=== PATIENT | female | born 1930 | race African-American/Black ===

== ENCOUNTER 2016-08-14 12:28 | Inpatient (IN) | payer OTHER ==
[2016-08-14 13:41] LABS: MCH 28.9 pg (25.7-33.7); MCHC 32.2 g/dl (32.0-36.0); MEAN CELL VOLUME 89.7 fl (80-96); MEAN PLT VOLUME 8.6 fl (7.5-11.1); PLATELET COUNT 212 K/MM3 (134-434); RDW 19.3 % (11.6-15.6); WHITE BLOOD COUNT 8.1 K/mm3 (4.0-10.0)
--- NOTE | 2016-08-14 13:45 | PDOC ---
History of Present Illness - General History Source: Patient, Family, Old Records Exam Limitations: No Limitations - History of Present Illness Initial Comments: 08/14/16 14:10 The patient is a 86 year old female presenting with her family, with a significant past medical history of a-fib (on Coumadin), COPD, hypertension, hyperlipidemia, diabetes, CHF, and meningioma, who presents to the emergency department after being sent by Dr. Dallas Avalos for anemia and possible blood transfusion. Dr. Avalos noted that the patient's blood count was lower than her baseline. On presentation the patient notes that she has chronic body pains and shortness of breath. The patient currently has no other complaints at the moment. The patient denies chest pain, headache and dizziness. Denies fever, chills, nausea, vomit, diarrhea and constipation. Denies dysuria, frequency, urgency and hematuria. Allergies: IV and oral contrast, sulfa Past surgical history: None reported Social history: No alcohol, tobacco or drug use reported PMD - Dr. Dallas Avalos <Bucky Soliz - Last Filed: 08/14/16 14:10> - General History Source: Patient, Old Records Exam Limitations: No Limitations <Nicole Laureanoel - Last Filed: 08/14/16 16:20> - General Chief Complaint: Revisit, Lab Variance Stated Complaint: LAB VARIANCE (PCP SENT) Time Seen by Provider: 08/14/16 13:00 Past History <Bucky Soliz - Last Filed: 08/14/16 14:10> - Past Medical History Anemia: No Asthma: No Cancer: Yes (W/U in progress for BRAIN TUMOR) Cardiac Disorders: Yes (afib) CVA: No COPD: Yes CHF: Yes (A-FIB) Dementia: No Diabetes: Yes (NIDDM) GI Disorders: No Disorders: Yes (UTI) HTN: Yes Hypercholesterolemia: Yes Liver Disease: No Seizures: No Thyroid Disease: No - Surgical History Abdominal Surgery: No Appendectomy: No Cardiac Surgery: No Cholecystectomy: No Lung Surgery: No Neurologic Surgery: No Orthopedic Surgery: No - Immunization History Immunization Up to Date: Yes - Psycho/Social/Smoking Cessation Hx Anxiety: No Suicidal Ideation: No Smoking Status: Yes Smoking History: Never smoked Have you smoked in the past 12 months: No Number of Cigarettes Smoked Daily: 0 If you are a former smoker, when did you quit?: 1989 Information on smoking cessation initiated: No Hx Alcohol Use: No Drug/Substance Use Hx: No Substance Use Type: None Hx Substance Use Treatment: No <Gil Laureano - Last Filed: 08/14/16 16:20> - Past Medical History Allergies/Adverse Reactions: Allergies Allergy/AdvReac Type Severity Reaction Status Date / Time Iodinated Contrast Media - Allergy Verified 08/14/16 12:37 Oral and [IV Dye, Iodine Containing Contrast ] Sulfa (Sulfonamide Allergy Verified 08/14/16 12:37 Antibiotics) Home Medications: Ambulatory Orders Bumetanide [Bumex -] 2 mg PO DAILY 08/14/16 Diltiazem [Cardizem -] 60 mg PO BID 08/14/16 Metformin HCl [Metformin HCl ER] 500 mg PO DAILY 08/14/16 Metoprolol Tartrate [Lopressor -] 25 mg PO DAILY 08/14/16 Pregabalin [Lyrica -] 50 mg PO BID 08/14/16 Propylthiouracil 50 mg PO DAILY 08/14/16 Ranitidine [Zantac -] 150 mg PO BID 08/14/16 Review of Systems - Review of Systems Able to Perform ROS?: Yes Comments:: 08/14/16 14:10 GENERAL/CONSTITUTIONAL: No fever or chills. No weakness. HEAD, EYES, EARS, NOSE AND THROAT: No change in vision. No ear pain or discharge. No sore throat. CARDIOVASCULAR: (+) Shortness of breath. No chest pain RESPIRATORY: No cough, wheezing, or hemoptysis. GASTROINTESTINAL: No nausea, vomiting, diarrhea or constipation. GENITOURINARY: No dysuria, frequency, or change in urination. MUSCULOSKELETAL: No joint or muscle swelling or pain. No neck or back pain. SKIN: No rash NEUROLOGIC: No headache, vertigo, loss of consciousness, or change in strength/ sensation. ENDOCRINE: No increased thirst. No abnormal weight change HEMATOLOGIC/LYMPHATIC: No anemia, easy bleeding, or history of blood clots. ALLERGIC/IMMUNOLOGIC: No hives or skin allergy. <Bucky Soliz - Last Filed: 08/14/16 14:10> *Physical Exam - Vital Signs Last Vital Signs Temp Pulse Resp BP Pulse Ox 97.9 F 104 H 18 160/58 97 08/14/16 12:31 08/14/16 12:31 08/14/16 12:31 08/14/16 12:31 08/14/16 13:46 - Physical Exam Comments: 08/14/16 14:10 GENERAL: Awake, alert, and fully oriented, in no acute distress HEAD: No signs of trauma, normocephalic, atraumatic EYES: PERRLA, EOMI, sclera anicteric, conjunctiva clear ENT: Auricles normal inspection, hearing grossly normal, nares patent, oropharynx clear without exudates. Moist mucosa NECK: Normal ROM, supple, no lymphadenopathy, JVD, or masses LUNGS: (+) Diminished right lower breath sounds. HEART: Regular rate and rhythm, normal S1 and S2, no murmurs, rubs or gallops, peripheral pulses normal and equal bilaterally. ABDOMEN: Soft, nontender, normoactive bowel sounds. No guarding, no rebound. No masses EXTREMITIES: Normal inspection, Normal range of motion, no edema. No clubbing or cyanosis. NEUROLOGICAL: Cranial nerves II through XII grossly intact. Normal speech, no focal sensorimotor deficits SKIN: Warm, Dry, normal turgor, no rashes or lesions noted. <Bucky Soliz - Last Filed: 08/14/16 14:10> - Vital Signs Last Vital Signs Temp Pulse Resp BP Pulse Ox 97.9 F 104 H 18 160/58 94 L 08/14/16 12:31 08/14/16 12:31 08/14/16 12:31 08/14/16 12:31 08/14/16 12:31 <Gil Laureano - Last Filed: 08/14/16 16:20> Heart Score/ECG Review #1 ECG reviewed & interpreted by me at: 14:15 08/14/16 14:36 atrial fibrillation 99, no std/dutch, TWI III, normal axis, normal intervals, QTC 426 msec <Gil Laureano - Last Filed: 08/14/16 16:20> ED Treatment Course - LABORATORY CBC & Chemistry Diagram: 08/14/16 13:35 08/14/16 13:35 - ADDITIONAL ORDERS Additional order review: 08/14/16 13:35 RBC 2.84 L D MCV 89.7 MCHC 32.2 RDW 19.3 H D MPV 8.6 Neutrophils % Y Lymphocytes % Y <MickyrosmeryShoBuckyeunice Smithe - Last Filed: 08/14/16 14:10> - LABORATORY CBC & Chemistry Diagram: 08/14/16 13:35 08/14/16 13:35 - RADIOLOGY Radiology Studies Ordered: Category Date Time Status CHEST X-RAY PORTABLE* [RAD] Stat Radiology 08/14/16 13:13 Ordered <Gil Laureano - Last Filed: 08/14/16 16:20> Medical Decision Making - Medical Decision Making 08/14/16 13:44 A portion of this note was documented by scribe services under my direction. I have reviewed the details of the note, within reason, and agree with the documentation with the following case summary and management plan written by me. Patient treated in the ED. Nursing notes are reviewed and incorporated into the medical decision-making. Vital signs reviewed. Peripheral IV access obtained by the nurse, laboratory studies are drawn and sent, reviewed and interpreted by myself. Vital Signs Temp Pulse Resp BP Pulse Ox 97.9 F 104 H 18 160/58 94 L 08/14/16 12:31 08/14/16 12:31 08/14/16 12:31 08/14/16 12:31 08/14/16 12:31 86 year old female with past medical history of hyperlipidemia, GERD, anemia, congestive heart failure, COPD, chronic bony pains, multiple myeloma, atrial fibrillation on Coumadin sent in by primary care physician Dr. Dallas Avalos for anemia. Patient has noted in last several weeks that she's been becoming increasingly short of breath. Denies chest pain or recent illnesses. They do weekly blood draws and noticed that this week that she had a hemoglobin 8 which is typically above 10. The patient was sent in for blood transfusion as well as admission to the hospital for evaluation for potential rule out GI bleed and for we'll double myeloma and anemia. Requests Dr. Baumann and Dr. Smart for evaluation. 08/14/16 16:16 Chest xray reviewed. Cardiomegaly. CBC, BMP 08/14/16 13:35 08/14/16 13:35 CMP Sodium 136 mmol/L (136-145) 08/14/16 13:35 Potassium TNP 08/14/16 13:35 Chloride 101 mmol/L (98-107) 08/14/16 13:35 Carbon Dioxide 26 mmol/L (21-32) 08/14/16 13:35 Anion Gap 9 (8-16) 08/14/16 13:35 BUN 20 mg/dL (7-18) H D 08/14/16 13:35 Creatinine 1.5 mg/dL (0.55-1.02) H D 08/14/16 13:35 Creat Clearance w eGFR 32.77 (>60) 08/14/16 13:35 Random Glucose 87 mg/dL (74-106) 08/14/16 13:35 Calcium 10.3 mg/dL (8.5-10.1) H 08/14/16 13:35 Magnesium TNP 08/14/16 13:35 Total Bilirubin 0.5 mg/dL (0.2-1.0) D 08/14/16 13:35 AST TNP 08/14/16 13:35 ALT TNP 08/14/16 13:35 Alkaline Phosphatase TNP 08/14/16 13:35 Creatine Kinase TNP 08/14/16 13:35 Troponin I < 0.02 ng/ml (0.00-0.05) 08/14/16 13:35 B-Natriuretic Peptide TNP 08/14/16 13:35 Total Protein TNP 08/14/16 13:35 Albumin 2.5 g/dl (3.4-5.0) L D 08/14/16 13:35 Repeat labs ordered. 1u PRBC ordered. Case discussed with Dr. Simpson. He accepts patient to med/surg admission. <Gil Laureano - Last Filed: 08/14/16 16:20> *DC/Admit/Observation/Transfer - Attestations Scribe Attestion: 08/14/16 14:11 Documentation prepared by Bucky Soliz, acting as bilingual medical receptionist for Gil Laureano MD <Bucky Soliz - Last Filed: 08/14/16 14:10> - Discharge Dispostion Admit: Yes <Gil Laureano - Last Filed: 08/14/16 16:20> Diagnosis at time of Disposition: Anemia Qualifiers: Anemia type: unspecified type Qualified Code(s): D64.9 - Anemia, unspecified Multiple myeloma Qualifiers: Multiple myeloma remission status: unspecified Qualified Code(s): C90.00 - Multiple myeloma not having achieved remission - Discharge Dispostion Condition at time of disposition: Stable - Referrals Referrals: Dallas Avalos MD [Primary Care Provider] -
[2016-08-14 14:03] LABS: INR 1.81 (0.82-1.09); PROTHROMBIN TIME (PATIENT) 20.1 SEC (9.98-11.88)
[2016-08-14 14:51] LABS: PLATELET ESTIMATE ADEQUATE (NORMAL)
[2016-08-14 14:52] LABS: URINE APPEARANCE CLEAR; URINE BILIRUBIN NEGATIVE (NEGATIVE); URINE BLOOD NEGATIVE (NEGATIVE); URINE COLOR LTYELLOW; URINE GLUCOSE (UA) NEGATIVE (NEGATIVE); URINE KETONE NEGATIVE (NEGATIVE); URINE NITRITE NEGATIVE (NEGATIVE); URINE PROTEIN NEGATIVE (NEGATIVE); URINE UROBILINOGEN NEGATIVE E.U./dl (0.2-1.0)
[2016-08-14 15:28] LABS: URINE LEUK ESTERASE TRACE (NEGATIVE)
[2016-08-14 15:35] LABS: URINE BACTERIA RARE /hpf (NONE SEEN); URINE HYALINE CAST 13 /lpf; URINE RBC 2 /hpf (0-3); URINE WBC 3 /hpf (3-5)
[2016-08-14 15:40] LABS: ALBUMIN 2.5 g/dl (3.4-5.0); ANION GAP 9 (8-16); BILIRUBIN,TOTAL 0.5 mg/dL (0.2-1.0); CALCIUM 10.3 mg/dL (8.5-10.1); CO2 26 mmol/L (21-32); CREATININE 1.5 mg/dL (0.55-1.02); GLUCOSE,RANDOM 87 mg/dL (74-106)
[2016-08-14 15:51] LABS: TROPONIN I < 0.02 ng/ml (0.00-0.05)
--- NOTE | 2016-08-14 16:01 | EKG ---
Test Reason : Blood Pressure : / mmHG Vent. Rate : 099 BPM Atrial Rate : 340 BPM P-R Int : 000 ms QRS Dur : 082 ms QT Int : 332 ms P-R-T Axes : 000 -16 022 degrees QTc Int : 426 ms ATRIAL FIBRILLATION ABNORMAL ECG WHEN COMPARED WITH ECG OF 20-NOV-2015 16:19, QT HAS SHORTENED Confirmed by EMIGDIO BROWN MD ([id number]) on 08/14/2016 4:01:38 PM Referred By: Confirmed By:EMIGDIO BROWN MD
[2016-08-14 16:02] LABS: STOOL FOR OCCULT BLOOD NEGATIVE (NEGATIVE)
[2016-08-14] MEDS ORDERED: oxyCODONE HCL 5 MG TABLET PO PRN (16:39)
[2016-08-14] MEDS ORDERED: ONDANSETRON 4 MG/2 ML VIAL IVPB PRN (16:39)
--- NOTE | 2016-08-14 16:50 | HP ---
Admitting History and Physical - Primary Care Physician PCP: Dallas Avalos - Admission Chief Complaint: I was sent in for blood History of Present Illness: Ms Sanchez is a very pleasant 86 year old female who was sent in for transfusion secondary to symptomatic anemia. She says that over the past week she was having shortness of breath. She experiences it both on exertion and at rest. She had a cough earlier this week, but that has resolved. She also notes that she had abdominal pain, it is bilateral in the lower quadrant. She notes she has decreased appetite and has lost about 20 lbs in the past 6 months. She denies lightheadedness, passing out, chest pain, or melena. She is not throwing up. She was seen by Dr Avalos and was sent in for evaluation. She is still short of breath now. She denies fevers, chills, diarrhea, difficulty or pain on urination, or edema. She has a history of constipation but it is treated with medications. History Source: Patient, Family Member Limitations to Obtaining History: No Limitations - Past Medical History Cardiovascular: Yes: AFIB, HTN, Hyperlipdemia Pulmonary: Yes: COPD Renal/: Yes: UTI (recent Hx of ESBL UTI) Endocrine: Yes: Diabetes Mellitus - Past Surgical History Past Surgical History: Yes: Joint Replacement - Smoking History Smoking history: Never smoked Have you smoked in the past 12 months: No Aproximately how many cigarettes per day: 0 If you are a former smoker, when did you quit?: 1989 - Alcohol/Substance Use Hx Alcohol Use: No History of Substance Use: reports: None - Social History Usual Living Arrangement: Yes: With Child ADL: Support Services History of Recent Travel: No Home Medications - Allergies Allergies/Adverse Reactions: Allergies Allergy/AdvReac Type Severity Reaction Status Date / Time Iodinated Contrast Media - Allergy Verified 08/14/16 12:37 Oral and [IV Dye, Iodine Containing Contrast ] Sulfa (Sulfonamide Allergy Verified 08/14/16 12:37 Antibiotics) - Home Medications Home Medications: Ambulatory Orders Atorvastatin Ca [Lipitor] 20 mg PO HS 08/14/16 Bumetanide [Bumex -] 2 mg PO DAILY 08/14/16 Diltiazem [Cardizem -] 60 mg PO BID 08/14/16 Ergocalciferol (Vitamin D2) [Vitamin D2] 2,000 unit PO DAILY 08/14/16 Metformin HCl [Metformin HCl ER] 500 mg PO DAILY 08/14/16 Metoprolol Tartrate [Lopressor -] 25 mg PO DAILY 08/14/16 Montelukast Na [Singulair -] 10 mg PO HS 08/14/16 Oxycodone HCl/Acetaminophen [Oxycodone-Acetaminophen 5-325] 1 each PO DAILY PRN 08/14/16 Potassium Chloride [Klor-Con] 20 meq PO DAILY 08/14/16 Pregabalin [Lyrica -] 50 mg PO BID 08/14/16 Propylthiouracil 50 mg PO DAILY 08/14/16 Ranitidine [Zantac -] 150 mg PO BID 08/14/16 Family Disease History - Family Disease History Family Disease History: CA: Father, Mother, Sister Review of Systems Findings/Remarks: Full review of systems obtained, as per HPI and otherwise negative Physical Examination Vital Signs: Vital Signs Temperature 97.9 F 08/14/16 12:31 Pulse Rate 104 H 08/14/16 12:31 Respiratory Rate 18 08/14/16 12:31 Blood Pressure 160/58 08/14/16 12:31 O2 Sat by Pulse Oximetry (%) 97 08/14/16 13:46 Constitutional: Yes: Well Nourished, No Distress, Calm Eyes: Yes: Conjunctiva Clear, EOM Intact, PERRL HENT: Yes: Atraumatic, Normocephalic Cardiovascular: Yes: Pulse Irregular. No: Tachycardia, Gallop, Murmur, Rub Respiratory: Yes: CTA Bilaterally, Tachypnea. No: Rales, Rhonchi, Wheezes Gastrointestinal: Yes: Normal Bowel Sounds, Soft. No: Distention, Tenderness Extremities: Yes: WNL Edema: No Labs: Laboratory Results - last 24 hr 08/14/16 08/14/16 08/14/16 13:13 13:35 13:35 WBC 8.1 RBC 2.84 L D Hgb 8.2 L D Hct 25.4 L D MCV 89.7 MCHC 32.2 RDW 19.3 H D Plt Count 212 MPV 8.6 Neutrophils % 62.0 Lymphocytes % 31.0 Monocytes % 4.0 Eosinophils % 2.0 Basophils % 1.0 Differential Comment Manual diff done Platelet Estimate Adequate INR 1.81 H PTT (Actin FS) 25.0 L D Sodium Potassium Chloride Carbon Dioxide Anion Gap BUN Creatinine Creat Clearance w eGFR Random Glucose Calcium Magnesium Total Bilirubin AST ALT Alkaline Phosphatase Creatine Kinase Troponin I B-Natriuretic Peptide Total Protein Albumin Urine Color Ltyellow Urine Appearance Clear Urine pH 5.0 Ur Specific Pep 1.010 Urine Protein Negative Urine Glucose (UA) Negative Urine Ketones Negative Urine Blood Negative Urine Nitrite Negative Urine Bilirubin Negative Urine Urobilinogen Negative Ur Leukocyte Esterase Trace H Urine RBC 2 Urine WBC 3 Ur Epithelial Cells Rare Urine Bacteria Rare Hyaline Casts 13 Stool Occult Blood Negative Blood Type Antibody Screen Crossmatch 08/14/16 08/14/16 08/14/16 13:35 13:35 15:27 WBC RBC Hgb Hct MCV MCHC RDW Plt Count MPV Neutrophils % Lymphocytes % Monocytes % Eosinophils % Basophils % Differential Comment Platelet Estimate INR PTT (Actin FS) Sodium 136 Cancelled Potassium TNP Cancelled Chloride 101 Cancelled Carbon Dioxide 26 Cancelled Anion Gap 9 Cancelled BUN 20 H D Cancelled Creatinine 1.5 H D Cancelled Creat Clearance w eGFR 32.77 Cancelled Random Glucose 87 Cancelled Calcium 10.3 H Cancelled Magnesium TNP Total Bilirubin 0.5 D Cancelled AST TNP Cancelled ALT TNP Cancelled Alkaline Phosphatase TNP Cancelled Creatine Kinase TNP Cancelled Troponin I < 0.02 Cancelled B-Natriuretic Peptide TNP Cancelled Total Protein TNP Cancelled Albumin 2.5 L D Cancelled Urine Color Urine Appearance Urine pH Ur Specific Pep Urine Protein Urine Glucose (UA) Urine Ketones Urine Blood Urine Nitrite Urine Bilirubin Urine Urobilinogen Ur Leukocyte Esterase Urine RBC Urine WBC Ur Epithelial Cells Urine Bacteria Hyaline Casts Stool Occult Blood Blood Type O POSITIVE Antibody Screen Negative Crossmatch See Detail Imaging - Results Chest X-ray: Report Reviewed, Image Reviewed Problem List - Problems (1) Anemia Assessment/Plan: -suspect secondary to multiple myeloma -transfuse -consult hematology -monitor Code(s): D64.9 - ANEMIA, UNSPECIFIED Qualifiers: Anemia type: unspecified type Qualified Code(s): D64.9 - Anemia, unspecified (2) Multiple myeloma Assessment/Plan: -family says do not want aggressive therapy -hematology consulted for treatment options Code(s): C90.00 - MULTIPLE MYELOMA NOT HAVING ACHIEVED REMISSION Qualifiers: Multiple myeloma remission status: not in remission Qualified Code(s ): C90.00 - Multiple myeloma not having achieved remission (3) Atrial fibrillation Assessment/Plan: -rate controlled -will hold coumadin at the moment since with anemia Code(s): I48.91 - UNSPECIFIED ATRIAL FIBRILLATION Qualifiers: Atrial fibrillation type: chronic Qualified Code(s): I48.2 - Chronic atrial fibrillation (4) COPD (chronic obstructive pulmonary disease) Assessment/Plan: -patient with shortness of breath -transfuse -if still short of breath, will treat for exacerbation Code(s): J44.9 - CHRONIC OBSTRUCTIVE PULMONARY DISEASE, UNSPECIFIED (5) Congestive heart failure Assessment/Plan: -not in exacerbation -hold diuretics since with CHEL Code(s): I50.9 - HEART FAILURE, UNSPECIFIED (6) Diabetes mellitus Assessment/Plan: -continue home regimen -FSBS and SSI Code(s): E11.9 - TYPE 2 DIABETES MELLITUS WITHOUT COMPLICATIONS (7) Hyperlipidemia Assessment/Plan: -continue lipitor Code(s): E78.5 - HYPERLIPIDEMIA, UNSPECIFIED (8) CHEL (acute kidney injury) Assessment/Plan: -secondary to anemia -transfuse Code(s): N17.9 - ACUTE KIDNEY FAILURE, UNSPECIFIED
[2016-08-14] MEDS ORDERED: oxyCODONE HCL 5 MG TABLET PO ONE (17:09)
--- NOTE | 2016-08-14 17:09 | CON.GI ---
Consult Consult Specialty:: GI Referred by:: Dr. Landry Simpson Reason for Consultation:: Anemia - History of Present Illness Chief Complaint: "My doctor told me my blood was low" History of Present Illness: 86F admitted through [facility] ER for evaluation of anemia. She denies nausea, vomiting, dysphagia, odynophagia, overt rectal bleeding, melena. She denies OTC NSAID use. She gives a history of chronic constipation however there has been no acute change in her bowel habits. Her family was bedside aiding with her history. She may have had 2 colonoscopies and possibly an upper endoscopy in her lifetime with Dr. Poe however quite a few years ago. Her mother at age 82 from colon cancer complications while one of her sisters may have had stomach cancer. Ms. Alicea also has a ? history of multiple myeloma. She had a guaiac performed in the ER that was negative. - History Source History Provided By: Patient, Family Member Limitations to Obtaining History: No Limitations - Past Medical History Cardio/Vascular: Yes: AFIB, HTN, Hyperlipdemia Pulmonary: Yes: COPD Renal/: Yes: UTI (recent Hx of ESBL UTI) Endocrine: Yes: Diabetes Mellitus - Past Surgical History Past Surgical History: Yes: Joint Replacement (Right total hip replacement) - Alcohol/Substance Use Hx Alcohol Use: No History of Substance Use: reports: None - Smoking History Smoking history: Never smoked Have you smoked in the past 12 months: No Aproximately how many cigarettes per day: 0 If you are a former smoker, when did you quit?: 1989 - Social History ADL: Support Services Occupation: Retired Place of : [employer] History of Recent Travel: No Home Medications - Allergies Allergies/Adverse Reactions: Allergies Allergy/AdvReac Type Severity Reaction Status Date / Time Iodinated Contrast Media - Allergy Verified 08/14/16 12:37 Oral and [IV Dye, Iodine Containing Contrast ] Sulfa (Sulfonamide Allergy Verified 08/14/16 12:37 Antibiotics) - Home Medications Home Medications: Ambulatory Orders Atorvastatin Ca [Lipitor] 20 mg PO HS 08/14/16 Bumetanide [Bumex -] 2 mg PO DAILY 08/14/16 Diltiazem [Cardizem -] 60 mg PO BID 08/14/16 Ergocalciferol (Vitamin D2) [Vitamin D2] 2,000 unit PO DAILY 08/14/16 Metformin HCl [Metformin HCl ER] 500 mg PO DAILY 08/14/16 Metoprolol Tartrate [Lopressor -] 25 mg PO DAILY 08/14/16 Montelukast Na [Singulair -] 10 mg PO HS 08/14/16 Oxycodone HCl/Acetaminophen [Oxycodone-Acetaminophen 5-325] 1 each PO DAILY PRN 08/14/16 Potassium Chloride [Klor-Con] 20 meq PO DAILY 08/14/16 Pregabalin [Lyrica -] 50 mg PO BID 08/14/16 Propylthiouracil 50 mg PO DAILY 08/14/16 Ranitidine [Zantac -] 150 mg PO BID 08/14/16 Family Disease History - Family Disease History Family Disease History: CA: Father ( 58 Throat cancer), Mother ( 82 colon cancer), Sister (1 , stomach cancer, 1 sarcoidosis), Other: Son ( 2 healthy), Daughter (4 healthy) Review of Systems - Review of Systems Cardiovascular: reports: Shortness of Breath. denies: Chest Pain Gastrointestinal: reports: Abdominal Pain (lower flanks b/l), Constipation. denies: Melena, Rectal Bleeding Physical Exam-GI Vital Signs: Vital Signs Temperature 97.9 F 08/14/16 12:31 Pulse Rate 90 08/14/16 16:41 Respiratory Rate 20 08/14/16 16:41 Blood Pressure 112/60 08/14/16 16:41 O2 Sat by Pulse Oximetry (%) 92 L 08/14/16 16:41 Constitutional: Yes: Calm Eyes: No: Sclera Icterus Cardiovascular: Yes: Pulse Irregular (regular rate) Respiratory: Yes: Diminished (at bases, poor inspiratory effort) Gastrointestinal Inspection: No: Distention ...Auscultate: Yes: Normoactive Bowel Sounds ...Palpate: No: Hepatomegaly, Splenomegaly, Tenderness ...Rectal Exam: Yes: Guaiac Negative (Brown stool, no masses) Edema: No (lipoma on right sumner) Neurological: Yes: Alert Labs: INR, PTT INR 1.81 (0.82-1.09) H 08/14/16 13:35 CBC, BMP 08/14/16 13:35 08/14/16 15:27 Hepatic Panel Total Bilirubin 0.5 mg/dL (0.2-1.0) D 08/14/16 13:35 AST TNP 08/14/16 13:35 ALT TNP 08/14/16 13:35 Alkaline Phosphatase TNP 08/14/16 13:35 Albumin 2.5 g/dl (3.4-5.0) L D 08/14/16 13:35 Problem List - Problems (1) Anemia Assessment/Plan: For heme work-up and blood transfusion. I also discussed a GI work-up with Ms. Alicea and her family who was present bedside, particularly in the setting of a family history of GI malignancies. We discussed EGD/Colonoscopy. We discussed potential risks of the procedures like but not limited to bleeding, perforation requiring surgery to repair, infection and sedation medication effects all of which could be potentially life threatening. Her and her family would like to think about this and have her undergo hematologic evaluation prior to committing her to invasive testing. Heme consult pending Code(s): D64.9 - ANEMIA, UNSPECIFIED Qualifiers: Anemia type: unspecified type Qualified Code(s): D64.9 - Anemia, unspecified
[2016-08-14 17:47] VITALS: BMI 23.3
--- NOTE | 2016-08-14 22:42 | CONSULT ---
Consult - text type - Consultation Consultation Note: The patient is a 86 year old female presenting with her family, with a significant past medical history of a-fib (on Coumadin), COPD, hypertension, hyperlipidemia, diabetes, CHF, and meningioma, who presents to the emergency department after being sent by Dr. Dallas Avalos for anemia and possible blood transfusion. Dr. Avalos noted that the patient's blood count was lower than her baseline. Patient notes that she has chronic body pains and shortness of breath. The patient is mildly confused. Allergies: IV and oral contrast, sulfa Past surgical history: None reported Social history: No alcohol, tobacco or drug use - Past Medical History Cancer: Yes (W/U in progress for BRAIN TUMOR) Cardiac Disorders: Yes (afib) COPD: Yes CHF: Yes (A-FIB) Diabetes: Yes (NIDDM) Disorders: Yes (UTI) HTN: Yes Hypercholesterolemia: Yes ?? mYELOMA - Psycho/Social/Smoking Cessation Hx Smoking Status: Yes Smoking History: Never smoked Allergies/Adverse Reactions: Allergies Allergy/AdvReac Type Severity Reaction Status Date / Time Iodinated Contrast Media - Allergy Verified 08/14/16 12:37 Oral and [IV Dye, Iodine Containing Contrast ] Sulfa (Sulfonamide Allergy Verified 08/14/16 12:37 Antibiotics) Home Medications: Ambulatory Orders Bumetanide [Bumex -] 2 mg PO DAILY 08/14/16 Diltiazem [Cardizem -] 60 mg PO BID 08/14/16 Metformin HCl [Metformin HCl ER] 500 mg PO DAILY 08/14/16 Metoprolol Tartrate [Lopressor -] 25 mg PO DAILY 08/14/16 Pregabalin [Lyrica -] 50 mg PO BID 08/14/16 Propylthiouracil 50 mg PO DAILY 08/14/16 Ranitidine [Zantac -] 150 mg PO BID 08/14/16 - Vital Signs afvss GENERAL: Awake, alert, and fully oriented, in no acute distress HEAD: No signs of trauma, normocephalic, atraumatic NECK: Normal ROM, supple, no lymphadenopathy, JVD, or masses LUNGS: (+) Diminished right lower breath sounds. HEART: Regular rate and rhythm, normal S1 and S2, no murmurs, rubs or gallops, ABDOMEN: Soft, nontender, normoactive bowel sounds. No guarding, no rebound. No masses EXTREMITIES: Normal inspection, Normal range of motion, no edema. No clubbing or cyanosis. NEUROLOGICAL: Cranial nerves II through XII grossly intact. Normal speech, no focal sensorimotor deficits SKIN: Warm, Dry, normal turgor, no rashes or lesions noted. lABS REVIEWED a/p 86 year old female with past medical history of hyperlipidemia, GERD, anemia, congestive heart failure, COPD, chronic bony pains, atrial fibrillation on Coumadin sent in by primary care physician for anemia. Patient WAS ADMITTED FOR EXERTIONAL SHORTNESS OF BREATH. Need to discuss with PMD about h/o myeloma ALbumin/globulin ratio and hypercalcemia, anemia seenm to be s/o myeloma will check SFLCA/SPEP/UPEP/bone survery transfusion support will follow
[2016-08-14] MEDS: PREGABALIN 50 MG CAPSULE PO SCH (23:02)
[2016-08-14] MEDS: RANITIDINE HCL 150 MG TABLET (FP) PO SCH (23:02)
[2016-08-14] MEDS: MONTELUKAST NA 10 MG TABLET PO SCH (23:02)
[2016-08-14] MEDS: DOCUSATE SODIUM 100 MG CAPSULE (FP) PO SCH (23:02)
[2016-08-14] MEDS: ATORVASTATIN CA 10 MG TABLET (FP) PO SCH (23:02)
[2016-08-14] MEDS: dilTIAZem HCL 60 MG TABLET (FP) PO SCH (23:03)
[2016-08-15] MEDS ORDERED: INSULIN (NOVOLOG) ASPART 100 UNITS/ML 10ML VIAL ONE (05:48)
[2016-08-15] MEDS: INSULIN SLIDING SCALE (NOVOLOG) 1 VIAL SQ SCH ×2 (07:23→17:54)
[2016-08-15 07:45] LABS: MCH 29.1 pg (25.7-33.7); MCHC 32.8 g/dl (32.0-36.0); MEAN CELL VOLUME 88.6 fl (80-96); MEAN PLT VOLUME 8.8 fl (7.5-11.1); PLATELET COUNT 212 K/MM3 (134-434); RDW 19.3 % (11.6-15.6); WHITE BLOOD COUNT 6.4 K/mm3 (4.0-10.0)
[2016-08-15] MEDS: METOPROLOL SUCCINATE 25 MG TAB.SR.24H (FP) PO SCH (09:19)
[2016-08-15] MEDS: dilTIAZem HCL 60 MG TABLET (FP) PO SCH ×2 (09:19→22:54)
[2016-08-15] MEDS: CHOLECALCIFEROL (VITAMIN D3) 1,000 UNIT TABLET (FP) PO SCH (09:20)
[2016-08-15] MEDS: RANITIDINE HCL 150 MG TABLET (FP) PO SCH ×2 (09:20→22:53)
[2016-08-15] MEDS: PREGABALIN 50 MG CAPSULE PO SCH ×2 (09:20→22:54)
[2016-08-15] MEDS: POLYETHYLENE GLYCOL 3350 119 GM BTL PO SCH (09:20)
[2016-08-15] MEDS: DOCUSATE SODIUM 100 MG CAPSULE (FP) PO SCH ×2 (09:20→22:54)
[2016-08-15 09:36] LABS: PLATELET ESTIMATE ADEQUATE (NORMAL)
[2016-08-15 10:20] LABS: CALCIUM 9.8 mg/dL (8.5-10.1); COCKROFT - GAULT 32.4785; CREATININE 1.2 mg/dL (0.55-1.02); MAGNESIUM 1.7 mg/dL (1.8-2.4); PHOSPHOROUS 3.5 mg/dL (2.5-4.9)
[2016-08-15 10:28] LABS: THYROID STIMULATING HORMONE 0.57 uIU/ml (0.358-3.74)
[2016-08-15 11:46] LABS: FERRITIN 357.668 ng/ml (6.9-282.5); FREE T4 1.22 ng/dl (0.76-1.46)
--- NOTE | 2016-08-15 12:55 | PN ---
Progress Note, Physician Chief Complaint: Ms Sanchez is without complaint. Is not short of breath currently. No cp or n/ v. - Current Medication List Current Medications: Active Medications Acetaminophen (Tylenol -) 650 mg PO Q4H PRN PRN Reason: FEVER OR PAIN Albuterol Sulfate (Ventolin 0.083% Nebulizer Soln -) 1 amp NEB Q6H PRN PRN Reason: SHORT OF BREATH/WHEEZING Atorvastatin Calcium (Lipitor -) 10 mg PO [facility] Last Admin: 08/14/16 23:02 Dose: 10 mg Cholecalciferol (Vitamin D3 -) 2,000 unit PO DAILY [facility] Last Admin: 08/15/16 09:20 Dose: 2,000 unit Diltiazem HCl (Cardizem -) 60 mg PO BID [facility] Last Admin: 08/15/16 09:19 Dose: 60 mg Docusate Sodium (Colace -) 100 mg PO BID [facility] Last Admin: 08/15/16 09:20 Dose: 100 mg Insulin Aspart (Novolog Vial Sliding Scale -) [facility] PR[facility] Reason: Protocol Last Admin: 08/15/16 07:23 Dose: Not Given Ipratropium [place] (Atrovent 0.02% Nebulizer -) 1 amp NEB Q6H PRN PRN Reason: WHEEZING Metoprolol Succinate (Toprol Xl -) 25 mg PO DAILY [facility] Last Admin: 08/15/16 09:19 Dose: 25 mg Montelukast Sodium (Singulair -) 10 mg PO HS [facility] Last Admin: 08/14/16 23:02 Dose: 10 mg Ondansetron HCl (Zofran Injection) 4 mg IVPB Q6H PRN PRN Reason: NAUSEA Oxycodone HCl (Roxicodone -) 5 mg PO Q4H PRN PRN Reason: PAIN Polyethylene Glycol (Miralax (For Daily Use) -) 17 gm PO DAILY [facility] Last Admin: 08/15/16 09:20 Dose: 17 gm Pregabalin (Lyrica -) 50 mg PO BID [facility] Last Admin: 08/15/16 09:20 Dose: 50 mg Propylthiouracil (Ptu -) 50 mg PO DAILY [facility] Ranitidine HCl (Zantac -) 150 mg PO BID [facility] Last Admin: 08/15/16 09:20 Dose: 150 mg - Objective Vital Signs: Vital Signs Temperature 98.1 F 08/15/16 07:50 Pulse Rate 103 H 08/15/16 07:50 Respiratory Rate 20 08/15/16 07:50 Blood Pressure 115/82 08/15/16 07:50 O2 Sat by Pulse Oximetry (%) 97 08/15/16 09:00 Constitutional: Yes: Well Nourished, No Distress, Calm Cardiovascular: Yes: Regular Rate and Rhythm. No: Gallop, Murmur, Rub Respiratory: Yes: Regular, CTA Bilaterally. No: Rales, Rhonchi, Wheezes Gastrointestinal: Yes: Normal Bowel Sounds, Soft. No: Distention, Tenderness Extremities: Yes: WNL Edema: No Labs: CBC, BMP 08/15/16 06:00 08/15/16 06:00 INR, PTT INR 1.81 (0.82-1.09) H 08/14/16 13:35 Problem List - Problems (1) Anemia Code(s): D64.9 - ANEMIA, UNSPECIFIED Qualifiers: Anemia type: unspecified type Qualified Code(s): D64.9 - Anemia, unspecified (2) Multiple myeloma Code(s): C90.00 - MULTIPLE MYELOMA NOT HAVING ACHIEVED REMISSION Qualifiers: Multiple myeloma remission status: not in remission Qualified Code(s ): C90.00 - Multiple myeloma not having achieved remission (3) Atrial fibrillation Code(s): I48.91 - UNSPECIFIED ATRIAL FIBRILLATION Qualifiers: Atrial fibrillation type: chronic Qualified Code(s): I48.2 - Chronic atrial fibrillation (4) COPD (chronic obstructive pulmonary disease) Code(s): J44.9 - CHRONIC OBSTRUCTIVE PULMONARY DISEASE, UNSPECIFIED (5) Congestive heart failure Code(s): I50.9 - HEART FAILURE, UNSPECIFIED (6) Diabetes mellitus Code(s): E11.9 - TYPE 2 DIABETES MELLITUS WITHOUT COMPLICATIONS (7) Hyperlipidemia Code(s): E78.5 - HYPERLIPIDEMIA, UNSPECIFIED (8) CHEL (acute kidney injury) Code(s): N17.9 - ACUTE KIDNEY FAILURE, UNSPECIFIED Assessment/Plan (1) Anemia Assessment/Plan: -suspect secondary to multiple myeloma -blood transfusion held, will give today Code(s): D64.9 - ANEMIA, UNSPECIFIED Qualifiers: Anemia type: unspecified type Qualified Code(s): D64.9 - Anemia, unspecified (2) Multiple myeloma Assessment/Plan: -family says do not want aggressive therapy -hematology consulted for treatment options Code(s): C90.00 - MULTIPLE MYELOMA NOT HAVING ACHIEVED REMISSION Qualifiers: Multiple myeloma remission status: not in remission Qualified Code(s ): C90.00 - Multiple myeloma not having achieved remission (3) Atrial fibrillation Assessment/Plan: -rate controlled -continue to hold coumadin until clear not blood loss anemia Code(s): I48.91 - UNSPECIFIED ATRIAL FIBRILLATION Qualifiers: Atrial fibrillation type: chronic Qualified Code(s): I48.2 - Chronic atrial fibrillation (4) COPD (chronic obstructive pulmonary disease) Assessment/Plan: -improved today -monitor after transfusion Code(s): J44.9 - CHRONIC OBSTRUCTIVE PULMONARY DISEASE, UNSPECIFIED (5) Congestive heart failure Assessment/Plan: -not in exacerbation -hold diuretics since with CHEL Code(s): I50.9 - HEART FAILURE, UNSPECIFIED (6) Diabetes mellitus Assessment/Plan: -continue home regimen -FSBS and SSI Code(s): E11.9 - TYPE 2 DIABETES MELLITUS WITHOUT COMPLICATIONS (7) Hyperlipidemia Assessment/Plan: -continue lipitor Code(s): E78.5 - HYPERLIPIDEMIA, UNSPECIFIED (8) CHEL (acute kidney injury) Assessment/Plan: -improved but not baseline -transfuse -monitor for improvement Code(s): N17.9 - ACUTE KIDNEY FAILURE, UNSPECIFIED
--- NOTE | 2016-08-15 16:37 | PN ---
GI Progress Note Subjective: GI NOte: NO overt GI bleeding. Has back pain. Discussed case with Dr Figueroa who given the hypercalcemia feels the anemia reflects myeloma - Objective Vital Signs: Vital Signs Temperature 98.7 F 08/15/16 14:34 Pulse Rate 82 08/15/16 14:34 Respiratory Rate 18 08/15/16 14:34 Blood Pressure 114/79 08/15/16 14:34 O2 Sat by Pulse Oximetry (%) 97 08/15/16 09:00 Constitutional: Calm ...Auscultate: Yes: Normoactive Bowel Sounds ...Palpate: Yes: Soft, Other (nontender) Labs: CBC, BMP 08/15/16 06:00 08/15/16 06:00 INR, PTT INR 1.81 (0.82-1.09) H 08/14/16 13:35 Assessment/Plan Anemia appears to be on a hematological basis. Please recall us as necessary. Dr Poe will be covering this 3 day weekend.
[2016-08-15] MEDS: PROPYLTHIOURACIL 50 MG TABLET (UD) PO SCH (17:25)
[2016-08-15] MEDS: MONTELUKAST NA 10 MG TABLET PO SCH (22:54)
[2016-08-15] MEDS: ATORVASTATIN CA 10 MG TABLET (FP) PO SCH (22:54)
[2016-08-16] MEDS ORDERED: INSULIN (NOVOLOG) ASPART 100 UNITS/ML 10ML VIAL ONE (06:02)
[2016-08-16 06:11] LABS: SERUM IRON 67 ug/dL (27-139); TOTAL IRON BINDING CAPACITY 175 ug/dL (250-450); UIBC 108 ug/dL (118-369)
[2016-08-16] MEDS: INSULIN SLIDING SCALE (NOVOLOG) 1 VIAL SQ SCH ×2 (06:17→17:04)
[2016-08-16 07:42] LABS: MCHC 33.2 g/dl (32.0-36.0); MEAN CELL VOLUME 87.4 fl (80-96); MEAN PLT VOLUME 8.9 fl (7.5-11.1); PLATELET COUNT 208 K/MM3 (134-434); RDW 18.3 % (11.6-15.6); WHITE BLOOD COUNT 8.1 K/mm3 (4.0-10.0)
--- NOTE | 2016-08-16 08:03 | HOSP ---
Physical Examination Vital Signs: Vital Signs Temperature 98.9 F 08/16/16 06:17 Pulse Rate 99 H 08/16/16 06:17 Respiratory Rate 20 08/16/16 06:17 Blood Pressure 132/79 08/16/16 06:17 O2 Sat by Pulse Oximetry (%) 97 08/15/16 21:00 Labs: CBC, BMP 08/16/16 06:00 Hospitalist Encounter Assessment: Notified by RN that patient was found on the floor. Patient admitted for symptomatic anemia and all anticoagulation and platelets have been held. When examining the patient , she was confused but baseline. She reports she was talking to her son on the phone and had to get up. When asking if she hit her head she reports "I hit my head on the soft part of the bed." She denies any dizziness, chest pain, shortness of breath, nausea, or vomiting. Vitals: BP- 121/58 HR- 109 TEMP: 98.8 F 02: 96% RA Physical Exam: -GENERAL: Alert Awake and oriented to person -HEAD: No signs of trauma -EYES: PERRL, Sclera anicterus -MOUTH: Moist mucous membranes -LUNGS: CTA bilaterally -CHEST: Tachycardia with regular rhythm, no m/r/g -ABDOMEN: Soft, nontender, nondistended, no ecchymosis -NEURO: Sensory intact. Normal strength bilaterally. PLAN: -Fall protocol ordered -Head CT ordered -Repeat INR ordered -Monitoring Q2H Visit type - Emergency Visit Emergency Visit: No - New Patient This patient is new to me today: Yes Date on this admission: 08/16/16 - Critical Care Critical Care patient: No
[2016-08-16 08:18] LABS: INR 1.74 (0.82-1.09); PROTHROMBIN TIME (PATIENT) 19.4 SEC (9.98-11.88)
[2016-08-16] MEDS: dilTIAZem HCL 60 MG TABLET (FP) PO SCH ×2 (10:23→21:41)
[2016-08-16] MEDS: METOPROLOL SUCCINATE 25 MG TAB.SR.24H (FP) PO SCH (10:23)
[2016-08-16] MEDS: DOCUSATE SODIUM 100 MG CAPSULE (FP) PO SCH ×2 (10:23→21:41)
[2016-08-16] MEDS: RANITIDINE HCL 150 MG TABLET (FP) PO SCH ×2 (10:23→21:41)
[2016-08-16] MEDS: PREGABALIN 50 MG CAPSULE PO SCH ×2 (10:23→21:41)
[2016-08-16] MEDS: CHOLECALCIFEROL (VITAMIN D3) 1,000 UNIT TABLET (FP) PO SCH (10:23)
[2016-08-16 10:24] LABS: ALBUMIN 2.7 g/dl (3.4-5.0); BILIRUBIN,TOTAL 0.9 mg/dL (0.2-1.0); COCKROFT - GAULT 32.4785; CREATININE 1.2 mg/dL (0.55-1.02); MAGNESIUM 1.8 mg/dL (1.8-2.4); PHOSPHOROUS 2.9 mg/dL (2.5-4.9)
[2016-08-16] MEDS: CYANOCOBALAMIN (VITAMIN B-12) 1000 MCG/1 ML VIAL IM SCH (10:24)
[2016-08-16] MEDS: PROPYLTHIOURACIL 50 MG TABLET (UD) PO SCH (10:24)
[2016-08-16] MEDS: POLYETHYLENE GLYCOL 3350 119 GM BTL PO SCH (10:25)
[2016-08-16 10:28] LABS: TOT PROT 11.8 g/dl (6.4-8.2)
[2016-08-16 11:06] LABS: ANISOCYTOSIS 1+; HYPOCHROMIA 1+; PLATELET COMMENT2 NO CLOTTING DETECTED; PLATELET ESTIMATE ADEQUATE (NORMAL); POLYCHROMASIA 2+; SMUDGE CELLS FEW
[2016-08-16] MEDS: ACETAMINOPHEN 325 MG TABLET (FP) PO PRN (11:41)
--- NOTE | 2016-08-16 13:21 | PN ---
Progress Note, Physician Chief Complaint: Patient doesn't recall her fall this AM. No headache. History of Present Illness: Patient admitted for anemia thought to be due to Multiple Myeloma and given a blood transfusion. Hb today 9.2 GM. Slipped to floor in room today; CAT Scan of head: No acute change. Patient is pleasant but continues to be confused even before the fall. Also DM with low normal BGM's; not on routine DM Meds. K 3.2 : to Rx and follow. - Current Medication List Current Medications: Active Medications Acetaminophen (Tylenol -) 650 mg PO Q4H PRN PRN Reason: FEVER OR PAIN Last Admin: 08/16/16 11:41 Dose: 650 mg Albuterol Sulfate (Ventolin 0.083% Nebulizer Soln -) 1 amp NEB Q6H PRN PRN Reason: SHORT OF BREATH/WHEEZING Atorvastatin Calcium (Lipitor -) 10 mg PO HS [facility] Last Admin: 08/15/16 22:54 Dose: 10 mg Cholecalciferol (Vitamin D3 -) 2,000 unit PO DAILY [facility] Last Admin: 08/16/16 10:23 Dose: 2,000 unit Cyanocobalamin (Vitamin B12 Injection -) 1,000 mcg IM DAILY [facility] Stop: 08/20/16 10:01 Last Admin: 08/16/16 10:24 Dose: 1,000 mcg Diltiazem HCl (Cardizem -) 60 mg PO BID [facility] Last Admin: 08/16/16 10:23 Dose: 60 mg Docusate Sodium (Colace -) 100 mg PO BID [facility] Last Admin: 08/16/16 10:23 Dose: 100 mg Insulin Aspart (Novolog Vial Sliding Scale -) 0 vial SQ BIDAC [facility] PRN Reason: Protocol Last Admin: 08/16/16 06:17 Dose: Not Given Ipratropium [place] (Atrovent 0.02% Nebulizer -) 1 amp NEB Q6H PRN PRN Reason: WHEEZING Metoprolol Succinate (Toprol Xl -) 25 mg PO DAILY [facility] Last Admin: 08/16/16 10:23 Dose: 25 mg Montelukast Sodium (Singulair -) 10 mg PO HS [facility] Last Admin: 08/15/16 22:54 Dose: 10 mg Ondansetron HCl (Zofran Injection) 4 mg IVPB Q6H PRN PRN Reason: NAUSEA Oxycodone HCl (Roxicodone -) 5 mg PO Q4H PRN PRN Reason: PAIN Last Admin: 08/16/16 11:45 Dose: 5 mg Polyethylene Glycol (Miralax (For Daily Use) -) 17 gm PO DAILY [facility] Last Admin: 08/16/16 10:25 Dose: 17 gm Pregabalin (Lyrica -) 50 mg PO BID [facility] Last Admin: 08/16/16 10:23 Dose: 50 mg Propylthiouracil (Ptu -) 50 mg PO DAILY [facility] Last Admin: 08/16/16 10:24 Dose: 50 mg Ranitidine HCl (Zantac -) 150 mg PO BID [facility] Last Admin: 08/16/16 10:23 Dose: 150 mg - Objective Vital Signs: Vital Signs Temperature 98.4 F 08/16/16 12:02 Pulse Rate 116 H 08/16/16 12:02 Respiratory Rate 18 08/16/16 12:02 Blood Pressure 137/82 08/16/16 12:02 O2 Sat by Pulse Oximetry (%) 97 08/15/16 21:00 Constitutional: Yes: Calm HENT: No: Atraumatic Neck: Yes: Supple Cardiovascular: Yes: Pulse Irregular Respiratory: Yes: Diminished Gastrointestinal: Yes: Soft. No: Tenderness Genitourinary: No: Sheppard Present Edema: No Wound/Incision: Yes: Other (ecchymosis right dorsum of hand) Neurological: Yes: Alert, Confusion Labs: CBC, BMP 08/16/16 06:00 08/16/16 06:00 INR, PTT INR 1.74 (0.82-1.09) H 08/16/16 06:00 - ....Imaging Cat Scan: Report Reviewed EKG: Report Reviewed Problem List - Problems (1) Fall Assessment/Plan: Unwitnessed fall this AM; CAT of Head: No acute change fall precautions order on EMR. Code(s): W19.XXXA - UNSPECIFIED FALL, INITIAL ENCOUNTER (2) CHLE (acute kidney injury) Assessment/Plan: Stable BUN and Creatinine Code(s): N17.9 - ACUTE KIDNEY FAILURE, UNSPECIFIED (3) Anemia Assessment/Plan: After transusion HB 7.3-9.2GM Code(s): D64.9 - ANEMIA, UNSPECIFIED Qualifiers: Anemia type: unspecified type Qualified Code(s): D64.9 - Anemia, unspecified (4) Multiple myeloma Assessment/Plan: Still not in remission; seen by Hematology MD. Code(s): C90.00 - MULTIPLE MYELOMA NOT HAVING ACHIEVED REMISSION Qualifiers: Multiple myeloma remission status: not in remission Qualified Code(s ): C90.00 - Multiple myeloma not having achieved remission (5) Atrial fibrillation Assessment/Plan: May have to reconsider Coumadin restart due to fall and confusion. Code(s): I48.91 - UNSPECIFIED ATRIAL FIBRILLATION Qualifiers: Atrial fibrillation type: chronic Qualified Code(s): I48.2 - Chronic atrial fibrillation (6) Diabetes mellitus Assessment/Plan: [facility] noted Code(s): E11.9 - TYPE 2 DIABETES MELLITUS WITHOUT COMPLICATIONS (7) Confusion and disorientation Assessment/Plan: Baseline confusion; ?? had a neuro evaluation. Code(s): F99 - MENTAL DISORDER, NOT OTHERWISE SPECIFIED (8) Hypokalemia Assessment/Plan: K 3.2; will Rx and follow. Code(s): E87.6 - HYPOKALEMIA
[2016-08-16] MEDS: POTASSIUM CHLORIDE TABS 10 MEQ TABLET.ER (FP) PO SCH ×2 (14:04→21:41)
[2016-08-16] MEDS: ATORVASTATIN CA 10 MG TABLET (FP) PO SCH (21:41)
[2016-08-16] MEDS: MONTELUKAST NA 10 MG TABLET PO SCH (21:42)
[2016-08-17] MEDS: INSULIN SLIDING SCALE (NOVOLOG) 1 VIAL SQ SCH ×2 (06:00→15:55)
[2016-08-17 07:41] LABS: MCH 28.9 pg (25.7-33.7); MCHC 32.6 g/dl (32.0-36.0); MEAN CELL VOLUME 88.6 fl (80-96); MEAN PLT VOLUME 8.8 fl (7.5-11.1); PLATELET COUNT 186 K/MM3 (134-434); RDW 18.1 % (11.6-15.6); WHITE BLOOD COUNT 6.6 K/mm3 (4.0-10.0)
[2016-08-17 08:07] LABS: HEMATOCRIT 22.8 % (34.0-46.6)
[2016-08-17] MEDS: ACETAMINOPHEN 325 MG TABLET (FP) PO PRN ×3 (08:40→16:56)
[2016-08-17 08:44] LABS: CALCIUM 9.9 mg/dL (8.5-10.1); COCKROFT - GAULT 35.4365; CREATININE 1.1 mg/dL (0.55-1.02)
[2016-08-17 09:19] LABS: METAMYELOCYTE 1 % (0-2); PLATELET ESTIMATE ADEQUATE (NORMAL)
[2016-08-17 09:20] LABS: ANISOCYTOSIS 1+; HYPOCHROMIA 1+; MICROCYTOSIS 1+; POLYCHROMASIA FEW
[2016-08-17] MEDS ORDERED: PT OWN MED DRAWER 7, Y5N ONE (09:31)
[2016-08-17] MEDS: CHOLECALCIFEROL (VITAMIN D3) 1,000 UNIT TABLET (FP) PO SCH (09:32)
[2016-08-17] MEDS: POTASSIUM CHLORIDE TABS 10 MEQ TABLET.ER (FP) PO SCH ×2 (09:32→22:03)
[2016-08-17] MEDS: DOCUSATE SODIUM 100 MG CAPSULE (FP) PO SCH ×2 (09:32→22:03)
[2016-08-17] MEDS: RANITIDINE HCL 150 MG TABLET (FP) PO SCH ×2 (09:32→22:03)
[2016-08-17] MEDS: dilTIAZem HCL 60 MG TABLET (FP) PO SCH ×2 (09:32→22:03)
[2016-08-17] MEDS: PREGABALIN 50 MG CAPSULE PO SCH ×2 (09:33→22:03)
[2016-08-17] MEDS: METOPROLOL SUCCINATE 25 MG TAB.SR.24H (FP) PO SCH (09:33)
[2016-08-17] MEDS: PROPYLTHIOURACIL 50 MG TABLET (UD) PO SCH (09:33)
[2016-08-17] MEDS: POLYETHYLENE GLYCOL 3350 119 GM BTL PO SCH (09:34)
[2016-08-17] MEDS: CYANOCOBALAMIN (VITAMIN B-12) 1000 MCG/1 ML VIAL IM SCH (09:35)
[2016-08-17] MEDS: IPRATROPIUM BR 0.02% 0.5 MG/2.5 ML VIAL.NEB. NEB PRN (11:28)
[2016-08-17] MEDS: ALBUTEROL SO4 0.083% IH SOL 2.5 MG/3 ML VIAL.NEB. NEB PRN (11:29)
[2016-08-17] MEDS ORDERED: BISACODYL 5 MG TABLET.DR (FP) PO ONE (13:00)
--- NOTE | 2016-08-17 13:08 | PN ---
Progress Note, Physician Chief Complaint: Patient more talkative and smiling today. History of Present Illness: Patient admitted with anemia and Multiple Myeloma. Hb now 8.8 GM after blood transfusion. She is in atrial fibrillation and has been on coumadin on past admissions but that Rx was not on her current ambulatory msd list; I will consult Cardiology MD who knew her from previous admission. The patient was confused yesterdy but much more aware today smiling and friendly. - Current Medication List Current Medications: Active Medications Acetaminophen (Tylenol -) 650 mg PO Q4H PRN PRN Reason: FEVER OR PAIN Last Admin: 08/17/16 12:08 Dose: 650 mg Albuterol Sulfate (Ventolin 0.083% Nebulizer Soln -) 1 amp NEB Q6H PRN PRN Reason: SHORT OF BREATH/WHEEZING Last Admin: 08/17/16 11:29 Dose: 1 amp Atorvastatin Calcium (Lipitor -) 10 mg PO HS [facility] Last Admin: 08/16/16 21:41 Dose: 10 mg Bisacodyl (Dulcolax -) 10 mg PO ONCE ONE Stop: 08/17/16 13:01 Cholecalciferol (Vitamin D3 -) 2,000 unit PO DAILY [facility] Last Admin: 08/17/16 09:32 Dose: 2,000 unit Cyanocobalamin (Vitamin B12 Injection -) 1,000 mcg IM DAILY [facility] Stop: 08/20/16 10:01 Last Admin: 08/17/16 09:35 Dose: 1,000 mcg Diltiazem HCl (Cardizem -) 60 mg PO BID [facility] Last Admin: 08/17/16 09:32 Dose: 60 mg Docusate Sodium (Colace -) 100 mg PO BID [facility] Last Admin: 08/17/16 09:32 Dose: 100 mg Insulin Aspart (Novolog Vial Sliding Scale -) 0 vial SQ BIDAC [facility] PRN Reason: Protocol Last Admin: 08/17/16 06:00 Dose: Not Given Ipratropium [place] (Atrovent 0.02% Nebulizer -) 1 amp NEB Q6H PRN PRN Reason: WHEEZING Last Admin: 08/17/16 11:28 Dose: 1 amp Metoprolol Succinate (Toprol Xl -) 25 mg PO DAILY [facility] Last Admin: 08/17/16 09:33 Dose: 25 mg Montelukast Sodium (Singulair -) 10 mg PO HS [facility] Last Admin: 08/16/16 21:42 Dose: 10 mg Ondansetron HCl (Zofran Injection) 4 mg IVPB Q6H PRN PRN Reason: NAUSEA Oxycodone HCl (Roxicodone -) 5 mg PO Q4H PRN PRN Reason: PAIN Last Admin: 08/16/16 11:45 Dose: 5 mg Polyethylene Glycol (Miralax (For Daily Use) -) 17 gm PO DAILY [facility] Last Admin: 08/17/16 09:34 Dose: 17 gm Potassium Chloride (K-Dur -) 10 meq PO BID [facility] Last Admin: 08/17/16 09:32 Dose: 10 meq Pregabalin (Lyrica -) 50 mg PO BID [facility] Last Admin: 08/17/16 09:33 Dose: Not Given Propylthiouracil (Ptu -) 50 mg PO DAILY [facility] Last Admin: 08/17/16 09:33 Dose: 50 mg Ranitidine HCl (Zantac -) 150 mg PO BID [facility] Last Admin: 08/17/16 09:32 Dose: 150 mg - Objective Vital Signs: Vital Signs Temperature 98.2 F 08/17/16 06:02 Pulse Rate 93 H 08/17/16 06:02 Respiratory Rate 20 08/17/16 06:02 Blood Pressure 159/74 08/17/16 06:02 O2 Sat by Pulse Oximetry (%) 95 08/16/16 21:00 Constitutional: Yes: Calm Eyes: Yes: Conjunctiva Clear Cardiovascular: Yes: Pulse Irregular Respiratory: Yes: Diminished, Rhonchi (at bases) Gastrointestinal: Yes: Soft Genitourinary: No: Sheppard Present Edema: No Neurological: Yes: Alert Labs: CBC, BMP 08/17/16 06:00 08/17/16 06:00 INR, PTT INR 1.74 (0.82-1.09) H 08/16/16 06:00 Problem List - Problems (1) Fall Assessment/Plan: No residual effect notd; CAT Scan of head : No acute finding. Code(s): W19.XXXA - UNSPECIFIED FALL, INITIAL ENCOUNTER (2) CHEL (acute kidney injury) Assessment/Plan: BUN 12 Creatinine 1.1 Code(s): N17.9 - ACUTE KIDNEY FAILURE, UNSPECIFIED (3) Anemia Assessment/Plan: Due to MM Hb now 8.8GM Code(s): D64.9 - ANEMIA, UNSPECIFIED Qualifiers: Anemia type: unspecified type Qualified Code(s): D64.9 - Anemia, unspecified (4) Multiple myeloma Assessment/Plan: On Rx as per Hematology MD; Not in remission. Code(s): C90.00 - MULTIPLE MYELOMA NOT HAVING ACHIEVED REMISSION Qualifiers: Multiple myeloma remission status: not in remission Qualified Code(s ): C90.00 - Multiple myeloma not having achieved remission (5) Atrial fibrillation Assessment/Plan: Will have Cardiology input on restarting coumadin Code(s): I48.91 - UNSPECIFIED ATRIAL FIBRILLATION Qualifiers: Atrial fibrillation type: chronic Qualified Code(s): I48.2 - Chronic atrial fibrillation (6) Diabetes mellitus Assessment/Plan: [place] [address] Code(s): E11.9 - TYPE 2 DIABETES MELLITUS WITHOUT COMPLICATIONS (7) Confusion and disorientation Assessment/Plan: Much improved today. Code(s): F99 - MENTAL DISORDER, NOT OTHERWISE SPECIFIED (8) Hypokalemia Assessment/Plan: Lab stable Code(s): E87.6 - HYPOKALEMIA
[2016-08-17] MEDS: guaiFENesin 200 MG/10 ML 10 ML UNIT-DOSE CUPS PO PRN (14:43)
--- NOTE | 2016-08-17 16:19 | CON.CARD ---
Cardiology Consult (text) - Consultation Consultation Note: CC" weight gain, fast heart rate 86 yo with h/o afib, diastolic CHF, htn, hl, h/o rheumatic fever, mild-moderate MR, Dm, meningioma, new diagnosis of multiple myeloma, subclinical hyperthyroidism on PTU who presents with anemia also with worsening sob recently. + weakness + abdominal pain recently, + decreased appetite and has lost about 20 lbs in the past 6 months. She denies orthopnea, pnd, le edema, palps, lightheadedness, bleeding, bood in the stool or transient neurologic symptoms. She denies fevers, chills, sweats, nausea, vomiting, diarrhea, headache, congestion, visual disturbances. + recent cough, now resolved. Per office notes, wt at home typically 161-162. PMhx: per hpi Family hx: sister with PPM Social hx: former smoker , no etoh or illicits ROS: Per HPI. Additionally, no f/c/s, n/v/d, h/a, rashes, cough, congestion, bleeding, CP, transient neurologic symptoms. Ambulatory Orders Atorvastatin Ca [Lipitor] 20 mg PO HS 08/14/16 Bumetanide [Bumex -] 2 mg PO DAILY 08/14/16 Diltiazem [Cardizem -] 60 mg PO BID 08/14/16 Ergocalciferol (Vitamin D2) [Vitamin D2] 2,000 unit PO DAILY 08/14/16 Metformin HCl [Metformin HCl ER] 500 mg PO DAILY 08/14/16 Metoprolol Tartrate [Lopressor -] 25 mg PO DAILY 08/14/16 Montelukast Na [Singulair -] 10 mg PO HS 08/14/16 Oxycodone HCl/Acetaminophen [Oxycodone-Acetaminophen 5-325] 1 each PO DAILY PRN 08/14/16 Potassium Chloride [Klor-Con] 20 meq PO DAILY 08/14/16 Pregabalin [Lyrica -] 50 mg PO BID 08/14/16 Propylthiouracil 50 mg PO DAILY 08/14/16 Ranitidine [Zantac -] 150 mg PO BID 08/14/16 Current Medications Acetaminophen (Tylenol -) 650 mg PO Q4H PRN PRN Reason: FEVER OR PAIN Last Admin: 08/17/16 12:08 Dose: 650 mg Albuterol Sulfate (Ventolin 0.083% Nebulizer Soln -) 1 amp NEB Q6H PRN PRN Reason: SHORT OF BREATH/WHEEZING Last Admin: 08/17/16 11:29 Dose: 1 amp Atorvastatin Calcium (Lipitor -) 10 mg PO [facility] Last Admin: 08/16/16 21:41 Dose: 10 mg Cholecalciferol (Vitamin D3 -) 2,000 unit PO DAILY [facility] Last Admin: 08/17/16 09:32 Dose: 2,000 unit Cyanocobalamin (Vitamin B12 Injection -) 1,000 mcg IM DAILY [facility] Stop: 08/20/16 10:01 Last Admin: 08/17/16 09:35 Dose: 1,000 mcg Diltiazem HCl (Cardizem -) 60 mg PO BID [facility] Last Admin: 08/17/16 09:32 Dose: 60 mg Docusate Sodium (Colace -) 100 mg PO BID [facility] Last Admin: 08/17/16 09:32 Dose: 100 mg Guaifenesin (Robitussin -) 10 ml PO Q6H PRN PRN Reason: COUGH Last Admin: 08/17/16 14:43 Dose: 10 ml Insulin Aspart (Novolog Vial Sliding Scale -) 0 vial SQ BIDAC [facility] PRN Reason: Protocol Last Admin: 08/17/16 15:55 Dose: Not Given Ipratropium [place] (Atrovent 0.02% Nebulizer -) 1 amp NEB Q6H PRN PRN Reason: WHEEZING Last Admin: 08/17/16 11:28 Dose: 1 amp Metoprolol Succinate (Toprol Xl -) 25 mg PO DAILY [facility] Last Admin: 08/17/16 09:33 Dose: 25 mg Montelukast Sodium (Singulair -) 10 mg PO [facility] Last Admin: 08/16/16 21:42 Dose: 10 mg Ondansetron HCl (Zofran Injection) 4 mg IVPB Q6H PRN PRN Reason: NAUSEA Oxycodone HCl (Roxicodone -) 5 mg PO Q4H PRN PRN Reason: PAIN Last Admin: 08/16/16 11:45 Dose: 5 mg Polyethylene Glycol (Miralax (For Daily Use) -) 17 gm PO DAILY [facility] Last Admin: 08/17/16 09:34 Dose: 17 gm Potassium Chloride (K-Dur -) 10 meq PO BID [facility] Last Admin: 08/17/16 09:32 Dose: 10 meq Pregabalin (Lyrica -) 50 mg PO BID [facility] Last Admin: 08/17/16 09:33 Dose: Not Given Propylthiouracil (Ptu -) 50 mg PO DAILY [facility] Last Admin: 08/17/16 09:33 Dose: 50 mg Ranitidine HCl (Zantac -) 150 mg PO BID [facility] Last Admin: 08/17/16 09:32 Dose: 150 mg Vital Signs - 24 hr 08/16/16 08/16/16 08/16/16 18:02 20:02 21:00 Temperature 97.6 F 98.3 F Pulse Rate 97 H 87 Respiratory 18 20 Rate Blood Pressure 105/66 128/85 O2 Sat by Pulse 95 Oximetry (%) 08/16/16 08/17/16 08/17/16 22:00 00:02 01:27 Temperature 98.3 F 98.4 F 97.5 F L Pulse Rate 87 92 H 86 Respiratory 20 20 20 Rate Blood Pressure 128/85 124/62 97/58 O2 Sat by Pulse Oximetry (%) 08/17/16 08/17/16 08/17/16 04:02 06:02 14:00 Temperature 98.2 F 98.2 F 98 F Pulse Rate 82 93 H 112 H Respiratory 20 20 22 Rate Blood Pressure 112/72 159/74 136/78 O2 Sat by Pulse Oximetry (%) Intake & Output 08/15/16 08/16/16 08/17/16 08/18/16 07:59 07:59 07:59 07:59 Intake Total 250 500 830 100 Balance 250 500 830 100 Weight 140 lb NAD, calm JVD flat, neck supple irregularly irregular, nl rate nl s1, s2 2/6 murmur at sternal border and apex bibasilar crackles, nl eff + bs soft nt nd ext without edema no cyanosis or clubbing + dp/pt no jaundice, diaphoresis CBC, BMP 08/17/16 06:00 08/17/16 06:00 Laboratory Tests 08/14/16 08/14/16 08/15/16 13:35 13:35 06:00 INR 1.81 H Creatinine 1.5 H D Magnesium Iron 67 Ferritin Total Bilirubin AST ALT Alkaline Phosphatase Albumin Free T4 08/15/16 08/16/16 08/16/16 06:00 06:00 06:00 INR 1.74 H Creatinine Magnesium 1.8 Iron Ferritin 357.668 H Total Bilirubin 0.9 D AST 23 D ALT 12 D Alkaline Phosphatase 72 Albumin 2.7 L Free T4 1.22 EKG: afib, 113 bpm CXR: diaphragmatic hernia obscuring lung torrez Echo 06/2015: afib, nl LV/RV, mild-mod MR/TR, hi LAP, mild ao root dil MIBI 2012: no ST changes, probable breast artifact vs. AW ischemia. Nl EF PFTs 2013: no obstr, mild restr, mild decr DLCO 86 yo with h/o afib, diastolic CHF, htn, hl, h/o rheumatic fever, mild-moderate MR, Dm, meningioma, new diagnosis of multiple myeloma, subclinical hyperthyroidism on PTU who presents with anemia Afib with RVR - on home diltiazem and metoprolol. Also with h/o bradycardia and hypotension and so prior plan has been to allow for more lenient rate control. Monitor for now. - as outpatient on anticoagulation with coumadin. Here with anemia, but appears secondary to multiple myeloma. Will discuss with hematology regarding the safety of resuming anticoagulation. No prior history of stroke, OK not to bridge for now. dCHF - current sob likely related to anemia and not volume overload. recent poor po intake and weight loss --> defer diuretics for now, but patient with transfusion requirement, will need ongoing reassessment of volume status HTN - well controlled on current regimen, with intermittent low systolic pressures. Con't. HL - on statin, con't mild-Mod MR - echo 06/2015 - bp control - no signs of valvular decompensation anemia/multiple myeloma? - ongoing mgm't per pmd/honc
[2016-08-17] MEDS: ATORVASTATIN CA 10 MG TABLET (FP) PO SCH (22:03)
[2016-08-17] MEDS: MONTELUKAST NA 10 MG TABLET PO SCH (22:03)
[2016-08-18] MEDS: INSULIN SLIDING SCALE (NOVOLOG) 1 VIAL SQ SCH ×2 (06:13→18:48)
[2016-08-18 07:47] LABS: MCH 29.3 pg (25.7-33.7); MCHC 33.1 g/dl (32.0-36.0); MEAN CELL VOLUME 88.4 fl (80-96); MEAN PLT VOLUME 8.9 fl (7.5-11.1); PLATELET COUNT 185 K/MM3 (134-434); RDW 18.1 % (11.6-15.6)
--- NOTE | 2016-08-18 10:20 | EKG ---
Test Reason : Blood Pressure : / mmHG Vent. Rate : 113 BPM Atrial Rate : 113 BPM P-R Int : 000 ms QRS Dur : 082 ms QT Int : 322 ms P-R-T Axes : 000 -19 027 degrees QTc Int : 441 ms ATRIAL FIBRILLATION WITH RAPID VENTRICULAR RESPONSE ABNORMAL ECG WHEN COMPARED WITH ECG OF 14-AUG-2016 14:13, NO SIGNIFICANT CHANGE WAS FOUND Confirmed by MERON ARVIZU MD ([id number]) on 08/18/2016 10:20:13 AM Referred By: Jonathan KELLY Confirmed By:MERON ARVIZU MD
[2016-08-18] MEDS: CHOLECALCIFEROL (VITAMIN D3) 1,000 UNIT TABLET (FP) PO SCH (10:23)
[2016-08-18] MEDS: POLYETHYLENE GLYCOL 3350 119 GM BTL PO SCH (10:24)
[2016-08-18] MEDS: dilTIAZem HCL 60 MG TABLET (FP) PO SCH ×2 (10:24→22:12)
[2016-08-18] MEDS: DOCUSATE SODIUM 100 MG CAPSULE (FP) PO SCH ×2 (10:24→22:11)
[2016-08-18] MEDS: RANITIDINE HCL 150 MG TABLET (FP) PO SCH ×2 (10:24→22:11)
[2016-08-18] MEDS: PREGABALIN 50 MG CAPSULE PO SCH ×2 (10:24→22:12)
[2016-08-18] MEDS: POTASSIUM CHLORIDE TABS 10 MEQ TABLET.ER (FP) PO SCH ×2 (10:24→22:11)
[2016-08-18] MEDS: METOPROLOL SUCCINATE 25 MG TAB.SR.24H (FP) PO SCH (10:24)
[2016-08-18] MEDS: PROPYLTHIOURACIL 50 MG TABLET (UD) PO SCH (10:25)
[2016-08-18] MEDS: CYANOCOBALAMIN (VITAMIN B-12) 1000 MCG/1 ML VIAL IM SCH (10:25)
[2016-08-18] MEDS: ACETAMINOPHEN 325 MG TABLET (FP) PO PRN (10:30)
[2016-08-18 11:58] LABS: ACANTHOCYTES 1+; ANISOCYTOSIS 1+; FRAGMENTED CELL 1+; OVALOCYTES 1+; PLATELET ESTIMATE ADEQUATE (NORMAL); POLYCHROMASIA 1+; TEAR DROP CELLS 1+
--- NOTE | 2016-08-18 13:10 | PN ---
Progress Note, Physician Chief Complaint: Patient more lethargic today; / post pain Rx; will lower dose of percocet to 2.5mg prn. Not eating well and Calcium up to 10.2 with albumin 2.5 so equivalent level is 11. May need to start IV saline and F/U. Oncology deciding on starting Rx for Multiple Myeloma. Hb slightly lower to 8.5GM. History of Present Illness: As noted in the chief complaint patient laying in bed more lethargic today and not eating well. Also problem with Calcium beginning to elevate and Hematology MD deciding on RX. Patient mostly bedbound and has pain when turning. I asked cardiology to give advice regarding restart of anticoagulation because of A. fibrillation. - Current Medication List Current Medications: Active Medications Acetaminophen (Tylenol -) 650 mg PO Q4H PRN PRN Reason: FEVER OR PAIN Last Admin: 08/18/16 10:30 Dose: 650 mg Albuterol Sulfate (Ventolin 0.083% Nebulizer Soln -) 1 amp NEB Q6H PRN PRN Reason: SHORT OF BREATH/WHEEZING Last Admin: 08/17/16 11:29 Dose: 1 amp Atorvastatin Calcium (Lipitor -) 10 mg PO HS [facility] Last Admin: 08/17/16 22:03 Dose: 10 mg Cholecalciferol (Vitamin D3 -) 2,000 unit PO DAILY [facility] Last Admin: 08/18/16 10:23 Dose: 2,000 unit Cyanocobalamin (Vitamin B12 Injection -) 1,000 mcg IM DAILY [facility] Stop: 08/20/16 10:01 Last Admin: 08/18/16 10:25 Dose: 1,000 mcg Diltiazem HCl (Cardizem -) 60 mg PO BID [facility] Last Admin: 08/18/16 10:24 Dose: 60 mg Docusate Sodium (Colace -) 100 mg PO BID [facility] Last Admin: 08/18/16 10:24 Dose: 100 mg Guaifenesin (Robitussin -) 10 ml PO Q6H PRN PRN Reason: COUGH Last Admin: 08/17/16 14:43 Dose: 10 ml Insulin Aspart (Novolog Vial Sliding Scale -) 0 vial SQ BIDAC [facility] PRN Reason: Protocol Last Admin: 08/18/16 06:13 Dose: Not Given Ipratropium [place] (Atrovent 0.02% Nebulizer -) 1 amp NEB Q6H PRN PRN Reason: WHEEZING Last Admin: 08/17/16 11:28 Dose: 1 amp Metoprolol Succinate (Toprol Xl -) 25 mg PO DAILY [facility] Last Admin: 08/18/16 10:24 Dose: 25 mg Montelukast Sodium (Singulair -) 10 mg PO HS [facility] Last Admin: 08/17/16 22:03 Dose: 10 mg Ondansetron HCl (Zofran Injection) 4 mg IVPB Q6H PRN PRN Reason: NAUSEA Oxycodone HCl (Roxicodone -) 2.5 mg PO Q4H PRN PRN Reason: PAIN Polyethylene Glycol (Miralax (For Daily Use) -) 17 gm PO DAILY [facility] Last Admin: 08/18/16 10:24 Dose: 17 gm Potassium Chloride (K-Dur -) 10 meq PO BID [facility] Last Admin: 08/18/16 10:24 Dose: 10 meq Pregabalin (Lyrica -) 50 mg PO BID [facility] Last Admin: 08/18/16 10:24 Dose: 50 mg Propylthiouracil (Ptu -) 50 mg PO DAILY [facility] Last Admin: 08/18/16 10:25 Dose: 50 mg Ranitidine HCl (Zantac -) 150 mg PO BID [facility] Last Admin: 08/18/16 10:24 Dose: 150 mg - Objective Vital Signs: Vital Signs Temperature 98.3 F 08/17/16 22:00 Pulse Rate 98 H 08/17/16 22:00 Respiratory Rate 20 08/17/16 22:00 Blood Pressure 105/61 08/17/16 22:00 O2 Sat by Pulse Oximetry (%) 94 L 08/17/16 21:00 Constitutional: Yes: Calm Cardiovascular: Yes: Pulse Irregular Respiratory: Yes: Diminished Gastrointestinal: Yes: Soft. No: Distention, Tenderness Genitourinary: No: [place] Present Edema: No Neurological: Yes: Lethargy Labs: CBC, BMP 08/18/16 06:00 08/17/16 06:00 INR, PTT INR 1.74 (0.82-1.09) H 08/16/16 06:00 Problem List - Problems (1) Multiple myeloma Assessment/Plan: calcium 10.2 but with Albumin 2.5 equivalent value is 11. Will start IV fluids; Navi RO aware. Code(s): C90.00 - MULTIPLE MYELOMA NOT HAVING ACHIEVED REMISSION Qualifiers: Multiple myeloma remission status: not in remission Qualified Code(s ): C90.00 - Multiple myeloma not having achieved remission (2) CHEL (acute kidney injury) Assessment/Plan: Stable lab; will follow. Code(s): N17.9 - ACUTE KIDNEY FAILURE, UNSPECIFIED (3) Anemia Assessment/Plan: Hb 8.5 GM; will follow Code(s): D64.9 - ANEMIA, UNSPECIFIED Qualifiers: Anemia type: unspecified type Qualified Code(s): D64.9 - Anemia, unspecified (4) Atrial fibrillation Code(s): I48.91 - UNSPECIFIED ATRIAL FIBRILLATION Qualifiers: Atrial fibrillation type: chronic Qualified Code(s): I48.2 - Chronic atrial fibrillation (5) Diabetes mellitus Code(s): E11.9 - TYPE 2 DIABETES MELLITUS WITHOUT COMPLICATIONS (6) Confusion and disorientation Assessment/Plan: Possibly worsened by Pain Rx. Dose lowered to 2.5mg oxycodone prn. Code(s): F99 - MENTAL DISORDER, NOT OTHERWISE SPECIFIED (7) Hypokalemia Code(s): E87.6 - HYPOKALEMIA (8) Fall Assessment/Plan: Brain Ct: no acute change Code(s): W19.XXXA - UNSPECIFIED FALL, INITIAL ENCOUNTER
--- NOTE | 2016-08-18 14:39 | PN ---
Progress Note (short form) - Note Progress Note: Patient seen and examined Lethargic but follows commands appropriately Last Vital Signs Temp Pulse Resp BP Pulse Ox 98.3 F 98 H 20 105/61 94 L 08/17/16 22:00 08/17/16 22:00 08/17/16 22:00 08/17/16 22:00 08/17/16 21:00 Cor: RSR, No murmurs, No gallops Lungs: Clear to P&A Abd: Soft, Normal bowel sounds, No organomegaly Ext:No significant edema Skin: No rashes, Integument intact Abnormal Lab Results 08/14/16 08/18/16 08/18/16 13:35 06:00 06:00 RBC 2.89 L Hgb 8.5 L Hct 25.5 L RDW 18.1 H Nucleated RBCs 1 H Calcium 10.2 H Crossmatch See Detail Active Medications Generic Name Dose Route Start Last Admin Trade Name Freq PRN Reason Stop Dose Admin Acetaminophen 650 mg 08/14/16 16:39 08/18/16 10:30 Tylenol - PO 650 mg Q4H PRN Administration FEVER OR PAIN Albuterol Sulfate 1 amp 08/14/16 16:39 08/17/16 11:29 Ventolin 0.083% Nebulizer Soln - NEB 1 amp Q6H PRN Administration SHORT OF BREATH/WHEEZING Atorvastatin Calcium 10 mg 08/14/16 22:00 08/17/16 22:03 Lipitor - PO 10 mg HS [facility] Administration Cholecalciferol 2,000 unit 08/15/16 10:00 08/18/16 10:23 Vitamin D3 - PO 2,000 unit DAILY [facility] Administration Cyanocobalamin 1,000 mcg 08/16/16 10:00 08/18/16 10:25 Vitamin B12 Injection - IM 08/20/16 10:01 1,000 mcg DAILY [facility] Administration Diltiazem HCl 60 mg 08/14/16 22:00 08/18/16 10:24 Cardizem - PO 60 mg BID [facility] Administration Docusate Sodium 100 mg 08/14/16 22:00 08/18/16 10:24 Colace - PO 100 mg BID [facility] Administration Guaifenesin 10 ml 08/17/16 14:14 08/17/16 14:43 Robitussin - PO 10 ml Q6H PRN Administration COUGH Sodium Chloride 1,000 mls @ 75 mls/hr 08/18/16 13:30 Normal Saline - IV ASDIR [facility] Insulin Aspart 0 vial 08/15/16 07:00 08/18/16 06:13 Novolog Vial Sliding Scale - SQ Not Given BIDAC [facility] Protocol Ipratropium [place] 1 amp 08/14/16 16:39 08/17/16 11:28 Atrovent 0.02% Nebulizer - NEB 1 amp Q6H PRN Administration WHEEZING Metoprolol Succinate 25 mg 08/15/16 10:00 08/18/16 10:24 Toprol Xl - PO 25 mg DAILY [facility] Administration Montelukast Sodium 10 mg 08/14/16 22:00 08/17/16 22:03 Singulair - PO 10 mg HS [facility] Administration Ondansetron HCl 4 mg 08/14/16 16:39 Zofran Injection IVPB Q6H PRN NAUSEA Oxycodone HCl 2.5 mg 08/18/16 12:55 Roxicodone - PO Q4H PRN PAIN Polyethylene Glycol 17 gm 08/15/16 10:00 08/18/16 10:24 Miralax (For Daily Use) - PO 17 gm DAILY [facility] Administration Potassium Chloride 10 meq 08/16/16 13:45 08/18/16 10:24 K-Dur - PO 10 meq BID [facility] Administration Pregabalin 50 mg 08/14/16 22:00 08/18/16 10:24 Lyrica - PO 50 mg BID [facility] Administration Propylthiouracil 50 mg 08/15/16 10:00 08/18/16 10:25 Ptu - PO 50 mg DAILY [facility] Administration Ranitidine HCl 150 mg 08/14/16 22:00 08/18/16 10:24 Zantac - PO 150 mg BID [facility] Administration A/P 86 year old female with past medical history of hyperlipidemia, GERD, anemia, congestive heart failure, COPD, chronic bony pains, atrial fibrillation on Coumadin sent in by primary care physician for anemia. Patient WAS ADMITTED FOR EXERTIONAL SHORTNESS OF BREATH. Need to discuss with PMD about h/o myeloma ALbumin/globulin ratio. SFLCA and hypercalcemia, anemia seem to be s/o myeloma check bone survery Anemia--?? myeloma related Low B12--on vit. B12 Nl TSH/folic acid/iron studies/stool ocuult Hypercalcemia--on iv hydration check bone survey will consider zometa will get palliative care consult/family meeting
[2016-08-18 14:54] LABS: CALCIUM 9.6 mg/dL (8.5-10.1); COCKROFT - GAULT 32.4785; CREATININE 1.2 mg/dL (0.55-1.02)
--- NOTE | 2016-08-18 15:14 | PN ---
Progress Note (short form) - Note Progress Note: CC: weight gain, fast heart rate S: sleepy today, but also recently got oxycodone. being started on IVF today, but they have not started yet. Current Medications Acetaminophen (Tylenol -) 650 mg PO Q4H PRN PRN Reason: FEVER OR PAIN Last Admin: 08/18/16 10:30 Dose: 650 mg Albuterol Sulfate (Ventolin 0.083% Nebulizer Soln -) 1 amp NEB Q6H PRN PRN Reason: SHORT OF BREATH/WHEEZING Last Admin: 08/17/16 11:29 Dose: 1 amp Atorvastatin Calcium (Lipitor -) 10 mg PO HS [facility] Last Admin: 08/17/16 22:03 Dose: 10 mg Cholecalciferol (Vitamin D3 -) 2,000 unit PO DAILY [facility] Last Admin: 08/18/16 10:23 Dose: 2,000 unit Cyanocobalamin (Vitamin B12 Injection -) 1,000 mcg IM DAILY [facility] Stop: 08/20/16 10:01 Last Admin: 08/18/16 10:25 Dose: 1,000 mcg Diltiazem HCl (Cardizem -) 60 mg PO BID [facility] Last Admin: 08/18/16 10:24 Dose: 60 mg Docusate Sodium (Colace -) 100 mg PO BID [facility] Last Admin: 08/18/16 10:24 Dose: 100 mg Guaifenesin (Robitussin -) 10 ml PO Q6H PRN PRN Reason: COUGH Last Admin: 08/17/16 14:43 Dose: 10 ml Sodium Chloride (Normal Saline -) 1,000 mls @ 75 mls/hr IV ASDIR [facility] Insulin Aspart (Novolog Vial Sliding Scale -) 0 vial SQ BIDAC [facility] PRN Reason: Protocol Last Admin: 08/18/16 06:13 Dose: Not Given Ipratropium [place] (Atrovent 0.02% Nebulizer -) 1 amp NEB Q6H PRN PRN Reason: WHEEZING Last Admin: 08/17/16 11:28 Dose: 1 amp Metoprolol Succinate (Toprol Xl -) 25 mg PO DAILY [facility] Last Admin: 08/18/16 10:24 Dose: 25 mg Montelukast Sodium (Singulair -) 10 mg PO HS [facility] Last Admin: 08/17/16 22:03 Dose: 10 mg Ondansetron HCl (Zofran Injection) 4 mg IVPB Q6H PRN PRN Reason: NAUSEA Oxycodone HCl (Roxicodone -) 2.5 mg PO Q4H PRN PRN Reason: PAIN Polyethylene Glycol (Miralax (For Daily Use) -) 17 gm PO DAILY [facility] Last Admin: 08/18/16 10:24 Dose: 17 gm Potassium Chloride (K-Dur -) 10 meq PO BID [facility] Last Admin: 08/18/16 10:24 Dose: 10 meq Pregabalin (Lyrica -) 50 mg PO BID [facility] Last Admin: 08/18/16 10:24 Dose: 50 mg Propylthiouracil (Ptu -) 50 mg PO DAILY [facility] Last Admin: 08/18/16 10:25 Dose: 50 mg Ranitidine HCl (Zantac -) 150 mg PO BID [facility] Last Admin: 08/18/16 10:24 Dose: 150 mg Vital Signs - 24 hr 08/17/16 08/17/16 08/17/16 18:00 21:00 22:00 Temperature 98.8 F 98.3 F Pulse Rate 97 H 98 H Respiratory 20 20 Rate Blood Pressure 125/71 105/61 O2 Sat by Pulse 94 L Oximetry (%) Intake & Output 08/16/16 08/17/16 08/18/16 08/19/16 07:59 07:59 07:59 07:59 Intake Total 500 830 100 337 Balance 500 830 100 337 NAD, calm. sleepy JVD flat, neck supple irregularly irregular, nl rate nl s1, s2 2/6 murmur at sternal border and apex bibasilar crackles, nl eff + bs soft nt nd ext without edema no cyanosis or clubbing + dp/pt no jaundice, diaphoresis CBC, BMP 08/18/16 06:00 08/18/16 13:35 Laboratory Tests 08/18/16 08/18/16 06:00 13:35 Calcium 10.2 H 9.6 EKG: afib, 113 bpm CXR: diaphragmatic hernia obscuring lung torrez Echo 06/2015: afib, nl LV/RV, mild-mod MR/TR, hi LAP, mild ao root dil MIBI 2012: no ST changes, probable breast artifact vs. AW ischemia. Nl EF PFTs 2013: no obstr, mild restr, mild decr DLCO 86 yo with h/o afib, diastolic CHF, htn, hl, h/o rheumatic fever, mild-moderate MR, Dm, meningioma, new diagnosis of multiple myeloma, subclinical hyperthyroidism on PTU who presents with anemia Afib with RVR - on home diltiazem and metoprolol. Also with h/o bradycardia and hypotension and so prior plan has been to allow for more lenient rate control. Monitor for now. - as outpatient on anticoagulation with coumadin. Discussed with hematology, anemia secondary to multiple myeloma no contraindication to resuming AC. No prior history of stroke, ok to resume coumadin without bridge. dCHF - current sob likely related to anemia and not volume overload. recent poor po intake and weight loss --> defer diuretics for now, but patient with transfusion requirement, will need ongoing reassessment of volume status - 08/18 plan to start IVF today for hypercalcemia. CXR difficult to interpret b/ c of diaphragmatic hernia. Patient also with underlying copd. If continues to require hydration or IVF, consider chest CT to assess for pulmonary edema. Discussed with hematology, OK to give diuretics if needed. close monitoring of oxygen saturation tonight if she is to recieve ivf. HTN - well controlled on current regimen, with intermittent low systolic pressures. Con't. HL - on statin, con't mild-Mod MR - echo 06/2015 - bp control - no signs of valvular decompensation anemia/multiple myeloma? - ongoing mgm't per pmd/honc
[2016-08-18] MEDS: SODIUM CHLORIDE 1,000 ML IV SCH (17:39)
[2016-08-18] MEDS: ATORVASTATIN CA 10 MG TABLET (FP) PO SCH (22:11)
[2016-08-18] MEDS: MONTELUKAST NA 10 MG TABLET PO SCH (22:12)
[2016-08-19] MEDS: SODIUM CHLORIDE 1,000 ML IV SCH ×3 (05:30→21:55)
[2016-08-19] MEDS: INSULIN SLIDING SCALE (NOVOLOG) 1 VIAL SQ SCH ×2 (06:24→17:01)
[2016-08-19] MEDS: ACETAMINOPHEN 325 MG TABLET (FP) PO PRN ×2 (06:49→13:12)
[2016-08-19 07:36] LABS: MCHC 32.6 g/dl (32.0-36.0); MEAN CELL VOLUME 88.8 fl (80-96); MEAN PLT VOLUME 8.9 fl (7.5-11.1); PLATELET COUNT 169 K/MM3 (134-434); RDW 18.3 % (11.6-15.6); WHITE BLOOD COUNT 7.4 K/mm3 (4.0-10.0)
[2016-08-19 08:52] LABS: ALBUMIN 2.2 g/dl (3.4-5.0); CREATININE 1.1 mg/dL (0.55-1.02)
[2016-08-19] MEDS ORDERED: PT OWN MED DRAWER 7, Y5N ONE (09:32)
[2016-08-19] MEDS: POTASSIUM CHLORIDE TABS 10 MEQ TABLET.ER (FP) PO SCH ×2 (09:34→21:55)
[2016-08-19] MEDS: RANITIDINE HCL 150 MG TABLET (FP) PO SCH ×2 (09:34→21:55)
[2016-08-19] MEDS: DOCUSATE SODIUM 100 MG CAPSULE (FP) PO SCH ×2 (09:34→21:56)
[2016-08-19] MEDS: dilTIAZem HCL 60 MG TABLET (FP) PO SCH ×2 (09:34→21:55)
[2016-08-19] MEDS: CHOLECALCIFEROL (VITAMIN D3) 1,000 UNIT TABLET (FP) PO SCH (09:34)
[2016-08-19] MEDS: METOPROLOL SUCCINATE 25 MG TAB.SR.24H (FP) PO SCH (09:35)
[2016-08-19] MEDS: PREGABALIN 50 MG CAPSULE PO SCH ×2 (09:35→21:55)
[2016-08-19] MEDS: PROPYLTHIOURACIL 50 MG TABLET (UD) PO SCH (09:35)
[2016-08-19] MEDS: CYANOCOBALAMIN (VITAMIN B-12) 1000 MCG/1 ML VIAL IM SCH (09:35)
[2016-08-19] MEDS: POLYETHYLENE GLYCOL 3350 119 GM BTL PO SCH (09:35)
[2016-08-19] MEDS: guaiFENesin 200 MG/10 ML 10 ML UNIT-DOSE CUPS PO PRN (09:35)
[2016-08-19] MEDS: IPRATROPIUM BR 0.02% 0.5 MG/2.5 ML VIAL.NEB. NEB PRN (10:55)
[2016-08-19] MEDS: ALBUTEROL SO4 0.083% IH SOL 2.5 MG/3 ML VIAL.NEB. NEB PRN (10:55)
[2016-08-19 11:14] LABS: PLATELET ESTIMATE ADEQUATE (NORMAL); POLYCHROMASIA 1+
[2016-08-19 11:15] LABS: ANISOCYTOSIS 1+; FRAGMENTED CELL 1+; OVALOCYTES 1+; TEAR DROP CELLS 1+
--- NOTE | 2016-08-19 14:08 | PN ---
Progress Note, Physician Chief Complaint: Ms Sanchez is without complaint. Denies cp, sob, n/v. - Current Medication List Current Medications: Active Medications Acetaminophen (Tylenol -) 650 mg PO Q4H PRN PRN Reason: FEVER OR PAIN Last Admin: 08/19/16 13:12 Dose: 650 mg Albuterol Sulfate (Ventolin 0.083% Nebulizer Soln -) 1 amp NEB Q6H PRN PRN Reason: SHORT OF BREATH/WHEEZING Last Admin: 08/19/16 10:55 Dose: 1 amp Atorvastatin Calcium (Lipitor -) 10 mg PO HS [facility] Last Admin: 08/18/16 22:11 Dose: 10 mg Cholecalciferol (Vitamin D3 -) 2,000 unit PO DAILY [facility] Last Admin: 08/19/16 09:34 Dose: 2,000 unit Cyanocobalamin (Vitamin B12 Injection -) 1,000 mcg IM DAILY [facility] Stop: 08/20/16 10:01 Last Admin: 08/19/16 09:35 Dose: 1,000 mcg Diltiazem HCl (Cardizem -) 60 mg PO BID [facility] Last Admin: 08/19/16 09:34 Dose: 60 mg Docusate Sodium (Colace -) 100 mg PO BID [facility] Last Admin: 08/19/16 09:34 Dose: 100 mg Guaifenesin (Robitussin -) 10 ml PO Q6H PRN PRN Reason: COUGH Last Admin: 08/19/16 09:35 Dose: 10 ml Sodium Chloride (Normal Saline -) 1,000 mls @ 75 mls/hr IV ASDIR [facility] Last Admin: 08/19/16 05:30 Dose: 75 mls/hr Insulin Aspart (Novolog Vial Sliding Scale -) 0 vial SQ BIDAC [facility] PRN Reason: Protocol Last Admin: 08/19/16 06:24 Dose: Not Given Ipratropium [place] (Atrovent 0.02% Nebulizer -) 1 amp NEB Q6H PRN PRN Reason: WHEEZING Last Admin: 08/19/16 10:55 Dose: 1 amp Metoprolol Succinate (Toprol Xl -) 25 mg PO DAILY [facility] Last Admin: 08/19/16 09:35 Dose: 25 mg Montelukast Sodium (Singulair -) 10 mg PO HS [facility] Last Admin: 08/18/16 22:12 Dose: 10 mg Ondansetron HCl (Zofran Injection) 4 mg IVPB Q6H PRN PRN Reason: NAUSEA Oxycodone HCl (Roxicodone -) 2.5 mg PO Q4H PRN PRN Reason: PAIN Polyethylene Glycol (Miralax (For Daily Use) -) 17 gm PO DAILY [facility] Last Admin: 08/19/16 09:35 Dose: 17 gm Potassium Chloride (K-Dur -) 10 meq PO BID [facility] Last Admin: 08/19/16 09:34 Dose: 10 meq Pregabalin (Lyrica -) 50 mg PO BID [facility] Last Admin: 08/19/16 09:35 Dose: 50 mg Propylthiouracil (Ptu -) 50 mg PO DAILY [facility] Last Admin: 08/19/16 09:35 Dose: 50 mg Ranitidine HCl (Zantac -) 150 mg PO BID [facility] Last Admin: 08/19/16 09:34 Dose: 150 mg - Objective Vital Signs: Vital Signs Temperature 98.5 F 08/19/16 09:25 Pulse Rate 93 H 08/19/16 09:25 Respiratory Rate 20 08/19/16 09:25 Blood Pressure 127/87 08/19/16 09:25 O2 Sat by Pulse Oximetry (%) 97 08/19/16 09:30 Constitutional: Yes: Well Nourished, No Distress, Calm Cardiovascular: Yes: Pulse Irregular. No: Tachycardia, Gallop, Murmur, Rub Respiratory: Yes: Regular, CTA Bilaterally. No: Rales, Rhonchi, Wheezes Gastrointestinal: Yes: Normal Bowel Sounds, Soft. No: Distention, Tenderness Extremities: Yes: WNL Edema: No Labs: CBC, BMP 08/19/16 06:00 08/19/16 06:00 INR, PTT INR 1.74 (0.82-1.09) H 08/16/16 06:00 Problem List - Problems (1) Anemia Code(s): D64.9 - ANEMIA, UNSPECIFIED Qualifiers: Anemia type: unspecified type Qualified Code(s): D64.9 - Anemia, unspecified (2) Multiple myeloma Code(s): C90.00 - MULTIPLE MYELOMA NOT HAVING ACHIEVED REMISSION Qualifiers: Multiple myeloma remission status: not in remission Qualified Code(s ): C90.00 - Multiple myeloma not having achieved remission (3) Atrial fibrillation Code(s): I48.91 - UNSPECIFIED ATRIAL FIBRILLATION Qualifiers: Atrial fibrillation type: chronic Qualified Code(s): I48.2 - Chronic atrial fibrillation (4) COPD (chronic obstructive pulmonary disease) Code(s): J44.9 - CHRONIC OBSTRUCTIVE PULMONARY DISEASE, UNSPECIFIED (5) Congestive heart failure Code(s): I50.9 - HEART FAILURE, UNSPECIFIED (6) Diabetes mellitus Code(s): E11.9 - TYPE 2 DIABETES MELLITUS WITHOUT COMPLICATIONS (7) Hyperlipidemia Code(s): E78.5 - HYPERLIPIDEMIA, UNSPECIFIED (8) CHEL (acute kidney injury) Code(s): N17.9 - ACUTE KIDNEY FAILURE, UNSPECIFIED (9) Hypercalcemia Code(s): E83.52 - HYPERCALCEMIA Assessment/Plan (1) Anemia Assessment/Plan: -suspect secondary to multiple myeloma -s/p transfusion -hematology following, may need another unit Code(s): D64.9 - ANEMIA, UNSPECIFIED Qualifiers: Anemia type: unspecified type Qualified Code(s): D64.9 - Anemia, unspecified (2) Multiple myeloma Assessment/Plan: -family says do not want aggressive therapy -hematology following -palliative care consulted Code(s): C90.00 - MULTIPLE MYELOMA NOT HAVING ACHIEVED REMISSION Qualifiers: Multiple myeloma remission status: not in remission Qualified Code(s ): C90.00 - Multiple myeloma not having achieved remission (3) Atrial fibrillation Assessment/Plan: -rate controlled -holding coumadin currently Code(s): I48.91 - UNSPECIFIED ATRIAL FIBRILLATION Qualifiers: Atrial fibrillation type: chronic Qualified Code(s): I48.2 - Chronic atrial fibrillation (4) COPD (chronic obstructive pulmonary disease) Assessment/Plan: -stable Code(s): J44.9 - CHRONIC OBSTRUCTIVE PULMONARY DISEASE, UNSPECIFIED (5) Congestive heart failure Assessment/Plan: -not in exacerbation -hold diuretics since with CHEL -cardiology following Code(s): I50.9 - HEART FAILURE, UNSPECIFIED (6) Diabetes mellitus Assessment/Plan: -continue home regimen -FSBS and SSI Code(s): E11.9 - TYPE 2 DIABETES MELLITUS WITHOUT COMPLICATIONS (7) Hyperlipidemia Assessment/Plan: -continue lipitor Code(s): E78.5 - HYPERLIPIDEMIA, UNSPECIFIED (8) CHEL (acute kidney injury) Assessment/Plan: -improving Code(s): N17.9 - ACUTE KIDNEY FAILURE, UNSPECIFIED (9) Hypercalcemia -suspect secondary to malignancy -will consult nephrology for possible palliative options
[2016-08-19 14:18] LABS: IGG IMMUNOGLOBULIN 6582 mg/dL (700-1600); IGM IMMUNOGLOBULIN <5 mg/dL (26-217)
--- NOTE | 2016-08-19 15:42 | PN ---
Progress Note, Physician Chief Complaint: sob History of Present Illness: son states she was not sob when stood up and took few steps today. she denies orthopnea no cp, palpitations - Current Medication List Current Medications: Active Medications Acetaminophen (Tylenol -) 650 mg PO Q4H PRN PRN Reason: FEVER OR PAIN Last Admin: 08/19/16 13:12 Dose: 650 mg Albuterol Sulfate (Ventolin 0.083% Nebulizer Soln -) 1 amp NEB Q6H PRN PRN Reason: SHORT OF BREATH/WHEEZING Last Admin: 08/19/16 10:55 Dose: 1 amp Atorvastatin Calcium (Lipitor -) 10 mg PO HS [facility] Last Admin: 08/18/16 22:11 Dose: 10 mg Cholecalciferol (Vitamin D3 -) 2,000 unit PO DAILY [facility] Last Admin: 08/19/16 09:34 Dose: 2,000 unit Cyanocobalamin (Vitamin B12 Injection -) 1,000 mcg IM DAILY [facility] Stop: 08/20/16 10:01 Last Admin: 08/19/16 09:35 Dose: 1,000 mcg Diltiazem HCl (Cardizem -) 60 mg PO BID [facility] Last Admin: 08/19/16 09:34 Dose: 60 mg Docusate Sodium (Colace -) 100 mg PO BID [facility] Last Admin: 08/19/16 09:34 Dose: 100 mg Guaifenesin (Robitussin -) 10 ml PO Q6H PRN PRN Reason: COUGH Last Admin: 08/19/16 09:35 Dose: 10 ml Sodium Chloride (Normal Saline -) 1,000 mls @ 75 mls/hr IV ASDIR [facility] Last Admin: 08/19/16 05:30 Dose: 75 mls/hr Insulin Aspart (Novolog Vial Sliding Scale -) 0 vial SQ BIDAC [facility] PRN Reason: Protocol Last Admin: 08/19/16 06:24 Dose: Not Given Ipratropium [place] (Atrovent 0.02% Nebulizer -) 1 amp NEB Q6H PRN PRN Reason: WHEEZING Last Admin: 08/19/16 10:55 Dose: 1 amp Metoprolol Succinate (Toprol Xl -) 25 mg PO DAILY [facility] Last Admin: 08/19/16 09:35 Dose: 25 mg Montelukast Sodium (Singulair -) 10 mg PO HS [facility] Last Admin: 08/18/16 22:12 Dose: 10 mg Ondansetron HCl (Zofran Injection) 4 mg IVPB Q6H PRN PRN Reason: NAUSEA Oxycodone HCl (Roxicodone -) 2.5 mg PO Q4H PRN PRN Reason: PAIN Polyethylene Glycol (Miralax (For Daily Use) -) 17 gm PO DAILY [facility] Last Admin: 08/19/16 09:35 Dose: 17 gm Potassium Chloride (K-Dur -) 10 meq PO BID [facility] Last Admin: 08/19/16 09:34 Dose: 10 meq Pregabalin (Lyrica -) 50 mg PO BID [facility] Last Admin: 08/19/16 09:35 Dose: 50 mg Propylthiouracil (Ptu -) 50 mg PO DAILY [facility] Last Admin: 08/19/16 09:35 Dose: 50 mg Ranitidine HCl (Zantac -) 150 mg PO BID [facility] Last Admin: 08/19/16 09:34 Dose: 150 mg - Objective Vital Signs: Vital Signs Temperature 98.0 F 08/19/16 14:36 Pulse Rate 98 H 08/19/16 14:36 Respiratory Rate 20 08/19/16 14:36 Blood Pressure 117/68 08/19/16 14:36 O2 Sat by Pulse Oximetry (%) 97 08/19/16 09:30 Constitutional: Yes: Well Nourished, No Distress, Calm Cardiovascular: Yes: Pulse Irregular, S1, S2. No: JVD, Gallop, Murmur Respiratory: Yes: Regular, CTA Bilaterally, Rales (R base (? atx)). No: Accessory Muscle Use, Wheezes Extremities: No: Cold Edema: No Neurological: Yes: Alert. No: Seizure Psychiatric: No: Agitated Labs: CBC, BMP 08/19/16 06:00 08/19/16 06:00 INR, PTT INR 1.74 (0.82-1.09) H 08/16/16 06:00 Assessment/Plan EKG: afib, 113 bpm CXR: diaphragmatic hernia obscuring lung torrez Echo 06/2015: afib, nl LV/RV, mild-mod MR/TR, hi LAP, mild ao root dil MIBI 2012: no ST changes, probable breast artifact vs. AW ischemia. Nl EF PFTs 2013: no obstr, mild restr, mild decr DLCO 86 yo with h/o afib, diastolic CHF, htn, hl, h/o rheumatic fever, mild-moderate MR, Dm, meningioma, new diagnosis of multiple myeloma, subclinical hyperthyroidism on PTU who presents with anemia Afib with RVR - well controlled at "lenient rate control" targest on home regimen: DILTIAZEM (60 AM, 60 LUNCH, 30 PM) AND LOW DOSE TOPROL (25). (has h/o bradycardia and hypotension of ? etiology--stable long time on reduced med regimen) - as outpatient on anticoagulation with coumadin. Discussed with hematology, anemia secondary to multiple myeloma and there's no contraindication to resuming AC, on it here. - will give coumadin 5mg tonight, clarify home regimen with office staff in AM sob, dCHF, copd - multifactorial chronic sob (copd, diast chf, and ? related to very large hiatal hernia) - current sob likely related to anemia and not volume overload. recent poor po intake and weight loss - received PRBCs here and getting IVF today for hypercalcemia. - home regimen = bumetanide 2mg daily - at dry weight on this, previously 155 lbs (06/06), down to 132 on 08/01 - bumetanide on hold here due to above findings - CXR reviewed: large hiatal hernia obscures most of L lung; diffuse prominent interstitital pattern can't exclude edema, ? similar to 11/05 when accounting for differences in technique - f/u BNP - suspect she will need maintenance diuretic--resume home bumex 2mg qd and monitor renal fxn trend mild-mod MR - functional, likely related to volume status - echo 06/2015 stable anemia/multiple myeloma? - hgb was 7.3, up to 9 post-PRBC, trending back down - ongoing mgm't per pmd/onc Emphysema SEEING AGATA; SOB IMPROVED WITH REGULAR MDI USE H/O WHEEZING IN PAST--STABLE OF LATE
--- NOTE | 2016-08-19 16:09 | PATH ---
Surgical Pathology Report Patient Name: ALBAN GOSS [facility]. Rec. #: [id number] /Age/Gender: 1930 (Age: 86) / F Account: [id number] Location: [facility]G Taken: 08/15/2016 Received: 08/15/2016 Reported: 08/19/2016 Physicians: Tommy Thomas M.D. Specimen(s) Received PERIPHERAL BLOOD 4 GREEN TOPS Clinical History r/o MDS Final Diagnosis FLOW CYTOMETRY PERFORMED AND INTERPRETED AT [place], [place] ([id number]) SHOWED THE FOLLOWING: INTERPRETATION: NO DEFINITIVE ATYPICAL FLOW CYTOMETRIC FINDINGS SEEN Phenotype: Lymphocytes include NK cells and immunophenotypically normal CD4+ and CD8+ T-cells in normal proportions. The cells exhibit an excess of surface lambda light chain expression, but cannot clearly monoclonal. Granulocyte and immunophenotypically mature. Cytomorphology: Smears from floor sampled show no increase in myeloblasts no atypical lymphocytes. MDS FISH STUDIES PERFORMED AND INTERPRETED AT [facility] [place], [place], [place] ([id number]) ARE FOLLOWS: INTERPRETATION: No evidence of deletion 5q or monosomy 5 is present. No evidence of deletion 7q or monosomy 7 is present. No evidence of trisomy8(+8) is present. No evidence of deletion 13q14 is present. No evidence of a rearrangement of 11q23. No evidence of a deletion of the p53 (17p13) locus. No evidence of deletion 20q12 is present. Comments: The study is negative for many of the most common recurrent genetic abnormalities in Myelodysplastic Syndrome. Correlation with pending cytogenetics ([id number]) is recommended. Electronically Signed Matt Horta M.D. Addendum Reported: 08/21/2016 Addendum Diagnosis CYTOGENETIC KARYOTYPE ANALYSIS PERFORMED AND INTERPRETED AT [facility], [place] ([id number]) SHOWED THE FOLLOWING: TEST RESULTS: Tissue Culture Failure. DIAGNOSTIC INTERPRETATION: This unstimulated peripheral blood specimen did not produce any analyzable metaphase cells and, therefore, chromosome analysis is not possible. A bone marrow aspirate, when clinically appropriate, is recommended. Matt Horta M.D. Gross Description Received are 4 green top tubes of peripheral blood which are sent to [facility]. DL/08/15/2016 saudi08/15/2016
[2016-08-19] MEDS ORDERED: BUMETANIDE 2 MG TABLET PO SCH (17:30)
[2016-08-19] MEDS ORDERED: WARFARIN NA 5 MG TABLET (UD) PO ONE (18:00)
[2016-08-19] MEDS: BUMETANIDE 1 MG TABLET PO SCH (18:09)
--- NOTE | 2016-08-19 18:16 | CONSULT ---
Consult Consult Specialty:: Nephrology Reason for Consultation:: hypercalcemia - History of Present Illness Chief Complaint: initially sent in for anemia History of Present Illness: Pt is an 86 year old female with pmhx of a-fib on coumadin, COPD, chol, HTN, CHF , DM and a meningioma who was sent in by her primary for anemia and possible blood transfusion. Pt is a poor historian and is confused. Her son is at bedside and he helped with history. I was called to evaluate pt for hypercalcemia. She is being worked up for myeloma. Pts son says that this is a new diagnosis. He also says that they most likely want to take her home on comfort care. She denies shortness of breath. - History Source History Provided By: Family Member, Medical Record - Past Medical History Cardio/Vascular: Yes: AFIB, HTN, Hyperlipdemia Pulmonary: Yes: COPD Renal/: Yes: UTI (recent Hx of ESBL UTI) ...: No Heme/Onc: Yes: Anemia Endocrine: Yes: Diabetes Mellitus - Past Surgical History Past Surgical History: Yes: Joint Replacement - Alcohol/Substance Use Hx Alcohol Use: No History of Substance Use: reports: None - Smoking History Smoking history: Never smoked Have you smoked in the past 12 months: No Aproximately how many cigarettes per day: 0 If you are a former smoker, when did you quit?: 1989 - Social History ADL: Support Services Occupation: Retired History of Recent Travel: No Home Medications - Allergies Allergies/Adverse Reactions: Allergies Allergy/AdvReac Type Severity Reaction Status Date / Time Iodinated Contrast Media - Allergy Verified 08/14/16 12:37 Oral and [IV Dye, Iodine Containing Contrast ] Sulfa (Sulfonamide Allergy Verified 08/14/16 12:37 Antibiotics) - Home Medications Home Medications: Ambulatory Orders Atorvastatin Ca [Lipitor] 20 mg PO HS 08/14/16 Bumetanide [Bumex -] 2 mg PO DAILY 08/14/16 Diltiazem [Cardizem -] 60 mg PO BID 08/14/16 Ergocalciferol (Vitamin D2) [Vitamin D2] 2,000 unit PO DAILY 08/14/16 Metformin HCl [Metformin HCl ER] 500 mg PO DAILY 08/14/16 Metoprolol Tartrate [Lopressor -] 25 mg PO DAILY 08/14/16 Montelukast Na [Singulair -] 10 mg PO HS 08/14/16 Oxycodone HCl/Acetaminophen [Oxycodone-Acetaminophen 5-325] 1 each PO DAILY PRN 08/14/16 Potassium Chloride [Klor-Con] 20 meq PO DAILY 08/14/16 Pregabalin [Lyrica -] 50 mg PO BID 08/14/16 Propylthiouracil 50 mg PO DAILY 08/14/16 Ranitidine [Zantac -] 150 mg PO BID 08/14/16 Family Disease History - Family Disease History Family Disease History: [place]: Father, Mother, Sister, Other: Son (2 healthy), Daughter (4 healthy) Review of Systems - Review of Systems Constitutional: reports: Malaise, Weakness Eyes: reports: No Symptoms HENT: reports: No Symptoms Neck: reports: No Symptoms Cardiovascular: reports: No Symptoms Respiratory: reports: No Symptoms Gastrointestinal: reports: No Symptoms Genitourinary: reports: No Symptoms Musculoskeletal: reports: Back Pain, Joint Pain Neurological: reports: Confusion Endocrine: reports: No Symptoms Hematology/Lymphatic: reports: No Symptoms Physical Exam Vital Signs: Vital Signs Temperature 98.0 F 08/19/16 14:36 Pulse Rate 98 H 08/19/16 14:36 Respiratory Rate 20 08/19/16 14:36 Blood Pressure 117/68 08/19/16 14:36 O2 Sat by Pulse Oximetry (%) 97 08/19/16 09:30 Constitutional: Yes: Calm Eyes: Yes: Conjunctiva Clear HENT: Yes: Atraumatic Cardiovascular: Yes: S1, S2 Respiratory: Yes: On Nasal O2 Gastrointestinal: Yes: Soft Renal/: Yes: WNL Musculoskeletal: Yes: Back Pain, Muscle Weakness Edema: LLE: Trace, RLE: Trace Neurological: Yes: Confusion Labs: CBC, BMP 08/19/16 06:00 08/19/16 06:00 Laboratory Tests 08/14/16 08/15/16 08/16/16 13:35 06:00 06:00 WBC Hgb 7.3 L D 9.2 L D Plt Count INR 1.81 H Sodium Potassium Chloride Carbon Dioxide Anion Gap BUN Creatinine Calcium Albumin 08/16/16 08/16/16 08/17/16 06:00 06:00 06:00 WBC Hgb 8.8 L Plt Count INR 1.74 H Sodium Potassium Chloride Carbon Dioxide Anion Gap BUN Creatinine Calcium 10.0 Albumin 2.7 L 08/18/16 08/18/16 08/18/16 06:00 06:00 13:35 WBC Hgb 8.5 L Plt Count INR Sodium 140 Potassium 4.3 Chloride 107 Carbon Dioxide 27 Anion Gap 6 L BUN 12 Creatinine 1.2 H Calcium 10.2 H 9.6 Albumin 08/19/16 08/19/16 08/19/16 06:00 06:00 06:00 WBC 7.4 Hgb 7.8 L Plt Count 169 INR Sodium Potassium Chloride Carbon Dioxide Anion Gap BUN 12 Creatinine 1.1 H Calcium 10.6 H Albumin 2.2 L Imaging - Results Chest X-ray: Report Reviewed Cat Scan: Report Reviewed Problem List - Problems (1) Anemia Code(s): D64.9 - ANEMIA, UNSPECIFIED Qualifiers: Anemia type: unspecified type Qualified Code(s): D64.9 - Anemia, unspecified (2) Confusion and disorientation Code(s): F99 - MENTAL DISORDER, NOT OTHERWISE SPECIFIED (3) Hypercalcemia Code(s): E83.52 - HYPERCALCEMIA (4) Atrial fibrillation Code(s): I48.91 - UNSPECIFIED ATRIAL FIBRILLATION Qualifiers: Atrial fibrillation type: chronic Qualified Code(s): I48.2 - Chronic atrial fibrillation (5) COPD (chronic obstructive pulmonary disease) Code(s): J44.9 - CHRONIC OBSTRUCTIVE PULMONARY DISEASE, UNSPECIFIED (6) Congestive heart failure Code(s): I50.9 - HEART FAILURE, UNSPECIFIED (7) Diabetes mellitus Code(s): E11.9 - TYPE 2 DIABETES MELLITUS WITHOUT COMPLICATIONS (8) Meningioma Code(s): D32.9 - BENIGN NEOPLASM OF MENINGES, UNSPECIFIED Assessment/Plan Current Medications Generic Name Dose Route Start Last Admin Trade Name Freq PRN Reason Stop Dose Admin Acetaminophen 650 mg 08/14/16 16:39 08/19/16 13:12 Tylenol - PO 650 mg Q4H PRN Administration FEVER OR PAIN Albuterol Sulfate 1 amp 08/14/16 16:39 08/19/16 10:55 Ventolin 0.083% Nebulizer Soln - NEB 1 amp Q6H PRN Administration SHORT OF BREATH/WHEEZING Atorvastatin Calcium 10 mg 08/14/16 22:00 08/18/16 22:11 Lipitor - PO 10 mg HS [facility] Administration Bumetanide 2 mg 08/19/16 17:30 08/19/16 18:09 Bumex - PO 2 mg DAILY [facility] Administration Cholecalciferol 2,000 unit 08/15/16 10:00 08/19/16 09:34 Vitamin D3 - PO 2,000 unit DAILY [facility] Administration Cyanocobalamin 1,000 mcg 08/16/16 10:00 08/19/16 09:35 Vitamin B12 Injection - IM 08/20/16 10:01 1,000 mcg DAILY [facility] Administration Diltiazem HCl 60 mg 08/14/16 22:00 08/19/16 09:34 Cardizem - PO 60 mg BID [facility] Administration Docusate Sodium 100 mg 08/14/16 22:00 08/19/16 09:34 Colace - PO 100 mg BID [facility] Administration Guaifenesin 10 ml 08/17/16 14:14 08/19/16 09:35 Robitussin - PO 10 ml Q6H PRN Administration COUGH Sodium Chloride 1,000 mls @ 75 mls/hr 08/18/16 13:30 08/19/16 17:08 Normal Saline - IV 75 mls/hr ASDIR [facility] Administration Insulin Aspart 0 vial 08/15/16 07:00 08/19/16 17:01 Novolog Vial Sliding Scale - SQ Not Given BIDAC [facility] Protocol Ipratropium [place] 1 amp 08/14/16 16:39 08/19/16 10:55 Atrovent 0.02% Nebulizer - NEB 1 amp Q6H PRN Administration WHEEZING Metoprolol Succinate 25 mg 08/15/16 10:00 08/19/16 09:35 Toprol Xl - PO 25 mg DAILY [facility] Administration Montelukast Sodium 10 mg 08/14/16 22:00 08/18/16 22:12 Singulair - PO 10 mg HS [facility] Administration Ondansetron HCl 4 mg 08/14/16 16:39 Zofran Injection IVPB Q6H PRN NAUSEA Oxycodone HCl 2.5 mg 08/18/16 12:55 Roxicodone - PO Q4H PRN PAIN Polyethylene Glycol 17 gm 08/15/16 10:00 08/19/16 09:35 Miralax (For Daily Use) - PO 17 gm DAILY [facility] Administration Potassium Chloride 10 meq 08/16/16 13:45 08/19/16 09:34 K-Dur - PO 10 meq BID [facility] Administration Pregabalin 50 mg 08/14/16 22:00 08/19/16 09:35 Lyrica - PO 50 mg BID [facility] Administration Propylthiouracil 50 mg 08/15/16 10:00 08/19/16 09:35 Ptu - PO 50 mg DAILY [facility] Administration Ranitidine HCl 150 mg 08/14/16 22:00 08/19/16 09:34 Zantac - PO 150 mg BID [facility] Administration Impression 1. hypercalcemia 2. CHF 3. hx meningioma 4. DM 5. HTN 6. r/o myeloma 7. anemia Plan - corrected calcium is about 12 - increase rate of fluids - cont with diuretics - repeat labs in am - family to decide about GOC - check ua and lytes - check pth level - will follow Dr Rolle
[2016-08-19] MEDS: ATORVASTATIN CA 10 MG TABLET (FP) PO SCH (21:55)
[2016-08-19] MEDS: MONTELUKAST NA 10 MG TABLET PO SCH (21:55)
[2016-08-20 00:07] LABS: A/G RATIO 0.5 (0.7-1.7); ALBUMIN 3.4 g/dL (2.9-4.4); ALPHA-1-GLOBULIN 0.4 g/dL (0.0-0.4); BETA GLOBULIN 0.9 g/dL (0.7-1.3); GLOBULIN, TOTAL 7.4 g/dL (2.2-3.9); M-SPIKE 4.8 g/dL (Not Observed); TOTAL PROTEIN 10.8 g/dL (6.0-8.5)
[2016-08-20] MEDS: INSULIN SLIDING SCALE (NOVOLOG) 1 VIAL SQ SCH ×2 (06:43→18:48)
[2016-08-20 07:47] LABS: MCH 29.4 pg (25.7-33.7); MCHC 32.7 g/dl (32.0-36.0); MEAN CELL VOLUME 89.9 fl (80-96); PLATELET COUNT 184 K/MM3 (134-434); RDW 18.3 % (11.6-15.6); WHITE BLOOD COUNT 7.2 K/mm3 (4.0-10.0)
[2016-08-20 08:12] LABS: INR 1.31 (0.82-1.09); PROTHROMBIN TIME (PATIENT) 14.5 SEC (9.98-11.88)
[2016-08-20 08:48] LABS: ALBUMIN 2.5 g/dl (3.4-5.0); MAGNESIUM 1.9 mg/dL (1.8-2.4)
[2016-08-20 09:07] LABS: METAMYELOCYTE 1 % (0-2)
[2016-08-20 09:08] LABS: PLATELET ESTIMATE ADEQUATE (NORMAL)
[2016-08-20 09:32] LABS: BILIRUBIN,TOTAL 0.6 mg/dL (0.2-1.0); COCKROFT - GAULT 40.681
[2016-08-20 09:34] LABS: TOT PROT 10.9 g/dl (6.4-8.2)
[2016-08-20] MEDS: PROPYLTHIOURACIL 50 MG TABLET (UD) PO SCH (10:00)
[2016-08-20] MEDS: PREGABALIN 50 MG CAPSULE PO SCH ×2 (12:19→22:02)
[2016-08-20] MEDS: METOPROLOL SUCCINATE 25 MG TAB.SR.24H (FP) PO SCH (12:19)
[2016-08-20] MEDS: POTASSIUM CHLORIDE TABS 10 MEQ TABLET.ER (FP) PO SCH ×2 (12:19→22:02)
[2016-08-20] MEDS: CHOLECALCIFEROL (VITAMIN D3) 1,000 UNIT TABLET (FP) PO SCH (12:19)
[2016-08-20] MEDS: RANITIDINE HCL 150 MG TABLET (FP) PO SCH ×2 (12:19→22:02)
[2016-08-20] MEDS: dilTIAZem HCL 60 MG TABLET (FP) PO SCH ×2 (12:19→22:02)
[2016-08-20] MEDS: DOCUSATE SODIUM 100 MG CAPSULE (FP) PO SCH ×2 (12:20→22:02)
[2016-08-20] MEDS: POLYETHYLENE GLYCOL 3350 119 GM BTL PO SCH (12:20)
[2016-08-20] MEDS: CYANOCOBALAMIN (VITAMIN B-12) 1000 MCG/1 ML VIAL IM SCH (12:21)
[2016-08-20] MEDS: BUMETANIDE 1 MG TABLET PO SCH (12:21)
--- NOTE | 2016-08-20 13:08 | PN ---
Progress Note, Physician History of Present Illness: Pt seen and examined at bedside. She is awake and appears comfortable. Family are at bedside. - Current Medication List Current Medications: Active Medications Acetaminophen (Tylenol -) 650 mg PO Q4H PRN PRN Reason: FEVER OR PAIN Last Admin: 08/19/16 13:12 Dose: 650 mg Albuterol Sulfate (Ventolin 0.083% Nebulizer Soln -) 1 amp NEB Q6H PRN PRN Reason: SHORT OF BREATH/WHEEZING Last Admin: 08/19/16 10:55 Dose: 1 amp Atorvastatin Calcium (Lipitor -) 10 mg PO HS [facility] Last Admin: 08/19/16 21:55 Dose: 10 mg Bumetanide (Bumex -) 2 mg PO DAILY [facility] Last Admin: 08/20/16 12:21 Dose: 2 mg Cholecalciferol (Vitamin D3 -) 2,000 unit PO DAILY [facility] Last Admin: 08/20/16 12:19 Dose: 2,000 unit Diltiazem HCl (Cardizem -) 60 mg PO BID [facility] Last Admin: 08/20/16 12:19 Dose: 60 mg Docusate Sodium (Colace -) 100 mg PO BID [facility] Last Admin: 08/20/16 12:20 Dose: 100 mg Guaifenesin (Robitussin -) 10 ml PO Q6H PRN PRN Reason: COUGH Last Admin: 08/19/16 09:35 Dose: 10 ml Sodium Chloride (Normal Saline -) 1,000 mls @ 100 mls/hr IV ASDIR [facility] Last Admin: 08/19/16 21:55 Dose: 100 mls/hr Insulin Aspart (Novolog Vial Sliding Scale -) 0 vial SQ BIDAC [facility] PRN Reason: Protocol Last Admin: 08/20/16 06:43 Dose: Not Given Ipratropium [place] (Atrovent 0.02% Nebulizer -) 1 amp NEB Q6H PRN PRN Reason: WHEEZING Last Admin: 08/19/16 10:55 Dose: 1 amp Metoprolol Succinate (Toprol Xl -) 25 mg PO DAILY [facility] Last Admin: 08/20/16 12:19 Dose: 25 mg Montelukast Sodium (Singulair -) 10 mg PO HS [facility] Last Admin: 08/19/16 21:55 Dose: 10 mg Ondansetron HCl (Zofran Injection) 4 mg IVPB Q6H PRN PRN Reason: NAUSEA Oxycodone HCl (Roxicodone -) 2.5 mg PO Q4H PRN PRN Reason: PAIN Polyethylene Glycol (Miralax (For Daily Use) -) 17 gm PO DAILY [facility] Last Admin: 08/20/16 12:20 Dose: Not Given Potassium Chloride (K-Dur -) 10 meq PO BID [facility] Last Admin: 08/20/16 12:19 Dose: 10 meq Pregabalin (Lyrica -) 50 mg PO BID [facility] Last Admin: 08/20/16 12:19 Dose: 50 mg Propylthiouracil (Ptu -) 50 mg PO DAILY [facility] Last Admin: 08/19/16 09:35 Dose: 50 mg Ranitidine HCl (Zantac -) 150 mg PO BID [facility] Last Admin: 08/20/16 12:19 Dose: 150 mg - Objective Vital Signs: Vital Signs Temperature 97.4 F L 08/20/16 06:00 Pulse Rate 96 H 08/20/16 06:00 Respiratory Rate 18 08/20/16 06:00 Blood Pressure 125/60 08/20/16 06:00 O2 Sat by Pulse Oximetry (%) 95 08/19/16 20:55 Constitutional: Yes: Calm Eyes: Yes: Conjunctiva Clear HENT: Yes: Atraumatic Neck: Yes: Supple Cardiovascular: Yes: S1, S2 Respiratory: Yes: On Nasal O2 Gastrointestinal: Yes: Soft Genitourinary: Yes: Incontinence Musculoskeletal: Yes: Muscle Weakness Edema: No Neurological: Yes: Confusion Labs: CBC, BMP 08/20/16 06:00 08/20/16 06:00 INR, PTT INR 1.31 (0.82-1.09) H 08/20/16 06:00 - ....Imaging Ultrasound: Report Reviewed (bilateral renal cysts and negative hydro) Problem List - Problems (1) Anemia Code(s): D64.9 - ANEMIA, UNSPECIFIED Qualifiers: Anemia type: unspecified type Qualified Code(s): D64.9 - Anemia, unspecified (2) Confusion and disorientation Code(s): F99 - MENTAL DISORDER, NOT OTHERWISE SPECIFIED (3) Hypercalcemia Code(s): E83.52 - HYPERCALCEMIA (4) Atrial fibrillation Code(s): I48.91 - UNSPECIFIED ATRIAL FIBRILLATION Qualifiers: Atrial fibrillation type: chronic Qualified Code(s): I48.2 - Chronic atrial fibrillation (5) COPD (chronic obstructive pulmonary disease) Code(s): J44.9 - CHRONIC OBSTRUCTIVE PULMONARY DISEASE, UNSPECIFIED (6) Congestive heart failure Code(s): I50.9 - HEART FAILURE, UNSPECIFIED (7) Diabetes mellitus Code(s): E11.9 - TYPE 2 DIABETES MELLITUS WITHOUT COMPLICATIONS (8) Meningioma Code(s): D32.9 - BENIGN NEOPLASM OF MENINGES, UNSPECIFIED Assessment/Plan Current Medications Generic Name Dose Route Start Last Admin Trade Name Freq PRN Reason Stop Dose Admin Acetaminophen 650 mg 08/14/16 16:39 08/19/16 13:12 Tylenol - PO 650 mg Q4H PRN Administration FEVER OR PAIN Albuterol Sulfate 1 amp 08/14/16 16:39 08/19/16 10:55 Ventolin 0.083% Nebulizer Soln - NEB 1 amp Q6H PRN Administration SHORT OF BREATH/WHEEZING Atorvastatin Calcium 10 mg 08/14/16 22:00 08/19/16 21:55 Lipitor - PO 10 mg HS [facility] Administration Bumetanide 2 mg 08/19/16 17:30 08/20/16 12:21 Bumex - PO 2 mg DAILY [facility] Administration Cholecalciferol 2,000 unit 08/15/16 10:00 08/20/16 12:19 Vitamin D3 - PO 2,000 unit DAILY [facility] Administration Diltiazem HCl 60 mg 08/14/16 22:00 08/20/16 12:19 Cardizem - PO 60 mg BID [facility] Administration Docusate Sodium 100 mg 08/14/16 22:00 08/20/16 12:20 Colace - PO 100 mg BID [facility] Administration Guaifenesin 10 ml 08/17/16 14:14 08/19/16 09:35 Robitussin - PO 10 ml Q6H PRN Administration COUGH Sodium Chloride 1,000 mls @ 100 mls/hr 08/19/16 18:22 08/19/16 21:55 Normal Saline - IV 100 mls/hr ASDIR [facility] Administration Insulin Aspart 0 vial 08/15/16 07:00 08/20/16 06:43 Novolog Vial Sliding Scale - SQ Not Given BIDAC [facility] Protocol Ipratropium [place] 1 amp 08/14/16 16:39 08/19/16 10:55 Atrovent 0.02% Nebulizer - NEB 1 amp Q6H PRN Administration WHEEZING Metoprolol Succinate 25 mg 08/15/16 10:00 08/20/16 12:19 Toprol Xl - PO 25 mg DAILY [facility] Administration Montelukast Sodium 10 mg 08/14/16 22:00 08/19/16 21:55 Singulair - PO 10 mg HS [facility] Administration Ondansetron HCl 4 mg 08/14/16 16:39 Zofran Injection IVPB Q6H PRN NAUSEA Oxycodone HCl 2.5 mg 08/18/16 12:55 Roxicodone - PO Q4H PRN PAIN Polyethylene Glycol 17 gm 08/15/16 10:00 08/20/16 12:20 Miralax (For Daily Use) - PO Not Given DAILY [facility] Potassium Chloride 10 meq 08/16/16 13:45 08/20/16 12:19 K-Dur - PO 10 meq BID [facility] Administration Pregabalin 50 mg 08/14/16 22:00 08/20/16 12:19 Lyrica - PO 50 mg BID [facility] Administration Propylthiouracil 50 mg 08/15/16 10:00 08/19/16 09:35 Ptu - PO 50 mg DAILY [facility] Administration Ranitidine HCl 150 mg 08/14/16 22:00 08/20/16 12:19 Zantac - PO 150 mg BID [facility] Administration Impression 1. hypercalcemia 2. CHF 3. hx meningioma 4. DM 5. HTN 6. r/o myeloma 7. anemia Plan - calcium is impriving - cont saline and diuretics - repeat labs in am - oncology follow up - family to decide about GOC - discussed plan with patient's son who is at bedside - check pth level - will follow Dr Rolle
[2016-08-20] MEDS: ACETAMINOPHEN 325 MG TABLET (FP) PO PRN (14:16)
[2016-08-20] MEDS ORDERED: ALBUTEROL SO4 2.5/IPRATROPIUM 0.5 INH SOL 3 ML VIAL.NEB. NEB ONE (15:57)
[2016-08-20] MEDS: ALBUTEROL SO4 0.083% IH SOL 2.5 MG/3 ML VIAL.NEB. NEB PRN ×2 (16:06→23:27)
[2016-08-20] MEDS: IPRATROPIUM BR 0.02% 0.5 MG/2.5 ML VIAL.NEB. NEB PRN ×2 (16:06→23:27)
--- NOTE | 2016-08-20 16:07 | PN ---
Progress Note, Physician Chief Complaint: Ms Sanchez says she is having some back pain today. Denies cp, sob, n/v. - Current Medication List Current Medications: Active Medications Acetaminophen (Tylenol -) 650 mg PO Q4H PRN PRN Reason: FEVER OR PAIN Last Admin: 08/20/16 14:16 Dose: 650 mg Albuterol Sulfate (Ventolin 0.083% Nebulizer Soln -) 1 amp NEB Q6H PRN PRN Reason: SHORT OF BREATH/WHEEZING Last Admin: 08/19/16 10:55 Dose: 1 amp Atorvastatin Calcium (Lipitor -) 10 mg PO HS [facility] Last Admin: 08/19/16 21:55 Dose: 10 mg Bumetanide (Bumex -) 2 mg PO DAILY [facility] Last Admin: 08/20/16 12:21 Dose: 2 mg Cholecalciferol (Vitamin D3 -) 2,000 unit PO DAILY [facility] Last Admin: 08/20/16 12:19 Dose: 2,000 unit Diltiazem HCl (Cardizem -) 60 mg PO BID [facility] Last Admin: 08/20/16 12:19 Dose: 60 mg Docusate Sodium (Colace -) 100 mg PO BID [facility] Last Admin: 08/20/16 12:20 Dose: 100 mg Guaifenesin (Robitussin -) 10 ml PO Q6H PRN PRN Reason: COUGH Last Admin: 08/19/16 09:35 Dose: 10 ml Sodium Chloride (Normal Saline -) 1,000 mls @ 100 mls/hr IV ASDIR [facility] Last Admin: 08/19/16 21:55 Dose: 100 mls/hr Insulin Aspart (Novolog Vial Sliding Scale -) 0 vial SQ BIDAC [facility] PRN Reason: Protocol Last Admin: 08/20/16 06:43 Dose: Not Given Ipratropium [place] (Atrovent 0.02% Nebulizer -) 1 amp NEB Q6H PRN PRN Reason: WHEEZING Last Admin: 08/19/16 10:55 Dose: 1 amp Metoprolol Succinate (Toprol Xl -) 25 mg PO DAILY [facility] Last Admin: 08/20/16 12:19 Dose: 25 mg Montelukast Sodium (Singulair -) 10 mg PO HS [facility] Last Admin: 08/19/16 21:55 Dose: 10 mg Ondansetron HCl (Zofran Injection) 4 mg IVPB Q6H PRN PRN Reason: NAUSEA Oxycodone HCl (Roxicodone -) 2.5 mg PO Q4H PRN PRN Reason: PAIN Polyethylene Glycol (Miralax (For Daily Use) -) 17 gm PO DAILY [facility] Last Admin: 08/20/16 12:20 Dose: Not Given Potassium Chloride (K-Dur -) 10 meq PO BID [facility] Last Admin: 08/20/16 12:19 Dose: 10 meq Pregabalin (Lyrica -) 50 mg PO BID [facility] Last Admin: 08/20/16 12:19 Dose: 50 mg Propylthiouracil (Ptu -) 50 mg PO DAILY [facility] Last Admin: 08/19/16 09:35 Dose: 50 mg Ranitidine HCl (Zantac -) 150 mg PO BID [facility] Last Admin: 08/20/16 12:19 Dose: 150 mg Warfarin Sodium (Coumadin -) 5 mg PO DAILY@1800 [facility] - Objective Vital Signs: Vital Signs Temperature 97.4 F L 08/20/16 15:23 Pulse Rate 106 H 08/20/16 15:23 Respiratory Rate 20 08/20/16 15:23 Blood Pressure 105/73 08/20/16 15:23 O2 Sat by Pulse Oximetry (%) 95 08/19/16 20:55 Constitutional: Yes: Well Nourished, No Distress, Calm Cardiovascular: Yes: Regular Rate and Rhythm. No: Gallop, Murmur, Rub Respiratory: Yes: Regular, CTA Bilaterally. No: Rales, Rhonchi, Wheezes Gastrointestinal: Yes: Normal Bowel Sounds, Soft. No: Distention, Tenderness Extremities: Yes: WNL Edema: No Labs: CBC, BMP 08/20/16 06:00 08/20/16 06:00 INR, PTT INR 1.31 (0.82-1.09) H 08/20/16 06:00 Problem List - Problems (1) Anemia Code(s): D64.9 - ANEMIA, UNSPECIFIED Qualifiers: Anemia type: unspecified type Qualified Code(s): D64.9 - Anemia, unspecified (2) Multiple myeloma Code(s): C90.00 - MULTIPLE MYELOMA NOT HAVING ACHIEVED REMISSION Qualifiers: Multiple myeloma remission status: not in remission Qualified Code(s ): C90.00 - Multiple myeloma not having achieved remission (3) Atrial fibrillation Code(s): I48.91 - UNSPECIFIED ATRIAL FIBRILLATION Qualifiers: Atrial fibrillation type: chronic Qualified Code(s): I48.2 - Chronic atrial fibrillation (4) COPD (chronic obstructive pulmonary disease) Code(s): J44.9 - CHRONIC OBSTRUCTIVE PULMONARY DISEASE, UNSPECIFIED (5) Congestive heart failure Code(s): I50.9 - HEART FAILURE, UNSPECIFIED (6) Diabetes mellitus Code(s): E11.9 - TYPE 2 DIABETES MELLITUS WITHOUT COMPLICATIONS (7) Hyperlipidemia Code(s): E78.5 - HYPERLIPIDEMIA, UNSPECIFIED (8) CHEL (acute kidney injury) Code(s): N17.9 - ACUTE KIDNEY FAILURE, UNSPECIFIED (9) Hypercalcemia Code(s): E83.52 - HYPERCALCEMIA Assessment/Plan (1) Anemia Assessment/Plan: -s/p transfusion -monitor, currently not requiring another unit Code(s): D64.9 - ANEMIA, UNSPECIFIED Qualifiers: Anemia type: unspecified type Qualified Code(s): D64.9 - Anemia, unspecified (2) Multiple myeloma Assessment/Plan: -family says do not want aggressive therapy -hematology following -palliative care consulted -reviewed radiology of spine and skull -considering amount of lesions, very poor prognosis -d/w about hospice care Code(s): C90.00 - MULTIPLE MYELOMA NOT HAVING ACHIEVED REMISSION Qualifiers: Multiple myeloma remission status: not in remission Qualified Code(s ): C90.00 - Multiple myeloma not having achieved remission (3) Atrial fibrillation Assessment/Plan: -rate controlled -hematology says safe to restart coumadin -normally at 2.5mg, but will continue 5mg -however considering prognosis it is worth considering stopping anticoagulation Code(s): I48.91 - UNSPECIFIED ATRIAL FIBRILLATION Qualifiers: Atrial fibrillation type: chronic Qualified Code(s): I48.2 - Chronic atrial fibrillation (4) COPD (chronic obstructive pulmonary disease) Assessment/Plan: -stable Code(s): J44.9 - CHRONIC OBSTRUCTIVE PULMONARY DISEASE, UNSPECIFIED (5) Congestive heart failure Assessment/Plan: -not in exacerbation -getting fluids and diuretics for hypercalcemia Code(s): I50.9 - HEART FAILURE, UNSPECIFIED (6) Diabetes mellitus Assessment/Plan: -continue home regimen -FSBS and SSI Code(s): E11.9 - TYPE 2 DIABETES MELLITUS WITHOUT COMPLICATIONS (7) Hyperlipidemia Assessment/Plan: -continue lipitor Code(s): E78.5 - HYPERLIPIDEMIA, UNSPECIFIED (8) CHEL (acute kidney injury) Assessment/Plan: -resolved Code(s): N17.9 - ACUTE KIDNEY FAILURE, UNSPECIFIED (9) Hypercalcemia -secondary to multiple myeloma -continue hydration and diuretics per nephrology -however this will be a chronic problem considering multiple myeloma Dispo -discussed with son about further goals of care -family originally stated desire to take patient home -discussed with son that [facility] might be a better option, particularly considering patient may develop significant pain in the future -he will discuss with family
[2016-08-20] MEDS: SODIUM CHLORIDE 1,000 ML IV SCH ×2 (18:49→22:07)
[2016-08-20] MEDS: WARFARIN NA 5 MG TABLET (UD) PO SCH (18:49)
[2016-08-20] MEDS: ATORVASTATIN CA 10 MG TABLET (FP) PO SCH (22:02)
[2016-08-20] MEDS: MONTELUKAST NA 10 MG TABLET PO SCH (22:02)
[2016-08-21 00:06] LABS: GAMMA GLOBULIN % 31.2 % (.)
[2016-08-21] MEDS: IPRATROPIUM BR 0.02% 0.5 MG/2.5 ML VIAL.NEB. NEB PRN ×2 (05:36→12:10)
[2016-08-21] MEDS: ALBUTEROL SO4 0.083% IH SOL 2.5 MG/3 ML VIAL.NEB. NEB PRN ×2 (05:37→12:10)
[2016-08-21] MEDS: ACETAMINOPHEN 325 MG TABLET (FP) PO PRN ×3 (06:23→21:38)
[2016-08-21] MEDS: INSULIN SLIDING SCALE (NOVOLOG) 1 VIAL SQ SCH ×2 (06:26→16:28)
[2016-08-21 07:31] LABS: MCH 28.9 pg (25.7-33.7); MCHC 32.5 g/dl (32.0-36.0); MEAN CELL VOLUME 89.1 fl (80-96); MEAN PLT VOLUME 8.7 fl (7.5-11.1); RDW 17.9 % (11.6-15.6); WHITE BLOOD COUNT 6.3 K/mm3 (4.0-10.0)
[2016-08-21 07:50] LABS: INR 1.36 (0.82-1.09); PROTHROMBIN TIME (PATIENT) 15.1 SEC (9.98-11.88)
[2016-08-21] MEDS: SODIUM CHLORIDE 1,000 ML IV SCH ×2 (08:28→19:01)
[2016-08-21] MEDS ORDERED: PT OWN MED DRAWER 7, Y5N ONE (09:04)
[2016-08-21 09:18] LABS: CALCIUM 9.3 mg/dL (8.5-10.1); COCKROFT - GAULT 38.454
[2016-08-21] MEDS: DOCUSATE SODIUM 100 MG CAPSULE (FP) PO SCH ×2 (09:23→21:39)
[2016-08-21] MEDS: CHOLECALCIFEROL (VITAMIN D3) 1,000 UNIT TABLET (FP) PO SCH (09:23)
[2016-08-21] MEDS: PROPYLTHIOURACIL 50 MG TABLET (UD) PO SCH (09:23)
[2016-08-21] MEDS: dilTIAZem HCL 60 MG TABLET (FP) PO SCH ×2 (09:23→21:39)
[2016-08-21] MEDS: METOPROLOL SUCCINATE 25 MG TAB.SR.24H (FP) PO SCH (09:23)
[2016-08-21] MEDS: POTASSIUM CHLORIDE TABS 10 MEQ TABLET.ER (FP) PO SCH ×2 (09:23→21:39)
[2016-08-21] MEDS: RANITIDINE HCL 150 MG TABLET (FP) PO SCH ×2 (09:23→21:39)
[2016-08-21] MEDS: PREGABALIN 50 MG CAPSULE PO SCH ×2 (09:23→21:39)
[2016-08-21 11:30] LABS: PLATELET COUNT 165 K/MM3 (134-434); PLATELET ESTIMATE ADEQUATE (NORMAL)
--- NOTE | 2016-08-21 12:59 | PN ---
Progress Note, Physician Chief Complaint: Ms Sanchez says she is without complaint, just received pain medications. No cp , sob, n/v. - Current Medication List Current Medications: Active Medications Acetaminophen (Tylenol -) 650 mg PO Q4H PRN PRN Reason: FEVER OR PAIN Last Admin: 08/21/16 06:23 Dose: 650 mg Albuterol Sulfate (Ventolin 0.083% Nebulizer Soln -) 1 amp NEB Q6H PRN PRN Reason: SHORT OF BREATH/WHEEZING Last Admin: 08/21/16 12:10 Dose: 1 amp Atorvastatin Calcium (Lipitor -) 10 mg PO HS [facility] Last Admin: 08/20/16 22:02 Dose: 10 mg Cholecalciferol (Vitamin D3 -) 2,000 unit PO DAILY [facility] Last Admin: 08/21/16 09:23 Dose: 2,000 unit Diltiazem HCl (Cardizem -) 60 mg PO BID [facility] Last Admin: 08/21/16 09:23 Dose: 60 mg Docusate Sodium (Colace -) 100 mg PO BID [facility] Last Admin: 08/21/16 09:23 Dose: 100 mg Guaifenesin (Robitussin -) 10 ml PO Q6H PRN PRN Reason: COUGH Last Admin: 08/19/16 09:35 Dose: 10 ml Sodium Chloride (Normal Saline -) 1,000 mls @ 100 mls/hr IV ASDIR [facility] Last Admin: 08/21/16 08:28 Dose: 100 mls/hr Insulin Aspart (Novolog Vial Sliding Scale -) 0 vial SQ BIDAC [facility] PRN Reason: Protocol Last Admin: 08/21/16 06:26 Dose: Not Given Ipratropium [place] (Atrovent 0.02% Nebulizer -) 1 amp NEB Q6H PRN PRN Reason: WHEEZING Last Admin: 08/21/16 12:10 Dose: 1 amp Metoprolol Succinate (Toprol Xl -) 25 mg PO DAILY [facility] Last Admin: 08/21/16 09:23 Dose: 25 mg Montelukast Sodium (Singulair -) 10 mg PO HS [facility] Last Admin: 08/20/16 22:02 Dose: 10 mg Ondansetron HCl (Zofran Injection) 4 mg IVPB Q6H PRN PRN Reason: NAUSEA Oxycodone HCl (Roxicodone -) 2.5 mg PO Q4H PRN PRN Reason: PAIN Polyethylene Glycol (Miralax (For Daily Use) -) 17 gm PO DAILY [facility] Last Admin: 08/20/16 12:20 Dose: Not Given Potassium Chloride (K-Dur -) 10 meq PO BID [facility] Last Admin: 08/21/16 09:23 Dose: 10 meq Pregabalin (Lyrica -) 50 mg PO BID [facility] Last Admin: 08/21/16 09:23 Dose: 50 mg Propylthiouracil (Ptu -) 50 mg PO DAILY [facility] Last Admin: 08/21/16 09:23 Dose: 50 mg Ranitidine HCl (Zantac -) 150 mg PO BID [facility] Last Admin: 08/21/16 09:23 Dose: 150 mg Warfarin Sodium (Coumadin -) 5 mg PO DAILY@1800 [facility] Last Admin: 08/20/16 18:49 Dose: 5 mg - Objective Vital Signs: Vital Signs Temperature 98 F 08/21/16 10:00 Pulse Rate 87 08/21/16 11:55 Respiratory Rate 20 08/21/16 10:00 Blood Pressure 116/74 08/21/16 10:00 O2 Sat by Pulse Oximetry (%) 97 08/21/16 11:55 Constitutional: Yes: Well Nourished, No Distress, Calm Cardiovascular: Yes: Pulse Irregular. No: Tachycardia, Gallop, Murmur, Rub Respiratory: Yes: Regular, CTA Bilaterally. No: Rales, Rhonchi, Wheezes Gastrointestinal: Yes: Normal Bowel Sounds, Soft. No: Distention, Tenderness Extremities: Yes: WNL Edema: No Labs: CBC, BMP 08/21/16 06:00 08/21/16 06:00 INR, PTT INR 1.36 (0.82-1.09) H 08/21/16 06:00 Problem List - Problems (1) Anemia Code(s): D64.9 - ANEMIA, UNSPECIFIED Qualifiers: Anemia type: unspecified type Qualified Code(s): D64.9 - Anemia, unspecified (2) Multiple myeloma Code(s): C90.00 - MULTIPLE MYELOMA NOT HAVING ACHIEVED REMISSION Qualifiers: Multiple myeloma remission status: not in remission Qualified Code(s ): C90.00 - Multiple myeloma not having achieved remission (3) Atrial fibrillation Code(s): I48.91 - UNSPECIFIED ATRIAL FIBRILLATION Qualifiers: Atrial fibrillation type: chronic Qualified Code(s): I48.2 - Chronic atrial fibrillation (4) COPD (chronic obstructive pulmonary disease) Code(s): J44.9 - CHRONIC OBSTRUCTIVE PULMONARY DISEASE, UNSPECIFIED (5) Congestive heart failure Code(s): I50.9 - HEART FAILURE, UNSPECIFIED (6) Diabetes mellitus Code(s): E11.9 - TYPE 2 DIABETES MELLITUS WITHOUT COMPLICATIONS (7) Hyperlipidemia Code(s): E78.5 - HYPERLIPIDEMIA, UNSPECIFIED (8) CHEL (acute kidney injury) Code(s): N17.9 - ACUTE KIDNEY FAILURE, UNSPECIFIED (9) Hypercalcemia Code(s): E83.52 - HYPERCALCEMIA Assessment/Plan (1) Anemia Assessment/Plan: -s/p transfusion -monitor, currently not requiring another unit Code(s): D64.9 - ANEMIA, UNSPECIFIED Qualifiers: Anemia type: unspecified type Qualified Code(s): D64.9 - Anemia, unspecified (2) Multiple myeloma Assessment/Plan: -family meeting today -discussed options of care -recommended against home with hospice as patient will require high amount of care -discussed [facility] vs [facility] -family discussing but leaning towards [facility] as can receive zometa Code(s): C90.00 - MULTIPLE MYELOMA NOT HAVING ACHIEVED REMISSION Qualifiers: Multiple myeloma remission status: not in remission Qualified Code(s ): C90.00 - Multiple myeloma not having achieved remission (3) Atrial fibrillation Assessment/Plan: -rate controlled -hematology says safe to restart coumadin -normally at 2.5mg, but will continue 5mg -however considering prognosis it is worth considering stopping anticoagulation Code(s): I48.91 - UNSPECIFIED ATRIAL FIBRILLATION Qualifiers: Atrial fibrillation type: chronic Qualified Code(s): I48.2 - Chronic atrial fibrillation (4) COPD (chronic obstructive pulmonary disease) Assessment/Plan: -stable Code(s): J44.9 - CHRONIC OBSTRUCTIVE PULMONARY DISEASE, UNSPECIFIED (5) Congestive heart failure Assessment/Plan: -not in exacerbation -getting fluids and diuretics for hypercalcemia Code(s): I50.9 - HEART FAILURE, UNSPECIFIED (6) Diabetes mellitus Assessment/Plan: -continue home regimen -FSBS and SSI Code(s): E11.9 - TYPE 2 DIABETES MELLITUS WITHOUT COMPLICATIONS (7) Hyperlipidemia Assessment/Plan: -continue lipitor Code(s): E78.5 - HYPERLIPIDEMIA, UNSPECIFIED (8) CHEL (acute kidney injury) Assessment/Plan: -resolved Code(s): N17.9 - ACUTE KIDNEY FAILURE, UNSPECIFIED (9) Hypercalcemia -case d/w oncology -to receive zometa today Dispo -family discussion as above 32 minutes spent in discussion with family about goals of care and prognosis
--- NOTE | 2016-08-21 14:03 | PN ---
Progress Note (short form) - Note Progress Note: Patient seen and examined Lethargic but follows commands appropriately Last Vital Signs Temp Pulse Resp BP Pulse Ox 98 F 87 20 116/74 97 08/21/16 10:00 08/21/16 11:55 08/21/16 10:00 08/21/16 10:00 08/21/16 11:55 Cor: RSR, No murmurs, No gallops Lungs: Clear to P&A Abd: Soft, Normal bowel sounds, No organomegaly Ext:No significant edema Skin: No rashes, Integument intact Abnormal Lab Results 08/21/16 08/21/16 08/21/16 06:00 06:00 06:00 RBC 2.72 L Hgb 7.9 L Hct 24.3 L RDW 17.9 H Basophils % 3.0 H INR 1.36 H Chloride 108 H Anion Gap 6 L Home Medication List Medication Instructions Recorded Confirmed Type Atorvastatin Ca [Lipitor] 20 mg PO HS 08/14/16 08/14/16 History Bumetanide [Bumex -] 2 mg PO DAILY 08/14/16 08/14/16 History Diltiazem [Cardizem -] 60 mg PO BID 08/14/16 08/14/16 History Ergocalciferol (Vitamin D2) 2,000 unit PO DAILY 08/14/16 08/14/16 History [Vitamin D2] Metformin HCl [Metformin HCl ER] 500 mg PO DAILY 08/14/16 08/14/16 History Metoprolol Tartrate [Lopressor -] 25 mg PO DAILY 08/14/16 08/14/16 History Montelukast Na [Singulair -] 10 mg PO HS 08/14/16 08/14/16 History Oxycodone HCl/Acetaminophen 1 each PO DAILY PRN 08/14/16 08/14/16 History [Oxycodone-Acetaminophen 5-325] Potassium Chloride [Klor-Con] 20 meq PO DAILY 08/14/16 08/14/16 History Pregabalin [Lyrica -] 50 mg PO BID 08/14/16 08/14/16 History Propylthiouracil 50 mg PO DAILY 08/14/16 08/14/16 History Ranitidine [Zantac -] 150 mg PO BID 08/14/16 08/14/16 History Active Medications Generic Name Dose Route Start Last Admin Trade Name Freq PRN Reason Stop Dose Admin Acetaminophen 650 mg 08/14/16 16:39 08/21/16 13:10 Tylenol - PO 650 mg Q4H PRN Administration FEVER OR PAIN Albuterol Sulfate 1 amp 08/14/16 16:39 08/21/16 12:10 Ventolin 0.083% Nebulizer Soln - NEB 1 amp Q6H PRN Administration SHORT OF BREATH/WHEEZING Atorvastatin Calcium 10 mg 08/14/16 22:00 08/20/16 22:02 Lipitor - PO 10 mg HS [facility] Administration Cholecalciferol 2,000 unit 08/15/16 10:00 08/21/16 09:23 Vitamin D3 - PO 2,000 unit DAILY [facility] Administration Diltiazem HCl 60 mg 08/14/16 22:00 08/21/16 09:23 Cardizem - PO 60 mg BID [facility] Administration Docusate Sodium 100 mg 08/14/16 22:00 08/21/16 09:23 Colace - PO 100 mg BID [facility] Administration Guaifenesin 10 ml 08/17/16 14:14 08/19/16 09:35 Robitussin - PO 10 ml Q6H PRN Administration COUGH Sodium Chloride 1,000 mls @ 100 mls/hr 08/19/16 18:22 08/21/16 08:28 Normal Saline - IV 100 mls/hr ASDIR [facility] Administration Insulin Aspart 0 vial 08/15/16 07:00 08/21/16 06:26 Novolog Vial Sliding Scale - SQ Not Given BIDAC [facility] Protocol Ipratropium [place] 1 amp 08/14/16 16:39 08/21/16 12:10 Atrovent 0.02% Nebulizer - NEB 1 amp Q6H PRN Administration WHEEZING Metoprolol Succinate 25 mg 08/15/16 10:00 08/21/16 09:23 Toprol Xl - PO 25 mg DAILY [facility] Administration Montelukast Sodium 10 mg 08/14/16 22:00 08/20/16 22:02 Singulair - PO 10 mg HS [facility] Administration Ondansetron HCl 4 mg 08/14/16 16:39 Zofran Injection IVPB Q6H PRN NAUSEA Oxycodone HCl 2.5 mg 08/18/16 12:55 Roxicodone - PO Q4H PRN PAIN Polyethylene Glycol 17 gm 08/15/16 10:00 08/20/16 12:20 Miralax (For Daily Use) - PO Not Given DAILY [facility] Potassium Chloride 10 meq 08/16/16 13:45 08/21/16 09:23 K-Dur - PO 10 meq BID [facility] Administration Pregabalin 50 mg 08/14/16 22:00 08/21/16 09:23 Lyrica - PO 50 mg BID [facility] Administration Propylthiouracil 50 mg 08/15/16 10:00 08/21/16 09:23 Ptu - PO 50 mg DAILY [facility] Administration Ranitidine HCl 150 mg 08/14/16 22:00 08/21/16 09:23 Zantac - PO 150 mg BID [facility] Administration Warfarin Sodium 5 mg 08/20/16 18:00 08/20/16 18:49 Coumadin - PO 5 mg DAILY@1800 [facility] Administration A/P 86 year old female with past medical history of hyperlipidemia, GERD, anemia, congestive heart failure, COPD, chronic bony pains, atrial fibrillation on Coumadin sent in by primary care physician for anemia. Patient WAS ADMITTED FOR EXERTIONAL SHORTNESS OF BREATH. Need to discuss with PMD about h/o myeloma ALbumin/globulin ratio. SFLCA and hypercalcemia, anemia seem to be s/o myeloma skeletal survey shows extensive lytic lesions Anemia--?? myeloma related Low B12--on vit. B12 Nl TSH/folic acid/iron studies/stool ocuult Hypercalcemia--on iv hydration will consider zometa discussed with sons in great detail, including steroids/ revlimid vs palliative care with zometa/transfusions vs hospice care they are yet to decide
[2016-08-21 14:15] LABS: CALCIUM 9.7 mg/dL (8.7-10.3)
--- NOTE | 2016-08-21 14:38 | PN ---
Progress Note, Physician History of Present Illness: Pt seen and examined at bedside. She is awake but confused. She appears comfortable. - Current Medication List Current Medications: Active Medications Acetaminophen (Tylenol -) 650 mg PO Q4H PRN PRN Reason: FEVER OR PAIN Last Admin: 08/21/16 13:10 Dose: 650 mg Albuterol Sulfate (Ventolin 0.083% Nebulizer Soln -) 1 amp NEB Q6H PRN PRN Reason: SHORT OF BREATH/WHEEZING Last Admin: 08/21/16 12:10 Dose: 1 amp Atorvastatin Calcium (Lipitor -) 10 mg PO HS [facility] Last Admin: 08/20/16 22:02 Dose: 10 mg Cholecalciferol (Vitamin D3 -) 2,000 unit PO DAILY [facility] Last Admin: 08/21/16 09:23 Dose: 2,000 unit Diltiazem HCl (Cardizem -) 60 mg PO BID [facility] Last Admin: 08/21/16 09:23 Dose: 60 mg Docusate Sodium (Colace -) 100 mg PO BID [facility] Last Admin: 08/21/16 09:23 Dose: 100 mg Guaifenesin (Robitussin -) 10 ml PO Q6H PRN PRN Reason: COUGH Last Admin: 08/19/16 09:35 Dose: 10 ml Sodium Chloride (Normal Saline -) 1,000 mls @ 100 mls/hr IV ASDIR [facility] Last Admin: 08/21/16 08:28 Dose: 100 mls/hr Insulin Aspart (Novolog Vial Sliding Scale -) 0 vial SQ BIDAC [facility] PRN Reason: Protocol Last Admin: 08/21/16 06:26 Dose: Not Given Ipratropium [place] (Atrovent 0.02% Nebulizer -) 1 amp NEB Q6H PRN PRN Reason: WHEEZING Last Admin: 08/21/16 12:10 Dose: 1 amp Metoprolol Succinate (Toprol Xl -) 25 mg PO DAILY [facility] Last Admin: 08/21/16 09:23 Dose: 25 mg Montelukast Sodium (Singulair -) 10 mg PO HS [facility] Last Admin: 08/20/16 22:02 Dose: 10 mg Ondansetron HCl (Zofran Injection) 4 mg IVPB Q6H PRN PRN Reason: NAUSEA Oxycodone HCl (Roxicodone -) 2.5 mg PO Q4H PRN PRN Reason: PAIN Polyethylene Glycol (Miralax (For Daily Use) -) 17 gm PO DAILY [facility] Last Admin: 08/20/16 12:20 Dose: Not Given Potassium Chloride (K-Dur -) 10 meq PO BID [facility] Last Admin: 08/21/16 09:23 Dose: 10 meq Pregabalin (Lyrica -) 50 mg PO BID [facility] Last Admin: 08/21/16 09:23 Dose: 50 mg Propylthiouracil (Ptu -) 50 mg PO DAILY [facility] Last Admin: 08/21/16 09:23 Dose: 50 mg Ranitidine HCl (Zantac -) 150 mg PO BID [facility] Last Admin: 08/21/16 09:23 Dose: 150 mg Warfarin Sodium (Coumadin -) 5 mg PO DAILY@1800 [facility] Last Admin: 08/20/16 18:49 Dose: 5 mg - Objective Vital Signs: Vital Signs Temperature 98 F 08/21/16 10:00 Pulse Rate 87 08/21/16 11:55 Respiratory Rate 20 08/21/16 10:00 Blood Pressure 116/74 08/21/16 10:00 O2 Sat by Pulse Oximetry (%) 97 08/21/16 11:55 Constitutional: Yes: Calm Eyes: Yes: Conjunctiva Clear HENT: Yes: Atraumatic Neck: Yes: Supple Cardiovascular: Yes: S1, S2 Respiratory: Yes: On Nasal O2 Gastrointestinal: Yes: Soft Genitourinary: Yes: Incontinence Musculoskeletal: Yes: Muscle Weakness Edema: No Neurological: Yes: Confusion Labs: CBC, BMP 08/21/16 06:00 08/21/16 06:00 INR, PTT INR 1.36 (0.82-1.09) H 08/21/16 06:00 Problem List - Problems (1) Anemia Code(s): D64.9 - ANEMIA, UNSPECIFIED Qualifiers: Anemia type: unspecified type Qualified Code(s): D64.9 - Anemia, unspecified (2) Confusion and disorientation Code(s): F99 - MENTAL DISORDER, NOT OTHERWISE SPECIFIED (3) Hypercalcemia Code(s): E83.52 - HYPERCALCEMIA (4) Atrial fibrillation Code(s): I48.91 - UNSPECIFIED ATRIAL FIBRILLATION Qualifiers: Atrial fibrillation type: chronic Qualified Code(s): I48.2 - Chronic atrial fibrillation (5) COPD (chronic obstructive pulmonary disease) Code(s): J44.9 - CHRONIC OBSTRUCTIVE PULMONARY DISEASE, UNSPECIFIED (6) Congestive heart failure Code(s): I50.9 - HEART FAILURE, UNSPECIFIED (7) Diabetes mellitus Code(s): E11.9 - TYPE 2 DIABETES MELLITUS WITHOUT COMPLICATIONS (8) Meningioma Code(s): D32.9 - BENIGN NEOPLASM OF MENINGES, UNSPECIFIED Assessment/Plan Current Medications Generic Name Dose Route Start Last Admin Trade Name Freq PRN Reason Stop Dose Admin Acetaminophen 650 mg 08/14/16 16:39 08/21/16 13:10 Tylenol - PO 650 mg Q4H PRN Administration FEVER OR PAIN Albuterol Sulfate 1 amp 08/14/16 16:39 08/21/16 12:10 Ventolin 0.083% Nebulizer Soln - NEB 1 amp Q6H PRN Administration SHORT OF BREATH/WHEEZING Atorvastatin Calcium 10 mg 08/14/16 22:00 08/20/16 22:02 Lipitor - PO 10 mg HS [facility] Administration Cholecalciferol 2,000 unit 08/15/16 10:00 08/21/16 09:23 Vitamin D3 - PO 2,000 unit DAILY [facility] Administration Diltiazem HCl 60 mg 08/14/16 22:00 08/21/16 09:23 Cardizem - PO 60 mg BID [facility] Administration Docusate Sodium 100 mg 08/14/16 22:00 08/21/16 09:23 Colace - PO 100 mg BID [facility] Administration Guaifenesin 10 ml 08/17/16 14:14 08/19/16 09:35 Robitussin - PO 10 ml Q6H PRN Administration COUGH Sodium Chloride 1,000 mls @ 100 mls/hr 08/19/16 18:22 08/21/16 08:28 Normal Saline - IV 100 mls/hr ASDIR [facility] Administration Insulin Aspart 0 vial 08/15/16 07:00 08/21/16 06:26 Novolog Vial Sliding Scale - SQ Not Given BIDAC [facility] Protocol Ipratropium [place] 1 amp 08/14/16 16:39 08/21/16 12:10 Atrovent 0.02% Nebulizer - NEB 1 amp Q6H PRN Administration WHEEZING Metoprolol Succinate 25 mg 08/15/16 10:00 08/21/16 09:23 Toprol Xl - PO 25 mg DAILY [facility] Administration Montelukast Sodium 10 mg 08/14/16 22:00 08/20/16 22:02 Singulair - PO 10 mg HS [facility] Administration Ondansetron HCl 4 mg 08/14/16 16:39 Zofran Injection IVPB Q6H PRN NAUSEA Oxycodone HCl 2.5 mg 08/18/16 12:55 Roxicodone - PO Q4H PRN PAIN Polyethylene Glycol 17 gm 08/15/16 10:00 08/20/16 12:20 Miralax (For Daily Use) - PO Not Given DAILY [facility] Potassium Chloride 10 meq 08/16/16 13:45 08/21/16 09:23 K-Dur - PO 10 meq BID [facility] Administration Pregabalin 50 mg 08/14/16 22:00 08/21/16 09:23 Lyrica - PO 50 mg BID [facility] Administration Propylthiouracil 50 mg 08/15/16 10:00 08/21/16 09:23 Ptu - PO 50 mg DAILY [facility] Administration Ranitidine HCl 150 mg 08/14/16 22:00 08/21/16 09:23 Zantac - PO 150 mg BID [facility] Administration Warfarin Sodium 5 mg 08/20/16 18:00 08/20/16 18:49 Coumadin - PO 5 mg DAILY@1800 [facility] Administration Impression 1. hypercalcemia 2. CHF 3. hx meningioma 4. DM 5. HTN 6. r/o myeloma 7. anemia Plan - calcium level continues to improve - cont with fluids and diuretics - family meeting today to discuss GOC - oncology follow up - follow up PTH level - will follow Dr Rolle
[2016-08-21] MEDS: POLYETHYLENE GLYCOL 3350 119 GM BTL PO SCH (16:28)
[2016-08-21] MEDS: WARFARIN NA 5 MG TABLET (UD) PO SCH (17:48)
[2016-08-21] MEDS: BUMETANIDE 1 MG TABLET PO SCH (17:48)
[2016-08-21 21:07] LABS: URINE APPEARANCE SLCLOUDY; URINE BILIRUBIN NEGATIVE (NEGATIVE); URINE COLOR STRAW; URINE GLUCOSE (UA) NEGATIVE (NEGATIVE); URINE KETONE NEGATIVE (NEGATIVE); URINE NITRITE NEGATIVE (NEGATIVE); URINE PROTEIN NEGATIVE (NEGATIVE); URINE UROBILINOGEN NEGATIVE E.U./dl (0.2-1.0)
[2016-08-21 21:18] LABS: URINE BLOOD 1+ (NEGATIVE); URINE LEUK ESTERASE 2+ (NEGATIVE)
[2016-08-21 21:21] LABS: URINE BACTERIA MODERATE /hpf (NONE SEEN); URINE MUCUS RARE; URINE RBC 6 /hpf (0-3); URINE WBC 17 /hpf (3-5); YEAST MODERATE
[2016-08-21] MEDS: MONTELUKAST NA 10 MG TABLET PO SCH (21:39)
[2016-08-21] MEDS: ATORVASTATIN CA 10 MG TABLET (FP) PO SCH (21:39)
[2016-08-21 22:28] LABS: URINE CREATININE < 13.0 mg/dL (20-320)
--- NOTE | 2016-08-21 23:29 | PN ---
Progress Note (short form) - Note Progress Note: Chief Complaint: sob History of Present Illness: sob stable, ambulated today. she denies orthopnea no cp, palpitations, dizziness. Current Medications Acetaminophen (Tylenol -) 650 mg PO Q4H PRN PRN Reason: FEVER OR PAIN Last Admin: 08/21/16 21:38 Dose: 650 mg Albuterol Sulfate (Ventolin 0.083% Nebulizer Soln -) 1 amp NEB Q6H PRN PRN Reason: SHORT OF BREATH/WHEEZING Last Admin: 08/21/16 12:10 Dose: 1 amp Atorvastatin Calcium (Lipitor -) 10 mg PO HS [facility] Last Admin: 08/21/16 21:39 Dose: 10 mg Bumetanide (Bumex -) 2 mg PO DAILY [facility] Last Admin: 08/21/16 17:48 Dose: 2 mg Cholecalciferol (Vitamin D3 -) 2,000 unit PO DAILY [facility] Last Admin: 08/21/16 09:23 Dose: 2,000 unit Diltiazem HCl (Cardizem -) 60 mg PO BID [facility] Last Admin: 08/21/16 21:39 Dose: 60 mg Docusate Sodium (Colace -) 100 mg PO BID [facility] Last Admin: 08/21/16 21:39 Dose: 100 mg Guaifenesin (Robitussin -) 10 ml PO Q6H PRN PRN Reason: COUGH Last Admin: 08/19/16 09:35 Dose: 10 ml Sodium Chloride (Normal Saline -) 1,000 mls @ 100 mls/hr IV ASDIR [facility] Last Admin: 08/21/16 19:01 Dose: 100 mls/hr Insulin Aspart (Novolog Vial Sliding Scale -) 0 vial SQ BIDAC [facility] PRN Reason: Protocol Last Admin: 08/21/16 16:28 Dose: Not Given Ipratropium [place] (Atrovent 0.02% Nebulizer -) 1 amp NEB Q6H PRN PRN Reason: WHEEZING Last Admin: 08/21/16 12:10 Dose: 1 amp Metoprolol Succinate (Toprol Xl -) 25 mg PO DAILY [facility] Last Admin: 08/21/16 09:23 Dose: 25 mg Montelukast Sodium (Singulair -) 10 mg PO HS [facility] Last Admin: 08/21/16 21:39 Dose: 10 mg Ondansetron HCl (Zofran Injection) 4 mg IVPB Q6H PRN PRN Reason: NAUSEA Oxycodone HCl (Roxicodone -) 2.5 mg PO Q4H PRN PRN Reason: PAIN Polyethylene Glycol (Miralax (For Daily Use) -) 17 gm PO DAILY [facility] Last Admin: 08/21/16 16:28 Dose: Not Given Potassium Chloride (K-Dur -) 10 meq PO BID [facility] Last Admin: 08/21/16 21:39 Dose: 10 meq Pregabalin (Lyrica -) 50 mg PO BID [facility] Last Admin: 08/21/16 21:39 Dose: 50 mg Propylthiouracil (Ptu -) 50 mg PO DAILY [facility] Last Admin: 08/21/16 09:23 Dose: 50 mg Ranitidine HCl (Zantac -) 150 mg PO BID [facility] Last Admin: 08/21/16 21:39 Dose: 150 mg Warfarin Sodium (Coumadin -) 5 mg PO DAILY@1800 [facility] Last Admin: 08/21/16 17:48 Dose: 5 mg Vital Signs - 24 hr 08/21/16 08/21/16 08/21/16 02:00 06:00 09:00 Temperature 97.4 F L 97.5 F L Pulse Rate 87 87 Respiratory 20 20 20 Rate Blood Pressure 99/59 123/77 O2 Sat by Pulse Oximetry (%) 08/21/16 08/21/16 08/21/16 10:00 11:55 14:41 Temperature 98 F 98.2 F Pulse Rate 94 H 87 110 H Respiratory 20 20 Rate Blood Pressure 116/74 119/84 O2 Sat by Pulse 97 Oximetry (%) 08/21/16 08/21/16 08/21/16 18:25 21:00 22:00 Temperature 98.3 F 98.2 F Pulse Rate 95 H 101 H Respiratory 20 20 20 Rate Blood Pressure 129/83 118/66 O2 Sat by Pulse 98 Oximetry (%) Intake & Output 08/19/16 08/20/16 08/21/16 08/22/16 07:59 07:59 07:59 07:59 Intake Total 1586 2024 574 2274 Output Total 200 200 Balance 1582024 374 2074 Weight 138 lb 1.6 oz Constitutional: Yes: Well Nourished, No Distress, Calm Cardiovascular: Yes: Pulse Irregular, S1, S2. No: JVD, Gallop, Murmur Respiratory: Yes: Regular, Rales (R base (? atx)). No: Accessory Muscle Use, Wheezes Extremities: No: Cold Edema: No Neurological: Yes: Alert. No: Seizure Psychiatric: No: Agitated Labs: CBC, BMP 08/21/16 06:00 08/21/16 06:00 Laboratory Tests 08/21/16 06:00 INR 1.36 H Assessment/Plan EKG: afib, 113 bpm CXR: diaphragmatic hernia obscuring lung torrez Echo 06/2015: afib, nl LV/RV, mild-mod MR/TR, hi LAP, mild ao root dil MIBI 2012: no ST changes, probable breast artifact vs. AW ischemia. Nl EF PFTs 2013: no obstr, mild restr, mild decr DLCO 86 yo with h/o afib, diastolic CHF, htn, hl, h/o rheumatic fever, mild-moderate MR, Dm, meningioma, new diagnosis of multiple myeloma, subclinical hyperthyroidism on PTU who presents with anemia Afib with RVR - well controlled at "lenient rate control" targest on home regimen: DILTIAZEM (60 AM, 60 LUNCH, 30 PM) AND LOW DOSE TOPROL (25). (has h/o bradycardia and hypotension of ? etiology--stable long time on reduced med regimen) - currently holding toprol, will add back if needed. - as outpatient on anticoagulation with coumadin. Discussed with hematology, anemia secondary to multiple myeloma and there's no contraindication to resuming AC, on it here. - coumadin dosing per INR. (appears to be 2 mg daily based on office chart) sob, dCHF, copd - multifactorial chronic sob (copd, diast chf, and ? related to very large hiatal hernia) - sob likely related to anemia and not volume overload. recent poor po intake and weight loss - received PRBCs here x 1 and getting IVF here for hypercalcemia. - at dry weight on this, previously 155 lbs (06/06), down to 132 on 08/01 - CXR reviewed: large hiatal hernia obscures most of L lung; diffuse prominent interstitital pattern can't exclude edema, ? similar to 11/05 when accounting for differences in technique - home regimen = bumetanide 2mg daily. bumex initially held while receiving transfusion and hypocalcemic. Resumed 08/19 (bnp also up from admit at that time ). bumex ok per renal, (will aid with excretion of calcium) monitor renal fxn and calcium. mild-mod MR - functional, likely related to volume status - echo 06/2015 stable anemia/multiple myeloma? - hgb was 7.3, up to 9 post-PRBC, trending back down - ongoing mgm't per pmd/onc hypercalcemia/multiple myeloma - on ivf and continuing bumex per renal Emphysema SEEING AGATA; SOB IMPROVED WITH REGULAR MDI USE H/O WHEEZING IN PAST--STABLE OF LATE
[2016-08-22] MEDS: SODIUM CHLORIDE 1,000 ML IV SCH ×2 (05:44→16:29)
[2016-08-22] MEDS ORDERED: POTASSIUM CHLORIDE TABS 20 MEQ TABLET.ER (FP) PO ONE (06:00)
[2016-08-22] MEDS: INSULIN SLIDING SCALE (NOVOLOG) 1 VIAL SQ SCH ×2 (07:09→17:33)
[2016-08-22 07:42] LABS: BASOPHIL 0.7 % (0-2.0); EOSINOPHIL 3.2 % (0-4.5); MCH 29.4 pg (25.7-33.7); MCHC 33.1 g/dl (32.0-36.0); MEAN CELL VOLUME 88.8 fl (80-96); MEAN PLT VOLUME 8.7 fl (7.5-11.1); NEUTROPHILS 58.4 % (42.8-82.8); PLATELET COUNT 189 K/MM3 (134-434); RDW 18.4 % (11.6-15.6); WHITE BLOOD COUNT 6.2 K/mm3 (4.0-10.0)
[2016-08-22 08:04] LABS: INR 1.5 (0.82-1.09); PROTHROMBIN TIME (PATIENT) 16.6 SEC (9.98-11.88)
[2016-08-22 08:41] LABS: CALCIUM 9.8 mg/dL (8.5-10.1); COCKROFT - GAULT 34.8755; CREATININE 1.1 mg/dL (0.55-1.02)
[2016-08-22 08:44] LABS: ALBUMIN 2.4 g/dl (3.4-5.0); BILIRUBIN,DIRECT 0.2 mg/dL (0.0-0.2); BILIRUBIN,TOTAL 0.5 mg/dL (0.2-1.0)
[2016-08-22] MEDS: oxyCODONE HCL 5 MG TABLET PO PRN (10:55)
[2016-08-22] MEDS: dilTIAZem HCL 60 MG TABLET (FP) PO SCH ×2 (11:00→23:12)
[2016-08-22] MEDS: CHOLECALCIFEROL (VITAMIN D3) 1,000 UNIT TABLET (FP) PO SCH (11:00)
[2016-08-22] MEDS: METOPROLOL SUCCINATE 25 MG TAB.SR.24H (FP) PO SCH (11:01)
[2016-08-22] MEDS: POTASSIUM CHLORIDE TABS 10 MEQ TABLET.ER (FP) PO SCH ×2 (11:01→23:12)
[2016-08-22] MEDS: PREGABALIN 50 MG CAPSULE PO SCH ×2 (11:01→23:12)
[2016-08-22] MEDS: BUMETANIDE 1 MG TABLET PO SCH (11:01)
[2016-08-22] MEDS: DOCUSATE SODIUM 100 MG CAPSULE (FP) PO SCH ×2 (11:01→23:12)
[2016-08-22] MEDS: RANITIDINE HCL 150 MG TABLET (FP) PO SCH ×2 (11:01→23:12)
[2016-08-22] MEDS: PROPYLTHIOURACIL 50 MG TABLET (UD) PO SCH (11:01)
[2016-08-22] MEDS: POLYETHYLENE GLYCOL 3350 119 GM BTL PO SCH (11:01)
[2016-08-22] MEDS: ALBUTEROL SO4 0.083% IH SOL 2.5 MG/3 ML VIAL.NEB. NEB PRN ×2 (11:14→23:24)
[2016-08-22] MEDS: IPRATROPIUM BR 0.02% 0.5 MG/2.5 ML VIAL.NEB. NEB PRN ×2 (11:14→23:24)
--- NOTE | 2016-08-22 15:56 | PN ---
Progress Note, Physician Chief Complaint: Ms Sanchez says she is feeling better today, was able to walk. No cp, sob, n/v. - Current Medication List Current Medications: Active Medications Acetaminophen (Tylenol -) 650 mg PO Q4H PRN PRN Reason: FEVER OR PAIN Last Admin: 08/21/16 21:38 Dose: 650 mg Albuterol Sulfate (Ventolin 0.083% Nebulizer Soln -) 1 amp NEB Q6H PRN PRN Reason: SHORT OF BREATH/WHEEZING Last Admin: 08/22/16 11:14 Dose: 1 amp Atorvastatin Calcium (Lipitor -) 10 mg PO HS [facility] Last Admin: 08/21/16 21:39 Dose: 10 mg Bumetanide (Bumex -) 2 mg PO DAILY [facility] Last Admin: 08/22/16 11:01 Dose: 2 mg Cholecalciferol (Vitamin D3 -) 2,000 unit PO DAILY [facility] Last Admin: 08/22/16 11:00 Dose: 2,000 unit Diltiazem HCl (Cardizem -) 60 mg PO BID [facility] Last Admin: 08/22/16 11:00 Dose: 60 mg Docusate Sodium (Colace -) 100 mg PO BID [facility] Last Admin: 08/22/16 11:01 Dose: 100 mg Guaifenesin (Robitussin -) 10 ml PO Q6H PRN PRN Reason: COUGH Last Admin: 08/19/16 09:35 Dose: 10 ml Sodium Chloride (Normal Saline -) 1,000 mls @ 100 mls/hr IV ASDIR [facility] Last Admin: 08/22/16 05:44 Dose: 100 mls/hr Insulin Aspart (Novolog Vial Sliding Scale -) 0 vial SQ BIDAC [facility] PRN Reason: Protocol Last Admin: 08/22/16 07:09 Dose: Not Given Ipratropium [place] (Atrovent 0.02% Nebulizer -) 1 amp NEB Q6H PRN PRN Reason: WHEEZING Last Admin: 08/22/16 11:14 Dose: 1 amp Metoprolol Succinate (Toprol Xl -) 25 mg PO DAILY [facility] Last Admin: 08/22/16 11:01 Dose: 25 mg Montelukast Sodium (Singulair -) 10 mg PO HS [facility] Last Admin: 08/21/16 21:39 Dose: 10 mg Ondansetron HCl (Zofran Injection) 4 mg IVPB Q6H PRN PRN Reason: NAUSEA Oxycodone HCl (Roxicodone -) 2.5 mg PO Q4H PRN PRN Reason: PAIN Last Admin: 08/22/16 10:55 Dose: 2.5 mg Polyethylene Glycol (Miralax (For Daily Use) -) 17 gm PO DAILY [facility] Last Admin: 08/22/16 11:01 Dose: 17 gm Potassium Chloride (K-Dur -) 10 meq PO BID [facility] Last Admin: 08/22/16 11:01 Dose: 10 meq Pregabalin (Lyrica -) 50 mg PO BID [facility] Last Admin: 08/22/16 11:01 Dose: 50 mg Propylthiouracil (Ptu -) 50 mg PO DAILY [facility] Last Admin: 08/22/16 11:01 Dose: 50 mg Ranitidine HCl (Zantac -) 150 mg PO BID [facility] Last Admin: 08/22/16 11:01 Dose: 150 mg Warfarin Sodium (Coumadin -) 5 mg PO DAILY@1800 [facility] Last Admin: 08/21/16 17:48 Dose: 5 mg - Objective Vital Signs: Vital Signs Temperature 97.7 F 08/22/16 14:36 Pulse Rate 95 H 08/22/16 14:36 Respiratory Rate 18 08/22/16 14:36 Blood Pressure 120/83 08/22/16 14:36 O2 Sat by Pulse Oximetry (%) 94 L 08/22/16 11:14 Constitutional: Yes: Well Nourished, No Distress, Calm Cardiovascular: Yes: Regular Rate and Rhythm. No: Gallop, Murmur, Rub Respiratory: Yes: Regular, CTA Bilaterally. No: Rales, Rhonchi, Wheezes Gastrointestinal: Yes: Normal Bowel Sounds, Soft. No: Distention, Tenderness Extremities: Yes: WNL Edema: No Labs: CBC, BMP 08/22/16 06:05 08/22/16 06:05 INR, PTT INR 1.50 (0.82-1.09) H 08/22/16 06:05 Problem List - Problems (1) Anemia Code(s): D64.9 - ANEMIA, UNSPECIFIED Qualifiers: Anemia type: unspecified type Qualified Code(s): D64.9 - Anemia, unspecified (2) Multiple myeloma Code(s): C90.00 - MULTIPLE MYELOMA NOT HAVING ACHIEVED REMISSION Qualifiers: Multiple myeloma remission status: not in remission Qualified Code(s ): C90.00 - Multiple myeloma not having achieved remission (3) Atrial fibrillation Code(s): I48.91 - UNSPECIFIED ATRIAL FIBRILLATION Qualifiers: Atrial fibrillation type: chronic Qualified Code(s): I48.2 - Chronic atrial fibrillation (4) COPD (chronic obstructive pulmonary disease) Code(s): J44.9 - CHRONIC OBSTRUCTIVE PULMONARY DISEASE, UNSPECIFIED (5) Congestive heart failure Code(s): I50.9 - HEART FAILURE, UNSPECIFIED (6) Diabetes mellitus Code(s): E11.9 - TYPE 2 DIABETES MELLITUS WITHOUT COMPLICATIONS (7) Hyperlipidemia Code(s): E78.5 - HYPERLIPIDEMIA, UNSPECIFIED (8) CHEL (acute kidney injury) Code(s): N17.9 - ACUTE KIDNEY FAILURE, UNSPECIFIED (9) Hypercalcemia Code(s): E83.52 - HYPERCALCEMIA Assessment/Plan (1) Anemia Assessment/Plan: -s/p transfusion -monitor, currently not requiring another unit Code(s): D64.9 - ANEMIA, UNSPECIFIED Qualifiers: Anemia type: unspecified type Qualified Code(s): D64.9 - Anemia, unspecified (2) Multiple myeloma Assessment/Plan: -discussed with family, decided to take her home -receiving zometa today -possible discharge over the weekend Code(s): C90.00 - MULTIPLE MYELOMA NOT HAVING ACHIEVED REMISSION Qualifiers: Multiple myeloma remission status: not in remission Qualified Code(s ): C90.00 - Multiple myeloma not having achieved remission (3) Atrial fibrillation Assessment/Plan: -rate controlled -continue coumadin 5mg daily -discharge on coumadin 2.5mg which is her home dose Code(s): I48.91 - UNSPECIFIED ATRIAL FIBRILLATION Qualifiers: Atrial fibrillation type: chronic Qualified Code(s): I48.2 - Chronic atrial fibrillation (4) COPD (chronic obstructive pulmonary disease) Assessment/Plan: -stable Code(s): J44.9 - CHRONIC OBSTRUCTIVE PULMONARY DISEASE, UNSPECIFIED (5) Congestive heart failure Assessment/Plan: -not in exacerbation -getting fluids and diuretics for hypercalcemia Code(s): I50.9 - HEART FAILURE, UNSPECIFIED (6) Diabetes mellitus Assessment/Plan: -continue home regimen -FSBS and SSI Code(s): E11.9 - TYPE 2 DIABETES MELLITUS WITHOUT COMPLICATIONS (7) Hyperlipidemia Assessment/Plan: -continue lipitor Code(s): E78.5 - HYPERLIPIDEMIA, UNSPECIFIED (8) CHEL (acute kidney injury) Assessment/Plan: -resolved Code(s): N17.9 - ACUTE KIDNEY FAILURE, UNSPECIFIED (9) Hypercalcemia -case d/w oncology -to receive zometa Dispo -possible discharge this weekend
--- NOTE | 2016-08-22 16:13 | PN ---
Progress Note, Physician History of Present Illness: Pt seen and examined at bedside. She denies shortness or breath. - Current Medication List Current Medications: Active Medications Acetaminophen (Tylenol -) 650 mg PO Q4H PRN PRN Reason: FEVER OR PAIN Last Admin: 08/21/16 21:38 Dose: 650 mg Albuterol Sulfate (Ventolin 0.083% Nebulizer Soln -) 1 amp NEB Q6H PRN PRN Reason: SHORT OF BREATH/WHEEZING Last Admin: 08/22/16 11:14 Dose: 1 amp Atorvastatin Calcium (Lipitor -) 10 mg PO HS COUNTS INCLUDE 234 BEDS AT THE [facility] Last Admin: 08/21/16 21:39 Dose: 10 mg Bumetanide (Bumex -) 2 mg PO DAILY COUNTS INCLUDE 234 BEDS AT THE [facility] Last Admin: 08/22/16 11:01 Dose: 2 mg Cholecalciferol (Vitamin D3 -) 2,000 unit PO DAILY COUNTS INCLUDE 234 BEDS AT THE [facility] Last Admin: 08/22/16 11:00 Dose: 2,000 unit Diltiazem HCl (Cardizem -) 60 mg PO BID COUNTS INCLUDE 234 BEDS AT THE [facility] Last Admin: 08/22/16 11:00 Dose: 60 mg Docusate Sodium (Colace -) 100 mg PO BID COUNTS INCLUDE 234 BEDS AT THE [facility] Last Admin: 08/22/16 11:01 Dose: 100 mg Guaifenesin (Robitussin -) 10 ml PO Q6H PRN PRN Reason: COUGH Last Admin: 08/19/16 09:35 Dose: 10 ml Sodium Chloride (Normal Saline -) 1,000 mls @ 100 mls/hr IV ASDIR COUNTS INCLUDE 234 BEDS AT THE [facility] Last Admin: 08/22/16 05:44 Dose: 100 mls/hr Insulin Aspart (Novolog Vial Sliding Scale -) 0 vial SQ BIDAC COUNTS INCLUDE 234 BEDS AT THE [facility] PRN Reason: Protocol Last Admin: 08/22/16 07:09 Dose: Not Given Ipratropium [place] (Atrovent 0.02% Nebulizer -) 1 amp NEB Q6H PRN PRN Reason: WHEEZING Last Admin: 08/22/16 11:14 Dose: 1 amp Metoprolol Succinate (Toprol Xl -) 25 mg PO DAILY COUNTS INCLUDE 234 BEDS AT THE [facility] Last Admin: 08/22/16 11:01 Dose: 25 mg Montelukast Sodium (Singulair -) 10 mg PO HS COUNTS INCLUDE 234 BEDS AT THE [facility] Last Admin: 08/21/16 21:39 Dose: 10 mg Ondansetron HCl (Zofran Injection) 4 mg IVPB Q6H PRN PRN Reason: NAUSEA Oxycodone HCl (Roxicodone -) 2.5 mg PO Q4H PRN PRN Reason: PAIN Last Admin: 08/22/16 10:55 Dose: 2.5 mg Polyethylene Glycol (Miralax (For Daily Use) -) 17 gm PO DAILY COUNTS INCLUDE 234 BEDS AT THE [facility] Last Admin: 08/22/16 11:01 Dose: 17 gm Potassium Chloride (K-Dur -) 10 meq PO BID COUNTS INCLUDE 234 BEDS AT THE [facility] Last Admin: 08/22/16 11:01 Dose: 10 meq Pregabalin (Lyrica -) 50 mg PO BID COUNTS INCLUDE 234 BEDS AT THE [facility] Last Admin: 08/22/16 11:01 Dose: 50 mg Propylthiouracil (Ptu -) 50 mg PO DAILY COUNTS INCLUDE 234 BEDS AT THE [facility] Last Admin: 08/22/16 11:01 Dose: 50 mg Ranitidine HCl (Zantac -) 150 mg PO BID COUNTS INCLUDE 234 BEDS AT THE [facility] Last Admin: 08/22/16 11:01 Dose: 150 mg Warfarin Sodium (Coumadin -) 5 mg PO DAILY@1800 COUNTS INCLUDE 234 BEDS AT THE [facility] Last Admin: 08/21/16 17:48 Dose: 5 mg - Objective Vital Signs: Vital Signs Temperature 97.7 F 08/22/16 14:36 Pulse Rate 95 H 08/22/16 14:36 Respiratory Rate 18 08/22/16 14:36 Blood Pressure 120/83 08/22/16 14:36 O2 Sat by Pulse Oximetry (%) 94 L 08/22/16 11:14 Constitutional: Yes: Calm Eyes: Yes: Conjunctiva Clear HENT: Yes: Atraumatic Neck: Yes: Supple Cardiovascular: Yes: S1, S2 Respiratory: Yes: CTA Bilaterally, On Nasal O2 Gastrointestinal: Yes: Normal Bowel Sounds, Soft Genitourinary: Yes: WNL Musculoskeletal: Yes: Back Pain Edema: No Neurological: Yes: Confusion Labs: CBC, BMP 08/22/16 06:05 08/22/16 06:05 INR, PTT INR 1.50 (0.82-1.09) H 08/22/16 06:05 Problem List - Problems (1) Anemia Code(s): D64.9 - ANEMIA, UNSPECIFIED Qualifiers: Anemia type: unspecified type Qualified Code(s): D64.9 - Anemia, unspecified (2) Confusion and disorientation Code(s): F99 - MENTAL DISORDER, NOT OTHERWISE SPECIFIED (3) Hypercalcemia Code(s): E83.52 - HYPERCALCEMIA (4) Atrial fibrillation Code(s): I48.91 - UNSPECIFIED ATRIAL FIBRILLATION Qualifiers: Atrial fibrillation type: chronic Qualified Code(s): I48.2 - Chronic atrial fibrillation (5) COPD (chronic obstructive pulmonary disease) Code(s): J44.9 - CHRONIC OBSTRUCTIVE PULMONARY DISEASE, UNSPECIFIED (6) Congestive heart failure Code(s): I50.9 - HEART FAILURE, UNSPECIFIED (7) Diabetes mellitus Code(s): E11.9 - TYPE 2 DIABETES MELLITUS WITHOUT COMPLICATIONS (8) Meningioma Code(s): D32.9 - BENIGN NEOPLASM OF MENINGES, UNSPECIFIED Assessment/Plan Current Medications Generic Name Dose Route Start Last Admin Trade Name Freq PRN Reason Stop Dose Admin Acetaminophen 650 mg 08/14/16 16:39 08/21/16 21:38 Tylenol - PO 650 mg Q4H PRN Administration FEVER OR PAIN Albuterol Sulfate 1 amp 08/14/16 16:39 08/22/16 11:14 Ventolin 0.083% Nebulizer Soln - NEB 1 amp Q6H PRN Administration SHORT OF BREATH/WHEEZING Atorvastatin Calcium 10 mg 08/14/16 22:00 08/21/16 21:39 Lipitor - PO 10 mg HS [facility] Administration Bumetanide 2 mg 08/21/16 17:00 08/22/16 11:01 Bumex - PO 2 mg DAILY [facility] Administration Cholecalciferol 2,000 unit 08/15/16 10:00 08/22/16 11:00 Vitamin D3 - PO 2,000 unit DAILY [facility] Administration Diltiazem HCl 60 mg 08/14/16 22:00 08/22/16 11:00 Cardizem - PO 60 mg BID [facility] Administration Docusate Sodium 100 mg 08/14/16 22:00 08/22/16 11:01 Colace - PO 100 mg BID [facility] Administration Guaifenesin 10 ml 08/17/16 14:14 08/19/16 09:35 Robitussin - PO 10 ml Q6H PRN Administration COUGH Sodium Chloride 1,000 mls @ 100 mls/hr 08/19/16 18:22 08/22/16 05:44 Normal Saline - IV 100 mls/hr ASDIR [facility] Administration Insulin Aspart 0 vial 08/15/16 07:00 08/22/16 07:09 Novolog Vial Sliding Scale - SQ Not Given BIDAC COUNTS INCLUDE 234 BEDS AT THE [facility] Protocol Ipratropium [place] 1 amp 08/14/16 16:39 08/22/16 11:14 Atrovent 0.02% Nebulizer - NEB 1 amp Q6H PRN Administration WHEEZING Metoprolol Succinate 25 mg 08/15/16 10:00 08/22/16 11:01 Toprol Xl - PO 25 mg DAILY [facility] Administration Montelukast Sodium 10 mg 08/14/16 22:00 08/21/16 21:39 Singulair - PO 10 mg HS [facility] Administration Ondansetron HCl 4 mg 08/14/16 16:39 Zofran Injection IVPB Q6H PRN NAUSEA Oxycodone HCl 2.5 mg 08/18/16 12:55 08/22/16 10:55 Roxicodone - PO 2.5 mg Q4H PRN Administration PAIN Polyethylene Glycol 17 gm 08/15/16 10:00 08/22/16 11:01 Miralax (For Daily Use) - PO 17 gm DAILY [facility] Administration Potassium Chloride 10 meq 08/16/16 13:45 08/22/16 11:01 K-Dur - PO 10 meq BID [facility] Administration Pregabalin 50 mg 08/14/16 22:00 08/22/16 11:01 Lyrica - PO 50 mg BID [facility] Administration Propylthiouracil 50 mg 08/15/16 10:00 08/22/16 11:01 Ptu - PO 50 mg DAILY [facility] Administration Ranitidine HCl 150 mg 08/14/16 22:00 08/22/16 11:01 Zantac - PO 150 mg BID [facility] Administration Warfarin Sodium 5 mg 08/20/16 18:00 08/21/16 17:48 Coumadin - PO 5 mg DAILY@1800 [facility] Administration Impression 1. hypercalcemia 2. CHF 3. hx meningioma 4. DM 5. HTN 6. r/o myeloma 7. anemia Plan - family want to take the patient home on comfort care - cont fluids and diuretics for now - oncology will give dose of zoledronic acid - discussed with medical attending - follow up PTH level - will follow Dr Rolle
[2016-08-22] MEDS: WARFARIN NA 5 MG TABLET (UD) PO SCH (17:33)
[2016-08-22] MEDS: MONTELUKAST NA 10 MG TABLET PO SCH (23:12)
[2016-08-22] MEDS: ATORVASTATIN CA 10 MG TABLET (FP) PO SCH (23:12)
--- NOTE | 2016-08-23 00:04 | PN ---
Progress Note (short form) - Note Progress Note: patient seen and examined vitals/labs/meds reviewed discussed with son at bedside again myeloma will add zometa transfuse prior to d/c supportive care family insistent on taking him home
[2016-08-23] MEDS: SODIUM CHLORIDE 1,000 ML IV SCH ×2 (01:00→14:30)
[2016-08-23] MEDS: INSULIN SLIDING SCALE (NOVOLOG) 1 VIAL SQ SCH ×2 (06:06→18:47)
[2016-08-23 08:06] LABS: MCH 29.5 pg (25.7-33.7); MCHC 32.6 g/dl (32.0-36.0); MEAN CELL VOLUME 90.5 fl (80-96); MEAN PLT VOLUME 8.9 fl (7.5-11.1); PLATELET COUNT 183 K/MM3 (134-434); RDW 18.5 % (11.6-15.6); WHITE BLOOD COUNT 5.8 K/mm3 (4.0-10.0)
[2016-08-23 08:19] LABS: INR 1.73 (0.82-1.09); PROTHROMBIN TIME (PATIENT) 19.3 SEC (9.98-11.88)
[2016-08-23 09:20] LABS: COCKROFT - GAULT 38.369
[2016-08-23 10:08] LABS: PLATELET ESTIMATE ADEQUATE (NORMAL); POLYCHROMASIA 1+
[2016-08-23 10:09] LABS: ANISOCYTOSIS 2+; MICROCYTOSIS FEW; OVALOCYTES 2+
[2016-08-23 10:10] LABS: ACANTHOCYTES 2+; FRAGMENTED CELL 1+; TEAR DROP CELLS 2+
[2016-08-23] MEDS: ACETAMINOPHEN 325 MG TABLET (FP) PO PRN (10:11)
[2016-08-23] MEDS: PREGABALIN 50 MG CAPSULE PO SCH ×2 (10:12→21:45)
[2016-08-23] MEDS: RANITIDINE HCL 150 MG TABLET (FP) PO SCH ×2 (10:16→21:45)
[2016-08-23] MEDS: DOCUSATE SODIUM 100 MG CAPSULE (FP) PO SCH ×2 (10:17→21:45)
[2016-08-23] MEDS: CHOLECALCIFEROL (VITAMIN D3) 1,000 UNIT TABLET (FP) PO SCH (10:18)
[2016-08-23] MEDS: PROPYLTHIOURACIL 50 MG TABLET (UD) PO SCH (10:18)
[2016-08-23] MEDS: BUMETANIDE 1 MG TABLET PO SCH (10:18)
[2016-08-23] MEDS: POTASSIUM CHLORIDE TABS 10 MEQ TABLET.ER (FP) PO SCH ×2 (10:19→21:45)
[2016-08-23] MEDS: dilTIAZem HCL 60 MG TABLET (FP) PO SCH ×2 (10:19→21:04)
[2016-08-23] MEDS: POLYETHYLENE GLYCOL 3350 119 GM BTL PO SCH (10:26)
[2016-08-23] MEDS: METOPROLOL SUCCINATE 25 MG TAB.SR.24H (FP) PO SCH (10:27)
--- NOTE | 2016-08-23 11:52 | PN ---
Progress Note, Physician Chief Complaint: Ms Sanchez says she is having back pain but currently controlled by tylenol. No cp, sob, n/v. - Current Medication List Current Medications: Active Medications Acetaminophen (Tylenol -) 650 mg PO Q4H PRN PRN Reason: FEVER OR PAIN Last Admin: 08/23/16 10:11 Dose: 650 mg Albuterol Sulfate (Ventolin 0.083% Nebulizer Soln -) 1 amp NEB Q6H PRN PRN Reason: SHORT OF BREATH/WHEEZING Last Admin: 08/22/16 23:24 Dose: 1 amp Atorvastatin Calcium (Lipitor -) 10 mg PO HS [facility] Last Admin: 08/22/16 23:12 Dose: 10 mg Bumetanide (Bumex -) 2 mg PO DAILY [facility] Last Admin: 08/23/16 10:18 Dose: 2 mg Cholecalciferol (Vitamin D3 -) 2,000 unit PO DAILY [facility] Last Admin: 08/23/16 10:18 Dose: 2,000 unit Diltiazem HCl (Cardizem -) 60 mg PO BID [facility] Last Admin: 08/23/16 10:19 Dose: 60 mg Docusate Sodium (Colace -) 100 mg PO BID [facility] Last Admin: 08/23/16 10:17 Dose: 100 mg Guaifenesin (Robitussin -) 10 ml PO Q6H PRN PRN Reason: COUGH Last Admin: 08/19/16 09:35 Dose: 10 ml Sodium Chloride (Normal Saline -) 1,000 mls @ 100 mls/hr IV ASDIR [facility] Last Admin: 08/23/16 01:00 Dose: 100 mls/hr Insulin Aspart (Novolog Vial Sliding Scale -) 0 vial SQ BIDAC [facility] PRN Reason: Protocol Last Admin: 08/23/16 06:06 Dose: Not Given Ipratropium [place] (Atrovent 0.02% Nebulizer -) 1 amp NEB Q6H PRN PRN Reason: WHEEZING Last Admin: 08/22/16 23:24 Dose: 1 amp Metoprolol Succinate (Toprol Xl -) 25 mg PO DAILY [facility] Last Admin: 08/23/16 10:27 Dose: 25 mg Montelukast Sodium (Singulair -) 10 mg PO HS [facility] Last Admin: 08/22/16 23:12 Dose: 10 mg Ondansetron HCl (Zofran Injection) 4 mg IVPB Q6H PRN PRN Reason: NAUSEA Oxycodone HCl (Roxicodone -) 2.5 mg PO Q4H PRN PRN Reason: PAIN Last Admin: 08/22/16 10:55 Dose: 2.5 mg Polyethylene Glycol (Miralax (For Daily Use) -) 17 gm PO DAILY [facility] Last Admin: 08/23/16 10:26 Dose: 17 gm Potassium Chloride (K-Dur -) 10 meq PO BID [facility] Last Admin: 08/23/16 10:19 Dose: 10 meq Pregabalin (Lyrica -) 50 mg PO BID [facility] Last Admin: 08/23/16 10:12 Dose: 50 mg Propylthiouracil (Ptu -) 50 mg PO DAILY [facility] Last Admin: 08/23/16 10:18 Dose: 50 mg Ranitidine HCl (Zantac -) 150 mg PO BID [facility] Last Admin: 08/23/16 10:16 Dose: 150 mg Warfarin Sodium (Coumadin -) 5 mg PO DAILY@1800 [facility] Last Admin: 08/22/16 17:33 Dose: 5 mg - Objective Vital Signs: Vital Signs Temperature 98.9 F 08/23/16 09:31 Pulse Rate 74 08/23/16 09:31 Respiratory Rate 20 08/23/16 09:31 Blood Pressure 128/52 08/23/16 09:31 O2 Sat by Pulse Oximetry (%) 94 L 08/22/16 20:42 Constitutional: Yes: Well Nourished, No Distress, Calm Cardiovascular: Yes: Pulse Irregular. No: Tachycardia, Gallop, Murmur, Rub Respiratory: Yes: Regular, CTA Bilaterally. No: Rales, Rhonchi, Wheezes Gastrointestinal: Yes: Normal Bowel Sounds, Soft. No: Distention, Tenderness Extremities: Yes: WNL Edema: No Labs: CBC, BMP 08/23/16 06:00 08/23/16 06:00 INR, PTT INR 1.73 (0.82-1.09) H 08/23/16 06:00 Problem List - Problems (1) Anemia Code(s): D64.9 - ANEMIA, UNSPECIFIED Qualifiers: Anemia type: unspecified type Qualified Code(s): D64.9 - Anemia, unspecified (2) Multiple myeloma Code(s): C90.00 - MULTIPLE MYELOMA NOT HAVING ACHIEVED REMISSION Qualifiers: Multiple myeloma remission status: not in remission Qualified Code(s ): C90.00 - Multiple myeloma not having achieved remission (3) Atrial fibrillation Code(s): I48.91 - UNSPECIFIED ATRIAL FIBRILLATION Qualifiers: Atrial fibrillation type: chronic Qualified Code(s): I48.2 - Chronic atrial fibrillation (4) COPD (chronic obstructive pulmonary disease) Code(s): J44.9 - CHRONIC OBSTRUCTIVE PULMONARY DISEASE, UNSPECIFIED (5) Congestive heart failure Code(s): I50.9 - HEART FAILURE, UNSPECIFIED (6) Diabetes mellitus Code(s): E11.9 - TYPE 2 DIABETES MELLITUS WITHOUT COMPLICATIONS (7) Hyperlipidemia Code(s): E78.5 - HYPERLIPIDEMIA, UNSPECIFIED (8) CHEL (acute kidney injury) Code(s): N17.9 - ACUTE KIDNEY FAILURE, UNSPECIFIED (9) Hypercalcemia Code(s): E83.52 - HYPERCALCEMIA Assessment/Plan (1) Anemia Assessment/Plan: -s/p transfusion -further transfusion per hematology Code(s): D64.9 - ANEMIA, UNSPECIFIED Qualifiers: Anemia type: unspecified type Qualified Code(s): D64.9 - Anemia, unspecified (2) Multiple myeloma Assessment/Plan: -discussed with family, decided to take her home -hematology to give zometa Code(s): C90.00 - MULTIPLE MYELOMA NOT HAVING ACHIEVED REMISSION Qualifiers: Multiple myeloma remission status: not in remission Qualified Code(s ): C90.00 - Multiple myeloma not having achieved remission (3) Atrial fibrillation Assessment/Plan: -rate controlled -continue coumadin 5mg daily -discharge on coumadin 2.5mg which is her home dose Code(s): I48.91 - UNSPECIFIED ATRIAL FIBRILLATION Qualifiers: Atrial fibrillation type: chronic Qualified Code(s): I48.2 - Chronic atrial fibrillation (4) COPD (chronic obstructive pulmonary disease) Assessment/Plan: -stable Code(s): J44.9 - CHRONIC OBSTRUCTIVE PULMONARY DISEASE, UNSPECIFIED (5) Congestive heart failure Assessment/Plan: -not in exacerbation -to receive zometa Code(s): I50.9 - HEART FAILURE, UNSPECIFIED (6) Diabetes mellitus Assessment/Plan: -continue home regimen -FSBS and SSI Code(s): E11.9 - TYPE 2 DIABETES MELLITUS WITHOUT COMPLICATIONS (7) Hyperlipidemia Assessment/Plan: -continue lipitor Code(s): E78.5 - HYPERLIPIDEMIA, UNSPECIFIED (8) CHEL (acute kidney injury) Assessment/Plan: -resolved Code(s): N17.9 - ACUTE KIDNEY FAILURE, UNSPECIFIED (9) Hypercalcemia -case d/w oncology -to receive zometa
--- NOTE | 2016-08-23 13:10 | PN ---
Progress Note, Physician History of Present Illness: Pt seen and examined at bedside. She is awake and appears comfortable. - Current Medication List Current Medications: Active Medications Acetaminophen (Tylenol -) 650 mg PO Q4H PRN PRN Reason: FEVER OR PAIN Last Admin: 08/23/16 10:11 Dose: 650 mg Albuterol Sulfate (Ventolin 0.083% Nebulizer Soln -) 1 amp NEB Q6H PRN PRN Reason: SHORT OF BREATH/WHEEZING Last Admin: 08/22/16 23:24 Dose: 1 amp Atorvastatin Calcium (Lipitor -) 10 mg PO HS [facility] Last Admin: 08/22/16 23:12 Dose: 10 mg Bumetanide (Bumex -) 2 mg PO DAILY [facility] Last Admin: 08/23/16 10:18 Dose: 2 mg Cholecalciferol (Vitamin D3 -) 2,000 unit PO DAILY [facility] Last Admin: 08/23/16 10:18 Dose: 2,000 unit Diltiazem HCl (Cardizem -) 60 mg PO BID [facility] Last Admin: 08/23/16 10:19 Dose: 60 mg Docusate Sodium (Colace -) 100 mg PO BID [facility] Last Admin: 08/23/16 10:17 Dose: 100 mg Guaifenesin (Robitussin -) 10 ml PO Q6H PRN PRN Reason: COUGH Last Admin: 08/19/16 09:35 Dose: 10 ml Sodium Chloride (Normal Saline -) 1,000 mls @ 100 mls/hr IV ASDIR [facility] Last Admin: 08/23/16 01:00 Dose: 100 mls/hr Insulin Aspart (Novolog Vial Sliding Scale -) 0 vial SQ BIDAC [facility] PRN Reason: Protocol Last Admin: 08/23/16 06:06 Dose: Not Given Ipratropium [place] (Atrovent 0.02% Nebulizer -) 1 amp NEB Q6H PRN PRN Reason: WHEEZING Last Admin: 08/22/16 23:24 Dose: 1 amp Metoprolol Succinate (Toprol Xl -) 25 mg PO DAILY [facility] Last Admin: 08/23/16 10:27 Dose: 25 mg Montelukast Sodium (Singulair -) 10 mg PO HS [facility] Last Admin: 08/22/16 23:12 Dose: 10 mg Ondansetron HCl (Zofran Injection) 4 mg IVPB Q6H PRN PRN Reason: NAUSEA Oxycodone HCl (Roxicodone -) 2.5 mg PO Q4H PRN PRN Reason: PAIN Last Admin: 08/22/16 10:55 Dose: 2.5 mg Polyethylene Glycol (Miralax (For Daily Use) -) 17 gm PO DAILY [facility] Last Admin: 08/23/16 10:26 Dose: 17 gm Potassium Chloride (K-Dur -) 10 meq PO BID [facility] Last Admin: 08/23/16 10:19 Dose: 10 meq Pregabalin (Lyrica -) 50 mg PO BID [facility] Last Admin: 08/23/16 10:12 Dose: 50 mg Propylthiouracil (Ptu -) 50 mg PO DAILY [facility] Last Admin: 08/23/16 10:18 Dose: 50 mg Ranitidine HCl (Zantac -) 150 mg PO BID [facility] Last Admin: 08/23/16 10:16 Dose: 150 mg Warfarin Sodium (Coumadin -) 5 mg PO DAILY@1800 [facility] Last Admin: 08/22/16 17:33 Dose: 5 mg - Objective Vital Signs: Vital Signs Temperature 98.9 F 08/23/16 09:31 Pulse Rate 74 08/23/16 09:31 Respiratory Rate 20 08/23/16 09:31 Blood Pressure 128/52 08/23/16 09:31 O2 Sat by Pulse Oximetry (%) 94 L 08/22/16 20:42 Constitutional: Yes: Calm Eyes: Yes: Conjunctiva Clear HENT: Yes: Atraumatic Cardiovascular: Yes: S1, S2 Respiratory: Yes: On Nasal O2 Gastrointestinal: Yes: Soft Genitourinary: Yes: WNL Musculoskeletal: Yes: Back Pain Edema: No Neurological: Yes: Oriented Labs: CBC, BMP 08/23/16 06:00 08/23/16 06:00 INR, PTT INR 1.73 (0.82-1.09) H 08/23/16 06:00 Problem List - Problems (1) Anemia Code(s): D64.9 - ANEMIA, UNSPECIFIED Qualifiers: Anemia type: unspecified type Qualified Code(s): D64.9 - Anemia, unspecified (2) Confusion and disorientation Code(s): F99 - MENTAL DISORDER, NOT OTHERWISE SPECIFIED (3) Hypercalcemia Code(s): E83.52 - HYPERCALCEMIA (4) Atrial fibrillation Code(s): I48.91 - UNSPECIFIED ATRIAL FIBRILLATION Qualifiers: Atrial fibrillation type: chronic Qualified Code(s): I48.2 - Chronic atrial fibrillation (5) COPD (chronic obstructive pulmonary disease) Code(s): J44.9 - CHRONIC OBSTRUCTIVE PULMONARY DISEASE, UNSPECIFIED (6) Congestive heart failure Code(s): I50.9 - HEART FAILURE, UNSPECIFIED (7) Diabetes mellitus Code(s): E11.9 - TYPE 2 DIABETES MELLITUS WITHOUT COMPLICATIONS (8) Meningioma Code(s): D32.9 - BENIGN NEOPLASM OF MENINGES, UNSPECIFIED Assessment/Plan Current Medications Generic Name Dose Route Start Last Admin Trade Name Freq PRN Reason Stop Dose Admin Acetaminophen 650 mg 08/14/16 16:39 08/23/16 10:11 Tylenol - PO 650 mg Q4H PRN Administration FEVER OR PAIN Albuterol Sulfate 1 amp 08/14/16 16:39 08/22/16 23:24 Ventolin 0.083% Nebulizer Soln - NEB 1 amp Q6H PRN Administration SHORT OF BREATH/WHEEZING Atorvastatin Calcium 10 mg 08/14/16 22:00 08/22/16 23:12 Lipitor - PO 10 mg HS [facility] Administration Bumetanide 2 mg 08/21/16 17:00 08/23/16 10:18 Bumex - PO 2 mg DAILY [facility] Administration Cholecalciferol 2,000 unit 08/15/16 10:00 08/23/16 10:18 Vitamin D3 - PO 2,000 unit DAILY [facility] Administration Diltiazem HCl 60 mg 08/14/16 22:00 08/23/16 10:19 Cardizem - PO 60 mg BID [facility] Administration Docusate Sodium 100 mg 08/14/16 22:00 08/23/16 10:17 Colace - PO 100 mg BID [facility] Administration Guaifenesin 10 ml 08/17/16 14:14 08/19/16 09:35 Robitussin - PO 10 ml Q6H PRN Administration COUGH Sodium Chloride 1,000 mls @ 100 mls/hr 08/19/16 18:22 08/23/16 01:00 Normal Saline - IV 100 mls/hr ASDIR [facility] Administration Insulin Aspart 0 vial 08/15/16 07:00 08/23/16 06:06 Novolog Vial Sliding Scale - SQ Not Given BIDAC [facility] Protocol Ipratropium [place] 1 amp 08/14/16 16:39 08/22/16 23:24 Atrovent 0.02% Nebulizer - NEB 1 amp Q6H PRN Administration WHEEZING Metoprolol Succinate 25 mg 08/15/16 10:00 08/23/16 10:27 Toprol Xl - PO 25 mg DAILY [facility] Administration Montelukast Sodium 10 mg 08/14/16 22:00 08/22/16 23:12 Singulair - PO 10 mg HS [facility] Administration Ondansetron HCl 4 mg 08/14/16 16:39 Zofran Injection IVPB Q6H PRN NAUSEA Oxycodone HCl 2.5 mg 08/18/16 12:55 08/22/16 10:55 Roxicodone - PO 2.5 mg Q4H PRN Administration PAIN Polyethylene Glycol 17 gm 08/15/16 10:00 08/23/16 10:26 Miralax (For Daily Use) - PO 17 gm DAILY [facility] Administration Potassium Chloride 10 meq 08/16/16 13:45 08/23/16 10:19 K-Dur - PO 10 meq BID [facility] Administration Pregabalin 50 mg 08/14/16 22:00 08/23/16 10:12 Lyrica - PO 50 mg BID [facility] Administration Propylthiouracil 50 mg 08/15/16 10:00 08/23/16 10:18 Ptu - PO 50 mg DAILY [facility] Administration Ranitidine HCl 150 mg 08/14/16 22:00 08/23/16 10:16 Zantac - PO 150 mg BID [facility] Administration Warfarin Sodium 5 mg 08/20/16 18:00 08/22/16 17:33 Coumadin - PO 5 mg DAILY@1800 [facility] Administration Laboratory Tests 08/20/16 06:00 PTH Intact 15 Impression 1. hypercalcemia 2. CHF 3. hx meningioma 4. DM 5. HTN 6. r/o myeloma 7. anemia Plan - cont with fluids, will decrease rate - calcium level is improving - pt is going to go home with comfort care - oncology input appreciated - oncology will give dose of zoledronic acid - PTH level is suppressed, which is expected - will follow Dr Rolle
[2016-08-23] MEDS: oxyCODONE HCL 5 MG TABLET PO PRN (14:39)
[2016-08-23] MEDS: WARFARIN NA 5 MG TABLET (UD) PO SCH (18:48)
[2016-08-23] MEDS ORDERED: ZOLEDRONIC ACID IVPB ONE (21:00)
[2016-08-23] MEDS ORDERED: SODIUM CHLORIDE IVPB ONE (21:00)
[2016-08-23] MEDS: ALBUTEROL SO4 0.083% IH SOL 2.5 MG/3 ML VIAL.NEB. NEB PRN (21:42)
[2016-08-23] MEDS: IPRATROPIUM BR 0.02% 0.5 MG/2.5 ML VIAL.NEB. NEB PRN (21:42)
[2016-08-23] MEDS: MONTELUKAST NA 10 MG TABLET PO SCH (21:45)
[2016-08-23] MEDS: ATORVASTATIN CA 10 MG TABLET (FP) PO SCH (21:45)
[2016-08-24] MEDS: ACETAMINOPHEN 325 MG TABLET (FP) PO PRN ×2 (03:27→09:52)
[2016-08-24] MEDS: INSULIN SLIDING SCALE (NOVOLOG) 1 VIAL SQ SCH ×2 (06:26→17:29)
[2016-08-24] MEDS: SODIUM CHLORIDE 1,000 ML IV SCH ×2 (06:26→14:00)
[2016-08-24] MEDS ORDERED: PT OWN MED DRAWER 7, Y5N ONE ×2 (06:45→09:46)
[2016-08-24] MEDS ORDERED: INSULIN (NOVOLOG) ASPART 100 UNITS/ML 10ML VIAL ONE (06:45)
[2016-08-24 08:18] LABS: MCH 29.2 pg (25.7-33.7); MCHC 32.5 g/dl (32.0-36.0); MEAN CELL VOLUME 89.6 fl (80-96); PLATELET COUNT 173 K/MM3 (134-434); RDW 18.8 % (11.6-15.6); WHITE BLOOD COUNT 6.1 K/mm3 (4.0-10.0)
[2016-08-24 08:20] LABS: INR 2.02 (0.82-1.09); PROTHROMBIN TIME (PATIENT) 22.5 SEC (9.98-11.88)
[2016-08-24] MEDS: PROPYLTHIOURACIL 50 MG TABLET (UD) PO SCH (09:49)
[2016-08-24] MEDS: METOPROLOL SUCCINATE 25 MG TAB.SR.24H (FP) PO SCH (09:51)
[2016-08-24] MEDS: DOCUSATE SODIUM 100 MG CAPSULE (FP) PO SCH ×2 (09:51→21:31)
[2016-08-24] MEDS: PREGABALIN 50 MG CAPSULE PO SCH ×2 (09:51→21:31)
[2016-08-24] MEDS: RANITIDINE HCL 150 MG TABLET (FP) PO SCH ×2 (09:51→21:31)
[2016-08-24] MEDS: BUMETANIDE 1 MG TABLET PO SCH (09:51)
[2016-08-24] MEDS: dilTIAZem HCL 60 MG TABLET (FP) PO SCH ×2 (09:51→21:31)
[2016-08-24] MEDS: CHOLECALCIFEROL (VITAMIN D3) 1,000 UNIT TABLET (FP) PO SCH (09:51)
[2016-08-24] MEDS: POTASSIUM CHLORIDE TABS 10 MEQ TABLET.ER (FP) PO SCH ×2 (09:51→21:31)
[2016-08-24] MEDS: POLYETHYLENE GLYCOL 3350 119 GM BTL PO SCH (09:53)
[2016-08-24 10:39] LABS: METAMYELOCYTE 2 % (0-2); PLATELET ESTIMATE ADEQUATE (NORMAL)
[2016-08-24 10:40] LABS: ALBUMIN 2.4 g/dl (3.4-5.0); BILIRUBIN,TOTAL 0.5 mg/dL (0.2-1.0); CALCIUM 9.2 mg/dL (8.5-10.1); COCKROFT - GAULT 35.87; CREATININE 1.1 mg/dL (0.55-1.02); TOT PROT 10.5 g/dl (6.4-8.2)
[2016-08-24] MEDS: oxyCODONE HCL 5 MG TABLET PO PRN ×2 (11:22→19:57)
--- NOTE | 2016-08-24 11:30 | PN ---
Progress Note, Physician Chief Complaint: Ms Sanchez says the back pain is worse today. No cp, sob, n/v. - Current Medication List Current Medications: Active Medications Acetaminophen (Tylenol -) 650 mg PO Q4H PRN PRN Reason: FEVER OR PAIN Last Admin: 08/24/16 09:52 Dose: 650 mg Albuterol Sulfate (Ventolin 0.083% Nebulizer Soln -) 1 amp NEB Q6H PRN PRN Reason: SHORT OF BREATH/WHEEZING Last Admin: 08/23/16 21:42 Dose: 1 amp Atorvastatin Calcium (Lipitor -) 10 mg PO HS [facility] Last Admin: 08/23/16 21:45 Dose: 10 mg Bumetanide (Bumex -) 2 mg PO DAILY [facility] Last Admin: 08/24/16 09:51 Dose: 2 mg Cholecalciferol (Vitamin D3 -) 2,000 unit PO DAILY [facility] Last Admin: 08/24/16 09:51 Dose: 2,000 unit Diltiazem HCl (Cardizem -) 60 mg PO BID [facility] Last Admin: 08/24/16 09:51 Dose: 60 mg Docusate Sodium (Colace -) 100 mg PO BID [facility] Last Admin: 08/24/16 09:51 Dose: 100 mg Guaifenesin (Robitussin -) 10 ml PO Q6H PRN PRN Reason: COUGH Last Admin: 08/19/16 09:35 Dose: 10 ml Sodium Chloride (Normal Saline -) 1,000 mls @ 75 mls/hr IV ASDIR [facility] Last Admin: 08/24/16 06:26 Dose: 75 mls/hr Insulin Aspart (Novolog Vial Sliding Scale -) 0 vial SQ BIDAC [facility] PRN Reason: Protocol Last Admin: 08/24/16 06:26 Dose: Not Given Ipratropium [place] (Atrovent 0.02% Nebulizer -) 1 amp NEB Q6H PRN PRN Reason: WHEEZING Last Admin: 08/23/16 21:42 Dose: 1 amp Metoprolol Succinate (Toprol Xl -) 25 mg PO DAILY [facility] Last Admin: 08/24/16 09:51 Dose: 25 mg Montelukast Sodium (Singulair -) 10 mg PO HS [facility] Last Admin: 08/23/16 21:45 Dose: 10 mg Ondansetron HCl (Zofran Injection) 4 mg IVPB Q6H PRN PRN Reason: NAUSEA Oxycodone HCl (Roxicodone -) 2.5 mg PO Q4H PRN PRN Reason: PAIN Last Admin: 08/24/16 11:22 Dose: 2.5 mg Polyethylene Glycol (Miralax (For Daily Use) -) 17 gm PO DAILY [facility] Last Admin: 08/24/16 09:53 Dose: 17 gm Potassium Chloride (K-Dur -) 10 meq PO BID [facility] Last Admin: 08/24/16 09:51 Dose: 10 meq Pregabalin (Lyrica -) 50 mg PO BID [facility] Last Admin: 08/24/16 09:51 Dose: 50 mg Propylthiouracil (Ptu -) 50 mg PO DAILY [facility] Last Admin: 08/24/16 09:49 Dose: 50 mg Ranitidine HCl (Zantac -) 150 mg PO BID [facility] Last Admin: 08/24/16 09:51 Dose: 150 mg Warfarin Sodium (Coumadin -) 5 mg PO DAILY@1800 [facility] Last Admin: 08/23/16 18:48 Dose: 5 mg - Objective Vital Signs: Vital Signs Temperature 98.6 F 08/24/16 05:40 Pulse Rate 95 H 08/24/16 05:40 Respiratory Rate 20 08/24/16 05:40 Blood Pressure 129/69 08/24/16 05:40 O2 Sat by Pulse Oximetry (%) 94 L 08/23/16 21:00 Constitutional: Yes: Well Nourished, No Distress, Calm Cardiovascular: Yes: Pulse Irregular. No: Tachycardia, Gallop, Murmur, Rub Respiratory: Yes: Regular, CTA Bilaterally. No: Rales, Rhonchi, Wheezes Gastrointestinal: Yes: Normal Bowel Sounds, Soft. No: Distention, Tenderness Extremities: Yes: WNL Edema: No Labs: CBC, BMP 08/24/16 06:00 08/24/16 09:45 INR, PTT INR 2.02 (0.82-1.09) H 08/24/16 06:00 Problem List - Problems (1) Anemia Code(s): D64.9 - ANEMIA, UNSPECIFIED Qualifiers: Anemia type: unspecified type Qualified Code(s): D64.9 - Anemia, unspecified (2) Multiple myeloma Code(s): C90.00 - MULTIPLE MYELOMA NOT HAVING ACHIEVED REMISSION Qualifiers: Multiple myeloma remission status: not in remission Qualified Code(s ): C90.00 - Multiple myeloma not having achieved remission (3) Atrial fibrillation Code(s): I48.91 - UNSPECIFIED ATRIAL FIBRILLATION Qualifiers: Atrial fibrillation type: chronic Qualified Code(s): I48.2 - Chronic atrial fibrillation (4) COPD (chronic obstructive pulmonary disease) Code(s): J44.9 - CHRONIC OBSTRUCTIVE PULMONARY DISEASE, UNSPECIFIED (5) Congestive heart failure Code(s): I50.9 - HEART FAILURE, UNSPECIFIED (6) Diabetes mellitus Code(s): E11.9 - TYPE 2 DIABETES MELLITUS WITHOUT COMPLICATIONS (7) Hyperlipidemia Code(s): E78.5 - HYPERLIPIDEMIA, UNSPECIFIED (8) CHEL (acute kidney injury) Code(s): N17.9 - ACUTE KIDNEY FAILURE, UNSPECIFIED (9) Hypercalcemia Code(s): E83.52 - HYPERCALCEMIA Assessment/Plan (1) Anemia Assessment/Plan: -s/p transfusion -further transfusion per hematology Code(s): D64.9 - ANEMIA, UNSPECIFIED Qualifiers: Anemia type: unspecified type Qualified Code(s): D64.9 - Anemia, unspecified (2) Multiple myeloma Assessment/Plan: -discussed with family, decided to take her home -s/p zometa, cause of pain exacerbation Code(s): C90.00 - MULTIPLE MYELOMA NOT HAVING ACHIEVED REMISSION Qualifiers: Multiple myeloma remission status: not in remission Qualified Code(s ): C90.00 - Multiple myeloma not having achieved remission (3) Atrial fibrillation Assessment/Plan: -rate controlled -continue coumadin 5mg daily -discharge on coumadin 2.5mg which is her home dose Code(s): I48.91 - UNSPECIFIED ATRIAL FIBRILLATION Qualifiers: Atrial fibrillation type: chronic Qualified Code(s): I48.2 - Chronic atrial fibrillation (4) COPD (chronic obstructive pulmonary disease) Assessment/Plan: -stable Code(s): J44.9 - CHRONIC OBSTRUCTIVE PULMONARY DISEASE, UNSPECIFIED (5) Congestive heart failure Assessment/Plan: -not in exacerbation Code(s): I50.9 - HEART FAILURE, UNSPECIFIED (6) Diabetes mellitus Assessment/Plan: -continue home regimen -FSBS and SSI Code(s): E11.9 - TYPE 2 DIABETES MELLITUS WITHOUT COMPLICATIONS (7) Hyperlipidemia Assessment/Plan: -continue lipitor Code(s): E78.5 - HYPERLIPIDEMIA, UNSPECIFIED (8) CHEL (acute kidney injury) Assessment/Plan: -resolved Code(s): N17.9 - ACUTE KIDNEY FAILURE, UNSPECIFIED (9) Hypercalcemia -s/p zometa Dispo -possible discharge in next 24-48 hours if pain is controlled
--- NOTE | 2016-08-24 12:52 | PN ---
Progress Note, Physician History of Present Illness: Renal F/U C/O back pain Received Zometa for the hypercalcemia yesterday IVF in progress - Current Medication List Current Medications: Active Medications Acetaminophen (Tylenol -) 650 mg PO Q4H PRN PRN Reason: FEVER OR PAIN Last Admin: 08/24/16 09:52 Dose: 650 mg Albuterol Sulfate (Ventolin 0.083% Nebulizer Soln -) 1 amp NEB Q6H PRN PRN Reason: SHORT OF BREATH/WHEEZING Last Admin: 08/23/16 21:42 Dose: 1 amp Atorvastatin Calcium (Lipitor -) 10 mg PO HS [facility] Last Admin: 08/23/16 21:45 Dose: 10 mg Bumetanide (Bumex -) 2 mg PO DAILY [facility] Last Admin: 08/24/16 09:51 Dose: 2 mg Cholecalciferol (Vitamin D3 -) 2,000 unit PO DAILY [facility] Last Admin: 08/24/16 09:51 Dose: 2,000 unit Diltiazem HCl (Cardizem -) 60 mg PO BID [facility] Last Admin: 08/24/16 09:51 Dose: 60 mg Docusate Sodium (Colace -) 100 mg PO BID [facility] Last Admin: 08/24/16 09:51 Dose: 100 mg Guaifenesin (Robitussin -) 10 ml PO Q6H PRN PRN Reason: COUGH Last Admin: 08/19/16 09:35 Dose: 10 ml Sodium Chloride (Normal Saline -) 1,000 mls @ 75 mls/hr IV ASDIR [facility] Last Admin: 08/24/16 06:26 Dose: 75 mls/hr Insulin Aspart (Novolog Vial Sliding Scale -) 0 vial SQ BIDAC [facility] PRN Reason: Protocol Last Admin: 08/24/16 06:26 Dose: Not Given Ipratropium [place] (Atrovent 0.02% Nebulizer -) 1 amp NEB Q6H PRN PRN Reason: WHEEZING Last Admin: 08/23/16 21:42 Dose: 1 amp Metoprolol Succinate (Toprol Xl -) 25 mg PO DAILY [facility] Last Admin: 08/24/16 09:51 Dose: 25 mg Montelukast Sodium (Singulair -) 10 mg PO HS [facility] Last Admin: 08/23/16 21:45 Dose: 10 mg Ondansetron HCl (Zofran Injection) 4 mg IVPB Q6H PRN PRN Reason: NAUSEA Oxycodone HCl (Roxicodone -) 2.5 mg PO Q4H PRN PRN Reason: PAIN Last Admin: 08/24/16 11:22 Dose: 2.5 mg Polyethylene Glycol (Miralax (For Daily Use) -) 17 gm PO DAILY [facility] Last Admin: 08/24/16 09:53 Dose: 17 gm Potassium Chloride (K-Dur -) 10 meq PO BID [facility] Last Admin: 08/24/16 09:51 Dose: 10 meq Pregabalin (Lyrica -) 50 mg PO BID [facility] Last Admin: 08/24/16 09:51 Dose: 50 mg Propylthiouracil (Ptu -) 50 mg PO DAILY [facility] Last Admin: 08/24/16 09:49 Dose: 50 mg Ranitidine HCl (Zantac -) 150 mg PO BID [facility] Last Admin: 08/24/16 09:51 Dose: 150 mg Warfarin Sodium (Coumadin -) 5 mg PO DAILY@1800 [facility] Last Admin: 08/23/16 18:48 Dose: 5 mg - Objective Vital Signs: Vital Signs Temperature 98.6 F 08/24/16 05:40 Pulse Rate 95 H 08/24/16 05:40 Respiratory Rate 20 08/24/16 05:40 Blood Pressure 129/69 08/24/16 05:40 O2 Sat by Pulse Oximetry (%) 94 L 08/23/16 21:00 Constitutional: Yes: No Distress, Calm Cardiovascular: Yes: S1, S2. No: JVD Respiratory: Yes: CTA Bilaterally Gastrointestinal: Yes: Soft. No: Tenderness, Rebound Edema: No Labs: CBC, BMP 08/24/16 06:00 08/24/16 09:45 INR, PTT INR 2.02 (0.82-1.09) H 08/24/16 06:00 Laboratory Tests 08/23/16 08/24/16 06:00 09:45 Calcium 9.0 9.2 Total Bilirubin 0.5 AST 24 ALT 23 Alkaline Phosphatase 71 Total Protein 10.5 H Albumin 2.4 L Assessment/Plan Impression 1. hypercalcemia 2. CHF 3. hx meningioma 4. DM 5. HTN 6. r/o myeloma 7. anemia Plan IVF and Zometa as ordered No changes made Dr Hale
[2016-08-24] MEDS: WARFARIN NA 5 MG TABLET (UD) PO SCH (17:34)
[2016-08-24] MEDS: IPRATROPIUM BR 0.02% 0.5 MG/2.5 ML VIAL.NEB. NEB PRN (19:06)
[2016-08-24] MEDS: ALBUTEROL SO4 0.083% IH SOL 2.5 MG/3 ML VIAL.NEB. NEB PRN (19:07)
[2016-08-24] MEDS: ATORVASTATIN CA 10 MG TABLET (FP) PO SCH (21:31)
[2016-08-24] MEDS: MONTELUKAST NA 10 MG TABLET PO SCH (21:31)
[2016-08-25] MEDS: INSULIN SLIDING SCALE (NOVOLOG) 1 VIAL SQ SCH ×2 (06:22→19:06)
[2016-08-25] MEDS: SODIUM CHLORIDE 1,000 ML IV SCH ×2 (06:22→17:24)
[2016-08-25 07:54] LABS: BASOPHIL 0.3 % (0-2.0); EOSINOPHIL 1.8 % (0-4.5); MCH 29.7 pg (25.7-33.7); MCHC 33.3 g/dl (32.0-36.0); MEAN CELL VOLUME 89.2 fl (80-96); MEAN PLT VOLUME 8.9 fl (7.5-11.1); NEUTROPHILS 72.7 % (42.8-82.8); PLATELET COUNT 158 K/MM3 (134-434); RDW 18.3 % (11.6-15.6); WHITE BLOOD COUNT 4.3 K/mm3 (4.0-10.0)
[2016-08-25 08:38] LABS: INR 2.42 (0.82-1.09); PROTHROMBIN TIME (PATIENT) 27.1 SEC (9.98-11.88)
[2016-08-25 09:46] LABS: CALCIUM 8.2 mg/dL (8.5-10.1); COCKROFT - GAULT 40.1455
--- NOTE | 2016-08-25 10:41 | PN ---
Progress Note, Physician Chief Complaint: afib, chf History of Present Illness: severe pain ongoing (R hip worst) no sob, orthopnea no cp no palpit - Current Medication List Current Medications: Active Medications Acetaminophen (Tylenol -) 650 mg PO Q4H PRN PRN Reason: FEVER OR PAIN Last Admin: 08/24/16 09:52 Dose: 650 mg Albuterol Sulfate (Ventolin 0.083% Nebulizer Soln -) 1 amp NEB Q6H PRN PRN Reason: SHORT OF BREATH/WHEEZING Last Admin: 08/24/16 19:07 Dose: 1 amp Atorvastatin Calcium (Lipitor -) 10 mg PO [facility] Last Admin: 08/24/16 21:31 Dose: 10 mg Bumetanide (Bumex -) 2 mg PO DAILY [facility] Last Admin: 08/24/16 09:51 Dose: 2 mg Cholecalciferol (Vitamin D3 -) 2,000 unit PO DAILY [facility] Last Admin: 08/24/16 09:51 Dose: 2,000 unit Diltiazem HCl (Cardizem -) 60 mg PO BID [facility] Last Admin: 08/24/16 21:31 Dose: 60 mg Docusate Sodium (Colace -) 100 mg PO BID [facility] Last Admin: 08/24/16 21:31 Dose: 100 mg Guaifenesin (Robitussin -) 10 ml PO Q6H PRN PRN Reason: COUGH Last Admin: 08/19/16 09:35 Dose: 10 ml Sodium Chloride (Normal Saline -) 1,000 mls @ 75 mls/hr IV ASDIR [facility] Last Admin: 08/25/16 06:22 Dose: 75 mls/hr Insulin Aspart (Novolog Vial Sliding Scale -) 0 vial SQ BIDAC [facility] PRN Reason: Protocol Last Admin: 08/25/16 06:22 Dose: Not Given Ipratropium [place] (Atrovent 0.02% Nebulizer -) 1 amp NEB Q6H PRN PRN Reason: WHEEZING Last Admin: 08/24/16 19:06 Dose: 1 amp Metoprolol Succinate (Toprol Xl -) 25 mg PO DAILY [facility] Last Admin: 08/24/16 09:51 Dose: 25 mg Montelukast Sodium (Singulair -) 10 mg PO [facility] Last Admin: 08/24/16 21:31 Dose: 10 mg Ondansetron HCl (Zofran Injection) 4 mg IVPB Q6H PRN PRN Reason: NAUSEA Oxycodone HCl (Roxicodone -) 2.5 mg PO Q4H PRN PRN Reason: PAIN Last Admin: 08/24/16 19:57 Dose: 2.5 mg Polyethylene Glycol (Miralax (For Daily Use) -) 17 gm PO DAILY [facility] Last Admin: 08/24/16 09:53 Dose: 17 gm Potassium Chloride (K-Dur -) 10 meq PO BID [facility] Last Admin: 08/24/16 21:31 Dose: 10 meq Pregabalin (Lyrica -) 50 mg PO BID [facility] Last Admin: 08/24/16 21:31 Dose: 50 mg Propylthiouracil (Ptu -) 50 mg PO DAILY [facility] Last Admin: 08/24/16 09:49 Dose: 50 mg Ranitidine HCl (Zantac -) 150 mg PO BID [facility] Last Admin: 08/24/16 21:31 Dose: 150 mg Warfarin Sodium (Coumadin -) 2.5 mg PO DAILY@1800 [facility] - Objective Vital Signs: Vital Signs Temperature 98.2 F 08/25/16 06:00 Pulse Rate 94 H 08/25/16 06:00 Respiratory Rate 20 08/25/16 06:00 Blood Pressure 121/70 08/25/16 06:00 O2 Sat by Pulse Oximetry (%) 94 L 08/24/16 20:54 Constitutional: Yes: Well Nourished, No Distress, Calm Cardiovascular: Yes: Pulse Irregular, S1, S2. No: JVD, Gallop, Murmur Respiratory: Yes: Regular, CTA Bilaterally. No: Accessory Muscle Use, Wheezes Extremities: No: Cold Edema: No Neurological: Yes: Alert, Oriented Psychiatric: No: Agitated Labs: CBC, BMP 08/25/16 06:20 08/25/16 06:20 INR, PTT INR 2.42 (0.82-1.09) H 08/25/16 06:20 Assessment/Plan CXR: diaphragmatic hernia obscuring lung torrez Echo 06/2015: afib, nl LV/RV, mild-mod MR/TR, hi LAP, mild ao root dil MIBI 2012: no ST changes, probable breast artifact vs. AW ischemia. Nl EF PFTs 2013: no obstr, mild restr, mild decr DLCO 86 yo with h/o afib, diastolic CHF, htn, hl, h/o rheumatic fever, mild-moderate MR, Dm, meningioma, new diagnosis of multiple myeloma, subclinical hyperthyroidism on PTU who presents with anemia Afib with RVR - well controlled at "lenient rate control" targest on home regimen: DILTIAZEM (60 AM, 60 LUNCH, 30 PM) AND LOW DOSE TOPROL (25). (has h/o bradycardia and hypotension of ? etiology--stable long time on reduced med regimen) - currently holding toprol, will add back if needed. - cont coumadin (goal INR 2-3), ok with heme sob, dCHF, copd - multifactorial chronic sob (copd, diast chf, and ? related to very large hiatal hernia) - sob likely related to anemia and not volume overload. recent poor po intake and weight loss - received PRBCs here x 1 and getting IVF here for hypercalcemia. - at dry weight on this previously: 155 lbs (06/06), down to 132 on 08/01--likely wt loss due to myeloma - CXR reviewed: large hiatal hernia obscures most of L lung; diffuse prominent interstitital pattern can't exclude edema, ? similar to 11/05 when accounting for differences in technique - home regimen = bumetanide 2mg daily, receiving here--clinically euvolemic-- cont same mild-mod MR - functional, likely related to volume status - echo 06/2015 stable anemia/multiple myeloma? - hgb was 7.3, up to 9 post-PRBC, trending back down - ongoing mgm't per pmd/onc (not felt to be bleeding per prior d/w heme) hypercalcemia/multiple myeloma - on ivf and continuing bumex per renal Emphysema SEEING AGATA; SOB IMPROVED WITH REGULAR MDI USE H/O WHEEZING IN PAST--STABLE OF LATE
--- NOTE | 2016-08-25 11:15 | PN ---
Progress Note, Physician Chief Complaint: Ms Sanchez complains of abdominal pain. It is located in the RUQ and felt with certain movements and relieved by deep breathing. It feels exactly like the back pain she has. Denies cp, sob, n/v. - Current Medication List Current Medications: Active Medications Acetaminophen (Tylenol -) 650 mg PO Q4H PRN PRN Reason: FEVER OR PAIN Last Admin: 08/24/16 09:52 Dose: 650 mg Albuterol Sulfate (Ventolin 0.083% Nebulizer Soln -) 1 amp NEB Q6H PRN PRN Reason: SHORT OF BREATH/WHEEZING Last Admin: 08/24/16 19:07 Dose: 1 amp Atorvastatin Calcium (Lipitor -) 10 mg PO [facility] Last Admin: 08/24/16 21:31 Dose: 10 mg Bumetanide (Bumex -) 2 mg PO DAILY [facility] Last Admin: 08/24/16 09:51 Dose: 2 mg Cholecalciferol (Vitamin D3 -) 2,000 unit PO DAILY [facility] Last Admin: 08/24/16 09:51 Dose: 2,000 unit Diltiazem HCl (Cardizem -) 60 mg PO BID [facility] Last Admin: 08/24/16 21:31 Dose: 60 mg Docusate Sodium (Colace -) 100 mg PO BID [facility] Last Admin: 08/24/16 21:31 Dose: 100 mg Guaifenesin (Robitussin -) 10 ml PO Q6H PRN PRN Reason: COUGH Last Admin: 08/19/16 09:35 Dose: 10 ml Sodium Chloride (Normal Saline -) 1,000 mls @ 75 mls/hr IV ASDIR [facility] Last Admin: 08/25/16 06:22 Dose: 75 mls/hr Insulin Aspart (Novolog Vial Sliding Scale -) 0 vial SQ BIDAC [facility] PRN Reason: Protocol Last Admin: 08/25/16 06:22 Dose: Not Given Ipratropium [place] (Atrovent 0.02% Nebulizer -) 1 amp NEB Q6H PRN PRN Reason: WHEEZING Last Admin: 08/24/16 19:06 Dose: 1 amp Metoprolol Succinate (Toprol Xl -) 25 mg PO DAILY [facility] Last Admin: 08/24/16 09:51 Dose: 25 mg Montelukast Sodium (Singulair -) 10 mg PO [facility] Last Admin: 08/24/16 21:31 Dose: 10 mg Ondansetron HCl (Zofran Injection) 4 mg IVPB Q6H PRN PRN Reason: NAUSEA Oxycodone HCl (Roxicodone -) 2.5 mg PO Q4H PRN PRN Reason: PAIN Last Admin: 08/24/16 19:57 Dose: 2.5 mg Polyethylene Glycol (Miralax (For Daily Use) -) 17 gm PO DAILY [facility] Last Admin: 08/24/16 09:53 Dose: 17 gm Potassium Chloride (K-Dur -) 10 meq PO BID [facility] Last Admin: 08/24/16 21:31 Dose: 10 meq Pregabalin (Lyrica -) 50 mg PO BID [facility] Last Admin: 08/24/16 21:31 Dose: 50 mg Propylthiouracil (Ptu -) 50 mg PO DAILY [facility] Last Admin: 08/24/16 09:49 Dose: 50 mg Ranitidine HCl (Zantac -) 150 mg PO BID [facility] Last Admin: 08/24/16 21:31 Dose: 150 mg Warfarin Sodium (Coumadin -) 2.5 mg PO DAILY@1800 [facility] - Objective Vital Signs: Vital Signs Temperature 98.2 F 08/25/16 06:00 Pulse Rate 94 H 08/25/16 06:00 Respiratory Rate 20 08/25/16 06:00 Blood Pressure 121/70 08/25/16 06:00 O2 Sat by Pulse Oximetry (%) 94 L 08/24/16 20:54 Constitutional: Yes: No Distress, Calm Cardiovascular: Yes: Pulse Irregular. No: Tachycardia, Gallop, Murmur, Rub Respiratory: Yes: Regular, CTA Bilaterally, Other (reproducible rib pain). No: Rales, Rhonchi, Wheezes Gastrointestinal: Yes: Normal Bowel Sounds, Soft. No: Distention, Tenderness Extremities: Yes: WNL Edema: No Labs: CBC, BMP 08/25/16 06:20 08/25/16 06:20 INR, PTT INR 2.42 (0.82-1.09) H 08/25/16 06:20 Problem List - Problems (1) Anemia Code(s): D64.9 - ANEMIA, UNSPECIFIED Qualifiers: Anemia type: unspecified type Qualified Code(s): D64.9 - Anemia, unspecified (2) Multiple myeloma Code(s): C90.00 - MULTIPLE MYELOMA NOT HAVING ACHIEVED REMISSION Qualifiers: Multiple myeloma remission status: not in remission Qualified Code(s ): C90.00 - Multiple myeloma not having achieved remission (3) Atrial fibrillation Code(s): I48.91 - UNSPECIFIED ATRIAL FIBRILLATION Qualifiers: Atrial fibrillation type: chronic Qualified Code(s): I48.2 - Chronic atrial fibrillation (4) COPD (chronic obstructive pulmonary disease) Code(s): J44.9 - CHRONIC OBSTRUCTIVE PULMONARY DISEASE, UNSPECIFIED (5) Congestive heart failure Code(s): I50.9 - HEART FAILURE, UNSPECIFIED (6) Diabetes mellitus Code(s): E11.9 - TYPE 2 DIABETES MELLITUS WITHOUT COMPLICATIONS (7) Hyperlipidemia Code(s): E78.5 - HYPERLIPIDEMIA, UNSPECIFIED (8) CHEL (acute kidney injury) Code(s): N17.9 - ACUTE KIDNEY FAILURE, UNSPECIFIED (9) Hypercalcemia Code(s): E83.52 - HYPERCALCEMIA Assessment/Plan (1) Anemia Assessment/Plan: -s/p transfusion -will transfuse another unit today -secondary to MM Code(s): D64.9 - ANEMIA, UNSPECIFIED Qualifiers: Anemia type: unspecified type Qualified Code(s): D64.9 - Anemia, unspecified (2) Multiple myeloma Assessment/Plan: -discussed with family, decided to take her home -s/p zometa -pain control, now having rib pain as well as back pain Code(s): C90.00 - MULTIPLE MYELOMA NOT HAVING ACHIEVED REMISSION Qualifiers: Multiple myeloma remission status: not in remission Qualified Code(s ): C90.00 - Multiple myeloma not having achieved remission (3) Atrial fibrillation Assessment/Plan: -rate controlled -change to coumadin 2.5mg today Code(s): I48.91 - UNSPECIFIED ATRIAL FIBRILLATION Qualifiers: Atrial fibrillation type: chronic Qualified Code(s): I48.2 - Chronic atrial fibrillation (4) COPD (chronic obstructive pulmonary disease) Assessment/Plan: -stable Code(s): J44.9 - CHRONIC OBSTRUCTIVE PULMONARY DISEASE, UNSPECIFIED (5) Congestive heart failure Assessment/Plan: -not in exacerbation -cardiology following -placed on bumex Code(s): I50.9 - HEART FAILURE, UNSPECIFIED (6) Diabetes mellitus Assessment/Plan: -continue home regimen -FSBS and SSI Code(s): E11.9 - TYPE 2 DIABETES MELLITUS WITHOUT COMPLICATIONS (7) Hyperlipidemia Assessment/Plan: -continue lipitor Code(s): E78.5 - HYPERLIPIDEMIA, UNSPECIFIED (8) CHEL (acute kidney injury) Assessment/Plan: -resolved Code(s): N17.9 - ACUTE KIDNEY FAILURE, UNSPECIFIED (9) Hypercalcemia -s/p zometa Dispo -possible discharge in next 24 hours
[2016-08-25] MEDS: BUMETANIDE 1 MG TABLET PO SCH (11:40)
[2016-08-25] MEDS: DOCUSATE SODIUM 100 MG CAPSULE (FP) PO SCH ×2 (11:40→21:57)
[2016-08-25] MEDS: PREGABALIN 50 MG CAPSULE PO SCH ×2 (11:41→21:57)
[2016-08-25] MEDS: dilTIAZem HCL 60 MG TABLET (FP) PO SCH ×2 (11:41→22:01)
[2016-08-25] MEDS: POTASSIUM CHLORIDE TABS 10 MEQ TABLET.ER (FP) PO SCH ×2 (11:41→21:57)
[2016-08-25] MEDS: oxyCODONE HCL 5 MG TABLET PO PRN ×2 (11:42→17:17)
[2016-08-25] MEDS: CHOLECALCIFEROL (VITAMIN D3) 1,000 UNIT TABLET (FP) PO SCH (11:47)
[2016-08-25] MEDS: METOPROLOL SUCCINATE 25 MG TAB.SR.24H (FP) PO SCH (11:47)
[2016-08-25] MEDS: RANITIDINE HCL 150 MG TABLET (FP) PO SCH ×2 (11:47→21:57)
[2016-08-25] MEDS ORDERED: PT OWN MED DRAWER 7, Y5N ONE (12:28)
[2016-08-25] MEDS ORDERED: SODIUM CHLORIDE 1,000 ML IV SCH (16:05)
--- NOTE | 2016-08-25 16:05 | PN ---
Progress Note, Physician History of Present Illness: Pt seen and examined at bedside. She is awake and appears comfortable. She complains of shortness of breath at night. - Current Medication List Current Medications: Active Medications Acetaminophen (Tylenol -) 650 mg PO Q4H PRN PRN Reason: FEVER OR PAIN Last Admin: 08/24/16 09:52 Dose: 650 mg Albuterol Sulfate (Ventolin 0.083% Nebulizer Soln -) 1 amp NEB Q6H PRN PRN Reason: SHORT OF BREATH/WHEEZING Last Admin: 08/24/16 19:07 Dose: 1 amp Atorvastatin Calcium (Lipitor -) 10 mg PO HS [facility] Last Admin: 08/24/16 21:31 Dose: 10 mg Bumetanide (Bumex -) 2 mg PO DAILY [facility] Last Admin: 08/25/16 11:40 Dose: 2 mg Cholecalciferol (Vitamin D3 -) 2,000 unit PO DAILY [facility] Last Admin: 08/25/16 11:47 Dose: 2,000 unit Diltiazem HCl (Cardizem -) 60 mg PO BID [facility] Last Admin: 08/25/16 11:41 Dose: 60 mg Docusate Sodium (Colace -) 100 mg PO BID [facility] Last Admin: 08/25/16 11:40 Dose: 100 mg Guaifenesin (Robitussin -) 10 ml PO Q6H PRN PRN Reason: COUGH Last Admin: 08/19/16 09:35 Dose: 10 ml Sodium Chloride (Normal Saline -) 1,000 mls @ 75 mls/hr IV ASDIR [facility] Last Admin: 08/25/16 06:22 Dose: 75 mls/hr Insulin Aspart (Novolog Vial Sliding Scale -) 0 vial SQ BIDAC [facility] PRN Reason: Protocol Last Admin: 08/25/16 06:22 Dose: Not Given Ipratropium [place] (Atrovent 0.02% Nebulizer -) 1 amp NEB Q6H PRN PRN Reason: WHEEZING Last Admin: 08/24/16 19:06 Dose: 1 amp Metoprolol Succinate (Toprol Xl -) 25 mg PO DAILY [facility] Last Admin: 08/25/16 11:47 Dose: 25 mg Montelukast Sodium (Singulair -) 10 mg PO HS [facility] Last Admin: 08/24/16 21:31 Dose: 10 mg Ondansetron HCl (Zofran Injection) 4 mg IVPB Q6H PRN PRN Reason: NAUSEA Oxycodone HCl (Roxicodone -) 2.5 mg PO Q4H PRN PRN Reason: PAIN Last Admin: 08/25/16 11:42 Dose: 2.5 mg Polyethylene Glycol (Miralax (For Daily Use) -) 17 gm PO DAILY [facility] Last Admin: 08/24/16 09:53 Dose: 17 gm Potassium Chloride (K-Dur -) 10 meq PO BID [facility] Last Admin: 08/25/16 11:41 Dose: 10 meq Pregabalin (Lyrica -) 50 mg PO BID [facility] Last Admin: 08/25/16 11:41 Dose: 50 mg Propylthiouracil (Ptu -) 50 mg PO DAILY [facility] Last Admin: 08/24/16 09:49 Dose: 50 mg Ranitidine HCl (Zantac -) 150 mg PO BID [facility] Last Admin: 08/25/16 11:47 Dose: 150 mg Warfarin Sodium (Coumadin -) 2.5 mg PO DAILY@1800 [facility] - Objective Vital Signs: Vital Signs Temperature 98.2 F 08/25/16 14:26 Pulse Rate 103 H 08/25/16 14:26 Respiratory Rate 20 08/25/16 14:26 Blood Pressure 140/86 08/25/16 14:26 O2 Sat by Pulse Oximetry (%) 97 08/25/16 09:00 Constitutional: Yes: Calm Eyes: Yes: Conjunctiva Clear HENT: Yes: Atraumatic Cardiovascular: Yes: S1, S2 Respiratory: Yes: On Nasal O2, Wheezes Gastrointestinal: Yes: Soft Genitourinary: Yes: Incontinence Musculoskeletal: Yes: Muscle Weakness Edema: No Neurological: Yes: Oriented Labs: CBC, BMP 08/25/16 06:20 08/25/16 06:20 INR, PTT INR 2.42 (0.82-1.09) H 08/25/16 06:20 Problem List - Problems (1) Anemia Code(s): D64.9 - ANEMIA, UNSPECIFIED Qualifiers: Anemia type: unspecified type Qualified Code(s): D64.9 - Anemia, unspecified (2) Confusion and disorientation Code(s): F99 - MENTAL DISORDER, NOT OTHERWISE SPECIFIED (3) Hypercalcemia Code(s): E83.52 - HYPERCALCEMIA (4) Atrial fibrillation Code(s): I48.91 - UNSPECIFIED ATRIAL FIBRILLATION Qualifiers: Atrial fibrillation type: chronic Qualified Code(s): I48.2 - Chronic atrial fibrillation (5) COPD (chronic obstructive pulmonary disease) Code(s): J44.9 - CHRONIC OBSTRUCTIVE PULMONARY DISEASE, UNSPECIFIED (6) Congestive heart failure Code(s): I50.9 - HEART FAILURE, UNSPECIFIED (7) Diabetes mellitus Code(s): E11.9 - TYPE 2 DIABETES MELLITUS WITHOUT COMPLICATIONS (8) Meningioma Code(s): D32.9 - BENIGN NEOPLASM OF MENINGES, UNSPECIFIED Assessment/Plan Current Medications Generic Name Dose Route Start Last Admin Trade Name Freq PRN Reason Stop Dose Admin Acetaminophen 650 mg 08/14/16 16:39 08/24/16 09:52 Tylenol - PO 650 mg Q4H PRN Administration FEVER OR PAIN Albuterol Sulfate 1 amp 08/14/16 16:39 08/24/16 19:07 Ventolin 0.083% Nebulizer Soln - NEB 1 amp Q6H PRN Administration SHORT OF BREATH/WHEEZING Atorvastatin Calcium 10 mg 08/14/16 22:00 08/24/16 21:31 Lipitor - PO 10 mg HS [facility] Administration Bumetanide 2 mg 08/21/16 17:00 08/25/16 11:40 Bumex - PO 2 mg DAILY [facility] Administration Cholecalciferol 2,000 unit 08/15/16 10:00 08/25/16 11:47 Vitamin D3 - PO 2,000 unit DAILY [facility] Administration Diltiazem HCl 60 mg 08/14/16 22:00 08/25/16 11:41 Cardizem - PO 60 mg BID [facility] Administration Docusate Sodium 100 mg 08/14/16 22:00 08/25/16 11:40 Colace - PO 100 mg BID [facility] Administration Guaifenesin 10 ml 08/17/16 14:14 08/19/16 09:35 Robitussin - PO 10 ml Q6H PRN Administration COUGH Sodium Chloride 1,000 mls @ 75 mls/hr 08/23/16 13:10 08/25/16 06:22 Normal Saline - IV 75 mls/hr ASDIR [facility] Administration Insulin Aspart 0 vial 08/15/16 07:00 08/25/16 06:22 Novolog Vial Sliding Scale - SQ Not Given BIDAC [facility] Protocol Ipratropium [place] 1 amp 08/14/16 16:39 08/24/16 19:06 Atrovent 0.02% Nebulizer - NEB 1 amp Q6H PRN Administration WHEEZING Metoprolol Succinate 25 mg 08/15/16 10:00 08/25/16 11:47 Toprol Xl - PO 25 mg DAILY [facility] Administration Montelukast Sodium 10 mg 08/14/16 22:00 08/24/16 21:31 Singulair - PO 10 mg HS [facility] Administration Ondansetron HCl 4 mg 08/14/16 16:39 Zofran Injection IVPB Q6H PRN NAUSEA Oxycodone HCl 2.5 mg 08/18/16 12:55 08/25/16 11:42 Roxicodone - PO 2.5 mg Q4H PRN Administration PAIN Polyethylene Glycol 17 gm 08/15/16 10:00 08/24/16 09:53 Miralax (For Daily Use) - PO 17 gm DAILY [facility] Administration Potassium Chloride 10 meq 08/16/16 13:45 08/25/16 11:41 K-Dur - PO 10 meq BID [facility] Administration Pregabalin 50 mg 08/14/16 22:00 08/25/16 11:41 Lyrica - PO 50 mg BID [facility] Administration Propylthiouracil 50 mg 08/15/16 10:00 08/24/16 09:49 Ptu - PO 50 mg DAILY [facility] Administration Ranitidine HCl 150 mg 08/14/16 22:00 08/25/16 11:47 Zantac - PO 150 mg BID [facility] Administration Warfarin Sodium 2.5 mg 08/25/16 18:00 Coumadin - PO DAILY@1800 [facility] Impression 1. hypercalcemia 2. CHF 3. hx meningioma 4. DM 5. HTN 6. r/o myeloma 7. anemia Plan - calcium level is improving - decrease rate of fluids further - repeat labs in am - pt received Zoledronic acid on the - will follow Dr Rolle
[2016-08-25] MEDS: WARFARIN NA 2.5 MG TABLET (FP) PO SCH (17:13)
[2016-08-25] MEDS: guaiFENesin 200 MG/10 ML 10 ML UNIT-DOSE CUPS PO PRN (17:13)
[2016-08-25] MEDS: PROPYLTHIOURACIL 50 MG TABLET (UD) PO SCH (17:13)
[2016-08-25] MEDS: POLYETHYLENE GLYCOL 3350 119 GM BTL PO SCH (17:24)
[2016-08-25] MEDS: IPRATROPIUM BR 0.02% 0.5 MG/2.5 ML VIAL.NEB. NEB PRN (19:45)
[2016-08-25] MEDS: ALBUTEROL SO4 0.083% IH SOL 2.5 MG/3 ML VIAL.NEB. NEB PRN (19:46)
[2016-08-25] MEDS ORDERED: FUROSEMIDE 40 MG/4 ML INJECTABLE VIAL IVPUSH ONE (20:30)
[2016-08-25] MEDS: ATORVASTATIN CA 10 MG TABLET (FP) PO SCH (21:57)
[2016-08-25] MEDS: MONTELUKAST NA 10 MG TABLET PO SCH (21:57)
[2016-08-26] MEDS: oxyCODONE HCL 5 MG TABLET PO PRN ×3 (04:15→21:57)
[2016-08-26] MEDS: INSULIN SLIDING SCALE (NOVOLOG) 1 VIAL SQ SCH ×2 (06:03→18:22)
[2016-08-26 07:33] LABS: INR 2.42 (0.82-1.09); PROTHROMBIN TIME (PATIENT) 27.1 SEC (9.98-11.88)
[2016-08-26 09:22] LABS: ALBUMIN 2.4 g/dl (3.4-5.0); BILIRUBIN,TOTAL 0.6 mg/dL (0.2-1.0); CALCIUM 8.3 mg/dL (8.5-10.1); COCKROFT - GAULT 33.6855; CREATININE 1.2 mg/dL (0.55-1.02); TOT PROT 10.9 g/dl (6.4-8.2)
[2016-08-26] MEDS: DOCUSATE SODIUM 100 MG CAPSULE (FP) PO SCH ×2 (09:56→21:58)
[2016-08-26] MEDS: BUMETANIDE 1 MG TABLET PO SCH (09:56)
[2016-08-26] MEDS: dilTIAZem HCL 60 MG TABLET (FP) PO SCH ×2 (09:56→21:58)
[2016-08-26] MEDS: PREGABALIN 50 MG CAPSULE PO SCH ×2 (09:56→21:58)
[2016-08-26] MEDS: PROPYLTHIOURACIL 50 MG TABLET (UD) PO SCH (09:56)
[2016-08-26] MEDS: CHOLECALCIFEROL (VITAMIN D3) 1,000 UNIT TABLET (FP) PO SCH (09:56)
[2016-08-26] MEDS: METOPROLOL SUCCINATE 25 MG TAB.SR.24H (FP) PO SCH (09:56)
[2016-08-26] MEDS: POTASSIUM CHLORIDE TABS 10 MEQ TABLET.ER (FP) PO SCH ×2 (09:56→21:58)
[2016-08-26] MEDS: RANITIDINE HCL 150 MG TABLET (FP) PO SCH ×2 (09:56→21:58)
[2016-08-26] MEDS: POLYETHYLENE GLYCOL 3350 119 GM BTL PO SCH (09:57)
--- NOTE | 2016-08-26 13:14 | DS ---
Physical Examination Vital Signs: Vital Signs Temperature 98 F 08/26/16 05:42 Pulse Rate 87 08/26/16 10:25 Respiratory Rate 20 08/26/16 05:42 Blood Pressure 98/51 08/26/16 05:42 O2 Sat by Pulse Oximetry (%) 96 08/26/16 10:25 Constitutional: Yes: Well Nourished, No Distress, Calm Cardiovascular: Yes: Regular Rate and Rhythm. No: Gallop, Murmur, Rub Respiratory: Yes: Regular, CTA Bilaterally. No: Rales, Rhonchi, Wheezes Gastrointestinal: Yes: Normal Bowel Sounds, Soft. No: Distention, Tenderness Extremities: Yes: WNL Edema: No Labs: CBC, BMP 08/25/16 06:20 08/26/16 06:00 Discharge Summary Reason For Visit: ANEMIA; MULTIPLE MYELOMA Current Active Problems CHEL (acute kidney injury) (Acute) Anemia (Acute) Confusion and disorientation (Acute) Fall (Acute) Hypercalcemia (Acute) Multiple myeloma (Acute) Hospital Course: (1) Anemia Code(s): D64.9 - ANEMIA, UNSPECIFIED Qualifiers: Anemia type: unspecified type Qualified Code(s): D64.9 - Anemia, unspecified (2) Multiple myeloma Code(s): C90.00 - MULTIPLE MYELOMA NOT HAVING ACHIEVED REMISSION Qualifiers: Multiple myeloma remission status: not in remission Qualified Code(s ): C90.00 - Multiple myeloma not having achieved remission (3) Atrial fibrillation Code(s): I48.91 - UNSPECIFIED ATRIAL FIBRILLATION Qualifiers: Atrial fibrillation type: chronic Qualified Code(s): I48.2 - Chronic atrial fibrillation (4) COPD (chronic obstructive pulmonary disease) Code(s): J44.9 - CHRONIC OBSTRUCTIVE PULMONARY DISEASE, UNSPECIFIED (5) Congestive heart failure Code(s): I50.9 - HEART FAILURE, UNSPECIFIED (6) Diabetes mellitus Code(s): E11.9 - TYPE 2 DIABETES MELLITUS WITHOUT COMPLICATIONS (7) Hyperlipidemia Code(s): E78.5 - HYPERLIPIDEMIA, UNSPECIFIED (8) CHEL (acute kidney injury) Code(s): N17.9 - ACUTE KIDNEY FAILURE, UNSPECIFIED (9) Hypercalcemia Code(s): E83.52 - HYPERCALCEMIA Ms Sanchez is a very pleasant 86 year old female who came in with symptomatic anemia secondary to multiple myeloma that was complicated by hypercalcemia. She was admitted to the hospital and transfused. GI and hematology were consulted. Family and patient declined GI evaluation. Hematology continued to follow. She was seen by cardiology for CHF and atrial fibrillation. Her coumadin was held originally secondary to anemia but it was restarted after approval by hematology. She is currently therapeutic. Her bumex was held secondary to CHEL, this resolved with blood and hydration. Her bumex is now restated as well. She was found to have hypercalcemia. She was seen by nephrology and hydrated and diuresed. She was given zometa. Discussion with family about dispo planning occurred. After discussion of the options it was decided that she would be most comfortable at home with VNS. She is currently stable for discharge. 40 minutes spent in preparation of this discharge Condition: Stable - Instructions Diet, Activity, Other Instructions: regular diet. Up with assistance, patient should always walk with assistance Referrals: Carolina Mckinney MD [Staff Physician] - Dallas Avalos MD [Primary Care Provider] - Disposition: VNS/HOME HEALTH CARE - Home Medications Comprehensive Discharge Medication List: Ambulatory Orders Atorvastatin Ca [Lipitor] 20 mg PO HS 08/14/16 Bumetanide [Bumex -] 2 mg PO DAILY 08/14/16 Diltiazem [Cardizem -] 60 mg PO BID 08/14/16 Ergocalciferol (Vitamin D2) [Vitamin D2] 2,000 unit PO DAILY 08/14/16 Metformin HCl [Metformin HCl ER] 500 mg PO DAILY 08/14/16 Metoprolol Tartrate [Lopressor -] 25 mg PO DAILY 08/14/16 Montelukast Na [Singulair -] 10 mg PO HS 08/14/16 Potassium Chloride [Klor-Con] 20 meq PO DAILY 08/14/16 Pregabalin [Lyrica -] 50 mg PO BID 08/14/16 Propylthiouracil 50 mg PO DAILY 08/14/16 Ranitidine [Zantac -] 150 mg PO BID 08/14/16 Albuterol 0.083% Nebulizer [place] [Ventolin 0.083% Nebulizer Soln -] 1 amp NEB Q6H PRN #30 amp 08/26/16 Ipratropium 0.02% Nebulizer [Atrovent 0.02% Nebulizer -] 1 amp NEB Q6H PRN #30 amp 08/26/16 Oxycodone HCl [Roxicodone -] 2.5 mg PO Q4H PRN #60 tablet MDD 30mg 08/26/16 Warfarin Na [Coumadin -] 2.5 mg PO DAILY@1800 tablet 08/26/16
--- NOTE | 2016-08-26 14:18 | PN ---
Progress Note, Physician History of Present Illness: Pt seen and examined at bedside. She appears comfortable. - Current Medication List Current Medications: Active Medications Acetaminophen (Tylenol -) 650 mg PO Q4H PRN PRN Reason: FEVER OR PAIN Last Admin: 08/24/16 09:52 Dose: 650 mg Albuterol Sulfate (Ventolin 0.083% Nebulizer Soln -) 1 amp NEB Q6H PRN PRN Reason: SHORT OF BREATH/WHEEZING Last Admin: 08/25/16 19:46 Dose: 1 amp Atorvastatin Calcium (Lipitor -) 10 mg PO HS [facility] Last Admin: 08/25/16 21:57 Dose: 10 mg Bumetanide (Bumex -) 2 mg PO DAILY [facility] Last Admin: 08/26/16 09:56 Dose: 2 mg Cholecalciferol (Vitamin D3 -) 2,000 unit PO DAILY [facility] Last Admin: 08/26/16 09:56 Dose: 2,000 unit Diltiazem HCl (Cardizem -) 60 mg PO BID [facility] Last Admin: 08/26/16 09:56 Dose: 60 mg Docusate Sodium (Colace -) 100 mg PO BID [facility] Last Admin: 08/26/16 09:56 Dose: 100 mg Guaifenesin (Robitussin -) 10 ml PO Q6H PRN PRN Reason: COUGH Last Admin: 08/25/16 17:13 Dose: 10 ml Insulin Aspart (Novolog Vial Sliding Scale -) 0 vial SQ BIDAC [facility] PRN Reason: Protocol Last Admin: 08/26/16 06:03 Dose: Not Given Ipratropium [place] (Atrovent 0.02% Nebulizer -) 1 amp NEB Q6H PRN PRN Reason: WHEEZING Last Admin: 08/25/16 19:45 Dose: 1 amp Metoprolol Succinate (Toprol Xl -) 25 mg PO DAILY [facility] Last Admin: 08/26/16 09:56 Dose: 25 mg Montelukast Sodium (Singulair -) 10 mg PO HS [facility] Last Admin: 08/25/16 21:57 Dose: 10 mg Ondansetron HCl (Zofran Injection) 4 mg IVPB Q6H PRN PRN Reason: NAUSEA Oxycodone HCl (Roxicodone -) 2.5 mg PO Q4H PRN PRN Reason: PAIN Polyethylene Glycol (Miralax (For Daily Use) -) 17 gm PO DAILY [facility] Last Admin: 08/26/16 09:57 Dose: 17 gm Potassium Chloride (K-Dur -) 10 meq PO BID [facility] Last Admin: 08/26/16 09:56 Dose: 10 meq Pregabalin (Lyrica -) 50 mg PO BID [facility] Last Admin: 08/26/16 09:56 Dose: 50 mg Propylthiouracil (Ptu -) 50 mg PO DAILY [facility] Last Admin: 08/26/16 09:56 Dose: 50 mg Ranitidine HCl (Zantac -) 150 mg PO BID [facility] Last Admin: 08/26/16 09:56 Dose: 150 mg Warfarin Sodium (Coumadin -) 2.5 mg PO DAILY@1800 [facility] Last Admin: 08/25/16 17:13 Dose: 2.5 mg - Objective Vital Signs: Vital Signs Temperature 98 F 08/26/16 05:42 Pulse Rate 102 H 08/26/16 14:03 Respiratory Rate 20 08/26/16 05:42 Blood Pressure 98/51 08/26/16 05:42 O2 Sat by Pulse Oximetry (%) 96 08/26/16 14:03 Constitutional: Yes: Calm Eyes: Yes: Conjunctiva Clear HENT: Yes: Atraumatic Neck: Yes: Supple Cardiovascular: Yes: S1, S2 Respiratory: Yes: Diminished, On Nasal O2 Gastrointestinal: Yes: Soft Genitourinary: Yes: WNL Musculoskeletal: Yes: Muscle Weakness Edema: No Neurological: Yes: Oriented Labs: CBC, BMP 08/25/16 06:20 08/26/16 06:00 INR, PTT INR 2.42 (0.82-1.09) H 08/26/16 06:00 Problem List - Problems (1) Anemia Code(s): D64.9 - ANEMIA, UNSPECIFIED Qualifiers: Anemia type: unspecified type Qualified Code(s): D64.9 - Anemia, unspecified (2) Confusion and disorientation Code(s): F99 - MENTAL DISORDER, NOT OTHERWISE SPECIFIED (3) Hypercalcemia Code(s): E83.52 - HYPERCALCEMIA (4) Atrial fibrillation Code(s): I48.91 - UNSPECIFIED ATRIAL FIBRILLATION Qualifiers: Atrial fibrillation type: chronic Qualified Code(s): I48.2 - Chronic atrial fibrillation (5) COPD (chronic obstructive pulmonary disease) Code(s): J44.9 - CHRONIC OBSTRUCTIVE PULMONARY DISEASE, UNSPECIFIED (6) Congestive heart failure Code(s): I50.9 - HEART FAILURE, UNSPECIFIED (7) Diabetes mellitus Code(s): E11.9 - TYPE 2 DIABETES MELLITUS WITHOUT COMPLICATIONS (8) Meningioma Code(s): D32.9 - BENIGN NEOPLASM OF MENINGES, UNSPECIFIED Assessment/Plan Current Medications Generic Name Dose Route Start Last Admin Trade Name Freq PRN Reason Stop Dose Admin Acetaminophen 650 mg 08/14/16 16:39 08/24/16 09:52 Tylenol - PO 650 mg Q4H PRN Administration FEVER OR PAIN Albuterol Sulfate 1 amp 08/14/16 16:39 08/25/16 19:46 Ventolin 0.083% Nebulizer Soln - NEB 1 amp Q6H PRN Administration SHORT OF BREATH/WHEEZING Atorvastatin Calcium 10 mg 08/14/16 22:00 08/25/16 21:57 Lipitor - PO 10 mg HS [facility] Administration Bumetanide 2 mg 08/21/16 17:00 08/26/16 09:56 Bumex - PO 2 mg DAILY [facility] Administration Cholecalciferol 2,000 unit 08/15/16 10:00 08/26/16 09:56 Vitamin D3 - PO 2,000 unit DAILY [facility] Administration Diltiazem HCl 60 mg 08/14/16 22:00 08/26/16 09:56 Cardizem - PO 60 mg BID [facility] Administration Docusate Sodium 100 mg 08/14/16 22:00 08/26/16 09:56 Colace - PO 100 mg BID [facility] Administration Guaifenesin 10 ml 08/17/16 14:14 08/25/16 17:13 Robitussin - PO 10 ml Q6H PRN Administration COUGH Insulin Aspart 0 vial 08/15/16 07:00 08/26/16 06:03 Novolog Vial Sliding Scale - SQ Not Given BIDAC [facility] Protocol Ipratropium [place] 1 amp 08/14/16 16:39 08/25/16 19:45 Atrovent 0.02% Nebulizer - NEB 1 amp Q6H PRN Administration WHEEZING Metoprolol Succinate 25 mg 08/15/16 10:00 08/26/16 09:56 Toprol Xl - PO 25 mg DAILY [facility] Administration Montelukast Sodium 10 mg 08/14/16 22:00 08/25/16 21:57 Singulair - PO 10 mg HS [facility] Administration Ondansetron HCl 4 mg 08/14/16 16:39 Zofran Injection IVPB Q6H PRN NAUSEA Oxycodone HCl 2.5 mg 08/26/16 13:07 Roxicodone - PO Q4H PRN PAIN Polyethylene Glycol 17 gm 08/15/16 10:00 08/26/16 09:57 Miralax (For Daily Use) - PO 17 gm DAILY [facility] Administration Potassium Chloride 10 meq 08/16/16 13:45 08/26/16 09:56 K-Dur - PO 10 meq BID [facility] Administration Pregabalin 50 mg 08/14/16 22:00 08/26/16 09:56 Lyrica - PO 50 mg BID [facility] Administration Propylthiouracil 50 mg 08/15/16 10:00 08/26/16 09:56 Ptu - PO 50 mg DAILY [facility] Administration Ranitidine HCl 150 mg 08/14/16 22:00 08/26/16 09:56 Zantac - PO 150 mg BID [facility] Administration Warfarin Sodium 2.5 mg 08/25/16 18:00 08/25/16 17:13 Coumadin - PO 2.5 mg DAILY@1800 [facility] Administration Impression 1. hypercalcemia 2. CHF 3. hx meningioma 4. DM 5. HTN 6. r/o myeloma 7. anemia Plan - calcium level is stabilizing - called and discussed with cardio - decrease bumex to 1 mg for now as she is off of fluids - will need to assess as outpt for diuretics depending on her volume status - I also discussed the diuretics with her son who is the primary caregiver - repeat labs in am - pt received Zoledronic acid on the - will follow Dr Rolle
[2016-08-26] MEDS ORDERED: BUMETANIDE 1 MG TABLET PO SCH (14:22)
[2016-08-26] MEDS: IPRATROPIUM BR 0.02% 0.5 MG/2.5 ML VIAL.NEB. NEB PRN ×2 (14:40→22:44)
[2016-08-26] MEDS: ALBUTEROL SO4 0.083% IH SOL 2.5 MG/3 ML VIAL.NEB. NEB PRN ×2 (14:40→22:44)
--- NOTE | 2016-08-26 16:32 | PN ---
Progress Note (short form) - Note Progress Note: Chief Complaint: afib, chf History of Present Illness: no sob, orthopnea no cp no palpit. intermittently confused. poor po intake. Current Medications Acetaminophen (Tylenol -) 650 mg PO Q4H PRN PRN Reason: FEVER OR PAIN Last Admin: 08/24/16 09:52 Dose: 650 mg Albuterol Sulfate (Ventolin 0.083% Nebulizer Soln -) 1 amp NEB Q6H PRN PRN Reason: SHORT OF BREATH/WHEEZING Last Admin: 08/25/16 19:46 Dose: 1 amp Atorvastatin Calcium (Lipitor -) 10 mg PO HS [facility] Last Admin: 08/25/16 21:57 Dose: 10 mg Bumetanide (Bumex -) 1 mg PO DAILY [facility] Cholecalciferol (Vitamin D3 -) 2,000 unit PO DAILY [facility] Last Admin: 08/26/16 09:56 Dose: 2,000 unit Diltiazem HCl (Cardizem -) 60 mg PO BID [facility] Last Admin: 08/26/16 09:56 Dose: 60 mg Docusate Sodium (Colace -) 100 mg PO BID [facility] Last Admin: 08/26/16 09:56 Dose: 100 mg Guaifenesin (Robitussin -) 10 ml PO Q6H PRN PRN Reason: COUGH Last Admin: 08/25/16 17:13 Dose: 10 ml Insulin Aspart (Novolog Vial Sliding Scale -) 0 vial SQ BIDAC [facility] PRN Reason: Protocol Last Admin: 08/26/16 06:03 Dose: Not Given Ipratropium [place] (Atrovent 0.02% Nebulizer -) 1 amp NEB Q6H PRN PRN Reason: WHEEZING Last Admin: 08/25/16 19:45 Dose: 1 amp Metoprolol Succinate (Toprol Xl -) 25 mg PO DAILY [facility] Last Admin: 08/26/16 09:56 Dose: 25 mg Montelukast Sodium (Singulair -) 10 mg PO HS [facility] Last Admin: 08/25/16 21:57 Dose: 10 mg Ondansetron HCl (Zofran Injection) 4 mg IVPB Q6H PRN PRN Reason: NAUSEA Oxycodone HCl (Roxicodone -) 2.5 mg PO Q4H PRN PRN Reason: PAIN Last Admin: 08/26/16 14:20 Dose: 2.5 mg Polyethylene Glycol (Miralax (For Daily Use) -) 17 gm PO DAILY [facility] Last Admin: 08/26/16 09:57 Dose: 17 gm Potassium Chloride (K-Dur -) 10 meq PO BID [facility] Last Admin: 08/26/16 09:56 Dose: 10 meq Pregabalin (Lyrica -) 50 mg PO BID [facility] Last Admin: 08/26/16 09:56 Dose: 50 mg Propylthiouracil (Ptu -) 50 mg PO DAILY [facility] Last Admin: 08/26/16 09:56 Dose: 50 mg Ranitidine HCl (Zantac -) 150 mg PO BID [facility] Last Admin: 08/26/16 09:56 Dose: 150 mg Warfarin Sodium (Coumadin -) 2.5 mg PO DAILY@1800 [facility] Last Admin: 08/25/16 17:13 Dose: 2.5 mg Vital Signs - 24 hr 08/25/16 08/25/16 08/25/16 18:00 20:43 20:44 Temperature 99.4 F 98.8 F Pulse Rate 55 L 104 H Respiratory 20 20 20 Rate Blood Pressure 117/75 121/69 O2 Sat by Pulse 97 Oximetry (%) 08/26/16 08/26/16 08/26/16 01:53 05:42 09:00 Temperature 98.5 F 98 F Pulse Rate 92 H 86 Respiratory 20 20 Rate Blood Pressure 106/82 98/51 O2 Sat by Pulse 94 L Oximetry (%) 08/26/16 08/26/16 08/26/16 10:25 14:03 15:07 Temperature 98.3 F Pulse Rate 87 102 H 100 H Respiratory 20 Rate Blood Pressure 98/41 O2 Sat by Pulse 96 96 Oximetry (%) Intake & Output 08/24/16 08/25/16 08/26/16 08/27/16 07:59 07:59 07:59 07:59 Intake Total 3162 2544 1200 350 Balance 3162 2544 1200 350 Weight 142 lb 144 lb 3.2 oz 145 lb 3.2 oz Constitutional: Yes: Well Nourished, No Distress, Calm Cardiovascular: Yes: Pulse Irregular, S1, S2. No: JVD, Gallop, Murmur Respiratory: Yes: Regular, CTA Bilaterally. No: Accessory Muscle Use, Wheezes Extremities: No: Cold Edema: No Neurological: Yes: Alert, Oriented Psychiatric: No: Agitated Labs: CBC, BMP 08/25/16 06:20 08/26/16 06:00 Laboratory Tests 08/25/16 08/26/16 08/26/16 06:20 06:00 06:00 INR 2.42 H Creatinine 1.0 Albumin 2.4 L Assessment/Plan CXR: diaphragmatic hernia obscuring lung torrez Echo 06/2015: afib, nl LV/RV, mild-mod MR/TR, hi LAP, mild ao root dil MIBI 2012: no ST changes, probable breast artifact vs. AW ischemia. Nl EF PFTs 2013: no obstr, mild restr, mild decr DLCO 86 yo with h/o afib, diastolic CHF, htn, hl, h/o rheumatic fever, mild-moderate MR, Dm, meningioma, new diagnosis of multiple myeloma, subclinical hyperthyroidism on PTU who presents with anemia Afib with RVR - well controlled at "lenient rate control" targest on home regimen: DILTIAZEM (60 AM, 60 LUNCH, 30 PM) AND LOW DOSE TOPROL (25). (has h/o bradycardia and hypotension of ? etiology--stable long time on reduced med regimen) - currently holding toprol, will add back if needed. - cont coumadin (goal INR 2-3), ok with heme sob, dCHF, copd - multifactorial chronic sob (copd, diast chf, and ? related to very large hiatal hernia) - sob likely related to anemia and not volume overload. recent poor po intake and weight loss - received PRBCs here x 1 and getting IVF here for hypercalcemia. - at dry weight on this previously: 155 lbs (06/06), down to 132 on 08/01--likely wt loss due to myeloma - CXR reviewed: large hiatal hernia obscures most of L lung; diffuse prominent interstitital pattern can't exclude edema, ? similar to 11/05 when accounting for differences in technique - home regimen = bumetanide 2mg daily, receiving here--clinically euvolemic-- cont same - 08/26: s/p IV lasix yesterday after PRBC's. Slight cr bump today. Fluids now being stopped and plan is for d/c. Discussed with renal and concern for volume depletion on bumex alone without IVF. Poor po intake and intermittently altered. Will plan on d/c off bumex with regular weight monitoring. Close follow up with Dr. Simmons. mild-mod MR - functional, likely related to volume status - echo 06/2015 stable anemia/multiple myeloma? - hgb was 7.3, up to 9 post-PRBC, trending back down - ongoing mgm't per pmd/onc (not felt to be bleeding per prior d/w heme). coumadin resumed. hypercalcemia/multiple myeloma - s/p ivf and continuing bumex per renal. Emphysema SEEING AGATA; SOB IMPROVED WITH REGULAR MDI USE H/O WHEEZING IN PAST--STABLE OF LATE
[2016-08-26] MEDS: ACETAMINOPHEN 325 MG TABLET (FP) PO PRN (16:39)
[2016-08-26] MEDS: WARFARIN NA 2.5 MG TABLET (FP) PO SCH (18:23)
[2016-08-26] MEDS: MONTELUKAST NA 10 MG TABLET PO SCH (21:58)
[2016-08-26] MEDS: ATORVASTATIN CA 10 MG TABLET (FP) PO SCH (21:58)
[2016-08-27] MEDS: INSULIN SLIDING SCALE (NOVOLOG) 1 VIAL SQ SCH (06:09)
[2016-08-27 06:45] VITALS: TEMP 97.9
[2016-08-27] MEDS ORDERED: INSULIN (NOVOLOG) ASPART 100 UNITS/ML 10ML VIAL ONE (07:06)
[2016-08-27] MEDS ORDERED: PT OWN MED DRAWER 7, Y5N ONE (09:26)
[2016-08-27] MEDS: PREGABALIN 50 MG CAPSULE PO SCH (09:36)
[2016-08-27] MEDS: POTASSIUM CHLORIDE TABS 10 MEQ TABLET.ER (FP) PO SCH (09:36)
[2016-08-27] MEDS: METOPROLOL SUCCINATE 25 MG TAB.SR.24H (FP) PO SCH (09:36)
[2016-08-27] MEDS: RANITIDINE HCL 150 MG TABLET (FP) PO SCH (09:36)
[2016-08-27] MEDS: dilTIAZem HCL 60 MG TABLET (FP) PO SCH (09:36)
[2016-08-27] MEDS: CHOLECALCIFEROL (VITAMIN D3) 1,000 UNIT TABLET (FP) PO SCH (09:36)
[2016-08-27] MEDS: DOCUSATE SODIUM 100 MG CAPSULE (FP) PO SCH (09:36)
[2016-08-27] MEDS: PROPYLTHIOURACIL 50 MG TABLET (UD) PO SCH (09:37)
[2016-08-27] MEDS: POLYETHYLENE GLYCOL 3350 119 GM BTL PO SCH (09:37)
[2016-08-27] MEDS: oxyCODONE HCL 5 MG TABLET PO PRN (09:40)
--- NOTE | 2016-08-27 11:17 | PN ---
Progress Note, Physician History of Present Illness: Pt seen and examined at bedside. She is awake and appears comfortable. She denies shortness of breath. - Current Medication List Current Medications: Active Medications Acetaminophen (Tylenol -) 650 mg PO Q4H PRN PRN Reason: FEVER OR PAIN Last Admin: 08/26/16 16:39 Dose: 650 mg Albuterol Sulfate (Ventolin 0.083% Nebulizer Soln -) 1 amp NEB Q6H PRN PRN Reason: SHORT OF BREATH/WHEEZING Last Admin: 08/26/16 22:44 Dose: 1 amp Atorvastatin Calcium (Lipitor -) 10 mg PO HS [facility] Last Admin: 08/26/16 21:58 Dose: 10 mg Bumetanide (Bumex -) 1 mg PO Q2D@1000 BURKE Cholecalciferol (Vitamin D3 -) 2,000 unit PO DAILY [facility] Last Admin: 08/27/16 09:36 Dose: 2,000 unit Diltiazem HCl (Cardizem -) 60 mg PO BID [facility] Last Admin: 08/27/16 09:36 Dose: 60 mg Docusate Sodium (Colace -) 100 mg PO BID [facility] Last Admin: 08/27/16 09:36 Dose: 100 mg Guaifenesin (Robitussin -) 10 ml PO Q6H PRN PRN Reason: COUGH Last Admin: 08/25/16 17:13 Dose: 10 ml Insulin Aspart (Novolog Vial Sliding Scale -) 0 vial SQ BIDAC BURKE PRN Reason: Protocol Last Admin: 08/27/16 06:09 Dose: Not Given Ipratropium [place] (Atrovent 0.02% Nebulizer -) 1 amp NEB Q6H PRN PRN Reason: WHEEZING Last Admin: 08/26/16 22:44 Dose: 1 amp Metoprolol Succinate (Toprol Xl -) 25 mg PO DAILY [facility] Last Admin: 08/27/16 09:36 Dose: 25 mg Montelukast Sodium (Singulair -) 10 mg PO HS [facility] Last Admin: 08/26/16 21:58 Dose: 10 mg Ondansetron HCl (Zofran Injection) 4 mg IVPB Q6H PRN PRN Reason: NAUSEA Oxycodone HCl (Roxicodone -) 2.5 mg PO Q4H PRN PRN Reason: PAIN Last Admin: 08/27/16 09:40 Dose: 2.5 mg Polyethylene Glycol (Miralax (For Daily Use) -) 17 gm PO DAILY [facility] Last Admin: 08/27/16 09:37 Dose: 17 gm Potassium Chloride (K-Dur -) 10 meq PO BID [facility] Last Admin: 08/27/16 09:36 Dose: 10 meq Pregabalin (Lyrica -) 50 mg PO BID [facility] Last Admin: 08/27/16 09:36 Dose: 50 mg Propylthiouracil (Ptu -) 50 mg PO DAILY [facility] Last Admin: 08/27/16 09:37 Dose: 50 mg Ranitidine HCl (Zantac -) 150 mg PO BID [facility] Last Admin: 08/27/16 09:36 Dose: 150 mg Warfarin Sodium (Coumadin -) 2.5 mg PO DAILY@1800 [facility] Last Admin: 08/26/16 18:23 Dose: 2.5 mg - Objective Vital Signs: Vital Signs Temperature 97.9 F 08/27/16 06:44 Pulse Rate 96 H 08/27/16 06:44 Respiratory Rate 19 08/27/16 06:44 Blood Pressure 137/83 08/27/16 06:44 O2 Sat by Pulse Oximetry (%) 96 08/27/16 09:00 Constitutional: Yes: Calm Eyes: Yes: Conjunctiva Clear HENT: Yes: Atraumatic Neck: Yes: Supple Cardiovascular: Yes: S1, S2 Respiratory: Yes: On Nasal O2 Gastrointestinal: Yes: Soft Genitourinary: Yes: WNL Musculoskeletal: Yes: WNL Edema: No Neurological: Yes: Oriented Psychiatric: Yes: Oriented Labs: CBC, BMP 08/25/16 06:20 08/26/16 06:00 INR, PTT INR 2.42 (0.82-1.09) H 08/26/16 06:00 Problem List - Problems (1) Anemia Code(s): D64.9 - ANEMIA, UNSPECIFIED Qualifiers: Anemia type: unspecified type Qualified Code(s): D64.9 - Anemia, unspecified (2) Confusion and disorientation Code(s): F99 - MENTAL DISORDER, NOT OTHERWISE SPECIFIED (3) Hypercalcemia Code(s): E83.52 - HYPERCALCEMIA (4) Atrial fibrillation Code(s): I48.91 - UNSPECIFIED ATRIAL FIBRILLATION Qualifiers: Atrial fibrillation type: chronic Qualified Code(s): I48.2 - Chronic atrial fibrillation (5) COPD (chronic obstructive pulmonary disease) Code(s): J44.9 - CHRONIC OBSTRUCTIVE PULMONARY DISEASE, UNSPECIFIED (6) Congestive heart failure Code(s): I50.9 - HEART FAILURE, UNSPECIFIED (7) Diabetes mellitus Code(s): E11.9 - TYPE 2 DIABETES MELLITUS WITHOUT COMPLICATIONS (8) Meningioma Code(s): D32.9 - BENIGN NEOPLASM OF MENINGES, UNSPECIFIED Assessment/Plan Current Medications Generic Name Dose Route Start Last Admin Trade Name Freq PRN Reason Stop Dose Admin Acetaminophen 650 mg 08/14/16 16:39 08/26/16 16:39 Tylenol - PO 650 mg Q4H PRN Administration FEVER OR PAIN Albuterol Sulfate 1 amp 08/14/16 16:39 08/26/16 22:44 Ventolin 0.083% Nebulizer Soln - NEB 1 amp Q6H PRN Administration SHORT OF BREATH/WHEEZING Atorvastatin Calcium 10 mg 08/14/16 22:00 08/26/16 21:58 Lipitor - PO 10 mg HS BURKE Administration Bumetanide 1 mg 08/28/16 10:00 Bumex - PO Q2D@1000 BURKE Cholecalciferol 2,000 unit 08/15/16 10:00 08/27/16 09:36 Vitamin D3 - PO 2,000 unit DAILY BURKE Administration Diltiazem HCl 60 mg 08/14/16 22:00 08/27/16 09:36 Cardizem - PO 60 mg BID BURKE Administration Docusate Sodium 100 mg 08/14/16 22:00 08/27/16 09:36 Colace - PO 100 mg BID BURKE Administration Guaifenesin 10 ml 08/17/16 14:14 08/25/16 17:13 Robitussin - PO 10 ml Q6H PRN Administration COUGH Insulin Aspart 0 vial 08/15/16 07:00 08/27/16 06:09 Novolog Vial Sliding Scale - SQ Not Given BIDAC [facility] Protocol Ipratropium [place] 1 amp 08/14/16 16:39 08/26/16 22:44 Atrovent 0.02% Nebulizer - NEB 1 amp Q6H PRN Administration WHEEZING Metoprolol Succinate 25 mg 08/15/16 10:00 08/27/16 09:36 Toprol Xl - PO 25 mg DAILY BURKE Administration Montelukast Sodium 10 mg 05/25/17 22:00 08/26/16 21:58 Singulair - PO 10 mg HS BURKE Administration Ondansetron HCl 4 mg 08/14/16 16:39 Zofran Injection IVPB Q6H PRN NAUSEA Oxycodone HCl 2.5 mg 08/26/16 13:07 08/27/16 09:40 Roxicodone - PO 2.5 mg Q4H PRN Administration PAIN Polyethylene Glycol 17 gm 08/15/16 10:00 08/27/16 09:37 Miralax (For Daily Use) - PO 17 gm DAILY BURKE Administration Potassium Chloride 10 meq 08/16/16 13:45 08/27/16 09:36 K-Dur - PO 10 meq BID BURKE Administration Pregabalin 50 mg 08/14/16 22:00 08/27/16 09:36 Lyrica - PO 50 mg BID [facility]KE Administration Propylthiouracil 50 mg 08/15/16 10:00 08/27/16 09:37 Ptu - PO 50 mg DAILY [facility] Administration Ranitidine HCl 150 mg 08/14/16 22:00 08/27/16 09:36 Zantac - PO 150 mg BID [facility]KE Administration Warfarin Sodium 2.5 mg 08/25/16 18:00 08/26/16 18:23 Coumadin - PO 2.5 mg DAILY@1800 BURKE Administration Impression 1. hypercalcemia 2. CHF 3. hx meningioma 4. DM 5. HTN 6. r/o myeloma 7. anemia Plan - no new labs - pt being discharged - discussed with cardio, bumex 1 mg every other day and pt will have bloodwork checked at home - discussed plan with patient's family - will need to assess as outpt for diuretics depending on her volume status - pt received Zoledronic acid on the 3rd, calcium has stabilized for now - will follow Dr Rolle
[2016-08-27 12:59] VITALS: BP 119/89; PULSE 95
[2016-08-28] MEDS ORDERED: BUMETANIDE 1 MG TABLET PO SCH (10:00)
== END 2016-08-27 11:48 | disposition home health service (06) | DRG 841 ==
LOC: JER 12:28 → JERBED 16:20 → J7W 18:25
PROVIDERS: ADMIT Internal Medicine; ATTEND Internal Medicine
PROC: 30233N1 Transfusion of Nonautologous Red Blood Cells into Peripheral Vein, Percutaneous Approach (ICD-10-PCS; principal; 2016-08-14)
DX: C90.00 Multiple myeloma not having achieved remission (principal); N17.9 Acute kidney failure, unspecified; I50.30 Unspecified diastolic (congestive) heart failure; D63.0 Anemia in neoplastic disease; I48.2 Chronic atrial fibrillation; Z79.01 Long term (current) use of anticoagulants; J44.9 Chronic obstructive pulmonary disease, unspecified; E11.9 Type 2 diabetes mellitus without complications; E78.5 Hyperlipidemia, unspecified; E83.52 Hypercalcemia; I11.0 Hypertensive heart disease with heart failure; Z96.641 Presence of right artificial hip joint; G89.3 Neoplasm related pain (acute) (chronic); E87.6 Hypokalemia; R41.0 Disorientation, unspecified; S60.221A Contusion of right hand, initial encounter; W01.0XXA Fall on same level from slipping, tripping and stumbling without subsequent striking against object, initial encounter; Y92.230 Patient room in hospital as the place of occurrence of the external cause; K44.9 Diaphragmatic hernia without obstruction or gangrene; I05.1 Rheumatic mitral insufficiency; Z99.81 Dependence on supplemental oxygen
CPT/HCPCS: 36415; 36430; 70450-TC; 71010-TC; 76775-TC; 77074-TC; 80048; 80053; 80076; 81003; 81015; 82040; 82272; 82310; 82436; 82565; 82570; 82607; 82728; 82747; 82784; 83540; 83550; 83735; 83880; 83883; 83970; 84100; 84133; 84155; 84156; 84157; 84165; 84300; 84439; 84443; 84484; 84520; 85014; 85025; 85610; 85730; 86334; 86850; 86900; 86901; 86922; 87040; 87086; 88300-TC; 93005; 93010; 94640; 94761; 97116-GP; 97162; 99283-25; J3489; P9038; P9058

== ENCOUNTER 2016-10-24 12:49 | Inpatient (IN) | payer OTHER ==
--- NOTE | 2016-10-24 14:05 | PDOC ---
History of Present Illness - General History Source: Patient Exam Limitations: No Limitations - History of Present Illness Initial Comments: CHIEF COMPLAINT: 86 y/o afebrile female with PMH HTN, HLD, NIDDM, a-fib (on Coumadin), GERD, multiple myeloma, anemia with previous blood transfusions sent in by PCP for low H&H. HISTORY OF PRESENT ILLNESS: The patient states about 10 days ago she started feeling weak. Her son noticed last thursday that she didn't look right so he called Dr. Fong, who had her blood drawn. Dr. Fong called today and informed her son that she needed to come to the ER to be admitted because her hemoglobin was 7.7. The patient denies all other symptoms including fever, MICHAELS, n/v/d, cough, hemoptysis, hematemesis, CP, SOB, palpitations, abd pain, melena, hematochezia. The patient is on home O2 and normally drops down to 89% or so on RA when she does not have her oxygen. Vital signs on arrival are notable for O2 sat of 87% on RA. REVIEW OF SYSTEMS: GENERAL/CONSTITUTIONAL: No fever/chills. + weakness. No weight change. HEAD, EYES, EARS, NOSE AND THROAT: No change in vision. No ear pain or discharge. No sore throat. CARDIOVASCULAR: No chest pain or shortness of breath. RESPIRATORY: No cough, wheezing, or hemoptysis. GASTROINTESTINAL: No abd pain, nausea, vomiting, diarrhea, constipation, bloody stools. GENITOURINARY: No dysuria, frequency, or change in urination. MUSCULOSKELETAL: No joint or muscle swelling or pain. No neck or back pain. SKIN: No rash or easy bruising. NEUROLOGIC: No headache, vertigo, loss of consciousness, or loss of sensation. PHYSICAL EXAM: GENERAL: The patient is awake, alert, and fully oriented, in no acute distress. She appears weak and pale. HEAD: Normal with no signs of trauma. ENT: +pale conjunctiva. Pupils equal, round and reactive to light, extraocular movements intact, sclera anicteric. LUNGS: Clear to auscultation bilaterally. Normal excursion. No respiratory distress or use of accessory muscles. CV: Regularly irregular rhythm, S1/S2, no MRG. Cap refill < 2 sec. ABDOMEN: Soft, non-distended, non-tender even to deep palpation, no hepatomegaly or splenomegaly, no masses. RECTAL: No gross blood on rectal exam. Internal hemorrhoids appreciated. EXTREMITIES: Normal range of motion, no edema. NEUROLOGICAL: Normal speech, normal gait. CN II-XII grossly intact. PSYCH: Normal mood, normal affect. SKIN: Warm, dry, normal turgor, no rashes or lesions noted. <Nhung Sykes - Last Filed: 10/24/16 18:10> <Chloe Lim - Last Filed: 10/27/16 12:45> - General Chief Complaint: Weakness Stated Complaint: WEAKNESS Time Seen by Provider: 10/24/16 13:32 Past History - Past Medical History Anemia: No Asthma: No Cancer: Yes (W/U in progress for BRAIN TUMOR) Cardiac Disorders: Yes (afib) CVA: No COPD: Yes CHF: Yes (A-FIB) Dementia: No Diabetes: Yes (NIDDM) GI Disorders: No Disorders: Yes (UTI) HTN: Yes Hypercholesterolemia: Yes Liver Disease: No Seizures: No Thyroid Disease: No - Surgical History Abdominal Surgery: No Appendectomy: No Cardiac Surgery: No Cholecystectomy: No Lung Surgery: No Neurologic Surgery: No Orthopedic Surgery: No - Immunization History Immunization Up to Date: Yes - Psycho/Social/Smoking Cessation Hx Anxiety: No Suicidal Ideation: No Smoking Status: Yes Smoking History: Former smoker Have you smoked in the past 12 months: No Number of Cigarettes Smoked Daily: 0 If you are a former smoker, when did you quit?: 1989 Information on smoking cessation initiated: No Hx Alcohol Use: No Drug/Substance Use Hx: No Substance Use Type: None Hx Substance Use Treatment: No <Nhung Sykes - Last Filed: 10/24/16 18:10> <Chloe Lim - Last Filed: 10/27/16 12:45> - Past Medical History Allergies/Adverse Reactions: Allergies Allergy/AdvReac Type Severity Reaction Status Date / Time Iodinated Contrast- Oral and Allergy Verified 10/24/16 13:15 IV Dye [IV Dye, Iodine Containing Contrast ] Sulfa (Sulfonamide Allergy Verified 10/24/16 13:15 Antibiotics) Home Medications: Ambulatory Orders Atorvastatin Ca [Lipitor] 20 mg PO HS 08/14/16 Diltiazem [Cardizem -] 60 mg PO BID 08/14/16 Ergocalciferol (Vitamin D2) [Vitamin D2] 2,000 unit PO DAILY 08/14/16 Metformin HCl [Metformin HCl ER] 500 mg PO DAILY 08/14/16 Metoprolol Tartrate [Lopressor -] 25 mg PO DAILY 08/14/16 Montelukast Na [Singulair -] 10 mg PO HS 08/14/16 Potassium Chloride [Klor-Con] 20 meq PO DAILY 08/14/16 Pregabalin [Lyrica -] 50 mg PO BID 08/14/16 Propylthiouracil 50 mg PO DAILY 08/14/16 Ranitidine [Zantac -] 150 mg PO BID 08/14/16 Albuterol 0.083% Nebulizer [place] [Ventolin 0.083% Nebulizer Soln -] 1 amp NEB Q6H PRN #30 amp 08/26/16 Ipratropium 0.02% Nebulizer [Atrovent 0.02% Nebulizer -] 1 amp NEB Q6H PRN #30 amp 08/26/16 Oxycodone HCl [Roxicodone -] 2.5 mg PO Q4H PRN #60 tablet MDD 30mg 08/26/16 Warfarin Na [Coumadin -] 2.5 mg PO DAILY@1800 tablet 08/26/16 Bumetanide [Bumex -] 1 mg PO Q2D@1000 #30 tablet 08/27/16 *Physical Exam - Vital Signs Last Vital Signs Temp Pulse Resp BP Pulse Ox 98.3 F 85 22 124/79 97 10/24/16 13:10 10/24/16 13:10 10/24/16 13:10 10/24/16 13:10 10/24/16 13:16 <Nhung Sykes - Last Filed: 10/24/16 18:10> - Vital Signs Last Vital Signs Temp Pulse Resp BP Pulse Ox 98.5 F 109 H 18 124/75 97 10/27/16 10:00 10/27/16 10:35 10/27/16 10:00 10/27/16 10:00 10/27/16 10:35 <Chloe Lim - Last Filed: 10/27/16 12:45> Heart Score/ECG Review - ECG Intrepretation Comment:: Twelve-lead EKG was performed and reviewed by Dr. Lim. There is a fib with a normal rate. The axis is normal. The intervals are normal. There are no ST or T wave abnormalities. Impression: Abnormal twelve-lead EKG <Nhung Sykes - Last Filed: 10/24/16 18:10> ED Treatment Course - LABORATORY CBC & Chemistry Diagram: 10/24/16 14:22 10/24/16 14:22 <Nhung Sykes - Last Filed: 10/24/16 18:10> - LABORATORY CBC & Chemistry Diagram: 10/27/16 06:50 10/27/16 06:50 - ADDITIONAL ORDERS Additional order review: 10/24/16 14:22 RBC 2.80 L MCV 92.8 MCHC 31.0 L RDW 17.4 H MPV 8.8 Neutrophils % 60.0 Lymphocytes % 30.0 D Monocytes % 7.0 Eosinophils % 3.0 - Medications Given in the ED: ED Medications Discontinued Medications Generic Name Dose Route Start Last Admin Trade Name Freq PRN Reason Stop Dose Admin Albuterol Sulfate 1 amp 10/24/16 19:30 10/24/16 19:49 Ventolin 0.083% Nebulizer Soln - NEB 1 amp QIDR [facility]URKE Administration Ipratropium [place] 1 amp 10/24/16 19:30 10/24/16 19:49 Atrovent 0.02% Nebulizer - NEB 1 amp Q6H BURKE Administration Warfarin Sodium 4 mg 10/24/16 19:28 10/24/16 19:49 Coumadin - PO 10/24/16 19:29 4 mg NOW ONE Administration Warfarin Sodium 5 mg 10/26/16 18:00 10/26/16 18:17 Coumadin - PO 10/26/16 18:01 5 mg ONCE@1800 ONE Administration <Chloe Lim - Last Filed: 10/27/16 12:45> Medical Decision Making - Medical Decision Making A/P: 86 y/o afebrile female here for admission and blood transfusion. Plan is as follows: 1. Labs 2. EKG H&H: 8.04/17 EKG shows afib Guiac negative Spoke with Dr. fong who would like her to be transfused 1 unit of PRBCs and admitted to Dr. Simpson. Microblogged Dr. Simpson CXR IMPRESSION: Unchanged from prior of 08/14/16 CMP not resulted yet. Dr. Simpson wants all results back before admission. Labs resulted at 6pm. Called Dr. Fong's answering service and he is cold roll packer sheet iron. He wants patient admitted to him. <Nhung Sykes - Last Filed: 10/24/16 18:10> *DC/Admit/Observation/Transfer - Discharge Dispostion Admit: Yes <Nhung Sykes - Last Filed: 10/24/16 18:10> - Attestations Physician Attestion: I reviewed the case with the mid-level practitioner and agree with the mid- level practitioner's assessment, diagnosis and disposition. <Chloe Lim - Last Filed: 10/27/16 12:45> Diagnosis at time of Disposition: Weakness Anemia Qualifiers: Anemia type: unspecified type Qualified Code(s): D64.9 - Anemia, unspecified Multiple myeloma Qualifiers: Multiple myeloma remission status: not in remission Qualified Code(s): C90.00 - Multiple myeloma not having achieved remission - Discharge Dispostion Condition at time of disposition: Fair - Referrals
[2016-10-24 15:04] LABS: MCH 28.8 pg (25.7-33.7); MEAN CELL VOLUME 92.8 fl (80-96); MEAN PLT VOLUME 8.8 fl (7.5-11.1); PLATELET COUNT 194 K/MM3 (134-434); RDW 17.4 % (11.6-15.6); WHITE BLOOD COUNT 7.7 K/mm3 (4.0-10.0)
[2016-10-24 15:26] LABS: INR 1.51 (0.82-1.09); PROTHROMBIN TIME (PATIENT) 16.8 SEC (9.98-11.88)
[2016-10-24 15:56] LABS: PLATELET ESTIMATE ADEQUATE (NORMAL)
[2016-10-24 17:33] LABS: ALBUMIN 2.7 g/dl (3.4-5.0); ANION GAP 1 (8-16); BILIRUBIN,TOTAL 0.6 mg/dL (0.2-1.0); CALCIUM 8.4 mg/dL (8.5-10.1); CO2 32 mmol/L (21-32); CREATININE 1.2 mg/dL (0.55-1.02); GLUCOSE,RANDOM 61 mg/dL (74-106); LDH 367 U/L (84-246); SGOT/AST 24 U/L (15-37); SGPT/ALT 15 U/L (12-78)
[2016-10-24 17:36] LABS: ALK PHOS 65 U/L (45-117); CPK 41 IU/L (26-192); TOT PROT 11.8 g/dl (6.4-8.2); TROPONIN I < 0.02 ng/ml (0.00-0.05)
[2016-10-24] MEDS ORDERED: WARFARIN NA 2 MG TABLET (UD) PO ONE (19:28)
[2016-10-24] MEDS ORDERED: ALBUTEROL SO4 0.083% IH SOL 2.5 MG/3 ML VIAL.NEB. NEB SCH (19:30)
[2016-10-24] MEDS ORDERED: IPRATROPIUM BR 0.02% 0.5 MG/2.5 ML VIAL.NEB. NEB SCH (19:30)
--- NOTE | 2016-10-24 19:33 | HP ---
Admitting History and Physical - Admission Chief Complaint: anemia, weakness History of Present Illness: 86 yo h/o multiple myeloma, CAD, afib, COPD, back pain, presents to hospital with increasing weakness at home. When last hospitalized about 6-8 weeks ago, found to have multiple myeloma with hypercalcemia. She responded to IV bisphosphonte and has been home after treatment with calcium levels normalizing. Since then has good and bad days with chronic back pain, but now son notes patient has been more lethargic, period sof confusion. Blood work repeated at home noted for hgb 7.7, so instructed to come to hospital for further treatment. Denies any blood per stool, takes coumadin for afib (INR fluctuating lately). Has chronic back pain, but son notes prior to the current weakness had been a little better controlled lately at home. History Source: Family Member, Medical Record - Past Medical History Cardiovascular: Yes: AFIB, HTN, Hyperlipdemia Pulmonary: Yes: COPD Renal/: Yes: UTI (recent Hx of ESBL UTI) Heme/Onc: Yes: Anemia, Other (multiple myeloma) Endocrine: Yes: Diabetes Mellitus - Past Surgical History Past Surgical History: Yes: Joint Replacement - Smoking History Smoking history: Former smoker Have you smoked in the past 12 months: No Aproximately how many cigarettes per day: 0 If you are a former smoker, when did you quit?: 1989 - Alcohol/Substance Use Hx Alcohol Use: No History of Substance Use: reports: None - Social History ADL: Support Services Occupation: Retired History of Recent Travel: No Home Medications - Allergies Allergies/Adverse Reactions: Allergies Allergy/AdvReac Type Severity Reaction Status Date / Time Iodinated Contrast- Oral and Allergy Verified 10/24/16 13:15 IV Dye [IV Dye, Iodine Containing Contrast ] Sulfa (Sulfonamide Allergy Verified 10/24/16 13:15 Antibiotics) - Home Medications Home Medications: Ambulatory Orders Atorvastatin Ca [Lipitor] 20 mg PO HS 08/14/16 Diltiazem [Cardizem -] 60 mg PO BID 08/14/16 Ergocalciferol (Vitamin D2) [Vitamin D2] 2,000 unit PO DAILY 08/14/16 Metformin HCl [Metformin HCl ER] 500 mg PO DAILY 08/14/16 Metoprolol Tartrate [Lopressor -] 25 mg PO DAILY 08/14/16 Montelukast Na [Singulair -] 10 mg PO HS 08/14/16 Potassium Chloride [Klor-Con] 20 meq PO DAILY 08/14/16 Pregabalin [Lyrica -] 50 mg PO BID 08/14/16 Propylthiouracil 50 mg PO DAILY 08/14/16 Ranitidine [Zantac -] 150 mg PO BID 08/14/16 Albuterol 0.083% Nebulizer [place] [Ventolin 0.083% Nebulizer Soln -] 1 amp NEB Q6H PRN #30 amp 08/26/16 Ipratropium 0.02% Nebulizer [Atrovent 0.02% Nebulizer -] 1 amp NEB Q6H PRN #30 amp 08/26/16 Oxycodone HCl [Roxicodone -] 2.5 mg PO Q4H PRN #60 tablet MDD 30mg 08/26/16 Warfarin Na [Coumadin -] 2.5 mg PO DAILY@1800 tablet 08/26/16 Bumetanide [Bumex -] 1 mg PO Q2D@1000 #30 tablet 08/27/16 Family Disease History - Family Disease History Family Disease History: [place]: Father, Mother, Sister, Other: Son (2 healthy), Daughter (4 healthy) Review of Systems - Review of Systems Constitutional: denies: Chills, Fever Eyes: reports: No Symptoms HENT: denies: Difficult Swallowing, Epistaxis Neck: denies: Decreased ROM, Tenderness Cardiovascular: denies: Chest Pain, Palpitations Respiratory: reports: SOB on Exertion. denies: Cough Gastrointestinal: denies: Abdominal Pain, Constipation, Diarrhea, Melena, Nausea , Vomiting Genitourinary: denies: Burning, Discharge, Dysuria Musculoskeletal: reports: Back Pain Integumentary: reports: Wound (sacrum) Neurological: reports: Confusion (occasionally) Physical Examination Vital Signs: Vital Signs Temperature 98.4 F 10/24/16 17:46 Pulse Rate 96 H 10/24/16 17:46 Respiratory Rate 18 10/24/16 17:46 Blood Pressure 138/82 10/24/16 17:46 O2 Sat by Pulse Oximetry (%) 98 10/24/16 17:46 Constitutional: Yes: Mild Distress (due to pain at sacral ulcer, back) Eyes: Yes: Conjunctiva Clear, EOM Intact HENT: Yes: Atraumatic, Normocephalic Neck: Yes: Supple, Trachea Midline Cardiovascular: Yes: Pulse Irregular, S1, S2. No: Murmur Respiratory: Yes: Regular, CTA Bilaterally Gastrointestinal: Yes: Normal Bowel Sounds, Soft. No: Distention, Tenderness Musculoskeletal: Yes: Back Pain Edema: No Neurological: Yes: Alert Labs: Laboratory Tests 10/24/16 10/24/16 10/24/16 14:18 14:22 14:22 WBC 7.7 D RBC 2.80 L Hgb 8.1 L D Hct 26.0 L D MCV 92.8 MCH 28.8 MCHC 31.0 L RDW 17.4 H Plt Count 194 D MPV 8.8 Neutrophils % 60.0 Lymphocytes % 30.0 D Monocytes % 7.0 Eosinophils % 3.0 Differential Comment Manual diff done Platelet Estimate Adequate Retic Count 1.95 H INR 1.51 H D Sodium Potassium Chloride Carbon Dioxide Anion Gap BUN Creatinine Creat Clearance w eGFR POC Glucometer Random Glucose Calcium Total Bilirubin AST ALT Alkaline Phosphatase LD Total Creatine Kinase Troponin I Total Protein Albumin Stool Occult Blood Negative Blood Type Antibody Screen Crossmatch 10/24/16 10/24/16 10/24/16 14:22 14:22 19:49 WBC RBC Hgb Hct MCV MCH MCHC RDW Plt Count MPV Neutrophils % Lymphocytes % Monocytes % Eosinophils % Differential Comment Platelet Estimate Retic Count INR Sodium 137 Potassium 4.1 Chloride 104 Carbon Dioxide 32 D Anion Gap 1 L BUN 11 D Creatinine 1.2 H Creat Clearance w eGFR 42.40 POC Glucometer [phone] Random Glucose 61 L Calcium 8.4 L Total Bilirubin 0.6 AST 24 ALT 15 D Alkaline Phosphatase 65 LD Total 367 H Creatine Kinase 41 Troponin I < 0.02 Total Protein 11.8 H Albumin 2.7 L Stool Occult Blood Blood Type O POSITIVE Antibody Screen Negative Crossmatch See Detail Imaging - Results Chest X-ray: Report Reviewed (-interstitial airspace changes) Problem List - Problems (1) Anemia Assessment/Plan: -appears symtomatic -will give blood transfusion -guaiac neg i [place], so will continue coumadin --heme eval -anemia may be from multiple myeloma, and if not actively otherwise needing (or candidate) for further MM treatment, may need continue supportive care for anemia (i.e. transfusions) Code(s): D64.9 - ANEMIA, UNSPECIFIED (2) Atrial fibrillation Assessment/Plan: -currently heart rate controlled -will continue coumadin, as no signs of bleeding Code(s): I48.91 - UNSPECIFIED ATRIAL FIBRILLATION Qualifiers: Atrial fibrillation type: chronic Qualified Code(s): I48.2 - Chronic atrial fibrillation (3) COPD (chronic obstructive pulmonary disease) Assessment/Plan: -does not appear to be actively in exacerbation Code(s): J44.9 - CHRONIC OBSTRUCTIVE PULMONARY DISEASE, UNSPECIFIED (4) Congestive heart failure Assessment/Plan: -will give IV lasix while in hospital, as possible component CHF contributing to weakness Code(s): I50.9 - HEART FAILURE, UNSPECIFIED (5) Diabetes mellitus Assessment/Plan: -follow with fingersticks Code(s): E11.9 - TYPE 2 DIABETES MELLITUS WITHOUT COMPLICATIONS (6) Multiple myeloma Assessment/Plan: -heme eval Code(s): C90.00 - MULTIPLE MYELOMA NOT HAVING ACHIEVED REMISSION Qualifiers: Multiple myeloma remission status: not in remission Qualified Code(s ): C90.00 - Multiple myeloma not having achieved remission
[2016-10-24] MEDS ORDERED: WARFARIN NA 1 MG TABLET (FP) ONE (19:37)
[2016-10-24] MEDS ORDERED: ALBUTEROL SO4 2.5/IPRATROPIUM 0.5 INH SOL 3 ML VIAL.NEB. NEB ONE (19:38)
[2016-10-24] MEDS: IPRATROPIUM BR 0.02% 0.5 MG/2.5 ML VIAL.NEB. NEB SCH (23:25)
[2016-10-24] MEDS: ALBUTEROL SO4 0.083% IH SOL 2.5 MG/3 ML VIAL.NEB. NEB SCH (23:26)
[2016-10-24] MEDS: dilTIAZem HCL 30 MG TABLET (FP) PO SCH (23:28)
[2016-10-24] MEDS: ATORVASTATIN CA 20 MG TABLET (FP) PO SCH (23:28)
[2016-10-24] MEDS: MONTELUKAST NA 10 MG TABLET PO SCH (23:29)
[2016-10-24] MEDS: RANITIDINE HCL 150 MG TABLET (FP) PO SCH (23:29)
[2016-10-24] MEDS: PREGABALIN 50 MG CAPSULE PO SCH (23:29)
[2016-10-25 01:29] VITALS: BMI 26.8
[2016-10-25] MEDS: IPRATROPIUM BR 0.02% 0.5 MG/2.5 ML VIAL.NEB. NEB SCH ×3 (06:57→17:40)
[2016-10-25] MEDS: ALBUTEROL SO4 0.083% IH SOL 2.5 MG/3 ML VIAL.NEB. NEB SCH ×3 (06:57→17:40)
--- NOTE | 2016-10-25 08:18 | EKG ---
Test Reason : Blood Pressure : / mmHG Vent. Rate : 093 BPM Atrial Rate : 092 BPM P-R Int : 000 ms QRS Dur : 078 ms QT Int : 374 ms P-R-T Axes : 000 -18 019 degrees QTc Int : 465 ms ATRIAL FIBRILLATION SEPTAL INFARCT , AGE UNDETERMINED ABNORMAL ECG WHEN COMPARED WITH ECG OF 16-AUG-2016 08:38, SEPTAL INFARCT IS NOW PRESENT Confirmed by IMANI RO, ROSARIO ([id number]) on 10/25/2016 8:18:03 AM Referred By: Confirmed By:ROSARIO DIALLO MD
[2016-10-25 08:31] LABS: BASOPHIL 0.3 % (0-2.0); EOSINOPHIL 1.4 % (0-4.5); MCH 29.1 pg (25.7-33.7); MCHC 31.9 g/dl (32.0-36.0); MEAN CELL VOLUME 91.3 fl (80-96); NEUTROPHILS 62.4 % (42.8-82.8); PLATELET COUNT 182 K/MM3 (134-434); RDW 17.4 % (11.6-15.6); WHITE BLOOD COUNT 7.2 K/mm3 (4.0-10.0)
[2016-10-25 08:57] LABS: INR 1.42 (0.82-1.09); PROTHROMBIN TIME (PATIENT) 15.7 SEC (9.98-11.88)
[2016-10-25] MEDS ORDERED: PT OWN MED DRAWER 7, Y5N ONE (09:35)
[2016-10-25] MEDS: CHOLECALCIFEROL (VITAMIN D3) 1,000 UNIT TABLET (FP) PO SCH (09:37)
[2016-10-25] MEDS: RANITIDINE HCL 150 MG TABLET (FP) PO SCH ×2 (09:37→23:28)
[2016-10-25] MEDS: PREGABALIN 50 MG CAPSULE PO SCH ×2 (09:37→23:28)
[2016-10-25] MEDS: POTASSIUM CHLORIDE TABS 20 MEQ TABLET.ER (FP) PO SCH (09:37)
[2016-10-25] MEDS: METOPROLOL TARTRATE 25 MG TABLET (FP) PO SCH (09:37)
[2016-10-25] MEDS: dilTIAZem HCL 30 MG TABLET (FP) PO SCH ×2 (09:37→23:28)
[2016-10-25 09:44] LABS: ALBUMIN 2.6 g/dl (3.4-5.0); ANION GAP 5 (8-16); BILIRUBIN,TOTAL 1.1 mg/dL (0.2-1.0); CALCIUM 8.5 mg/dL (8.5-10.1); CO2 26 mmol/L (21-32); GLUCOSE,RANDOM 79 mg/dL (74-106); SGOT/AST 16 U/L (15-37); SGPT/ALT 12 U/L (12-78)
[2016-10-25 09:51] LABS: ALK PHOS 63 U/L (45-117); THYROID STIMULATING HORMONE 0.56 uIU/ml (0.358-3.74)
[2016-10-25] MEDS: FUROSEMIDE 40 MG/4 ML INJECTABLE VIAL IVPUSH SCH (09:57)
[2016-10-25 10:06] LABS: TOT PROT 11.4 g/dl (6.4-8.2)
--- NOTE | 2016-10-25 11:48 | PN ---
Progress Note, Physician History of Present Illness: Feeling the same. Received blood transfusion, but not feeling much better. No increased shortness of breath, still has a lot of pain in back and at sacrum. Upset that she cannot find her upper teeth - Current Medication List Current Medications: Active Medications Albuterol Sulfate (Ventolin 0.083% Nebulizer Soln -) 1 amp NEB QIDR [facility] Last Admin: 10/25/16 06:57 Dose: 1 amp Atorvastatin Calcium (Lipitor -) 20 mg PO [facility] Last Admin: 10/24/16 23:28 Dose: 20 mg Cholecalciferol (Vitamin D3 -) 2,000 unit PO DAILY [facility] Last Admin: 10/25/16 09:37 Dose: 2,000 unit Diltiazem HCl (Cardizem -) 60 mg PO BID [facility] Last Admin: 10/25/16 09:37 Dose: 60 mg Furosemide (Lasix Injection -) 40 mg IVPUSH DAILY [facility] Last Admin: 10/25/16 09:57 Dose: 40 mg Ipratropium [place] (Atrovent 0.02% Nebulizer -) 1 amp NEB QIDR [facility] Last Admin: 10/25/16 06:57 Dose: 1 amp Metformin HCl (Glucophage Xr -) 500 mg PO DAILY@0700 [facility] Last Admin: 10/25/16 06:41 Dose: 500 mg Metoprolol Tartrate (Lopressor -) 25 mg PO DAILY [facility] Last Admin: 10/25/16 09:37 Dose: 25 mg Montelukast Sodium (Singulair -) 10 mg PO [facility] Last Admin: 10/24/16 23:29 Dose: 10 mg Oxycodone HCl (Roxicodone -) 2.5 mg PO Q4H PRN PRN Reason: PAIN Potassium Chloride (K-Dur -) 20 meq PO DAILY [facility] Last Admin: 10/25/16 09:37 Dose: 20 meq Pregabalin (Lyrica -) 50 mg PO BID [facility] Last Admin: 10/25/16 09:37 Dose: 50 mg Propylthiouracil (Ptu -) 50 mg PO DAILY [facility] Ranitidine HCl (Zantac -) 150 mg PO BID [facility] Last Admin: 10/25/16 09:37 Dose: 150 mg Warfarin Sodium (Coumadin -) 2.5 mg PO DAILY@1800 [facility] - Objective Vital Signs: Vital Signs Temperature 97.6 F 10/25/16 06:00 Pulse Rate 87 10/25/16 06:00 Respiratory Rate 18 10/25/16 06:00 Blood Pressure 137/79 10/25/16 06:00 O2 Sat by Pulse Oximetry (%) 99 10/24/16 22:00 Constitutional: Yes: No Distress, Calm Eyes: Yes: Conjunctiva Clear, EOM Intact HENT: Yes: Atraumatic, Normocephalic Neck: Yes: Supple, Trachea Midline Cardiovascular: Yes: Regular Rate and Rhythm, S1, S2. No: Murmur Respiratory: Yes: Regular, Diminished (mildly bilaterally). No: Rales, Rhonchi , Wheezes Gastrointestinal: Yes: Normal Bowel Sounds, Soft. No: Distention, Tenderness Extremities: Yes: Other (sacral stage II decub ulcer) Edema: No Neurological: Yes: Alert, Oriented Labs: CBC, BMP 10/25/16 07:35 10/25/16 07:35 INR, PTT INR 1.42 (0.82-1.09) H 10/25/16 07:35 Problem List - Problems (1) Anemia Code(s): D64.9 - ANEMIA, UNSPECIFIED (2) Atrial fibrillation Code(s): I48.91 - UNSPECIFIED ATRIAL FIBRILLATION Qualifiers: Atrial fibrillation type: chronic Qualified Code(s): I48.2 - Chronic atrial fibrillation (3) COPD (chronic obstructive pulmonary disease) Code(s): J44.9 - CHRONIC OBSTRUCTIVE PULMONARY DISEASE, UNSPECIFIED (4) Congestive heart failure Code(s): I50.9 - HEART FAILURE, UNSPECIFIED (5) Diabetes mellitus Code(s): E11.9 - TYPE 2 DIABETES MELLITUS WITHOUT COMPLICATIONS (6) Multiple myeloma Code(s): C90.00 - MULTIPLE MYELOMA NOT HAVING ACHIEVED REMISSION Qualifiers: Multiple myeloma remission status: not in remission Qualified Code(s ): C90.00 - Multiple myeloma not having achieved remission Assessment/Plan Current Active Problems Anemia (Acute) Weakness (Acute) Mult Myeloma Afib COPD spinal compression fractures sacral ulcer -heme to consult, follow blood counts -discussed with sonOswald, that if blood counts stable and no other active treatment advised by evita, may have to just treat anemia expectantly (ie, with transfusions as needed)
--- NOTE | 2016-10-25 12:16 | CONSULT ---
Consult - text type - Consultation Consultation Note: ONCOLOGY CONSULT NOTE : - Admission Chief Complaint: anemia, weakness History of Present Illness: 86 yr old with a new diagnosis of myeloma during the past admission is here with weakness at home. I dont have the old records but form the previous h/o she was treated with bisphosphanates. SHe has no constipation currently. She is ok even though she has weakness and reports her back pain is controlled. Comorbidities :CAD, afib, COPD, coumadin for afib History Source: Patient, Medical Record - Past Medical History Cardiovascular: Yes: AFIB, HTN, Hyperlipdemia Pulmonary: Yes: COPD Renal/: Yes: UTI (recent Hx of ESBL UTI) Heme/Onc: Yes: Anemia, Other (multiple myeloma) Endocrine: Yes: Diabetes Mellitus - Past Surgical History Past Surgical History: Yes: Joint Replacement - Smoking History Smoking history: Former smoker Have you smoked in the past 12 months: No Aproximately how many cigarettes per day: 0 If you are a former smoker, when did you quit?: 1989 - Alcohol/Substance Use Hx Alcohol Use: No History of Substance Use: reports: None - Social History ADL: Support Services Occupation: Retired History of Recent Travel: No Home Medications - Allergies Allergies/Adverse Reactions: Allergies Allergy/AdvReac Type Severity Reaction Status Date / Time Iodinated Contrast- Oral and Allergy Verified 10/24/16 13:15 IV Dye [IV Dye, Iodine Containing Contrast ] Sulfa (Sulfonamide Allergy Verified 10/24/16 13:15 Antibiotics) - Home Medications Home Medications: Ambulatory Orders Atorvastatin Ca [Lipitor] 20 mg PO HS 08/14/16 Diltiazem [Cardizem -] 60 mg PO BID 08/14/16 Ergocalciferol (Vitamin D2) [Vitamin D2] 2,000 unit PO DAILY 08/14/16 Metformin HCl [Metformin HCl ER] 500 mg PO DAILY 08/14/16 Metoprolol Tartrate [Lopressor -] 25 mg PO DAILY 08/14/16 Montelukast Na [Singulair -] 10 mg PO HS 08/14/16 Potassium Chloride [Klor-Con] 20 meq PO DAILY 08/14/16 Pregabalin [Lyrica -] 50 mg PO BID 08/14/16 Propylthiouracil 50 mg PO DAILY 08/14/16 Ranitidine [Zantac -] 150 mg PO BID 08/14/16 Albuterol 0.083% Nebulizer [place] [Ventolin 0.083% Nebulizer Soln -] 1 amp NEB Q6H PRN #30 amp 08/26/16 Ipratropium 0.02% Nebulizer [Atrovent 0.02% Nebulizer -] 1 amp NEB Q6H PRN #30 amp 08/26/16 Oxycodone HCl [Roxicodone -] 2.5 mg PO Q4H PRN #60 tablet MDD 30mg 08/26/16 Warfarin Na [Coumadin -] 2.5 mg PO DAILY@1800 tablet 08/26/16 Bumetanide [Bumex -] 1 mg PO Q2D@1000 #30 tablet 08/27/16 Family Disease History - Family Disease History Family Disease History: [place]: Father, Mother, Sister, Other: Son (2 healthy), Daughter (4 healthy) Review of Systems - Review of Systems Constitutional: denies: Chills, Fever Eyes: reports: No Symptoms HENT: denies: Difficult Swallowing, Epistaxis Neck: denies: Decreased ROM, Tenderness Cardiovascular: denies: Chest Pain, Palpitations Respiratory: reports: SOB on Exertion. denies: Cough Gastrointestinal: denies: Abdominal Pain, Constipation, Diarrhea, Melena, Nausea , Vomiting Genitourinary: denies: Burning, Discharge, Dysuria Musculoskeletal: reports: Back Pain Neurological: reports: Confusion Physical Examination Vital Signs: Vital Signs Period Temp Pulse Resp BP Sys/Nieto Pulse Ox Last 24 Hr 97.6 F-98.7 F 84-96 16-22 124-147/70-86 87-100 Constitutional: Yes: weak, lies in bed. needs assistance to drink water due to fraility Eyes: Yes: Conjunctiva Clear, EOM Intact HENT: Yes: Atraumatic, Normocephalic Neck: Yes: Supple, Trachea Midline Cardiovascular: Yes: Pulse Irregular, S1, S2. No: Murmur Respiratory: Yes: Regular, CTA Bilaterally Gastrointestinal: Yes: Normal Bowel Sounds, Soft. No: Distention, Tenderness Musculoskeletal: Yes: Back Pain Edema: No Neurological: Yes: Alert but seems not to be completely coherent with answers Labs: CBC, BMP 10/25/16 07:35 10/25/16 07:35 INR, PTT INR 1.42 (0.82-1.09) H 10/25/16 07:35 Imaging - Results Chest X-ray: Report Reviewed (-interstitial airspace changes) Problem List - Problems (1) Anemia Assessment/Plan: Ddx- MM, other causes -symptomatic treatment only -BM not indicated and wouldnt change the maangement plan Code(s): D64.9 - ANEMIA, UNSPECIFIED (2) Atrial fibrillation Code(s): I48.91 - UNSPECIFIED ATRIAL FIBRILLATION Qualifiers: Atrial fibrillation type: chronic Qualified Code(s): I48.2 - Chronic atrial fibrillation (3) COPD (chronic obstructive pulmonary disease) Code(s): J44.9 - CHRONIC OBSTRUCTIVE PULMONARY DISEASE, UNSPECIFIED (4) Congestive heart failure Code(s): I50.9 - HEART FAILURE, UNSPECIFIED (5) Diabetes mellitus Code(s): E11.9 - TYPE 2 DIABETES MELLITUS WITHOUT COMPLICATIONS (6) Multiple myeloma Assessment/Plan: -no hypercalcemia -back pain is present but not too much -her total proteins is 11.4 which signifies that there is clinically significant myeloma -will check total immunoglobulins and serum viscosity -consideration in her would be symptomatic management of myeloma rather that for deifnitive treatment -this can be done with a combination of steroids +/- ixazomib (better choice) / lenalidomide/ melphalan -will continue to f/v -no indications currently for emergent treatment [no hypercalcemia or renal failure] Code(s): C90.00 - MULTIPLE MYELOMA NOT HAVING ACHIEVED REMISSION Qualifiers: Multiple myeloma remission status: not in remission Qualified Code(s ): C90.00 - Multiple myeloma not having achieved remission
[2016-10-25] MEDS: PROPYLTHIOURACIL 50 MG TABLET (UD) PO SCH (12:33)
[2016-10-25] MEDS ORDERED: WARFARIN NA 2.5 MG TABLET (FP) PO SCH (18:00)
[2016-10-25] MEDS: MONTELUKAST NA 10 MG TABLET PO SCH (23:28)
[2016-10-25] MEDS: ATORVASTATIN CA 20 MG TABLET (FP) PO SCH (23:28)
[2016-10-26] MEDS: ALBUTEROL SO4 0.083% IH SOL 2.5 MG/3 ML VIAL.NEB. NEB SCH ×5 (00:30→23:04)
[2016-10-26] MEDS: IPRATROPIUM BR 0.02% 0.5 MG/2.5 ML VIAL.NEB. NEB SCH ×5 (00:30→23:04)
[2016-10-26 06:41] LABS: SERUM IRON 54 ug/dL (27-139); TOTAL IRON BINDING CAPACITY 244 ug/dL (250-450); UIBC 190 ug/dL (118-369)
[2016-10-26 07:12] LABS: MCH 28.9 pg (25.7-33.7); MCHC 31.8 g/dl (32.0-36.0); MEAN CELL VOLUME 91.1 fl (80-96); MEAN PLT VOLUME 8.1 fl (7.5-11.1); PLATELET COUNT 194 K/MM3 (134-434); RDW 17.2 % (11.6-15.6); WHITE BLOOD COUNT 7.3 K/mm3 (4.0-10.0)
[2016-10-26 07:23] LABS: INR 1.38 (0.82-1.09); PROTHROMBIN TIME (PATIENT) 15.3 SEC (9.98-11.88)
[2016-10-26 08:36] LABS: ALBUMIN 2.6 g/dl (3.4-5.0); ANION GAP 6 (8-16); BILIRUBIN,TOTAL 0.7 mg/dL (0.2-1.0); CALCIUM 8.8 mg/dL (8.5-10.1); CO2 27 mmol/L (21-32); CREATININE 1.1 mg/dL (0.55-1.02); GLUCOSE,RANDOM 94 mg/dL (74-106); SGOT/AST 17 U/L (15-37); SGPT/ALT 12 U/L (12-78)
[2016-10-26 08:37] LABS: ALK PHOS 64 U/L (45-117); TOT PROT 11.5 g/dl (6.4-8.2)
[2016-10-26 08:38] LABS: ANISOCYTOSIS 1+; HYPOCHROMIA 1+; MICROCYTOSIS 1+; OVALOCYTES 1+; PLATELET ESTIMATE ADEQUATE (NORMAL); POLYCHROMASIA 1+; TEAR DROP CELLS FEW
[2016-10-26] MEDS ORDERED: PT OWN MED DRAWER 7, Y5N ONE (09:46)
[2016-10-26] MEDS: dilTIAZem HCL 30 MG TABLET (FP) PO SCH ×2 (09:47→22:09)
[2016-10-26] MEDS: FUROSEMIDE 40 MG/4 ML INJECTABLE VIAL IVPUSH SCH (09:48)
[2016-10-26] MEDS: POTASSIUM CHLORIDE TABS 20 MEQ TABLET.ER (FP) PO SCH (09:48)
[2016-10-26] MEDS: METOPROLOL TARTRATE 25 MG TABLET (FP) PO SCH (09:49)
[2016-10-26] MEDS: PROPYLTHIOURACIL 50 MG TABLET (UD) PO SCH (09:49)
[2016-10-26] MEDS: PREGABALIN 50 MG CAPSULE PO SCH ×2 (09:49→22:08)
[2016-10-26] MEDS: CHOLECALCIFEROL (VITAMIN D3) 1,000 UNIT TABLET (FP) PO SCH (09:50)
[2016-10-26] MEDS: RANITIDINE HCL 150 MG TABLET (FP) PO SCH ×2 (09:50→22:09)
--- NOTE | 2016-10-26 10:40 | PN ---
Progress Note, Physician History of Present Illness: Patient feeling a little better today, less pain, a little less weakness. - Current Medication List Current Medications: Active Medications Albuterol Sulfate (Ventolin 0.083% Nebulizer Soln -) 1 amp NEB QIDR [facility] Last Admin: 10/26/16 06:28 Dose: 1 amp Atorvastatin Calcium (Lipitor -) 20 mg PO HS [facility] Last Admin: 10/25/16 23:28 Dose: 20 mg Cholecalciferol (Vitamin D3 -) 2,000 unit PO DAILY [facility] Last Admin: 10/26/16 09:50 Dose: 2,000 unit Diltiazem HCl (Cardizem -) 60 mg PO BID [facility] Last Admin: 10/26/16 09:47 Dose: 60 mg Furosemide (Lasix Injection -) 40 mg IVPUSH DAILY [facility] Last Admin: 10/26/16 09:48 Dose: 40 mg Ipratropium [place] (Atrovent 0.02% Nebulizer -) 1 amp [facility] QIDR [facility] Last Admin: 10/26/16 06:28 Dose: 1 amp Metformin HCl (Glucophage Xr -) 500 mg PO DAILY@0700 [facility] Last Admin: 10/26/16 06:34 Dose: 500 mg Metoprolol Tartrate (Lopressor -) 25 mg PO DAILY [facility] Last Admin: 10/26/16 09:49 Dose: 25 mg Montelukast Sodium (Singulair -) 10 mg PO [facility] Last Admin: 10/25/16 23:28 Dose: 10 mg Oxycodone HCl (Roxicodone -) 2.5 mg PO Q4H PRN PRN Reason: PAIN Potassium Chloride (K-Dur -) 20 meq PO DAILY [facility] Last Admin: 10/26/16 09:48 Dose: 20 meq Pregabalin (Lyrica -) 50 mg PO BID [facility] Last Admin: 10/26/16 09:49 Dose: 50 mg Propylthiouracil (Ptu -) 50 mg PO DAILY [facility] Last Admin: 10/26/16 09:49 Dose: 50 mg Ranitidine HCl (Zantac -) 150 mg PO BID [facility] Last Admin: 10/26/16 09:50 Dose: 150 mg Warfarin Sodium (Coumadin -) 2.5 mg PO DAILY@1800 [facility] Last Admin: 10/25/16 18:02 Dose: 2.5 mg - Objective Vital Signs: Vital Signs Temperature 97.7 F 08/06/17 06:00 Pulse Rate 93 H 10/26/16 06:00 Respiratory Rate 18 10/26/16 06:00 Blood Pressure 126/77 10/26/16 06:00 O2 Sat by Pulse Oximetry (%) 97 10/25/16 22:00 Constitutional: Yes: No Distress, Calm Neck: Yes: Supple, Trachea Midline Cardiovascular: Yes: Regular Rate and Rhythm, S1, S2. No: Murmur Respiratory: Yes: Regular, Diminished (mildy bilaterally) Gastrointestinal: Yes: Normal Bowel Sounds, Soft. No: Distention, Tenderness Edema: LLE: Trace, RLE: Trace Neurological: Yes: Alert, Oriented Labs: CBC, BMP 10/26/16 06:00 10/26/16 06:00 INR, PTT INR 1.38 (0.82-1.09) H 10/26/16 06:00 Problem List - Problems (1) Anemia Code(s): D64.9 - ANEMIA, UNSPECIFIED (2) Atrial fibrillation Code(s): I48.91 - UNSPECIFIED ATRIAL FIBRILLATION Qualifiers: Atrial fibrillation type: chronic Qualified Code(s): I48.2 - Chronic atrial fibrillation (3) COPD (chronic obstructive pulmonary disease) Code(s): J44.9 - CHRONIC OBSTRUCTIVE PULMONARY DISEASE, UNSPECIFIED (4) Congestive heart failure Code(s): I50.9 - HEART FAILURE, UNSPECIFIED (5) Diabetes mellitus Code(s): E11.9 - TYPE 2 DIABETES MELLITUS WITHOUT COMPLICATIONS (6) Multiple myeloma Code(s): C90.00 - MULTIPLE MYELOMA NOT HAVING ACHIEVED REMISSION Qualifiers: Multiple myeloma remission status: not in remission Qualified Code(s ): C90.00 - Multiple myeloma not having achieved remission Assessment/Plan Current Active Problems Anemia (Acute) Weakness (Acute) Mult Myeloma Afib COPD spinal compression fractures sacral ulcer -apprec heme consult -to consider myeloma treatment -will increase coumadin dose today for low INR -follow H/H
--- NOTE | 2016-10-26 11:41 | PN ---
Progress Note (short form) - Note Progress Note: HEMATOLOGY CONSULT NOTE Progress Note: Patient seen and examined No complaints Vital Signs Period Temp Pulse Resp BP Sys/Nieto Pulse Ox Last 24 Hr 97.7 F-98.4 F 79-97 16-18 98-128/66-89 97 Constitutional: denies: Chills, Fever Eyes: reports: No Symptoms HENT: denies: Difficult Swallowing, Epistaxis Neck: denies: Decreased ROM, Tenderness Cardiovascular: denies: Chest Pain, Palpitations Respiratory: reports: SOB on Exertion. denies: Cough Gastrointestinal: denies: Abdominal Pain, Constipation, Diarrhea, Melena, Nausea , Vomiting Genitourinary: denies: Burning, Discharge, Dysuria Musculoskeletal: reports: Back Pain Neurological: reports: Confusion CBC, BMP 10/26/16 06:00 10/26/16 06:00 Labs: reviewed A/P - Problems (1) Anemia Assessment/Plan: Ddx- MM, other causes -symptomatic treatment only -BM not indicated and wouldnt change the maangement plan Code(s): D64.9 - ANEMIA, UNSPECIFIED (2) Atrial fibrillation Code(s): I48.91 - UNSPECIFIED ATRIAL FIBRILLATION Qualifiers: Atrial fibrillation type: chronic Qualified Code(s): I48.2 - Chronic atrial fibrillation (3) COPD (chronic obstructive pulmonary disease) Code(s): J44.9 - CHRONIC OBSTRUCTIVE PULMONARY DISEASE, UNSPECIFIED (4) Congestive heart failure Code(s): I50.9 - HEART FAILURE, UNSPECIFIED (5) Diabetes mellitus Code(s): E11.9 - TYPE 2 DIABETES MELLITUS WITHOUT COMPLICATIONS (6) Multiple myeloma Assessment/Plan: -no hypercalcemia -back pain is present but not too much -her total proteins is 11.4 which signifies that there is clinically significant myeloma -will check total immunoglobulins and serum viscosity -consideration in her would be symptomatic management of myeloma rather that for deifnitive treatment -this can be done with a combination of steroids +/- ixazomib (better choice) / lenalidomide/ melphalan -will continue to f/v -no indications currently for emergent treatment [no hypercalcemia or renal failure] -She wants us to talk with her son regarding any treatment for myeloma. I would suggest that the weekday Onc team to discuss so that they can make a plan and continue with the same one Code(s): C90.00 - MULTIPLE MYELOMA NOT HAVING ACHIEVED REMISSION Qualifiers: Multiple myeloma remission status: not in remission Qualified Code(s ): C90.00 - Multiple myeloma not having achieved remission
[2016-10-26] MEDS ORDERED: WARFARIN NA 5 MG TABLET (UD) PO ONE (18:00)
[2016-10-26] MEDS: ATORVASTATIN CA 20 MG TABLET (FP) PO SCH (22:08)
[2016-10-26] MEDS: MONTELUKAST NA 10 MG TABLET PO SCH (22:08)
[2016-10-27] MEDS: ALBUTEROL SO4 0.083% IH SOL 2.5 MG/3 ML VIAL.NEB. NEB SCH ×4 (06:43→23:02)
[2016-10-27] MEDS: IPRATROPIUM BR 0.02% 0.5 MG/2.5 ML VIAL.NEB. NEB SCH ×4 (06:43→23:02)
[2016-10-27 07:52] LABS: MCH 29.6 pg (25.7-33.7); MCHC 32.5 g/dl (32.0-36.0); MEAN CELL VOLUME 90.9 fl (80-96); MEAN PLT VOLUME 8.2 fl (7.5-11.1); PLATELET COUNT 193 K/MM3 (134-434); RDW 16.7 % (11.6-15.6); WHITE BLOOD COUNT 7.9 K/mm3 (4.0-10.0)
[2016-10-27 08:01] LABS: INR 1.49 (0.82-1.09); PROTHROMBIN TIME (PATIENT) 16.5 SEC (9.98-11.88)
[2016-10-27 08:52] LABS: PLATELET ESTIMATE ADEQUATE (NORMAL)
[2016-10-27 09:37] LABS: ANION GAP 7 (8-16); CALCIUM 9.2 mg/dL (8.5-10.1); CO2 26 mmol/L (21-32); CREATININE 1.2 mg/dL (0.55-1.02); GLUCOSE,RANDOM 86 mg/dL (74-106)
[2016-10-27] MEDS: dilTIAZem HCL 30 MG TABLET (FP) PO SCH ×2 (10:06→22:12)
[2016-10-27] MEDS: POTASSIUM CHLORIDE TABS 20 MEQ TABLET.ER (FP) PO SCH (10:06)
[2016-10-27] MEDS: FUROSEMIDE 40 MG/4 ML INJECTABLE VIAL IVPUSH SCH (10:06)
[2016-10-27] MEDS: RANITIDINE HCL 150 MG TABLET (FP) PO SCH ×2 (10:06→22:13)
[2016-10-27] MEDS: CHOLECALCIFEROL (VITAMIN D3) 1,000 UNIT TABLET (FP) PO SCH (10:07)
[2016-10-27] MEDS: PREGABALIN 50 MG CAPSULE PO SCH ×2 (10:07→22:12)
[2016-10-27] MEDS: PROPYLTHIOURACIL 50 MG TABLET (UD) PO SCH (10:07)
[2016-10-27] MEDS: METOPROLOL TARTRATE 25 MG TABLET (FP) PO SCH (10:07)
--- NOTE | 2016-10-27 12:10 | PN ---
Progress Note, Physician Chief Complaint: Ms Sanchez complains of leg pain, says chronic but worse since coming into the hospital. No cp, sob, n/v. - Current Medication List Current Medications: Active Medications Albuterol Sulfate (Ventolin 0.083% Nebulizer Soln -) 1 amp NEB QIDR [facility] Last Admin: 10/27/16 06:43 Dose: 1 amp Atorvastatin Calcium (Lipitor -) 20 mg PO HS [facility] Last Admin: 10/26/16 22:08 Dose: 20 mg Cholecalciferol (Vitamin D3 -) 2,000 unit PO DAILY [facility] Last Admin: 10/27/16 10:07 Dose: 2,000 unit Diltiazem HCl (Cardizem -) 60 mg PO BID [facility] Last Admin: 10/27/16 10:06 Dose: 60 mg Furosemide (Lasix Injection -) 40 mg IVPUSH DAILY [facility] Last Admin: 10/27/16 10:06 Dose: 40 mg Ipratropium [place] (Atrovent 0.02% Nebulizer -) 1 amp [facility] QIDR [facility] Last Admin: 10/27/16 06:43 Dose: 1 amp Metformin HCl (Glucophage Xr -) 500 mg PO DAILY@0700 [facility] Last Admin: 10/27/16 06:26 Dose: 500 mg Metoprolol Tartrate (Lopressor -) 25 mg PO DAILY [facility] Last Admin: 10/27/16 10:07 Dose: 25 mg Montelukast Sodium (Singulair -) 10 mg PO [facility] Last Admin: 10/26/16 22:08 Dose: 10 mg Oxycodone HCl (Roxicodone -) 2.5 mg PO Q4H PRN PRN Reason: PAIN Potassium Chloride (K-Dur -) 20 meq PO DAILY [facility] Last Admin: 10/27/16 10:06 Dose: 20 meq Pregabalin (Lyrica -) 50 mg PO BID [facility] Last Admin: 10/27/16 10:07 Dose: 50 mg Propylthiouracil (Ptu -) 50 mg PO DAILY [facility] Last Admin: 10/27/16 10:07 Dose: 50 mg Ranitidine HCl (Zantac -) 150 mg PO BID [facility] Last Admin: 10/27/16 10:06 Dose: 150 mg Warfarin Sodium (Coumadin -) 2.5 mg PO DAILY@1800 [facility] Last Admin: 10/25/16 18:02 Dose: 2.5 mg - Objective Vital Signs: Vital Signs Temperature 98.5 F 10/27/16 10:00 Pulse Rate 109 H 10/27/16 10:35 Respiratory Rate 18 10/27/16 10:00 Blood Pressure 124/75 10/27/16 10:00 O2 Sat by Pulse Oximetry (%) 97 10/27/16 10:35 Constitutional: Yes: Well Nourished, No Distress, Calm Cardiovascular: Yes: Pulse Irregular. No: Tachycardia, Gallop, Murmur, Rub Respiratory: Yes: Regular, CTA Bilaterally. No: Rales, Rhonchi, Wheezes Gastrointestinal: Yes: Normal Bowel Sounds, Soft. No: Distention, Tenderness Extremities: Yes: WNL Edema: No Labs: CBC, BMP 10/27/16 06:50 10/27/16 06:50 INR, PTT INR 1.49 (0.82-1.09) H 10/27/16 06:50 Problem List - Problems (1) Anemia Assessment/Plan: -secondary to multiple myeloma -s/p transfusion -stable -hematology following Code(s): D64.9 - ANEMIA, UNSPECIFIED (2) Weakness Assessment/Plan: -PT consulted Code(s): R53.1 - WEAKNESS (3) Atrial fibrillation Assessment/Plan: -rate controlled -continue metoprolol and diltiazem -increase dose of coumadin today, INR subtherapeutic Code(s): I48.91 - UNSPECIFIED ATRIAL FIBRILLATION Qualifiers: Atrial fibrillation type: chronic Qualified Code(s): I48.2 - Chronic atrial fibrillation (4) Congestive heart failure Assessment/Plan: -controlled -continue IV lasix today -possible change to oral tomorrow Code(s): I50.9 - HEART FAILURE, UNSPECIFIED Qualifiers: Congestive heart failure type: diastolic Congestive heart failure chronicity: chronic Qualified Code(s): I50.32 - Chronic diastolic ( congestive) heart failure (5) Diabetes mellitus Assessment/Plan: -continue metformin Code(s): E11.9 - TYPE 2 DIABETES MELLITUS WITHOUT COMPLICATIONS (6) Multiple myeloma Assessment/Plan: -hematology following -weekend notes reviewed -defer treatment to hematology Code(s): C90.00 - MULTIPLE MYELOMA NOT HAVING ACHIEVED REMISSION Qualifiers: Multiple myeloma remission status: not in remission Qualified Code(s ): C90.00 - Multiple myeloma not having achieved remission
[2016-10-27] MEDS ORDERED: WARFARIN NA 5 MG TABLET (UD) PO ONE (18:00)
[2016-10-27] MEDS: ATORVASTATIN CA 20 MG TABLET (FP) PO SCH (22:12)
[2016-10-27] MEDS: MONTELUKAST NA 10 MG TABLET PO SCH (22:13)
[2016-10-28] MEDS: ALBUTEROL SO4 0.083% IH SOL 2.5 MG/3 ML VIAL.NEB. NEB SCH ×4 (06:11→23:06)
[2016-10-28] MEDS: IPRATROPIUM BR 0.02% 0.5 MG/2.5 ML VIAL.NEB. NEB SCH ×4 (06:11→23:06)
[2016-10-28 08:43] LABS: MCH 29.3 pg (25.7-33.7); MCHC 32.5 g/dl (32.0-36.0); MEAN CELL VOLUME 90.4 fl (80-96); MEAN PLT VOLUME 8.7 fl (7.5-11.1); PLATELET COUNT 200 K/MM3 (134-434); RDW 16.5 % (11.6-15.6); WHITE BLOOD COUNT 7.9 K/mm3 (4.0-10.0)
[2016-10-28 08:44] LABS: INR 1.62 (0.82-1.09)
[2016-10-28 09:48] LABS: ANION GAP 5 (8-16); CALCIUM 9.2 mg/dL (8.5-10.1); CO2 27 mmol/L (21-32); CREATININE 1.1 mg/dL (0.55-1.02); GLUCOSE,RANDOM 78 mg/dL (74-106); MAGNESIUM 1.9 mg/dL (1.8-2.4); PHOSPHOROUS 3.8 mg/dL (2.5-4.9)
[2016-10-28] MEDS ORDERED: PT OWN MED DRAWER 7, Y5N ONE (10:44)
[2016-10-28] MEDS: FUROSEMIDE 40 MG/4 ML INJECTABLE VIAL IVPUSH SCH (10:46)
[2016-10-28] MEDS: dilTIAZem HCL 30 MG TABLET (FP) PO SCH ×2 (10:46→23:04)
[2016-10-28] MEDS: POTASSIUM CHLORIDE TABS 20 MEQ TABLET.ER (FP) PO SCH (10:47)
[2016-10-28] MEDS: METOPROLOL TARTRATE 25 MG TABLET (FP) PO SCH (10:47)
[2016-10-28] MEDS: CHOLECALCIFEROL (VITAMIN D3) 1,000 UNIT TABLET (FP) PO SCH (10:48)
[2016-10-28] MEDS: PREGABALIN 50 MG CAPSULE PO SCH ×2 (10:48→23:03)
[2016-10-28] MEDS: PROPYLTHIOURACIL 50 MG TABLET (UD) PO SCH (10:48)
[2016-10-28] MEDS: RANITIDINE HCL 150 MG TABLET (FP) PO SCH ×2 (10:49→23:04)
[2016-10-28 11:04] LABS: METAMYELOCYTE 1 % (0-2); PLATELET ESTIMATE ADEQUATE (NORMAL)
[2016-10-28 11:05] LABS: ANISOCYTOSIS 1+
--- NOTE | 2016-10-28 12:03 | PN ---
Progress Note, Physician Chief Complaint: Ms Sanchez complains of leg pain, but not worse than yesterday. No cp, sob, n/ v. - Current Medication List Current Medications: Active Medications Albuterol Sulfate (Ventolin 0.083% Nebulizer Soln -) 1 amp NEB QIDR [facility] Last Admin: 10/28/16 11:10 Dose: 1 amp Atorvastatin Calcium (Lipitor -) 20 mg PO [facility] Last Admin: 10/27/16 22:12 Dose: 20 mg Cholecalciferol (Vitamin D3 -) 2,000 unit PO DAILY [facility] Last Admin: 10/28/16 10:48 Dose: 2,000 unit Diltiazem HCl (Cardizem -) 60 mg PO BID [facility] Last Admin: 10/28/16 10:46 Dose: 60 mg Furosemide (Lasix Injection -) 40 mg IVPUSH DAILY [facility] Last Admin: 10/28/16 10:46 Dose: 40 mg Ipratropium [place] (Atrovent 0.02% [facility]ulizer -) [facility] Last Admin: 10/28/16 11:10 Dose: 1 amp Metformin HCl (Glucophage Xr -) 500 mg PO DAILY@0700 [facility] Last Admin: 10/28/16 07:26 Dose: 500 mg Metoprolol Tartrate (Lopressor -) 25 mg PO DAILY [facility] Last Admin: 10/28/16 10:47 Dose: 25 mg Montelukast Sodium (Singulair -) 10 mg PO [facility] Last Admin: 10/27/16 22:13 Dose: 10 mg Oxycodone HCl (Roxicodone -) 2.5 mg PO Q4H PRN PRN Reason: PAIN Potassium Chloride (K-Dur -) 20 meq PO DAILY [facility] Last Admin: 10/28/16 10:47 Dose: 20 meq Pregabalin (Lyrica -) 50 mg PO BID [facility] Last Admin: 10/28/16 10:48 Dose: 50 mg Propylthiouracil (Ptu -) 50 mg PO DAILY [facility] Last Admin: 10/28/16 10:48 Dose: 50 mg Ranitidine HCl (Zantac -) 150 mg PO BID [facility] Last Admin: 10/28/16 10:49 Dose: 150 mg Warfarin Sodium (Coumadin -) 5 mg PO DAILY@1800 [facility] - Objective Vital Signs: Vital Signs Temperature 97.8 F 10/28/16 10:00 Pulse Rate 89 10/28/16 11:20 Respiratory Rate 18 10/28/16 10:00 Blood Pressure 114/71 10/28/16 10:00 O2 Sat by Pulse Oximetry (%) 97 10/28/16 11:20 Constitutional: Yes: Well Nourished, No Distress, Calm Cardiovascular: Yes: Regular Rate and Rhythm. No: Gallop, Murmur, Rub Respiratory: Yes: Regular, CTA Bilaterally. No: Rales, Rhonchi, Wheezes Gastrointestinal: Yes: Normal Bowel Sounds, Soft. No: Distention, Tenderness Extremities: Yes: WNL Edema: No Labs: CBC, BMP 10/28/16 07:15 10/28/16 07:15 INR, PTT INR 1.62 (0.82-1.09) H 10/28/16 07:15 Problem List - Problems (1) Anemia Code(s): D64.9 - ANEMIA, UNSPECIFIED Qualifiers: Anemia type: unspecified type Qualified Code(s): D64.9 - Anemia, unspecified (2) Weakness Code(s): R53.1 - WEAKNESS (3) Atrial fibrillation Code(s): I48.91 - UNSPECIFIED ATRIAL FIBRILLATION Qualifiers: Atrial fibrillation type: chronic Qualified Code(s): I48.2 - Chronic atrial fibrillation (4) Congestive heart failure Code(s): I50.9 - HEART FAILURE, UNSPECIFIED Qualifiers: Congestive heart failure type: diastolic Congestive heart failure chronicity: chronic Qualified Code(s): I50.32 - Chronic diastolic ( congestive) heart failure (5) Diabetes mellitus Code(s): E11.9 - TYPE 2 DIABETES MELLITUS WITHOUT COMPLICATIONS (6) Multiple myeloma Code(s): C90.00 - MULTIPLE MYELOMA NOT HAVING ACHIEVED REMISSION Qualifiers: Multiple myeloma remission status: not in remission Qualified Code(s ): C90.00 - Multiple myeloma not having achieved remission Assessment/Plan (1) Anemia Assessment/Plan: -secondary to multiple myeloma -s/p transfusion -stable -hematology following Code(s): D64.9 - ANEMIA, UNSPECIFIED (2) Weakness Assessment/Plan: -PT consulted and following Code(s): R53.1 - WEAKNESS (3) Atrial fibrillation Assessment/Plan: -rate controlled -continue metoprolol and diltiazem -continue coumadin 5mg daily, recheck INR tomorrow Code(s): I48.91 - UNSPECIFIED ATRIAL FIBRILLATION Qualifiers: Atrial fibrillation type: chronic Qualified Code(s): I48.2 - Chronic atrial fibrillation (4) Congestive heart failure Assessment/Plan: -controlled -change to bumex Code(s): I50.9 - HEART FAILURE, UNSPECIFIED Qualifiers: Congestive heart failure type: diastolic Congestive heart failure chronicity: chronic Qualified Code(s): I50.32 - Chronic diastolic ( congestive) heart failure (5) Diabetes mellitus Assessment/Plan: -continue metformin Code(s): E11.9 - TYPE 2 DIABETES MELLITUS WITHOUT COMPLICATIONS (6) Multiple myeloma Assessment/Plan: -case d/w hematology -further treatment as an outpatient Code(s): C90.00 - MULTIPLE MYELOMA NOT HAVING ACHIEVED REMISSION Qualifiers: Multiple myeloma remission status: not in remission Qualified Code(s ): C90.00 - Multiple myeloma not having achieved remission Dispo -d/c planning -family seems reluctant to take patient back home -broached topic of STR -gave 24 hour notice for possible discharge to patient and family today
--- NOTE | 2016-10-28 14:53 | PN ---
Progress Note (short form) - Note Progress Note: Patient seen and examined. Patient has pain in her legs which she says was post surgery few years ago after her hip surgery Last Vital Signs Temp Pulse Resp BP Pulse Ox 97.8 F 89 18 114/71 97 10/28/16 10:00 10/28/16 11:20 10/28/16 10:00 10/28/16 10:00 10/28/16 11:20 Current Medications Generic Name Dose Route Start Last Admin Trade Name Freq PRN Reason Stop Dose Admin Albuterol Sulfate 1 amp 10/25/16 00:00 10/28/16 11:10 Ventolin 0.083% Nebulizer Soln - NEB 1 amp QIDR BURKE Administration Atorvastatin Calcium 20 mg 10/24/16 22:00 10/27/16 22:12 Lipitor - PO 20 mg HS BURKE Administration Cholecalciferol 2,000 unit 10/25/16 10:00 10/28/16 10:48 Vitamin D3 - PO 2,000 unit DAILY BURKE Administration Diltiazem HCl 60 mg 10/24/16 22:00 10/28/16 10:46 Cardizem - PO 60 mg BID BURKE Administration Furosemide 40 mg 10/25/16 10:00 10/28/16 10:46 Lasix Injection - IVPUSH 40 mg DAILY BURKE Administration Ipratropium [place] 1 amp 10/25/16 00:00 10/28/16 11:10 Atrovent 0.02% Nebulizer - NEB 1 amp QIDR BURKE Administration Metformin HCl 500 mg 10/25/16 07:00 10/28/16 07:26 Glucophage Xr - PO 500 mg DAILY@0700 BURKE Administration Metoprolol Tartrate 25 mg 10/25/16 10:00 10/28/16 10:47 Lopressor - PO 25 mg DAILY BURKE Administration Montelukast Sodium 10 mg 10/24/16 22:00 10/27/16 22:13 Singulair - PO 10 mg HS BURKE Administration Oxycodone HCl 2.5 mg 10/24/16 19:25 Roxicodone - PO Q4H PRN PAIN Potassium Chloride 20 meq 10/25/16 10:00 10/28/16 10:47 K-Dur - PO 20 meq DAILY BURKE Administration Pregabalin 50 mg 10/24/16 22:00 10/28/16 10:48 Lyrica - PO 50 mg BID BURKE Administration Propylthiouracil 50 mg 10/25/16 10:00 10/28/16 10:48 Ptu - PO 50 mg DAILY BURKE Administration Ranitidine HCl 150 mg 10/24/16 22:00 10/28/16 10:49 Zantac - PO 150 mg BID BURKE Administration Warfarin Sodium 5 mg 10/28/16 18:00 Coumadin - PO DAILY@1800 BURKE CBC, BMP 10/28/16 07:15 10/28/16 07:15 Assessment/Plan: IgG [place] Multiple Myeloma Anemia Afib on coumadin Extensive bony disease Plan: -recommend symptomatic management -discussed with son ( ) about the potential treatment options. He is interested in considering steroids and is OK to be started . Discussed about the oral immunomodulatory and proteosome inhibitors ( Revlimid/ Ixazomib ). He would need to discuss about that with his brother. I've also given our office information to him to see us in office if a decision is made in regards to the oral therapy. -no indications currently for emergent treatment [no hypercalcemia or renal failure] -will start dex 40mg PO for four days with PPI ppx. -Bisphosphonates once dental clearance. -INR monitoring for afib Discussed with Problem List - Problems (1) Anemia Code(s): D64.9 - ANEMIA, UNSPECIFIED Qualifiers: Anemia type: unspecified type Qualified Code(s): D64.9 - Anemia, unspecified (2) Multiple myeloma Code(s): C90.00 - MULTIPLE MYELOMA NOT HAVING ACHIEVED REMISSION Qualifiers: Multiple myeloma remission status: not in remission Qualified Code(s ): C90.00 - Multiple myeloma not having achieved remission (3) Atrial fibrillation Code(s): I48.91 - UNSPECIFIED ATRIAL FIBRILLATION Qualifiers: Atrial fibrillation type: chronic Qualified Code(s): I48.2 - Chronic atrial fibrillation
[2016-10-28] MEDS ORDERED: DEXAMETHASONE 0.5 MG TABLET PO SCH (15:15)
[2016-10-28] MEDS ORDERED: DEXAMETHASONE 4 MG TABLET (FP) PO SCH (17:29)
[2016-10-28] MEDS: WARFARIN NA 5 MG TABLET (UD) PO SCH (18:29)
[2016-10-28] MEDS: DEXAMETHASONE 4 MG TABLET (FP) PO SCH (18:30)
[2016-10-28] MEDS: MONTELUKAST NA 10 MG TABLET PO SCH (23:03)
[2016-10-28] MEDS: ATORVASTATIN CA 20 MG TABLET (FP) PO SCH (23:04)
[2016-10-29 00:07] LABS: A/G RATIO 0.5 (0.7-1.7); ALBUMIN 3.8 g/dL (2.9-4.4); GLOBULIN, TOTAL 7.7 g/dL (2.2-3.9); M-SPIKE 5.5 g/dL (Not Observed); TOTAL PROTEIN 11.5 g/dL (6.0-8.5)
[2016-10-29] MEDS: IPRATROPIUM BR 0.02% 0.5 MG/2.5 ML VIAL.NEB. NEB SCH ×3 (06:30→16:25)
[2016-10-29] MEDS: ALBUTEROL SO4 0.083% IH SOL 2.5 MG/3 ML VIAL.NEB. NEB SCH ×3 (06:30→18:25)
[2016-10-29 07:49] LABS: MCHC 32.2 g/dl (32.0-36.0); MEAN PLT VOLUME 8.6 fl (7.5-11.1); PLATELET COUNT 209 K/MM3 (134-434); RDW 16.3 % (11.6-15.6); WHITE BLOOD COUNT 11.5 K/mm3 (4.0-10.0)
[2016-10-29 07:54] LABS: INR 1.82 (0.82-1.09); PROTHROMBIN TIME (PATIENT) 20.3 SEC (9.98-11.88)
[2016-10-29 08:46] LABS: ANION GAP 8 (8-16); CALCIUM 9.4 mg/dL (8.5-10.1); CO2 24 mmol/L (21-32); CREATININE 1.2 mg/dL (0.55-1.02); GLUCOSE,RANDOM 149 mg/dL (74-106); MAGNESIUM 1.9 mg/dL (1.8-2.4); PHOSPHOROUS 4.1 mg/dL (2.5-4.9)
[2016-10-29] MEDS: dilTIAZem HCL 30 MG TABLET (FP) PO SCH ×2 (09:16→21:42)
[2016-10-29] MEDS: CHOLECALCIFEROL (VITAMIN D3) 1,000 UNIT TABLET (FP) PO SCH (09:16)
[2016-10-29] MEDS: RANITIDINE HCL 150 MG TABLET (FP) PO SCH ×2 (09:16→21:44)
[2016-10-29] MEDS: PREGABALIN 50 MG CAPSULE PO SCH ×2 (09:17→21:43)
[2016-10-29] MEDS: METOPROLOL TARTRATE 25 MG TABLET (FP) PO SCH (09:17)
[2016-10-29] MEDS: FUROSEMIDE 40 MG/4 ML INJECTABLE VIAL IVPUSH SCH (09:18)
[2016-10-29] MEDS: PROPYLTHIOURACIL 50 MG TABLET (UD) PO SCH (09:18)
[2016-10-29] MEDS: POTASSIUM CHLORIDE TABS 20 MEQ TABLET.ER (FP) PO SCH (09:18)
[2016-10-29] MEDS: DEXAMETHASONE 4 MG TABLET (FP) PO SCH (09:25)
[2016-10-29] MEDS: oxyCODONE HCL 5 MG TABLET PO PRN (09:25)
--- NOTE | 2016-10-29 11:51 | CONSULT ---
Admitting History and Physical - Primary Care Physician PCP: Landry Simpson - Admission History of Present Illness: Per RD: Diet: Diabetic diet with Glucerna Shake TID; states appetite is fair Diet hx: takes Glucerna Shake at home- 0 to TID daily; Some chewing difficulty r/t upper dentures; own bottom teeth; dentures don' t fit well; generally tolerates soft foods Selected Entries 10/27/16 10/27/16 10/28/16 10:55 14:59 02:02 Breakfast 50% Lunch 75% Temperature 98.2 F 10/28/16 10/28/16 10/28/16 06:00 10:00 14:50 Breakfast 25% Lunch 50% Temperature 97.9 F 97.8 F 98.0 F 10/28/16 10/28/16 10/29/16 19:15 21:34 06:00 Breakfast 25% Lunch 50% Temperature 97.9 F 97.7 F 10/29/16 10:00 Breakfast Lunch Temperature 97.0 F L Laboratory Tests 10/28/16 10/29/16 07:15 06:20 WBC 7.9 11.5 H D Started on Steroids. 10/24 CXR noted. Repeat CXR ordered. Coughing noted by staff. This is my first consult with this pt. History Source: Patient, Family Member, Medical Record Limitations to Obtaining History: No Limitations - Past Medical History Cardiovascular: Yes: AFIB, HTN, Hyperlipdemia Pulmonary: Yes: COPD Renal/: Yes: UTI (recent Hx of ESBL UTI) Heme/Onc: Yes: Anemia, Other (multiple myeloma) Endocrine: Yes: Diabetes Mellitus - Past Surgical History Past Surgical History: Yes: Joint Replacement - Smoking History Smoking history: Former smoker Have you smoked in the past 12 months: No Aproximately how many cigarettes per day: 0 If you are a former smoker, when did you quit?: 1989 - Alcohol/Substance Use Hx Alcohol Use: No History of Substance Use: reports: None - Social History ADL: Support Services Occupation: Retired History of Recent Travel: No History - Admission Reason For Visit: ANEMIA; WEAKNESS - Diagnostics X-ray: Report Reviewed - General Mental Status: Alert and Oriented, Awake and Alert, Able to Follow Commands Attention: Intact Ability to Follow Directions: Good Head/Neck Control: Needs Assist - Hearing Hearing: Normal, Both Speech Evaluation - Communication Primary Language: TELUGU Communication: Yes: Within Normal Limits - Speech Production Able to Make Needs Known: Yes: WNL - Speech Characteristics Voice Loudness: Mildly Soft/Quiet Voice Pitch: Yes: Mildly High Voice Phonatory-based Quality: Yes: Weak Speech Pattern: Normal Nasal Resonance: Normal Articulation: Yes: Precise Rate of Speech: Intact - Language/Auditory Comprehension Follows: Yes: 2 Stage Simple Commands - Language/Verbal Expression Able to Respond to Simple Queries: Yes: WNL Able to Communicate Wants and Needs: Yes: WNL Functional Communication Status: Yes: WNL - Swallow Evaluation/Bedside Assessment Current Nutritional Intake: Soft, Thin Liquids Oral Secretions: Yes: WFL Dentition: Yes: Missing Teeth (no lower lateral teeth, used for mastication.), Dental Appliance Upper (fit seems ok) Facial Symmetry at Rest: Symmetrical Facial Symmetry on Retraction: Symmetrical Facial Movement: Controlled Sensation: Normal Against Resistance Opening: Weak Against Resistance Closing: Weak Pucker Lips: Normal Smile: Normal Lingual Movement: Normal, Symmetric Lingual Speed of Movement: Normal Lingual Movement Strgth Against Opposition: Normal Lingual Movement Characteristics: Normal Laryngeal Movement: Able to Palpate, Labored,delay initiation Rate of Intake: WFL Bolus Size: Small Labial Seal: WFL Chewing: Impaired (limited, sec missing dentition) Oral Prep Time: WFL A-P Transit: WFL Pocketing: None Timing of Swallow: Delayed Coughing/Throat Clear: No Change in Voice: No Recommendations - Speech Evaluation, Impression/Plan Impression: Weak voice. Missing lower,lateral teeth adversely affecting mastication. Son present to cut up food for each meal. Swallow delayed but fairly strong. One instance of brief throat clear with water. Mostly tolerating overtly. - Dysphagia Impressions/Plan Dysphagia Impressions: Mild Impairment, Ongoing Evaluation *Silent aspiration: cannot be R/O at bedside Dysphagia Treatment Plan: Chin Tuck/Down, Safe Rate, 1/2 tsp. at a time, Elevate HOB during feed Recommendations: Modified Barium Swallow (if cough persists, or infiltrates c/w aspiration demonstrated on pending cxr) - Recommendations Diet Consistency: Other (Very soft easy to chew foods. Pt requesting [place] a couple of times daily.) Liquids: Thin Liquids Supplement: Glucerna
--- NOTE | 2016-10-29 12:07 | PN ---
Progress Note, Physician Chief Complaint: Ms Sanchez says her leg pain is worse today. Also says she has a painful cough that is not productive. Complains that sometimes she has a hard time swallowing. Not short of breath. No chest pain or nausea/vomiting. - Current Medication List Current Medications: Active Medications Albuterol Sulfate (Ventolin 0.083% Nebulizer Soln -) 1 amp NEB QIDR [facility] Last Admin: 10/29/16 06:30 Dose: 1 amp Atorvastatin Calcium (Lipitor -) 20 mg PO [facility] Last Admin: 10/28/16 23:04 Dose: 20 mg Cholecalciferol (Vitamin D3 -) 2,000 unit PO DAILY [facility] Last Admin: 10/29/16 09:16 Dose: 2,000 unit Dexamethasone (Decadron -) 40 mg PO DAILY [facility] Last Admin: 10/29/16 09:25 Dose: 40 mg Diltiazem HCl (Cardizem -) 60 mg PO BID [facility] Last Admin: 10/29/16 09:16 Dose: 60 mg Furosemide (Lasix Injection -) 40 mg IVPUSH DAILY [facility] Last Admin: 10/29/16 09:18 Dose: 40 mg Guaifenesin/Codeine Phosphate (Robitussin Ac -) 5 ml PO TID PRN PRN Reason: COUGH Ipratropium [place] (Atrovent 0.02% Nebulizer -) 1 amp NEB QIDR [facility] Last Admin: 10/29/16 06:30 Dose: 1 amp Metformin HCl (Glucophage Xr -) 500 mg PO DAILY@0700 [facility] Last Admin: 10/29/16 06:16 Dose: 500 mg Metoprolol Tartrate (Lopressor -) 25 mg PO DAILY [facility] Last Admin: 10/29/16 09:17 Dose: 25 mg Montelukast Sodium (Singulair -) 10 mg PO [facility] Last Admin: 10/28/16 23:03 Dose: 10 mg Oxycodone HCl (Roxicodone -) 2.5 mg PO Q4H PRN PRN Reason: PAIN Last Admin: 10/29/16 09:25 Dose: 2.5 mg Potassium Chloride (K-Dur -) 20 meq PO DAILY [facility] Last Admin: 10/29/16 09:18 Dose: 20 meq Pregabalin (Lyrica -) 50 mg PO BID [facility] Last Admin: 10/29/16 09:17 Dose: 50 mg Propylthiouracil (Ptu -) 50 mg PO DAILY [facility] Last Admin: 10/29/16 09:18 Dose: 50 mg Ranitidine HCl (Zantac -) 150 mg PO BID [facility] Last Admin: 10/29/16 09:16 Dose: 150 mg Warfarin Sodium (Coumadin -) 5 mg PO DAILY@1800 [facility] Last Admin: 10/28/16 18:29 Dose: 5 mg - Objective Vital Signs: Vital Signs Temperature 36.1 C L 10/29/16 10:00 Pulse Rate 108 H 10/29/16 10:00 Respiratory Rate 22 10/29/16 10:00 Blood Pressure 122/74 10/29/16 10:00 O2 Sat by Pulse Oximetry (%) 97 10/28/16 21:34 Constitutional: Yes: Well Nourished, No Distress, Calm, Diaphoresis Cardiovascular: Yes: Tachycardia, Pulse Irregular. No: Gallop, Murmur, Rub Respiratory: Yes: Regular, CTA Bilaterally. No: On Nasal O2, Rales, Rhonchi, Wheezes Gastrointestinal: Yes: Normal Bowel Sounds, Soft. No: Distention, Tenderness Extremities: Yes: WNL Edema: No Labs: CBC, BMP 10/29/16 06:20 10/29/16 06:20 INR, PTT INR 1.82 (0.82-1.09) H 10/29/16 06:20 Problem List - Problems (1) Anemia Code(s): D64.9 - ANEMIA, UNSPECIFIED Qualifiers: Anemia type: unspecified type Qualified Code(s): D64.9 - Anemia, unspecified (2) Weakness Code(s): R53.1 - WEAKNESS (3) Atrial fibrillation Code(s): I48.91 - UNSPECIFIED ATRIAL FIBRILLATION Qualifiers: Atrial fibrillation type: chronic Qualified Code(s): I48.2 - Chronic atrial fibrillation (4) Congestive heart failure Code(s): I50.9 - HEART FAILURE, UNSPECIFIED Qualifiers: Congestive heart failure type: diastolic Congestive heart failure chronicity: chronic Qualified Code(s): I50.32 - Chronic diastolic ( congestive) heart failure (5) Diabetes mellitus Code(s): E11.9 - TYPE 2 DIABETES MELLITUS WITHOUT COMPLICATIONS (6) Multiple myeloma Code(s): C90.00 - MULTIPLE MYELOMA NOT HAVING ACHIEVED REMISSION Qualifiers: Multiple myeloma remission status: not in remission Qualified Code(s ): C90.00 - Multiple myeloma not having achieved remission Assessment/Plan (1) Anemia Assessment/Plan: -secondary to multiple myeloma -s/p transfusion -stable -hematology following Code(s): D64.9 - ANEMIA, UNSPECIFIED (2) Weakness Assessment/Plan: -PT consulted and following Code(s): R53.1 - WEAKNESS (3) Atrial fibrillation Assessment/Plan: -elevated, suspect secondary to pain -consult cardiology -continue current regimen -continue coumadin 5mg daily Code(s): I48.91 - UNSPECIFIED ATRIAL FIBRILLATION Qualifiers: Atrial fibrillation type: chronic Qualified Code(s): I48.2 - Chronic atrial fibrillation (4) Congestive heart failure Assessment/Plan: -controlled -change to bumex today Code(s): I50.9 - HEART FAILURE, UNSPECIFIED Qualifiers: Congestive heart failure type: diastolic Congestive heart failure chronicity: chronic Qualified Code(s): I50.32 - Chronic diastolic ( congestive) heart failure (5) Diabetes mellitus Assessment/Plan: -continue metformin Code(s): E11.9 - TYPE 2 DIABETES MELLITUS WITHOUT COMPLICATIONS (6) Multiple myeloma Assessment/Plan: -started on decadron Code(s): C90.00 - MULTIPLE MYELOMA NOT HAVING ACHIEVED REMISSION Qualifiers: Multiple myeloma remission status: not in remission Qualified Code(s ): C90.00 - Multiple myeloma not having achieved remission (7) Cough -will repeat chest x-ray -prn robitussin (8) Dysphagia -speech therapy consult
[2016-10-29 12:35] LABS: METAMYELOCYTE 1 % (0-2)
[2016-10-29 12:36] LABS: PLATELET ESTIMATE ADEQUATE (NORMAL)
--- NOTE | 2016-10-29 15:55 | PN ---
Progress Note (short form) - Note Progress Note: Patient seen and examined. son at bedside Last Vital Signs Temp Pulse Resp BP Pulse Ox 97.0 F L 99 H 22 122/74 98 10/29/16 10:00 10/29/16 12:05 10/29/16 10:00 10/29/16 10:00 10/29/16 12:05 CBC, BMP 10/29/16 06:20 10/29/16 06:20 Current Medications Generic Name Dose Route Start Last Admin Trade Name Freq PRN Reason Stop Dose Admin Albuterol Sulfate 1 amp 10/25/16 00:00 10/29/16 12:20 Ventolin 0.083% Nebulizer Soln - NEB 1 amp QIDR [facility]URKE Administration Atorvastatin Calcium 20 mg 10/24/16 22:00 10/28/16 23:04 Lipitor - PO 20 mg HS BURKE Administration Bumetanide 1 mg 10/31/16 10:00 Bumex - PO Q2D@1000 BURKE Cholecalciferol 2,000 unit 10/25/16 10:00 10/29/16 09:16 Vitamin D3 - PO 2,000 unit DAILY BURKE Administration Dexamethasone 40 mg 10/28/16 18:15 10/29/16 09:25 Decadron - PO 40 mg DAILY BURKE Administration Diltiazem HCl 60 mg 10/24/16 22:00 10/29/16 09:16 Cardizem - PO 60 mg BID BURKE Administration Guaifenesin/Codeine Phosphate 5 ml 10/29/16 11:38 Robitussin Ac - PO TID PRN COUGH Ipratropium [place] 1 amp 10/25/16 00:00 10/29/16 12:50 Atrovent 0.02% Nebulizer - NEB 1 amp QIDR BURKE Administration Metformin HCl 500 mg 10/25/16 07:00 10/29/16 06:16 Glucophage Xr - PO 500 mg DAILY@0700 BURKE Administration Metoprolol Tartrate 25 mg 10/25/16 10:00 10/29/16 09:17 Lopressor - PO 25 mg DAILY BURKE Administration Montelukast Sodium 10 mg 10/24/16 22:00 10/28/16 23:03 Singulair - PO 10 mg HS BURKE Administration Oxycodone HCl 2.5 mg 10/24/16 19:25 10/29/16 09:25 Roxicodone - PO 2.5 mg Q4H PRN Administration PAIN Potassium Chloride 20 meq 10/25/16 10:00 10/29/16 09:18 K-Dur - PO 20 meq DAILY B[facility]KE Administration Pregabalin 50 mg 10/24/16 22:00 10/29/16 09:17 Lyrica - PO 50 mg BID BURKE Administration Propylthiouracil 50 mg 10/25/16 10:00 10/29/16 09:18 Ptu - PO 50 mg DAILY BURKE Administration Ranitidine HCl 150 mg 10/24/16 22:00 10/29/16 09:16 Zantac - PO 150 mg BID BURKE Administration Warfarin Sodium 5 mg 10/28/16 18:00 10/28/16 18:29 Coumadin - PO 5 mg DAILY@1800 BURKE Administration Assessment/Plan: IgG [place] Multiple Myeloma Anemia Afib on coumadin Extensive bony disease from Myeloma Plan: -recommend symptomatic management -started on Dex 40mg (D2 today). -Discussed with son at bedside again today, he informed that his mom did not wanted any chemo to be given for her, so he did not want to get any chemotherapy , but on the same note he did again tell that he needed to discuss with his siblings -discussed about hospice, he said , they aren't ready for it yet as they interested in receiving blood transfusions upon need, which the hospice would be an exclusion ( they had enquired about this last admission) -supportive care. -INR monitoring for afib Problem List - Problems (1) Anemia Code(s): D64.9 - ANEMIA, UNSPECIFIED Qualifiers: Anemia type: unspecified type Qualified Code(s): D64.9 - Anemia, unspecified (2) Multiple myeloma Code(s): C90.00 - MULTIPLE MYELOMA NOT HAVING ACHIEVED REMISSION Qualifiers: Multiple myeloma remission status: not in remission Qualified Code(s ): C90.00 - Multiple myeloma not having achieved remission (3) Atrial fibrillation Code(s): I48.91 - UNSPECIFIED ATRIAL FIBRILLATION Qualifiers: Atrial fibrillation type: chronic Qualified Code(s): I48.2 - Chronic atrial fibrillation
--- NOTE | 2016-10-29 17:20 | CON.CARD ---
Cardiology Consult (text) - Consultation Consultation Note: CC: afib 86 yo with h/o afib, diastolic CHF, htn, hl, h/o rheumatic fever, mild-moderate MR, Dm, meningioma, multiple myeloma, subclinical hyperthyroidism on PTU who presents with recurrent anemia 2/2 multiple myeloma. On last discharge received IVF for hypercalcemia and was discharged on bumex 1 mg QOD. After discharge was uptitrated back to prior dose of 2 mg daily due to worsening LE edema. Recently LE stable. chronic dyspnea stable. She denies orthopnea, pnd, le edema, palps, lightheadedness, bleeding, or transient neurologic symptoms. + fatigue She denies fevers, chills, sweats, nausea, vomiting, diarrhea, headache, congestion, visual disturbances. PO intake stable. Has been receiving lasix 40 mg IV daily here. Planning on transitioning to outpatient bumex. PMhx: per hpi Family hx: sister with PPM Social hx: former smoker , no etoh or illicits ROS: Per HPI. Ambulatory Orders Atorvastatin Ca [Lipitor] 20 mg PO HS 08/14/16 Diltiazem [Cardizem -] 60 mg PO BID 08/14/16 Ergocalciferol (Vitamin D2) [Vitamin D2] 2,000 unit PO DAILY 08/14/16 Metformin HCl [Metformin HCl ER] 500 mg PO DAILY 08/14/16 Metoprolol Tartrate [Lopressor -] 25 mg PO DAILY 08/14/16 Montelukast Na [Singulair -] 10 mg PO HS 08/14/16 Potassium Chloride [Klor-Con] 20 meq PO DAILY 08/14/16 Pregabalin [Lyrica -] 50 mg PO BID 08/14/16 Propylthiouracil 50 mg PO DAILY 08/14/16 Ranitidine [Zantac -] 150 mg PO BID 08/14/16 Albuterol 0.083% Nebulizer [place] [Ventolin 0.083% Nebulizer Soln -] 1 amp NEB Q6H PRN #30 amp 08/26/16 Ipratropium 0.02% Nebulizer [Atrovent 0.02% Nebulizer -] 1 amp NEB Q6H PRN #30 amp 08/26/16 Oxycodone HCl [Roxicodone -] 2.5 mg PO Q4H PRN #60 tablet MDD 30mg 08/26/16 Warfarin Na [Coumadin -] 2.5 mg PO DAILY@1800 tablet 08/26/16 Bumetanide [Bumex -] 1 mg PO Q2D@1000 #30 tablet 08/27/16 Current Medications Albuterol Sulfate (Ventolin 0.083% Nebulizer Soln -) 1 amp NEB QIDR [facility] Last Admin: 10/29/16 12:20 Dose: 1 amp Atorvastatin Calcium (Lipitor -) 20 mg PO HS [facility] Last Admin: 10/28/16 23:04 Dose: 20 mg Bumetanide (Bumex -) 1 mg PO Q2D@1000 [facility] Cholecalciferol (Vitamin D3 -) 2,000 unit PO DAILY [facility] Last Admin: 10/29/16 09:16 Dose: 2,000 unit Dexamethasone (Decadron -) 40 mg PO DAILY [facility] Last Admin: 10/29/16 09:25 Dose: 40 mg Diltiazem HCl (Cardizem -) 60 mg PO BID [facility] Last Admin: 10/29/16 09:16 Dose: 60 mg Guaifenesin/Codeine Phosphate (Robitussin Ac -) 5 ml PO TID PRN PRN Reason: COUGH Ipratropium [place] (Atrovent 0.02% Nebulizer -) 1 amp NEB QIDR [facility] Last Admin: 10/29/16 12:50 Dose: 1 amp Metformin HCl (Glucophage Xr -) 500 mg PO DAILY@0700 [facility] Last Admin: 10/29/16 06:16 Dose: 500 mg Metoprolol Tartrate (Lopressor -) 25 mg PO DAILY [facility] Last Admin: 10/29/16 09:17 Dose: 25 mg Montelukast Sodium (Singulair -) 10 mg PO HS [facility] Last Admin: 10/28/16 23:03 Dose: 10 mg Oxycodone HCl (Roxicodone -) 2.5 mg PO Q4H PRN PRN Reason: PAIN Last Admin: 10/29/16 09:25 Dose: 2.5 mg Potassium Chloride (K-Dur -) 20 meq PO DAILY [facility] Last Admin: 10/29/16 09:18 Dose: 20 meq Pregabalin (Lyrica -) 50 mg PO BID [facility] Last Admin: 10/29/16 09:17 Dose: 50 mg Propylthiouracil (Ptu -) 50 mg PO DAILY [facility] Last Admin: 10/29/16 09:18 Dose: 50 mg Ranitidine HCl (Zantac -) 150 mg PO BID [facility] Last Admin: 10/29/16 09:16 Dose: 150 mg Warfarin Sodium (Coumadin -) 5 mg PO DAILY@1800 [facility] Last Admin: 10/28/16 18:29 Dose: 5 mg Vital Signs - 24 hr 10/28/16 10/28/16 10/28/16 19:15 21:34 22:58 Temperature 97.9 F Pulse Rate 89 104 H Respiratory 20 20 18 Rate Blood Pressure 118/53 113/62 O2 Sat by Pulse 97 Oximetry (%) 10/29/16 10/29/16 10/29/16 06:00 10:00 12:05 Temperature 97.7 F 97.0 F L Pulse Rate 90 108 H 99 H Respiratory 18 22 Rate Blood Pressure 99/55 122/74 O2 Sat by Pulse 98 98 Oximetry (%) 10/29/16 16:00 Temperature 98.1 F Pulse Rate 91 H Respiratory 20 Rate Blood Pressure 118/61 O2 Sat by Pulse Oximetry (%) Intake & Output 10/27/16 10/28/16 10/29/16 10/30/16 07:59 07:59 07:59 07:59 Intake Total 2335 1680 550 250 Balance 2335 1680 550 250 Weight 137 lb 12.8 oz 137 lb 2 oz NAD, calm JVD flat, neck supple irregularly irregular, nl rate nl s1, s2 2/6 murmur at sternal border and apex dullness at left base, nl eff + bs soft nt nd ext without edema no cyanosis or clubbing + dp/pt no jaundice, diaphoresis CBC, BMP 10/29/16 06:20 10/29/16 06:20 Laboratory Tests 10/24/16 10/25/16 10/29/16 14:22 07:35 06:20 INR 1.82 H Magnesium Creatine Kinase 41 Troponin I < 0.02 TSH 0.56 D 10/29/16 06:20 INR Magnesium 1.9 Creatine Kinase Troponin I TSH EKG: afib, vr 93 bpm. anterior q waves. no ischemic changes. CXR: diaphragmatic hernia obscuring lung torrez Echo 06/2015: afib, nl LV/RV, mild-mod MR/TR, hi LAP, mild ao root dil MIBI 2013: no ST changes, probable breast artifact vs. AW ischemia. Nl EF PFTs 2013: no obstr, mild restr, mild decr DLCO 86 yo with h/o afib, diastolic CHF, htn, hl, h/o rheumatic fever, mild-moderate MR, Dm, meningioma, new diagnosis of multiple myeloma, subclinical hyperthyroidism on PTU who presents with anemia Afib - well controlled at "lenient rate control" targest on home regimen: DILTIAZEM (60 AM, 60 LUNCH, 30 PM) AND LOW DOSE TOPROL (25). (has h/o bradycardia and hypotension of ? etiology--stable long time on reduced med regimen). currently on diltiazem bid, will resume outpatient diltiazem tid dosing. . - cont coumadin (goal INR 2-3), hematology following. sob, diastolic CHF, copd - multifactorial chronic sob (copd, diast chf, and ? related to very large hiatal hernia). Likely exacerbated here by anemia. - large hiatal hernia obscures most of L lung on cxr. - s/p diuresis with lasix 40 mg iv daily. appears euvolemic on exam. agree with transitioning to home regimen. per patient's son, most recently has been on bumex 2 mg daily mild-mod MR - functional, likely related to volume status - echo 06/2015 stable anemia/multiple myeloma - 2/2 multiple myeloma. s/p transfusion, heme following - monitor on coumadin Emphysema H/O WHEEZING IN PAST--STABLE OF LATE
[2016-10-29] MEDS: WARFARIN NA 5 MG TABLET (UD) PO SCH (17:43)
[2016-10-29] MEDS: MONTELUKAST NA 10 MG TABLET PO SCH (21:43)
[2016-10-29] MEDS: ATORVASTATIN CA 20 MG TABLET (FP) PO SCH (21:43)
[2016-10-30] MEDS: ALBUTEROL SO4 0.083% IH SOL 2.5 MG/3 ML VIAL.NEB. NEB SCH ×5 (00:07→23:29)
[2016-10-30] MEDS: IPRATROPIUM BR 0.02% 0.5 MG/2.5 ML VIAL.NEB. NEB SCH ×5 (00:07→23:29)
[2016-10-30] MEDS ORDERED: PT OWN MED DRAWER 7, Y5N ONE ×2 (05:43→09:03)
[2016-10-30 08:29] LABS: BASOPHIL 0.1 % (0-2.0); MCHC 32.2 g/dl (32.0-36.0); MEAN CELL VOLUME 89.9 fl (80-96); MEAN PLT VOLUME 8.6 fl (7.5-11.1); NEUTROPHILS 90.9 % (42.8-82.8); PLATELET COUNT 211 K/MM3 (134-434); RDW 16.3 % (11.6-15.6); WHITE BLOOD COUNT 10.9 K/mm3 (4.0-10.0)
[2016-10-30 08:41] LABS: INR 2.82 (0.82-1.09); PROTHROMBIN TIME (PATIENT) 31.7 SEC (9.98-11.88)
[2016-10-30 09:05] LABS: ANION GAP 10 (8-16); CALCIUM 8.9 mg/dL (8.5-10.1); CO2 25 mmol/L (21-32); CREATININE 1.1 mg/dL (0.55-1.02); GLUCOSE,RANDOM 150 mg/dL (74-106); MAGNESIUM 2.2 mg/dL (1.8-2.4); PHOSPHOROUS 2.8 mg/dL (2.5-4.9)
[2016-10-30] MEDS: oxyCODONE HCL 5 MG TABLET PO PRN ×2 (09:06→22:59)
[2016-10-30] MEDS: RANITIDINE HCL 150 MG TABLET (FP) PO SCH ×2 (09:07→22:59)
[2016-10-30] MEDS: dilTIAZem HCL 30 MG TABLET (FP) PO SCH ×5 (09:07→22:59)
[2016-10-30] MEDS: POTASSIUM CHLORIDE TABS 20 MEQ TABLET.ER (FP) PO SCH (09:07)
[2016-10-30] MEDS: PREGABALIN 50 MG CAPSULE PO SCH ×2 (09:08→22:59)
[2016-10-30] MEDS: CHOLECALCIFEROL (VITAMIN D3) 1,000 UNIT TABLET (FP) PO SCH (09:08)
[2016-10-30] MEDS: METOPROLOL TARTRATE 25 MG TABLET (FP) PO SCH (09:08)
[2016-10-30] MEDS: PROPYLTHIOURACIL 50 MG TABLET (UD) PO SCH (09:09)
[2016-10-30] MEDS: DEXAMETHASONE 4 MG TABLET (FP) PO SCH (09:09)
[2016-10-30] MEDS: guaiFENesin/CODEINE 5 ML UNIT-DOSE CUPS PO PRN (11:39)
--- NOTE | 2016-10-30 11:47 | PN ---
Progress Note, [employer] ASSISTANT - Note Progress Note: Selected Entries 10/29/16 10/29/16 10/29/16 06:00 10:00 16:00 Supper Temperature 97.7 F 97.0 F L 98.1 F 10/29/16 10/29/16 10/30/16 19:00 22:00 06:00 Supper 50% Temperature 98.0 F 96.1 F L 98.0 F Laboratory Tests 10/29/16 10/30/16 06:20 07:35 WBC 11.5 H D 10.9 H Very soft, easy to chew foods. Provide [place] 2 times daily.RD follow up appreciated. Reported to be tolerating diet so far.
[2016-10-30] MEDS: BUMETANIDE 1 MG TABLET PO SCH (11:56)
--- NOTE | 2016-10-30 16:07 | PN ---
Progress Note, Physician Chief Complaint: Ms Sanchez complains of leg pain and coughing. No cp, sob, n/v. - Current Medication List Current Medications: Active Medications Albuterol Sulfate (Ventolin 0.083% Nebulizer Soln -) 1 amp NEB QIDR [facility] Last Admin: 10/30/16 12:06 Dose: 1 amp Atorvastatin Calcium (Lipitor -) 20 mg PO [facility] Last Admin: 10/29/16 21:43 Dose: 20 mg Bumetanide (Bumex -) 2 mg PO DAILY [facility] Last Admin: 10/30/16 11:56 Dose: 2 mg Cholecalciferol (Vitamin D3 -) 2,000 unit PO DAILY [facility] Last Admin: 10/30/16 09:08 Dose: 2,000 unit Dexamethasone (Decadron -) 40 mg PO DAILY [facility] Last Admin: 10/30/16 09:09 Dose: 40 mg Diltiazem HCl (Cardizem -) 30 mg PO [facility] Diltiazem HCl (Cardizem -) 60 mg PO BID@0600,1400 [facility] Last Admin: 10/30/16 15:44 Dose: 60 mg Guaifenesin/Codeine Phosphate (Robitussin Ac -) 5 ml PO TID PRN PRN Reason: COUGH Last Admin: 10/30/16 11:39 Dose: 5 ml Ipratropium [place] (Atrovent 0.02% Nebulizer -) 1 amp NEB QIDR [facility] Last Admin: 10/30/16 12:06 Dose: 1 amp Metformin HCl (Glucophage Xr -) 500 mg PO DAILY@0700 [facility] Last Admin: 10/30/16 06:08 Dose: 500 mg Metoprolol Tartrate (Lopressor -) 25 mg PO DAILY [facility] Last Admin: 10/30/16 09:08 Dose: 25 mg Montelukast Sodium (Singulair -) 10 mg PO [facility] Last Admin: 10/29/16 21:43 Dose: 10 mg Oxycodone HCl (Roxicodone -) 2.5 mg PO Q4H PRN PRN Reason: PAIN Last Admin: 10/30/16 09:06 Dose: 2.5 mg Potassium Chloride (K-Dur -) 20 meq PO DAILY [facility] Last Admin: 10/30/16 09:07 Dose: 20 meq Pregabalin (Lyrica -) 50 mg PO BID [facility] Last Admin: 10/30/16 09:08 Dose: 50 mg Propylthiouracil (Ptu -) 50 mg PO DAILY [facility] Last Admin: 10/30/16 09:09 Dose: 50 mg Ranitidine HCl (Zantac -) 150 mg PO BID [facility] Last Admin: 10/30/16 09:07 Dose: 150 mg Warfarin Sodium (Coumadin -) 2.5 mg PO DAILY@1800 [facility] - Objective Vital Signs: Vital Signs Temperature 35.9 C L 10/30/16 16:02 Pulse Rate 73 10/30/16 16:02 Respiratory Rate 20 10/30/16 16:02 Blood Pressure 113/73 10/30/16 16:02 O2 Sat by Pulse Oximetry (%) 99 10/29/16 22:00 Constitutional: Yes: Well Nourished, No Distress, Calm Cardiovascular: Yes: Regular Rate and Rhythm. No: Gallop, Murmur, Rub Respiratory: Yes: Regular, CTA Bilaterally, Cough. No: Rales, Rhonchi, Wheezes Gastrointestinal: Yes: Normal Bowel Sounds, Soft. No: Distention, Tenderness Extremities: Yes: WNL Edema: No Labs: CBC, BMP 10/30/16 07:35 10/30/16 07:35 INR, PTT INR 2.82 (0.82-1.09) H D 10/30/16 07:35 Problem List - Problems (1) Anemia Code(s): D64.9 - ANEMIA, UNSPECIFIED Qualifiers: Anemia type: unspecified type Qualified Code(s): D64.9 - Anemia, unspecified (2) Weakness Code(s): R53.1 - WEAKNESS (3) Atrial fibrillation Code(s): I48.91 - UNSPECIFIED ATRIAL FIBRILLATION Qualifiers: Atrial fibrillation type: chronic Qualified Code(s): I48.2 - Chronic atrial fibrillation (4) Congestive heart failure Code(s): I50.9 - HEART FAILURE, UNSPECIFIED Qualifiers: Congestive heart failure type: diastolic Congestive heart failure chronicity: chronic Qualified Code(s): I50.32 - Chronic diastolic ( congestive) heart failure (5) Diabetes mellitus Code(s): E11.9 - TYPE 2 DIABETES MELLITUS WITHOUT COMPLICATIONS (6) Multiple myeloma Code(s): C90.00 - MULTIPLE MYELOMA NOT HAVING ACHIEVED REMISSION Qualifiers: Multiple myeloma remission status: not in remission Qualified Code(s ): C90.00 - Multiple myeloma not having achieved remission Assessment/Plan (1) Anemia Assessment/Plan: -secondary to multiple myeloma -s/p transfusion -stable -hematology following Code(s): D64.9 - ANEMIA, UNSPECIFIED (2) Weakness Assessment/Plan: -PT consulted and following Code(s): R53.1 - WEAKNESS (3) Atrial fibrillation Assessment/Plan: -elevated, suspect secondary to pain -consult cardiology -continue current regimen -decrease coumadin since now therapeutic Code(s): I48.91 - UNSPECIFIED ATRIAL FIBRILLATION Qualifiers: Atrial fibrillation type: chronic Qualified Code(s): I48.2 - Chronic atrial fibrillation (4) Congestive heart failure Assessment/Plan: -controlled -continue bumex Code(s): I50.9 - HEART FAILURE, UNSPECIFIED Qualifiers: Congestive heart failure type: diastolic Congestive heart failure chronicity: chronic Qualified Code(s): I50.32 - Chronic diastolic ( congestive) heart failure (5) Diabetes mellitus Assessment/Plan: -continue metformin Code(s): E11.9 - TYPE 2 DIABETES MELLITUS WITHOUT COMPLICATIONS (6) Multiple myeloma Assessment/Plan: -started on decadron Code(s): C90.00 - MULTIPLE MYELOMA NOT HAVING ACHIEVED REMISSION Qualifiers: Multiple myeloma remission status: not in remission Qualified Code(s ): C90.00 - Multiple myeloma not having achieved remission (7) Cough -continue robitussin AC prn (8) Dysphagia -speech therapy consulted and case discussed -does not appear to be aspirating at this time
[2016-10-30] MEDS: WARFARIN NA 2.5 MG TABLET (FP) PO SCH (17:21)
--- NOTE | 2016-10-30 19:35 | PN ---
Progress Note (short form) - Note Progress Note: Patient seen and examined. In nad CTA b/l Cor: RRR Abdomen: soft LE: no edema CBC, BMP 10/30/16 07:35 10/30/16 07:35 Current Medications Generic Name Dose Route Start Last Admin Trade Name Freq PRN Reason Stop Dose Admin Albuterol Sulfate 1 amp 10/25/16 00:00 10/30/16 19:09 Ventolin 0.083% Nebulizer Soln - NEB 1 amp QIDR [facility] Administration Atorvastatin Calcium 20 mg 10/24/16 22:00 10/29/16 21:43 Lipitor - PO 20 mg HS [facility] Administration Bumetanide 2 mg 10/30/16 10:00 10/30/16 11:56 Bumex - PO 2 mg DAILY [facility] Administration Cholecalciferol 2,000 unit 10/25/16 10:00 10/30/16 09:08 Vitamin D3 - PO 2,000 unit DAILY [facility] Administration Dexamethasone 40 mg 10/28/16 18:15 10/30/16 09:09 Decadron - PO 40 mg DAILY [facility] Administration Diltiazem HCl 30 mg 10/30/16 22:00 Cardizem - PO HS [facility] Diltiazem HCl 60 mg 10/30/16 14:25 10/30/16 15:44 Cardizem - PO 60 mg BID@0600,1400 [facility] Administration Guaifenesin/Codeine Phosphate 5 ml 10/29/16 11:38 10/30/16 11:39 Robitussin Ac - PO 5 ml TID PRN Administration COUGH Ipratropium [place] 1 amp 10/25/16 00:00 10/30/16 19:09 Atrovent 0.02% Nebulizer - NEB 1 amp QIDR [facility] Administration Metformin HCl 500 mg 10/25/16 07:00 10/30/16 06:08 Glucophage Xr - PO 500 mg DAILY@0700 [facility] Administration Metoprolol Tartrate 25 mg 10/25/16 10:00 10/30/16 09:08 Lopressor - PO 25 mg DAILY [facility] Administration Montelukast Sodium 10 mg 10/24/16 22:00 10/29/16 21:43 Singulair - PO 10 mg HS [facility] Administration Oxycodone HCl 2.5 mg 10/24/16 19:25 10/30/16 09:06 Roxicodone - PO 2.5 mg Q4H PRN Administration PAIN Potassium Chloride 20 meq 10/25/16 10:00 10/30/16 09:07 K-Dur - PO 20 meq DAILY [facility] Administration Pregabalin 50 mg 10/24/16 22:00 10/30/16 09:08 Lyrica - PO 50 mg BID [facility] Administration Propylthiouracil 50 mg 10/25/16 10:00 10/30/16 09:09 Ptu - PO 50 mg DAILY [facility] Administration Ranitidine HCl 150 mg 10/24/16 22:00 10/30/16 09:07 Zantac - PO 150 mg BID [facility] Administration Warfarin Sodium 2.5 mg 10/30/16 18:00 10/30/16 17:21 Coumadin - PO 2.5 mg DAILY@1800 [facility] Administration INR, PTT INR 2.82 (0.82-1.09) H D 10/30/16 07:35 Assessment/Plan: IgG [place] Multiple Myeloma Anemia Afib on coumadin 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 -started on Dex 40mg (D3 today). -supportive care. -INR monitoring for afib -PT eval Problem List - Problems (1) Anemia Code(s): D64.9 - ANEMIA, UNSPECIFIED Qualifiers: Anemia type: unspecified type Qualified Code(s): D64.9 - Anemia, unspecified (2) Multiple myeloma Code(s): C90.00 - MULTIPLE MYELOMA NOT HAVING ACHIEVED REMISSION Qualifiers: Multiple myeloma remission status: not in remission Qualified Code(s ): C90.00 - Multiple myeloma not having achieved remission (3) Atrial fibrillation Code(s): I48.91 - UNSPECIFIED ATRIAL FIBRILLATION Qualifiers: Atrial fibrillation type: chronic Qualified Code(s): I48.2 - Chronic atrial fibrillation
[2016-10-30] MEDS: MONTELUKAST NA 10 MG TABLET PO SCH (22:59)
[2016-10-30] MEDS: ATORVASTATIN CA 20 MG TABLET (FP) PO SCH (22:59)
[2016-10-31] MEDS ORDERED: PT OWN MED DRAWER 7, Y5N ONE ×3 (05:26→10:17)
[2016-10-31] MEDS: dilTIAZem HCL 30 MG TABLET (FP) PO SCH ×3 (06:01→22:58)
[2016-10-31] MEDS: IPRATROPIUM BR 0.02% 0.5 MG/2.5 ML VIAL.NEB. NEB SCH ×4 (06:46→23:46)
[2016-10-31] MEDS: ALBUTEROL SO4 0.083% IH SOL 2.5 MG/3 ML VIAL.NEB. NEB SCH ×4 (06:49→23:46)
[2016-10-31 07:37] LABS: BASOPHIL 0.1 % (0-2.0); MCH 28.8 pg (25.7-33.7); MEAN CELL VOLUME 90.1 fl (80-96); MEAN PLT VOLUME 8.9 fl (7.5-11.1); NEUTROPHILS 91.5 % (42.8-82.8); PLATELET COUNT 208 K/MM3 (134-434); RDW 16.3 % (11.6-15.6); WHITE BLOOD COUNT 9.4 K/mm3 (4.0-10.0)
[2016-10-31 07:45] LABS: INR 3.8 (0.82-1.09); PROTHROMBIN TIME (PATIENT) 42.9 SEC (9.98-11.88)
[2016-10-31 08:27] LABS: ANION GAP 8 (8-16); CO2 26 mmol/L (21-32); CREATININE 1.3 mg/dL (0.55-1.02); GLUCOSE,RANDOM 134 mg/dL (74-106); MAGNESIUM 2.1 mg/dL (1.8-2.4); PHOSPHOROUS 2.4 mg/dL (2.5-4.9)
[2016-10-31] MEDS ORDERED: BUMETANIDE 1 MG TABLET PO SCH (10:00)
[2016-10-31] MEDS: oxyCODONE HCL 5 MG TABLET PO PRN ×2 (10:22→22:58)
[2016-10-31] MEDS: RANITIDINE HCL 150 MG TABLET (FP) PO SCH ×2 (10:24→22:58)
[2016-10-31] MEDS: METOPROLOL TARTRATE 25 MG TABLET (FP) PO SCH (10:25)
[2016-10-31] MEDS: POTASSIUM CHLORIDE TABS 20 MEQ TABLET.ER (FP) PO SCH (10:25)
[2016-10-31] MEDS: PREGABALIN 50 MG CAPSULE PO SCH ×2 (10:25→22:58)
[2016-10-31] MEDS: CHOLECALCIFEROL (VITAMIN D3) 1,000 UNIT TABLET (FP) PO SCH (10:25)
[2016-10-31] MEDS: BUMETANIDE 1 MG TABLET PO SCH (10:27)
[2016-10-31] MEDS: PROPYLTHIOURACIL 50 MG TABLET (UD) PO SCH (10:27)
--- NOTE | 2016-10-31 13:14 | PN ---
Progress Note, Physician Chief Complaint: Ms Sanchez says her leg pain is controlled and her cough is better. Is up eating without difficulty. No cp, sob, n/v. - Current Medication List Current Medications: Active Medications Albuterol Sulfate (Ventolin 0.083% Nebulizer Soln -) 1 amp NEB QIDR [facility] Last Admin: 10/31/16 11:10 Dose: 1 amp Atorvastatin Calcium (Lipitor -) 20 mg PO HS [facility] Last Admin: 10/30/16 22:59 Dose: 20 mg Bumetanide (Bumex -) 2 mg PO DAILY [facility] Last Admin: 10/31/16 10:27 Dose: 2 mg Cholecalciferol (Vitamin D3 -) 2,000 unit PO DAILY [facility] Last Admin: 10/31/16 10:25 Dose: 2,000 unit Dexamethasone (Decadron -) 40 mg PO DAILY [facility] Last Admin: 10/30/16 09:09 Dose: 40 mg Diltiazem HCl (Cardizem -) 30 mg PO HS [facility] Last Admin: 10/30/16 22:59 Dose: 30 mg Diltiazem HCl (Cardizem -) 60 mg PO BID@0600,1400 [facility] Last Admin: 10/31/16 06:01 Dose: 60 mg Guaifenesin/Codeine Phosphate (Robitussin Ac -) 5 ml PO TID PRN PRN Reason: COUGH Last Admin: 10/30/16 11:39 Dose: 5 ml Ipratropium [place] (Atrovent 0.02% Nebulizer -) 1 amp NEB QIDR [facility] Last Admin: 10/31/16 11:08 Dose: 1 amp Metformin HCl (Glucophage Xr -) 500 mg PO DAILY@0700 [facility] Last Admin: 10/31/16 06:01 Dose: 500 mg Metoprolol Tartrate (Lopressor -) 25 mg PO DAILY [facility] Last Admin: 10/31/16 10:25 Dose: 25 mg Montelukast Sodium (Singulair -) 10 mg PO [facility] Last Admin: 10/30/16 22:59 Dose: 10 mg Oxycodone HCl (Roxicodone -) 2.5 mg PO Q4H PRN PRN Reason: PAIN Last Admin: 10/31/16 10:22 Dose: 2.5 mg Potassium Chloride (K-Dur -) 20 meq PO DAILY [facility] Last Admin: 10/31/16 10:25 Dose: 20 meq Pregabalin (Lyrica -) 50 mg PO BID [facility] Last Admin: 10/31/16 10:25 Dose: 50 mg Propylthiouracil (Ptu -) 50 mg PO DAILY [facility] Last Admin: 10/31/16 10:27 Dose: 50 mg Ranitidine HCl (Zantac -) 150 mg PO BID [facility] Last Admin: 10/31/16 10:24 Dose: 150 mg Warfarin Sodium (Coumadin -) 2.5 mg PO DAILY@1800 [facility] Last Admin: 10/30/16 17:21 Dose: 2.5 mg - Objective Vital Signs: Vital Signs Temperature 36.8 C 10/30/16 19:00 Pulse Rate 94 H 10/31/16 11:08 Respiratory Rate 24 10/31/16 10:12 Blood Pressure 117/64 10/31/16 10:12 O2 Sat by Pulse Oximetry (%) 96 10/31/16 11:08 Constitutional: Yes: Well Nourished, No Distress, Calm Cardiovascular: Yes: Pulse Irregular. No: Tachycardia, Gallop, Murmur, Rub Respiratory: Yes: Regular, CTA Bilaterally. No: Rales, Rhonchi, Wheezes Gastrointestinal: Yes: Normal Bowel Sounds, Soft. No: Distention, Tenderness Extremities: Yes: WNL Edema: No Labs: CBC, BMP 10/31/16 06:10 10/31/16 06:10 INR, PTT INR 3.80 (0.82-1.09) H D 10/31/16 06:10 Problem List - Problems (1) Anemia Code(s): D64.9 - ANEMIA, UNSPECIFIED Qualifiers: Anemia type: unspecified type Qualified Code(s): D64.9 - Anemia, unspecified (2) Weakness Code(s): R53.1 - WEAKNESS (3) Atrial fibrillation Code(s): I48.91 - UNSPECIFIED ATRIAL FIBRILLATION Qualifiers: Atrial fibrillation type: chronic Qualified Code(s): I48.2 - Chronic atrial fibrillation (4) Congestive heart failure Code(s): I50.9 - HEART FAILURE, UNSPECIFIED Qualifiers: Congestive heart failure type: diastolic Congestive heart failure chronicity: chronic Qualified Code(s): I50.32 - Chronic diastolic ( congestive) heart failure (5) Diabetes mellitus Code(s): E11.9 - TYPE 2 DIABETES MELLITUS WITHOUT COMPLICATIONS (6) Multiple myeloma Code(s): C90.00 - MULTIPLE MYELOMA NOT HAVING ACHIEVED REMISSION Qualifiers: Multiple myeloma remission status: not in remission Qualified Code(s ): C90.00 - Multiple myeloma not having achieved remission Assessment/Plan (1) Anemia Assessment/Plan: -secondary to multiple myeloma -s/p transfusion -stable -hematology following Code(s): D64.9 - ANEMIA, UNSPECIFIED (2) Weakness Assessment/Plan: -PT consulted and following Code(s): R53.1 - WEAKNESS (3) Atrial fibrillation Assessment/Plan: -cardiology following -rate controlled -hold coumadin secondary to supratherapeutic INR Code(s): I48.91 - UNSPECIFIED ATRIAL FIBRILLATION Qualifiers: Atrial fibrillation type: chronic Qualified Code(s): I48.2 - Chronic atrial fibrillation (4) Congestive heart failure Assessment/Plan: -controlled -continue bumex Code(s): I50.9 - HEART FAILURE, UNSPECIFIED Qualifiers: Congestive heart failure type: diastolic Congestive heart failure chronicity: chronic Qualified Code(s): I50.32 - Chronic diastolic ( congestive) heart failure (5) Diabetes mellitus Assessment/Plan: -continue metformin Code(s): E11.9 - TYPE 2 DIABETES MELLITUS WITHOUT COMPLICATIONS (6) Multiple myeloma Assessment/Plan: -decadron per hematology Code(s): C90.00 - MULTIPLE MYELOMA NOT HAVING ACHIEVED REMISSION Qualifiers: Multiple myeloma remission status: not in remission Qualified Code(s ): C90.00 - Multiple myeloma not having achieved remission (7) Cough -continue robitussin AC prn (8) Dysphagia -speech therapy consulted and case discussed -does not appear to be aspirating at this time Dispo -plan for discharge on Thursday -plan d/w son and patient
[2016-10-31] MEDS: DEXAMETHASONE 4 MG TABLET (FP) PO SCH ×2 (14:30→14:45)
--- NOTE | 2016-10-31 15:04 | PN ---
Progress Note (short form) - Note Progress Note: Patient seen and examined. Feeling better.son at bedside. In nad CTA b/l Cor: RRR Abdomen: soft LE: no edema Last Vital Signs Temp Pulse Resp BP Pulse Ox 98.2 F 94 H 24 117/64 96 10/30/16 19:00 10/31/16 11:08 10/31/16 10:12 10/31/16 10:12 10/31/16 11:08 CBC, BMP 10/31/16 06:10 10/31/16 06:10 Current Medications Generic Name Dose Route Start Last Admin Trade Name Freq PRN Reason Stop Dose Admin Albuterol Sulfate 1 amp 10/25/16 00:00 10/31/16 11:10 Ventolin 0.083% Nebulizer Soln - NEB 1 amp QIDR [facility] Administration Atorvastatin Calcium 20 mg 10/24/16 22:00 10/30/16 22:59 Lipitor - PO 20 mg HS [facility] Administration Bumetanide 2 mg 10/30/16 10:00 10/31/16 10:27 Bumex - PO 2 mg DAILY [facility] Administration Cholecalciferol 2,000 unit 10/25/16 10:00 10/31/16 10:25 Vitamin D3 - PO 2,000 unit DAILY [facility] Administration Diltiazem HCl 30 mg 10/30/16 22:00 10/30/16 22:59 Cardizem - PO 30 mg HS [facility] Administration Diltiazem HCl 60 mg 10/30/16 14:25 10/31/16 06:01 Cardizem - PO 60 mg BID@0600,1400 [facility] Administration Guaifenesin/Codeine Phosphate 5 ml 10/29/16 11:38 10/30/16 11:39 Robitussin Ac - PO 5 ml TID PRN Administration COUGH Ipratropium [place] 1 amp 10/25/16 00:00 10/31/16 11:08 Atrovent 0.02% Nebulizer - NEB 1 amp QIDR [facility] Administration Metformin HCl 500 mg 10/25/16 07:00 10/31/16 06:01 Glucophage Xr - PO 500 mg DAILY@0700 [facility] Administration Metoprolol Tartrate 25 mg 10/25/16 10:00 10/31/16 10:25 Lopressor - PO 25 mg DAILY [facility] Administration Montelukast Sodium 10 mg 10/24/16 22:00 10/30/16 22:59 Singulair - PO 10 mg HS [facility] Administration Oxycodone HCl 2.5 mg 10/24/16 19:25 10/31/16 10:22 Roxicodone - PO 2.5 mg Q4H PRN Administration PAIN Potassium Chloride 20 meq 10/25/16 10:00 10/31/16 10:25 K-Dur - PO 20 meq DAILY [facility] Administration Pregabalin 50 mg 10/24/16 22:00 10/31/16 10:25 Lyrica - PO 50 mg BID [facility] Administration Propylthiouracil 50 mg 10/25/16 10:00 10/31/16 10:27 Ptu - PO 50 mg DAILY [facility] Administration Ranitidine HCl 150 mg 10/24/16 22:00 10/31/16 10:24 Zantac - PO 150 mg BID [facility] Administration Warfarin Sodium 2.5 mg 10/30/16 18:00 10/30/16 17:21 Coumadin - PO 2.5 mg DAILY@1800 [facility] Administration Assessment/Plan: IgG [place] Multiple Myeloma Anemia Afib on coumadin 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 -viscosity re-sent. -started on Dex 40mg (D4 today). stopped -supportive care. -BUN/Cr may decrease once steroids stopped. Will give IVF one litre. -INR monitoring for afib -PT eval possible dc Again, office info given to the son , he mentioned he would give us a call with any change of plans or decision on chemotherapy. Problem List - Problems (1) Anemia Code(s): D64.9 - ANEMIA, UNSPECIFIED Qualifiers: Anemia type: unspecified type Qualified Code(s): D64.9 - Anemia, unspecified (2) Multiple myeloma Code(s): C90.00 - MULTIPLE MYELOMA NOT HAVING ACHIEVED REMISSION Qualifiers: Multiple myeloma remission status: not in remission Qualified Code(s ): C90.00 - Multiple myeloma not having achieved remission (3) Atrial fibrillation Code(s): I48.91 - UNSPECIFIED ATRIAL FIBRILLATION Qualifiers: Atrial fibrillation type: chronic Qualified Code(s): I48.2 - Chronic atrial fibrillation
--- NOTE | 2016-10-31 17:05 | PN ---
Progress Note (short form) - Note Progress Note: CC: afib Current Medications Albuterol Sulfate (Ventolin 0.083% Nebulizer Soln -) 1 amp NEB QIDR [facility] Last Admin: 10/31/16 11:10 Dose: 1 amp Atorvastatin Calcium (Lipitor -) 20 mg PO HS [facility] Last Admin: 10/30/16 22:59 Dose: 20 mg Bumetanide (Bumex -) 2 mg PO DAILY [facility] Last Admin: 10/31/16 10:27 Dose: 2 mg Cholecalciferol (Vitamin D3 -) 2,000 unit PO DAILY [facility] Last Admin: 10/31/16 10:25 Dose: 2,000 unit Diltiazem HCl (Cardizem -) 30 mg PO HS [facility] Last Admin: 10/30/16 22:59 Dose: 30 mg Diltiazem HCl (Cardizem -) 60 mg PO BID@0600,1400 [facility] Last Admin: 10/31/16 14:56 Dose: 60 mg Guaifenesin/Codeine Phosphate (Robitussin Ac -) 5 ml PO TID PRN PRN Reason: COUGH Last Admin: 10/30/16 11:39 Dose: 5 ml Sodium Chloride (Normal Saline -) 1,000 mls @ 83 mls/hr IV ASDIR [facility] Ipratropium [place] (Atrovent 0.02% Nebulizer -) 1 amp NEB QIDR [facility] Last Admin: 10/31/16 11:08 Dose: 1 amp Metformin HCl (Glucophage Xr -) 500 mg PO DAILY@0700 [facility] Last Admin: 10/31/16 06:01 Dose: 500 mg Metoprolol Tartrate (Lopressor -) 25 mg PO DAILY [facility] Last Admin: 10/31/16 10:25 Dose: 25 mg Montelukast Sodium (Singulair -) 10 mg PO HS [facility] Last Admin: 10/30/16 22:59 Dose: 10 mg Oxycodone HCl (Roxicodone -) 2.5 mg PO Q4H PRN PRN Reason: PAIN Last Admin: 10/31/16 10:22 Dose: 2.5 mg Potassium Chloride (K-Dur -) 20 meq PO DAILY [facility] Last Admin: 10/31/16 10:25 Dose: 20 meq Pregabalin (Lyrica -) 50 mg PO BID [facility] Last Admin: 10/31/16 10:25 Dose: 50 mg Propylthiouracil (Ptu -) 50 mg PO DAILY [facility] Last Admin: 10/31/16 10:27 Dose: 50 mg Ranitidine HCl (Zantac -) 150 mg PO BID [facility] Last Admin: 10/31/16 10:24 Dose: 150 mg Warfarin Sodium (Coumadin -) 2.5 mg PO DAILY@1800 [facility] Last Admin: 10/30/16 17:21 Dose: 2.5 mg Vital Signs - 24 hr 10/30/16 10/30/16 10/30/16 19:00 21:00 23:02 Temperature 98.2 F Pulse Rate 107 H 111 H Respiratory 18 20 Rate Blood Pressure 137/69 120/85 O2 Sat by Pulse 95 Oximetry (%) 10/31/16 10/31/16 10/31/16 06:06 10:12 11:08 Temperature Pulse Rate 98 H 102 H 94 H Respiratory 18 24 Rate Blood Pressure 133/84 117/64 O2 Sat by Pulse 96 Oximetry (%) 10/31/16 10/31/16 14:53 15:38 Temperature 97.3 F L Pulse Rate 105 H 110 H Respiratory 28 H 22 Rate Blood Pressure 131/86 124/87 O2 Sat by Pulse Oximetry (%) Intake & Output 10/29/16 10/30/16 10/31/16 11/01/16 07:59 07:59 07:59 07:59 Intake Total [phone] Balance 550 284 365 3872 Weight 127 lb 14.4 oz 132 lb NAD, calm JVD flat, neck supple irregularly irregular, nl rate nl s1, s2 2/6 murmur at sternal border and apex dullness at left base, nl eff + bs soft nt nd ext without edema no cyanosis or clubbing + dp/pt no jaundice, diaphoresis CBC, BMP 10/31/16 06:10 10/31/16 06:10 EKG: afib, vr 93 bpm. anterior q waves. no ischemic changes. CXR: diaphragmatic hernia obscuring lung torrez Echo 06/2015: afib, nl LV/RV, mild-mod MR/TR, hi LAP, mild ao root dil MIBI 2012: no ST changes, probable breast artifact vs. AW ischemia. Nl EF PFTs 2013: no obstr, mild restr, mild decr DLCO 86 yo with h/o afib, diastolic CHF, htn, hl, h/o rheumatic fever, mild-moderate MR, Dm, meningioma, new diagnosis of multiple myeloma, subclinical hyperthyroidism on PTU who presents with anemia Afib - well controlled at "lenient rate control" targest on home regimen: DILTIAZEM (60 AM, 60 LUNCH, 30 PM) AND LOW DOSE TOPROL (25). (has h/o bradycardia and hypotension of ? etiology--stable long time on reduced med regimen). currently on diltiazem bid, will resume outpatient diltiazem tid dosing. . - cont coumadin (goal INR 2-3), hematology following. sob, diastolic CHF, copd - multifactorial chronic sob (copd, diast chf, and ? related to very large hiatal hernia). Likely exacerbated here by anemia. - large hiatal hernia obscures most of L lung on cxr. - s/p diuresis with lasix 40 mg iv daily. appears euvolemic on exam. agree with transitioning to home regimen. per patient's son, most recently has been on bumex 2 mg daily mild-mod MR - functional, likely related to volume status - echo 06/2015 stable anemia/multiple myeloma - 2/2 multiple myeloma. s/p transfusion, heme following - monitor on coumadin Emphysema H/O WHEEZING IN PAST--STABLE OF LATE
[2016-10-31] MEDS: SODIUM CHLORIDE 1,000 ML IV SCH (19:01)
[2016-10-31] MEDS: MONTELUKAST NA 10 MG TABLET PO SCH (22:58)
[2016-10-31] MEDS: guaiFENesin/CODEINE 5 ML UNIT-DOSE CUPS PO PRN (22:58)
[2016-10-31] MEDS: ATORVASTATIN CA 20 MG TABLET (FP) PO SCH (22:58)
[2016-11-01] MEDS ORDERED: PT OWN MED DRAWER 7, Y5N ONE ×2 (06:19→10:18)
[2016-11-01] MEDS: dilTIAZem HCL 30 MG TABLET (FP) PO SCH ×3 (06:26→21:24)
[2016-11-01] MEDS: SODIUM CHLORIDE 1,000 ML IV SCH (06:26)
[2016-11-01] MEDS: IPRATROPIUM BR 0.02% 0.5 MG/2.5 ML VIAL.NEB. NEB SCH ×3 (06:35→18:18)
[2016-11-01] MEDS: ALBUTEROL SO4 0.083% IH SOL 2.5 MG/3 ML VIAL.NEB. NEB SCH ×3 (06:35→18:19)
[2016-11-01 08:26] LABS: MCH 29.3 pg (25.7-33.7); MCHC 32.5 g/dl (32.0-36.0); MEAN CELL VOLUME 90.3 fl (80-96); MEAN PLT VOLUME 8.7 fl (7.5-11.1); NEUTROPHILS 89.5 % (42.8-82.8); PLATELET COUNT 192 K/MM3 (134-434); RDW 16.3 % (11.6-15.6)
[2016-11-01 08:51] LABS: INR 3.54 (0.82-1.09)
[2016-11-01 08:57] LABS: ANION GAP 6 (8-16); CALCIUM 8.3 mg/dL (8.5-10.1); CO2 29 mmol/L (21-32); CREATININE 1.1 mg/dL (0.55-1.02); GLUCOSE,RANDOM 146 mg/dL (74-106); MAGNESIUM 1.9 mg/dL (1.8-2.4); PHOSPHOROUS 1.5 mg/dL (2.5-4.9)
--- NOTE | 2016-11-01 09:59 | PN ---
Progress Note (short form) - Note Progress Note: Patient seen and examined. Chart reviewed. Currently sitting up in bed alert and appropriate with chronic non-productive cough. Back discomfort noted. Medications, lab studies and progress notes reviewed. Selected Entries 11/01/16 11/01/16 06:00 09:39 Temperature 97.1 F L Pulse Rate 109 H Respiratory 20 Rate Blood Pressure 131/82 Weight 130 lb 9 oz Laboratory Tests 11/01/16 11/01/16 11/01/16 07:30 07:30 07:30 WBC 5.0 D Hgb 9.4 L Hct 28.8 L Plt Count 192 INR 3.54 H Sodium 138 Potassium 3.7 Chloride 103 Carbon Dioxide 29 BUN 41 H D Creatinine 1.1 H Random Glucose 146 H Calcium 8.3 L Phosphorus 1.5 L D Magnesium 1.9 Chest Decreased breath sounds at the bases. No wheezing No rhonchi Cor Irregular 2/6 sys murmur LSB Abd Soft No mass or tenderness Ext No edema No phlebitis Neuro New new focal deficit Assessment and Plan Anemia 9.4/28.8 Multifactorial including MM Multiple Myeloma As per hematology team AFib As per cardioogy On warfarin Diastolic CHF Stable on Rx CRI BUN/Cr 53/1.3>>41/1.1 HTN STable HPL Stable DM Stable Hyperthyroidism On PTU H/O Rheumatic Fever Meningioma Quiescent COPD On O2 Chronic cough Dysphagia Meagan Rae note reviewed Hypophosphatemia Monitor Continue current Rx Possible discharge in 48 hours MR Mild to moderate
[2016-11-01] MEDS: PROPYLTHIOURACIL 50 MG TABLET (UD) PO SCH (10:25)
[2016-11-01] MEDS: POTASSIUM CHLORIDE TABS 20 MEQ TABLET.ER (FP) PO SCH (10:25)
[2016-11-01] MEDS: CHOLECALCIFEROL (VITAMIN D3) 1,000 UNIT TABLET (FP) PO SCH (10:25)
[2016-11-01] MEDS: PREGABALIN 50 MG CAPSULE PO SCH ×2 (10:25→21:24)
[2016-11-01] MEDS: BUMETANIDE 1 MG TABLET PO SCH (10:25)
[2016-11-01] MEDS: METOPROLOL TARTRATE 25 MG TABLET (FP) PO SCH (10:25)
[2016-11-01] MEDS: RANITIDINE HCL 150 MG TABLET (FP) PO SCH ×2 (10:25→21:24)
[2016-11-01] MEDS: oxyCODONE HCL 5 MG TABLET PO PRN (11:26)
[2016-11-01] MEDS: LORazepam 0.5 MG TABLET PO SCH ×2 (13:43→21:25)
[2016-11-01] MEDS: ACETAMINOPHEN 325 MG TABLET (FP) PO SCH ×2 (13:45→22:30)
[2016-11-01] MEDS: WARFARIN NA 2.5 MG TABLET (FP) PO SCH (17:41)
[2016-11-01] MEDS: ATORVASTATIN CA 20 MG TABLET (FP) PO SCH (21:24)
[2016-11-01] MEDS: MONTELUKAST NA 10 MG TABLET PO SCH (21:24)
--- NOTE | 2016-11-01 22:05 | PN ---
Progress Note (short form) - Note Progress Note: CC: afib S: no sob, palps, dizziness, cp. + low back pain. IVF started yesterday. brief low saturation today 92%, but may have been agitated at the time. repeat at bedside now 98%. Current Medications Acetaminophen (Tylenol -) 650 mg PO BID [facility] Last Admin: 11/01/16 13:45 Dose: 650 mg Albuterol Sulfate (Ventolin 0.083% Nebulizer Soln -) 1 amp NEB QIDR [facility] Last Admin: 11/01/16 18:19 Dose: 1 amp Atorvastatin Calcium (Lipitor -) [address] [facility] Last Admin: 11/01/16 21:24 Dose: 20 mg Cholecalciferol (Vitamin D3 -) 2,000 unit PO DAILY [facility] Last Admin: 11/01/16 10:25 Dose: 2,000 unit Diltiazem HCl (Cardizem -) [address] [facility] Last Admin: 11/01/16 21:24 Dose: 30 mg Diltiazem HCl (Cardizem -) 60 mg PO BID@0600,1400 [facility] Last Admin: 11/01/16 14:54 Dose: 60 mg Guaifenesin/Codeine Phosphate (Robitussin Ac -) 5 ml PO TID PRN PRN Reason: COUGH Last Admin: 10/31/16 22:58 Dose: 5 ml Ipratropium [place] (Atrovent 0.02% Nebulizer -) 1 amp NEB QIDR [facility] Last Admin: 11/01/16 18:18 Dose: 1 amp Lorazepam (Ativan -) 0.25 mg PO BID [facility] Last Admin: 11/01/16 21:25 Dose: 0.25 mg Metformin HCl (Glucophage Xr -) 500 mg PO DAILY@0700 [facility] Last Admin: 11/01/16 06:26 Dose: 500 mg Metoprolol Tartrate (Lopressor -) 25 mg PO DAILY [facility] Last Admin: 11/01/16 10:25 Dose: 25 mg Montelukast Sodium (Singulair -) 10 mg PO HS [facility] Last Admin: 11/01/16 21:24 Dose: 10 mg Oxycodone HCl (Roxicodone -) 2.5 mg PO Q4H PRN PRN Reason: PAIN Last Admin: 11/01/16 11:26 Dose: 2.5 mg Potassium Chloride (K-Dur -) 20 meq PO DAILY [facility] Last Admin: 11/01/16 10:25 Dose: 20 meq Pregabalin (Lyrica -) 50 mg PO BID [facility] Last Admin: 11/01/16 21:24 Dose: 50 mg Propylthiouracil (Ptu -) 50 mg PO DAILY [facility] Last Admin: 11/01/16 10:25 Dose: 50 mg Ranitidine HCl (Zantac -) 150 mg PO BID [facility] Last Admin: 11/01/16 21:24 Dose: 150 mg Warfarin Sodium (Coumadin -) 2.5 mg PO DAILY@1800 [facility] Last Admin: 11/01/16 17:41 Dose: Not Given Vital Signs - 24 hr 10/31/16 11/01/16 11/01/16 23:05 06:00 09:00 Temperature 97.5 F L 97.1 F L Pulse Rate 101 H 106 H Respiratory 20 20 0 L Rate Blood Pressure 125/59 137/93 O2 Sat by Pulse 98 Oximetry (%) 11/01/16 11/01/16 11/01/16 09:39 11:22 14:50 Temperature 98.2 F Pulse Rate 109 H 104 H 113 H Respiratory 20 21 Rate Blood Pressure 131/82 126/66 O2 Sat by Pulse 92 L Oximetry (%) 11/01/16 11/01/16 19:08 20:00 Temperature 98.2 F 97.5 F L Pulse Rate 89 106 H Respiratory 18 20 Rate Blood Pressure 124/80 118/78 O2 Sat by Pulse Oximetry (%) Intake & Output 10/30/16 10/31/16 11/01/16 11/02/16 07:59 07:59 07:59 07:59 Intake Total 027 269 9453 1446 Balance 296 872 4117 1446 Weight 127 lb 14.4 oz 130 lb 9 oz NAD, calm JVD flat, neck supple irregularly irregular, nl rate nl s1, s2 2/6 murmur at sternal border and apex dullness at left base, nl eff + bs soft nt nd ext without edema no cyanosis or clubbing + dp/pt no jaundice, diaphoresis CBC, BMP 11/01/16 07:30 11/01/16 07:30 EKG: afib, vr 93 bpm. anterior q waves. no ischemic changes. CXR: diaphragmatic hernia obscuring lung torrez Echo 06/2015: afib, nl LV/RV, mild-mod MR/TR, hi LAP, mild ao root dil MIBI 2012: no ST changes, probable breast artifact vs. AW ischemia. Nl EF PFTs 2013: no obstr, mild restr, mild decr DLCO 86 yo with h/o afib, diastolic CHF, htn, hl, h/o rheumatic fever, mild-moderate MR, Dm, meningioma, new diagnosis of multiple myeloma, subclinical hyperthyroidism on PTU who presents with anemia Afib - well controlled at "lenient rate control" targest on home regimen: DILTIAZEM (60 AM, 60 LUNCH, 30 PM) AND LOW DOSE TOPROL (25). (has h/o bradycardia and hypotension of ? etiology--stable long time on reduced med regimen). currently on diltiazem bid, will resume outpatient diltiazem tid dosing. . - cont coumadin (goal INR 2-3), hematology following. sob, diastolic CHF, copd - multifactorial chronic sob (copd, diast chf, and ? related to very large hiatal hernia). Likely exacerbated here by anemia. - large hiatal hernia obscures most of L lung on cxr. - s/p diuresis with lasix 40 mg iv daily. Transitioned to outpatient bumex. Per patient's son, most recently has been on bumex 2 mg daily, however, office records show dose was 0.5 mg M,W,F. --> Cr bumped to 1.3. improved s/p IVF yesterday. Will stop IVF now that Cr has improved. Hold bumex. Daily weights. mild-mod MR - functional, likely related to volume status - echo 06/2015 stable anemia/multiple myeloma - 2/2 multiple myeloma. s/p transfusion, heme following - monitor on coumadin Emphysema H/O WHEEZING IN PAST--STABLE OF LATE
[2016-11-02] MEDS: IPRATROPIUM BR 0.02% 0.5 MG/2.5 ML VIAL.NEB. NEB SCH ×5 (00:28→23:10)
[2016-11-02] MEDS: ALBUTEROL SO4 0.083% IH SOL 2.5 MG/3 ML VIAL.NEB. NEB SCH ×5 (00:28→23:10)
[2016-11-02] MEDS: dilTIAZem HCL 30 MG TABLET (FP) PO SCH ×3 (06:00→22:34)
[2016-11-02 07:46] LABS: BASOPHIL 0.1 % (0-2.0); MCH 29.1 pg (25.7-33.7); MCHC 32.6 g/dl (32.0-36.0); MEAN CELL VOLUME 89.4 fl (80-96); MEAN PLT VOLUME 8.3 fl (7.5-11.1); NEUTROPHILS 80.7 % (42.8-82.8); PLATELET COUNT 205 K/MM3 (134-434); RDW 16.2 % (11.6-15.6); WHITE BLOOD COUNT 4.7 K/mm3 (4.0-10.0)
[2016-11-02 08:05] LABS: INR 2.71 (0.82-1.09); PROTHROMBIN TIME (PATIENT) 30.4 SEC (9.98-11.88)
[2016-11-02 08:22] LABS: ALBUMIN 2.6 g/dl (3.4-5.0); ALK PHOS 55 U/L (45-117); ANION GAP 5 (8-16); BILIRUBIN,TOTAL 0.6 mg/dL (0.2-1.0); CALCIUM 8.1 mg/dL (8.5-10.1); CO2 29 mmol/L (21-32); CREATININE 0.9 mg/dL (0.55-1.02); GLUCOSE,RANDOM 126 mg/dL (74-106); MAGNESIUM 1.9 mg/dL (1.8-2.4); PHOSPHOROUS 1.3 mg/dL (2.5-4.9); SGOT/AST 19 U/L (15-37); SGPT/ALT 26 U/L (12-78); TOT PROT 9.8 g/dl (6.4-8.2)
--- NOTE | 2016-11-02 09:26 | PN ---
Progress Note (short form) - Note Progress Note: Patient seen and examined. Chart reviewed. Currently sitting up in bed, alert and appropriate with chronic non-productive cough. Right lower back area discomfort noted again. Medications, lab studies and progress notes reviewed. Selected Entries 11/02/16 11/02/16 11/02/16 06:00 07:30 08:40 Temperature 97.7 F Pulse Rate 100 H Respiratory 20 Rate Blood Pressure 119/74 Weight 131 lb 1.6 oz Laboratory Tests 11/02/16 11/02/16 11/02/16 06:00 06:00 06:00 WBC 4.7 Hgb 9.3 L Hct 28.4 L Plt Count 205 INR 2.71 H Sodium 139 Potassium 3.4 L BUN 30 H D Creatinine 0.9 Random Glucose 126 H Calcium 8.1 L Phosphorus 1.3 L Magnesium 1.9 Total Bilirubin 0.6 AST 19 ALT 26 D Alkaline Phosphatase 55 Total Protein 9.8 H Albumin 2.6 L Chest Decreased breath sounds at the bases. No wheezing No rhonchi Cor Irregular 2/6 sys murmur LSB Abd Soft No mass or tenderness Ext No edema No phlebitis Neuro New new focal deficit Assessment and Plan Anemia 9.4/28.8>>9.3/28.4 Multifactorial including MM Multiple Myeloma As per hematology team Calculated globulins 7.2 AFib As per cardioogy On warfarin Diastolic CHF Stable on Rx CRI BUN/Cr 53/1.3>>41/1.1 HTN STable HPL Stable DM Stable Hyperthyroidism On PTU H/O Rheumatic Fever Meningioma Quiescent COPD On O2 Chronic cough Dysphagia Meagan Kyra note reviewed Hypophosphatemia Monitor On Warfarin Follow INR MR Mild to moderate Continue current Rx Possible discharge in AM
[2016-11-02] MEDS ORDERED: LORazepam 0.5 MG TABLET PO PRN (09:38)
[2016-11-02] MEDS: PREGABALIN 50 MG CAPSULE PO SCH ×2 (10:06→22:33)
[2016-11-02] MEDS: CHOLECALCIFEROL (VITAMIN D3) 1,000 UNIT TABLET (FP) PO SCH (10:06)
[2016-11-02] MEDS: ACETAMINOPHEN 325 MG TABLET (FP) PO SCH ×2 (10:06→23:17)
[2016-11-02] MEDS: RANITIDINE HCL 150 MG TABLET (FP) PO SCH ×2 (10:06→22:34)
[2016-11-02] MEDS: METOPROLOL TARTRATE 25 MG TABLET (FP) PO SCH (10:06)
[2016-11-02] MEDS: PROPYLTHIOURACIL 50 MG TABLET (UD) PO SCH (10:06)
[2016-11-02] MEDS: POTASSIUM CHLORIDE TABS 20 MEQ TABLET.ER (FP) PO SCH ×2 (10:06→22:33)
--- NOTE | 2016-11-02 15:01 | PN ---
Progress Note (short form) - Note Progress Note: Patient seen and examined. Hematology Progress Note: Feeling "pretty good" she says. Lying flat in the bed, does have pain in the back when asked. In nad CTA b/l Cor: RRR Abdomen: soft LE: no edema Last Vital Signs Temp Pulse Resp BP Pulse Ox 97.7 F 98 H 20 119/83 97 11/02/16 06:00 11/02/16 13:23 11/02/16 13:23 11/02/16 13:23 11/02/16 11:23 Current Medications Generic Name Dose Route Start Last Admin Trade Name Freq PRN Reason Stop Dose Admin Acetaminophen 650 mg 11/01/16 22:00 11/02/16 10:06 Tylenol - PO Not Given BID [facility] Albuterol Sulfate 1 amp 10/25/16 00:00 11/02/16 11:23 Ventolin 0.083% Nebulizer Soln - NEB 1 amp QIDR [facility] Administration Atorvastatin Calcium 20 mg 10/24/16 22:00 11/01/16 21:24 Lipitor - PO 20 mg HS [facility] Administration Cholecalciferol 2,000 unit 10/25/16 10:00 11/02/16 10:06 Vitamin D3 - PO 2,000 unit DAILY [facility] Administration Diltiazem HCl 30 mg 10/30/16 22:00 11/01/16 21:24 Cardizem - PO 30 mg HS [facility] Administration Diltiazem HCl 60 mg 10/30/16 14:25 11/02/16 13:26 Cardizem - PO 60 mg BID@0600,1400 [facility] Administration Guaifenesin/Codeine Phosphate 5 ml 10/29/16 11:38 10/31/16 22:58 Robitussin Ac - PO 5 ml TID PRN Administration COUGH Ipratropium [place] 1 amp 10/25/16 00:00 11/02/16 11:23 Atrovent 0.02% Nebulizer - NEB 1 amp QIDR [facility] Administration Lorazepam 0.25 mg 11/02/16 09:38 Ativan - PO Q6H PRN ANXIETY Metformin HCl 500 mg 10/25/16 07:00 11/02/16 06:34 Glucophage Xr - PO 500 mg DAILY@0700 [facility] Administration Metoprolol Tartrate 25 mg 10/25/16 10:00 11/02/16 10:06 Lopressor - PO 25 mg DAILY [facility] Administration Montelukast Sodium 10 mg 10/24/16 22:00 11/01/16 21:24 Singulair - PO 10 mg HS [facility] Administration Oxycodone HCl 2.5 mg 10/24/16 19:25 11/01/16 11:26 Roxicodone - PO 2.5 mg Q4H PRN Administration PAIN Potassium Chloride 20 meq 11/02/16 10:00 11/02/16 10:06 K-Dur - PO 20 meq BID [facility] Administration Pregabalin 50 mg 10/24/16 22:00 11/02/16 10:06 Lyrica - PO 50 mg BID [facility] Administration Propylthiouracil 50 mg 10/25/16 10:00 11/02/16 10:06 Ptu - PO 50 mg DAILY [facility] Administration Ranitidine HCl 150 mg 10/24/16 22:00 11/02/16 10:06 Zantac - PO 150 mg BID [facility] Administration Warfarin Sodium 2.5 mg 10/30/16 18:00 11/01/16 17:41 Coumadin - PO Not Given DAILY@1800 [facility] INR, PTT INR 2.71 (0.82-1.09) H 11/02/16 06:00 CBC, BMP 11/02/16 06:00 11/02/16 06:00 Assessment/Plan: IgG Lillian Multiple Myeloma Anemia Afib on coumadin 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 -s/p 4 doses high dose dex -improved BUN/Cr. -supportive care. -previously discussed with family about treatment -INR monitoring for afib, presently therapeutic. -PT eval being done. possible d/c pending. Problem List - Problems (1) Anemia Code(s): D64.9 - ANEMIA, UNSPECIFIED Qualifiers: Anemia type: unspecified type Qualified Code(s): D64.9 - Anemia, unspecified (2) Multiple myeloma Code(s): C90.00 - MULTIPLE MYELOMA NOT HAVING ACHIEVED REMISSION Qualifiers: Multiple myeloma remission status: not in remission Qualified Code(s ): C90.00 - Multiple myeloma not having achieved remission (3) Atrial fibrillation Code(s): I48.91 - UNSPECIFIED ATRIAL FIBRILLATION Qualifiers: Atrial fibrillation type: chronic Qualified Code(s): I48.2 - Chronic atrial fibrillation
[2016-11-02] MEDS: WARFARIN NA 2.5 MG TABLET (FP) PO SCH (17:17)
[2016-11-02] MEDS: ATORVASTATIN CA 20 MG TABLET (FP) PO SCH (22:33)
[2016-11-02] MEDS: oxyCODONE HCL 5 MG TABLET PO PRN (22:34)
[2016-11-02] MEDS: MONTELUKAST NA 10 MG TABLET PO SCH (23:18)
[2016-11-03] MEDS: dilTIAZem HCL 30 MG TABLET (FP) PO SCH ×2 (05:57→14:48)
[2016-11-03] MEDS: IPRATROPIUM BR 0.02% 0.5 MG/2.5 ML VIAL.NEB. NEB SCH ×2 (06:40→12:31)
[2016-11-03] MEDS: ALBUTEROL SO4 0.083% IH SOL 2.5 MG/3 ML VIAL.NEB. NEB SCH ×2 (06:40→12:31)
[2016-11-03 08:48] LABS: INR 2.09 (0.82-1.09); PROTHROMBIN TIME (PATIENT) 23.3 SEC (9.98-11.88)
[2016-11-03 09:11] LABS: ANION GAP 8 (8-16); CALCIUM 8.3 mg/dL (8.5-10.1); CO2 27 mmol/L (21-32)
[2016-11-03 09:14] LABS: CREATININE 0.8 mg/dL (0.55-1.02); GLUCOSE,RANDOM 76 mg/dL (74-106)
[2016-11-03] MEDS ORDERED: PT OWN MED DRAWER 7, Y5N ONE ×2 (09:26→14:33)
[2016-11-03] MEDS: POTASSIUM CHLORIDE TABS 20 MEQ TABLET.ER (FP) PO SCH (09:57)
[2016-11-03] MEDS: METOPROLOL TARTRATE 25 MG TABLET (FP) PO SCH (09:57)
[2016-11-03] MEDS: PROPYLTHIOURACIL 50 MG TABLET (UD) PO SCH (09:58)
[2016-11-03] MEDS: PREGABALIN 50 MG CAPSULE PO SCH (09:58)
[2016-11-03] MEDS: ACETAMINOPHEN 325 MG TABLET (FP) PO SCH (09:59)
[2016-11-03] MEDS: CHOLECALCIFEROL (VITAMIN D3) 1,000 UNIT TABLET (FP) PO SCH (10:00)
[2016-11-03] MEDS: RANITIDINE HCL 150 MG TABLET (FP) PO SCH (10:01)
[2016-11-03] MEDS: oxyCODONE HCL 5 MG TABLET PO PRN (10:08)
[2016-11-03 10:17] VITALS: TEMP 97
--- NOTE | 2016-11-03 12:10 | DS ---
Physical Examination Vital Signs: Vital Signs Temperature 36.1 C L 11/03/16 10:00 Pulse Rate 103 H 11/03/16 10:00 Respiratory Rate 20 11/03/16 10:00 Blood Pressure 132/76 11/03/16 10:00 O2 Sat by Pulse Oximetry (%) 98 11/02/16 21:00 Constitutional: Yes: Well Nourished, No Distress, Calm Cardiovascular: Yes: Pulse Irregular. No: Tachycardia, Gallop, Murmur, Rub Respiratory: Yes: Regular, CTA Bilaterally. No: Rales, Rhonchi, Wheezes Gastrointestinal: Yes: Normal Bowel Sounds, Soft. No: Distention, Tenderness Extremities: Yes: WNL Edema: No Labs: CBC, BMP 11/02/16 06:00 11/03/16 07:45 Discharge Summary Reason For Visit: ANEMIA; WEAKNESS Current Active Problems Anemia (Acute) Multiple myeloma (Acute) Weakness (Acute) Hospital Course: (1) Anemia Code(s): D64.9 - ANEMIA, UNSPECIFIED Qualifiers: Anemia type: unspecified type Qualified Code(s): D64.9 - Anemia, unspecified (2) Weakness Code(s): R53.1 - WEAKNESS (3) Atrial fibrillation Code(s): I48.91 - UNSPECIFIED ATRIAL FIBRILLATION Qualifiers: Atrial fibrillation type: chronic Qualified Code(s): I48.2 - Chronic atrial fibrillation (4) Congestive heart failure Code(s): I50.9 - HEART FAILURE, UNSPECIFIED Qualifiers: Congestive heart failure type: diastolic Congestive heart failure chronicity: chronic Qualified Code(s): I50.32 - Chronic diastolic ( congestive) heart failure (5) Diabetes mellitus Code(s): E11.9 - TYPE 2 DIABETES MELLITUS WITHOUT COMPLICATIONS (6) Multiple myeloma Code(s): C90.00 - MULTIPLE MYELOMA NOT HAVING ACHIEVED REMISSION Qualifiers: Multiple myeloma remission status: not in remission Qualified Code(s ): C90.00 - Multiple myeloma not having achieved remission Ms Sanchez is a pleasant 86 year old female with multiple myeloma who comes in with weakness secondary to anemia. She was admitted into the hospital and transfused. She was also found to be slightly fluid overloaded and diuresed. She was seen by both cardiology and hematology. Hematology discussed options with patient and family about treatment of multiple myeloma, currently they prefer conservative management. She received 4 days of high dose steroids and was observed. Currently she is stable for discharge home with home VNS. 32 minutes spent in preparation of this discharge Condition: Fair - Instructions Diet, Activity, Other Instructions: resume previous diet and activity Referrals: Dallas Avalos MD [Primary Care Provider] - Aurn Smart MD [Staff Physician] - Crow Simmons MD [Staff Physician] - Disposition: VNS/HOME HEALTH CARE - Home Medications Comprehensive Discharge Medication List: Ambulatory Orders Atorvastatin Ca [Lipitor] 20 mg PO HS 08/14/16 Diltiazem [Cardizem -] 60 mg PO BID 08/14/16 Ergocalciferol (Vitamin D2) [Vitamin D2] 2,000 unit PO DAILY 08/14/16 Metformin HCl [Metformin HCl ER] 500 mg PO DAILY 08/14/16 Metoprolol Tartrate [Lopressor -] 25 mg PO DAILY 08/14/16 Montelukast Na [Singulair -] 10 mg PO HS 08/14/16 Pregabalin [Lyrica -] 50 mg PO BID 08/14/16 Propylthiouracil 50 mg PO DAILY 08/14/16 Ranitidine [Zantac -] 150 mg PO BID 08/14/16 Albuterol 0.083% Nebulizer [place] [Ventolin 0.083% Nebulizer Soln -] 1 amp NEB Q6H PRN #30 amp 08/26/16 Ipratropium 0.02% Nebulizer [Atrovent 0.02% Nebulizer -] 1 amp NEB Q6H PRN #30 amp 08/26/16 Oxycodone HCl [Roxicodone -] 2.5 mg PO Q4H PRN #60 tablet MDD 30mg 08/26/16 Warfarin Na [Coumadin -] 2.5 mg PO DAILY@1800 tablet 08/26/16 Acetaminophen [Tylenol] 650 mg PO BID 11/01/16 Lorazepam 0.25 mg PO BID 11/01/16 Bumetanide [Bumex -] 0.5 mg PO MOWEFR #30 tablet 11/03/16 Diltiazem [Cardizem -] 30 mg PO HS #30 tablet 11/03/16 Guaifenesin AC [Robitussin AC -] 5 ml PO TID PRN #1 bot MDD 20mg 11/03/16 Lorazepam [Ativan] 0.25 mg PO Q6H PRN #30 tablet MDD 3mg 11/03/16 Potassium Chloride [K-Dur -] 20 meq PO BID #60 tab.ec 11/03/16
[2016-11-03 15:51] VITALS: BP 130/85; PULSE 102
[2016-11-03] MEDS: WARFARIN NA 2.5 MG TABLET (FP) PO SCH (17:05)
== END 2016-11-03 17:18 | disposition home health service (06) | DRG 840 ==
LOC: JER 12:49 → JERBED 18:05 → J5S 21:15
PROVIDERS: ADMIT Specialist; ATTEND Specialist
PROC: 30233N1 Transfusion of Nonautologous Red Blood Cells into Peripheral Vein, Percutaneous Approach (ICD-10-PCS; principal; 2016-11-03)
DX: C90.00 Multiple myeloma not having achieved remission (principal); I50.33 Acute on chronic diastolic (congestive) heart failure; D64.9 Anemia, unspecified; I48.2 Chronic atrial fibrillation; J44.9 Chronic obstructive pulmonary disease, unspecified; E11.9 Type 2 diabetes mellitus without complications; R53.1 Weakness; E87.70 Fluid overload, unspecified; N28.9 Disorder of kidney and ureter, unspecified; E78.5 Hyperlipidemia, unspecified; E05.90 Thyrotoxicosis, unspecified without thyrotoxic crisis or storm; R13.10 Dysphagia, unspecified; E83.39 Other disorders of phosphorus metabolism; I34.0 Nonrheumatic mitral (valve) insufficiency; Z87.891 Personal history of nicotine dependence
CPT/HCPCS: 36415; 36430; 71010-TC; 80048; 80053; 82272; 82728; 83540; 83550; 83615; 83735; 83883; 84100; 84155; 84165; 84443; 84466; 84484; 85025; 85044; 85610; 85810; 86850; 86900; 86901; 86922; 93005; 93010; 94640; 97116-GP; 97161-GP; 99285-25; P9038; P9058

== ENCOUNTER 2016-11-10 15:20 | Inpatient (IN) | payer OTHER ==
[2016-11-10 15:47] VITALS: BMI 23.8
--- NOTE | 2016-11-10 16:18 | PDOC ---
History of Present Illness - History of Present Illness Initial Comments: 11/10/16 17:08 The patient is a 86 year old female, with a significant past medical history of multiple myeloma, anemia, afib, CHF, and DM , who presents to the emergency department sent by PCP with shortness of breath. As per the aide, patient has associated symptoms of bilateral ankle edema. Patient states that her SOB is exacerbated when supine. She also reports decreased urinary output. Patient presented to the ER yesterday for diffuse pain and SOB. Patients aide also reports that she has a previous skin tear that is currently being cleaned and dressed by her visiting nurse. She denies recent chest pain. She denies coughing. She denies recent fevers, chills, headache or dizziness. She denies recent nausea, vomit, diarrhea or constipation. She denies recent dysuria, urgency or hematuria. Social history: Nonsmoker. Denies EtOH use and recreational drug use. Primary Care Physician: Dr. Dallas Avalos <Erlinda Desir - Last Filed: 11/10/16 23:25> <Chloe Lim - Last Filed: 11/11/16 00:46> - General Chief Complaint: Shortness of Breath Stated Complaint: short of breath Time Seen by Provider: 11/10/16 16:15 Past History <Erlinda Desir - Last Filed: 11/10/16 23:25> - Past Medical History Anemia: No Asthma: No Cancer: Yes (W/U in progress for BRAIN TUMOR) Cardiac Disorders: Yes (afib) CVA: No COPD: Yes CHF: Yes (A-FIB) Dementia: No Diabetes: Yes (NIDDM) GI Disorders: No Disorders: Yes (UTI) HTN: Yes Hypercholesterolemia: Yes Liver Disease: No Seizures: No Thyroid Disease: No - Surgical History Abdominal Surgery: No Appendectomy: No Cardiac Surgery: No Cholecystectomy: No Lung Surgery: No Neurologic Surgery: No Orthopedic Surgery: No - Immunization History Immunization Up to Date: Yes - Psycho/Social/Smoking Cessation Hx Anxiety: No Suicidal Ideation: No Smoking Status: Yes Smoking History: Never smoked Have you smoked in the past 12 months: No Number of Cigarettes Smoked Daily: 0 If you are a former smoker, when did you quit?: 1989 Information on smoking cessation initiated: No Hx Alcohol Use: No Drug/Substance Use Hx: No Substance Use Type: None Hx Substance Use Treatment: No <Chloe Lim - Last Filed: 11/11/16 00:46> - Past Medical History Allergies/Adverse Reactions: Allergies Allergy/AdvReac Type Severity Reaction Status Date / Time Iodinated Contrast- Oral and Allergy Verified 11/10/16 15:40 IV Dye [IV Dye, Iodine Containing Contrast ] Sulfa (Sulfonamide Allergy Verified 11/10/16 15:40 Antibiotics) Home Medications: Ambulatory Orders Atorvastatin Ca [Lipitor] 20 mg PO HS 08/14/16 Diltiazem [Cardizem -] 60 mg PO BID 08/14/16 Ergocalciferol (Vitamin D2) [Vitamin D2] 2,000 unit PO DAILY 08/14/16 Metformin HCl [Metformin HCl ER] 500 mg PO DAILY 08/14/16 Metoprolol Tartrate [Lopressor -] 25 mg PO DAILY 08/14/16 Montelukast Na [Singulair -] 10 mg PO HS 08/14/16 Pregabalin [Lyrica -] 50 mg PO BID 08/14/16 Propylthiouracil 50 mg PO DAILY 08/14/16 Ranitidine [Zantac -] 150 mg PO BID 08/14/16 Albuterol 0.083% Nebulizer [place] [Ventolin 0.083% Nebulizer Soln -] 1 amp NEB Q6H PRN #30 amp 08/26/16 Ipratropium 0.02% Nebulizer [Atrovent 0.02% Nebulizer -] 1 amp NEB Q6H PRN #30 amp 08/26/16 Oxycodone HCl [Roxicodone -] 2.5 mg PO Q4H PRN #60 tablet MDD 30mg 08/26/16 Acetaminophen [Tylenol] 650 mg PO BID 11/01/16 Lorazepam 0.25 mg PO BID 11/01/16 Bumetanide [Bumex -] 0.5 mg PO MOWEFR #30 tablet 11/03/16 Guaifenesin AC [Robitussin AC -] 5 ml PO TID PRN #1 bot MDD 20mg 11/03/16 Lorazepam [Ativan] 0.25 mg PO Q6H PRN #30 tablet MDD 3mg 11/03/16 Potassium Chloride [K-Dur -] 20 meq PO BID #60 tab.ec 11/03/16 Nitrofurantoin Monohyd/M-Cryst [Macrobid -] 100 mg PO BID #14 capsule 11/09/16 Warfarin Na [Coumadin -] 4 mg PO DAILY@1800 11/10/16 Review of Systems - Review of Systems Comments:: 11/10/16 17:08 GENERAL/CONSTITUTIONAL: No fever or chills. No weakness. HEAD, EYES, EARS, NOSE AND THROAT: No change in vision. No ear pain or discharge. No sore throat. GASTROINTESTINAL: No nausea, vomiting, diarrhea or constipation. GENITOURINARY: + decreased urinary output. No dysuria. CARDIOVASCULAR: +shortness of breath. + bilateral ankle edema. No chest pain. RESPIRATORY: No cough, wheezing, or hemoptysis. MUSCULOSKELETAL: No joint or muscle swelling or pain. No neck or back pain. SKIN: +skin tear on back NEUROLOGIC: No headache, vertigo, loss of consciousness, or change in strength/ sensation. ENDOCRINE: No increased thirst. No abnormal weight change. HEMATOLOGIC/LYMPHATIC: No easy bleeding, or history of blood clots. ALLERGIC/IMMUNOLOGIC: No hives or skin allergy <Erlinda Desir - Last Filed: 11/10/16 23:25> *Physical Exam - Vital Signs Last Vital Signs Temp Pulse Resp BP Pulse Ox 98.2 F 74 20 113/78 98 11/10/16 15:40 11/10/16 15:40 11/10/16 15:40 11/10/16 15:40 11/10/16 15:40 <Erlinda Desir - Last Filed: 11/10/16 23:25> - Vital Signs Last Vital Signs Temp Pulse Resp BP Pulse Ox 98.2 F 74 20 113/78 98 11/10/16 15:40 11/10/16 15:40 11/10/16 15:40 11/10/16 15:40 11/10/16 15:40 - Physical Exam Comments: GENERAL: Awake, alert, and fully oriented, in no acute distress HEAD: No signs of trauma EYES: PERRLA, EOMI, sclera anicteric, conjunctiva clear ENT: Auricles normal inspection, hearing grossly normal, nares patent, oropharynx clear without exudates. Moist mucosa NECK: Normal ROM, supple, no lymphadenopathy, JVD, or masses LUNGS: Mild tachypnea. +Crackles [address] B/L. Good air entry B/L. No wheezes. HEART: Regular rate and rhythm, normal S1 and S2, no murmurs, rubs or gallops ABDOMEN: Soft, nontender, normoactive bowel sounds. No guarding, no rebound. No masses EXTREMITIES: Normal range of motion, 2+ pitting edema to the ankles B/L. No clubbing or cyanosis. No cords, erythema, or tenderness NEUROLOGICAL: Cranial nerves II through XII grossly intact. Normal speech. Motor and sensation grossly intact. SKIN: Warm, Dry, normal turgor, no rashes or lesions noted. <Chloe Lim - Last Filed: 11/11/16 00:46> ED Treatment Course - LABORATORY CBC & Chemistry Diagram: 11/10/16 16:35 11/10/16 16:35 - RADIOLOGY Radiograph Interpretation: 11/10/16 17:15 Chest X-Ray Reported by: Dr. Socrates Charles Impression: Since 11/09/16, elevated left hemidiaphragm with bibasal atelectasis and consolidation on the left as well as likely left pleural effusion are again seen. There remains moderate to marked cardiomegaly. Bilateral increased interstitial markings suggestive upper mild venous congestion versus infiltrates 11/10/16 23:[address] Reported by: Dr. Socrates Charles Impression: Significant eventration of the left hemidiaphragm as well as a large hiatus hernia again seen. Interval compressive atelectatic changes in the left lung as well as dependent portion of the right lower lobe with likely superimposed infiltrates. Minimal right pleural effusion. <Erlinda Desir - Last Filed: 11/10/16 23:25> - LABORATORY CBC & Chemistry Diagram: 11/10/16 16:35 11/10/16 16:35 <Chloe Lim - Last Filed: 11/11/16 00:46> Medical Decision Making - Medical Decision Making Patient is afebrile, has history of large hiatal hernia, partially compressing the lung. Will not treat with abx, as the clinical history is more consistent with CHF. Patient given lasix. D/w Dr. Simpson, will admit to med/surg. <Chloe Lim - Last Filed: 11/11/16 00:46> *DC/Admit/Observation/Transfer - Attestations Scribe Attestion: 11/10/16 17:09 Documentation prepared by Erlinda Desir, acting as resident medical officer for Chloe Lim MD. <Erlinda Desir - Last Filed: 11/10/16 23:25> - Discharge Dispostion Admit: Yes <Chloe Lim - Last Filed: 11/11/16 00:46> Diagnosis at time of Disposition: CHF exacerbation Qualifiers: Congestive heart failure type: unspecified congestive heart failure type Qualified Code(s): I50.9 - Heart failure, unspecified - Discharge Dispostion Condition at time of disposition: Stable - Referrals
[2016-11-10 17:09] LABS: BASOPHIL 0.6 % (0-2.0); MCH 29.8 pg (25.7-33.7); MCHC 32.5 g/dl (32.0-36.0); MEAN CELL VOLUME 91.9 fl (80-96); MEAN PLT VOLUME 8.9 fl (7.5-11.1); NEUTROPHILS 74.3 % (42.8-82.8); PLATELET COUNT 240 K/MM3 (134-434); RDW 17.8 % (11.6-15.6); WHITE BLOOD COUNT 8.6 K/mm3 (4.0-10.0)
[2016-11-10 17:23] LABS: INR 1.39 (0.82-1.09); PROTHROMBIN TIME (PATIENT) 15.4 SEC (9.98-11.88)
[2016-11-10 17:53] LABS: ALBUMIN 2.6 g/dl (3.4-5.0); ANION GAP 6 (8-16); BILIRUBIN,TOTAL 0.6 mg/dL (0.2-1.0); CALCIUM 8.8 mg/dL (8.5-10.1); CO2 32 mmol/L (21-32); CREATININE 0.8 mg/dL (0.55-1.02); GLUCOSE,RANDOM 83 mg/dL (74-106); SGPT/ALT 25 U/L (12-78)
[2016-11-10 17:57] LABS: ALK PHOS 114 U/L (45-117); CPK 39 IU/L (26-192); TOT PROT 8.2 g/dl (6.4-8.2); TROPONIN I < 0.02 ng/ml (0.00-0.05)
[2016-11-10 17:58] LABS: SGOT/AST 31 U/L (15-37)
[2016-11-10] MEDS ORDERED: FUROSEMIDE 40 MG/4 ML INJECTABLE VIAL IVPUSH ONE (18:22)
[2016-11-10] MEDS ORDERED: FUROSEMIDE 40 MG/4 ML INJECTABLE VIAL ONE (18:31)
[2016-11-10] MEDS ORDERED: LORazepam 0.5 MG TABLET PO PRN (23:24)
[2016-11-10] MEDS ORDERED: oxyCODONE HCL 5 MG TABLET PO PRN (23:24)
[2016-11-10] MEDS ORDERED: guaiFENesin/CODEINE 5 ML UNIT-DOSE CUPS PO PRN (23:24)
[2016-11-10] MEDS ORDERED: ONDANSETRON 4 MG/2 ML VIAL IVPB PRN (23:25)
[2016-11-11] MEDS ORDERED: CEFTRIAXONE 50 ML ONE (00:21)
[2016-11-11] MEDS: CEFTRIAXONE 50 ML IVPB SCH ×2 (00:25→12:00)
[2016-11-11] MEDS ORDERED: FUROSEMIDE 40 MG/4 ML INJECTABLE VIAL IVPB SCH (06:00)
[2016-11-11] MEDS: IPRATROPIUM BR 0.02% 0.5 MG/2.5 ML VIAL.NEB. NEB PRN (06:45)
[2016-11-11] MEDS: ALBUTEROL SO4 0.083% IH SOL 2.5 MG/3 ML VIAL.NEB. NEB PRN (06:45)
[2016-11-11 07:33] LABS: BASOPHIL 0.7 % (0-2.0); EOSINOPHIL 1.7 % (0-4.5); MCH 29.3 pg (25.7-33.7); MCHC 31.8 g/dl (32.0-36.0); MEAN CELL VOLUME 92.1 fl (80-96); MEAN PLT VOLUME 8.4 fl (7.5-11.1); NEUTROPHILS 76.7 % (42.8-82.8); PLATELET COUNT 215 K/MM3 (134-434); RDW 17.3 % (11.6-15.6); WHITE BLOOD COUNT 7.3 K/mm3 (4.0-10.0)
[2016-11-11 07:56] LABS: INR 1.28 (0.82-1.09); PROTHROMBIN TIME (PATIENT) 14.1 SEC (9.98-11.88)
[2016-11-11 08:41] LABS: ANION GAP 9 (8-16); CALCIUM 8.8 mg/dL (8.5-10.1); CO2 32 mmol/L (21-32); CREATININE 0.8 mg/dL (0.55-1.02); GLUCOSE,RANDOM 81 mg/dL (74-106); PHOSPHOROUS 3.1 mg/dL (2.5-4.9)
[2016-11-11] MEDS ORDERED: PATIENT'S OWN MEDICATION (NON-FORMULARY) (Ergocalciferol (Vitamin D2) [Vitamin D2] 2,000 U PO SCH (10:00)
[2016-11-11] MEDS ORDERED: PATIENT'S OWN MEDICATION (NON-FORMULARY) (Metformin Hcl [Metformin Hcl Er] 500 MG) PO SCH (10:00)
--- NOTE | 2016-11-11 11:10 | HP ---
Admitting History and Physical - Primary Care Physician PCP: Dallas Avalso - Admission Chief Complaint: I was short of breath History of Present Illness: Ms Sanchez is a pleasant 86 year old female who was brought in by her family for shortness of breath and leg swelling. Most of the history comes from the son who is at the bedside as patient is becoming a more unreliable historian. Per the son patient has been stable since last discharge. However on Thursday, while he was not there, she was brought in for concern of leg swelling. however in the ER they said she was short of breath. She was worked up and found have a UTI and was treated. She was feeling better and was discharged home. However at home she once again had leg swelling. She was seen by her visiting nurse and sent in. Per patient she has been doing well. She says she has pain when she moves but otherwise is fine. She denies fevers, chills, lightheadedness, passing out, shortness of breath, chest pain, nausea, vomiting, abdominal pain, diarrhea, constipation, or difficulty urinating. She says she is tired of coming back to the hospital and asks to stay for a while. History Source: Patient, Family Member Limitations to Obtaining History: Poor Historian - Past Medical History Cardiovascular: Yes: AFIB, HTN, Hyperlipdemia Pulmonary: Yes: COPD Renal/: Yes: UTI (recent Hx of ESBL UTI) ...: No Heme/Onc: Yes: Anemia, Other (multiple myeloma) Endocrine: Yes: Diabetes Mellitus - Past Surgical History Past Surgical History: Yes: Joint Replacement - Smoking History Smoking history: Never smoked Have you smoked in the past 12 months: No Aproximately how many cigarettes per day: 0 If you are a former smoker, when did you quit?: 1989 - Alcohol/Substance Use Hx Alcohol Use: No History of Substance Use: reports: None - Social History Usual Living Arrangement: Yes: With Child ADL: Family Assistance Occupation: Retired History of Recent Travel: No Home Medications - Allergies Allergies/Adverse Reactions: Allergies Allergy/AdvReac Type Severity Reaction Status Date / Time Iodinated Contrast- Oral and Allergy Verified 11/10/16 15:40 IV Dye [IV Dye, Iodine Containing Contrast ] Sulfa (Sulfonamide Allergy Verified 11/10/16 15:40 Antibiotics) - Home Medications Home Medications: Ambulatory Orders Atorvastatin Ca [Lipitor] 20 mg PO HS 08/14/16 Diltiazem [Cardizem -] 60 mg PO BID 08/14/16 Ergocalciferol (Vitamin D2) [Vitamin D2] 2,000 unit PO DAILY 08/14/16 Metformin HCl [Metformin HCl ER] 500 mg PO DAILY 08/14/16 Metoprolol Tartrate [Lopressor -] 25 mg PO DAILY 08/14/16 Montelukast Na [Singulair -] 10 mg PO HS 08/14/16 Pregabalin [Lyrica -] 50 mg PO BID 08/14/16 Propylthiouracil 50 mg PO DAILY 08/14/16 Ranitidine [Zantac -] 150 mg PO BID 08/14/16 Albuterol 0.083% Nebulizer Juani [Ventolin 0.083% Nebulizer Soln -] 1 amp NEB Q6H PRN #30 amp 08/26/16 Ipratropium 0.02% Nebulizer [Atrovent 0.02% Nebulizer -] 1 amp NEB Q6H PRN #30 amp 08/26/16 Oxycodone HCl [Roxicodone -] 2.5 mg PO Q4H PRN #60 tablet MDD 30mg 08/26/16 Acetaminophen [Tylenol] 650 mg PO BID 11/01/16 Lorazepam 0.25 mg PO BID 11/01/16 Bumetanide [Bumex -] 0.5 mg PO MOWEFR #30 tablet 11/03/16 Guaifenesin AC [Robitussin AC -] 5 ml PO TID PRN #1 bot MDD 20mg 11/03/16 Lorazepam [Ativan] 0.25 mg PO Q6H PRN #30 tablet MDD 3mg 11/03/16 Potassium Chloride [K-Dur -] 20 meq PO BID #60 tab.ec 11/03/16 Nitrofurantoin Monohyd/M-Cryst [Macrobid -] 100 mg PO BID #14 capsule 11/09/16 Warfarin Na [Coumadin -] 4 mg PO DAILY@1800 11/10/16 Family Disease History - Family Disease History Family Disease History: [place]: Father, Mother, Sister, Other: Son (2 healthy), Daughter (4 healthy) Review of Systems Findings/Remarks: Full review of systems obtained, as per HPI and otherwise negative Physical Examination Vital Signs: Vital Signs Temperature 36.9 C 11/11/16 09:46 Pulse Rate 114 H 11/11/16 09:46 Respiratory Rate 20 11/11/16 09:46 Blood Pressure 134/76 11/11/16 09:46 O2 Sat by Pulse Oximetry (%) 97 11/11/16 01:00 Constitutional: Yes: No Distress, Calm Eyes: Yes: Conjunctiva Clear, EOM Intact, PERRL HENT: Yes: Atraumatic, Normocephalic Cardiovascular: Yes: Pulse Irregular. No: Tachycardia, Gallop, Murmur, Rub Respiratory: Yes: Regular, CTA Bilaterally, On Nasal O2. No: Rales, Rhonchi, Wheezes Gastrointestinal: Yes: Normal Bowel Sounds, Soft. No: Distention, Tenderness Extremities: Yes: WNL Edema: Yes Edema: LLE: 1+, RLE: Trace Labs: CBC, BMP 11/11/16 06:00 11/11/16 06:00 Imaging - Results Chest X-ray: Report Reviewed, Image Reviewed Cat Scan: Report Reviewed Problem List - Problems (1) Congestive heart failure Assessment/Plan: -seen patient today, does not appear fluid overloaded -cardiology seeing patient, also feels not fluid overloaded -received IV lasix, will stop -restart bumex -monitor Code(s): I50.9 - HEART FAILURE, UNSPECIFIED Qualifiers: Congestive heart failure type: diastolic Congestive heart failure chronicity: chronic Qualified Code(s): I50.32 - Chronic diastolic ( congestive) heart failure (2) COPD (chronic obstructive pulmonary disease) Assessment/Plan: -patient subjectively short of breath -continue oxygen -continue singulair and duonebs Code(s): J44.9 - CHRONIC OBSTRUCTIVE PULMONARY DISEASE, UNSPECIFIED (3) UTI (urinary tract infection) Assessment/Plan: -possible UTI found on Thursday -placed on rocephin -continue currently Code(s): N39.0 - URINARY TRACT INFECTION, SITE NOT SPECIFIED Qualifiers: Urinary tract infection type: acute cystitis Hematuria presence: without hematuria Qualified Code(s): N30.00 - Acute cystitis without hematuria (4) Atrial fibrillation Assessment/Plan: -controlled -INR subtherapeutic -continue coumadin, increase as necessary Code(s): I48.91 - UNSPECIFIED ATRIAL FIBRILLATION Qualifiers: Atrial fibrillation type: chronic Qualified Code(s): I48.2 - Chronic atrial fibrillation (5) Diabetes mellitus Assessment/Plan: -well controlled -continue metformin Code(s): E11.9 - TYPE 2 DIABETES MELLITUS WITHOUT COMPLICATIONS (6) Hyperlipidemia Assessment/Plan: -continue lipitor Code(s): E78.5 - HYPERLIPIDEMIA, UNSPECIFIED (7) Intractable back pain Assessment/Plan: -increase oxycodone Code(s): M54.9 - DORSALGIA, UNSPECIFIED (8) Multiple myeloma Assessment/Plan: -patient refuses treatment Code(s): C90.00 - MULTIPLE MYELOMA NOT HAVING ACHIEVED REMISSION Qualifiers: Multiple myeloma remission status: not in remission Qualified Code(s ): C90.00 - Multiple myeloma not having achieved remission Assessment/Plan -patient would ultimately benefit from hospice -family still processing prognosis
--- NOTE | 2016-11-11 11:17 | CON.CARD ---
Cardiology Consult (text) - Consultation Consultation Note: CC: afib 86 yo with h/o UTI diagnosed 2 days ago at separate ER visit, afib, diastolic CHF, htn, hl, h/o rheumatic fever, mild-moderate MR, Dm, meningioma, multiple myeloma (recent admit this month for recurrent anemia, subclinical hyperthyroidism on PTU who presents with worsened LE edema. Brought to ER 11/09 by family b/c of concern for dyspnea. at that time patient was noted to have UTI (family already was aware, had been about to receive abx) . Patient d/c home, but returned the following day b/c of concern that her LE edema was worse. over the course of the week since last discharge had uptitrated bumex 0.5 mg MWF to daily b/c of LE edema. States she is not sob but gets sob when she is in pain. S/p IV lasix 40 mg last night and this morning. She denies orthopnea, pnd, palps, lightheadedness, bleeding, or transient neurologic symptoms. + fatigue + pain from decub She denies fevers, chills, sweats, nausea, vomiting, diarrhea, headache, congestion, visual disturbances. PO intake stable. PMhx/pshx: per hpi Family hx: sister with PPM Social hx: former smoker , no etoh or illicits ROS: Per HPI. Ambulatory Orders Atorvastatin Ca [Lipitor] 20 mg PO HS 08/14/16 Diltiazem [Cardizem -] 60 mg PO BID 08/14/16 Ergocalciferol (Vitamin D2) [Vitamin D2] 2,000 unit PO DAILY 08/14/16 Metformin HCl [Metformin HCl ER] 500 mg PO DAILY 08/14/16 Metoprolol Tartrate [Lopressor -] 25 mg PO DAILY 08/14/16 Montelukast Na [Singulair -] 10 mg PO HS 08/14/16 Pregabalin [Lyrica -] 50 mg PO BID 08/14/16 Propylthiouracil 50 mg PO DAILY 08/14/16 Ranitidine [Zantac -] 150 mg PO BID 08/14/16 Albuterol 0.083% Nebulizer Juani [Ventolin 0.083% Nebulizer Soln -] 1 amp NEB Q6H PRN #30 amp 08/26/16 Ipratropium 0.02% Nebulizer [Atrovent 0.02% Nebulizer -] 1 amp NEB Q6H PRN #30 amp 08/26/16 Oxycodone HCl [Roxicodone -] 2.5 mg PO Q4H PRN #60 tablet MDD 30mg 08/26/16 Acetaminophen [Tylenol] 650 mg PO BID 11/01/16 Lorazepam 0.25 mg PO BID 11/01/16 Bumetanide [Bumex -] 0.5 mg PO MOWEFR #30 tablet 11/03/16 Guaifenesin AC [Robitussin AC -] 5 ml PO TID PRN #1 bot MDD 20mg 11/03/16 Lorazepam [Ativan] 0.25 mg PO Q6H PRN #30 tablet MDD 3mg 11/03/16 Potassium Chloride [K-Dur -] 20 meq PO BID #60 tab.ec 11/03/16 Nitrofurantoin Monohyd/M-Cryst [Macrobid -] 100 mg PO BID #14 capsule 11/09/16 Warfarin Na [Coumadin -] 4 mg PO DAILY@1800 11/10/16 Current Medications Acetaminophen (Tylenol -) 650 mg PO Q4H PRN PRN Reason: FEVER OR PAIN Albuterol Sulfate (Ventolin 0.083% Nebulizer Soln -) 1 amp NEB Q6H PRN PRN Reason: SHORT OF BREATH/WHEEZING Last Admin: 11/11/16 06:45 Dose: 1 amp Atorvastatin Calcium (Lipitor -) 20 mg PO HS [facility] Cholecalciferol (Vitamin D3 -) 2,000 unit PO DAILY [facility] Diltiazem HCl (Cardizem -) 60 mg PO BID [facility] Furosemide (Lasix Injection -) 40 mg IVPB BID@0600,1400 [facility] Last Admin: 11/11/16 06:46 Dose: 40 mg Guaifenesin/Codeine Phosphate (Robitussin Ac -) 5 ml PO Q8H PRN PRN Reason: COUGH Ceftriaxone Sodium (Rocephin 1gm Ivpb (Pre-Docked)) 50 mls @ 100 mls/hr IVPB DAILY [facility] Last Admin: 11/11/16 00:25 Dose: 100 mls/hr Ipratropium [place] (Atrovent 0.02% Nebulizer -) 1 amp NEB Q6H PRN PRN Reason: WHEEZING Last Admin: 11/11/16 06:45 Dose: 1 amp Lactobacillus Acidophilus (Bacid -) 1 tab PO DAILY [facility] Lorazepam (Ativan -) 0.25 mg PO Q6H PRN PRN Reason: ANXIETY Lorazepam (Ativan -) 0.25 mg PO BID [facility] Metformin HCl (Glucophage Xr -) 500 mg PO ACBK [facility] Last Admin: 11/11/16 06:46 Dose: 500 mg Metoprolol Tartrate (Lopressor -) 25 mg PO DAILY [facility] Montelukast Sodium (Singulair -) 10 mg PO HS [facility] Ondansetron HCl (Zofran Injection) 4 mg IVPB Q6H PRN PRN Reason: NAUSEA Oxycodone HCl (Roxicodone -) 2.5 mg PO Q4H PRN PRN Reason: PAIN Potassium Chloride (K-Dur -) 20 meq PO BID [facility] Pregabalin (Lyrica -) 50 mg PO BID [facility] Propylthiouracil (Ptu -) 50 mg PO DAILY [facility] Ranitidine HCl (Zantac -) 150 mg PO BID [facility] Warfarin Sodium (Coumadin -) 4 mg PO DAILY@1800 [facility] Vital Signs - 24 hr 11/10/16 11/10/16 11/10/16 15:40 23:41 23:42 Temperature 98.2 F Pulse Rate 74 Pulse Rate [ 98 H Left Brachial] Respiratory 20 16 Rate Blood Pressure 113/78 Blood Pressure 127/75 [Left Arm] O2 Sat by Pulse 98 96 96 Oximetry (%) 11/11/16 11/11/16 11/11/16 01:00 05:57 09:46 Temperature 98.2 F 98.5 F 98.4 F Pulse Rate 99 H 112 H 114 H Pulse Rate [ Left Brachial] Respiratory 18 20 20 Rate Blood Pressure 126/75 135/90 134/76 Blood Pressure [Left Arm] O2 Sat by Pulse 97 Oximetry (%) Intake & Output 11/09/16 11/10/16 11/11/16 11/12/16 07:59 07:59 07:59 07:59 Weight 138 lb 6 oz NAD, calm JVD flat, neck supple irregularly irregular, nl rate nl s1, s2 2/6 murmur at sternal border and apex dullness at left base, nl eff + bs soft nt nd ext without edema no cyanosis or clubbing + dp/pt no jaundice, diaphoresis CBC, BMP 11/11/16 06:00 11/11/16 06:00 Laboratory Tests 11/10/16 16:35 INR Magnesium Troponin I < 0.02 B-Natriuretic Peptide 940.35 H Albumin 2.6 L 11/11/16 11/11/16 06:00 06:00 INR 1.28 H Magnesium 2.0 Troponin I B-Natriuretic Peptide Albumin Laboratory Tests 08/19/16 16:39 Troponin I B-Natriuretic Peptide 878.48 H EKG: afib, no ischemic changes. Echo 06/2015: afib, nl LV/RV, mild-mod MR/TR, hi LAP, mild ao root dil MIBI 2012: no ST changes, probable breast artifact vs. AW ischemia. Nl EF PFTs 2013: no obstr, mild restr, mild decr DLCO reviewed ct scan. possible right basilar atelectasis vs. infitrate. minimal effusion. no pulmonary edema 86 yo with h/o UTI diagnosed 2 days ago at separate ER visit, afib, diastolic CHF, htn, hl, h/o rheumatic fever, mild-moderate MR, Dm, meningioma, multiple myeloma (recent admit this month for recurrent anemia, subclinical hyperthyroidism on PTU who presents with worsened LE edema. Afib - well controlled at "lenient rate control" targest on home regimen: DILTIAZEM (60 AM, 60 LUNCH, 30 PM) AND LOW DOSE TOPROL (25). (has h/o bradycardia and hypotension of ? etiology--stable long time on reduced med regimen). currently on diltiazem bid, will resume outpatient diltiazem tid dosing. . - cont coumadin (goal INR 2-3), - pain control per pmd. sob, diastolic CHF, copd - multifactorial chronic sob (copd, diast chf, and ? related to very large hiatal hernia). Likely exacerbated here by pain --> pain control per pmd. - large hiatal hernia obscures most of L lung on cxr. - s/p diuresis with lasix 40 mg iv x 2. CT scan does not show pulmonary edema. Appears euvolemic, will transition to outpatient bumex 0.5 mg daily. mild-mod MR - functional, likely related to volume status - echo 06/2015 stable anemia/multiple myeloma - 2/2 multiple myeloma. s/p transfusion, heme following - monitor on coumadin Emphysema H/O WHEEZING IN PAST--STABLE OF LATE stable from CV perspective.
[2016-11-11] MEDS ORDERED: DEXTROSE 5%-WATER - 50 ML IVPB ONE (11:31)
[2016-11-11] MEDS ORDERED: cefTRIAXone SODIUM 1 GM VIAL ONE (11:31)
[2016-11-11] MEDS: dilTIAZem HCL 60 MG TABLET (FP) PO SCH ×2 (11:38→21:54)
[2016-11-11] MEDS: CEFTRIAXONE 1 GM in DEXTROSE 5%-WATER - 50 ML IVPB SCH (11:38)
[2016-11-11] MEDS: LACTOBACILLUS ACIDOPHILUS 1 EACH TAB (FP) PO SCH (11:38)
[2016-11-11] MEDS: POTASSIUM CHLORIDE TABS 20 MEQ TABLET.ER (FP) PO SCH ×2 (11:38→21:56)
[2016-11-11] MEDS: RANITIDINE HCL 150 MG TABLET (FP) PO SCH ×2 (11:39→21:55)
[2016-11-11] MEDS: METOPROLOL TARTRATE 25 MG TABLET (FP) PO SCH (11:39)
[2016-11-11] MEDS: LORazepam 0.5 MG TABLET PO SCH ×2 (11:39→21:55)
[2016-11-11] MEDS: CHOLECALCIFEROL (VITAMIN D3) 1,000 UNIT TABLET (FP) PO SCH (11:39)
[2016-11-11] MEDS: PREGABALIN 50 MG CAPSULE PO SCH ×2 (11:39→21:55)
--- NOTE | 2016-11-11 13:08 | EKG ---
Test Reason : Blood Pressure : / mmHG Vent. Rate : 083 BPM Atrial Rate : 105 BPM P-R Int : 000 ms QRS Dur : 074 ms QT Int : 358 ms P-R-T Axes : 000 -21 028 degrees QTc Int : 420 ms ATRIAL FIBRILLATION WITH CONTROLLED VENTRICULAR RESPONSE. ABNORMAL ECG WHEN COMPARED WITH ECG OF 09-NOV-2016 01:58, PREVIOUS ECG HAS UNDETERMINED RHYTHM, NEEDS REVIEW REPEAT EKG IF CLINICALLY INDICATED Confirmed by CORTEZ HERRING MD ([id number]) on 11/11/2016 1:08:01 PM Referred By: Confirmed By:CORTEZ HERRING MD
[2016-11-11] MEDS: PROPYLTHIOURACIL 50 MG TABLET (UD) PO SCH (13:44)
[2016-11-11] MEDS: ACETAMINOPHEN 325 MG TABLET (FP) PO PRN (15:06)
[2016-11-11] MEDS: oxyCODONE HCL 5 MG TABLET PO PRN (15:07)
[2016-11-11] MEDS: WARFARIN NA 2 MG TABLET (UD) PO SCH (18:33)
[2016-11-11] MEDS: ATORVASTATIN CA 20 MG TABLET (FP) PO SCH (21:54)
[2016-11-11] MEDS: MONTELUKAST NA 10 MG TABLET PO SCH (21:55)
[2016-11-12 07:28] LABS: BASOPHIL 0.7 % (0-2.0); EOSINOPHIL 2.3 % (0-4.5); MCH 29.1 pg (25.7-33.7); MCHC 31.6 g/dl (32.0-36.0); MEAN CELL VOLUME 92.1 fl (80-96); MEAN PLT VOLUME 8.3 fl (7.5-11.1); NEUTROPHILS 69.8 % (42.8-82.8); PLATELET COUNT 199 K/MM3 (134-434); RDW 17.3 % (11.6-15.6); WHITE BLOOD COUNT 6.8 K/mm3 (4.0-10.0)
[2016-11-12 07:51] LABS: ANION GAP 10 (8-16); CALCIUM 8.6 mg/dL (8.5-10.1); CO2 29 mmol/L (21-32); CREATININE 0.8 mg/dL (0.55-1.02); GLUCOSE,RANDOM 91 mg/dL (74-106); MAGNESIUM 1.8 mg/dL (1.8-2.4); PHOSPHOROUS 2.8 mg/dL (2.5-4.9)
[2016-11-12] MEDS ORDERED: cefTRIAXone SODIUM 1 GM VIAL ONE (09:21)
[2016-11-12] MEDS ORDERED: PT OWN MED DRAWER 7, Y5N ONE ×2 (09:21→21:04)
[2016-11-12] MEDS ORDERED: DEXTROSE 5%-WATER - 50 ML IVPB ONE (09:22)
[2016-11-12] MEDS: CEFTRIAXONE 1 GM in DEXTROSE 5%-WATER - 50 ML IVPB SCH (09:27)
[2016-11-12] MEDS: LACTOBACILLUS ACIDOPHILUS 1 EACH TAB (FP) PO SCH (09:28)
[2016-11-12] MEDS: POTASSIUM CHLORIDE TABS 20 MEQ TABLET.ER (FP) PO SCH ×2 (09:28→22:37)
[2016-11-12] MEDS: PREGABALIN 50 MG CAPSULE PO SCH ×2 (09:28→22:37)
[2016-11-12] MEDS: RANITIDINE HCL 150 MG TABLET (FP) PO SCH ×2 (09:28→22:37)
[2016-11-12] MEDS: METOPROLOL TARTRATE 25 MG TABLET (FP) PO SCH (09:28)
[2016-11-12] MEDS: PROPYLTHIOURACIL 50 MG TABLET (UD) PO SCH (09:28)
[2016-11-12] MEDS: dilTIAZem HCL 60 MG TABLET (FP) PO SCH ×2 (09:28→16:10)
[2016-11-12] MEDS: CHOLECALCIFEROL (VITAMIN D3) 1,000 UNIT TABLET (FP) PO SCH (09:28)
[2016-11-12] MEDS: LORazepam 0.5 MG TABLET PO SCH ×2 (09:29→22:37)
[2016-11-12] MEDS: BUMETANIDE 0.5 MG TABLET PO SCH (09:31)
[2016-11-12] MEDS: DOCUSATE SODIUM 100 MG CAPSULE (FP) PO SCH ×2 (11:54→22:37)
[2016-11-12] MEDS: POLYETHYLENE GLYCOL 3350 119 GM BTL PO SCH ×2 (11:54→22:38)
[2016-11-12] MEDS: oxyCODONE HCL 5 MG TABLET PO PRN (13:55)
[2016-11-12] MEDS: ALBUTEROL SO4 0.083% IH SOL 2.5 MG/3 ML VIAL.NEB. NEB PRN ×2 (14:44→21:59)
--- NOTE | 2016-11-12 14:51 | PN ---
Progress Note, Physician Chief Complaint: Ms Sanchez says she is feeling better, but has pain in her back which is chronic. No cp, sob, n/v. - Current Medication List Current Medications: Active Medications Acetaminophen (Tylenol -) 650 mg PO Q4H PRN PRN Reason: FEVER OR PAIN Last Admin: 11/11/16 15:06 Dose: 650 mg Albuterol Sulfate (Ventolin 0.083% Nebulizer Soln -) 1 amp NEB Q6H PRN PRN Reason: SHORT OF BREATH/WHEEZING Last Admin: 11/12/16 14:44 Dose: 1 amp Atorvastatin Calcium (Lipitor -) 20 mg PO HS [facility] Last Admin: 11/11/16 21:54 Dose: 20 mg Bumetanide (Bumex -) 0.5 mg PO DAILY [facility] Last Admin: 11/12/16 09:31 Dose: 0.5 mg Cholecalciferol (Vitamin D3 -) 2,000 unit PO DAILY [facility] Last Admin: 11/12/16 09:28 Dose: 2,000 unit Diltiazem HCl (Cardizem -) 60 mg PO BID [facility] Last Admin: 11/12/16 09:28 Dose: 60 mg Docusate Sodium (Colace -) 100 mg PO BID [facility] Last Admin: 11/12/16 11:54 Dose: 100 mg Guaifenesin/Codeine Phosphate (Robitussin Ac -) 5 ml PO Q8H PRN PRN Reason: COUGH Ceftriaxone Sodium 1 gm/ (Dextrose) 50 mls @ 100 mls/hr IVPB DAILY [facility] Last Admin: 11/12/16 09:27 Dose: 100 mls/hr Ipratropium [place] (Atrovent 0.02% Nebulizer -) 1 amp NEB Q6H PRN PRN Reason: WHEEZING Last Admin: 11/11/16 06:45 Dose: 1 amp Lactobacillus Acidophilus (Bacid -) 1 tab PO DAILY [facility] Last Admin: 11/12/16 09:28 Dose: 1 tab Lorazepam (Ativan -) 0.25 mg PO Q6H PRN PRN Reason: ANXIETY Lorazepam (Ativan -) 0.25 mg PO BID [facility] Last Admin: 11/12/16 09:29 Dose: 0.25 mg Metformin HCl (Glucophage Xr -) 500 mg PO ACBK [facility] Last Admin: 11/11/16 06:46 Dose: 500 mg Metoprolol Tartrate (Lopressor -) 25 mg PO DAILY [facility] Last Admin: 11/12/16 09:28 Dose: 25 mg Montelukast Sodium (Singulair -) 10 mg PO HS [facility] Last Admin: 11/11/16 21:55 Dose: 10 mg Ondansetron HCl (Zofran Injection) 4 mg IVPB Q6H PRN PRN Reason: NAUSEA Oxycodone HCl (Roxicodone -) 5 mg PO Q4H PRN PRN Reason: PAIN Last Admin: 11/12/16 13:55 Dose: 5 mg Polyethylene Glycol (Miralax (For Daily Use) -) 17 gm PO BID [facility] Last Admin: 11/12/16 11:54 Dose: 17 gm Potassium Chloride (K-Dur -) 20 meq PO BID [facility] Last Admin: 11/12/16 09:28 Dose: 20 meq Pregabalin (Lyrica -) 50 mg PO BID [facility] Last Admin: 11/12/16 09:28 Dose: 50 mg Propylthiouracil (Ptu -) 50 mg PO DAILY [facility] Last Admin: 11/12/16 09:28 Dose: 50 mg Ranitidine HCl (Zantac -) 150 mg PO BID [facility] Last Admin: 11/12/16 09:28 Dose: 150 mg Warfarin Sodium (Coumadin -) 4 mg PO DAILY@1800 [facility] Last Admin: 11/11/16 18:33 Dose: 4 mg - Objective Vital Signs: Vital Signs Temperature 36.5 C 11/12/16 13:59 Pulse Rate 104 H 11/12/16 13:59 Respiratory Rate 20 11/12/16 13:59 Blood Pressure 100/64 11/12/16 13:59 O2 Sat by Pulse Oximetry (%) 97 11/11/16 19:55 Constitutional: Yes: Well Nourished, No Distress, Calm Cardiovascular: Yes: Regular Rate and Rhythm. No: Gallop, Murmur, Rub Respiratory: Yes: Regular, On Nasal O2, Rhonchi. No: Rales, Wheezes Gastrointestinal: Yes: Normal Bowel Sounds, Soft. No: Distention, Tenderness Extremities: Yes: WNL Edema: No Labs: CBC, BMP 11/12/16 06:00 11/12/16 06:00 INR, PTT INR 1.28 (0.82-1.09) H 11/11/16 06:00 Problem List - Problems (1) Congestive heart failure Code(s): I50.9 - HEART FAILURE, UNSPECIFIED Qualifiers: Congestive heart failure type: diastolic Congestive heart failure chronicity: chronic Qualified Code(s): I50.32 - Chronic diastolic ( congestive) heart failure (2) COPD (chronic obstructive pulmonary disease) Code(s): J44.9 - CHRONIC OBSTRUCTIVE PULMONARY DISEASE, UNSPECIFIED (3) UTI (urinary tract infection) Code(s): N39.0 - URINARY TRACT INFECTION, SITE NOT SPECIFIED Qualifiers: Urinary tract infection type: acute cystitis Hematuria presence: without hematuria Qualified Code(s): N30.00 - Acute cystitis without hematuria (4) Atrial fibrillation Code(s): I48.91 - UNSPECIFIED ATRIAL FIBRILLATION Qualifiers: Atrial fibrillation type: chronic Qualified Code(s): I48.2 - Chronic atrial fibrillation (5) Diabetes mellitus Code(s): E11.9 - TYPE 2 DIABETES MELLITUS WITHOUT COMPLICATIONS (6) Hyperlipidemia Code(s): E78.5 - HYPERLIPIDEMIA, UNSPECIFIED (7) Intractable back pain Code(s): M54.9 - DORSALGIA, UNSPECIFIED (8) Multiple myeloma Code(s): C90.00 - MULTIPLE MYELOMA NOT HAVING ACHIEVED REMISSION Qualifiers: Multiple myeloma remission status: not in remission Qualified Code(s ): C90.00 - Multiple myeloma not having achieved remission Assessment/Plan (1) Congestive heart failure Assessment/Plan: -stable -continue bumex Code(s): I50.9 - HEART FAILURE, UNSPECIFIED Qualifiers: Congestive heart failure type: diastolic Congestive heart failure chronicity: chronic Qualified Code(s): I50.32 - Chronic diastolic ( congestive) heart failure (2) COPD (chronic obstructive pulmonary disease) Assessment/Plan: -patient subjectively short of breath -continue oxygen -continue singulair and duonebs Code(s): J44.9 - CHRONIC OBSTRUCTIVE PULMONARY DISEASE, UNSPECIFIED (3) UTI (urinary tract infection) Assessment/Plan: -can stop rocephin today, s/p 3 doses Code(s): N39.0 - URINARY TRACT INFECTION, SITE NOT SPECIFIED Qualifiers: Urinary tract infection type: acute cystitis Hematuria presence: without hematuria Qualified Code(s): N30.00 - Acute cystitis without hematuria (4) Atrial fibrillation Assessment/Plan: -controlled -recheck INR -may need to increase dose today Code(s): I48.91 - UNSPECIFIED ATRIAL FIBRILLATION Qualifiers: Atrial fibrillation type: chronic Qualified Code(s): I48.2 - Chronic atrial fibrillation (5) Diabetes mellitus Assessment/Plan: -well controlled -continue metformin Code(s): E11.9 - TYPE 2 DIABETES MELLITUS WITHOUT COMPLICATIONS (6) Hyperlipidemia Assessment/Plan: -continue lipitor Code(s): E78.5 - HYPERLIPIDEMIA, UNSPECIFIED (7) Intractable back pain Assessment/Plan: -continue oxycodone Code(s): M54.9 - DORSALGIA, UNSPECIFIED (8) Multiple myeloma Assessment/Plan: -patient refuses treatment Code(s): C90.00 - MULTIPLE MYELOMA NOT HAVING ACHIEVED REMISSION Qualifiers: Multiple myeloma remission status: not in remission Qualified Code(s ): C90.00 - Multiple myeloma not having achieved remission Dispo -plan for discharge tomorrow
[2016-11-12 18:58] LABS: INR 1.22 (0.82-1.09); PROTHROMBIN TIME (PATIENT) 13.5 SEC (9.98-11.88)
[2016-11-12] MEDS: WARFARIN NA 2 MG TABLET (UD) PO SCH (19:08)
[2016-11-12] MEDS: IPRATROPIUM BR 0.02% 0.5 MG/2.5 ML VIAL.NEB. NEB PRN (21:59)
[2016-11-12] MEDS: MONTELUKAST NA 10 MG TABLET PO SCH (22:37)
[2016-11-12] MEDS: ATORVASTATIN CA 20 MG TABLET (FP) PO SCH (22:37)
[2016-11-12] MEDS: dilTIAZem HCL 30 MG TABLET (FP) PO SCH (22:44)
[2016-11-13] MEDS: dilTIAZem HCL 60 MG TABLET (FP) PO SCH ×2 (06:24→14:00)
[2016-11-13] MEDS: ALBUTEROL SO4 0.083% IH SOL 2.5 MG/3 ML VIAL.NEB. NEB PRN (06:51)
[2016-11-13] MEDS: IPRATROPIUM BR 0.02% 0.5 MG/2.5 ML VIAL.NEB. NEB PRN (06:51)
[2016-11-13 08:09] LABS: INR 1.36 (0.82-1.09); PROTHROMBIN TIME (PATIENT) 15.1 SEC (9.98-11.88)
[2016-11-13] MEDS: METOPROLOL TARTRATE 25 MG TABLET (FP) PO SCH (10:40)
[2016-11-13] MEDS: RANITIDINE HCL 150 MG TABLET (FP) PO SCH ×2 (10:40→21:07)
[2016-11-13] MEDS: LORazepam 0.5 MG TABLET PO SCH ×2 (10:40→21:07)
[2016-11-13] MEDS: DOCUSATE SODIUM 100 MG CAPSULE (FP) PO SCH ×2 (10:40→21:07)
[2016-11-13] MEDS: LACTOBACILLUS ACIDOPHILUS 1 EACH TAB (FP) PO SCH (10:40)
[2016-11-13] MEDS: CHOLECALCIFEROL (VITAMIN D3) 1,000 UNIT TABLET (FP) PO SCH (10:41)
[2016-11-13] MEDS: POTASSIUM CHLORIDE TABS 20 MEQ TABLET.ER (FP) PO SCH ×2 (10:41→21:06)
[2016-11-13] MEDS: PREGABALIN 50 MG CAPSULE PO SCH ×2 (10:41→21:07)
[2016-11-13] MEDS: POLYETHYLENE GLYCOL 3350 119 GM BTL PO SCH ×2 (10:41→21:08)
[2016-11-13] MEDS: BUMETANIDE 0.5 MG TABLET PO SCH (10:42)
[2016-11-13] MEDS: PROPYLTHIOURACIL 50 MG TABLET (UD) PO SCH (10:43)
--- NOTE | 2016-11-13 14:42 | PN ---
Progress Note, Physician - Current Medication List Current Medications: Active Medications Acetaminophen (Tylenol -) 650 mg PO Q4H PRN PRN Reason: FEVER OR PAIN Last Admin: 11/11/16 15:06 Dose: 650 mg Albuterol Sulfate (Ventolin 0.083% Nebulizer Soln -) 1 amp NEB Q6H PRN PRN Reason: SHORT OF BREATH/WHEEZING Last Admin: 11/13/16 06:51 Dose: 1 amp Atorvastatin Calcium (Lipitor -) 20 mg PO HS [facility] Last Admin: 11/12/16 22:37 Dose: 20 mg Bumetanide (Bumex -) 0.5 mg PO DAILY [facility] Last Admin: 11/13/16 10:42 Dose: 0.5 mg Cholecalciferol (Vitamin D3 -) 2,000 unit PO DAILY [facility] Last Admin: 11/13/16 10:41 Dose: 2,000 unit Diltiazem HCl (Cardizem -) 30 mg PO [facility] Last Admin: 11/12/16 22:44 Dose: 30 mg Diltiazem HCl (Cardizem -) 60 mg PO BID@0600,1400 [facility] Last Admin: 11/13/16 06:24 Dose: 60 mg Docusate Sodium (Colace -) 100 mg PO BID [facility] Last Admin: 11/13/16 10:40 Dose: 100 mg Guaifenesin/Codeine Phosphate (Robitussin Ac -) 5 ml PO Q8H PRN PRN Reason: COUGH Ipratropium [place] (Atrovent 0.02% Nebulizer -) 1 amp NEB Q6H PRN PRN Reason: WHEEZING Last Admin: 11/13/16 06:51 Dose: 1 amp Lactobacillus Acidophilus (Bacid -) 1 tab PO DAILY [facility] Last Admin: 11/13/16 10:40 Dose: 1 tab Lorazepam (Ativan -) 0.25 mg PO Q6H PRN PRN Reason: ANXIETY Lorazepam (Ativan -) 0.25 mg PO BID [facility] Last Admin: 11/13/16 10:40 Dose: 0.25 mg Metformin HCl (Glucophage Xr -) 500 mg PO ACBK [facility] Last Admin: 11/13/16 07:54 Dose: Not Given Metoprolol Tartrate (Lopressor -) 25 mg PO DAILY [facility] Last Admin: 11/13/16 10:40 Dose: 25 mg Montelukast Sodium (Singulair -) 10 mg PO HS [facility] Last Admin: 11/12/16 22:37 Dose: 10 mg Ondansetron HCl (Zofran Injection) 4 mg IVPB Q6H PRN PRN Reason: NAUSEA Oxycodone HCl (Roxicodone -) 5 mg PO Q4H PRN PRN Reason: PAIN Last Admin: 11/12/16 13:55 Dose: 5 mg Polyethylene Glycol (Miralax (For Daily Use) -) 17 gm PO BID [facility] Last Admin: 11/13/16 10:41 Dose: 17 gm Potassium Chloride (K-Dur -) 20 meq PO BID [facility] Last Admin: 11/13/16 10:41 Dose: 20 meq Pregabalin (Lyrica -) 50 mg PO BID [facility] Last Admin: 11/13/16 10:41 Dose: 50 mg Propylthiouracil (Ptu -) 50 mg PO DAILY [facility] Last Admin: 11/13/16 10:43 Dose: 50 mg Ranitidine HCl (Zantac -) 150 mg PO BID [facility] Last Admin: 11/13/16 10:40 Dose: 150 mg Warfarin Sodium (Coumadin -) 7.5 mg PO 1800 ONE Stop: 11/13/16 18:01 - Objective Vital Signs: Vital Signs Temperature 36.7 C 11/13/16 14:36 Pulse Rate 107 H 11/13/16 14:36 Respiratory Rate 20 11/13/16 14:36 Blood Pressure 125/76 11/13/16 14:36 O2 Sat by Pulse Oximetry (%) 97 11/12/16 21:00 Labs: CBC, BMP 11/12/16 06:00 11/12/16 06:00 INR, PTT INR 1.36 (0.82-1.09) H 11/13/16 06:50 Problem List - Problems (1) Congestive heart failure Code(s): I50.9 - HEART FAILURE, UNSPECIFIED Qualifiers: Congestive heart failure type: diastolic Congestive heart failure chronicity: chronic Qualified Code(s): I50.32 - Chronic diastolic ( congestive) heart failure (2) COPD (chronic obstructive pulmonary disease) Code(s): J44.9 - CHRONIC OBSTRUCTIVE PULMONARY DISEASE, UNSPECIFIED (3) UTI (urinary tract infection) Code(s): N39.0 - URINARY TRACT INFECTION, SITE NOT SPECIFIED Qualifiers: Urinary tract infection type: acute cystitis Hematuria presence: without hematuria Qualified Code(s): N30.00 - Acute cystitis without hematuria (4) Atrial fibrillation Code(s): I48.91 - UNSPECIFIED ATRIAL FIBRILLATION Qualifiers: Atrial fibrillation type: chronic Qualified Code(s): I48.2 - Chronic atrial fibrillation (5) Diabetes mellitus Code(s): E11.9 - TYPE 2 DIABETES MELLITUS WITHOUT COMPLICATIONS (6) Hyperlipidemia Code(s): E78.5 - HYPERLIPIDEMIA, UNSPECIFIED (7) Intractable back pain Code(s): M54.9 - DORSALGIA, UNSPECIFIED (8) Multiple myeloma Code(s): C90.00 - MULTIPLE MYELOMA NOT HAVING ACHIEVED REMISSION Qualifiers: Multiple myeloma remission status: not in remission Qualified Code(s ): C90.00 - Multiple myeloma not having achieved remission
[2016-11-13] MEDS: oxyCODONE HCL 5 MG TABLET PO PRN (15:21)
[2016-11-13] MEDS: ACETAMINOPHEN 325 MG TABLET (FP) PO PRN (15:22)
--- NOTE | 2016-11-13 16:25 | PN ---
Progress Note, Physician Chief Complaint: Ms Sanchez says she feels fine. Her pain is controlled. No cp, sob, n/v. - Current Medication List Current Medications: Active Medications Acetaminophen (Tylenol -) 650 mg PO Q4H PRN PRN Reason: FEVER OR PAIN Last Admin: 11/13/16 15:22 Dose: 650 mg Albuterol Sulfate (Ventolin 0.083% Nebulizer Soln -) 1 amp NEB Q6H PRN PRN Reason: SHORT OF BREATH/WHEEZING Last Admin: 11/13/16 06:51 Dose: 1 amp Atorvastatin Calcium (Lipitor -) 20 mg PO HS [facility] Last Admin: 11/12/16 22:37 Dose: 20 mg Bumetanide (Bumex -) 0.5 mg PO DAILY [facility] Last Admin: 11/13/16 10:42 Dose: 0.5 mg Cholecalciferol (Vitamin D3 -) 2,000 unit PO DAILY [facility] Last Admin: 11/13/16 10:41 Dose: 2,000 unit Diltiazem HCl (Cardizem -) 30 mg PO HS [facility] Last Admin: 11/12/16 22:44 Dose: 30 mg Diltiazem HCl (Cardizem -) 60 mg PO BID@0600,1400 [facility] Last Admin: 11/13/16 14:00 Dose: 60 mg Docusate Sodium (Colace -) 100 mg PO BID [facility] Last Admin: 11/13/16 10:40 Dose: 100 mg Guaifenesin/Codeine Phosphate (Robitussin Ac -) 5 ml PO Q8H PRN PRN Reason: COUGH Ipratropium [place] (Atrovent 0.02% Nebulizer -) 1 amp NEB Q6H PRN PRN Reason: WHEEZING Last Admin: 11/13/16 06:51 Dose: 1 amp Lactobacillus Acidophilus (Bacid -) 1 tab PO DAILY [facility] Last Admin: 11/13/16 10:40 Dose: 1 tab Lorazepam (Ativan -) 0.25 mg PO Q6H PRN PRN Reason: ANXIETY Lorazepam (Ativan -) 0.25 mg PO BID [facility] Last Admin: 11/13/16 10:40 Dose: 0.25 mg Metformin HCl (Glucophage Xr -) 500 mg PO ACBK [facility] Last Admin: 11/13/16 07:54 Dose: Not Given Metoprolol Tartrate (Lopressor -) 25 mg PO DAILY [facility] Last Admin: 11/13/16 10:40 Dose: 25 mg Montelukast Sodium (Singulair -) 10 mg PO HS [facility] Last Admin: 11/12/16 22:37 Dose: 10 mg Ondansetron HCl (Zofran Injection) 4 mg IVPB Q6H PRN PRN Reason: NAUSEA Oxycodone HCl (Roxicodone -) 5 mg PO Q4H PRN PRN Reason: PAIN Last Admin: 11/13/16 15:21 Dose: 5 mg Polyethylene Glycol (Miralax (For Daily Use) -) 17 gm PO BID [facility] Last Admin: 11/13/16 10:41 Dose: 17 gm Potassium Chloride (K-Dur -) 20 meq PO BID [facility] Last Admin: 11/13/16 10:41 Dose: 20 meq Pregabalin (Lyrica -) 50 mg PO BID [facility] Last Admin: 11/13/16 10:41 Dose: 50 mg Propylthiouracil (Ptu -) 50 mg PO DAILY [facility] Last Admin: 11/13/16 10:43 Dose: 50 mg Ranitidine HCl (Zantac -) 150 mg PO BID [facility] Last Admin: 11/13/16 10:40 Dose: 150 mg Warfarin Sodium (Coumadin -) 7.5 mg PO 1800 ONE Stop: 11/13/16 18:01 - Objective Vital Signs: Vital Signs Temperature 36.7 C 11/13/16 14:36 Pulse Rate 107 H 11/13/16 14:36 Respiratory Rate 20 11/13/16 14:36 Blood Pressure 125/76 11/13/16 14:36 O2 Sat by Pulse Oximetry (%) 98 11/13/16 09:00 Constitutional: Yes: Well Nourished, No Distress, Calm Cardiovascular: Yes: Regular Rate and Rhythm. No: Gallop, Murmur, Rub Respiratory: Yes: Regular, Diminished. No: Rales, Rhonchi, Wheezes Gastrointestinal: Yes: Normal Bowel Sounds, Soft. No: Distention, Tenderness Extremities: Yes: WNL Edema: No Labs: CBC, BMP 11/12/16 06:00 11/12/16 06:00 INR, PTT INR 1.36 (0.82-1.09) H 11/13/16 06:50 Problem List - Problems (1) Congestive heart failure Code(s): I50.9 - HEART FAILURE, UNSPECIFIED Qualifiers: Congestive heart failure type: diastolic Congestive heart failure chronicity: chronic Qualified Code(s): I50.32 - Chronic diastolic ( congestive) heart failure (2) COPD (chronic obstructive pulmonary disease) Code(s): J44.9 - CHRONIC OBSTRUCTIVE PULMONARY DISEASE, UNSPECIFIED (3) UTI (urinary tract infection) Code(s): N39.0 - URINARY TRACT INFECTION, SITE NOT SPECIFIED Qualifiers: Urinary tract infection type: acute cystitis Hematuria presence: without hematuria Qualified Code(s): N30.00 - Acute cystitis without hematuria (4) Atrial fibrillation Code(s): I48.91 - UNSPECIFIED ATRIAL FIBRILLATION Qualifiers: Atrial fibrillation type: chronic Qualified Code(s): I48.2 - Chronic atrial fibrillation (5) Diabetes mellitus Code(s): E11.9 - TYPE 2 DIABETES MELLITUS WITHOUT COMPLICATIONS (6) Hyperlipidemia Code(s): E78.5 - HYPERLIPIDEMIA, UNSPECIFIED (7) Intractable back pain Code(s): M54.9 - DORSALGIA, UNSPECIFIED (8) Multiple myeloma Code(s): C90.00 - MULTIPLE MYELOMA NOT HAVING ACHIEVED REMISSION Qualifiers: Multiple myeloma remission status: not in remission Qualified Code(s ): C90.00 - Multiple myeloma not having achieved remission Assessment/Plan (1) Congestive heart failure Assessment/Plan: -stable -continue bumex Code(s): I50.9 - HEART FAILURE, UNSPECIFIED Qualifiers: Congestive heart failure type: diastolic Congestive heart failure chronicity: chronic Qualified Code(s): I50.32 - Chronic diastolic ( congestive) heart failure (2) COPD (chronic obstructive pulmonary disease) Assessment/Plan: -no longer short of breath -continue oxygen -continue singulair and duonebs Code(s): J44.9 - CHRONIC OBSTRUCTIVE PULMONARY DISEASE, UNSPECIFIED (3) UTI (urinary tract infection) Assessment/Plan: -can stop rocephin today, s/p 3 doses Code(s): N39.0 - URINARY TRACT INFECTION, SITE NOT SPECIFIED Qualifiers: Urinary tract infection type: acute cystitis Hematuria presence: without hematuria Qualified Code(s): N30.00 - Acute cystitis without hematuria (4) Atrial fibrillation Assessment/Plan: -controlled -INR still subtherapeutic -increase coumadin and recheck in am Code(s): I48.91 - UNSPECIFIED ATRIAL FIBRILLATION Qualifiers: Atrial fibrillation type: chronic Qualified Code(s): I48.2 - Chronic atrial fibrillation (5) Diabetes mellitus Assessment/Plan: -well controlled -continue metformin Code(s): E11.9 - TYPE 2 DIABETES MELLITUS WITHOUT COMPLICATIONS (6) Hyperlipidemia Assessment/Plan: -continue lipitor Code(s): E78.5 - HYPERLIPIDEMIA, UNSPECIFIED (7) Intractable back pain Assessment/Plan: -continue oxycodone Code(s): M54.9 - DORSALGIA, UNSPECIFIED (8) Multiple myeloma Assessment/Plan: -patient refuses treatment Code(s): C90.00 - MULTIPLE MYELOMA NOT HAVING ACHIEVED REMISSION Qualifiers: Multiple myeloma remission status: not in remission Qualified Code(s ): C90.00 - Multiple myeloma not having achieved remission (9) Decubitus ulcers -family concerned about decubitus ulcers -present on admission -consult wound care
[2016-11-13] MEDS ORDERED: WARFARIN NA 7.5 MG TABLET (FP) PO ONE (18:00)
[2016-11-13] MEDS: MONTELUKAST NA 10 MG TABLET PO SCH (21:07)
[2016-11-13] MEDS: ATORVASTATIN CA 20 MG TABLET (FP) PO SCH (21:07)
[2016-11-13] MEDS: dilTIAZem HCL 30 MG TABLET (FP) PO SCH (21:08)
[2016-11-14] MEDS: dilTIAZem HCL 60 MG TABLET (FP) PO SCH ×2 (06:00→14:00)
[2016-11-14 07:26] LABS: BASOPHIL 0.7 % (0-2.0); EOSINOPHIL 2.4 % (0-4.5); MCH 29.3 pg (25.7-33.7); MCHC 32.1 g/dl (32.0-36.0); MEAN CELL VOLUME 91.4 fl (80-96); MEAN PLT VOLUME 8.3 fl (7.5-11.1); NEUTROPHILS 76.4 % (42.8-82.8); PLATELET COUNT 165 K/MM3 (134-434); RDW 17.4 % (11.6-15.6); WHITE BLOOD COUNT 7.5 K/mm3 (4.0-10.0)
[2016-11-14 07:36] LABS: INR 1.66 (0.82-1.09); PROTHROMBIN TIME (PATIENT) 18.4 SEC (9.98-11.88)
[2016-11-14 08:08] LABS: ANION GAP 8 (8-16); CALCIUM 8.5 mg/dL (8.5-10.1); CO2 29 mmol/L (21-32); GLUCOSE,RANDOM 88 mg/dL (74-106)
[2016-11-14 08:09] LABS: CREATININE 0.7 mg/dL (0.55-1.02); PHOSPHOROUS 3.4 mg/dL (2.5-4.9)
[2016-11-14 08:11] LABS: MAGNESIUM 1.9 mg/dL (1.8-2.4)
[2016-11-14 09:08] VITALS: TEMP 98
--- NOTE | 2016-11-14 10:08 | CONSULT ---
Consult - Past Medical History Cardio/Vascular: Yes: AFIB, HTN, Hyperlipdemia Pulmonary: Yes: COPD Renal/: Yes: UTI (recent Hx of ESBL UTI) ...: No Endocrine: Yes: Diabetes Mellitus - Past Surgical History Past Surgical History: Yes: Joint Replacement - Alcohol/Substance Use Hx Alcohol Use: No History of Substance Use: reports: None - Smoking History Smoking history: Never smoked Have you smoked in the past 12 months: No Aproximately how many cigarettes per day: 0 If you are a former smoker, when did you quit?: 1989 - Social History ADL: Family Assistance Occupation: Retired History of Recent Travel: No Home Medications - Allergies Allergies/Adverse Reactions: Allergies Allergy/AdvReac Type Severity Reaction Status Date / Time Iodinated Contrast- Oral and Allergy Verified 11/10/16 15:40 IV Dye [IV Dye, Iodine Containing Contrast ] Sulfa (Sulfonamide Allergy Verified 11/10/16 15:40 Antibiotics) - Home Medications Home Medications: Ambulatory Orders Atorvastatin Ca [Lipitor] 20 mg PO HS 08/14/16 Diltiazem [Cardizem -] 60 mg PO BID 08/14/16 Ergocalciferol (Vitamin D2) [Vitamin D2] 2,000 unit PO DAILY 08/14/16 Metformin HCl [Metformin HCl ER] 500 mg PO DAILY 08/14/16 Metoprolol Tartrate [Lopressor -] 25 mg PO DAILY 08/14/16 Montelukast Na [Singulair -] 10 mg PO HS 08/14/16 Pregabalin [Lyrica -] 50 mg PO BID 08/14/16 Propylthiouracil 50 mg PO DAILY 08/14/16 Ranitidine [Zantac -] 150 mg PO BID 08/14/16 Albuterol 0.083% Nebulizer [place] [Ventolin 0.083% Nebulizer Soln -] 1 amp NEB Q6H PRN #30 amp 08/26/16 Ipratropium 0.02% Nebulizer [Atrovent 0.02% Nebulizer -] 1 amp NEB Q6H PRN #30 amp 08/26/16 Oxycodone HCl [Roxicodone -] 2.5 mg PO Q4H PRN #60 tablet MDD 30mg 08/26/16 Acetaminophen [Tylenol] 650 mg PO BID 11/01/16 Lorazepam 0.25 mg PO BID 11/01/16 Bumetanide [Bumex -] 0.5 mg PO MOWEFR #30 tablet 11/03/16 Guaifenesin AC [Robitussin AC -] 5 ml PO TID PRN #1 bot MDD 20mg 11/03/16 Lorazepam [Ativan] 0.25 mg PO Q6H PRN #30 tablet MDD 3mg 11/03/16 Potassium Chloride [K-Dur -] 20 meq PO BID #60 tab.ec 11/03/16 Nitrofurantoin Monohyd/M-Cryst [Macrobid -] 100 mg PO BID #14 capsule 11/09/16 Warfarin Na [Coumadin -] 4 mg PO DAILY@1800 11/10/16 Family Disease History - Family Disease History Family Disease History: CA: Father, Mother, Sister, Other: Son (2 healthy), Daughter (4 healthy) Physical Exam Vital Signs: Vital Signs Temperature 98.0 F 11/14/16 09:07 Pulse Rate 102 H 11/14/16 09:07 Respiratory Rate 20 11/14/16 09:07 Blood Pressure 123/70 11/14/16 09:07 O2 Sat by Pulse Oximetry (%) 98 11/13/16 20:01 Labs: CBC, BMP 11/14/16 06:00 11/14/16 06:00 Assessment/Plan Vascular Surgery The patient is a 86 year old female, with a significant past medical history of multiple myeloma, anemia, afib, CHF, and DM , who presents to the emergency department sent by PCP with shortness of breath. As per the aide, patient has associated symptoms of bilateral ankle edema. Patient states that her SOB is exacerbated when supine. She also reports decreased urinary output. Patient presented to the ER yesterday for diffuse pain and SOB. Patients aide also reports that she has a previous skin tear that is currently being cleaned and dressed by her visiting nurse. She denies recent chest pain. She denies coughing. She denies recent fevers, chills, headache or dizziness. She denies recent nausea, vomit, diarrhea or constipation. She denies recent dysuria, urgency or hematuria. Social history: Nonsmoker. Denies EtOH use and recreational drug use. Primary Care Physician: Dr. Dallas Avalos PE Head - NC/AT Lungs - CTA Heart - RRR abd - soft,nt,nd Ext - warm, pink Sacrum -- Stage 2 Clean, pink. Some slough in center A/P Stage 2 sacral ulcer 1. santyl daily with cindy 2. offload Cedrick Cr DO
[2016-11-14] MEDS ORDERED: COLLAGENASE CLOSTRIDIUM HIST. 30 GRAMS TUBE TP SCH (10:15)
[2016-11-14] MEDS: CHOLECALCIFEROL (VITAMIN D3) 1,000 UNIT TABLET (FP) PO SCH (11:21)
[2016-11-14] MEDS: LACTOBACILLUS ACIDOPHILUS 1 EACH TAB (FP) PO SCH (11:21)
[2016-11-14] MEDS: RANITIDINE HCL 150 MG TABLET (FP) PO SCH (11:21)
[2016-11-14] MEDS: LORazepam 0.5 MG TABLET PO SCH (11:21)
[2016-11-14] MEDS: PREGABALIN 50 MG CAPSULE PO SCH (11:21)
[2016-11-14] MEDS: METOPROLOL TARTRATE 25 MG TABLET (FP) PO SCH (11:21)
[2016-11-14] MEDS: POTASSIUM CHLORIDE TABS 20 MEQ TABLET.ER (FP) PO SCH (11:21)
[2016-11-14] MEDS: DOCUSATE SODIUM 100 MG CAPSULE (FP) PO SCH (11:21)
[2016-11-14] MEDS: POLYETHYLENE GLYCOL 3350 119 GM BTL PO SCH (11:23)
[2016-11-14] MEDS: BUMETANIDE 0.5 MG TABLET PO SCH (11:23)
[2016-11-14] MEDS: PROPYLTHIOURACIL 50 MG TABLET (UD) PO SCH (11:24)
--- NOTE | 2016-11-14 11:44 | DS ---
Physical Examination Vital Signs: Vital Signs Temperature 36.7 C 11/14/16 09:07 Pulse Rate 102 H 11/14/16 09:07 Respiratory Rate 20 11/14/16 09:07 Blood Pressure 123/70 11/14/16 09:07 O2 Sat by Pulse Oximetry (%) 98 11/13/16 20:01 Constitutional: Yes: Well Nourished, No Distress, Calm Cardiovascular: Yes: Regular Rate and Rhythm. No: Gallop, Murmur, Rub Respiratory: Yes: Regular, CTA Bilaterally. No: Rales, Rhonchi, Wheezes Gastrointestinal: Yes: Normal Bowel Sounds, Soft. No: Distention, Tenderness Extremities: Yes: WNL Edema: No Labs: CBC, BMP 11/14/16 06:00 11/14/16 06:00 Discharge Summary Reason For Visit: ACUTE ON CHRONIC CHF Current Active Problems CHF exacerbation (Acute) Hospital Course: (1) Congestive heart failure Code(s): I50.9 - HEART FAILURE, UNSPECIFIED Qualifiers: Congestive heart failure type: diastolic Congestive heart failure chronicity: chronic Qualified Code(s): I50.32 - Chronic diastolic ( congestive) heart failure (2) COPD (chronic obstructive pulmonary disease) Code(s): J44.9 - CHRONIC OBSTRUCTIVE PULMONARY DISEASE, UNSPECIFIED (3) UTI (urinary tract infection) Code(s): N39.0 - URINARY TRACT INFECTION, SITE NOT SPECIFIED Qualifiers: Urinary tract infection type: acute cystitis Hematuria presence: without hematuria Qualified Code(s): N30.00 - Acute cystitis without hematuria (4) Atrial fibrillation Code(s): I48.91 - UNSPECIFIED ATRIAL FIBRILLATION Qualifiers: Atrial fibrillation type: chronic Qualified Code(s): I48.2 - Chronic atrial fibrillation (5) Diabetes mellitus Code(s): E11.9 - TYPE 2 DIABETES MELLITUS WITHOUT COMPLICATIONS (6) Hyperlipidemia Code(s): E78.5 - HYPERLIPIDEMIA, UNSPECIFIED (7) Intractable back pain Code(s): M54.9 - DORSALGIA, UNSPECIFIED (8) Multiple myeloma Code(s): C90.00 - MULTIPLE MYELOMA NOT HAVING ACHIEVED REMISSION Qualifiers: Multiple myeloma remission status: not in remission Qualified Code(s ): C90.00 - Multiple myeloma not having achieved remission (9) Decubitus ulcers Ms Sanchez is a pleasant 86 year old female who came in with concern for CHF exacerbation. She was admitted to the hospital and seen by cardiology. After evaluation she was not fluid overloaded and her shortness of breath was in response to pain. Her oxycodone was increased and this helped. She also was found to have a UTI and was treated with rocephin. Family commented that patient has decubitus ulcers that developed while home, wound care consulted and recommended santyl. She is currently stable for discharge 32 minutes spent in preparation of this discharge Condition: Stable - Instructions Diet, Activity, Other Instructions: resume previous diet and activity Referrals: Dallas Avalos MD [Primary Care Provider] - Disposition: VNS/HOME HEALTH CARE - Home Medications Comprehensive Discharge Medication List: Ambulatory Orders Atorvastatin Ca [Lipitor] 20 mg PO HS 08/14/16 Diltiazem [Cardizem -] 60 mg PO BID 08/14/16 Ergocalciferol (Vitamin D2) [Vitamin D2] 2,000 unit PO DAILY 08/14/16 Metformin HCl [Metformin HCl ER] 500 mg PO DAILY 08/14/16 Metoprolol Tartrate [Lopressor -] 25 mg PO DAILY 08/14/16 Montelukast Na [Singulair -] 10 mg PO HS 08/14/16 Pregabalin [Lyrica -] 50 mg PO BID 08/14/16 Propylthiouracil 50 mg PO DAILY 08/14/16 Ranitidine [Zantac -] 150 mg PO BID 08/14/16 Albuterol 0.083% Nebulizer [place] [Ventolin 0.083% Nebulizer Soln -] 1 amp NEB Q6H PRN #30 amp 08/26/16 Ipratropium 0.02% Nebulizer [Atrovent 0.02% Nebulizer -] 1 amp NEB Q6H PRN #30 amp 08/26/16 Oxycodone HCl [Roxicodone -] 2.5 mg PO Q4H PRN #60 tablet MDD 30mg 08/26/16 Acetaminophen [Tylenol] 650 mg PO BID 11/01/16 Lorazepam 0.25 mg PO BID 11/01/16 Guaifenesin AC [Robitussin AC -] 5 ml PO TID PRN #1 bot MDD 20mg 11/03/16 Lorazepam [Ativan] 0.25 mg PO Q6H PRN #30 tablet MDD 3mg 11/03/16 Potassium Chloride [K-Dur -] 20 meq PO BID #60 tab.ec 11/03/16 Warfarin Na [Coumadin -] 4 mg PO DAILY@1800 11/10/16 Bumetanide [Bumex -] 0.5 mg PO DAILY tablet 11/14/16 Collagenase Clostridium Hist. [Santyl -] 1 applic TP DAILY #1 tube 11/14/16 Diltiazem [Cardizem -] 30 mg PO HS #30 tab 11/14/16 Docusate Sodium [Colace -] 100 mg PO BID #60 cap 11/14/16 Polyethylene Glycol 3350 [Miralax 119 gm Btl -] 17 gm PO BID #1 bottle 11/14/16
[2016-11-14 13:28] VITALS: BP 148/72; PULSE 113
== END 2016-11-14 17:39 | DRG 292 ==
LOC: JER 15:20 → JERBED 23:18 → UNDOADMIN 23:46 → J7W 11-11 01:02
PROVIDERS: ADMIT Internal Medicine; ATTEND Internal Medicine
DX: I11.0 Hypertensive heart disease with heart failure (principal); C90.00 Multiple myeloma not having achieved remission; N39.0 Urinary tract infection, site not specified; J98.11 Atelectasis; I50.33 Acute on chronic diastolic (congestive) heart failure; D64.9 Anemia, unspecified; J44.9 Chronic obstructive pulmonary disease, unspecified; I48.2 Chronic atrial fibrillation; I34.0 Nonrheumatic mitral (valve) insufficiency; E78.5 Hyperlipidemia, unspecified; M54.9 Dorsalgia, unspecified; L89.152 Pressure ulcer of sacral region, stage 2; Z87.891 Personal history of nicotine dependence; K44.9 Diaphragmatic hernia without obstruction or gangrene; E05.80 Other thyrotoxicosis without thyrotoxic crisis or storm
CPT/HCPCS: 36415; 71010-TC; 71250-TC; 80048; 80053; 81003; 81015; 83605; 83735; 83880; 84100; 84484; 85025; 85027; 85610; 93005; 93010; 94640; 96365; 96375; 97116-GP; 97162-GP; 99282-25; 99284-25

== ENCOUNTER 2017-03-29 14:14 | Inpatient (IN) | payer OTHER ==
--- NOTE | 2017-03-29 14:45 | PDOC ---
History of Present Illness - General Chief Complaint: Cold Symptoms Stated Complaint: COUGH/SOB/BACK PAIN Time Seen by Provider: 03/29/17 14:44 - History of Present Illness Initial Comments: 03/29/17 14:48 Ms. Sanchez is an 86 yo female w/ pmh of multiple myeloma, anemia requiring transfusion, afib, CHF, and DM who presents complaining of a 1 week history of cough with midline abdominal pain. She reports that the pain comes and goes and that she sometimes has left and right sided lower back pain as well. The patient denies chest pain, shortness of breath, headache and dizziness. Denies fever, chills, nausea, vomit, diarrhea and constipation. Denies dysuria, frequency, urgency and hematuria. Allergies: Iodine contrast, sulfa drugs Past History - Past Medical History Allergies/Adverse Reactions: Allergies Allergy/AdvReac Type Severity Reaction Status Date / Time Iodinated Contrast- Oral and Allergy Verified 03/29/17 14:36 IV Dye [IV Dye, Iodine Containing Contrast ] Sulfa (Sulfonamide Allergy Verified 03/29/17 14:36 Antibiotics) Home Medications: Ambulatory Orders Atorvastatin Ca [Lipitor] 20 mg PO HS 08/14/16 Diltiazem [Cardizem -] 60 mg PO BID 08/14/16 Ergocalciferol (Vitamin D2) [Vitamin D2] 2,000 unit PO DAILY 08/14/16 Metformin HCl [Metformin HCl ER] 500 mg PO BID 08/14/16 Metoprolol Tartrate [Lopressor -] 25 mg PO DAILY 08/14/16 Montelukast Na [Singulair -] 10 mg PO HS 08/14/16 Pregabalin [Lyrica -] 50 mg PO BID 08/14/16 Propylthiouracil 50 mg PO DAILY 08/14/16 Albuterol 0.083% Nebulizer Juani [Ventolin 0.083% Nebulizer Soln -] 1 amp NEB Q6H PRN #30 amp 08/26/16 Ipratropium 0.02% Nebulizer [Atrovent 0.02% Nebulizer -] 1 amp NEB Q6H PRN #30 amp 08/26/16 Acetaminophen [Tylenol] 650 mg PO BID PRN 11/01/16 Lorazepam 0.25 mg PO BID 11/01/16 Potassium Chloride [K-Dur -] 20 meq PO BID #60 tab.ec 08/14/17 Warfarin Na [Coumadin -] 3 mg PO DAILY@1800 11/10/16 Docusate Sodium [Colace -] 100 mg PO BID #60 cap 11/14/16 Polyethylene Glycol 3350 [Miralax 119 gm Btl -] 17 gm PO BID #1 bottle 11/14/16 Oxycodone HCl 5 mg PO PRN 03/31/17 Anemia: Yes Asthma: No Cancer: Yes (W/U in progress for BRAIN TUMOR) Cardiac Disorders: Yes (afib) CVA: No COPD: Yes CHF: Yes (A-FIB) Dementia: No Diabetes: Yes (NIDDM) GI Disorders: No Disorders: Yes (UTI) HTN: Yes Hypercholesterolemia: Yes Liver Disease: No Seizures: No Thyroid Disease: No - Surgical History Abdominal Surgery: No Appendectomy: No Cardiac Surgery: No Cholecystectomy: No Lung Surgery: No Neurologic Surgery: No Orthopedic Surgery: No - Immunization History Immunization Up to Date: Yes - Suicide/Smoking/Psychosocial Hx Smoking Status: Yes Smoking History: Never smoked Have you smoked in the past 12 months: No Number of Cigarettes Smoked Daily: 0 If you are a former smoker, when did you quit?: 1989 Hx Alcohol Use: No Drug/Substance Use Hx: No Substance Use Type: None Hx Substance Use Treatment: No Review of Systems - Review of Systems Comments:: 03/31/17 17:26 As above. *Physical Exam - Vital Signs Last Vital Signs Temp Pulse Resp BP Pulse Ox 97.9 F 102 H 22 124/89 100 03/29/17 14:36 03/29/17 14:36 03/29/17 14:36 03/29/17 14:36 03/29/17 14:36 - Physical Exam Comments: 03/31/17 17:26 GENERAL: Awake, alert, and fully oriented, in no acute distress HEAD: No signs of trauma, normocephalic, atraumatic EYES: PERRLA, EOMI, sclera anicteric, conjunctiva clear ENT: Auricles normal inspection, hearing grossly normal, nares patent, oropharynx clear without exudates. Moist mucosa NECK: Normal ROM, supple, no lymphadenopathy, JVD, or masses LUNGS: No distress, speaks full sentences, clear to auscultation bilaterally HEART: Regular rate and rhythm, normal S1 and S2, no murmurs, rubs or gallops, peripheral pulses normal and equal bilaterally. ABDOMEN: +Significant midline tenderness to palpation. Soft, normoactive bowel sounds. No guarding, no rebound. No masses EXTREMITIES: Normal inspection, Normal range of motion, no edema. No clubbing or cyanosis. NEUROLOGICAL: Cranial nerves II through XII grossly intact. Normal speech, no focal sensorimotor deficits SKIN: Warm, Dry, normal turgor, no rashes or lesions noted. ED Treatment Course - LABORATORY CBC & Chemistry Diagram: 03/31/17 06:00 03/31/17 06:00 Medical Decision Making - Medical Decision Making 03/29/17 18:10 Ms. Sanchez is an 86 yo female w/ pmh of multiple myeloma, anemia requiring transfusion, afib, CHF, and DM presenting with upper abdominal / lower chest pain as described. Chest/Abdominal/Pelvis CT ordered with contrast but IV contrast unavailable throughout hospital. Dry chest/abdominal/pelvis ordered in lieu of this. 03/29/17 18:58 Patient signed out to Dr. Salcido for further care. *DC/Admit/Observation/Transfer Diagnosis at time of Disposition: Vertebral fracture Qualifiers: Encounter type: initial encounter Fracture of vertebra location: lumbar Lumbar vertebra fracture level: unspecified lumbar vertebra Fracture type: closed Fracture morphology: other fracture Qualified Code(s): S32.008A - Other fracture of unspecified lumbar vertebra, initial encounter for closed fracture - Discharge Dispostion Condition at time of disposition: Stable - Referrals - Patient Instructions - Post Discharge Activity
[2017-03-29 14:52] VITALS: BMI 23.8
[2017-03-29 15:46] LABS: BASO % 0.8 % (0-2.0); EOS % 1.4 % (0-4.5); HEMATOCRIT 29.7 % (32.4-45.2); HEMOGLOBIN 9.5 GM/dL (10.7-15.3); LYMPH % 24.3 % (8-40); MCH 28.2 pg (25.7-33.7); MEAN CELL VOLUME 88.2 fl (80-96); MEAN PLT VOLUME 8.5 fl (7.5-11.1); MONO % 9.9 % (3.8-10.2); NEUT % 63.6 % (42.8-82.8); PLATELET COUNT 264 K/MM3 (134-434); RBC 3.37 M/mm3 (3.60-5.2); RDW 19.9 % (11.6-15.6); WHITE BLOOD COUNT 7.5 K/mm3 (4.0-10.0)
[2017-03-29 16:24] LABS: INR 1.97 (0.82-1.09); PROTHROMBIN TIME (PATIENT) 22.3 SEC (9.98-11.88)
[2017-03-29 16:27] LABS: ACTIVATED PTT 34.4 SECONDS (26.9-34.4)
[2017-03-29 17:24] LABS: ALBUMIN 2.8 g/dl (3.4-5.0); ANION GAP 8 (8-16); BLOOD UREA NITROGEN 9 mg/dL (7-18); CHLORIDE 104 mmol/L (98-107); CO2 26 mmol/L (21-32); GLUCOSE,RANDOM 78 mg/dL (74-106); SODIUM 138 mmol/L (136-145)
[2017-03-29 17:25] LABS: POTASSIUM 5.3 mmol/L (3.5-5.1)
[2017-03-29 17:28] LABS: BILIRUBIN,TOTAL 0.5 mg/dL (0.2-1.0); CREATININE 0.9 mg/dL (0.55-1.02); SGOT/AST 40 U/L (15-37); SGPT/ALT 17 U/L (12-78)
[2017-03-29 17:29] LABS: ALK PHOS 65 U/L (45-117)
--- NOTE | 2017-03-29 17:31 | PDOC ---
Attending Attestation - Resident Resident Name: Richard De La O - ED Attending Attestation I have performed the following: I have examined & evaluated the patient, The case was reviewed & discussed with the resident, I agree w/resident's findings & plan, Exceptions are as noted - HPI HPI: 03/29/17 17:26 "The patient is an 86 year old female with past medical history of multiple myeloma, Afib, CHF, and diabetes who presents to the ED with complaints of cough , SOB, chest pain, and abdominal pain. Pt states that her symptoms have progressively worsened over the past week. She states the pain is intermittent and radiates from her chest down to her epigastric area. She endorses nausea without vomiting. Denies diarrhea/constipation. Pt also endorses SOB that is worse with any sort of exertion. Additionally, she complains of lower back pain. She denies any recent illness or fevers. " - Physicial Exam PE: 03/29/17 17:35 "GENERAL: Awake, alert, and fully oriented, in mild respiratory distress HEAD: No signs of trauma EYES: PERRLA, EOMI, sclera anicteric, conjunctiva clear ENT: Auricles normal inspection, hearing grossly normal, nares patent, oropharynx clear without exudates. Moist mucosa NECK: Nontender, no stepoffs, Normal ROM, supple, no lymphadenopathy, JVD, or masses LUNGS: Breath sounds equal, clear to auscultation bilaterally. No wheezes, and no crackles HEART: Regular rate and rhythm, normal S1 and S2, no murmurs, rubs or gallops ABDOMEN: +epigastric TTP, normoactive bowel sounds. No guarding, no rebound. No masses EXTREMITIES: Normal range of motion, no edema. No clubbing or cyanosis. No cords, erythema, or tenderness NEUROLOGICAL: Cranial nerves II through XII intact. 5/5 strength and sensation in all extremities, Normal speech, normal gait SKIN: Warm, Dry, normal turgor, no rashes or lesions noted. " - Medical Decision Making 03/29/17 17:37 86 F with SOB, chest pain, abdominal pain. Concerning for PE as pt is tachycardic and tachypneic. Also consider intraabdominal process, as pt has epigastric tenderness. - Labs, trop - CTA chest, CT abd/pelvis 03/29/17 18:10 Pt initially ordered for CTA of chest and CTAP with IV contrast. However, radiology dept is out of IV contrast syringes and pt is unable to receive IV contrast at this time. Will change CT chest and CTAP to non-contrast. D-dimer sent. If positive, will need V/Q scan. 03/29/17 19:05 Pt signed out to oncoming attending at 7pm, pending CTs and admission to hospital for SOB. Case discussed in detail with oncoming Emergency Physician including history, physical exam and ancillary studies. Oncoming Emergency Physician has assumed care for the patient and will complete the evaluation and treatment. Patient is aware of the plan.
[2017-03-29 17:36] LABS: TOT PROT 11.1 g/dl (6.4-8.2)
[2017-03-29] MEDS ORDERED: ACETAMINOPHEN 1000 MG/100 ML VIAL (NON FORMULARY) IVPB ONE (17:39)
[2017-03-29] MEDS ORDERED: FAMOTIDINE IV 20 MG/12 ML VIAL IVPUSH ONE (17:45)
[2017-03-29] MEDS ORDERED: SODIUM CHLORIDE 500 ML IV STA (17:51)
[2017-03-29] MEDS ORDERED: ACETAMINOPHEN INJECTION 100 ML IVPB ONE (18:22)
[2017-03-29] MEDS ORDERED: FAMOTIDINE 20 MG/50 ML IVPB 20 MG/50 ML MG IVPB ONE (18:22)
--- NOTE | 2017-03-29 19:15 | PDOC ---
*Physical Exam - Vital Signs Last Vital Signs Temp Pulse Resp BP Pulse Ox 97.9 F 102 H 18 126/76 100 03/29/17 14:36 03/29/17 18:39 03/29/17 18:39 03/29/17 18:39 03/29/17 18:39 ED Treatment Course - LABORATORY CBC & Chemistry Diagram: 03/29/17 15:14 03/29/17 15:14 - ADDITIONAL ORDERS Additional order review: Laboratory Results 03/29/17 03/29/17 03/29/17 15:14 15:14 15:14 PT with INR 22.30 H INR 1.97 H PTT (Actin FS) 34.4 D Sodium Potassium Chloride Carbon Dioxide Anion Gap BUN Creatinine Creat Clearance w eGFR Random Glucose Lactic Acid Calcium Total Bilirubin AST ALT Alkaline Phosphatase Creatine Kinase Troponin I Total Protein Albumin Lipase 244 Blood Type Cancelled Antibody Screen Cancelled 03/29/17 03/29/17 15:14 15:14 PT with INR INR PTT (Actin FS) Sodium 138 Potassium 5.3 H Chloride 104 Carbon Dioxide 26 Anion Gap 8 BUN 9 Creatinine 0.9 D Creat Clearance w eGFR 59.09 Random Glucose 78 Lactic Acid 3.0 H* Calcium 9.0 Total Bilirubin 0.5 AST 40 H D ALT 17 D Alkaline Phosphatase 65 D Creatine Kinase 86 Troponin I < 0.02 Total Protein 11.1 H D Albumin 2.8 L Lipase Blood Type Antibody Screen 03/29/17 15:14 RBC 3.37 L MCV 88.2 MCHC 32.0 RDW 19.9 H D MPV 8.5 Neutrophils % 63.6 Lymphocytes % 24.3 D Monocytes % 9.9 Eosinophils % 1.4 Basophils % 0.8 - Medications Given in the ED: ED Medications Discontinued Medications Generic Name Dose Route Start Last Admin Trade Name Freq PRN Reason Stop Dose Admin Acetaminophen 1,000 mg 03/29/17 17:39 03/29/17 18:30 Ofirmev Injection - IVPB 03/29/17 17:40 1,000 mg ONCE ONE Administration Famotidine 20 mg in 12 mls @ 144 mls/hr 03/29/17 17:45 03/29/17 18:30 Pepcid 20 Mg/12 Ml Push IVPUSH 03/29/17 17:49 144 mls/hr ONCE ONE Administration Sodium Chloride 500 mls @ 1,000 mls/hr 03/29/17 17:51 03/29/17 18:20 Normal Saline - IV 03/29/17 18:20 1,000 mls/hr ASDIR STA Administration Medical Decision Making - Medical Decision Making 03/29/17 19:14 The patient is an 86F with a PMH of multiple myeloma, anemia requiring transfusion, afib (on coumadin), CHF, and DM who presnts to the ED with cough, SOB, and abdominal pain. Pending imaging (CTAP, chest CT). Will evaluate. Dispo: admission. 03/29/17 23:32 Will admit pt to med-surg bed under Dr. Dillard. CT read as multiple vertebral fractures of unknown age, possible appendicitis. Will cover with Zosyn. *DC/Admit/Observation/Transfer Diagnosis at time of Disposition: Vertebral fracture Qualifiers: Encounter type: initial encounter Fracture of vertebra location: lumbar Lumbar vertebra fracture level: unspecified lumbar vertebra Fracture type: closed Fracture morphology: other fracture Qualified Code(s): S32.008A - Other fracture of unspecified lumbar vertebra, initial encounter for closed fracture - Discharge Dispostion Condition at time of disposition: Stable Admit: Yes - Referrals Referrals: Dallas Avalos MD [Primary Care Provider] - - Patient Instructions - Post Discharge Activity
[2017-03-29] MEDS ORDERED: PREGABALIN 50 MG CAPSULE ONE (21:28)
[2017-03-29] MEDS ORDERED: WARFARIN NA 1 MG TABLET (FP) ONE (21:29)
[2017-03-29] MEDS ORDERED: MONTELUKAST NA 10 MG TABLET ONE (21:29)
[2017-03-29] MEDS ORDERED: ATORVASTATIN CA 40 MG TABLET (FP) ONE (21:29)
[2017-03-29] MEDS ORDERED: dilTIAZem HCL 60 MG TABLET (FP) ONE (21:29)
[2017-03-29] MEDS ORDERED: dilTIAZem HCL 60 MG TABLET (FP) PO ONE (21:49)
[2017-03-29] MEDS ORDERED: MONTELUKAST NA 10 MG TABLET PO ONE (21:49)
[2017-03-29] MEDS ORDERED: ATORVASTATIN CA 20 MG TABLET (FP) PO ONE (21:50)
[2017-03-29] MEDS ORDERED: WARFARIN NA 3 MG TABLET PO ONE (21:50)
[2017-03-29] MEDS ORDERED: PREGABALIN 50 MG CAPSULE PO ONE (21:51)
[2017-03-29] MEDS ORDERED: FAMOTIDINE IV 20 MG/12 ML VIAL IVPUSH SCH (22:00)
[2017-03-29] MEDS ORDERED: PIPERACILLIN/TAZOB 3.375 GM/50 ML PRE-DOCKED IV ONE (23:31)
--- NOTE | 2017-03-29 23:45 | HP ---
CHIEF COMPLAINT: Abdominal pain , cough, sob PCP:Dr Avalos HISTORY OF PRESENT ILLNESS: The patient is an 86 year old female with past medical history of multiple myeloma, Afib, CHF, and diabetes who presents to the ED with complaints of cough , SOB, chest pain, and abdominal pain. Pt states that her symptoms have progressively worsened over the past week. She states the pain is intermittent and radiates from her chest down to her epigastric area. She endorses nausea without vomiting. Denies diarrhea/constipation. Pt also endorses SOB that is worse with any sort of exertion. Additionally, she complains of lower back pain. She denies any recent illness or fevers. ER course was notable for: (1)EKG Atrial fibrilation , QT 296 (2)CBC, CMP (3)CT Abdomen Recent Travel:denies PAST MEDICAL HISTORY: CHF, MM, Afib, HTN, HLD, COPD, back pain, DM, Brain tumor PAST SURGICAL HISTORY: cataract, Social History: Smokinppd for 55 years Alcohol:denies Drugs: denies Family History: Allergies Iodinated Contrast- Oral and IV Dye [IV Dye, Iodine Containing Contrast ] Allergy (Verified 03/29/17 14:36) Sulfa (Sulfonamide Antibiotics) Allergy (Verified 03/29/17 14:36) HOME MEDICATIONS: Home Medications Medication Instructions Recorded Atorvastatin Ca [Lipitor] 20 mg PO HS 08/14/16 Diltiazem [Cardizem -] 60 mg PO BID 08/14/16 Ergocalciferol (Vitamin D2) 2,000 unit PO DAILY 08/14/16 [Vitamin D2] Metformin HCl [Metformin HCl ER] 500 mg PO DAILY 08/14/16 Metoprolol Tartrate [Lopressor -] 25 mg PO DAILY 08/14/16 Montelukast Na [Singulair -] 10 mg PO HS 08/14/16 Pregabalin [Lyrica -] 50 mg PO BID 08/14/16 Propylthiouracil 50 mg PO DAILY 08/14/16 Albuterol 0.083% Nebulizer Juani 1 amp NEB Q6H PRN #30 amp 08/26/16 [Ventolin 0.083% Nebulizer Soln -] Ipratropium 0.02% Nebulizer 1 amp NEB Q6H PRN #30 amp 08/26/16 [Atrovent 0.02% Nebulizer -] Acetaminophen [Tylenol] 650 mg PO BID PRN 11/01/16 Lorazepam 0.25 mg PO BID 11/01/16 Potassium Chloride [K-Dur -] 20 meq PO BID #60 tab.ec 11/03/16 Warfarin Na [Coumadin -] 3 mg PO DAILY@1800 11/10/16 Collagenase Clostridium Hist. 1 applic TP DAILY #1 tube 11/14/16 [Santyl -] Docusate Sodium [Colace -] 100 mg PO BID #60 cap 11/14/16 Polyethylene Glycol 3350 [Miralax 17 gm PO BID #1 bottle 11/14/16 119 gm Btl -] REVIEW OF SYSTEMS CONSTITUTIONAL: Absent: fever, chills, diaphoresis, generalized weakness, malaise, loss of appetite, weight change HEENT: Absent: rhinorrhea, nasal congestion, throat pain, throat swelling, difficulty swallowing, mouth swelling, ear pain, eye pain, visual changes CARDIOVASCULAR: Absent: chest pain, syncope, palpitations, irregular heart rate, lightheadedness , peripheral edema RESPIRATORY: Absent: shortness of breath, cough, dyspnea with exertion, orthopnea, wheezing, stridor, hemoptysis GASTROINTESTINAL: Absent: abdominal pain, abdominal distension, nausea, vomiting, diarrhea, constipation, melena, hematochezia GENITOURINARY: Absent: dysuria, frequency, urgency, hesitancy, hematuria, flank pain, genital pain MUSCULOSKELETAL: Absent: myalgia, arthralgia, joint swelling, back pain, neck pain SKIN: Absent: rash, itching, pallor HEMATOLOGIC/IMMUNOLOGIC: Absent: easy bleeding, easy bruising, lymphadenopathy, frequent infections ENDOCRINE: Absent: unexplained weight gain, unexplained weight loss, heat intolerance, cold intolerance NEUROLOGIC: Absent: headache, focal weakness or paresthesias, dizziness, unsteady gait, seizure, mental status changes, bladder or bowel incontinence PSYCHIATRIC: Absent: anxiety, depression, suicidal or homicidal ideation, hallucinations. PHYSICAL EXAMINATION Vital Signs - 24 hr 03/29/17 03/29/17 03/29/17 14:36 14:58 18:39 Temperature 97.9 F Pulse Rate 102 H Pulse Rate [ 102 H Right Radial] Respiratory 22 18 Rate Blood Pressure 124/89 Blood Pressure 126/76 [Left Arm] O2 Sat by Pulse 100 100 100 Oximetry (%) 03/29/17 21:15 Temperature Pulse Rate Pulse Rate [ 99 H Right Radial] Respiratory 18 Rate Blood Pressure Blood Pressure 104/60 [Left Arm] O2 Sat by Pulse 100 Oximetry (%) GENERAL: Awake, alert, and fully oriented, in no acute distress.resting on her right side HEAD: Normal with no signs of trauma. EYES: Pupils equal, round and reactive to light, sclera anicteric, conjunctiva pallor EARS, NOSE, THROAT:dry mucous membranes. NECK: Normal range of motion, supple LUNGS: Breath sounds equal, clear to auscultation bilaterally. No wheezes, and no crackles. No accessory muscle use. HEART: IRRegular rate and rhythm, normal S1 and S2 with 2/6 systolic murmur, No rub or gallop. ABDOMEN: Soft, nontender, not distended, normoactive bowel sounds, no guarding, no rebound, MUSCULOSKELETAL: Normal range of motion at all joints. No bony deformities or tenderness. No CVA tenderness. UPPER EXTREMITIES: 2+ pulses, warm, well-perfused. No cyanosis. No clubbing. No peripheral edema. LOWER EXTREMITIES: 2+ pulses, warm, well-perfused. No calf tenderness. No peripheral edema. NEUROLOGICAL: No focal deficit , Normal speech. . SKIN: Warm, dry, no rashes or lesions noted, Laboratory Results - last 24 hr 03/29/17 03/29/17 03/29/17 15:14 15:14 15:14 WBC 7.5 RBC 3.37 L Hgb 9.5 L Hct 29.7 L MCV 88.2 MCH 28.2 MCHC 32.0 RDW 19.9 H D Plt Count 264 D MPV 8.5 Neutrophils % 63.6 Lymphocytes % 24.3 D Monocytes % 9.9 Eosinophils % 1.4 Basophils % 0.8 PT with INR INR PTT (Actin FS) D-Dimer Sodium 138 Potassium 5.3 H Chloride 104 Carbon Dioxide 26 Anion Gap 8 BUN 9 Creatinine 0.9 D Creat Clearance w eGFR 59.09 Random Glucose 78 Lactic Acid 3.0 H* Calcium 9.0 Total Bilirubin 0.5 AST 40 H D ALT 17 D Alkaline Phosphatase 65 D Creatine Kinase 86 Troponin I < 0.02 Total Protein 11.1 H D Albumin 2.8 L Lipase Blood Type Antibody Screen 03/29/17 03/29/17 03/29/17 15:14 15:14 15:14 WBC RBC Hgb Hct MCV MCH MCHC RDW Plt Count MPV Neutrophils % Lymphocytes % Monocytes % Eosinophils % Basophils % PT with INR 22.30 H INR 1.97 H PTT (Actin FS) 34.4 D D-Dimer Sodium Potassium Chloride Carbon Dioxide Anion Gap BUN Creatinine Creat Clearance w eGFR Random Glucose Lactic Acid Calcium Total Bilirubin AST ALT Alkaline Phosphatase Creatine Kinase Troponin I Total Protein Albumin Lipase 244 Blood Type Cancelled Antibody Screen Cancelled 03/29/17 03/29/17 19:36 19:36 WBC RBC Hgb Hct MCV MCH MCHC RDW Plt Count MPV Neutrophils % Lymphocytes % Monocytes % Eosinophils % Basophils % PT with INR INR PTT (Actin FS) D-Dimer 353 H Sodium Potassium Chloride Carbon Dioxide Anion Gap BUN Creatinine Creat Clearance w eGFR Random Glucose Lactic Acid 1.5 Calcium Total Bilirubin AST ALT Alkaline Phosphatase Creatine Kinase Troponin I Total Protein Albumin Lipase Blood Type Antibody Screen CBC, BMP 03/29/17 15:14 03/29/17 15:14 Current Medications Generic Name Dose Route Start Last Admin Trade Name Freq PRN Reason Stop Dose Admin Acetaminophen 650 mg 03/30/17 01:16 Tylenol - PO Q12H PRN PAIN Albuterol Sulfate 1 amp 03/30/17 01:16 Ventolin 0.083% Nebulizer Soln - NEB Q6H PRN SHORT OF BREATH/WHEEZING Atorvastatin Calcium 20 mg 03/30/17 22:00 Lipitor - PO HS BURKE Diltiazem HCl 60 mg 03/30/17 10:00 Cardizem - PO BID [facility] Docusate Sodium 100 mg 03/30/17 10:00 Colace - PO BID [facility] Insulin Aspart 1 vial 03/30/17 07:00 Novolog Vial Sliding Scale - SQ ACHS [facility] Protocol Ipratropium [place] 1 amp 03/30/17 01:16 Atrovent 0.02% Nebulizer - NEB Q6H PRN WHEEZING Lorazepam 0.25 mg 03/30/17 10:00 Ativan - PO BID [facility] Metoprolol Tartrate 25 mg 03/30/17 10:00 Lopressor - PO DAILY [facility] Montelukast Sodium 10 mg 03/30/17 22:00 Singulair - PO HS [facility] Non-Formulary Medication 2,000 unit 03/30/17 10:00 Ergocalciferol (Vitamin D2) [Vitamin D2] PO DAILY [facility] Piperacillin/Tazobactam/Dextrose 3.375 gm 03/30/17 08:00 Zosyn 3.375gm Ivpb (Premix) IVPB 03/30/17 08:01 ONCE ONE Polyethylene Glycol 17 gm 03/30/17 10:00 Miralax (For Daily Use) - PO BID [facility] Pregabalin 50 mg 03/30/17 10:00 Lyrica - PO BID [facility] Propylthiouracil 50 mg 03/30/17 10:00 Ptu - PO DAILY [facility] Warfarin Sodium 3 mg 03/30/17 18:00 Coumadin - PO DAILY@1800 [facility] 03/29/[address] chest CT CAP: Left upper and LL and RLL reticulonodular infilterates most likely due to chronic atypical pna/lung scarringm Appendix, not ID's ? Mild acute appendicitis, acute diverticulitis of descending and sigmoid colon with mild beatriz-colonic edema from infection. Multiple age-indeterminate compression fx throughout thoracic and lumbar spine. 8.1cm R Kidney cyst, cholithiasis with moderate gallbladder dist. ass w. dysmotility. Large hernia of stomach, transverse colon, pancreatic tail and prox. jejunum into L. posterior chest. ASSESSMENT/PLAN: The patient is an 86 year old female with past medical history of multiple myeloma, Afib, CHF, and diabetes who presents to the ED with complaints of cough , SOB, chest pain, and abdominal pain. was found to have acute diverticulitis and was admitted to med surg for further evaluation and treatment. # Abdominal Pain * Likely 2/2 acute diverticulitis * Maza cx blood, urine, sputum * ID consult DR doe * Surgery consult (patient is refusing due to her age ) * CBC, CMP in AM * repeat LA * IV abx Zosyn 3.325 once , continue with ID recommendations * NPO # Anemia likely 2/2 MM * H/H 9.5/29.7 * trend H/H # CHF * In no exacerbation * continue home meds # AFIB * rate controlled * Continue Lopressor 25 mg Po daily , Diltiazim 60 PO BID * INR therapeutic # HTN * contrlled * continue home meds #HLD * continue home meds Lipitor 20 po SH #COPD * In no exacerbation * Continue home meds #DM * Hold Home meds * BGM * ISS # Hyperthyroidism * continue home meds PTU 50 mg po daily * # Constipation * continue Miralax, colace # Chromic back pain , * continue Lyrica and tylenol 650 Po as needed # FEN * F: on No fluids * E Hyper kalemia , monitor * N : NPO for now except meds # Proph * DVT SCDs both legs , on Coumadin 3 mg Po daily * # Dispo * Admit to med surg Visit type - Emergency Visit Emergency Visit: Yes ED Registration Date: 03/29/17 Care time: The patient presented to the Emergency Department on the above date and was hospitalized for further evaluation of their emergent condition. - New Patient This patient is new to me today: No - Critical Care Critical Care patient: No
--- NOTE | 2017-03-29 23:47 | PN ---
Teaching Attending Note Name of Resident: Marko Rolle ATTENDING PHYSICIAN STATEMENT I saw and evaluated the patient. I reviewed the resident's note and discussed the case with the resident. I agree with the resident's findings and plan as documented. SUBJECTIVE: 86 F with hx. of Multiple Myeloma, afib, htn, hld, copd, ESBL UT, DM, anemia requiring transfusion, afib, chf, and DM who presents with abdominal pain and cough. States pain is intermittent in nature and also has back pain. No Fevers or chills, chest pain or pressure or shortness of breath. OBJECTIVE: Physical: VS: Vital Signs Period Temp Pulse Resp BP Sys/Nieto Pulse Ox Last 24 Hr 97.9 F 99-102 18-22 104-126/60-89 100-100 GEN: Elderly female, resting in bed in NAD HEENT: NCAT, PERRL, throat without erythema or exudates CARD: RRR S1, S2 RESP: Decreased breath sounds at bases ABD: BSx4, NTD to palpation EXT: - C/C/E CBCD WBC 7.5 K/mm3 (4.0-10.0) 03/29/17 15:14 RBC 3.37 M/mm3 (3.60-5.2) L 03/29/17 15:14 Hgb 9.5 GM/dL (10.7-15.3) L 03/29/17 15:14 Hct 29.7 % (32.4-45.2) L 03/29/17 15:14 MCV 88.2 fl (80-96) 03/29/17 15:14 MCHC 32.0 g/dl (32.0-36.0) 03/29/17 15:14 RDW 19.9 % (11.6-15.6) H D 03/29/17 15:14 Plt Count 264 K/MM3 (134-434) D 03/29/17 15:14 MPV 8.5 fl (7.5-11.1) 03/29/17 15:14 CMP Sodium 138 mmol/L (136-145) 03/29/17 15:14 Potassium 5.3 mmol/L (3.5-5.1) H 03/29/17 15:14 Chloride 104 mmol/L (98-107) 03/29/17 15:14 Carbon Dioxide 26 mmol/L (21-32) 03/29/17 15:14 Anion Gap 8 (8-16) 03/29/17 15:14 BUN 9 mg/dL (7-18) 03/29/17 15:14 Creatinine 0.9 mg/dL (0.55-1.02) D 03/29/17 15:14 Creat Clearance w eGFR 59.09 (>60) 03/29/17 15:14 Random Glucose 78 mg/dL (74-106) 03/29/17 15:14 Calcium 9.0 mg/dL (8.5-10.1) 03/29/17 15:14 Total Bilirubin 0.5 mg/dL (0.2-1.0) 03/29/17 15:14 AST 40 U/L (15-37) H D 03/29/17 15:14 ALT 17 U/L (12-78) D 03/29/17 15:14 Alkaline Phosphatase 65 U/L (45-117) D 03/29/17 15:14 Total Protein 11.1 g/dl (6.4-8.2) H D 03/29/17 15:14 Albumin 2.8 g/dl (3.4-5.0) L 03/29/17 15:14 CARDIAC ENZYMES Creatine Kinase 86 IU/L (26-192) 03/29/17 15:14 Troponin I < 0.02 ng/ml (0.00-0.05) 03/29/17 15:14 CT CAP: Left upper and LL and RLL reticulonodular infilterates most likely due to chronic atypical pna/lung scarringm Appendix, not ID's ? Mild acute appendicitis, acute diverticulitis of descending and sigmoid colon with mild beatriz-colonic edema from infection. Multiple age-indeterminate compression fx throughout thoracic and lumbar spine. 8.1cm R Kidney cyst, cholithiasis with moderate gallbladder dist. ass w. dysmotility. Large hernia of stomach, transverse colon, pancreatic tail and prox. jejunum into L. posterior chest. INR, PTT INR 1.97 (0.82-1.09) H 03/29/17 15:14 Ambulatory Orders Atorvastatin Ca [Lipitor] 20 mg PO HS 08/14/16 Diltiazem [Cardizem -] 60 mg PO BID 08/14/16 Ergocalciferol (Vitamin D2) [Vitamin D2] 2,000 unit PO DAILY 08/14/16 Metformin HCl [Metformin HCl ER] 500 mg PO DAILY 08/14/16 Metoprolol Tartrate [Lopressor -] 25 mg PO DAILY 08/14/16 Montelukast Na [Singulair -] 10 mg PO HS 08/14/16 Pregabalin [Lyrica -] 50 mg PO BID 08/14/16 Propylthiouracil 50 mg PO DAILY 08/14/16 Albuterol 0.083% Nebulizer [place] [Ventolin 0.083% Nebulizer Soln -] 1 amp NEB Q6H PRN #30 amp 08/26/16 Ipratropium 0.02% Nebulizer [Atrovent 0.02% Nebulizer -] 1 amp NEB Q6H PRN #30 amp 08/26/16 Acetaminophen [Tylenol] 650 mg PO BID PRN 11/01/16 Lorazepam 0.25 mg PO BID 11/01/16 Potassium Chloride [K-Dur -] 20 meq PO BID #60 tab.ec 11/03/16 Warfarin Na [Coumadin -] 3 mg PO DAILY@1800 11/10/16 Collagenase Clostridium Hist. [Santyl -] 1 applic TP DAILY #1 tube 11/14/16 Docusate Sodium [Colace -] 100 mg PO BID #60 cap 11/14/16 Polyethylene Glycol 3350 [Miralax 119 gm Btl -] 17 gm PO BID #1 bottle 11/14/16 ASSESSMENT AND PLAN: 86 F with hx. of CHF, COPD, Anemia, MM, afib, UTI, back pain, HLD who presens with abdominal pain found to have acute diverticulities, appendicitis and largia hiatal hernia. 1.) Abdominal Pain - Most likely due to acute diverticulitis - Appendix could not be visualized on CT- Await final read?acute appendicitis - Zosyn - ID consult - PT. and Family states she will never want surgery- will hold off sx. consult - Maza Cx, CHECK UA, UCx - Repeat LA 2.) Afib - Recieved Coumadin in ED - Coags, Type and Screen - INR 2-3 - IF no Sx, then c/w coumadin, of sx needed, then hep. gtt - C/W BB 3.) Anemia/MM - Trend H&H 4.) CHF - Not in Exacerbation - C/W Home meds 5.) DM - FS - RAISS - Hold Metformin 6.) COPD - C/W Home meds 7.) Dvt Ppx - Inr Theraputic Place in Med-Sx
[2017-03-29] MEDS ORDERED: PIPERACILLIN/TAZOB 3.375 GM 3.375 GM/50 ML BAG IVPB ONE (23:59)
[2017-03-30] MEDS ORDERED: ACETAMINOPHEN 325 MG TABLET (FP) PO ONE (01:11)
[2017-03-30] MEDS ORDERED: ACETAMINOPHEN 325 MG TABLET (FP) PO PRN (01:16)
[2017-03-30 01:22] LABS: URINE APPEARANCE CLEAR; URINE BILIRUBIN NEGATIVE (NEGATIVE); URINE BLOOD NEGATIVE (NEGATIVE); URINE COLOR YELLOW; URINE GLUCOSE (UA) NEGATIVE (NEGATIVE); URINE KETONE NEGATIVE (NEGATIVE); URINE LEUK ESTERASE NEGATIVE (NEGATIVE); URINE NITRITE NEGATIVE (NEGATIVE)
[2017-03-30 01:23] LABS: URINE PROTEIN 1+ (NEGATIVE)
[2017-03-30 01:25] LABS: URINE BACTERIA RARE /hpf (NONE SEEN); URINE HYALINE CAST 1 /lpf; URINE MUCUS RARE
[2017-03-30] MEDS ORDERED: ACETAMINOPHEN 325 MG TABLET (FP) ONE (01:25)
[2017-03-30] MEDS: INSULIN SLIDING SCALE (NOVOLOG) 1 VIAL SQ SCH ×4 (06:18→21:28)
[2017-03-30] MEDS ORDERED: PIPERACILLIN/TAZOB 3.375 GM 3.375 GM in DEXTROSE 5%-WATER - 100 ML IVPB ONE (08:00)
[2017-03-30] MEDS ORDERED: PIPERACIL/TAZOB 3.375 GM 3.375 GM/50 ML PREMIX IVPB ONE (08:00)
[2017-03-30 08:37] LABS: BASO % 0.2 % (0-2.0); EOS % 1.2 % (0-4.5); HEMATOCRIT 27.3 % (32.4-45.2); HEMOGLOBIN 8.6 GM/dL (10.7-15.3); LYMPH % 20.9 % (8-40); MCH 27.9 pg (25.7-33.7); MCHC 31.4 g/dl (32.0-36.0); MEAN CELL VOLUME 88.9 fl (80-96); MEAN PLT VOLUME 8.1 fl (7.5-11.1); MONO % 9.5 % (3.8-10.2); NEUT % 68.2 % (42.8-82.8); PLATELET COUNT 232 K/MM3 (134-434); RBC 3.07 M/mm3 (3.60-5.2); RDW 20.4 % (11.6-15.6); WHITE BLOOD COUNT 7.3 K/mm3 (4.0-10.0)
[2017-03-30 08:42] LABS: INR 2.19 (0.82-1.09); PROTHROMBIN TIME (PATIENT) 24.7 SEC (9.98-11.88)
[2017-03-30 08:45] LABS: ACTIVATED PTT 33.1 SECONDS (26.9-34.4)
--- NOTE | 2017-03-30 09:24 | PN ---
Progress Note, Physician Chief Complaint: ID Full note dictated Alert NAD LLQ pain - Current Medication List Current Medications: Active Medications Acetaminophen (Tylenol -) 650 mg PO Q12H PRN PRN Reason: PAIN Albuterol Sulfate (Ventolin 0.083% Nebulizer Soln -) 1 amp NEB Q6H PRN PRN Reason: SHORT OF BREATH/WHEEZING Atorvastatin Calcium (Lipitor -) 20 mg PO HS [facility] Cholecalciferol (Vitamin D3 -) 2,000 unit PO DAILY [facility] Diltiazem HCl (Cardizem -) 60 mg PO BID [facility] Docusate Sodium (Colace -) 100 mg PO BID [facility] Insulin Aspart (Novolog Vial Sliding Scale -) 1 vial SQ ACHS [facility] PRN Reason: Protocol Last Admin: 03/30/17 06:18 Dose: Not Given Ipratropium [place] (Atrovent 0.02% Nebulizer -) 1 amp NEB Q6H PRN PRN Reason: WHEEZING Lorazepam (Ativan -) 0.25 mg PO BID [facility] Metoprolol Tartrate (Lopressor -) 25 mg PO DAILY [facility] Montelukast Sodium (Singulair -) 10 mg PO HS [facility] Polyethylene Glycol (Miralax (For Daily Use) -) 17 gm PO BID [facility] Pregabalin (Lyrica -) 50 mg PO BID [facility] Propylthiouracil (Ptu -) 50 mg PO DAILY [facility] Warfarin Sodium (Coumadin -) 3 mg PO DAILY@1800 [facility] - Objective Vital Signs: Vital Signs Temperature 97.8 F 03/30/17 06:00 Pulse Rate 86 03/30/17 06:00 Respiratory Rate 20 03/30/17 06:00 Blood Pressure 110/58 03/30/17 06:00 O2 Sat by Pulse Oximetry (%) 94 L 03/30/17 02:25 Constitutional: Yes: No Distress Neck: Yes: WNL, Supple Cardiovascular: Yes: Regular Rate and Rhythm, Murmur, S1, S2 Respiratory: Yes: WNL, Regular, CTA Bilaterally, Other (rales) Gastrointestinal: Yes: WNL, Normal Bowel Sounds, Soft, Tenderness, Other (LLQ) Edema: No Labs: CBC, BMP 03/30/17 07:00 INR, PTT INR 2.19 (0.82-1.09) H 03/30/17 07:00 Problem List - Problems (1) Pneumonia Code(s): J18.9 - PNEUMONIA, UNSPECIFIED ORGANISM (2) Atrial fibrillation Code(s): I48.91 - UNSPECIFIED ATRIAL FIBRILLATION Qualifiers: Atrial fibrillation type: chronic Qualified Code(s): I48.2 - Chronic atrial fibrillation (3) Diverticulitis Code(s): K57.92 - DVTRCLI OF INTEST, PART UNSP, W/O PERF OR ABSCESS W/O BLEED Assessment/Plan Microbiology Laboratory Tests 03/29/17 03/29/17 03/29/17 15:14 15:14 15:14 WBC 7.5 Hgb 9.5 L Plt Count 264 D Lactic Acid 3.0 H* AST 40 H D Urine WBC (Auto) Urine RBC (Auto) 03/30/17 01:15 WBC Hgb Plt Count Lactic Acid AST Urine WBC (Auto) 3 Urine RBC (Auto) 3 Assessment Full note dictated Plan Zosyn 3.375grs q 8 H CRP Surgical evaluation Oscar RO
[2017-03-30 09:37] LABS: ALBUMIN 2.4 g/dl (3.4-5.0); AMYLASE 62 U/L (25-115); ANION GAP 9 (8-16); BILIRUBIN,TOTAL 0.5 mg/dL (0.2-1.0); BLOOD UREA NITROGEN 7 mg/dL (7-18); CALCIUM 8.3 mg/dL (8.5-10.1); CHLORIDE 109 mmol/L (98-107); CO2 23 mmol/L (21-32); CREATININE 0.8 mg/dL (0.55-1.02); GLUCOSE,RANDOM 76 mg/dL (74-106); LIPASE 193 U/L (73-393); MAGNESIUM 1.3 mg/dL (1.8-2.4); PHOSPHOROUS 3.4 mg/dL (2.5-4.9); POTASSIUM 3.9 mmol/L (3.5-5.1); SGOT/AST 17 U/L (15-37); SGPT/ALT 12 U/L (12-78); SODIUM 141 mmol/L (136-145); TOT PROT 9.5 g/dl (6.4-8.2)
[2017-03-30 09:38] LABS: ALK PHOS 57 U/L (45-117)
[2017-03-30] MEDS: PIPERACILLIN/TAZOB 3.375 GM 3.375 GM in DEXTROSE 5%-WATER - 100 ML IVPB SCH ×2 (09:48→17:09)
[2017-03-30] MEDS ORDERED: dilTIAZem HCL 60 MG TABLET (FP) PO SCH (10:00)
[2017-03-30] MEDS: LORazepam 0.5 MG TABLET PO SCH ×2 (11:42→22:31)
--- NOTE | 2017-03-30 11:42 | CONS ---
DATE OF CONSULTATION: HISTORY: This is an 86-year-old female with a history of multiple myeloma, atrial fibrillation, congestive heart failure, and diabetes brought to the emergency room as per the admitting notes with shortness of breath, cough, and abdominal pain where she points mostly to her left lower quadrant going on for the last week. Her pain was described as radiating across her chest and into the epigastric area with nausea but no vomiting, diarrhea, or constipation. Here, her imaging study was read as a preliminary read with diverticulitis. She has no fever or chills, and I am asked to see her for further evaluation. PAST MEDICAL HISTORY: As noted above. Additional history includes COPD and a history of a brain tumor. SOCIAL HISTORY: Iiq-hfgg-bpm-day smoker for 55 years. Denies alcohol use. ALLERGIES: IODINATED CONTRAST and SULFA. REVIEW OF SYSTEMS: Respiratory: Shortness of breath, cough with exertion. Cardiac: Chest pain. History of atrial fibrillation. Gastrointestinal: Left lower quadrant pain with nausea. No vomiting, diarrhea, constipation, blood per rectum. Genitourinary: No dysuria, hematuria, urinary frequency. PHYSICAL EXAMINATION: General: She is a frail-appearing woman in no acute distress. Vital Signs: The temperature is 97.8, pulse 86, blood pressure 110/58, respirations 20. Neck: Supple. Lungs: Clear to percussion with rales noted in the lower lobes. Heart: S1, S2. Irregularly irregular with a 2/6 systolic murmur heard at the lower sternal border. Abdomen: Positive bowel sounds. Soft. Mild tenderness on direct palpation left lower quadrant. No guarding or rebound. Extremities: No clubbing, cyanosis, or edema. LABORATORY DATA: The white count is 7.5 with a hemoglobin 9.5 and platelets 264. BUN 9, creatinine 0.9. Liver enzymes within normal limits. Lactic acid 3 and repeat 1.5. Urinalysis with 3 white cells and 3 red cells. A urine culture was sent and is currently pending. ASSESSMENT: An elderly female who presents with cough and chest pain as well as left lower quadrant pain. CAT scan of the chest was reviewed and shows what appears to be an infiltrate in the left lower lobe with air bronchogram seen. Mention is made of diverticulitis, but the official reading is not currently available. For now, I will empirically treat her with piperacillin and tazobactam, obtain a CRP level, and review both the CAT scan of the chest and abdomen in radiology with Dr. Cuevas to obtain an official reading. AMBROCIO DE LOS SANTOS M.D. [id number]
[2017-03-30] MEDS: POLYETHYLENE GLYCOL 3350 119 GM BTL PO SCH ×2 (11:43→21:25)
[2017-03-30] MEDS: DOCUSATE SODIUM 100 MG CAPSULE (FP) PO SCH ×2 (11:43→21:25)
[2017-03-30] MEDS: METOPROLOL TARTRATE 25 MG TABLET (FP) PO SCH (11:43)
[2017-03-30] MEDS: PROPYLTHIOURACIL 50 MG TABLET (UD) PO SCH (11:43)
[2017-03-30] MEDS: CHOLECALCIFEROL (VITAMIN D3) 1,000 UNIT TABLET (FP) PO SCH (11:43)
[2017-03-30] MEDS: PREGABALIN 50 MG CAPSULE PO SCH ×2 (11:43→21:25)
[2017-03-30] MEDS: dilTIAZem HCL 60 MG TABLET (FP) PO SCH ×2 (11:43→21:25)
[2017-03-30] MEDS ORDERED: MAGNESIUM SULF 50% (8.12 MEQ/2 ML-1 GM VIAL) IVPB ONE (12:25)
--- NOTE | 2017-03-30 12:44 | EKG ---
Test Reason : Blood Pressure : / mmHG Vent. Rate : 104 BPM Atrial Rate : 110 BPM P-R Int : 000 ms QRS Dur : 074 ms QT Int : 296 ms P-R-T Axes : 000 -31 053 degrees QTc Int : 389 ms ATRIAL FIBRILLATION WITH RAPID VENTRICULAR RESPONSE LEFT AXIS DEVIATION ABNORMAL ECG WHEN COMPARED WITH ECG OF 10-NOV-2016 16:13, NO SIGNIFICANT CHANGE WAS FOUND Confirmed by JESSICA MCNULTY MD ([id number]) on 03/30/2017 12:44:22 PM Referred By: Confirmed By:JESSICA MCNULTY MD
--- NOTE | 2017-03-30 12:59 | PN ---
Progress Note, Physician Chief Complaint: Ms Sanchez says she feels terrible. Says she still has abdominal pain and cough. No cp or sob. - Current Medication List Current Medications: Active Medications Acetaminophen (Tylenol -) 650 mg PO Q12H PRN PRN Reason: PAIN Albuterol Sulfate (Ventolin 0.083% Nebulizer Soln -) 1 amp NEB Q6H PRN PRN Reason: SHORT OF BREATH/WHEEZING Atorvastatin Calcium (Lipitor -) 20 mg PO [facility] Cholecalciferol (Vitamin D3 -) 2,000 unit PO DAILY [facility] Last Admin: 03/30/17 11:43 Dose: Not Given Diltiazem HCl (Cardizem -) 60 mg PO BID [facility] Last Admin: 03/30/17 11:43 Dose: Not Given Docusate Sodium (Colace -) 100 mg PO BID [facility] Last Admin: 03/30/17 11:43 Dose: Not Given Piperacillin Sod/Tazobactam (Sod 3.375 gm/ Dextrose) 100 mls @ 100 mls/hr IVPB Q8H-IV [facility] PRN Reason: Protocol Last Admin: 03/30/17 09:48 Dose: Not Given Magnesium Sulfate/Dextrose (Magnesium 1gm/D5w -) 1 gm in 100 mls @ 100 mls/hr IVPB Q1H [facility] Stop: 03/30/17 14:29 Insulin Aspart (Novolog Vial Sliding Scale -) 1 vial SQ ACHS [facility] PRN Reason: Protocol Last Admin: 03/30/17 11:17 Dose: Not Given Ipratropium [place] (Atrovent 0.02% Nebulizer -) 1 amp NEB Q6H PRN PRN Reason: WHEEZING Lorazepam (Ativan -) 0.25 mg PO BID [facility] Last Admin: 03/30/17 11:42 Dose: Not Given Metoprolol Tartrate (Lopressor -) 25 mg PO DAILY [facility] Last Admin: 03/30/17 11:43 Dose: Not Given Montelukast Sodium (Singulair -) 10 mg PO [facility] Polyethylene Glycol (Miralax (For Daily Use) -) 17 gm PO BID [facility] Last Admin: 03/30/17 11:43 Dose: Not Given Pregabalin (Lyrica -) 50 mg PO BID [facility] Last Admin: 03/30/17 11:43 Dose: Not Given Propylthiouracil (Ptu -) 50 mg PO DAILY [facility] Last Admin: 03/30/17 11:43 Dose: Not Given Warfarin Sodium (Coumadin -) 3 mg PO DAILY@1800 [facility] - Objective Vital Signs: Vital Signs Temperature 36.4 C L 03/30/17 09:00 Pulse Rate 92 H 03/30/17 09:00 Respiratory Rate 20 03/30/17 09:00 Blood Pressure 124/74 03/30/17 09:00 O2 Sat by Pulse Oximetry (%) 95 03/30/17 09:00 Constitutional: Yes: Well Nourished, No Distress, Calm Cardiovascular: Yes: Pulse Irregular. No: Tachycardia, Gallop, Murmur, Rub Respiratory: Yes: Regular, CTA Bilaterally. No: Rales, Rhonchi, Wheezes Gastrointestinal: Yes: Soft, Hypoactive Bowel Sounds, Tenderness. No: Normal Bowel Sounds, Distention Extremities: Yes: WNL Edema: No Labs: CBC, BMP 03/30/17 07:00 03/30/17 07:00 INR, PTT INR 2.19 (0.82-1.09) H 03/30/17 07:00 Problem List - Problems (1) Diverticulitis Assessment/Plan: -patient with abdominal pain and found to have diverticulitis -appreciate ID assistance -continue npo currently since still with significant pain -hydration with IVF -monitor for improvement Code(s): K57.92 - DVTRCLI OF INTEST, PART UNSP, W/O PERF OR ABSCESS W/O BLEED (2) Pneumonia Assessment/Plan: -with cough and seen on CT scan -continue zosyn currently -ID following and managing antibiotics -immunocompromised Code(s): J18.9 - PNEUMONIA, UNSPECIFIED ORGANISM (3) Vertebral fracture Assessment/Plan: -chronic -monitor Code(s): [id number] - Qualifiers: Encounter type: initial encounter Fracture of vertebra location: lumbar Lumbar vertebra fracture level: unspecified lumbar vertebra Fracture type: closed Fracture morphology: other fracture Qualified Code(s): S32.008A - Other fracture of unspecified lumbar vertebra, initial encounter for closed fracture (4) Atrial fibrillation Assessment/Plan: -rate controlled -therapeutic INR -may need to use lovenox since holding medications -if improved, can restart oral medications tomorrow Code(s): I48.91 - UNSPECIFIED ATRIAL FIBRILLATION Qualifiers: Atrial fibrillation type: chronic Qualified Code(s): I48.2 - Chronic atrial fibrillation (5) Atypical chest pain Assessment/Plan: -secondary to pneumonia and coughing Code(s): R07.89 - OTHER CHEST PAIN (6) COPD (chronic obstructive pulmonary disease) Assessment/Plan: -controlled -continue current management Code(s): J44.9 - CHRONIC OBSTRUCTIVE PULMONARY DISEASE, UNSPECIFIED (7) Congestive heart failure Assessment/Plan: -not in exacerbation -gentle hydration with close follow up Code(s): I50.9 - HEART FAILURE, UNSPECIFIED Qualifiers: Congestive heart failure type: diastolic Congestive heart failure chronicity: chronic Qualified Code(s): I50.32 - Chronic diastolic (congestive ) heart failure (8) Diabetes mellitus Assessment/Plan: -glucose low -will place on D5 1/2 NS currently -can change to NS if hyperglycemic Code(s): E11.9 - TYPE 2 DIABETES MELLITUS WITHOUT COMPLICATIONS (9) Hyperlipidemia Assessment/Plan: -hold lipitor currently Code(s): E78.5 - HYPERLIPIDEMIA, UNSPECIFIED (10) Multiple myeloma Assessment/Plan: -being followed by oncology as an outpatient Code(s): C90.00 - MULTIPLE MYELOMA NOT HAVING ACHIEVED REMISSION Qualifiers: Multiple myeloma remission status: not in remission Qualified Code(s): C90.00 - Multiple myeloma not having achieved remission
[2017-03-30] MEDS: DEXTROSE 5%-0.45% SALINE 1,000 ML IV SCH (13:14)
[2017-03-30] MEDS: MAGNESIUM 1GM/D5W - 1 GM/100 ML IVPB IVPB SCH ×2 (13:33→14:37)
[2017-03-30] MEDS ORDERED: PT OWN MED DRAWER 7, Y5N ONE (17:06)
[2017-03-30] MEDS: WARFARIN NA 3 MG TABLET PO SCH (17:13)
[2017-03-30] MEDS ORDERED: morphine CARPU-JECT 10 MG/1 ML DISP.SYRIN IVPUSH PRN (17:24)
[2017-03-30] MEDS: morphine CARPU-JECT 8 MG/1 ML DISP.SYRIN IVPUSH PRN (17:34)
[2017-03-30] MEDS: ATORVASTATIN CA 20 MG TABLET (FP) PO SCH (21:25)
[2017-03-30] MEDS: MONTELUKAST NA 10 MG TABLET PO SCH (21:26)
[2017-03-30] MEDS: ALBUTEROL SO4 0.083% IH SOL 2.5 MG/3 ML VIAL.NEB. NEB PRN (23:00)
[2017-03-31] MEDS: PIPERACILLIN/TAZOB 3.375 GM 3.375 GM in DEXTROSE 5%-WATER - 100 ML IVPB SCH ×3 (01:09→17:10)
[2017-03-31] MEDS: IPRATROPIUM BR 0.02% 0.5 MG/2.5 ML VIAL.NEB. NEB PRN (03:10)
[2017-03-31] MEDS: INSULIN SLIDING SCALE (NOVOLOG) 1 VIAL SQ SCH ×4 (06:12→21:16)
[2017-03-31] MEDS: ALBUTEROL SO4 0.083% IH SOL 2.5 MG/3 ML VIAL.NEB. NEB PRN ×2 (06:15→20:20)
[2017-03-31 07:53] LABS: ARTERIAL BLD GAS O2 SATURATION 97.7 % (90-98.9); ARTERIAL BLOOD GAS BASE EXCESS 1.4 meq/l (-2-2); ARTERIAL BLOOD GAS PCO2 39.4 mmHg (35-45); ARTERIAL BLOOD GAS PO2 95.2 mmHg (68-100); ARTERIAL BLOOD GAS pH 7.42 (7.35-7.45)
[2017-03-31 08:02] LABS: BASO % 0.3 % (0-2.0); EOS % 0.7 % (0-4.5); HEMATOCRIT 27.3 % (32.4-45.2); HEMOGLOBIN 8.7 GM/dL (10.7-15.3); MCH 28.1 pg (25.7-33.7); MCHC 31.9 g/dl (32.0-36.0); MEAN CELL VOLUME 88.1 fl (80-96); MEAN PLT VOLUME 8.2 fl (7.5-11.1); MONO % 9.2 % (3.8-10.2); NEUT % 66.8 % (42.8-82.8); PLATELET COUNT 215 K/MM3 (134-434); RDW 20.4 % (11.6-15.6); WHITE BLOOD COUNT 9.2 K/mm3 (4.0-10.0)
[2017-03-31 08:15] LABS: ALLENS TEST POSITIVE
[2017-03-31 08:20] LABS: INR 2.4 (0.82-1.09); PROTHROMBIN TIME (PATIENT) 27.1 SEC (9.98-11.88)
[2017-03-31 08:35] LABS: ANION GAP 8 (8-16); BLOOD UREA NITROGEN 4 mg/dL (7-18); CALCIUM 7.8 mg/dL (8.5-10.1); CHLORIDE 108 mmol/L (98-107); CO2 25 mmol/L (21-32); CREATININE 0.9 mg/dL (0.55-1.02); GLUCOSE,RANDOM 114 mg/dL (74-106); MAGNESIUM 1.7 mg/dL (1.8-2.4); PHOSPHOROUS 2.9 mg/dL (2.5-4.9); POTASSIUM 3.4 mmol/L (3.5-5.1); SODIUM 141 mmol/L (136-145)
[2017-03-31] MEDS ORDERED: PT OWN MED DRAWER 7, Y5N ONE (08:59)
[2017-03-31] MEDS: DEXTROSE 5%-0.45% SALINE 1,000 ML IV SCH ×2 (09:03→13:29)
[2017-03-31] MEDS: dilTIAZem HCL 60 MG TABLET (FP) PO SCH ×2 (09:04→21:21)
[2017-03-31] MEDS: LORazepam 0.5 MG TABLET PO SCH ×2 (09:04→21:18)
[2017-03-31] MEDS: DOCUSATE SODIUM 100 MG CAPSULE (FP) PO SCH ×2 (09:04→21:21)
[2017-03-31] MEDS: METOPROLOL TARTRATE 25 MG TABLET (FP) PO SCH (09:04)
[2017-03-31] MEDS: CHOLECALCIFEROL (VITAMIN D3) 1,000 UNIT TABLET (FP) PO SCH (09:05)
[2017-03-31] MEDS: POLYETHYLENE GLYCOL 3350 119 GM BTL PO SCH ×2 (09:05→21:22)
[2017-03-31] MEDS: PREGABALIN 50 MG CAPSULE PO SCH ×2 (09:05→21:22)
[2017-03-31] MEDS: PROPYLTHIOURACIL 50 MG TABLET (UD) PO SCH (09:05)
--- NOTE | 2017-03-31 11:23 | PN ---
Progress Note, Physician Chief Complaint: Ms Sanchez says she is feeling much better. No longer having abdominal pain. No cp or sob. Still with decreased appetite but this is chronic and unchanged. - Current Medication List Current Medications: Active Medications Acetaminophen (Tylenol -) 650 mg PO Q12H PRN PRN Reason: PAIN Albuterol Sulfate (Ventolin 0.083% Nebulizer Soln -) 1 amp NEB Q6H PRN PRN Reason: SHORT OF BREATH/WHEEZING Last Admin: 03/31/17 06:15 Dose: 1 amp Atorvastatin Calcium (Lipitor -) 20 mg PO [facility] Last Admin: 03/30/17 21:25 Dose: Not Given Cholecalciferol (Vitamin D3 -) 2,000 unit PO DAILY [facility] Last Admin: 03/31/17 09:05 Dose: Not Given Diltiazem HCl (Cardizem -) 60 mg PO BID [facility] Last Admin: 03/31/17 09:04 Dose: Not Given Docusate Sodium (Colace -) 100 mg PO BID [facility] Last Admin: 03/31/17 09:04 Dose: Not Given Piperacillin Sod/Tazobactam (Sod 3.375 gm/ Dextrose) 100 mls @ 100 mls/hr IVPB Q8H-IV [facility] PRN Reason: Protocol Last Admin: 03/31/17 09:03 Dose: 100 mls/hr Dextrose/Sodium Chloride (D5-1/2ns -) 1,000 mls @ 50 mls/hr IV [facility] Last Admin: 03/31/17 09:03 Dose: 50 mls/hr Insulin Aspart (Novolog Vial Sliding Scale -) 1 vial SQ ACHS [facility] PRN Reason: Protocol Last Admin: 03/31/17 11:12 Dose: Not Given Ipratropium [place] (Atrovent 0.02% Nebulizer -) 1 amp NEB Q6H PRN PRN Reason: WHEEZING Last Admin: 03/31/17 03:10 Dose: 1 amp Lorazepam (Ativan -) 0.25 mg PO BID [facility] Last Admin: 03/31/17 09:04 Dose: Not Given Metoprolol Tartrate (Lopressor -) 25 mg PO DAILY [facility] Last Admin: 03/31/17 09:04 Dose: Not Given Montelukast Sodium (Singulair -) 10 mg PO [facility] Last Admin: 03/30/17 21:26 Dose: Not Given Morphine Sulfate (Morphine Sulfate) 0.5 mg IVPUSH Q6H PRN PRN Reason: PAIN Last Admin: 03/30/17 17:34 Dose: 0.5 mg Polyethylene Glycol (Miralax (For Daily Use) -) 17 gm PO BID [facility] Last Admin: 03/31/17 09:05 Dose: Not Given Pregabalin (Lyrica -) 50 mg PO BID [facility] Last Admin: 03/31/17 09:05 Dose: Not Given Propylthiouracil (Ptu -) 50 mg PO DAILY [facility] Last Admin: 03/31/17 09:05 Dose: Not Given Warfarin Sodium (Coumadin -) 3 mg PO DAILY@1800 [facility] Last Admin: 03/30/17 17:13 Dose: Not Given - Objective Vital Signs: Vital Signs Temperature 36.3 C L 03/31/17 09:00 Pulse Rate 102 H 03/31/17 10:17 Respiratory Rate 20 03/31/17 09:00 Blood Pressure 140/96 03/31/17 09:00 O2 Sat by Pulse Oximetry (%) 97 03/31/17 10:17 Constitutional: Yes: Well Nourished, No Distress, Calm Cardiovascular: Yes: Regular Rate and Rhythm. No: Gallop, Murmur, Rub Respiratory: Yes: Regular, CTA Bilaterally. No: Rales, Rhonchi, Wheezes Gastrointestinal: Yes: Normal Bowel Sounds, Soft. No: Distention, Tenderness Extremities: Yes: WNL Edema: No Labs: CBC, BMP 03/31/17 06:00 03/31/17 06:00 INR, PTT INR 2.40 (0.82-1.09) H 03/31/17 06:00 Problem List - Problems (1) Diverticulitis Code(s): K57.92 - DVTRCLI OF INTEST, PART UNSP, W/O PERF OR ABSCESS W/O BLEED (2) Pneumonia Code(s): J18.9 - PNEUMONIA, UNSPECIFIED ORGANISM (3) Vertebral fracture Code(s): [id number] - Qualifiers: Encounter type: initial encounter Fracture of vertebra location: lumbar Lumbar vertebra fracture level: unspecified lumbar vertebra Fracture type: closed Fracture morphology: other fracture Qualified Code(s): S32.008A - Other fracture of unspecified lumbar vertebra, initial encounter for closed fracture (4) Atrial fibrillation Code(s): I48.91 - UNSPECIFIED ATRIAL FIBRILLATION Qualifiers: Atrial fibrillation type: chronic Qualified Code(s): I48.2 - Chronic atrial fibrillation (5) Atypical chest pain Code(s): R07.89 - OTHER CHEST PAIN (6) COPD (chronic obstructive pulmonary disease) Code(s): J44.9 - CHRONIC OBSTRUCTIVE PULMONARY DISEASE, UNSPECIFIED (7) Congestive heart failure Code(s): I50.9 - HEART FAILURE, UNSPECIFIED Qualifiers: Congestive heart failure type: diastolic Congestive heart failure chronicity: chronic Qualified Code(s): I50.32 - Chronic diastolic (congestive ) heart failure (8) Diabetes mellitus Code(s): E11.9 - TYPE 2 DIABETES MELLITUS WITHOUT COMPLICATIONS (9) Hyperlipidemia Code(s): E78.5 - HYPERLIPIDEMIA, UNSPECIFIED (10) Multiple myeloma Code(s): C90.00 - MULTIPLE MYELOMA NOT HAVING ACHIEVED REMISSION Qualifiers: Multiple myeloma remission status: not in remission Qualified Code(s): C90.00 - Multiple myeloma not having achieved remission Assessment/Plan (1) Diverticulitis Assessment/Plan: -much improved -continue antibiotics per ID -continue IV hydration -advance to clear liquid diet today and monitor -suspect can advance to more solid diet in am Code(s): K57.92 - DVTRCLI OF INTEST, PART UNSP, W/O PERF OR ABSCESS W/O BLEED (2) Pneumonia Assessment/Plan: -with cough and seen on CT scan -continue zosyn currently -ID following and managing antibiotics -immunocompromised Code(s): J18.9 - PNEUMONIA, UNSPECIFIED ORGANISM (3) Vertebral fracture Assessment/Plan: -chronic -monitor Code(s): [id number] - Qualifiers: Encounter type: initial encounter Fracture of vertebra location: lumbar Lumbar vertebra fracture level: unspecified lumbar vertebra Fracture type: closed Fracture morphology: other fracture Qualified Code(s): S32.008A - Other fracture of unspecified lumbar vertebra, initial encounter for closed fracture (4) Atrial fibrillation Assessment/Plan: -rate controlled -therapeutic INR, continue to hold coumadin secondary to interaction with antibiotics -if INR drops can restart coumadin tomorrow Code(s): I48.91 - UNSPECIFIED ATRIAL FIBRILLATION Qualifiers: Atrial fibrillation type: chronic Qualified Code(s): I48.2 - Chronic atrial fibrillation (5) Atypical chest pain Assessment/Plan: -secondary to pneumonia and coughing Code(s): R07.89 - OTHER CHEST PAIN (6) COPD (chronic obstructive pulmonary disease) Assessment/Plan: -controlled -continue current management Code(s): J44.9 - CHRONIC OBSTRUCTIVE PULMONARY DISEASE, UNSPECIFIED (7) Congestive heart failure Assessment/Plan: -not in exacerbation -gentle hydration with close follow up Code(s): I50.9 - HEART FAILURE, UNSPECIFIED Qualifiers: Congestive heart failure type: diastolic Congestive heart failure chronicity: chronic Qualified Code(s): I50.32 - Chronic diastolic (congestive ) heart failure (8) Diabetes mellitus Assessment/Plan: -glucose low -will place on D5 1/2 NS currently -can change to NS if hyperglycemic Code(s): E11.9 - TYPE 2 DIABETES MELLITUS WITHOUT COMPLICATIONS (9) Hyperlipidemia Assessment/Plan: -hold lipitor currently Code(s): E78.5 - HYPERLIPIDEMIA, UNSPECIFIED (10) Multiple myeloma Assessment/Plan: -being followed by oncology as an outpatient Code(s): C90.00 - MULTIPLE MYELOMA NOT HAVING ACHIEVED REMISSION Qualifiers: Multiple myeloma remission status: not in remission Qualified Code(s): C90.00 - Multiple myeloma not having achieved remission
[2017-03-31] MEDS: morphine CARPU-JECT 8 MG/1 ML DISP.SYRIN IVPUSH PRN (13:30)
--- NOTE | 2017-03-31 14:54 | PN ---
Progress Note (short form) - Note Progress Note: continues to have flank/back pain Vital Signs Period Temp Pulse Resp BP Sys/Nieto Pulse Ox Last 24 Hr 97.3 F-98 F 85-113 20-20 130-140/74-96 95-100 cor-rrr llungs decreased bs at bases abd soft,nt ext no edema discomfort right flank radiating to back CBC, BMP 03/31/17 06:00 03/31/17 06:00 Microbiology 03/30/17 13:50 Blood - Peripheral Venous Blood Culture - Preliminary NO GROWTH OBTAINED AFTER 24 HOURS, INCUBATION TO CONTINUE FOR 4 DAYS. 03/30/17 13:45 Blood - Peripheral Venous Blood Culture - Preliminary NO GROWTH OBTAINED AFTER 24 HOURS, INCUBATION TO CONTINUE FOR 4 DAYS. 03/30/17 01:10 Urine - Urine Clean Catch Urine Culture - Final NO GROWTH OBTAINED a/p pneumonia diverticulitis compression fractures (lumbar and thoracic) multiple myeloma continue zosyn needs better control of back pain (fractures)
[2017-03-31] MEDS ORDERED: MAGNESIUM SULF 50% (8.12 MEQ/2 ML-1 GM VIAL) IVPB ONE (15:21)
[2017-03-31] MEDS ORDERED: INSULIN (NOVOLOG) ASPART 100 UNITS/ML 10ML VIAL ONE (17:02)
[2017-03-31] MEDS: WARFARIN NA 3 MG TABLET PO SCH (17:10)
[2017-03-31] MEDS: ATORVASTATIN CA 20 MG TABLET (FP) PO SCH (21:22)
[2017-03-31] MEDS: MONTELUKAST NA 10 MG TABLET PO SCH (21:22)
[2017-04-01] MEDS: PIPERACILLIN/TAZOB 3.375 GM 3.375 GM in DEXTROSE 5%-WATER - 100 ML IVPB SCH ×3 (02:22→18:03)
[2017-04-01] MEDS: morphine CARPU-JECT 8 MG/1 ML DISP.SYRIN IVPUSH PRN ×2 (02:26→10:48)
[2017-04-01] MEDS: INSULIN SLIDING SCALE (NOVOLOG) 1 VIAL SQ SCH ×4 (06:06→22:03)
[2017-04-01 08:06] LABS: BASO % 0.4 % (0-2.0); EOS % 1.5 % (0-4.5); HEMOGLOBIN 8.4 GM/dL (10.7-15.3); LYMPH % 19.9 % (8-40); MCH 27.5 pg (25.7-33.7); MCHC 30.9 g/dl (32.0-36.0); MEAN PLT VOLUME 8.3 fl (7.5-11.1); MONO % 10.4 % (3.8-10.2); NEUT % 67.8 % (42.8-82.8); PLATELET COUNT 196 K/MM3 (134-434); RBC 3.04 M/mm3 (3.60-5.2); RDW 20.5 % (11.6-15.6); WHITE BLOOD COUNT 6.5 K/mm3 (4.0-10.0)
[2017-04-01 08:26] LABS: INR 2.74 (0.82-1.09)
[2017-04-01 08:48] LABS: ANION GAP 7 (8-16); BLOOD UREA NITROGEN 4 mg/dL (7-18); CALCIUM 7.8 mg/dL (8.5-10.1); CHLORIDE 109 mmol/L (98-107); CO2 25 mmol/L (21-32); CREATININE 0.8 mg/dL (0.55-1.02); GLUCOSE,RANDOM 96 mg/dL (74-106); MAGNESIUM 1.7 mg/dL (1.8-2.4); PHOSPHOROUS 2.9 mg/dL (2.5-4.9); POTASSIUM 3.4 mmol/L (3.5-5.1); SODIUM 141 mmol/L (136-145)
[2017-04-01] MEDS: ALBUTEROL SO4 0.083% IH SOL 2.5 MG/3 ML VIAL.NEB. NEB PRN (08:53)
[2017-04-01] MEDS: IPRATROPIUM BR 0.02% 0.5 MG/2.5 ML VIAL.NEB. NEB PRN (08:53)
[2017-04-01] MEDS ORDERED: PT OWN MED DRAWER 7, Y5N ONE ×2 (09:21→17:15)
[2017-04-01] MEDS: DOCUSATE SODIUM 100 MG CAPSULE (FP) PO SCH ×2 (09:24→22:01)
[2017-04-01] MEDS: LORazepam 0.5 MG TABLET PO SCH ×2 (09:25→22:01)
[2017-04-01] MEDS: CHOLECALCIFEROL (VITAMIN D3) 1,000 UNIT TABLET (FP) PO SCH (09:25)
[2017-04-01] MEDS: PREGABALIN 50 MG CAPSULE PO SCH ×2 (09:25→22:02)
[2017-04-01] MEDS: METOPROLOL TARTRATE 25 MG TABLET (FP) PO SCH (09:25)
[2017-04-01] MEDS: dilTIAZem HCL 60 MG TABLET (FP) PO SCH ×2 (09:25→22:01)
[2017-04-01] MEDS: PROPYLTHIOURACIL 50 MG TABLET (UD) PO SCH (09:27)
[2017-04-01] MEDS: POLYETHYLENE GLYCOL 3350 119 GM BTL PO SCH ×2 (09:27→22:02)
[2017-04-01] MEDS ORDERED: MAGNESIUM SULF 50% (8.12 MEQ/2 ML-1 GM VIAL) IVPB ONE ×2 (12:15→17:45)
[2017-04-01] MEDS ORDERED: KCL 10 MEQ IVPB 10 MEQ/100 ML INFUS.BAG IVPB SCH (12:15)
--- NOTE | 2017-04-01 12:17 | PN ---
Progress Note, Physician Chief Complaint: Ms Sanchez says she is not feeling well today. She has chronic pain and difficult to ascertain if her pain is only chronic or abdominal pain. Denies cp and sob. - Current Medication List Current Medications: Active Medications Acetaminophen (Tylenol -) 650 mg PO Q12H PRN PRN Reason: PAIN Last Admin: 03/31/17 14:38 Dose: 650 mg Albuterol Sulfate (Ventolin 0.083% Nebulizer Soln -) 1 amp NEB Q6H PRN PRN Reason: SHORT OF BREATH/WHEEZING Last Admin: 04/01/17 08:53 Dose: 1 amp Atorvastatin Calcium (Lipitor -) 20 mg PO HS [facility] Last Admin: 03/31/17 21:22 Dose: 20 mg Cholecalciferol (Vitamin D3 -) 2,000 unit PO DAILY [facility] Last Admin: 04/01/17 09:25 Dose: 2,000 unit Diltiazem HCl (Cardizem -) 60 mg PO BID [facility] Last Admin: 04/01/17 09:25 Dose: 60 mg Docusate Sodium (Colace -) 100 mg PO BID [facility] Last Admin: 04/01/17 09:24 Dose: 100 mg Piperacillin Sod/Tazobactam (Sod 3.375 gm/ Dextrose) 100 mls @ 100 mls/hr IVPB Q8H-IV [facility] PRN Reason: Protocol Last Admin: 04/01/17 09:25 Dose: 100 mls/hr Dextrose/Sodium Chloride (D5-1/2ns -) 1,000 mls @ 50 mls/hr IV ASDIR [facility] Last Admin: 03/31/17 13:29 Dose: 50 mls/hr Potassium Chloride (Potassium Chloride 10 Meq Premix Ivpb -) 10 meq in 100 mls @ 100 mls/hr IVPB Q60M [facility] Stop: 04/01/17 14:14 Insulin Aspart (Novolog Vial Sliding Scale -) 1 vial SQ ACHS [facility] PRN Reason: Protocol Last Admin: 04/01/17 11:16 Dose: Not Given Ipratropium [place] (Atrovent 0.02% Nebulizer -) 1 amp NEB Q6H PRN PRN Reason: WHEEZING Last Admin: 04/01/17 08:53 Dose: 1 amp Lorazepam (Ativan -) 0.25 mg PO BID [facility] Last Admin: 04/01/17 09:25 Dose: 0.25 mg Magnesium Sulfate (Magnesium Sulfate) 2 gm IVPB ONCE ONE Stop: 04/01/17 12:16 Metoprolol Tartrate (Lopressor -) 25 mg PO DAILY [facility] Last Admin: 04/01/17 09:25 Dose: 25 mg Montelukast Sodium (Singulair -) 10 mg PO HS [facility] Last Admin: 03/31/17 21:22 Dose: 10 mg Oxycodone HCl (Roxicodone -) 5 mg PO Q4H PRN PRN Reason: PAIN Polyethylene Glycol (Miralax (For Daily Use) -) 17 gm PO BID [facility] Last Admin: 04/01/17 09:27 Dose: 17 gm Pregabalin (Lyrica -) 50 mg PO BID [facility] Last Admin: 04/01/17 09:25 Dose: 50 mg Propylthiouracil (Ptu -) 50 mg PO DAILY [facility] Last Admin: 04/01/17 09:27 Dose: 50 mg Warfarin Sodium (Coumadin -) 3 mg PO DAILY@1800 [facility] Last Admin: 03/31/17 17:10 Dose: 3 mg - Objective Vital Signs: Vital Signs Temperature 36.6 C 04/01/17 09:23 Pulse Rate 103 H 04/01/17 09:23 Respiratory Rate 20 04/01/17 09:23 Blood Pressure 129/70 04/01/17 09:23 O2 Sat by Pulse Oximetry (%) 100 04/01/17 09:00 Constitutional: Yes: Well Nourished, No Distress, Calm Cardiovascular: Yes: Regular Rate and Rhythm. No: Gallop, Murmur, Rub Respiratory: Yes: Regular, CTA Bilaterally. No: Rales, Rhonchi, Wheezes Gastrointestinal: Yes: Normal Bowel Sounds, Soft. No: Distention, Tenderness Extremities: Yes: WNL Edema: No Labs: CBC, BMP 04/01/17 06:00 04/01/17 06:00 INR, PTT INR 2.74 (0.82-1.09) H 04/01/17 06:00 Problem List - Problems (1) Diverticulitis Code(s): K57.92 - DVTRCLI OF INTEST, PART UNSP, W/O PERF OR ABSCESS W/O BLEED (2) Pneumonia Code(s): J18.9 - PNEUMONIA, UNSPECIFIED ORGANISM (3) Vertebral fracture Code(s): [id number] - Qualifiers: Encounter type: initial encounter Fracture of vertebra location: lumbar Lumbar vertebra fracture level: unspecified lumbar vertebra Fracture type: closed Fracture morphology: other fracture Qualified Code(s): S32.008A - Other fracture of unspecified lumbar vertebra, initial encounter for closed fracture (4) Atrial fibrillation Code(s): I48.91 - UNSPECIFIED ATRIAL FIBRILLATION Qualifiers: Atrial fibrillation type: chronic Qualified Code(s): I48.2 - Chronic atrial fibrillation (5) Atypical chest pain Code(s): R07.89 - OTHER CHEST PAIN (6) COPD (chronic obstructive pulmonary disease) Code(s): J44.9 - CHRONIC OBSTRUCTIVE PULMONARY DISEASE, UNSPECIFIED (7) Congestive heart failure Code(s): I50.9 - HEART FAILURE, UNSPECIFIED Qualifiers: Congestive heart failure type: diastolic Congestive heart failure chronicity: chronic Qualified Code(s): I50.32 - Chronic diastolic (congestive ) heart failure (8) Diabetes mellitus Code(s): E11.9 - TYPE 2 DIABETES MELLITUS WITHOUT COMPLICATIONS (9) Hyperlipidemia Code(s): E78.5 - HYPERLIPIDEMIA, UNSPECIFIED (10) Multiple myeloma Code(s): C90.00 - MULTIPLE MYELOMA NOT HAVING ACHIEVED REMISSION Qualifiers: Multiple myeloma remission status: not in remission Qualified Code(s): C90.00 - Multiple myeloma not having achieved remission Assessment/Plan (1) Diverticulitis Assessment/Plan: -suspect patient is improving, but difficult to ascertain if still having abdominal pain -will continue clear liquid diet today -trial of more solid diet tomorrow -continue zosyn per ID Code(s): K57.92 - DVTRCLI OF INTEST, PART UNSP, W/O PERF OR ABSCESS W/O BLEED (2) Pneumonia Assessment/Plan: -with cough and seen on CT scan -continue zosyn currently -ID following and managing antibiotics -immunocompromised Code(s): J18.9 - PNEUMONIA, UNSPECIFIED ORGANISM (3) Vertebral fracture Assessment/Plan: -chronic -monitor Code(s): [id number] - Qualifiers: Encounter type: initial encounter Fracture of vertebra location: lumbar Lumbar vertebra fracture level: unspecified lumbar vertebra Fracture type: closed Fracture morphology: other fracture Qualified Code(s): S32.008A - Other fracture of unspecified lumbar vertebra, initial encounter for closed fracture (4) Atrial fibrillation Assessment/Plan: -rate controlled -therapeutic INR -coumadin restarted Code(s): I48.91 - UNSPECIFIED ATRIAL FIBRILLATION Qualifiers: Atrial fibrillation type: chronic Qualified Code(s): I48.2 - Chronic atrial fibrillation (5) Atypical chest pain Assessment/Plan: -secondary to pneumonia and coughing Code(s): R07.89 - OTHER CHEST PAIN (6) COPD (chronic obstructive pulmonary disease) Assessment/Plan: -controlled -continue current management Code(s): J44.9 - CHRONIC OBSTRUCTIVE PULMONARY DISEASE, UNSPECIFIED (7) Congestive heart failure Assessment/Plan: -not in exacerbation -gentle hydration with close follow up Code(s): I50.9 - HEART FAILURE, UNSPECIFIED Qualifiers: Congestive heart failure type: diastolic Congestive heart failure chronicity: chronic Qualified Code(s): I50.32 - Chronic diastolic (congestive ) heart failure (8) Diabetes mellitus Assessment/Plan: -glucose low -will place on D5 1/2 NS currently -can change to NS if hyperglycemic Code(s): E11.9 - TYPE 2 DIABETES MELLITUS WITHOUT COMPLICATIONS (9) Hyperlipidemia Assessment/Plan: -hold lipitor currently Code(s): E78.5 - HYPERLIPIDEMIA, UNSPECIFIED (10) Multiple myeloma Assessment/Plan: -being followed by oncology as an outpatient Code(s): C90.00 - MULTIPLE MYELOMA NOT HAVING ACHIEVED REMISSION Qualifiers: Multiple myeloma remission status: not in remission Qualified Code(s): C90.00 - Multiple myeloma not having achieved remission
--- NOTE | 2017-04-01 12:51 | PN ---
Progress Note (short form) - Note Progress Note: resting comfortably, no complaints Vital Signs Period Temp Pulse Resp BP Sys/Nieto Pulse Ox Last 24 Hr 97.5 F-98 F 102-108 20-20 114-139/68-89 94-100 cor-rrr lungs decreased bs at bases abd soft,nt ext no edema CBC, BMP 04/01/17 06:00 04/01/17 06:00 Microbiology 03/30/17 13:50 Blood - Peripheral Venous Blood Culture - Preliminary NO GROWTH OBTAINED AFTER 24 HOURS, INCUBATION TO CONTINUE FOR 4 DAYS. 03/30/17 13:45 Blood - Peripheral Venous Blood Culture - Preliminary NO GROWTH OBTAINED AFTER 24 HOURS, INCUBATION TO CONTINUE FOR 4 DAYS. 03/30/17 01:10 Urine - Urine Clean Catch Urine Culture - Final NO GROWTH OBTAINED a/p pneumonia diverticulitis compression fractures (lumbar and thoracic) multiple myeloma continue zosyn day #3 appears more comfortable today
[2017-04-01] MEDS ORDERED: SODIUM PHOSPHATE/NA BIPHOS 133 ML ENEMA PR ONE (14:02)
[2017-04-01] MEDS: POTASSIUM CHLORIDE 10 MEQ in SODIUM CHLORIDE 100 ML IVPB SCH ×2 (15:14→16:45)
[2017-04-01] MEDS: DEXTROSE 5%-0.45% SALINE 1,000 ML IV SCH (15:16)
[2017-04-01] MEDS: oxyCODONE HCL 5 MG TABLET PO PRN (16:52)
[2017-04-01] MEDS: WARFARIN NA 3 MG TABLET PO SCH (18:03)
[2017-04-01] MEDS: MONTELUKAST NA 10 MG TABLET PO SCH (22:00)
[2017-04-01] MEDS: ATORVASTATIN CA 20 MG TABLET (FP) PO SCH (22:01)
[2017-04-02] MEDS: PIPERACILLIN/TAZOB 3.375 GM 3.375 GM in DEXTROSE 5%-WATER - 100 ML IVPB SCH ×3 (01:09→17:34)
[2017-04-02] MEDS: IPRATROPIUM BR 0.02% 0.5 MG/2.5 ML VIAL.NEB. NEB PRN (02:00)
[2017-04-02] MEDS: INSULIN SLIDING SCALE (NOVOLOG) 1 VIAL SQ SCH ×4 (06:17→21:13)
[2017-04-02] MEDS: ALBUTEROL SO4 0.083% IH SOL 2.5 MG/3 ML VIAL.NEB. NEB PRN (07:14)
[2017-04-02 07:45] LABS: BASO % 0.2 % (0-2.0); EOS % 1.4 % (0-4.5); HEMATOCRIT 25.4 % (32.4-45.2); HEMOGLOBIN 7.8 GM/dL (10.7-15.3); LYMPH % 20.7 % (8-40); MCH 27.5 pg (25.7-33.7); MCHC 30.7 g/dl (32.0-36.0); MEAN CELL VOLUME 89.5 fl (80-96); MEAN PLT VOLUME 8.5 fl (7.5-11.1); MONO % 11.4 % (3.8-10.2); NEUT % 66.3 % (42.8-82.8); PLATELET COUNT 184 K/MM3 (134-434); RBC 2.84 M/mm3 (3.60-5.2); RDW 20.8 % (11.6-15.6); WHITE BLOOD COUNT 6.4 K/mm3 (4.0-10.0)
[2017-04-02 08:04] LABS: INR 3.58 (0.82-1.09); PROTHROMBIN TIME (PATIENT) 40.4 SEC (9.98-11.88)
[2017-04-02 08:14] LABS: ADD RBC MORPHOLOGY YES
[2017-04-02 08:41] LABS: ANION GAP 7 (8-16); BLOOD UREA NITROGEN 4 mg/dL (7-18); CALCIUM 7.7 mg/dL (8.5-10.1); CHLORIDE 111 mmol/L (98-107); CO2 24 mmol/L (21-32); CREATININE 0.8 mg/dL (0.55-1.02); GLUCOSE,RANDOM 99 mg/dL (74-106); PHOSPHOROUS 2.9 mg/dL (2.5-4.9); SODIUM 142 mmol/L (136-145)
[2017-04-02] MEDS: LORazepam 0.5 MG TABLET PO SCH ×2 (09:59→21:13)
[2017-04-02] MEDS: PREGABALIN 50 MG CAPSULE PO SCH ×3 (10:00→21:52)
[2017-04-02] MEDS: dilTIAZem HCL 60 MG TABLET (FP) PO SCH ×2 (10:00→16:39)
[2017-04-02] MEDS: POLYETHYLENE GLYCOL 3350 119 GM BTL PO SCH ×2 (10:00→21:14)
[2017-04-02] MEDS: CHOLECALCIFEROL (VITAMIN D3) 1,000 UNIT TABLET (FP) PO SCH (10:00)
[2017-04-02] MEDS: DOCUSATE SODIUM 100 MG CAPSULE (FP) PO SCH ×2 (10:00→21:13)
[2017-04-02] MEDS: METOPROLOL TARTRATE 25 MG TABLET (FP) PO SCH (10:00)
[2017-04-02] MEDS: PROPYLTHIOURACIL 50 MG TABLET (UD) PO SCH (10:08)
--- NOTE | 2017-04-02 10:49 | PN ---
Progress Note, Physician Chief Complaint: Ms Sanchez says she is the same today. Says she is not feeling well but not clear. Complains of pain but cannot say exactly where it is or if it is better or worse. Does not complain of shortness of breath at first, but when told she looks short of breath she says she is. Denies n/v, still with decreased appetite but this is chronic. - Current Medication List Current Medications: Active Medications Acetaminophen (Tylenol -) 650 mg PO Q12H PRN PRN Reason: PAIN Last Admin: 03/31/17 14:38 Dose: 650 mg Albuterol Sulfate (Ventolin 0.083% Nebulizer Soln -) 1 amp NEB Q6H PRN PRN Reason: SHORT OF BREATH/WHEEZING Last Admin: 04/02/17 07:14 Dose: 1 amp Atorvastatin Calcium (Lipitor -) 20 mg PO HS [facility] Last Admin: 04/01/17 22:01 Dose: 20 mg Cholecalciferol (Vitamin D3 -) 2,000 unit PO DAILY [facility] Last Admin: 04/02/17 10:00 Dose: 2,000 unit Diltiazem HCl (Cardizem -) 60 mg PO BID [facility] Last Admin: 04/02/17 10:00 Dose: 60 mg Docusate Sodium (Colace -) 100 mg PO BID [facility] Last Admin: 04/02/17 10:00 Dose: 100 mg Piperacillin Sod/Tazobactam (Sod 3.375 gm/ Dextrose) 100 mls @ 100 mls/hr IVPB Q8H-IV [facility] PRN Reason: Protocol Last Admin: 04/02/17 10:00 Dose: 100 mls/hr Insulin Aspart (Novolog Vial Sliding Scale -) 1 vial SQ ACHS [facility] PRN Reason: Protocol Last Admin: 04/02/17 06:17 Dose: Not Given Ipratropium [place] (Atrovent 0.02% Nebulizer -) 1 amp NEB Q6H PRN PRN Reason: WHEEZING Last Admin: 04/02/17 02:00 Dose: 1 amp Lorazepam (Ativan -) 0.25 mg PO BID [facility] Last Admin: 04/02/17 09:59 Dose: Not Given Metoprolol Tartrate (Lopressor -) 25 mg PO DAILY [facility] Last Admin: 04/02/17 10:00 Dose: 25 mg Montelukast Sodium (Singulair -) 10 mg PO HS [facility] Last Admin: 04/01/17 22:00 Dose: 10 mg Oxycodone HCl (Roxicodone -) 5 mg PO Q4H PRN PRN Reason: PAIN Last Admin: 04/01/17 16:52 Dose: 5 mg Polyethylene Glycol (Miralax (For Daily Use) -) 17 gm PO BID [facility] Last Admin: 04/02/17 10:00 Dose: 17 gm Pregabalin (Lyrica -) 50 mg PO BID [facility] Last Admin: 04/02/17 10:00 Dose: 50 mg Propylthiouracil (Ptu -) 50 mg PO DAILY [facility] Last Admin: 04/02/17 10:08 Dose: 50 mg Warfarin Sodium (Coumadin -) 3 mg PO DAILY@1800 [facility] Last Admin: 04/01/17 18:03 Dose: 3 mg - Objective Vital Signs: Vital Signs Temperature 36.8 C 04/02/17 05:40 Pulse Rate 84 04/02/17 09:08 Respiratory Rate 22 04/02/17 05:40 Blood Pressure 126/77 04/02/17 05:40 O2 Sat by Pulse Oximetry (%) 95 04/02/17 09:08 Constitutional: Yes: Calm, Mild Distress Cardiovascular: Yes: Tachycardia, Pulse Irregular. No: Gallop, Murmur, Rub Respiratory: Yes: Rhonchi (slight, bibasilar), Tachypnea. No: Regular, CTA Bilaterally, Rales, Wheezes Gastrointestinal: Yes: Normal Bowel Sounds, Soft. No: Distention, Tenderness Extremities: Yes: WNL Edema: No Labs: CBC, BMP 04/02/17 06:00 04/02/17 06:00 INR, PTT INR 3.58 (0.82-1.09) H D 04/02/17 06:00 Problem List - Problems (1) Diverticulitis Code(s): K57.92 - DVTRCLI OF INTEST, PART UNSP, W/O PERF OR ABSCESS W/O BLEED (2) Pneumonia Code(s): J18.9 - PNEUMONIA, UNSPECIFIED ORGANISM (3) Vertebral fracture Code(s): [id number] - Qualifiers: Encounter type: initial encounter Fracture of vertebra location: lumbar Lumbar vertebra fracture level: unspecified lumbar vertebra Fracture type: closed Fracture morphology: other fracture Qualified Code(s): S32.008A - Other fracture of unspecified lumbar vertebra, initial encounter for closed fracture (4) Atrial fibrillation Code(s): I48.91 - UNSPECIFIED ATRIAL FIBRILLATION Qualifiers: Atrial fibrillation type: chronic Qualified Code(s): I48.2 - Chronic atrial fibrillation (5) Atypical chest pain Code(s): R07.89 - OTHER CHEST PAIN (6) COPD (chronic obstructive pulmonary disease) Code(s): J44.9 - CHRONIC OBSTRUCTIVE PULMONARY DISEASE, UNSPECIFIED (7) Congestive heart failure Code(s): I50.9 - HEART FAILURE, UNSPECIFIED Qualifiers: Congestive heart failure type: diastolic Congestive heart failure chronicity: chronic Qualified Code(s): I50.32 - Chronic diastolic (congestive ) heart failure (8) Diabetes mellitus Code(s): E11.9 - TYPE 2 DIABETES MELLITUS WITHOUT COMPLICATIONS (9) Hyperlipidemia Code(s): E78.5 - HYPERLIPIDEMIA, UNSPECIFIED (10) Multiple myeloma Code(s): C90.00 - MULTIPLE MYELOMA NOT HAVING ACHIEVED REMISSION Qualifiers: Multiple myeloma remission status: not in remission Qualified Code(s): C90.00 - Multiple myeloma not having achieved remission Assessment/Plan (1) Diverticulitis Assessment/Plan: -case d/w Dr Allen -will continue zosyn today, re-evaluate tomorrow -upon my seeing her patient was in distress but this resolved when ID saw her -will advance diet today and see if tolerates Code(s): K57.92 - DVTRCLI OF INTEST, PART UNSP, W/O PERF OR ABSCESS W/O BLEED (2) Pneumonia Assessment/Plan: -patient tachypneic this am but ABG showing no hypoxemia -chest x-ray reviewed, significant hiatal hernia -continue zosyn -stop IVFF Code(s): J18.9 - PNEUMONIA, UNSPECIFIED ORGANISM (3) Vertebral fracture Assessment/Plan: -chronic -monitor Code(s): [id number] - Qualifiers: Encounter type: initial encounter Fracture of vertebra location: lumbar Lumbar vertebra fracture level: unspecified lumbar vertebra Fracture type: closed Fracture morphology: other fracture Qualified Code(s): S32.008A - Other fracture of unspecified lumbar vertebra, initial encounter for closed fracture (4) Atrial fibrillation Assessment/Plan: -EKG and cardiac enzymes reviewed -tachycardic in the 100s -hold coumadin, INR supratherapeutic -consult cardiology, ? if tachypnea cardiac related Code(s): I48.91 - UNSPECIFIED ATRIAL FIBRILLATION Qualifiers: Atrial fibrillation type: chronic Qualified Code(s): I48.2 - Chronic atrial fibrillation (5) Atypical chest pain Assessment/Plan: -resolved Code(s): R07.89 - OTHER CHEST PAIN (6) COPD (chronic obstructive pulmonary disease) Assessment/Plan: -patient tachypneic as above but does not appear in exacerbation -continue current management -possible tachypnea secondary to pain Code(s): J44.9 - CHRONIC OBSTRUCTIVE PULMONARY DISEASE, UNSPECIFIED (7) Congestive heart failure Assessment/Plan: -d/c IVF this am Code(s): I50.9 - HEART FAILURE, UNSPECIFIED Qualifiers: Congestive heart failure type: diastolic Congestive heart failure chronicity: chronic Qualified Code(s): I50.32 - Chronic diastolic (congestive ) heart failure (8) Diabetes mellitus Assessment/Plan: -monitor now on diet -diabetic diet Code(s): E11.9 - TYPE 2 DIABETES MELLITUS WITHOUT COMPLICATIONS (9) Hyperlipidemia Assessment/Plan: -hold lipitor currently Code(s): E78.5 - HYPERLIPIDEMIA, UNSPECIFIED (10) Multiple myeloma Assessment/Plan: -being followed by oncology as an outpatient Code(s): C90.00 - MULTIPLE MYELOMA NOT HAVING ACHIEVED REMISSION Qualifiers: Multiple myeloma remission status: not in remission Qualified Code(s): C90.00 - Multiple myeloma not having achieved remission
[2017-04-02 11:22] LABS: ARTERIAL BLOOD GAS BASE EXCESS 2.2 meq/l (-2-2); ARTERIAL BLOOD GAS PCO2 41.6 mmHg (35-45); ARTERIAL BLOOD GAS pH 7.42 (7.35-7.45)
[2017-04-02 11:24] LABS: ALLENS TEST POSITIVE
[2017-04-02] MEDS ORDERED: INSULIN (NOVOLOG) ASPART 100 UNITS/ML 10ML VIAL ONE (11:57)
--- NOTE | 2017-04-02 12:42 | EKG ---
Test Reason : Blood Pressure : / mmHG Vent. Rate : 104 BPM Atrial Rate : 108 BPM P-R Int : 000 ms QRS Dur : 076 ms QT Int : 284 ms P-R-T Axes : 000 -16 027 degrees QTc Int : 373 ms ATRIAL FIBRILLATION WITH RAPID VENTRICULAR RESPONSE ABNORMAL ECG WHEN COMPARED WITH ECG OF 29-MAR-2017 17:48, NO SIGNIFICANT CHANGE WAS FOUND Confirmed by EMIGDIO BROWN MD ([id number]) on 04/02/2017 12:41:43 PM Referred By: Confirmed By:EMIGDIO BROWN MD
[2017-04-02 13:26] LABS: ACANTHOCYTES 2+; ANISOCYTOSIS 2+; MACROCYTOSIS 1+; OVALOCYTE 3+; PLATELET ESTIMATE NORMAL; TEAR DROP CELLS 1+
--- NOTE | 2017-04-02 14:38 | CON.CARD ---
Cardiology Consult (text) - Consultation Consultation Note: CC: afib 86 yo with h/o UTI diagnosed 2 days ago at separate ER visit, afib, diastolic CHF, htn, hl, h/o rheumatic fever, mild-moderate MR, Dm, meningioma, multiple myeloma, subclinical hyperthyroidism on PTU who p/w pna, diverticulitis - hospital course complicated by sob, afib with rvr. episode of sob this am. has been experiencing this sx intermittently. may be related to pain from abdomen which is intermittently severe. no le edema. no orthopnea. She denies pnd, palps, lightheadedness, bleeding, or transient neurologic symptoms. + fatigue She denies fevers, chills, sweats, nausea, vomiting, diarrhea, headache, congestion, visual disturbances. PO intake stable. PMhx/pshx: per hpi Family hx: sister with PPM Social hx: former smoker , no etoh or illicits ROS: Per HPI. Ambulatory Orders Atorvastatin Ca [Lipitor] 20 mg PO HS 08/14/16 Diltiazem [Cardizem -] 60 mg PO BID 08/14/16 Ergocalciferol (Vitamin D2) [Vitamin D2] 2,000 unit PO DAILY 08/14/16 Metformin HCl [Metformin HCl ER] 500 mg PO BID 08/14/16 Metoprolol Tartrate [Lopressor -] 25 mg PO DAILY 08/14/16 Montelukast Na [Singulair -] 10 mg PO HS 08/14/16 Pregabalin [Lyrica -] 50 mg PO BID 08/14/16 Propylthiouracil 50 mg PO DAILY 08/14/16 Albuterol 0.083% Nebulizer [place] [Ventolin 0.083% Nebulizer Soln -] 1 amp NEB Q6H PRN #30 amp 08/26/16 Ipratropium 0.02% Nebulizer [Atrovent 0.02% Nebulizer -] 1 amp NEB Q6H PRN #30 amp 08/26/16 Acetaminophen [Tylenol] 650 mg PO BID PRN 11/01/16 Lorazepam 0.25 mg PO BID 11/01/16 Potassium Chloride [K-Dur -] 20 meq PO BID #60 tab.ec 11/03/16 Warfarin Na [Coumadin -] 3 mg PO DAILY@1800 11/10/16 Docusate Sodium [Colace -] 100 mg PO BID #60 cap 11/14/16 Polyethylene Glycol 3350 [Miralax 119 gm Btl -] 17 gm PO BID #1 bottle 11/14/16 Oxycodone HCl 5 mg PO PRN 03/31/17 Current Medications Acetaminophen (Tylenol -) 650 mg PO Q12H PRN PRN Reason: PAIN Last Admin: 03/31/17 14:38 Dose: 650 mg Albuterol Sulfate (Ventolin 0.083% Nebulizer Soln -) 1 amp NEB Q6H PRN PRN Reason: SHORT OF BREATH/WHEEZING Last Admin: 04/02/17 07:14 Dose: 1 amp Atorvastatin Calcium (Lipitor -) 20 mg PO [facility] Last Admin: 04/01/17 22:01 Dose: 20 mg Cholecalciferol (Vitamin D3 -) 2,000 unit PO DAILY [facility] Last Admin: 04/02/17 10:00 Dose: 2,000 unit Diltiazem HCl (Cardizem -) 60 mg PO BID [facility] Last Admin: 04/02/17 10:00 Dose: 60 mg Docusate Sodium (Colace -) 100 mg PO BID [facility] Last Admin: 04/02/17 10:00 Dose: 100 mg Piperacillin Sod/Tazobactam (Sod 3.375 gm/ Dextrose) 100 mls @ 100 mls/hr IVPB Q8H-IV [facility] PRN Reason: Protocol Last Admin: 04/02/17 10:00 Dose: 100 mls/hr Insulin Aspart (Novolog Vial Sliding Scale -) 1 vial SQ ACHS [facility] PRN Reason: Protocol Last Admin: 04/02/17 12:09 Dose: Not Given Ipratropium [place] (Atrovent 0.02% Nebulizer -) 1 amp NEB Q6H PRN PRN Reason: WHEEZING Last Admin: 04/02/17 02:00 Dose: 1 amp Lorazepam (Ativan -) 0.25 mg PO BID [facility] Last Admin: 04/02/17 09:59 Dose: Not Given Metoprolol Tartrate (Lopressor -) 25 mg PO DAILY [facility] Last Admin: 04/02/17 10:00 Dose: 25 mg Montelukast Sodium (Singulair -) 10 mg PO [facility] Last Admin: 04/01/17 22:00 Dose: 10 mg Oxycodone HCl (Roxicodone -) 5 mg PO Q4H PRN PRN Reason: PAIN Last Admin: 04/01/17 16:52 Dose: 5 mg Polyethylene Glycol (Miralax (For Daily Use) -) 17 gm PO BID [facility] Last Admin: 04/02/17 10:00 Dose: 17 gm Pregabalin (Lyrica -) 50 mg PO BID [facility] Last Admin: 04/02/17 10:00 Dose: 50 mg Propylthiouracil (Ptu -) 50 mg PO DAILY [facility] Last Admin: 04/02/17 10:08 Dose: 50 mg Warfarin Sodium (Coumadin -) 3 mg PO DAILY@1800 [facility] Last Admin: 04/01/17 18:03 Dose: 3 mg Vital Signs - 24 hr 04/01/17 04/01/17 04/01/17 20:03 21:09 23:00 Temperature 98.6 F 98 F Pulse Rate 89 98 H Respiratory 20 20 20 Rate Blood Pressure 118/63 122/79 O2 Sat by Pulse 96 Oximetry (%) 04/02/17 04/02/17 04/02/17 05:40 09:00 09:08 Temperature 98.3 F Pulse Rate 101 H 84 Respiratory 22 Rate Blood Pressure 126/77 O2 Sat by Pulse 96 95 Oximetry (%) 04/02/17 10:00 Temperature 97.6 F Pulse Rate 113 H Respiratory 22 Rate Blood Pressure 123/64 O2 Sat by Pulse Oximetry (%) Intake & Output 03/31/17 04/01/17 04/02/17 04/03/17 07:59 07:59 07:59 07:59 Intake Total 1100 1300 1550 200 Balance 1100 1300 1550 200 Weight 128 lb 3.2 oz NAD, calm JVD flat, neck supple irregularly irregular, nl rate nl s1, s2 2/6 murmur at sternal border and apex dullness at left base, nl eff + bs soft nt nd ext without edema no cyanosis or clubbing + dp/pt no jaundice, diaphoresis CBC, BMP 04/02/17 06:00 04/02/17 06:00 Laboratory Tests 03/30/17 04/02/17 04/02/17 07:00 06:00 06:00 INR 3.58 H D ABG pH ABG pCO2 at Pt Temp ABG pO2 at Pt Temp Magnesium 2.0 Troponin I Total Protein 9.5 H Albumin 2.4 L 04/02/17 04/02/17 10:33 10:58 INR ABG pH 7.42 ABG pCO2 at Pt Temp 41.6 ABG pO2 at Pt Temp 122.0 H D Magnesium Troponin I < 0.02 Total Protein Albumin EKG: afib, 104 bpm no ischemic changes. Echo 06/2015: afib, nl LV/RV, mild-mod MR/TR, hi LAP, mild ao root dil MIBI 2012: no ST changes, probable breast artifact vs. AW ischemia. Nl EF PFTs 2013: no obstr, mild restr, mild decr DLCO reviewed ct scan. no signs of chf reviewed cxr from today. airspace opacities in nola and right lung. Afib - well controlled at "lenient rate control" targest on home regimen: DILTIAZEM (60 AM, 60 LUNCH, 30 PM) AND LOW DOSE TOPROL (25). (has h/o bradycardia and hypotension of ? etiology--stable long time on reduced med regimen). currently on diltiazem bid, will resume prior diltiazem tid dosing. . - cont coumadin (goal INR 2-3), - pain control per pmd. sob, diastolic CHF, copd - recently euvolemic off of bumex as outpatient. - multifactorial chronic sob (copd, diast chf, and ? related to very large hiatal hernia). now with worsened episode of sob. does not appear to be volume overloaded will hold off on resuming bumex at this time. - rate control as above - may be related to pain from diverticulitis, pain control per pmd. - pna per pmd, id mild-mod MR - functional, likely related to volume status - echo 06/2015 stable anemia/multiple myeloma - 2/2 multiple myeloma. heme following - complicated by vertebral fractures. currently on home hospice per cards office notes. - monitor on coumadin Emphysema H/O WHEEZING IN PAST--STABLE OF LATE
[2017-04-02] MEDS ORDERED: PT OWN MED DRAWER 7, Y5N ONE ×2 (17:15→20:28)
[2017-04-02] MEDS: oxyCODONE HCL 5 MG TABLET PO PRN (17:42)
--- NOTE | 2017-04-02 18:50 | PN ---
Progress Note (short form) - Note Progress Note: resting comfortably, less back pain less sob then this am she reports Vital Signs Period Temp Pulse Resp BP Sys/Nieto Pulse Ox Last 24 Hr 97.6 F-98.7 F 84-113 20-22 118-144/63-82 95-96 cor-rrr lungs decreased bs at bases abd soft,nt ext no edema CBC, BMP 04/02/17 06:00 04/02/17 06:00 Microbiology 03/30/17 13:50 Blood - Peripheral Venous Blood Culture - Preliminary NO GROWTH OBTAINED AFTER 72 HOURS, INCUBATION TO CONTINUE FOR 2 DAYS. 03/30/17 13:45 Blood - Peripheral Venous Blood Culture - Preliminary NO GROWTH OBTAINED AFTER 72 HOURS, INCUBATION TO CONTINUE FOR 2 DAYS. 03/30/17 01:10 Urine - Urine Clean Catch Urine Culture - Final NO GROWTH OBTAINED a/p pneumonia diverticulitis compression fractures (lumbar and thoracic) multiple myeloma continue zosyn day #4 consider advance diet hopefully switch to po antibiotics in am cxray difficult to read due to hernia and body habitus d/w dr tineo afib- per cardiology
[2017-04-02] MEDS: ATORVASTATIN CA 20 MG TABLET (FP) PO SCH (21:13)
[2017-04-02] MEDS: MONTELUKAST NA 10 MG TABLET PO SCH (21:13)
[2017-04-02] MEDS: dilTIAZem HCL 30 MG TABLET (FP) PO SCH (21:14)
[2017-04-02] MEDS ORDERED: oxyCODONE HCL 5 MG TABLET PO PRN (23:43)
[2017-04-03] MEDS: PIPERACILLIN/TAZOB 3.375 GM 3.375 GM in DEXTROSE 5%-WATER - 100 ML IVPB SCH ×3 (02:21→18:05)
[2017-04-03] MEDS: dilTIAZem HCL 60 MG TABLET (FP) PO SCH ×2 (05:30→13:34)
[2017-04-03] MEDS: INSULIN SLIDING SCALE (NOVOLOG) 1 VIAL SQ SCH ×4 (06:09→21:39)
[2017-04-03 06:45] LABS: BASO % 0.3 % (0-2.0); EOS % 2.1 % (0-4.5); HEMATOCRIT 25.6 % (32.4-45.2); HEMOGLOBIN 8.1 GM/dL (10.7-15.3); LYMPH % 21.4 % (8-40); MCH 27.9 pg (25.7-33.7); MCHC 31.6 g/dl (32.0-36.0); MEAN CELL VOLUME 88.2 fl (80-96); MEAN PLT VOLUME 8.6 fl (7.5-11.1); NEUT % 65.2 % (42.8-82.8); PLATELET COUNT 185 K/MM3 (134-434); RDW 20.2 % (11.6-15.6); WHITE BLOOD COUNT 5.3 K/mm3 (4.0-10.0)
[2017-04-03 06:58] LABS: PROTHROMBIN TIME (PATIENT) 47.4 SEC (9.98-11.88)
[2017-04-03 07:10] LABS: INR 4.19 (0.82-1.09)
[2017-04-03 09:15] LABS: ANION GAP 7 (8-16); BLOOD UREA NITROGEN 6 mg/dL (7-18); CALCIUM 8.3 mg/dL (8.5-10.1); CHLORIDE 111 mmol/L (98-107); CO2 25 mmol/L (21-32); CREATININE 0.8 mg/dL (0.55-1.02); GLUCOSE,RANDOM 74 mg/dL (74-106); MAGNESIUM 1.8 mg/dL (1.8-2.4); PHOSPHOROUS 3.3 mg/dL (2.5-4.9); POTASSIUM 3.9 mmol/L (3.5-5.1); SODIUM 143 mmol/L (136-145)
[2017-04-03] MEDS ORDERED: PANTOPRAZOLE 40 MG TABLET (FP) ONE (09:55)
[2017-04-03] MEDS ORDERED: HEPARIN NA (PORCINE) 5,000 UNITS/ML 1ML VIAL ONE (09:55)
[2017-04-03] MEDS ORDERED: METOPROLOL TARTRATE 50 MG TABLET (FP) ONE (09:55)
[2017-04-03] MEDS ORDERED: LOSARTAN POTASSIUM 50 MG TABLET (FP) ONE (09:56)
[2017-04-03] MEDS ORDERED: amLODIPine BESYLATE 10 MG TABLET (FP) ONE (09:56)
[2017-04-03] MEDS ORDERED: METRONIDAZOLE 500 MG PREMIXED 500 MG/100 ML MG IVPB ONE (09:57)
[2017-04-03] MEDS ORDERED: CEFTRIAXONE 1 G/50 ML PREMIX 50 ML IVPB ONE (09:57)
[2017-04-03] MEDS: PROPYLTHIOURACIL 50 MG TABLET (UD) PO SCH (10:52)
[2017-04-03] MEDS: POLYETHYLENE GLYCOL 3350 119 GM BTL PO SCH ×2 (10:55→21:34)
--- NOTE | 2017-04-03 10:58 | PN ---
Progress Note, Physician Chief Complaint: Ms Sanchez says she is having a better day today. Says she is tolerating her diet without problems. No sob or n/v. States she has diffuse pain that is unchanged. - Current Medication List Current Medications: Active Medications Acetaminophen (Tylenol -) 650 mg PO Q12H PRN PRN Reason: PAIN Albuterol Sulfate (Ventolin 0.083% Nebulizer Soln -) 1 amp NEB Q6H PRN PRN Reason: SHORT OF BREATH/WHEEZING Atorvastatin Calcium (Lipitor -) 20 mg PO HS [facility] Cholecalciferol (Vitamin D3 -) 2,000 unit PO DAILY [facility] Diltiazem HCl (Cardizem -) 30 mg PO HS [facility] Last Admin: 04/02/17 21:14 Dose: 30 mg Diltiazem HCl (Cardizem -) 60 mg PO 0600,1400 [facility] Last Admin: 04/03/17 05:30 Dose: 60 mg Docusate Sodium (Colace -) 100 mg PO BID [facility] Piperacillin Sod/Tazobactam (Sod 3.375 gm/ Dextrose) 100 mls @ 200 mls/hr IVPB Q8H-IV [facility] PRN Reason: Protocol Last Admin: 04/03/17 02:21 Dose: 200 mls/hr Insulin Aspart (Novolog Vial Sliding Scale -) 1 vial SQ ACHS [facility] PRN Reason: Protocol Last Admin: 04/03/17 06:09 Dose: Not Given Ipratropium [place] (Atrovent 0.02% Nebulizer -) 1 amp NEB Q6H PRN PRN Reason: WHEEZING Lorazepam (Ativan -) 0.25 mg PO BID [facility] Metoprolol Tartrate (Lopressor -) 25 mg PO DAILY [facility] Montelukast Sodium (Singulair -) 10 mg PO HS [facility] Oxycodone HCl (Roxicodone -) 10 mg PO Q4H PRN PRN Reason: PAIN Polyethylene Glycol (Miralax (For Daily Use) -) 17 gm PO BID [facility] Pregabalin (Lyrica -) 50 mg PO BID [facility] Propylthiouracil (Ptu -) 50 mg PO DAILY [facility] - Objective Vital Signs: Vital Signs Temperature 36.6 C 04/03/17 05:27 Pulse Rate 108 H 04/03/17 05:27 Respiratory Rate 20 04/03/17 05:27 Blood Pressure 124/83 04/03/17 05:27 O2 Sat by Pulse Oximetry (%) 97 04/02/17 21:00 Constitutional: Yes: Well Nourished, No Distress, Calm Cardiovascular: Yes: Tachycardia, Pulse Irregular. No: Gallop, Murmur, Rub Respiratory: Yes: Regular, CTA Bilaterally. No: Rales, Rhonchi, Wheezes Gastrointestinal: Yes: Normal Bowel Sounds, Soft. No: Distention, Tenderness Extremities: Yes: WNL Edema: No Labs: CBC, BMP 04/03/17 06:15 04/03/17 06:15 INR, PTT INR 4.19 (0.82-1.09) H* 04/03/17 06:15 Problem List - Problems (1) Diverticulitis Code(s): K57.92 - DVTRCLI OF INTEST, PART UNSP, W/O PERF OR ABSCESS W/O BLEED (2) Pneumonia Code(s): J18.9 - PNEUMONIA, UNSPECIFIED ORGANISM (3) Vertebral fracture Code(s): [id number] - Qualifiers: Encounter type: initial encounter Fracture of vertebra location: lumbar Lumbar vertebra fracture level: unspecified lumbar vertebra Fracture type: closed Fracture morphology: other fracture Qualified Code(s): S32.008A - Other fracture of unspecified lumbar vertebra, initial encounter for closed fracture (4) Atrial fibrillation Code(s): I48.91 - UNSPECIFIED ATRIAL FIBRILLATION Qualifiers: Atrial fibrillation type: chronic Qualified Code(s): I48.2 - Chronic atrial fibrillation (5) Atypical chest pain Code(s): R07.89 - OTHER CHEST PAIN (6) COPD (chronic obstructive pulmonary disease) Code(s): J44.9 - CHRONIC OBSTRUCTIVE PULMONARY DISEASE, UNSPECIFIED (7) Congestive heart failure Code(s): I50.9 - HEART FAILURE, UNSPECIFIED Qualifiers: Congestive heart failure type: diastolic Congestive heart failure chronicity: chronic Qualified Code(s): I50.32 - Chronic diastolic (congestive ) heart failure (8) Diabetes mellitus Code(s): E11.9 - TYPE 2 DIABETES MELLITUS WITHOUT COMPLICATIONS (9) Hyperlipidemia Code(s): E78.5 - HYPERLIPIDEMIA, UNSPECIFIED (10) Multiple myeloma Code(s): C90.00 - MULTIPLE MYELOMA NOT HAVING ACHIEVED REMISSION Qualifiers: Multiple myeloma remission status: not in remission Qualified Code(s): C90.00 - Multiple myeloma not having achieved remission Assessment/Plan (1) Diverticulitis Assessment/Plan: -resolving -tolerating regular diet Code(s): K57.92 - DVTRCLI OF INTEST, PART UNSP, W/O PERF OR ABSCESS W/O BLEED (2) Pneumonia Assessment/Plan: -case d/w Dr Allen -continue zosyn day 08/27 -improved Code(s): J18.9 - PNEUMONIA, UNSPECIFIED ORGANISM (3) Vertebral fracture Assessment/Plan: -chronic -monitor -however with uncontrolled pain -will consult oncology for guidance on pain control in MM Code(s): [id number] - Qualifiers: Encounter type: initial encounter Fracture of vertebra location: lumbar Lumbar vertebra fracture level: unspecified lumbar vertebra Fracture type: closed Fracture morphology: other fracture Qualified Code(s): S32.008A - Other fracture of unspecified lumbar vertebra, initial encounter for closed fracture (4) Atrial fibrillation Assessment/Plan: -EKG and cardiac enzymes reviewed -tachycardic in the 100s -hold coumadin, INR supratherapeutic -appreciate cardiology assistance and note reviewed Code(s): I48.91 - UNSPECIFIED ATRIAL FIBRILLATION Qualifiers: Atrial fibrillation type: chronic Qualified Code(s): I48.2 - Chronic atrial fibrillation (5) Atypical chest pain Assessment/Plan: -now right sided -rib pain secondary to multiple myeloma Code(s): R07.89 - OTHER CHEST PAIN (6) COPD (chronic obstructive pulmonary disease) Assessment/Plan: -patient tachypneic as above but does not appear in exacerbation -continue current management -possible tachypnea secondary to pain Code(s): J44.9 - CHRONIC OBSTRUCTIVE PULMONARY DISEASE, UNSPECIFIED (7) Congestive heart failure Assessment/Plan: -cardiology following and appreciate assistance Code(s): I50.9 - HEART FAILURE, UNSPECIFIED Qualifiers: Congestive heart failure type: diastolic Congestive heart failure chronicity: chronic Qualified Code(s): I50.32 - Chronic diastolic (congestive ) heart failure (8) Diabetes mellitus Assessment/Plan: -monitor now on diet -diabetic diet Code(s): E11.9 - TYPE 2 DIABETES MELLITUS WITHOUT COMPLICATIONS (9) Hyperlipidemia Assessment/Plan: -hold lipitor currently Code(s): E78.5 - HYPERLIPIDEMIA, UNSPECIFIED (10) Multiple myeloma Assessment/Plan: -oncology consult Code(s): C90.00 - MULTIPLE MYELOMA NOT HAVING ACHIEVED REMISSION Qualifiers: Multiple myeloma remission status: not in remission Qualified Code(s): C90.00 - Multiple myeloma not having achieved remission
[2017-04-03] MEDS: PREGABALIN 50 MG CAPSULE PO SCH ×2 (11:08→21:34)
[2017-04-03] MEDS: LORazepam 0.5 MG TABLET PO SCH ×2 (11:08→21:33)
[2017-04-03] MEDS: CHOLECALCIFEROL (VITAMIN D3) 1,000 UNIT TABLET (FP) PO SCH (11:11)
[2017-04-03] MEDS: DOCUSATE SODIUM 100 MG CAPSULE (FP) PO SCH ×2 (11:11→21:34)
[2017-04-03] MEDS: METOPROLOL TARTRATE 25 MG TABLET (FP) PO SCH (11:11)
[2017-04-03] MEDS: ALBUTEROL SO4 0.083% IH SOL 2.5 MG/3 ML VIAL.NEB. NEB PRN ×2 (12:10→21:40)
[2017-04-03] MEDS: IPRATROPIUM BR 0.02% 0.5 MG/2.5 ML VIAL.NEB. NEB PRN ×2 (12:10→21:40)
--- NOTE | 2017-04-03 12:15 | PN ---
Progress Note (short form) - Note Progress Note: s: no cp sob palps dizzy o: Vital Signs Period Temp Pulse Resp BP Sys/Nieto Pulse Ox Last 24 Hr 97.9 F-99.1 F 101-108 20-20 117-145/73-85 97 NAD, calm JVD flat, neck supple irregularly irregular, nl rate nl s1, s2 2/6 murmur at sternal border and apex dullness at left base, nl eff + bs soft nt nd ext without edema no cyanosis or clubbing no jaundice, diaphoresis Current Medications Generic Name Dose Route Start Last Admin Trade Name Freq PRN Reason Stop Dose Admin Acetaminophen 650 mg 04/02/17 23:43 Tylenol - PO Q12H PRN PAIN Albuterol Sulfate 1 amp 04/02/17 23:43 04/03/17 12:10 Ventolin 0.083% Nebulizer Soln - NEB 1 amp Q6H PRN Administration SHORT OF BREATH/WHEEZING Atorvastatin Calcium 20 mg 04/03/17 22:00 Lipitor - PO HS [facility] Cholecalciferol 2,000 unit 04/03/17 10:00 04/03/17 11:11 Vitamin D3 - PO 2,000 unit DAILY [facility] Administration Diltiazem HCl 30 mg 04/02/17 22:00 04/02/17 21:14 Cardizem - PO 30 mg HS [facility] Administration Diltiazem HCl 60 mg 04/02/17 14:39 04/03/17 05:30 Cardizem - PO 60 mg 0600,1400 [facility] Administration Docusate Sodium 100 mg 04/03/17 10:00 04/03/17 11:11 Colace - PO 100 mg BID [facility] Administration Piperacillin Sod/Tazobactam 100 mls @ 200 mls/hr 04/03/17 02:00 04/03/17 10: 52 Sod 3.375 gm/ Dextrose IVPB 200 mls/hr Q8H-IV [facility] Administration Protocol Insulin Aspart 1 vial 04/03/17 07:00 04/03/17 06:09 Novolog Vial Sliding Scale - SQ Not Given ACHS [facility] Protocol Ipratropium [place] 1 amp 04/02/17 23:43 04/03/17 12:10 Atrovent 0.02% Nebulizer - NEB 1 amp Q6H PRN Administration WHEEZING Lorazepam 0.25 mg 04/03/17 10:00 04/03/17 11:08 Ativan - PO 0.25 mg BID [facility] Administration Metoprolol Tartrate 25 mg 04/03/17 10:00 04/03/17 11:11 Lopressor - PO 25 mg DAILY [facility] Administration Montelukast Sodium 10 mg 04/03/17 22:00 Singulair - PO HS [facility] Oxycodone HCl 10 mg 04/03/17 10:57 Roxicodone - PO Q4H PRN PAIN Polyethylene Glycol 17 gm 04/03/17 10:00 04/03/17 10:55 Miralax (For Daily Use) - PO 17 grams BID [facility] Administration Pregabalin 50 mg 04/03/17 10:00 04/03/17 11:08 Lyrica - PO 50 mg BID [facility] Administration Propylthiouracil 50 mg 04/03/17 10:00 04/03/17 10:52 Ptu - PO 50 mg DAILY [facility] Administration CBC, BMP 04/03/17 06:15 04/03/17 06:15 EKG: afib, 104 bpm no ischemic changes. Echo 06/2015: afib, nl LV/RV, mild-mod MR/TR, hi LAP, mild ao root dil MIBI 2012: no ST changes, probable breast artifact vs. AW ischemia. Nl EF PFTs 2013: no obstr, mild restr, mild decr DLCO tele: afib, rate controlled a/p: Afib - controlled at "lenient rate control" targest on home regimen: DILTIAZEM (60 AM , 60 LUNCH, 30 PM) AND LOW DOSE TOPROL (25). (has h/o bradycardia and hypotension of ? etiology--stable long time on reduced med regimen). - cont coumadin (goal INR 2-3), - pain control per pmd. sob, diastolic CHF, copd - recently euvolemic off of bumex as outpatient. - multifactorial chronic sob (copd, diast chf, and ? related to very large hiatal hernia). now with worsened episode of sob. does not appear to be volume overloaded will hold off on resuming bumex at this time. - rate control as above - may be related to pain from diverticulitis, pain control per pmd. - pna per pmd, id mild-mod MR - functional, likely related to volume status - echo 06/2015 stable anemia/multiple myeloma - 2/2 multiple myeloma. heme following - complicated by vertebral fractures. currently on home hospice per cards office notes. - monitor on coumadin Emphysema H/O WHEEZING IN PAST--STABLE OF LATE
--- NOTE | 2017-04-03 12:44 | CONSULT ---
Consult Consult Specialty:: Oncology Reason for Consultation:: Multiple Myeloma. pain - History Source History Provided By: Family Member, Medical Record - Past Medical History Cardio/Vascular: Yes: AFIB, HTN, Hyperlipdemia Pulmonary: Yes: COPD Renal/: Yes: UTI (recent Hx of ESBL UTI) ...: No Endocrine: Yes: Diabetes Mellitus - Past Surgical History Past Surgical History: Yes: Joint Replacement - Alcohol/Substance Use Hx Alcohol Use: No History of Substance Use: reports: None - Smoking History Smoking history: Never smoked Have you smoked in the past 12 months: No Aproximately how many cigarettes per day: 0 If you are a former smoker, when did you quit?: 1989 - Social History ADL: Family Assistance Occupation: Retired History of Recent Travel: No Home Medications - Allergies Allergies/Adverse Reactions: Allergies Allergy/AdvReac Type Severity Reaction Status Date / Time Iodinated Contrast- Oral and Allergy Verified 03/29/17 14:36 IV Dye [IV Dye, Iodine Containing Contrast ] Sulfa (Sulfonamide Allergy Verified 03/29/17 14:36 Antibiotics) - Home Medications Home Medications: Ambulatory Orders Atorvastatin Ca [Lipitor] 20 mg PO HS 08/14/16 Diltiazem [Cardizem -] 60 mg PO BID 08/14/16 Ergocalciferol (Vitamin D2) [Vitamin D2] 2,000 unit PO DAILY 08/14/16 Metformin HCl [Metformin HCl ER] 500 mg PO BID 08/14/16 Metoprolol Tartrate [Lopressor -] 25 mg PO DAILY 08/14/16 Montelukast Na [Singulair -] 10 mg PO HS 08/14/16 Pregabalin [Lyrica -] 50 mg PO BID 08/14/16 Propylthiouracil 50 mg PO DAILY 08/14/16 Albuterol 0.083% Nebulizer [place] [Ventolin 0.083% Nebulizer Soln -] 1 amp NEB Q6H PRN #30 amp 08/26/16 Ipratropium 0.02% Nebulizer [Atrovent 0.02% Nebulizer -] 1 amp NEB Q6H PRN #30 amp 08/26/16 Acetaminophen [Tylenol] 650 mg PO BID PRN 11/01/16 Lorazepam 0.25 mg PO BID 11/01/16 Potassium Chloride [K-Dur -] 20 meq PO BID #60 tab.ec 11/03/16 Warfarin Na [Coumadin -] 3 mg PO DAILY@1800 11/10/16 Docusate Sodium [Colace -] 100 mg PO BID #60 cap 11/14/16 Polyethylene Glycol 3350 [Miralax 119 gm Btl -] 17 gm PO BID #1 bottle 11/14/16 Oxycodone HCl 5 mg PO PRN 03/31/17 Family Disease History - Family Disease History Family Disease History: [place]: Father, Mother, Sister, Other: Son (2 healthy), Daughter (4 healthy) Physical Exam Vital Signs: Vital Signs Temperature 97.9 F 04/03/17 05:27 Pulse Rate 108 H 04/03/17 05:27 Respiratory Rate 20 04/03/17 05:27 Blood Pressure 124/83 04/03/17 05:27 O2 Sat by Pulse Oximetry (%) 97 04/02/17 21:00 Labs: CBC, BMP 04/03/17 06:15 04/03/17 06:15 Assessment/Plan Multiple Myeloma , not in remission age indermintate compression fracture ( Thoracic new from 10/2016) pneumonia diverticulitis A fib -family did not want aggressive treatment, refused chemo in the past and now. -CBC acceptable , will transfuse for <8 -as per request, will order Myeloma labs and bone scan -compression fractures ( etiology: multifactorial) if pain is significant, with conservative measure, pain mgmt, will need to consider NSG, however, family wanted to be conservative with her treatments -rest per Primary -reportedly on home hospice -will follow
--- NOTE | 2017-04-03 13:21 | PN ---
Progress Note (short form) - Note Progress Note: improved oob in chair ate some oatmeal Vital Signs Period Temp Pulse Resp BP Sys/Nieto Pulse Ox Last 24 Hr 97.9 F-99.1 F 101-108 20-20 117-145/73-85 97 cor-rrr lungs decreased bs at base abd soft,nt ext no edema CBC, BMP 04/03/17 06:15 04/03/17 06:15 Microbiology 03/30/17 13:50 Blood - Peripheral Venous Blood Culture - Preliminary NO GROWTH OBTAINED AFTER 72 HOURS, INCUBATION TO CONTINUE FOR 2 DAYS. 03/30/17 13:45 Blood - Peripheral Venous Blood Culture - Preliminary NO GROWTH OBTAINED AFTER 72 HOURS, INCUBATION TO CONTINUE FOR 2 DAYS. 03/30/17 01:10 Urine - Urine Clean Catch Urine Culture - Final NO GROWTH OBTAINED a/p pneumonia diverticulitis compression fractures (lumbar and thoracic) multiple myeloma continue zosyn day #6 of 7 consider advance diet cxray difficult to read due to hernia and body habitus d/w dr tineo afib- per cardiology
[2017-04-03] MEDS: oxyCODONE HCL 5 MG TABLET PO PRN ×2 (14:57→21:56)
[2017-04-03] MEDS ORDERED: PT OWN MED DRAWER 7, Y5N ONE (17:59)
[2017-04-03] MEDS ORDERED: WARFARIN NA 3 MG TABLET PO SCH (18:00)
[2017-04-03] MEDS: MONTELUKAST NA 10 MG TABLET PO SCH (21:34)
[2017-04-03] MEDS: ATORVASTATIN CA 20 MG TABLET (FP) PO SCH (21:34)
[2017-04-03] MEDS: dilTIAZem HCL 30 MG TABLET (FP) PO SCH (21:34)
[2017-04-04] MEDS ORDERED: PT OWN MED DRAWER 7, Y5N ONE ×2 (00:57→09:26)
[2017-04-04] MEDS: PIPERACILLIN/TAZOB 3.375 GM 3.375 GM in DEXTROSE 5%-WATER - 100 ML IVPB SCH ×2 (01:12→09:58)
[2017-04-04] MEDS: dilTIAZem HCL 60 MG TABLET (FP) PO SCH ×3 (06:11→22:07)
[2017-04-04] MEDS: INSULIN SLIDING SCALE (NOVOLOG) 1 VIAL SQ SCH ×4 (06:53→22:06)
[2017-04-04 08:37] LABS: INR 3.31 (0.82-1.09); PROTHROMBIN TIME (PATIENT) 37.4 SEC (9.98-11.88)
[2017-04-04 08:48] LABS: ANION GAP 4 (8-16); BASO % 0.3 % (0-2.0); BLOOD UREA NITROGEN 6 mg/dL (7-18); CALCIUM 8.5 mg/dL (8.5-10.1); CHLORIDE 106 mmol/L (98-107); CO2 28 mmol/L (21-32); CREATININE 0.9 mg/dL (0.55-1.02); EOS % 1.4 % (0-4.5); GLUCOSE,RANDOM 83 mg/dL (74-106); HEMATOCRIT 26.8 % (32.4-45.2); HEMOGLOBIN 8.3 GM/dL (10.7-15.3); LYMPH % 21.7 % (8-40); MAGNESIUM 1.4 mg/dL (1.8-2.4); MCH 27.8 pg (25.7-33.7); MCHC 30.9 g/dl (32.0-36.0); MEAN CELL VOLUME 90.2 fl (80-96); MONO % 9.3 % (3.8-10.2); NEUT % 67.3 % (42.8-82.8); PHOSPHOROUS 4.1 mg/dL (2.5-4.9); PLATELET COUNT 202 K/MM3 (134-434); RBC 2.97 M/mm3 (3.60-5.2); RDW 19.7 % (11.6-15.6); SODIUM 138 mmol/L (136-145); WHITE BLOOD COUNT 9.3 K/mm3 (4.0-10.0)
--- NOTE | 2017-04-04 09:30 | PN ---
Progress Note, Physician Chief Complaint: sob History of Present Illness: still slightly sob diaphoretic. tired/weak no cp, palpitations. abd pain improved/resolved. - Current Medication List Current Medications: Active Medications Acetaminophen (Tylenol -) 650 mg PO Q12H PRN PRN Reason: PAIN Albuterol Sulfate (Ventolin 0.083% Nebulizer Soln -) 1 amp NEB Q6H PRN PRN Reason: SHORT OF BREATH/WHEEZING Last Admin: 04/03/17 21:40 Dose: 1 amp Atorvastatin Calcium (Lipitor -) 20 mg PO HS [facility] Last Admin: 04/03/17 21:34 Dose: 20 mg Cholecalciferol (Vitamin D3 -) 2,000 unit PO DAILY [facility] Last Admin: 04/03/17 11:11 Dose: 2,000 unit Diltiazem HCl (Cardizem -) 30 mg PO HS [facility] Last Admin: 04/03/17 21:34 Dose: 30 mg Diltiazem HCl (Cardizem -) 60 mg PO 0600,1400 [facility] Last Admin: 04/04/17 06:11 Dose: 60 mg Docusate Sodium (Colace -) 100 mg PO BID [facility] Last Admin: 04/03/17 21:34 Dose: 100 mg Piperacillin Sod/Tazobactam (Sod 3.375 gm/ Dextrose) 100 mls @ 200 mls/hr IVPB Q8H-IV [facility] PRN Reason: Protocol Last Admin: 04/04/17 01:12 Dose: 200 mls/hr Insulin Aspart (Novolog Vial Sliding Scale -) 1 vial SQ ACHS [facility] PRN Reason: Protocol Last Admin: 04/04/17 06:53 Dose: Not Given Ipratropium [place] (Atrovent 0.02% Nebulizer -) 1 amp NEB Q6H PRN PRN Reason: WHEEZING Last Admin: 04/03/17 21:40 Dose: 1 amp Lorazepam (Ativan -) 0.25 mg PO BID [facility] Last Admin: 04/03/17 21:33 Dose: Not Given Metoprolol Tartrate (Lopressor -) 25 mg PO DAILY [facility] Last Admin: 04/03/17 11:11 Dose: 25 mg Montelukast Sodium (Singulair -) 10 mg PO HS [facility] Last Admin: 04/03/17 21:34 Dose: 10 mg Oxycodone HCl (Roxicodone -) 10 mg PO Q4H PRN PRN Reason: PAIN Last Admin: 04/03/17 21:56 Dose: 10 mg Polyethylene Glycol (Miralax (For Daily Use) -) 17 gm PO BID [facility] Last Admin: 04/03/17 21:34 Dose: Not Given Pregabalin (Lyrica -) 50 mg PO BID [facility] Last Admin: 04/03/17 21:34 Dose: 50 mg Propylthiouracil (Ptu -) 50 mg PO DAILY [facility] Last Admin: 04/03/17 10:52 Dose: 50 mg - Objective Vital Signs: Vital Signs Temperature 98.8 F 04/04/17 02:00 Pulse Rate 103 H 04/04/17 02:00 Respiratory Rate 20 04/04/17 02:00 Blood Pressure 147/61 04/04/17 02:00 O2 Sat by Pulse Oximetry (%) 100 04/03/17 21:00 Constitutional: Yes: Well Nourished, No Distress, Calm Cardiovascular: Yes: Pulse Irregular, S1, S2. No: JVD, Gallop, Murmur Respiratory: Yes: Regular (not deep breaths), Diminished (diffusely), Rales ( scatttered). No: Wheezes Extremities: No: Cold Edema: No Neurological: Yes: Alert, Oriented. No: Seizure Psychiatric: No: Agitated Labs: CBC, BMP 04/04/17 05:48 04/04/17 05:48 INR, PTT INR 3.31 (0.82-1.09) H 04/04/17 05:48 - ....Imaging EKG: Other (tele: Afib, often to 120-140 bpm) Assessment/Plan EKG: afib, 104 bpm no ischemic changes. Echo 06/2015: afib, nl LV/RV, mild-mod MR/TR, hi LAP, mild ao root dil MIBI 2012: no ST changes, probable breast artifact vs. AW ischemia. Nl EF PFTs 2013: no obstr, mild restr, mild decr DLCO CT chest: severe coronary calcifications. consolidation LEANDRO/LLL. opacities RUL/ RLL ? atx vs scar. no effusions. upper lobe interolbular septal thickening = ? interstitial edema. dilated main PA c/w pulm HTN. a/p: sob, PNA: - recently euvolemic off of bumex as outpatient (bumex held when here 2017 with progressive myeloma bony pain and poor po, with dehydration and hypercalcemia) - multifactorial chronic sob (copd, diast chf, and ? related to very large hiatal hernia). - here with worsened sob than baseline, CT chest with findings of PNA - nonspecific findings of possible interstitial edema on CT (vs chronic interstitial changes--comparison to prior CT not described on report). in absence of pleural effusions or signs of volume on exam, will not agggressively diurese (hold diuretics) -PNA per pmd +/- ID - AF rate control as doing Afib - controlled at "lenient rate control" targest on home regimen: DILTIAZEM (60 AM , 60 LUNCH, 30 PM) AND LOW DOSE TOPROL (25). (has h/o bradycardia and hypotension of ? etiology--stable long time on reduced med regimen). - 04/04: currently HRs running 120-140 often, in setting of acute PNA this is likely physiologic. - has had no hypotensive episodes here. will incr diltiazem to 60 TID. - also note she is receiving lopressor 25 qd not toprol--hence early AM tachy is related to clearance of short-acting drug formulation. change back to toprol 25 qd - cont coumadin (goal INR 2-3), dose prn daily levels - pain control per pmd. mild-mod MR - functional, likely related to volume status - echo 06/2015 stable anemia/multiple myeloma - 2/2 multiple myeloma. heme following. - complicated by vertebral fractures. currently on home hospice per cards office notes. - counts stable vs baseline, monitor on coumadin Emphysema - per pmd +/- pulm
[2017-04-04] MEDS: METOPROLOL TARTRATE 25 MG TABLET (FP) PO SCH (09:59)
[2017-04-04] MEDS: DOCUSATE SODIUM 100 MG CAPSULE (FP) PO SCH ×2 (09:59→22:07)
[2017-04-04] MEDS: POLYETHYLENE GLYCOL 3350 119 GM BTL PO SCH ×2 (10:00→22:19)
[2017-04-04] MEDS: PREGABALIN 50 MG CAPSULE PO SCH ×2 (10:00→22:08)
[2017-04-04] MEDS: PROPYLTHIOURACIL 50 MG TABLET (UD) PO SCH (10:01)
[2017-04-04] MEDS: CHOLECALCIFEROL (VITAMIN D3) 1,000 UNIT TABLET (FP) PO SCH (10:02)
[2017-04-04] MEDS ORDERED: PIPERACILLIN/TAZOB 3.375 GM 3.375 GM in DEXTROSE 5%-WATER - 50 ML IVPB SCH (10:02)
--- NOTE | 2017-04-04 13:10 | PN ---
Progress Note, Physician Chief Complaint: No new complaints tolerating PO History of Present Illness: 86 year old female with past medical history of multiple myeloma, Afib, CHF, and diabetes who presents to the ED with complaints of cough, SOB, chest pain, and abdominal pain, W/U Shows acute Diverticulitis and Pneumonia, tolerating PO on IV Zosyn. - Current Medication List Current Medications: Active Medications Acetaminophen (Tylenol -) 650 mg PO Q12H PRN PRN Reason: PAIN Albuterol Sulfate (Ventolin 0.083% Nebulizer Soln -) 1 amp NEB Q6H PRN PRN Reason: SHORT OF BREATH/WHEEZING Last Admin: 04/03/17 21:40 Dose: 1 amp Atorvastatin Calcium (Lipitor -) 20 mg PO HS [facility] Last Admin: 04/03/17 21:34 Dose: 20 mg Cholecalciferol (Vitamin D3 -) 2,000 unit PO DAILY [facility] Last Admin: 04/04/17 10:02 Dose: 2,000 unit Diltiazem HCl (Cardizem -) 30 mg PO HS [facility] Last Admin: 04/03/17 21:34 Dose: 30 mg Diltiazem HCl (Cardizem -) 60 mg PO 0600,1400 [facility] Last Admin: 04/04/17 06:11 Dose: 60 mg Docusate Sodium (Colace -) 100 mg PO BID [facility] Last Admin: 04/04/17 09:59 Dose: 100 mg Piperacillin Sod/Tazobactam (Sod 3.375 gm/ Dextrose) 50 mls @ 100 mls/hr IVPB Q8H-IV [facility] PRN Reason: Protocol Insulin Aspart (Novolog Vial Sliding Scale -) 1 vial SQ ACHS [facility] PRN Reason: Protocol Last Admin: 04/04/17 11:27 Dose: Not Given Ipratropium [place] (Atrovent 0.02% Nebulizer -) 1 amp NEB Q6H PRN PRN Reason: WHEEZING Last Admin: 04/03/17 21:40 Dose: 1 amp Lorazepam (Ativan -) 0.25 mg PO BID [facility] Last Admin: 04/03/17 21:33 Dose: Not Given Metoprolol Tartrate (Lopressor -) 25 mg PO DAILY [facility] Last Admin: 04/04/17 09:59 Dose: 25 mg Montelukast Sodium (Singulair -) 10 mg PO HS [facility] Last Admin: 04/03/17 21:34 Dose: 10 mg Oxycodone HCl (Roxicodone -) 10 mg PO Q4H PRN PRN Reason: PAIN Last Admin: 04/03/17 21:56 Dose: 10 mg Polyethylene Glycol (Miralax (For Daily Use) -) 17 gm PO BID [facility] Last Admin: 04/04/17 10:00 Dose: 17 grams Pregabalin (Lyrica -) 50 mg PO BID [facility] Last Admin: 04/04/17 10:00 Dose: 50 mg Propylthiouracil (Ptu -) 50 mg PO DAILY [facility] Last Admin: 04/04/17 10:01 Dose: 50 mg - Objective Vital Signs: Vital Signs Temperature 98.8 F 04/04/17 10:00 Pulse Rate 110 H 04/04/17 10:00 Respiratory Rate 20 04/04/17 10:00 Blood Pressure 133/90 04/04/17 10:00 O2 Sat by Pulse Oximetry (%) 100 04/03/17 21:00 Elderly F sick looking , not in distress HEENT: Mm moist, pale, anemia +, no thrush NECK: No NVD No Bruit CHEST: Minimal basal Crepts CVS: S1S2 IR tachycardia ABD: Obese, Mild tender, Bs + EXT: Edema +, no calf tenderness [employer]: Non focal. Labs: CBC, BMP 04/04/17 05:48 04/04/17 05:48 INR, PTT INR 3.31 (0.82-1.09) H 04/04/17 05:48 Problem List - Problems (1) Acute diverticulitis Assessment/Plan: On IV abx no perforation, improving, minimal tenderness. Code(s): K57.92 - DVTRCLI OF INTEST, PART UNSP, W/O PERF OR ABSCESS W/O BLEED (2) Pneumonia Assessment/Plan: Chest X ray is suggestive of infiltrates, on IV abx, ID consult is on the case. Code(s): J18.9 - PNEUMONIA, UNSPECIFIED ORGANISM (3) Anemia Assessment/Plan: Chronic H/H is stable Code(s): D64.9 - ANEMIA, UNSPECIFIED Qualifiers: Anemia type: unspecified type Qualified Code(s): D64.9 - Anemia, unspecified (4) Chronic a-fib Assessment/Plan: On Diltiazem for rate control not on AC , Cardiology input appreciated.Intermittent episodes of RVR. Code(s): I48.2 - CHRONIC ATRIAL FIBRILLATION (5) T2DM (type 2 diabetes mellitus) Assessment/Plan: Optimize Glycemic control. Code(s): E11.9 - TYPE 2 DIABETES MELLITUS WITHOUT COMPLICATIONS Qualifiers: Diabetes mellitus complication status: with neurologic complications (6) Vertebral fracture Assessment/Plan: Lumbar vertebral compression fracture of undermined age , no compressive signs. Code(s): [id number] - Qualifiers: Encounter type: initial encounter Fracture of vertebra location: lumbar Lumbar vertebra fracture level: unspecified lumbar vertebra Fracture type: closed Fracture morphology: other fracture Qualified Code(s): S32.008A - Other fracture of unspecified lumbar vertebra, initial encounter for closed fracture (7) COPD (chronic obstructive pulmonary disease) Assessment/Plan: Cont Nebs treatment Code(s): J44.9 - CHRONIC OBSTRUCTIVE PULMONARY DISEASE, UNSPECIFIED
[2017-04-04] MEDS ORDERED: MAGNESIUM SULF 50% (8.12 MEQ/2 ML-1 GM VIAL) IVPB ONE ×2 (13:25→15:45)
[2017-04-04] MEDS: LORazepam 0.5 MG TABLET PO SCH (13:30)
[2017-04-04] MEDS ORDERED: dilTIAZem HCL 60 MG TABLET (FP) PO SCH (14:00)
[2017-04-04] MEDS: PIPERACILLIN/TAZOB 3.375 GM 3.375 GM in DEXTROSE 5%-WATER - 50 ML IVPB SCH (17:59)
[2017-04-04] MEDS: oxyCODONE HCL 5 MG TABLET PO PRN (20:19)
[2017-04-04] MEDS: IPRATROPIUM BR 0.02% 0.5 MG/2.5 ML VIAL.NEB. NEB PRN (20:40)
[2017-04-04] MEDS: ALBUTEROL SO4 0.083% IH SOL 2.5 MG/3 ML VIAL.NEB. NEB PRN (20:40)
[2017-04-04] MEDS: ATORVASTATIN CA 20 MG TABLET (FP) PO SCH (22:08)
[2017-04-04] MEDS: MONTELUKAST NA 10 MG TABLET PO SCH (22:08)
[2017-04-05] MEDS: PIPERACILLIN/TAZOB 3.375 GM 3.375 GM in DEXTROSE 5%-WATER - 50 ML IVPB SCH ×3 (01:30→17:04)
[2017-04-05] MEDS: LORazepam 0.5 MG TABLET PO SCH ×4 (01:31→21:30)
[2017-04-05] MEDS: ALBUTEROL SO4 0.083% IH SOL 2.5 MG/3 ML VIAL.NEB. NEB PRN ×3 (02:00→20:45)
[2017-04-05] MEDS: IPRATROPIUM BR 0.02% 0.5 MG/2.5 ML VIAL.NEB. NEB PRN ×2 (02:00→20:45)
[2017-04-05] MEDS ORDERED: FUROSEMIDE 40 MG/4 ML INJECTABLE VIAL IVPUSH ONE (02:26)
[2017-04-05] MEDS ORDERED: dilTIAZem HCL 50 MG/10 ML - 10 ML VIAL IVPUSH ONE (02:40)
--- NOTE | 2017-04-05 02:51 | HOSP ---
Subjective - Review of Symptoms Subjective: Rapid response called Pt had sob and tachycardia. Per RN pt appeared restless and uncomfortable. RN gave a neb treatment x 1 with little improvement Seen by attending and Lasix 40mg, labs and CXR ordered Pex General- alert non-toxic Hent- at/nc, nicholas Resp- mild increased wob, no cough, no cyanosis, diminished air entry, fine crackles at bases Cards- s1s2 heard, no JVD, no leg edema Neuro- alert, confused Assessment/Plan: She has diminished breath sounds diffusely, mild increased WOB Her EKG showed Afib w RVR HR 131 She is on Zosyn for PNA Labs pending CXR pending IV Lasix 40mg IV cardizem 10mg [place] placement Supplemental O2 Consider resuming Lasix 04/05/17 202AM After receiving IV lasix patient appeared more comfortable with improvement in wob Physical Examination Vital Signs: Vital Signs Temperature 98.7 F 04/05/17 02:00 Pulse Rate 91 H 04/05/17 02:00 Respiratory Rate 20 04/05/17 02:00 Blood Pressure 143/81 04/05/17 02:00 O2 Sat by Pulse Oximetry (%) 99 04/04/17 09:00 Labs: CBC, BMP 04/04/17 05:48 04/04/17 05:48
[2017-04-05 04:18] LABS: ANION GAP 8 (8-16); BLOOD UREA NITROGEN 7 mg/dL (7-18); CALCIUM 9.2 mg/dL (8.5-10.1); CHLORIDE 105 mmol/L (98-107); CO2 29 mmol/L (21-32); CREATININE 0.9 mg/dL (0.55-1.02); GLUCOSE,RANDOM 119 mg/dL (74-106); PHOSPHOROUS 3.6 mg/dL (2.5-4.9); POTASSIUM 3.8 mmol/L (3.5-5.1); SODIUM 142 mmol/L (136-145)
[2017-04-05 05:04] LABS: MAGNESIUM 1.3 mg/dL (1.8-2.4)
[2017-04-05] MEDS ORDERED: MAGNESIUM SULFATE IN WATER 2 GM/50 ML IVPB IVPB ONE (05:30)
[2017-04-05] MEDS: INSULIN SLIDING SCALE (NOVOLOG) 1 VIAL SQ SCH ×4 (06:37→22:31)
[2017-04-05] MEDS: dilTIAZem HCL 60 MG TABLET (FP) PO SCH ×3 (06:39→21:37)
[2017-04-05 07:24] LABS: BASO % 0.3 % (0-2.0); EOS % 1.2 % (0-4.5); HEMATOCRIT 23.5 % (32.4-45.2); HEMOGLOBIN 7.6 GM/dL (10.7-15.3); LYMPH % 8.6 % (8-40); MCH 28.6 pg (25.7-33.7); MCHC 32.5 g/dl (32.0-36.0); MEAN PLT VOLUME 8.6 fl (7.5-11.1); MONO % 8.4 % (3.8-10.2); NEUT % 81.5 % (42.8-82.8); PLATELET COUNT 164 K/MM3 (134-434); RBC 2.67 M/mm3 (3.60-5.2); RDW 19.6 % (11.6-15.6); WHITE BLOOD COUNT 5.6 K/mm3 (4.0-10.0)
[2017-04-05 07:31] LABS: INR 2.86 (0.82-1.09); PROTHROMBIN TIME (PATIENT) 32.3 SEC (9.98-11.88)
[2017-04-05 08:15] LABS: ANION GAP 5 (8-16); BLOOD UREA NITROGEN 7 mg/dL (7-18); CALCIUM 8.4 mg/dL (8.5-10.1); CHLORIDE 107 mmol/L (98-107); CO2 30 mmol/L (21-32); CREATININE 0.8 mg/dL (0.55-1.02); GLUCOSE,RANDOM 115 mg/dL (74-106); POTASSIUM 3.3 mmol/L (3.5-5.1); SODIUM 142 mmol/L (136-145)
--- NOTE | 2017-04-05 09:17 | PN ---
Progress Note, Physician Chief Complaint: sob History of Present Illness: acute resp distress/tachycardia overnight 1-2am. per RN she responded nicely to lasix 40 iv qd. cxr repeated--see assessment section. currently feels tired, denies ongoing sob at present. no cp, palpit, leg swelling ex cigs - Current Medication List Current Medications: Active Medications Acetaminophen (Tylenol -) 650 mg PO Q12H PRN PRN Reason: PAIN Albuterol Sulfate (Ventolin 0.083% Nebulizer Soln -) 1 amp NEB Q6H PRN PRN Reason: SHORT OF BREATH/WHEEZING Last Admin: 04/05/17 02:00 Dose: 1 amp Atorvastatin Calcium (Lipitor -) 20 mg PO HS [facility] Last Admin: 04/04/17 22:08 Dose: 20 mg Cholecalciferol (Vitamin D3 -) 2,000 unit PO DAILY [facility] Last Admin: 04/04/17 10:02 Dose: 2,000 unit Diltiazem HCl (Cardizem -) 60 mg PO TID [facility] Last Admin: 04/05/17 06:39 Dose: 60 mg Docusate Sodium (Colace -) 100 mg PO BID [facility] Last Admin: 04/04/17 22:07 Dose: 100 mg Piperacillin Sod/Tazobactam (Sod 3.375 gm/ Dextrose) 50 mls @ 100 mls/hr IVPB Q8H-IV [facility] PRN Reason: Protocol Last Admin: 04/05/17 01:30 Dose: 100 mls/hr Magnesium Sulfate/Dextrose (Magnesium 1gm/D5w -) 1 gm in 100 mls @ 100 mls/hr IVPB Q1H [facility] Stop: 04/05/17 10:29 Insulin Aspart (Novolog Vial Sliding Scale -) 1 vial SQ ACHS [facility] PRN Reason: Protocol Last Admin: 04/05/17 06:37 Dose: Not Given Ipratropium [place] (Atrovent 0.02% Nebulizer -) 1 amp NEB Q6H PRN PRN Reason: WHEEZING Last Admin: 04/05/17 02:00 Dose: 1 amp Lorazepam (Ativan -) 0.25 mg PO BID [facility] Last Admin: 04/05/17 03:03 Dose: Not Given Metoprolol Succinate (Toprol Xl -) 25 mg PO DAILY [facility] Montelukast Sodium (Singulair -) 10 mg PO [facility] Last Admin: 04/04/17 22:08 Dose: 10 mg Oxycodone HCl (Roxicodone -) 10 mg PO Q4H PRN PRN Reason: PAIN Last Admin: 04/04/17 20:19 Dose: 10 mg Polyethylene Glycol (Miralax (For Daily Use) -) 17 gm PO BID [facility] Last Admin: 04/04/17 22:19 Dose: 17 grams Pregabalin (Lyrica -) 50 mg PO BID [facility] Last Admin: 04/04/17 22:08 Dose: 50 mg Propylthiouracil (Ptu -) 50 mg PO DAILY [facility] Last Admin: 04/04/17 10:01 Dose: 50 mg - Objective Vital Signs: Vital Signs Temperature 98.7 F 04/05/17 05:56 Pulse Rate 95 H 04/05/17 06:45 Respiratory Rate 20 04/05/17 06:45 Blood Pressure 110/58 04/05/17 06:45 O2 Sat by Pulse Oximetry (%) 90 L 04/05/17 01:45 Constitutional: Yes: No Distress, Calm Eyes: No: Sclera Icterus HENT: No: Nasal Congestion Cardiovascular: Yes: Pulse Irregular, S1, S2, Other (PMI non diplaced). No: JVD , Gallop, Murmur Respiratory: Yes: Regular, Diminished (R base). No: Accessory Muscle Use, Rales , Wheezes Gastrointestinal: Yes: Normal Bowel Sounds, Soft. No: Tenderness Musculoskeletal: Yes: Other (No kyphosis) Extremities: No: Cold Edema: No Integumentary: No: Jaundice Neurological: Yes: Alert, Oriented (x3) Psychiatric: No: Agitated Labs: CBC, BMP 04/05/17 05:05 04/05/17 05:05 INR, PTT INR 2.86 (0.82-1.09) H 04/05/17 05:05 - ....Imaging EKG: Other (tele: afib good HRs (80s-100s), tachy briefly overnight during resp episode) Assessment/Plan EKG: afib, 104 bpm no ischemic changes. Echo 06/2015: afib, nl LV/RV, mild-mod MR/TR, hi LAP, mild ao root dil MIBI 2012: no ST changes, probable breast artifact vs. AW ischemia. Nl EF PFTs 2013: no obstr, mild restr, mild decr DLCO CT chest: severe coronary calcifications. consolidation LEANDRO/LLL. opacities RUL/ RLL ? atx vs scar. no effusions. upper lobe interolbular septal thickening = ? interstitial edema. dilated main PA c/w pulm HTN. a/p: acute hypoxic resp failure, PNA: - recently euvolemic off of bumex as outpatient (bumex held when here 2017 with progressive myeloma bony pain and poor po, with dehydration and hypercalcemia) - multifactorial chronic sob (copd, diast chf, and ? related to very large hiatal hernia). - here with worsened sob than baseline, CT chest with findings of PNA - nonspecific findings of possible interstitial edema on CT (vs chronic interstitial changes--comparison to prior CT not described on report). in absence of pleural effusions or signs of volume on exam, will not agggressively diurese (hold diuretics) - on abx for PNA - 04/05: overnight signif incr resp distress with very diminished breath sounds. rpt CXR remains prohibitively TDS sec to pt position/rotated, diffuse changes bilat not obviously different vs prior 04/02 (images reviewed). - given lasix 40 ivp, bun/creat ok, BP downtrended but remains >100 syst. - cont lasix today, change to PO (40 daily), monitor labs trend and watch for low BP - suppl O2, supportive care, abx per hospitalist - AF rate control as doing Afib - controlled at "lenient rate control" targest on home regimen: DILTIAZEM (60 AM , 60 LUNCH, 30 PM) AND LOW DOSE TOPROL (25). (has h/o bradycardia and hypotension of ? etiology--stable long time on reduced med regimen). - 04/04: currently HRs running 120-140 often, in setting of acute PNA this is likely physiologic. - has had no hypotensive episodes here. will incr diltiazem to 60 TID. - also note she is receiving lopressor 25 qd not toprol--hence early AM tachy is related to clearance of short-acting drug formulation. change back to toprol 25 qd - 04/05: HR now well controlled with above adjustments, cont same meds. - cont coumadin (goal INR 2-3), dose prn daily levels - pain control per pmd. mild-mod MR - functional, likely related to volume status - echo 06/2015 stable anemia/multiple myeloma - 2/2 multiple myeloma. heme following. - complicated by vertebral fractures. currently on home hospice per cards office notes. - counts stable vs baseline, monitor on coumadin Emphysema - per pmd +/- pulm
[2017-04-05] MEDS: MAGNESIUM 1GM/D5W - 1 GM/100 ML IVPB IVPB SCH ×2 (09:28→10:30)
[2017-04-05] MEDS ORDERED: POTASSIUM CHLORIDE TABS 20 MEQ TABLET.ER (FP) PO ONE (09:30)
[2017-04-05] MEDS ORDERED: PT OWN MED DRAWER 7, Y5N ONE (09:38)
[2017-04-05] MEDS: DOCUSATE SODIUM 100 MG CAPSULE (FP) PO SCH ×2 (09:40→21:31)
[2017-04-05] MEDS: PREGABALIN 50 MG CAPSULE PO SCH ×2 (09:40→21:38)
[2017-04-05] MEDS: PROPYLTHIOURACIL 50 MG TABLET (UD) PO SCH (09:40)
[2017-04-05] MEDS: CHOLECALCIFEROL (VITAMIN D3) 1,000 UNIT TABLET (FP) PO SCH (09:40)
[2017-04-05] MEDS: POLYETHYLENE GLYCOL 3350 119 GM BTL PO SCH ×2 (09:41→21:38)
[2017-04-05] MEDS ORDERED: METOPROLOL SUCCINATE 25 MG TAB.SR.24H (FP) PO SCH (10:00)
[2017-04-05] MEDS ORDERED: POTASSIUM CHLORIDE TABS 20 MEQ TABLET.ER (FP) PO SCH (10:00)
[2017-04-05] MEDS: oxyCODONE HCL 5 MG TABLET PO PRN (10:26)
[2017-04-05] MEDS: FUROSEMIDE 40 MG TABLET (FP) PO SCH (11:08)
--- NOTE | 2017-04-05 13:56 | PN ---
Progress Note, Physician Chief Complaint: Patient had an episode of SOB overnight, CXR Pulmonary congestion, Afib with RVR received IV lasix and Diltizem 10 mg , At present c/o back pain and SOB saturationg 96% on Venti mask, History of Present Illness: 86 year old female with past medical history of multiple myeloma, Afib, CHF, and diabetes who presents to the ED with complaints of cough, SOB, chest pain, and abdominal pain, W/U Shows acute Diverticulitis and Pneumonia, tolerating PO on IV Zosyn. - Current Medication List Current Medications: Active Medications Acetaminophen (Tylenol -) 650 mg PO Q12H PRN PRN Reason: PAIN Albuterol Sulfate (Ventolin 0.083% Nebulizer Soln -) 1 amp NEB Q6H PRN PRN Reason: SHORT OF BREATH/WHEEZING Last Admin: 04/05/17 02:00 Dose: 1 amp Atorvastatin Calcium (Lipitor -) 20 mg PO HS [facility] Last Admin: 04/04/17 22:08 Dose: 20 mg Cholecalciferol (Vitamin D3 -) 2,000 unit PO DAILY [facility] Last Admin: 04/05/17 09:40 Dose: 2,000 unit Diltiazem HCl (Cardizem -) 60 mg PO TID [facility] Last Admin: 04/05/17 13:03 Dose: 60 mg Docusate Sodium (Colace -) 100 mg PO BID [facility] Last Admin: 04/05/17 09:40 Dose: 100 mg Furosemide (Lasix -) 40 mg PO DAILY [facility] Last Admin: 04/05/17 11:08 Dose: 40 mg Piperacillin Sod/Tazobactam (Sod 3.375 gm/ Dextrose) 50 mls @ 100 mls/hr IVPB Q8H-IV [facility] PRN Reason: Protocol Last Admin: 04/05/17 09:32 Dose: 100 mls/hr Insulin Aspart (Novolog Vial Sliding Scale -) 1 vial SQ ACHS [facility] PRN Reason: Protocol Last Admin: 04/05/17 11:05 Dose: Not Given Ipratropium [place] (Atrovent 0.02% Nebulizer -) 1 amp NEB Q6H PRN PRN Reason: WHEEZING Last Admin: 04/05/17 02:00 Dose: 1 amp Lorazepam (Ativan -) 0.25 mg PO BID [facility] Last Admin: 04/05/17 09:39 Dose: 0.25 mg Metoprolol Succinate (Toprol Xl -) 25 mg PO DAILY [facility] Last Admin: 04/05/17 09:40 Dose: 25 mg Montelukast Sodium (Singulair -) 10 mg PO HS [facility] Last Admin: 04/04/17 22:08 Dose: 10 mg Oxycodone HCl (Roxicodone -) 10 mg PO Q4H PRN PRN Reason: PAIN Last Admin: 04/05/17 10:26 Dose: 10 mg Polyethylene Glycol (Miralax (For Daily Use) -) 17 gm PO BID [facility] Last Admin: 04/05/17 09:41 Dose: 17 grams Pregabalin (Lyrica -) 50 mg PO BID [facility] Last Admin: 04/05/17 09:40 Dose: 50 mg Propylthiouracil (Ptu -) 50 mg PO DAILY [facility] Last Admin: 04/05/17 09:40 Dose: 50 mg - Objective Vital Signs: Vital Signs Temperature 98.8 F 04/05/17 10:00 Pulse Rate 100 H 04/05/17 10:00 Respiratory Rate 22 04/05/17 10:00 Blood Pressure 100/60 04/05/17 10:00 O2 Sat by Pulse Oximetry (%) 90 L 04/05/17 01:45 Elderly F sick looking , in respiratory distressdistress HEENT: Mm moist, pale, anemia +, no thrush NECK: No NVD No Bruit CHEST: b/l diffuse basal Crepts CVS: S1S2 IR tachycardia ABD: Obese, Mild tender, Bs + EXT: Trace Edema , no calf tenderness, pulses + [employer]: Non focal. Labs: CBC, BMP 04/05/17 05:05 04/05/17 05:05 INR, PTT INR 2.86 (0.82-1.09) H 04/05/17 05:05 Problem List - Problems (1) Acute diverticulitis Assessment/Plan: On IV abx no perforation,pain abd improving, minimal tenderness. Code(s): K57.92 - DVTRCLI OF INTEST, PART UNSP, W/O PERF OR ABSCESS W/O BLEED (2) Pneumonia Assessment/Plan: Chest X ray is suggestive of infiltrates, on IV Zozyn, TWBC trended normal, but patient is febrile discussed with ID consult recommenced current abx F/U U and blood culture. Code(s): J18.9 - PNEUMONIA, UNSPECIFIED ORGANISM (3) Anemia Assessment/Plan: Chronic H/H 7.8 almost at base line Code(s): D64.9 - ANEMIA, UNSPECIFIED Qualifiers: Anemia type: unspecified type Qualified Code(s): D64.9 - Anemia, unspecified (4) Chronic a-fib Assessment/Plan: On Diltiazem for rate control not on AC , Cardiology input appreciated.Intermittent episodes of RVR.last night developed RVR 130s still tachycardiac will call cardiology to re valuate. Partly can be due to fever will cont Tylenol for pain and fever. Code(s): I48.2 - CHRONIC ATRIAL FIBRILLATION (5) T2DM (type 2 diabetes mellitus) Assessment/Plan: Optimize Glycemic control. Code(s): E11.9 - TYPE 2 DIABETES MELLITUS WITHOUT COMPLICATIONS Qualifiers: Diabetes mellitus complication status: with neurologic complications (6) Vertebral fracture Assessment/Plan: Lumbar vertebral compression fracture of undermined age , no compressive signs. Code(s): IJQ5699 - Qualifiers: Encounter type: initial encounter Fracture of vertebra location: lumbar Lumbar vertebra fracture level: unspecified lumbar vertebra Fracture type: closed Fracture morphology: other fracture Qualified Code(s): S32.008A - Other fracture of unspecified lumbar vertebra, initial encounter for closed fracture (7) COPD (chronic obstructive pulmonary disease) Assessment/Plan: Cont Nebs treatment Code(s): J44.9 - CHRONIC OBSTRUCTIVE PULMONARY DISEASE, UNSPECIFIED (8) SOB (shortness of breath) Assessment/Plan: Due to Pulmonary congestion responded to IV lasix F/U BMP and clinical course Rpt abg and Pulmonary consult. Code(s): R06.02 - SHORTNESS OF BREATH (9) Hypokalemia Assessment/Plan: Repleted Code(s): E87.6 - HYPOKALEMIA (10) Hypomagnesemia Assessment/Plan: Recived Mag So4 F/U Sr magnesium. Code(s): E83.42 - HYPOMAGNESEMIA
[2017-04-05] MEDS: ACETAMINOPHEN 325 MG TABLET (FP) PO PRN (14:00)
[2017-04-05] MEDS ORDERED: POTASSIUM CHLORIDE ORAL LIQUID 20 MEQ/15 ML PO ONE (15:30)
[2017-04-05] MEDS ORDERED: METOPROLOL SUCCINATE 25 MG TAB.SR.24H (FP) PO ONE (17:00)
[2017-04-05 18:00] LABS: URINE APPEARANCE CLOUDY; URINE BILIRUBIN NEGATIVE (NEGATIVE); URINE BLOOD 2+ (NEGATIVE); URINE COLOR AMBER; URINE GLUCOSE (UA) 1+ (NEGATIVE); URINE KETONE NEGATIVE (NEGATIVE); URINE LEUK ESTERASE NEGATIVE (NEGATIVE); URINE NITRITE NEGATIVE (NEGATIVE); URINE PROTEIN 1+ (NEGATIVE); URINE UROBILINOGEN NEGATIVE mg/dL (0.2-1.0)
[2017-04-05 18:02] LABS: EPI CELLS RARE /HPF (FEW); URINE BACTERIA RARE /hpf (NONE SEEN); URINE MUCUS RARE
[2017-04-05 18:16] LABS: MAGNESIUM 1.3 mg/dL (1.8-2.4)
--- NOTE | 2017-04-05 21:12 | PN ---
Progress Note, Physician History of Present Illness: C/O back pain Temp elevation noted tachypneic on mask - Current Medication List Current Medications: Active Medications Acetaminophen (Tylenol -) 650 mg PO Q12H PRN PRN Reason: PAIN Last Admin: 04/05/17 14:00 Dose: 650 mg Albuterol Sulfate (Ventolin 0.083% Nebulizer Soln -) 1 amp NEB Q6H PRN PRN Reason: SHORT OF BREATH/WHEEZING Last Admin: 04/05/17 14:28 Dose: 1 amp Atorvastatin Calcium (Lipitor -) 20 mg PO HS [facility] Last Admin: 04/04/17 22:08 Dose: 20 mg Cholecalciferol (Vitamin D3 -) 2,000 unit PO DAILY [facility] Last Admin: 04/05/17 09:40 Dose: 2,000 unit Diltiazem HCl (Cardizem -) 60 mg PO TID [facility] Last Admin: 04/05/17 13:03 Dose: 60 mg Docusate Sodium (Colace -) 100 mg PO BID [facility] Last Admin: 04/05/17 09:40 Dose: 100 mg Furosemide (Lasix -) 40 mg PO DAILY [facility] Last Admin: 04/05/17 11:08 Dose: 40 mg Piperacillin Sod/Tazobactam (Sod 3.375 gm/ Dextrose) 50 mls @ 100 mls/hr IVPB Q8H-IV [facility] PRN Reason: Protocol Last Admin: 04/05/17 17:04 Dose: 100 mls/hr Insulin Aspart (Novolog Vial Sliding Scale -) 1 vial SQ ACHS [facility] PRN Reason: Protocol Last Admin: 04/05/17 17:14 Dose: Not Given Ipratropium [place] (Atrovent 0.02% Nebulizer -) 1 amp NEB Q6H PRN PRN Reason: WHEEZING Last Admin: 04/05/17 02:00 Dose: 1 amp Lorazepam (Ativan -) 0.25 mg PO BID [facility] Last Admin: 04/05/17 09:39 Dose: 0.25 mg Metoprolol Succinate (Toprol Xl -) 50 mg PO DAILY [facility] Montelukast Sodium (Singulair -) 10 mg PO HS [facility] Last Admin: 04/04/17 22:08 Dose: 10 mg Oxycodone HCl (Roxicodone -) 10 mg PO Q4H PRN PRN Reason: PAIN Last Admin: 04/05/17 10:26 Dose: 10 mg Polyethylene Glycol (Miralax (For Daily Use) -) 17 gm PO BID [facility] Last Admin: 04/05/17 09:41 Dose: 17 grams Pregabalin (Lyrica -) 50 mg PO BID [facility] Last Admin: 04/05/17 09:40 Dose: 50 mg Propylthiouracil (Ptu -) 50 mg PO DAILY [facility] Last Admin: 04/05/17 09:40 Dose: 50 mg - Objective Vital Signs: Vital Signs Temperature 97.4 F L 04/05/17 20:51 Pulse Rate 118 H 04/05/17 20:51 Respiratory Rate 22 04/05/17 20:52 Blood Pressure 90/43 04/05/17 20:51 O2 Sat by Pulse Oximetry (%) 100 04/05/17 20:52 Cardiovascular: Yes: Regular Rate and Rhythm, S1 Respiratory: Yes: Rhonchi Gastrointestinal: Yes: Normal Bowel Sounds, Soft Edema: No Edema: RUE: Trace Labs: CBC, BMP 04/05/17 05:05 04/05/17 05:05 INR, PTT INR 2.86 (0.82-1.09) H 04/05/17 05:05 Assessment/Plan Pneumonia Recurrent fever Myeloma Compression fracture Reculture Continue zosyn
[2017-04-05] MEDS: ATORVASTATIN CA 20 MG TABLET (FP) PO SCH (21:31)
[2017-04-05] MEDS: MONTELUKAST NA 10 MG TABLET PO SCH (21:31)
[2017-04-05] MEDS ORDERED: FUROSEMIDE 40 MG/4 ML INJECTABLE VIAL ONE (23:03)
--- NOTE | 2017-04-05 23:08 | HOSP ---
Physical Examination Vital Signs: Vital Signs Temperature 97.4 F L 04/05/17 20:51 Pulse Rate 118 H 04/05/17 20:51 Respiratory Rate 22 04/05/17 20:52 Blood Pressure 128/83 04/05/17 20:51 O2 Sat by Pulse Oximetry (%) 100 04/05/17 20:52 Labs: CBC, BMP 04/05/17 05:05 04/05/17 05:05 Hospitalist Encounter Assessment: I was paged by the nurse to evaluate this patient Patient was tachypneic and AFIB @ rate of [address] Edouard was contacted an recommend 60 mg po diltiazem Patient seems congested to me whith crackles on phusical exam and IV 20 Lasix was ordered . ABG was ordered. Well revaluate the patient through out the night . Vitals : Temp 101, BP 145/68 , P 140 , o2 sat 99% PE: Head NC/AT Lung B/L base crackles Heart : AFIB @ 140 Abdomen: Soft non distended, non tender, +BS Legs : +2 pulse, no edema . Visit type - Emergency Visit Emergency Visit: Yes ED Registration Date: 03/29/17 Care time: The patient presented to the Emergency Department on the above date and was hospitalized for further evaluation of their emergent condition. - New Patient This patient is new to me today: Yes Date on this admission: 04/05/17 - Critical Care Critical Care patient: No
[2017-04-05] MEDS ORDERED: dilTIAZem HCL 60 MG TABLET (FP) PO ONE (23:15)
[2017-04-05] MEDS ORDERED: FUROSEMIDE 100 MG/10 ML INJECTABLE VIAL IVPB ONE (23:15)
[2017-04-05 23:22] LABS: ARTERIAL BLD GAS O2 SATURATION 97.2 % (90-98.9); ARTERIAL BLOOD GAS BASE EXCESS 11.2 meq/l (-2-2); ARTERIAL BLOOD GAS PO2 97.5 mmHg (68-100); ARTERIAL BLOOD GAS pH 7.37 (7.35-7.45)
[2017-04-05 23:25] LABS: ALLENS TEST POSITIVE
[2017-04-05 23:27] LABS: ARTERIAL BLOOD GAS PCO2 67.6 mmHg (35-45)
[2017-04-05] MEDS: ACETAMINOPHEN 1000 MG/100 ML VIAL (NON FORMULARY) IVPB PRN (23:56)
[2017-04-06] MEDS: ACETYLCYSTEINE 20% 200MG/ML 30 ML VIAL *FOR ORAL / INH USE ONLY NEB SCH ×5 (01:53→20:45)
[2017-04-06] MEDS: ALBUTEROL SO4 0.083% IH SOL 2.5 MG/3 ML VIAL.NEB. NEB PRN ×5 (01:53→20:45)
[2017-04-06] MEDS: guaiFENesin 600 MG TABLET.ER (FP) PO SCH ×3 (02:36→22:23)
[2017-04-06] MEDS: PIPERACILLIN/TAZOB 3.375 GM 3.375 GM in DEXTROSE 5%-WATER - 50 ML IVPB SCH ×3 (02:36→17:16)
[2017-04-06 04:11] LABS: ANION GAP 3 (8-16); BLOOD UREA NITROGEN 7 mg/dL (7-18); CALCIUM 8.3 mg/dL (8.5-10.1); CHLORIDE 104 mmol/L (98-107); CO2 35 mmol/L (21-32); CREATININE 1.1 mg/dL (0.55-1.02); GLUCOSE,RANDOM 125 mg/dL (74-106); POTASSIUM 3.8 mmol/L (3.5-5.1); SODIUM 142 mmol/L (136-145)
[2017-04-06] MEDS: INSULIN SLIDING SCALE (NOVOLOG) 1 VIAL SQ SCH ×4 (07:00→22:27)
[2017-04-06] MEDS: dilTIAZem HCL 60 MG TABLET (FP) PO SCH ×3 (07:26→22:23)
[2017-04-06 08:29] LABS: BASO % 0.1 % (0-2.0); EOS % 1.6 % (0-4.5); HEMATOCRIT 24.9 % (32.4-45.2); HEMOGLOBIN 7.7 GM/dL (10.7-15.3); LYMPH % 12.5 % (8-40); MCH 27.7 pg (25.7-33.7); MCHC 31.1 g/dl (32.0-36.0); MEAN CELL VOLUME 89.3 fl (80-96); MONO % 12.8 % (3.8-10.2); PLATELET COUNT 158 K/MM3 (134-434); RBC 2.79 M/mm3 (3.60-5.2); WHITE BLOOD COUNT 5.5 K/mm3 (4.0-10.0)
[2017-04-06] MEDS ORDERED: PT OWN MED DRAWER 7, Y5N ONE (09:30)
[2017-04-06] MEDS: METOPROLOL SUCCINATE 50 MG TAB.SR.24H (FP) PO SCH (09:58)
[2017-04-06] MEDS: DOCUSATE SODIUM 100 MG CAPSULE (FP) PO SCH ×2 (09:58→22:38)
[2017-04-06] MEDS: CHOLECALCIFEROL (VITAMIN D3) 1,000 UNIT TABLET (FP) PO SCH (09:58)
[2017-04-06] MEDS: FUROSEMIDE 40 MG TABLET (FP) PO SCH (09:59)
[2017-04-06] MEDS: PREGABALIN 50 MG CAPSULE PO SCH ×2 (09:59→22:27)
[2017-04-06] MEDS: POLYETHYLENE GLYCOL 3350 119 GM BTL PO SCH ×2 (09:59→22:27)
[2017-04-06] MEDS: PROPYLTHIOURACIL 50 MG TABLET (UD) PO SCH (09:59)
[2017-04-06 10:00] LABS: ALBUMIN 2.2 g/dl (3.4-5.0); ANION GAP 3 (8-16); BILIRUBIN,TOTAL 0.8 mg/dL (0.2-1.0); BLOOD UREA NITROGEN 9 mg/dL (7-18); CALCIUM 8.7 mg/dL (8.5-10.1); CHLORIDE 104 mmol/L (98-107); CO2 34 mmol/L (21-32); GLUCOSE,RANDOM 103 mg/dL (74-106); POTASSIUM 3.9 mmol/L (3.5-5.1); SGOT/AST 24 U/L (15-37); SGPT/ALT 13 U/L (12-78); SODIUM 141 mmol/L (136-145); TOT PROT 9.8 g/dl (6.4-8.2)
[2017-04-06 10:01] LABS: ALK PHOS 70 U/L (45-117)
--- NOTE | 2017-04-06 11:05 | PN ---
Progress Note, Physician Chief Complaint: yesterday spiked fever remained tachycardiac and in respiratory distress and evaluated by cardiology, Pulmonary and ID consult, ABG shows High , on BIPAP, TWBC trended normal H/H stable , still drowsy rate controlled, hemodynamically stable. History of Present Illness: 86 year old female with past medical history of multiple myeloma, Afib, CHF, and diabetes who presents to the ED with complaints of cough, SOB, chest pain, and abdominal pain, W/U Shows acute Diverticulitis and Pneumonia, tolerating PO on IV Zosyn. - Current Medication List Current Medications: Active Medications Acetaminophen (Tylenol -) 650 mg PO Q12H PRN PRN Reason: PAIN Last Admin: 04/05/17 14:00 Dose: 650 mg Acetaminophen (Ofirmev Injection -) 850 mg IVPB Q8H PRN Last Admin: 04/05/17 23:56 Dose: 850 mg Acetylcysteine (Mucomyst 20 Oral / Inh Use Only*) 600 mg NEB RQID [facility] Last Admin: 04/06/17 07:50 Dose: 600 mg Albuterol Sulfate (Ventolin 0.083% Nebulizer Soln -) 1 amp NEB Q6H PRN PRN Reason: SHORT OF BREATH/WHEEZING Last Admin: 04/06/17 07:50 Dose: 1 amp Atorvastatin Calcium (Lipitor -) 20 mg PO HS [facility] Last Admin: 04/05/17 21:31 Dose: 20 mg Cholecalciferol (Vitamin D3 -) 2,000 unit PO DAILY [facility] Last Admin: 04/06/17 09:58 Dose: 2,000 unit Diltiazem HCl (Cardizem -) 60 mg PO TID [facility] Last Admin: 04/06/17 07:26 Dose: 60 mg Docusate Sodium (Colace -) 100 mg PO BID [facility] Last Admin: 04/06/17 09:58 Dose: 100 mg Furosemide (Lasix -) 40 mg PO DAILY [facility] Last Admin: 04/06/17 09:59 Dose: 40 mg Guaifenesin (Mucinex -) 600 mg PO BID [facility] Last Admin: 04/06/17 09:59 Dose: 600 mg Piperacillin Sod/Tazobactam (Sod 3.375 gm/ Dextrose) 50 mls @ 100 mls/hr IVPB Q8H-IV [facility] PRN Reason: Protocol Last Admin: 04/06/17 09:04 Dose: 100 mls/hr Insulin Aspart (Novolog Vial Sliding Scale -) 1 vial SQ ACHS [facility] PRN Reason: Protocol Last Admin: 04/06/17 07:00 Dose: Not Given Lorazepam (Ativan -) 0.25 mg PO BID [facility] Last Admin: 04/05/17 21:30 Dose: Not Given Metoprolol Succinate (Toprol Xl -) 50 mg PO DAILY [facility] Last Admin: 04/06/17 09:58 Dose: 50 mg Montelukast Sodium (Singulair -) 10 mg PO HS [facility] Last Admin: 04/05/17 21:31 Dose: 10 mg Polyethylene Glycol (Miralax (For Daily Use) -) 17 gm PO BID [facility] Last Admin: 04/06/17 09:59 Dose: 17 grams Pregabalin (Lyrica -) 50 mg PO BID [facility] Last Admin: 04/06/17 09:59 Dose: 50 mg Propylthiouracil (Ptu -) 50 mg PO DAILY [facility] Last Admin: 04/06/17 09:59 Dose: 50 mg - Objective Vital Signs: Vital Signs Temperature 99.6 F 04/06/17 10:00 Pulse Rate 78 04/06/17 10:00 Respiratory Rate 24 04/06/17 10:00 Blood Pressure 110/60 04/06/17 10:00 O2 Sat by Pulse Oximetry (%) 98 04/06/17 09:00 Elderly F sick looking , drwosy bur responding to command mild respiratory distress. HEENT: Mm moist, pale, anemia +, no thrush NECK: No NVD No Bruit CHEST: b/l diffuse basal Crepts CVS: S1S2 IR tachycardia ABD: No distention Mild tender, Bs + EXT: Trace Edema , no calf tenderness, pulses + [employer]: lethargic, res[ponding to verbal command. moving all extermities.. Labs: CBC, BMP 04/06/17 07:15 04/06/17 07:15 INR, PTT INR 2.86 (0.82-1.09) H 04/05/17 05:05 Problem List - Problems (1) Acute diverticulitis Assessment/Plan: On IV abx no perforation,pain abd improving, minimal tenderness. Code(s): K57.92 - DVTRCLI OF INTEST, PART UNSP, W/O PERF OR ABSCESS W/O BLEED (2) Pneumonia Assessment/Plan: Chest X ray is suggestive of infiltrates, on IV Zozyn, TWBC trended normal, but patient is febrile discussed with ID consult recommenced current abx F/U U and blood culture. Code(s): J18.9 - PNEUMONIA, UNSPECIFIED ORGANISM (3) Anemia Assessment/Plan: Chronic H/H 7.8 almost at base line Code(s): D64.9 - ANEMIA, UNSPECIFIED Qualifiers: Anemia type: unspecified type Qualified Code(s): D64.9 - Anemia, unspecified (4) Chronic a-fib Assessment/Plan: On Diltiazem for rate controled now OFf Ac f/u inr, YESTERDAY HAD rvr TILL 140S NOW RATE CONTROLLED, B BlOCKERS INCREASED RECEIVED EXTRA DOSE OF DILTIZEM WILL f/u CARDIOLOGY RECOMMENDATION. r. Code(s): I48.2 - CHRONIC ATRIAL FIBRILLATION (5) T2DM (type 2 diabetes mellitus) Assessment/Plan: Optimize Glycemic control. Code(s): E11.9 - TYPE 2 DIABETES MELLITUS WITHOUT COMPLICATIONS Qualifiers: Diabetes mellitus complication status: with neurologic complications (6) Vertebral fracture Assessment/Plan: Lumbar vertebral compression fracture of undermined age , no compressive signs. hold Narcotic cont IV tylenol Code(s): [id number] - Qualifiers: Encounter type: initial encounter Fracture of vertebra location: lumbar Lumbar vertebra fracture level: unspecified lumbar vertebra Fracture type: closed Fracture morphology: other fracture Qualified Code(s): S32.008A - Other fracture of unspecified lumbar vertebra, initial encounter for closed fracture (7) COPD (chronic obstructive pulmonary disease) Assessment/Plan: Yesterday developed Hypercarbia and AMS responded to BIPAP will F/U ABG and Pulmonary consult Code(s): J44.9 - CHRONIC OBSTRUCTIVE PULMONARY DISEASE, UNSPECIFIED (8) SOB (shortness of breath) Assessment/Plan: Due to Pulmonary congestion responded to IV lasix F/U BMP and clinical course Rpt abg and Pulmonary consult. Code(s): R06.02 - SHORTNESS OF BREATH (9) Hypokalemia Assessment/Plan: Repleted Code(s): E87.6 - HYPOKALEMIA (10) Hypomagnesemia Assessment/Plan: Recived Mag So4 F/U Sr magnesium. Code(s): E83.42 - HYPOMAGNESEMIA
[2017-04-06] MEDS: LORazepam 0.5 MG TABLET PO SCH ×2 (11:27→22:24)
--- NOTE | 2017-04-06 11:35 | EKG ---
Test Reason : Blood Pressure : / mmHG Vent. Rate : 131 BPM Atrial Rate : 144 BPM P-R Int : 000 ms QRS Dur : 082 ms QT Int : 288 ms P-R-T Axes : 000 -19 -30 degrees QTc Int : 425 ms POOR DATA QUALITY, INTERPRETATION MAY BE ADVERSELY AFFECTED ATRIAL FIBRILLATION WITH RAPID VENTRICULAR RESPONSE WITH PREMATURE VENTRICULAR OR ABERRANTLY CONDUCTED COMPLEXES ABNORMAL ECG WHEN COMPARED WITH ECG OF 02-APR-2017 10:57, NO SIGNIFICANT CHANGE WAS FOUND Confirmed by RONAL DOLL MD ([id number]) on 04/06/2017 11:35:25 AM Referred By: Confirmed By:RONAL DOLL MD
--- NOTE | 2017-04-06 12:09 | PN ---
Progress Note (short form) - Note Progress Note: PULMONARY CONSULTATION DICTATED 04/06/17 IMP ACUTE HYPOXEMIC/HYPERCAPNEIC RESPIRATORY FAILURE PNEUMONIA CHF AFIB COPD DM MM ANEMIA PLAN IV ANTIBIOTICS O2 NIPPV NEEDED INHALED BRONCHODILATORS STEROIDS X 24HR RATE CONTROL PER CARDIOLOGY F/U CHEST X-RAYS F/U ABGS MONITOR H+H DR THOMPSON Problem List - Problems (1) COPD (chronic obstructive pulmonary disease) Code(s): J44.9 - CHRONIC OBSTRUCTIVE PULMONARY DISEASE, UNSPECIFIED (2) Chronic a-fib Code(s): I48.2 - CHRONIC ATRIAL FIBRILLATION (3) Pneumonia Code(s): J18.9 - PNEUMONIA, UNSPECIFIED ORGANISM (4) SOB (shortness of breath) Code(s): R06.02 - SHORTNESS OF BREATH (5) Meningioma Code(s): D32.9 - BENIGN NEOPLASM OF MENINGES, UNSPECIFIED (6) Multiple myeloma Code(s): C90.00 - MULTIPLE MYELOMA NOT HAVING ACHIEVED REMISSION Qualifiers: Multiple myeloma remission status: not in remission Qualified Code(s): C90.00 - Multiple myeloma not having achieved remission (7) Acute respiratory failure with hypoxia and hypercapnia Code(s): J96.01 - ACUTE RESPIRATORY FAILURE WITH HYPOXIA; J96.02 - ACUTE RESPIRATORY FAILURE WITH HYPERCAPNIA (8) Congestive heart failure Code(s): I50.9 - HEART FAILURE, UNSPECIFIED Qualifiers: Congestive heart failure type: diastolic Congestive heart failure chronicity: chronic Qualified Code(s): I50.32 - Chronic diastolic (congestive ) heart failure (9) Diabetes mellitus Code(s): E11.9 - TYPE 2 DIABETES MELLITUS WITHOUT COMPLICATIONS
[2017-04-06 12:16] LABS: MAGNESIUM 1.4 mg/dL (1.8-2.4)
[2017-04-06 12:17] LABS: MAGNESIUM 1.5 mg/dL (1.8-2.4)
--- NOTE | 2017-04-06 12:17 | PN ---
Progress Note, Physician Chief Complaint: resp failure, afib History of Present Illness: per dtr, pt more lethargic and less oriented today. pt currently not communicative--opens eyes and tracks face. appears comfortable, no breathlessness apparent - Current Medication List Current Medications: Active Medications Acetaminophen (Tylenol -) 650 mg PO Q12H PRN PRN Reason: PAIN Last Admin: 04/05/17 14:00 Dose: 650 mg Acetaminophen (Ofirmev Injection -) 850 mg IVPB Q8H PRN Last Admin: 04/05/17 23:56 Dose: 850 mg Acetylcysteine (Mucomyst 20 Oral / Inh Use Only*) 600 mg NEB RQID [facility] Last Admin: 04/06/17 11:38 Dose: 600 mg Albuterol Sulfate (Ventolin 0.083% Nebulizer Soln -) 1 amp NEB Q6H PRN PRN Reason: SHORT OF BREATH/WHEEZING Last Admin: 04/06/17 11:38 Dose: 1 amp Atorvastatin Calcium (Lipitor -) 20 mg PO HS [facility] Last Admin: 04/05/17 21:31 Dose: 20 mg Cholecalciferol (Vitamin D3 -) 2,000 unit PO DAILY [facility] Last Admin: 04/06/17 09:58 Dose: 2,000 unit Diltiazem HCl (Cardizem -) 60 mg PO TID [facility] Last Admin: 04/06/17 07:26 Dose: 60 mg Docusate Sodium (Colace -) 100 mg PO BID [facility] Last Admin: 04/06/17 09:58 Dose: 100 mg Furosemide (Lasix -) 40 mg PO DAILY [facility] Last Admin: 04/06/17 09:59 Dose: 40 mg Guaifenesin (Mucinex -) 600 mg PO BID [facility] Last Admin: 04/06/17 09:59 Dose: 600 mg Piperacillin Sod/Tazobactam (Sod 3.375 gm/ Dextrose) 50 mls @ 100 mls/hr IVPB Q8H-IV [facility] PRN Reason: Protocol Last Admin: 04/06/17 09:04 Dose: 100 mls/hr Insulin Aspart (Novolog Vial Sliding Scale -) 1 vial SQ ACHS [facility] PRN Reason: Protocol Last Admin: 04/06/17 07:00 Dose: Not Given Lorazepam (Ativan -) 0.25 mg PO BID [facility] Last Admin: 04/06/17 11:27 Dose: Not Given Methylprednisolone Sodium Succinate (Solu-Medrol -) 40 mg IVPUSH Q6H-IV [facility] Stop: 04/07/17 09:01 Metoprolol Succinate (Toprol Xl -) 50 mg PO DAILY [facility] Last Admin: 04/06/17 09:58 Dose: 50 mg Montelukast Sodium (Singulair -) 10 mg PO HS [facility] Last Admin: 04/05/17 21:31 Dose: 10 mg Polyethylene Glycol (Miralax (For Daily Use) -) 17 gm PO BID [facility] Last Admin: 04/06/17 09:59 Dose: 17 grams Pregabalin (Lyrica -) 50 mg PO BID [facility] Last Admin: 04/06/17 09:59 Dose: 50 mg Propylthiouracil (Ptu -) 50 mg PO DAILY [facility] Last Admin: 04/06/17 09:59 Dose: 50 mg - Objective Vital Signs: Vital Signs Temperature 99.6 F 04/06/17 10:00 Pulse Rate 78 04/06/17 10:00 Respiratory Rate 24 04/06/17 10:00 Blood Pressure 110/60 04/06/17 10:00 O2 Sat by Pulse Oximetry (%) 98 04/06/17 09:00 Constitutional: Yes: No Distress, Calm Eyes: No: Sclera Icterus HENT: No: Nasal Congestion Cardiovascular: Yes: Pulse Irregular, S1, S2, Other (PMI non diplaced). No: JVD , Gallop, Murmur Respiratory: Yes: Diminished (bases). No: Accessory Muscle Use, Rales, Wheezes Gastrointestinal: Yes: Normal Bowel Sounds, Soft. No: Tenderness Musculoskeletal: Yes: Other (No kyphosis) Extremities: No: Cold Edema: No Integumentary: No: Jaundice Neurological: Yes: Lethargy. No: Seizure Psychiatric: No: Agitated Labs: CBC, BMP 04/06/17 07:15 04/06/17 07:15 INR, PTT INR 2.86 (0.82-1.09) H 04/05/17 05:05 - ....Imaging EKG: Other (tele: afib to 130s yest PM, today HR good) Assessment/Plan EKG: afib, 104 bpm no ischemic changes. Echo 06/2015: afib, nl LV/RV, mild-mod MR/TR, hi LAP, mild ao root dil MIBI 2013: no ST changes, probable breast artifact vs. AW ischemia. Nl EF PFTs 2014: no obstr, mild restr, mild decr DLCO CT chest: severe coronary calcifications. consolidation LEANDRO/LLL. opacities RUL/ RLL ? atx vs scar. no effusions. upper lobe interolbular septal thickening = ? interstitial edema. dilated main PA c/w pulm HTN. a/p: acute hypoxic resp failure, PNA, sepsis: - lactate elevated initially, with PNA. - spiked to 101.7 on 04/05. - recently euvolemic off of bumex as outpatient (bumex held when here 2017 with progressive myeloma bony pain and poor po, with dehydration and hypercalcemia) - multifactorial chronic sob (copd, diast chf, and ? related to very large hiatal hernia). - here with worsened sob than baseline, CT chest with findings of PNA - nonspecific findings of possible interstitial edema on CT (vs chronic interstitial changes--comparison to prior CT not described on report). in absence of pleural effusions or signs of volume on exam, will not agggressively diurese (hold diuretics) - on abx for PNA - 04/05: overnight signif incr resp distress with very diminished breath sounds. rpt CXR remains prohibitively TDS sec to pt position/rotated, diffuse changes bilat not obviously different vs prior 04/02 (images reviewed). - given lasix 40 ivp, bun/creat ok, BP downtrended but remains >100 syst. standing lasix 40 qd ordered - 04/06: resp status stable. no JVD appreciated. labs stable. continue lasix 40 po daily. - suppl O2, supportive care, abx per hospitalist - AF rate control as doing Afib - controlled at "lenient rate control" targest on home regimen: DILTIAZEM (60 AM , 60 LUNCH, 30 PM) AND LOW DOSE TOPROL (25). (has h/o bradycardia and hypotension of ? etiology--stable long time on reduced med regimen). - 04/04: currently HRs running 120-140 often, in setting of acute PNA this is likely physiologic. - has had no hypotensive episodes here. will incr diltiazem to 60 TID. - also note she is receiving lopressor 25 qd not toprol--hence early AM tachy is related to clearance of short-acting drug formulation. change back to toprol 25 qd - 04/05: HR now well controlled with above adjustments, cont same meds. - 04/06: HR tachy again overnight in setting of fever (prn dose of extra toprol given, and incr'd daily dose to 50 qd). HR well controlled since. - same meds (toprol 50 qd, dilt 60 tid). suspect will be able to go back down to prior home dose once PNA resolves. - cont coumadin (goal INR 2-3), dose prn daily levels - pain control per pmd. mild-mod MR - functional, likely related to volume status - echo 06/2015 stable anemia/multiple myeloma - 2/2 multiple myeloma. heme following. - complicated by vertebral fractures. currently on home hospice per cards office notes. - counts stable vs baseline, monitor on coumadin Emphysema - per pmd +/- pulm
[2017-04-06] MEDS ORDERED: methylPREDNISolone NA SUCC 40 MG/1 ML VIAL IVPUSH SCH (12:30)
[2017-04-06 12:41] LABS: ARTERIAL BLD GAS O2 SATURATION 94.3 % (90-98.9); ARTERIAL BLOOD GAS BASE EXCESS 9.4 meq/l (-2-2); ARTERIAL BLOOD GAS PO2 69.6 mmHg (68-100); ARTERIAL BLOOD GAS pH 7.45 (7.35-7.45)
[2017-04-06 12:42] LABS: ALLENS TEST POSITIVE
--- NOTE | 2017-04-06 15:23 | PN ---
Progress Note (short form) - Note Progress Note: Patient seen and examined Poorly responsive Last Vital Signs Temp Pulse Resp BP Pulse Ox 99.6 F 78 24 110/60 98 04/06/17 10:00 04/06/17 10:00 04/06/17 10:00 04/06/17 10:00 04/06/17 09:00 Poor inspiratory effort RSR Soft abd Ext-no significant edema Chest X-ray and CT reviewed - extensive infiltration LLL> right lung with probable congestive changes , fluid , and interstitial disease CBC, BMP 04/06/17 07:15 04/06/17 07:15 Current Medications Generic Name Dose Route Start Last Admin Trade Name Freq PRN Reason Stop Dose Admin Acetaminophen 650 mg 04/02/17 23:43 04/05/17 14:00 Tylenol - PO 650 mg Q12H PRN Administration PAIN Acetaminophen 850 mg 04/05/17 22:41 04/05/17 23:56 Ofirmev Injection - IVPB 850 mg Q8H PRN Administration Acetylcysteine 600 mg 04/06/17 02:00 04/06/17 11:38 Mucomyst 20 Oral / Inh Use Only* NEB 600 mg RQID [facility] Administration Albuterol Sulfate 1 amp 04/02/17 23:43 04/06/17 11:38 Ventolin 0.083% Nebulizer Soln - NEB 1 amp Q6H PRN Administration SHORT OF BREATH/WHEEZING Atorvastatin Calcium 20 mg 04/03/17 22:00 04/05/17 21:31 Lipitor - PO 20 mg HS [facility] Administration Cholecalciferol 2,000 unit 04/03/17 10:00 04/06/17 09:58 Vitamin D3 - PO 2,000 unit DAILY [facility] Administration Diltiazem HCl 60 mg 04/04/17 15:45 04/06/17 14:35 Cardizem - PO 60 mg TID [facility] Administration Docusate Sodium 100 mg 04/03/17 10:00 04/06/17 09:58 Colace - PO 100 mg BID [facility] Administration Furosemide 40 mg 04/05/17 11:15 04/06/17 09:59 Lasix - PO 40 mg DAILY [facility] Administration Guaifenesin 600 mg 04/06/17 01:30 04/06/17 09:59 Mucinex - PO 600 mg BID [facility] Administration Piperacillin Sod/Tazobactam 50 mls @ 100 mls/hr 04/04/17 18:00 04/06/17 09:04 Sod 3.375 gm/ Dextrose IVPB 100 mls/hr Q8H-IV [facility] Administration Protocol Insulin Aspart 1 vial 04/03/17 07:00 04/06/17 12:23 Novolog Vial Sliding Scale - SQ 2 units ACHS [facility] Administration Protocol Lorazepam 0.25 mg 04/03/17 10:00 04/06/17 11:27 Ativan - PO Not Given BID [facility] Methylprednisolone Sodium Succinate 40 mg 04/06/17 14:47 Solu-Medrol - IVPUSH 04/07/17 06:31 Q6H [facility] Metoprolol Succinate 50 mg 04/06/17 10:00 04/06/17 09:58 Toprol Xl - PO 50 mg DAILY [facility] Administration Montelukast Sodium 10 mg 04/03/17 22:00 04/05/17 21:31 Singulair - PO 10 mg HS [facility] Administration Polyethylene Glycol 17 gm 04/03/17 10:00 04/06/17 09:59 Miralax (For Daily Use) - PO 17 grams BID [facility] Administration Pregabalin 50 mg 04/03/17 10:00 04/06/17 09:59 Lyrica - PO 50 mg BID [facility] Administration Propylthiouracil 50 mg 04/03/17 10:00 04/06/17 09:59 Ptu - PO 50 mg DAILY [facility] Administration Myeloma - not in remission Bone Mets Conservative management Pain control Lethargy Anemia Plan: Pain management Antibiotics /pneumonia Monitor Ca++/ cbc
--- NOTE | 2017-04-06 15:38 | PN ---
Progress Note (short form) - Note Progress Note: itransient fever to 101 yesterday cultures sent not tachycardic today remains weak no BM per nurse eating poorly Vital Signs Period Temp Pulse Resp BP Sys/Nieto Pulse Ox Last 24 Hr 97.4 F-100 F 78-130 20-26 107-145/60-90 97-100 cor-rrr lungs decreased bs at bases abd soft,nt ext no edema CBC, BMP 04/06/17 07:15 04/06/17 07:15 Microbiology 04/05/17 14:30 Blood - Peripheral Venous Blood Culture - Preliminary NO GROWTH OBTAINED AFTER 24 HOURS, INCUBATION TO CONTINUE FOR 4 DAYS. 04/05/17 14:25 Blood - Peripheral Venous Blood Culture - Preliminary NO GROWTH OBTAINED AFTER 24 HOURS, INCUBATION TO CONTINUE FOR 4 DAYS. a/p pneumonia-could she have aspirated?, fevers are down today and cultures are pending diverticulitis compression fractures (lumbar and thoracic) multiple myeloma continue zosyn day #9 cxray difficult to read due to hernia and body habitus but unchanged afib- management per cardiology per cardiology
[2017-04-06] MEDS: methylPREDNISolone NA SUCC 40 MG/1 ML VIAL IVPUSH SCH ×2 (15:59→22:24)
--- NOTE | 2017-04-06 16:31 | CONS ---
DATE OF CONSULTATION: 04/06/2017 REFERRING PHYSICIAN: Landry Simpson MD HISTORY: The patient is an 86-year-old black female with extensive past medical history, which includes atrial fibrillation, congestive heart failure, multiple myeloma, diabetes, history of COPD, longstanding history of tobacco use 1 pack per day greater than 55 years quit years ago admitted to [facility] on March 29 with the complaint of shortness of breath, cough, and abdominal pain. The patient was admitted with the above. On admission, she was felt to have a possible pneumonia. She underwent a CT scan of the chest on admission, which revealed likely pneumonia, consolidated opacities on the left upper lobe. She was also noted to have some increased pulmonary vascular congestion. On admission, she was evaluated by Dr. Moore for Infectious Disease and placed on empiric antibiotic therapy. She was also evaluated by Cardiology. Yesterday the patient started developing increasing respiratory distress at which time she was placed on BiPAP. She was also administered Lasix and diltiazem for rapid atrial fibrillation. The patient is currently on nasal cannula. Mildly dyspneic but in no acute respiratory distress. PAST MEDICAL HISTORY: Again includes multiple myeloma, COPD, congestive heart failure, atrial fibrillation, and diabetes. REVIEW OF SYSTEMS: Unable to obtain. SOCIAL HISTORY: History of tobacco use 1 pack per day greater than 55 years, quit years ago. No occupational exposures. CURRENT MEDICATIONS: Include Tylenol, acetaminophen, Zosyn, Lyrica, PTU, Ativan, Ventolin, metoprolol, Cardizem, Zoloft, MiraLAX, Lipitor, NovoLog, Singulair, Lasix, Mucomyst, and vitamin D3. PHYSICAL EXAMINATION: General: The patient is an elderly female thin, well-developed, lethargic on nasal cannula. Vital Signs: Blood pressure is currently 110/60, respiratory rate is 24, temperature is 99.6, O2 saturation is 92% on 2 L. HEENT: Normocephalic and atraumatic. Neck: Supple. Heart: Irregularly irregular. Normal S1, S2. Chest: A few scattered rhonchi and crackles bilaterally. Abdomen: Soft. Bowel sounds positive. Extremities: No cyanosis or edema. LABORATORIES: WBC 5.5, hemoglobin 7.7, hematocrit 24.9, INR 2.83. Blood gas: PH 7.37, PCO2 of 67, bicarbonate of 97, saturation of 97.2 on 50% venturi mask. Chest x-ray reveals pulmonary vascular congestion with likely infiltrate in the left lung field as well as right lower lobe, right mid lung field. IMPRESSION: 1. Acute hypercapnic, hypoxemic respiratory failure secondary to multiple factors likely positive pneumonia. 2. Congestive heart failure. 3. Atrial fibrillation. 4. Advanced chronic obstructive pulmonary disease. 5. Diabetes. PLAN: Inhaled bronchodilators. Supplemental O2. Check arterial blood gas. BiPAP as needed. Rate control as per Cardiology. Diuretics. Try to avoid sedation, which has been worse with hypercapnia. Obtain follow up chest x-ray as well as cultures. AMARI THOMPSON M.D. [id number]
[2017-04-06] MEDS ORDERED: MAGNESIUM SULF 50% (8.12 MEQ/2 ML-1 GM VIAL) IVPB ONE (17:00)
[2017-04-06] MEDS: ACETAMINOPHEN 1000 MG/100 ML VIAL (NON FORMULARY) IVPB PRN (17:15)
[2017-04-06] MEDS: ATORVASTATIN CA 20 MG TABLET (FP) PO SCH (22:21)
[2017-04-06] MEDS: MONTELUKAST NA 10 MG TABLET PO SCH (22:24)
[2017-04-07] MEDS ORDERED: PT OWN MED DRAWER 7, Y5N ONE (03:43)
[2017-04-07] MEDS: methylPREDNISolone NA SUCC 40 MG/1 ML VIAL IVPUSH SCH (03:45)
[2017-04-07] MEDS: PIPERACILLIN/TAZOB 3.375 GM 3.375 GM in DEXTROSE 5%-WATER - 50 ML IVPB SCH ×2 (03:45→10:19)
[2017-04-07] MEDS: INSULIN SLIDING SCALE (NOVOLOG) 1 VIAL SQ SCH ×4 (06:50→22:17)
[2017-04-07] MEDS: dilTIAZem HCL 60 MG TABLET (FP) PO SCH ×3 (06:51→22:08)
[2017-04-07 07:16] LABS: HEMATOCRIT 24.5 % (32.4-45.2); HEMOGLOBIN 7.7 GM/dL (10.7-15.3); MCH 27.7 pg (25.7-33.7); MCHC 31.4 g/dl (32.0-36.0); MEAN CELL VOLUME 88.2 fl (80-96); PLATELET COUNT 158 K/MM3 (134-434); RBC 2.78 M/mm3 (3.60-5.2); RDW 20.1 % (11.6-15.6); WHITE BLOOD COUNT 6.3 K/mm3 (4.0-10.0)
[2017-04-07 07:21] LABS: INR 1.63 (0.82-1.09); PROTHROMBIN TIME (PATIENT) 18.4 SEC (9.98-11.88)
[2017-04-07 07:46] LABS: ANION GAP 8 (8-16); BLOOD UREA NITROGEN 16 mg/dL (7-18); CALCIUM 7.7 mg/dL (8.5-10.1); CHLORIDE 103 mmol/L (98-107); CO2 32 mmol/L (21-32); CREATININE 0.9 mg/dL (0.55-1.02); GLUCOSE,RANDOM 136 mg/dL (74-106); SODIUM 143 mmol/L (136-145)
[2017-04-07 07:50] LABS: POTASSIUM 2.9 mmol/L (3.5-5.1)
[2017-04-07] MEDS: ACETYLCYSTEINE 20% 200MG/ML 30 ML VIAL *FOR ORAL / INH USE ONLY NEB SCH ×4 (08:23→21:30)
[2017-04-07] MEDS: ALBUTEROL SO4 0.083% IH SOL 2.5 MG/3 ML VIAL.NEB. NEB PRN ×4 (08:23→21:30)
--- NOTE | 2017-04-07 08:46 | HOSP ---
Physical Examination Vital Signs: Vital Signs Temperature 98.1 F 04/07/17 05:51 Pulse Rate 74 04/07/17 08:22 Respiratory Rate 20 04/07/17 05:51 Blood Pressure 115/50 04/07/17 05:51 O2 Sat by Pulse Oximetry (%) 98 04/07/17 08:22 Labs: CBC, BMP 04/07/17 05:20 04/07/17 05:20 Hospitalist Encounter Assessment: Called for critical value k 2.9 Pt nad, eating breakfast, telemetry a fib, rate controlled Will replete potassium 40meq x1 now, repeat dose in 4 hrs recheck bmp this afternoon
[2017-04-07] MEDS ORDERED: POTASSIUM CHLORIDE ORAL LIQUID 20 MEQ/15 ML PO ONE ×2 (09:00→13:00)
[2017-04-07 10:18] LABS: PLATELET ESTIMATE DECREASED; TARGET CELLS 1+
[2017-04-07] MEDS: LORazepam 0.5 MG TABLET PO SCH ×2 (10:18→22:11)
[2017-04-07] MEDS: DOCUSATE SODIUM 100 MG CAPSULE (FP) PO SCH ×2 (10:18→22:10)
[2017-04-07] MEDS: guaiFENesin 600 MG TABLET.ER (FP) PO SCH ×2 (10:18→22:10)
[2017-04-07] MEDS: PREGABALIN 50 MG CAPSULE PO SCH ×2 (10:18→22:09)
[2017-04-07] MEDS: CHOLECALCIFEROL (VITAMIN D3) 1,000 UNIT TABLET (FP) PO SCH (10:18)
[2017-04-07] MEDS: FUROSEMIDE 40 MG TABLET (FP) PO SCH (10:18)
[2017-04-07] MEDS: POLYETHYLENE GLYCOL 3350 119 GM BTL PO SCH ×2 (10:19→22:10)
[2017-04-07] MEDS: PROPYLTHIOURACIL 50 MG TABLET (UD) PO SCH (10:19)
[2017-04-07] MEDS: METOPROLOL SUCCINATE 50 MG TAB.SR.24H (FP) PO SCH (10:19)
--- NOTE | 2017-04-07 10:42 | PN ---
Progress Note (short form) - Note Progress Note: ID Previous fever noted Has been on [facility] long course Microbiology 03/30/17 13:50 Blood - Peripheral Venous Blood Culture - Final NO GROWTH AFTER 5 DAYS INCUBATION 03/30/17 13:45 Blood - Peripheral Venous Blood Culture - Final NO GROWTH AFTER 5 DAYS INCUBATION 04/05/17 14:30 Blood - Peripheral Venous Blood Culture - Preliminary NO GROWTH OBTAINED AFTER 24 HOURS, INCUBATION TO CONTINUE FOR 4 DAYS. 04/05/17 14:25 Blood - Peripheral Venous Blood Culture - Preliminary NO GROWTH OBTAINED AFTER 24 HOURS, INCUBATION TO CONTINUE FOR 4 DAYS. Selected Entries 04/06/17 04/07/17 18:48 05:51 Temperature 99.2 F 98.1 F Pulse Rate 89 Respiratory 20 Rate Blood Pressure 115/50 Laboratory Tests 04/07/17 04/07/17 05:20 05:20 WBC 6.3 Hgb 7.7 L Plt Count 158 Sodium 143 Potassium 2.9 L* Advise stop current antibiotic and observe Hypokalemia likely from Juan Moore MD Problem List - Problems (1) Pneumonia Code(s): J18.9 - PNEUMONIA, UNSPECIFIED ORGANISM (2) Atrial fibrillation Code(s): I48.91 - UNSPECIFIED ATRIAL FIBRILLATION Qualifiers: Atrial fibrillation type: chronic Qualified Code(s): I48.2 - Chronic atrial fibrillation (3) Diverticulitis Code(s): K57.92 - DVTRCLI OF INTEST, PART UNSP, W/O PERF OR ABSCESS W/O BLEED
--- NOTE | 2017-04-07 10:58 | PN ---
Progress Note (short form) - Note Progress Note: pt seen and examined. events noted. Last week was much more awake and alert than today. ROS not obtainable CXR/CT chest reviewed O/E: Last Vital Signs Temp Pulse Resp BP Pulse Ox 98.1 F 74 20 115/50 98 04/07/17 05:51 04/07/17 08:22 04/07/17 05:51 04/07/17 05:51 04/07/17 08:22 CBC, BMP 04/07/17 05:20 04/07/17 05:20 Current Medications Generic Name Dose Route Start Last Admin Trade Name Freq PRN Reason Stop Dose Admin Acetaminophen 650 mg 04/02/17 23:43 04/05/17 14:00 Tylenol - PO 650 mg Q12H PRN Administration PAIN Acetaminophen 850 mg 04/05/17 22:41 04/06/17 17:15 Ofirmev Injection - IVPB 850 mg Q8H PRN Administration Acetylcysteine 600 mg 04/06/17 02:00 04/07/17 08:23 Mucomyst 20 Oral / Inh Use Only* NEB 600 mg RQID [facility] Administration Albuterol Sulfate 1 amp 04/02/17 23:43 04/07/17 08:23 Ventolin 0.083% Nebulizer Soln - NEB 1 amp Q6H PRN Administration SHORT OF BREATH/WHEEZING Atorvastatin Calcium 20 mg 04/03/17 22:00 04/06/17 22:21 Lipitor - PO 20 mg HS [facility] Administration Cholecalciferol 2,000 unit 04/03/17 10:00 04/07/17 10:18 Vitamin D3 - PO 2,000 unit DAILY [facility] Administration Diltiazem HCl 60 mg 04/04/17 15:45 04/07/17 06:51 Cardizem - PO 60 mg TID [facility] Administration Docusate Sodium 100 mg 04/03/17 10:00 04/07/17 10:18 Colace - PO 100 mg BID [facility] Administration Furosemide 40 mg 04/05/17 11:15 04/07/17 10:18 Lasix - PO 40 mg DAILY [facility] Administration Guaifenesin 600 mg 04/06/17 01:30 04/07/17 10:18 Mucinex - PO 600 mg BID [facility] Administration Insulin Aspart 1 vial 04/03/17 07:00 04/07/17 06:50 Novolog Vial Sliding Scale - SQ Not Given ACHS [facility] Protocol Lorazepam 0.25 mg 04/03/17 10:00 04/07/17 10:18 Ativan - PO 0.25 mg BID [facility] Administration Metoprolol Succinate 50 mg 04/06/17 10:00 04/07/17 10:19 Toprol Xl - PO 50 mg DAILY [facility] Administration Montelukast Sodium 10 mg 04/03/17 22:00 04/06/17 22:24 Singulair - PO 10 mg HS [facility] Administration Polyethylene Glycol 17 gm 04/03/17 10:00 04/07/17 10:19 Miralax (For Daily Use) - PO 17 grams BID [facility] Administration Potassium Chloride 40 meq 04/07/17 13:00 Potassium Chloride Oral Liquid PO 04/07/17 13:01 ONCE ONE Pregabalin 50 mg 04/03/17 10:00 04/07/17 10:18 Lyrica - PO 50 mg BID [facility] Administration Propylthiouracil 50 mg 04/03/17 10:00 04/07/17 10:19 Ptu - PO 50 mg DAILY [facility] Administration Myeloma - not in remission Bone Mets Conservative management Pain control Anemia ?PNA Plan: Pain management Antibiotics /pneumonia , Tx per ID Monitor Ca++/ cbc consider Speech/swallow PRBC as needed conservative per family once medically stable, appropriate dispo plan to be made in conjunction with family. isabel/[place]
--- NOTE | 2017-04-07 11:01 | PN ---
Progress Note, Physician History of Present Illness: PULMONARY AWAKE,CONFUSED,-RESP DISTRESS - Current Medication List Current Medications: Active Medications Acetaminophen (Tylenol -) 650 mg PO Q12H PRN PRN Reason: PAIN Last Admin: 04/05/17 14:00 Dose: 650 mg Acetaminophen (Ofirmev Injection -) 850 mg IVPB Q8H PRN Last Admin: 04/06/17 17:15 Dose: 850 mg Acetylcysteine (Mucomyst 20 Oral / Inh Use Only*) 600 mg NEB RQID [facility] Last Admin: 04/07/17 08:23 Dose: 600 mg Albuterol Sulfate (Ventolin 0.083% Nebulizer Soln -) 1 amp NEB Q6H PRN PRN Reason: SHORT OF BREATH/WHEEZING Last Admin: 04/07/17 08:23 Dose: 1 amp Atorvastatin Calcium (Lipitor -) 20 mg PO HS [facility] Last Admin: 04/06/17 22:21 Dose: 20 mg Cholecalciferol (Vitamin D3 -) 2,000 unit PO DAILY [facility] Last Admin: 04/07/17 10:18 Dose: 2,000 unit Diltiazem HCl (Cardizem -) 60 mg PO TID [facility] Last Admin: 04/07/17 06:51 Dose: 60 mg Docusate Sodium (Colace -) 100 mg PO BID [facility] Last Admin: 04/07/17 10:18 Dose: 100 mg Furosemide (Lasix -) 40 mg PO DAILY [facility] Last Admin: 04/07/17 10:18 Dose: 40 mg Guaifenesin (Mucinex -) 600 mg PO BID [facility] Last Admin: 04/07/17 10:18 Dose: 600 mg Insulin Aspart (Novolog Vial Sliding Scale -) 1 vial SQ ACHS [facility] PRN Reason: Protocol Last Admin: 04/07/17 06:50 Dose: Not Given Lorazepam (Ativan -) 0.25 mg PO BID [facility] Last Admin: 04/07/17 10:18 Dose: 0.25 mg Metoprolol Succinate (Toprol Xl -) 50 mg PO DAILY [facility] Last Admin: 04/07/17 10:19 Dose: 50 mg Montelukast Sodium (Singulair -) 10 mg PO HS [facility] Last Admin: 04/06/17 22:24 Dose: 10 mg Polyethylene Glycol (Miralax (For Daily Use) -) 17 gm PO BID [facility] Last Admin: 04/07/17 10:19 Dose: 17 grams Potassium Chloride (Potassium Chloride Oral Liquid) 40 meq PO ONCE ONE Stop: 04/07/17 13:01 Pregabalin (Lyrica -) 50 mg PO BID [facility] Last Admin: 04/07/17 10:18 Dose: 50 mg Propylthiouracil (Ptu -) 50 mg PO DAILY [facility] Last Admin: 04/07/17 10:19 Dose: 50 mg - Objective Vital Signs: Vital Signs Temperature 98.1 F 04/07/17 05:51 Pulse Rate 74 04/07/17 08:22 Respiratory Rate 20 04/07/17 05:51 Blood Pressure 115/50 04/07/17 05:51 O2 Sat by Pulse Oximetry (%) 98 04/07/17 08:22 Constitutional: Yes: Calm, Thin Eyes: Yes: WNL HENT: Yes: WNL Neck: Yes: WNL Cardiovascular: Yes: Pulse Irregular, S1, S2 Respiratory: Yes: Rhonchi (BILATERAL COARSE BS,SCATTERED RHONCHI) Gastrointestinal: Yes: Normal Bowel Sounds, Soft Extremities: Yes: WNL Edema: No Labs: CBC, BMP 04/07/17 05:20 04/07/17 05:20 INR, PTT INR 1.63 (0.82-1.09) H D 04/07/17 05:20 Problem List - Problems (1) COPD (chronic obstructive pulmonary disease) Code(s): J44.9 - CHRONIC OBSTRUCTIVE PULMONARY DISEASE, UNSPECIFIED (2) Chronic a-fib Code(s): I48.2 - CHRONIC ATRIAL FIBRILLATION (3) Pneumonia Code(s): J18.9 - PNEUMONIA, UNSPECIFIED ORGANISM (4) SOB (shortness of breath) Code(s): R06.02 - SHORTNESS OF BREATH (5) Meningioma Code(s): D32.9 - BENIGN NEOPLASM OF MENINGES, UNSPECIFIED (6) Multiple myeloma Code(s): C90.00 - MULTIPLE MYELOMA NOT HAVING ACHIEVED REMISSION Qualifiers: Multiple myeloma remission status: not in remission Qualified Code(s): C90.00 - Multiple myeloma not having achieved remission (7) Acute respiratory failure with hypoxia and hypercapnia Code(s): J96.01 - ACUTE RESPIRATORY FAILURE WITH HYPOXIA; J96.02 - ACUTE RESPIRATORY FAILURE WITH HYPERCAPNIA (8) Congestive heart failure Code(s): I50.9 - HEART FAILURE, UNSPECIFIED Qualifiers: Congestive heart failure type: diastolic Congestive heart failure chronicity: chronic Qualified Code(s): I50.32 - Chronic diastolic (congestive ) heart failure (9) Diabetes mellitus Code(s): E11.9 - TYPE 2 DIABETES MELLITUS WITHOUT COMPLICATIONS Assessment/Plan IMP ACUTE HYPOXEMIC/HYPERCAPNEIC RESPIRATORY FAILURE IMPROVING PNEUMONIA CHF AFIB COPD DM MM ANEMIA PLAN O2 NIPPV NEEDED INHALED BRONCHODILATORS RATE CONTROL PER CARDIOLOGY F/U CHEST X-RAYS F/U ABGS MONITOR H+H REPLETE K DR THOMPSON Problem List - Problems (1) COPD (chronic obstructive pulmonary disease) Code(s): J44.9 - CHRONIC OBSTRUCTIVE PULMONARY DISEASE, UNSPECIFIED (2) Chronic a-fib Code(s): I48.2 - CHRONIC ATRIAL FIBRILLATION (3) Pneumonia Code(s): J18.9 - PNEUMONIA, UNSPECIFIED ORGANISM (4) SOB (shortness of breath) Code(s): R06.02 - SHORTNESS OF BREATH (5) Meningioma Code(s): D32.9 - BENIGN NEOPLASM OF MENINGES, UNSPECIFIED (6) Multiple myeloma Code(s): C90.00 - MULTIPLE MYELOMA NOT HAVING ACHIEVED REMISSION Qualifiers: Multiple myeloma remission status: not in remission Qualified Code(s): C90.00 - Multiple myeloma not having achieved remission (7) Acute respiratory failure with hypoxia and hypercapnia Code(s): J96.01 - ACUTE RESPIRATORY FAILURE WITH HYPOXIA; J96.02 - ACUTE RESPIRATORY FAILURE WITH HYPERCAPNIA (8) Congestive heart failure Code(s): I50.9 - HEART FAILURE, UNSPECIFIED Qualifiers: Congestive heart failure type: diastolic Congestive heart failure chronicity: chronic Qualified Code(s): I50.32 - Chronic diastolic (congestive ) heart failure (9) Diabetes mellitus Code(s): E11.9 - TYPE 2 DIABETES MELLITUS WITHOUT COMPLICATIONS
--- NOTE | 2017-04-07 11:24 | PN ---
Progress Note, Physician Chief Complaint: Ms Sanchez says she is not doing well. She appears confused today and unable to obtain subjective. - Current Medication List Current Medications: Active Medications Acetaminophen (Tylenol -) 650 mg PO Q12H PRN PRN Reason: PAIN Last Admin: 04/05/17 14:00 Dose: 650 mg Acetaminophen (Ofirmev Injection -) 850 mg IVPB Q8H PRN Last Admin: 04/06/17 17:15 Dose: 850 mg Acetylcysteine (Mucomyst 20 Oral / Inh Use Only*) 600 mg NEB RQID [facility] [place] Last Admin: 04/07/17 08:23 Dose: 600 mg Albuterol Sulfate (Ventolin 0.083% Nebulizer Soln -) 1 amp NEB Q6H PRN PRN Reason: SHORT OF BREATH/WHEEZING Last Admin: 04/07/17 08:23 Dose: 1 amp Atorvastatin Calcium (Lipitor -) 20 mg PO HS [facility] [place] Last Admin: 04/06/17 22:21 Dose: 20 mg Cholecalciferol (Vitamin D3 -) 2,000 unit PO DAILY [facility] [place] Last Admin: 04/07/17 10:18 Dose: 2,000 unit Diltiazem HCl (Cardizem -) 60 mg PO TID [facility] [place] Last Admin: 04/07/17 06:51 Dose: 60 mg Docusate Sodium (Colace -) 100 mg PO BID [facility] [place] Last Admin: 04/07/17 10:18 Dose: 100 mg Furosemide (Lasix -) 40 mg PO DAILY [facility] [place] Last Admin: 04/07/17 10:18 Dose: 40 mg Guaifenesin (Mucinex -) 600 mg PO BID [facility] [place] Last Admin: 04/07/17 10:18 Dose: 600 mg Insulin Aspart (Novolog Vial Sliding Scale -) 1 vial SQ ACHS [facility] [place] PRN Reason: Protocol Last Admin: 04/07/17 06:50 Dose: Not Given Lorazepam (Ativan -) 0.25 mg PO BID [facility] [place] Last Admin: 04/07/17 10:18 Dose: 0.25 mg Metoprolol Succinate (Toprol Xl -) 50 mg PO DAILY [facility] [place] Last Admin: 04/07/17 10:19 Dose: 50 mg Montelukast Sodium (Singulair -) 10 mg PO HS [facility] [place] Last Admin: 04/06/17 22:24 Dose: 10 mg Polyethylene Glycol (Miralax (For Daily Use) -) 17 gm PO BID [facility] [place] Last Admin: 04/07/17 10:19 Dose: 17 grams Potassium Chloride (Potassium Chloride Oral Liquid) 40 meq PO ONCE ONE Stop: 04/07/17 13:01 Pregabalin (Lyrica -) 50 mg PO BID [facility] [place] Last Admin: 04/07/17 10:18 Dose: 50 mg Propylthiouracil (Ptu -) 50 mg PO DAILY [facility] [place] Last Admin: 04/07/17 10:19 Dose: 50 mg - Objective Vital Signs: Vital Signs Temperature 36.7 C 04/07/17 05:51 Pulse Rate 74 04/07/17 08:22 Respiratory Rate 20 04/07/17 05:51 Blood Pressure 115/50 04/07/17 05:51 O2 Sat by Pulse Oximetry (%) 98 04/07/17 08:22 Constitutional: Yes: Well Nourished, No Distress, Calm, Other (confused) Cardiovascular: Yes: Tachycardia, Pulse Irregular. No: Gallop, Murmur, Rub Respiratory: Yes: Regular, Cough, On Nasal O2, Rhonchi. No: CTA Bilaterally, Rales, Wheezes Gastrointestinal: Yes: Normal Bowel Sounds, Soft. No: Distention, Tenderness Extremities: Yes: WNL Edema: No Labs: CBC, BMP 04/07/17 05:20 04/07/17 05:20 INR, PTT INR 1.63 (0.82-1.09) H D 04/07/17 05:20 Problem List - Problems (1) Diverticulitis Code(s): K57.92 - DVTRCLI OF INTEST, PART UNSP, W/O PERF OR ABSCESS W/O BLEED (2) Pneumonia Code(s): J18.9 - PNEUMONIA, UNSPECIFIED ORGANISM (3) Vertebral fracture Code(s): JNS1591 - Qualifiers: Encounter type: initial encounter Fracture of vertebra location: lumbar Lumbar vertebra fracture level: unspecified lumbar vertebra Fracture type: closed Fracture morphology: other fracture Qualified Code(s): S32.008A - Other fracture of unspecified lumbar vertebra, initial encounter for closed fracture (4) Atrial fibrillation Code(s): I48.91 - UNSPECIFIED ATRIAL FIBRILLATION Qualifiers: Atrial fibrillation type: chronic Qualified Code(s): I48.2 - Chronic atrial fibrillation (5) Atypical chest pain Code(s): R07.89 - OTHER CHEST PAIN (6) COPD (chronic obstructive pulmonary disease) Code(s): J44.9 - CHRONIC OBSTRUCTIVE PULMONARY DISEASE, UNSPECIFIED (7) Congestive heart failure Code(s): I50.9 - HEART FAILURE, UNSPECIFIED Qualifiers: Congestive heart failure type: diastolic Congestive heart failure chronicity: chronic Qualified Code(s): I50.32 - Chronic diastolic (congestive ) heart failure (8) Diabetes mellitus Code(s): E11.9 - TYPE 2 DIABETES MELLITUS WITHOUT COMPLICATIONS (9) Hyperlipidemia Code(s): E78.5 - HYPERLIPIDEMIA, UNSPECIFIED (10) Multiple myeloma Code(s): C90.00 - MULTIPLE MYELOMA NOT HAVING ACHIEVED REMISSION Qualifiers: Multiple myeloma remission status: not in remission Qualified Code(s): C90.00 - Multiple myeloma not having achieved remission (11) Metabolic encephalopathy Code(s): G93.41 - METABOLIC ENCEPHALOPATHY Assessment/Plan (1) Diverticulitis Assessment/Plan: -resolving -tolerating regular diet Code(s): K57.92 - DVTRCLI OF INTEST, PART UNSP, W/O PERF OR ABSCESS W/O BLEED (2) Pneumonia Assessment/Plan: -concern for possible aspiration -consult speech therapy -ID following, stopped zosyn -follow up chest x-ray Code(s): J18.9 - PNEUMONIA, UNSPECIFIED ORGANISM (3) Vertebral fracture Assessment/Plan: -pain better controlled today Code(s): [id number] - Qualifiers: Encounter type: initial encounter Fracture of vertebra location: lumbar Lumbar vertebra fracture level: unspecified lumbar vertebra Fracture type: closed Fracture morphology: other fracture Qualified Code(s): S32.008A - Other fracture of unspecified lumbar vertebra, initial encounter for closed fracture (4) Atrial fibrillation Assessment/Plan: -cardiology following -continue metoprolol and diltiazem -restart coumadin, now subtherapeutic -daily INR checks Code(s): I48.91 - UNSPECIFIED ATRIAL FIBRILLATION Qualifiers: Atrial fibrillation type: chronic Qualified Code(s): I48.2 - Chronic atrial fibrillation (5) Atypical chest pain Assessment/Plan: -contrlled Code(s): R07.89 - OTHER CHEST PAIN (6) COPD (chronic obstructive pulmonary disease) Assessment/Plan: -case d/w pulmonary -repeat chest x-ray -CPAP as needed Code(s): J44.9 - CHRONIC OBSTRUCTIVE PULMONARY DISEASE, UNSPECIFIED (7) Congestive heart failure Assessment/Plan: -cardiology following and appreciate assistance Code(s): I50.9 - HEART FAILURE, UNSPECIFIED Qualifiers: Congestive heart failure type: diastolic Congestive heart failure chronicity: chronic Qualified Code(s): I50.32 - Chronic diastolic (congestive ) heart failure (8) Diabetes mellitus Assessment/Plan: -monitor now on diet -diabetic diet Code(s): E11.9 - TYPE 2 DIABETES MELLITUS WITHOUT COMPLICATIONS (9) Hyperlipidemia Assessment/Plan: -hold lipitor currently Code(s): E78.5 - HYPERLIPIDEMIA, UNSPECIFIED (10) Multiple myeloma Assessment/Plan: -oncology consult Code(s): C90.00 - MULTIPLE MYELOMA NOT HAVING ACHIEVED REMISSION Qualifiers: Multiple myeloma remission status: not in remission Qualified Code(s): C90.00 - Multiple myeloma not having achieved remission (11) Metabolic encephalopathy -patient with confusion today -unclear source -finished course of zosyn -? aspiration -monitor
--- NOTE | 2017-04-07 12:24 | CONSULT ---
Admitting History and Physical - Primary Care Physician PCP: Landry Simpson - Admission Chief Complaint: r/o aspiration History of Present Illness: The patient is an 86 year old female with past medical history of multiple myeloma, Afib, CHF, and diabetes who presents to the ED with complaints of cough , SOB, chest pain, and abdominal pain. was found to have acute diverticulitis ACUTE HYPOXEMIC/HYPERCAPNEIC RESPIRATORY FAILURE IMPROVING PNEUMONIA CHF AFIB COPD DM MM ANEMIA Selected Entries 04/03/17 04/03/17 04/03/17 02:00 05:27 07:00 Breakfast Lunch Supper Temperature 99.1 F 97.9 F 97.9 F 04/03/17 04/03/17 04/04/17 18:00 22:00 02:00 Breakfast Lunch Supper Temperature 98.5 F 98 F 98.8 F 04/04/17 04/04/17 04/04/17 10:00 14:00 18:00 Breakfast Lunch Supper Temperature 98.8 F 99 F 98.2 F 04/05/17 04/05/17 04/05/17 02:00 05:56 10:00 Breakfast Lunch Supper Temperature 98.7 F 98.7 F 98.8 F 04/05/17 04/05/17 04/05/17 14:00 18:00 20:51 Breakfast Lunch Supper Temperature 101.7 F H 98.9 F 97.4 F L 04/05/17 04/06/17 04/06/17 23:30 02:15 06:00 Breakfast Lunch Supper Temperature 100 F H 99.7 F H 99.4 F 04/06/17 04/06/17 04/06/17 10:00 12:07 14:15 Breakfast 50% Lunch Supper Temperature 99.6 F 99.8 F H 04/06/17 04/06/17 04/06/17 15:26 17:00 18:48 Breakfast Lunch 50% Supper Temperature 102.2 F H 99.2 F 04/06/17 04/06/17 04/07/17 18:59 22:00 02:00 Breakfast Lunch Supper 0 Temperature 98.8 F 98.1 F 04/07/17 04/07/17 05:51 10:43 Breakfast 75% Lunch Supper Temperature 98.1 F Laboratory Tests 04/07/17 05:20 WBC 6.3 Seen by me 10/2016. Tolerated soft food/thin liquid. Rec: mbs if aspiration suspected History Source: Patient, Family Member, Medical Record Limitations to Obtaining History: Clinical Condition - Past Medical History Cardiovascular: Yes: AFIB, HTN, Hyperlipdemia Pulmonary: Yes: COPD Renal/: Yes: UTI (recent Hx of ESBL UTI) ...: No Heme/Onc: Yes: Anemia, Other (multiple myeloma) Endocrine: Yes: Diabetes Mellitus - Past Surgical History Past Surgical History: Yes: Joint Replacement - Smoking History Smoking history: Never smoked Have you smoked in the past 12 months: No Aproximately how many cigarettes per day: 0 If you are a former smoker, when did you quit?: 1989 - Alcohol/Substance Use Hx Alcohol Use: No History of Substance Use: reports: None - Social History ADL: Family Assistance Occupation: Retired History of Recent Travel: No History - Admission Reason For Visit: FRACTURE OF VERTEBRA - Diagnostics CT Scan: Report Reviewed ( CT chest: severe coronary calcifications. consolidation LEANDRO/LLL. opacities RUL/RLL ? atx vs scar. no effusions. upper lobe interolbular septal thickening = ? interstitial edema. dilated main PA c/w pulm HTN.) - General Mental Status: Awake and Alert, Able to Follow Commands, Forgetful, Vague, Intermittently Confused Attention: Distractible Ability to Follow Directions: Fair Head/Neck Control: Fair - Hearing Hearing Aide: No With Patient: No Speech Evaluation - Communication Primary Language: KOREAN Communication: Yes: Simple Responses - Speech Production Able to Make Needs Known: Yes: WNL Intelligibility: Yes: WNL - Speech Characteristics Voice Loudness: Normal Voice Pitch: Yes: Normal Voice Phonatory-based Quality: Yes: Normal Speech Pattern: Normal Speech Clarity: < 100% Nasal Resonance: Normal Articulation: Yes: Precise - Language/Auditory Comprehension Follows: Yes: 1 Stage Simple Commands - Language/Verbal Expression Able to Communicate Wants and Needs: Yes: WNL - Swallow Evaluation/Bedside Assessment Current Nutritional Intake: Regular, Thin Liquids Dentition: Yes: Edentulous (upper), Missing Teeth (lower) Facial Symmetry at Rest: Symmetrical Facial Symmetry on Retraction: Symmetrical Against Resistance Opening: Normal Against Resistance Closing: Normal Pucker Lips: Normal Smile: Normal Lingual Movement: Normal, Symmetric Lingual Speed of Movement: Normal Lingual Movement Strgth Against Opposition: Normal Lingual Movement Characteristics: Normal Velopharyngeal Movement: Normal Laryngeal Movement: Labored,delay initiation Bolus Size: Small Labial Seal: WFL Chewing: Impaired Oral Prep Time: Increased A-P Transit: Impaired Timing of Swallow: Delayed Coughing/Throat Clear: Yes (brief repeated cough with liquids reported ) Recommendations - Speech Evaluation, Impression/Plan Impression: Verbal. Confused.Brief, repeated cough with liquids reported. Pt stated "I need to be careful or I choke." - Dysphagia Impressions/Plan Dysphagia Impressions: Risk of Aspiration, Ongoing Evaluation *Silent aspiration: cannot be R/O at bedside Recommendations: Modified Barium Swallow (if aspiration is suspected, and downgrade to nectar thick liquid.) - Recommendations Diet Consistency: Dysphagia Minced Medication Administration: Crushed with applesauce Liquids: Victor Thick Supplement: Other (ensure compact)
--- NOTE | 2017-04-07 12:56 | PN ---
Progress Note (short form) - Note Progress Note: Chief Complaint: resp failure, afib History of Present Illness: remains confused. + back pain and abdominal pain. per family breathing more comfortably. denies dizziness, cp, palps. toprol dose increased to 50 mg daily yesterday. Current Medications Acetaminophen (Tylenol -) 650 mg PO Q12H PRN PRN Reason: PAIN Last Admin: 04/05/17 14:00 Dose: 650 mg Acetaminophen (Ofirmev Injection -) 850 mg IVPB Q8H PRN Last Admin: 04/06/17 17:15 Dose: 850 mg Acetylcysteine (Mucomyst 20 Oral / Inh Use Only*) 600 mg NEB RQID [facility] Last Admin: 04/07/17 11:37 Dose: 600 mg Albuterol Sulfate (Ventolin 0.083% Nebulizer Soln -) 1 amp NEB Q6H PRN PRN Reason: SHORT OF BREATH/WHEEZING Last Admin: 04/07/17 11:38 Dose: 1 amp Atorvastatin Calcium (Lipitor -) 20 mg PO [facility] Last Admin: 04/06/17 22:21 Dose: 20 mg Cholecalciferol (Vitamin D3 -) 2,000 unit PO DAILY [facility] Last Admin: 04/07/17 10:18 Dose: 2,000 unit Diltiazem HCl (Cardizem -) 60 mg PO TID [facility] Last Admin: 04/07/17 06:51 Dose: 60 mg Docusate Sodium (Colace -) 100 mg PO BID [facility] Last Admin: 04/07/17 10:18 Dose: 100 mg Furosemide (Lasix -) 40 mg PO DAILY [facility] Last Admin: 04/07/17 10:18 Dose: 40 mg Guaifenesin (Mucinex -) 600 mg PO BID [facility] Last Admin: 04/07/17 10:18 Dose: 600 mg Insulin Aspart (Novolog Vial Sliding Scale -) 1 vial SQ ACHS [facility] PRN Reason: Protocol Last Admin: 04/07/17 12:08 Dose: 8 units Lorazepam (Ativan -) 0.25 mg PO BID [facility] Last Admin: 04/07/17 10:18 Dose: 0.25 mg Metoprolol Succinate (Toprol Xl -) 50 mg PO DAILY [facility] Last Admin: 04/07/17 10:19 Dose: 50 mg Montelukast Sodium (Singulair -) 10 mg PO HS [facility] Last Admin: 04/06/17 22:24 Dose: 10 mg Polyethylene Glycol (Miralax (For Daily Use) -) 17 gm PO BID [facility] Last Admin: 04/07/17 10:19 Dose: 17 grams Potassium Chloride (Potassium Chloride Oral Liquid) 40 meq PO ONCE ONE Stop: 04/07/17 13:01 Last Admin: 04/07/17 12:09 Dose: 40 meq Pregabalin (Lyrica -) 50 mg PO BID [facility] Last Admin: 04/07/17 10:18 Dose: 50 mg Propylthiouracil (Ptu -) 50 mg PO DAILY [facility] Last Admin: 04/07/17 10:19 Dose: 50 mg - Objective Vital Signs: Vital Signs - 24 hr 04/06/17 04/06/17 04/06/17 14:15 17:00 18:48 Temperature 99.8 F H 102.2 F H 99.2 F Pulse Rate 85 116 H Respiratory 22 18 Rate Blood Pressure 112/75 122/76 O2 Sat by Pulse Oximetry (%) 04/06/17 04/06/17 04/06/17 21:00 21:18 22:00 Temperature 98.8 F Pulse Rate 102 H Respiratory 20 Rate Blood Pressure 134/73 O2 Sat by Pulse 99 98 98 Oximetry (%) 04/07/17 04/07/17 04/07/17 02:00 02:26 05:51 Temperature 98.1 F 98.1 F Pulse Rate 90 89 Respiratory 20 20 Rate Blood Pressure 125/71 115/50 O2 Sat by Pulse 98 Oximetry (%) 04/07/17 04/07/17 06:28 08:22 Temperature Pulse Rate 74 Respiratory Rate Blood Pressure O2 Sat by Pulse 98 98 Oximetry (%) Intake & Output 04/05/17 04/06/17 04/07/17 04/08/17 07:59 07:59 07:59 07:59 Intake Total 300 50 200 Output Total 1000 1200 1350 Balance -700 -1150 -1150 Constitutional: Yes: No Distress, Calm Eyes: No: Sclera Icterus HENT: No: Nasal Congestion Cardiovascular: Yes: Pulse Irregular, S1, S2, Other (PMI non diplaced). No: JVD , Gallop, Murmur Respiratory: Yes: Diminished (bases). No: Accessory Muscle Use, Rales, Wheezes Gastrointestinal: Yes: Normal Bowel Sounds, Soft. No: Tenderness Musculoskeletal: Yes: Other (No kyphosis) Extremities: No: Cold Edema: No Integumentary: No: Jaundice Neurological: Yes: Lethargy. No: Seizure Psychiatric: No: Agitated Labs: CBC, BMP 04/07/17 05:20 04/07/17 05:20 Laboratory Tests 04/07/17 05:20 INR 1.63 H D - ....Imaging EKG: Other (tele: overall rate controlled afib, 100's. occ pvc's) Assessment/Plan EKG: afib, 104 bpm no ischemic changes. Echo 06/2015: afib, nl LV/RV, mild-mod MR/TR, hi LAP, mild ao root dil MIBI 2012: no ST changes, probable breast artifact vs. AW ischemia. Nl EF PFTs 2013: no obstr, mild restr, mild decr DLCO CT chest: severe coronary calcifications. consolidation LEANDRO/LLL. opacities RUL/ RLL ? atx vs scar. no effusions. upper lobe interolbular septal thickening = ? interstitial edema. dilated main PA c/w pulm HTN. repeat cxr 04/07, unchanged. a/p: acute hypoxic resp failure, PNA, sepsis: - lactate elevated initially, with PNA. - spiked to 101.7 on 04/05. - recently euvolemic off of bumex as outpatient (bumex held when here 2017 with progressive myeloma bony pain and poor po, with dehydration and hypercalcemia) - multifactorial chronic sob (copd, diast chf, and ? related to very large hiatal hernia). - here with worsened sob than baseline, CT chest with findings of PNA - nonspecific findings of possible interstitial edema on CT (vs chronic interstitial changes--comparison to prior CT not described on report). in absence of pleural effusions or signs of volume on exam, will not agggressively diurese (hold diuretics) - on abx for PNA - 04/05: overnight signif incr resp distress with very diminished breath sounds. rpt CXR remains prohibitively TDS sec to pt position/rotated, diffuse changes bilat not obviously different vs prior 04/02 (images reviewed). - given lasix 40 ivp, bun/creat ok, BP downtrended but remains >100 syst. standing lasix 40 qd ordered - 04/06-04/07: resp status stable. no JVD appreciated. labs stable. continue lasix 40 po daily. monitor for need to decrease dose (recenly off diuretics as outpatient) - suppl O2, supportive care, abx per hospitalist - AF rate control as doing Afib - controlled at "lenient rate control" targest on home regimen: DILTIAZEM (60 AM , 60 LUNCH, 30 PM) AND LOW DOSE TOPROL (25). (has h/o bradycardia and hypotension of ? etiology--stable long time on reduced med regimen). - 04/04: currently HRs running 120-140 often, in setting of acute PNA this is likely physiologic. - has had no hypotensive episodes here. will incr diltiazem to 60 TID. - also note she is receiving lopressor 25 qd not toprol--hence early AM tachy is related to clearance of short-acting drug formulation. change back to toprol 25 qd - 04/05: HR now well controlled with above adjustments, cont same meds. - 04/06: HR tachy again overnight in setting of fever (prn dose of extra toprol given, and incr'd daily dose to 50 qd). HR well controlled since. - same meds (toprol 50 qd, dilt 60 tid). suspect will be able to go back down to prior home dose once PNA resolves. - 04/07: HR improving on higher toprol dose. con't same meds. aggressive lyte repletion. - cont coumadin (goal INR 2-3), dose prn daily levels - pain control per pmd. mild-mod MR - functional, likely related to volume status - echo 06/2015 stable anemia/multiple myeloma - 2/2 multiple myeloma. heme following. - complicated by vertebral fractures. currently on home hospice per cards office notes. - counts stable around 7-8, monitor on coumadin Emphysema - per pmd +/- pulm
[2017-04-07] MEDS: ACETAMINOPHEN 325 MG TABLET (FP) PO PRN (14:28)
[2017-04-07 16:00] LABS: ANION GAP 2 (8-16); BLOOD UREA NITROGEN 18 mg/dL (7-18); CALCIUM 8.7 mg/dL (8.5-10.1); CHLORIDE 104 mmol/L (98-107); CO2 39 mmol/L (21-32); CREATININE 1.2 mg/dL (0.55-1.02); GLUCOSE,RANDOM 163 mg/dL (74-106); POTASSIUM 3.6 mmol/L (3.5-5.1); SODIUM 145 mmol/L (136-145)
[2017-04-07] MEDS ORDERED: ACETYLCYSTEINE 20% 200MG/ML 4 ML VIAL *FOR ORAL / INH USE ONLY ONE ×2 (16:33→21:36)
[2017-04-07] MEDS ORDERED: WARFARIN NA 3 MG TABLET PO SCH (18:00)
[2017-04-07] MEDS: ATORVASTATIN CA 20 MG TABLET (FP) PO SCH (22:10)
[2017-04-07] MEDS: MONTELUKAST NA 10 MG TABLET PO SCH (22:10)
[2017-04-08 00:07] LABS: FREE KAPPA,SERUM 61.2 mg/L (3.3-19.4)
[2017-04-08] MEDS: INSULIN SLIDING SCALE (NOVOLOG) 1 VIAL SQ SCH ×4 (06:36→21:21)
[2017-04-08] MEDS: dilTIAZem HCL 60 MG TABLET (FP) PO SCH ×3 (06:37→21:03)
[2017-04-08 07:25] LABS: BASO % 0.1 % (0-2.0); HEMOGLOBIN 7.8 GM/dL (10.7-15.3); LYMPH % 3.5 % (8-40); MCH 27.8 pg (25.7-33.7); MCHC 31.2 g/dl (32.0-36.0); MEAN CELL VOLUME 89.1 fl (80-96); MEAN PLT VOLUME 9.3 fl (7.5-11.1); MONO % 6.9 % (3.8-10.2); NEUT % 89.5 % (42.8-82.8); PLATELET COUNT 172 K/MM3 (134-434); RBC 2.81 M/mm3 (3.60-5.2); RDW 20.2 % (11.6-15.6); WHITE BLOOD COUNT 8.2 K/mm3 (4.0-10.0)
[2017-04-08 08:37] LABS: ANION GAP 1 (8-16); BLOOD UREA NITROGEN 22 mg/dL (7-18); CALCIUM 8.1 mg/dL (8.5-10.1); CHLORIDE 106 mmol/L (98-107); CO2 37 mmol/L (21-32); CREATININE 0.9 mg/dL (0.55-1.02); GLUCOSE,RANDOM 112 mg/dL (74-106); MAGNESIUM 1.7 mg/dL (1.8-2.4); PHOSPHOROUS 1.4 mg/dL (2.5-4.9); POTASSIUM 3.8 mmol/L (3.5-5.1); SODIUM 144 mmol/L (136-145)
[2017-04-08] MEDS: ACETYLCYSTEINE 20% 200MG/ML 30 ML VIAL *FOR ORAL / INH USE ONLY NEB SCH ×4 (08:37→20:55)
[2017-04-08] MEDS: ALBUTEROL SO4 0.083% IH SOL 2.5 MG/3 ML VIAL.NEB. NEB PRN ×4 (08:38→20:55)
[2017-04-08 08:50] LABS: INR 1.48 (0.82-1.09); PROTHROMBIN TIME (PATIENT) 16.7 SEC (9.98-11.88)
[2017-04-08] MEDS: METOPROLOL SUCCINATE 50 MG TAB.SR.24H (FP) PO SCH (09:40)
[2017-04-08] MEDS: LORazepam 0.5 MG TABLET PO SCH ×2 (09:40→21:03)
[2017-04-08] MEDS: PREGABALIN 50 MG CAPSULE PO SCH ×2 (09:40→21:03)
[2017-04-08] MEDS: FUROSEMIDE 40 MG TABLET (FP) PO SCH (09:40)
[2017-04-08] MEDS: guaiFENesin 600 MG TABLET.ER (FP) PO SCH ×2 (09:40→21:04)
[2017-04-08] MEDS: DOCUSATE SODIUM 100 MG CAPSULE (FP) PO SCH ×2 (09:42→21:04)
[2017-04-08] MEDS: CHOLECALCIFEROL (VITAMIN D3) 1,000 UNIT TABLET (FP) PO SCH (09:42)
[2017-04-08] MEDS: POLYETHYLENE GLYCOL 3350 119 GM BTL PO SCH ×2 (10:31→21:04)
--- NOTE | 2017-04-08 11:29 | PN ---
Progress Note, Physician History of Present Illness: pulmonary awake,comfortable,-resp distress,less congestion - Current Medication List Current Medications: Active Medications Acetaminophen (Tylenol -) 650 mg PO Q12H PRN PRN Reason: PAIN Last Admin: 04/07/17 14:28 Dose: 650 mg Acetaminophen (Ofirmev Injection -) 850 mg IVPB Q8H PRN Last Admin: 04/08/17 00:00 Dose: 850 mg Acetylcysteine (Mucomyst 20 Oral / Inh Use Only*) 600 mg NEB RQID [facility] Last Admin: 04/08/17 11:19 Dose: 600 mg Albuterol Sulfate (Ventolin 0.083% Nebulizer Soln -) 1 amp NEB Q6H PRN PRN Reason: SHORT OF BREATH/WHEEZING Last Admin: 04/08/17 11:19 Dose: 1 amp Atorvastatin Calcium (Lipitor -) 20 mg PO HS [facility] Last Admin: 04/07/17 22:10 Dose: 20 mg Cholecalciferol (Vitamin D3 -) 2,000 unit PO DAILY [facility] Last Admin: 04/08/17 09:42 Dose: 2,000 unit Diltiazem HCl (Cardizem -) 60 mg PO TID [facility] Last Admin: 04/08/17 06:37 Dose: 60 mg Docusate Sodium (Colace -) 100 mg PO BID [facility] Last Admin: 04/08/17 09:42 Dose: 100 mg Furosemide (Lasix -) 40 mg PO DAILY [facility] Last Admin: 04/08/17 09:40 Dose: 40 mg Guaifenesin (Mucinex -) 600 mg PO BID [facility] Last Admin: 04/08/17 09:40 Dose: 600 mg Insulin Aspart (Novolog Vial Sliding Scale -) 1 vial SQ ACHS [facility] PRN Reason: Protocol Last Admin: 04/08/17 06:36 Dose: Not Given Lorazepam (Ativan -) 0.25 mg PO BID [facility] Last Admin: 04/08/17 09:40 Dose: 0.25 mg Metoprolol Succinate (Toprol Xl -) 50 mg PO DAILY [facility] Last Admin: 04/08/17 09:40 Dose: 50 mg Montelukast Sodium (Singulair -) 10 mg PO HS [facility] Last Admin: 04/07/17 22:10 Dose: 10 mg Polyethylene Glycol (Miralax (For Daily Use) -) 17 gm PO BID [facility] Last Admin: 04/07/17 22:10 Dose: 17 grams Pregabalin (Lyrica -) 50 mg PO BID [facility] Last Admin: 04/08/17 09:40 Dose: 50 mg Propylthiouracil (Ptu -) 50 mg PO DAILY [facility] Last Admin: 04/07/17 10:19 Dose: 50 mg Warfarin Sodium (Coumadin -) 3 mg PO DAILY@1800 [facility] Last Admin: 04/07/17 17:17 Dose: 3 mg - Objective Vital Signs: Vital Signs Temperature 98.3 F 04/08/17 09:00 Pulse Rate 107 H 04/08/17 09:00 Respiratory Rate 20 04/08/17 09:00 Blood Pressure 123/72 04/08/17 09:00 O2 Sat by Pulse Oximetry (%) 97 04/08/17 09:00 Constitutional: Yes: Well Nourished, Calm Eyes: Yes: WNL HENT: Yes: WNL Neck: Yes: WNL Cardiovascular: Yes: Pulse Irregular, S1, S2 Respiratory: Yes: Rales (DEEPALI CRACKLES) Gastrointestinal: Yes: Normal Bowel Sounds, Soft Extremities: Yes: WNL Edema: No Labs: CBC, BMP 04/08/17 06:25 04/08/17 06:25 INR, PTT INR 1.48 (0.82-1.09) H 04/08/17 06:25 Problem List - Problems (1) COPD (chronic obstructive pulmonary disease) Code(s): J44.9 - CHRONIC OBSTRUCTIVE PULMONARY DISEASE, UNSPECIFIED (2) Chronic a-fib Code(s): I48.2 - CHRONIC ATRIAL FIBRILLATION (3) Pneumonia Code(s): J18.9 - PNEUMONIA, UNSPECIFIED ORGANISM (4) SOB (shortness of breath) Code(s): R06.02 - SHORTNESS OF BREATH (5) Meningioma Code(s): D32.9 - BENIGN NEOPLASM OF MENINGES, UNSPECIFIED (6) Multiple myeloma Code(s): C90.00 - MULTIPLE MYELOMA NOT HAVING ACHIEVED REMISSION Qualifiers: Multiple myeloma remission status: not in remission Qualified Code(s): C90.00 - Multiple myeloma not having achieved remission (7) Acute respiratory failure with hypoxia and hypercapnia Code(s): J96.01 - ACUTE RESPIRATORY FAILURE WITH HYPOXIA; J96.02 - ACUTE RESPIRATORY FAILURE WITH HYPERCAPNIA (8) Congestive heart failure Code(s): I50.9 - HEART FAILURE, UNSPECIFIED Qualifiers: Congestive heart failure type: diastolic Congestive heart failure chronicity: chronic Qualified Code(s): I50.32 - Chronic diastolic (congestive ) heart failure (9) Diabetes mellitus Code(s): E11.9 - TYPE 2 DIABETES MELLITUS WITHOUT COMPLICATIONS Assessment/Plan IMP ACUTE HYPOXEMIC/HYPERCAPNEIC RESPIRATORY FAILURE IMPROVING PNEUMONIA CHF AFIB COPD DM MM ANEMIA PLAN O2 NIPPV NEEDED INHALED BRONCHODILATORS RATE CONTROL PER CARDIOLOGY F/U CHEST X-RAYS F/U ABGS MONITOR H+H REPLETE LYTES DR THOMPSON Problem List - Problems (1) COPD (chronic obstructive pulmonary disease) Code(s): J44.9 - CHRONIC OBSTRUCTIVE PULMONARY DISEASE, UNSPECIFIED (2) Chronic a-fib Code(s): I48.2 - CHRONIC ATRIAL FIBRILLATION (3) Pneumonia Code(s): J18.9 - PNEUMONIA, UNSPECIFIED ORGANISM (4) SOB (shortness of breath) Code(s): R06.02 - SHORTNESS OF BREATH (5) Meningioma Code(s): D32.9 - BENIGN NEOPLASM OF MENINGES, UNSPECIFIED (6) Multiple myeloma Code(s): C90.00 - MULTIPLE MYELOMA NOT HAVING ACHIEVED REMISSION Qualifiers: Multiple myeloma remission status: not in remission Qualified Code(s): C90.00 - Multiple myeloma not having achieved remission (7) Acute respiratory failure with hypoxia and hypercapnia Code(s): J96.01 - ACUTE RESPIRATORY FAILURE WITH HYPOXIA; J96.02 - ACUTE RESPIRATORY FAILURE WITH HYPERCAPNIA (8) Congestive heart failure Code(s): I50.9 - HEART FAILURE, UNSPECIFIED Qualifiers: Congestive heart failure type: diastolic Congestive heart failure chronicity: chronic Qualified Code(s): I50.32 - Chronic diastolic (congestive ) heart failure (9) Diabetes mellitus Code(s): E11.9 - TYPE 2 DIABETES MELLITUS WITHOUT COMPLICATIONS
[2017-04-08] MEDS ORDERED: INSULIN (NOVOLOG) ASPART 100 UNITS/ML 10ML VIAL ONE (11:47)
--- NOTE | 2017-04-08 11:47 | PN ---
Progress Note (short form) - Note Progress Note: s: no cp sob palps dizzy o: Vital Signs Period Temp Pulse Resp BP Sys/Nieto Pulse Ox Last 24 Hr 97.7 F-98.6 F 96-116 20-20 122-148/61-84 97-98 NAD, calm JVD flat, neck supple irregularly irregular, nl rate nl s1, s2 2/6 murmur at sternal border and apex dullness at left base, nl eff + bs soft nt nd ext without edema no cyanosis or clubbing no jaundice, diaphoresis Current Medications Generic Name Dose Route Start Last Admin Trade Name Freq PRN Reason Stop Dose Admin Acetaminophen 650 mg 04/02/17 23:43 04/07/17 14:28 Tylenol - PO 650 mg Q12H PRN Administration PAIN Acetaminophen 850 mg 04/05/17 22:41 04/08/17 00:00 Ofirmev Injection - IVPB 850 mg Q8H PRN Administration Acetylcysteine 600 mg 04/06/17 02:00 04/08/17 11:19 Mucomyst 20 Oral / Inh Use Only* NEB 600 mg RQID [facility] Administration Albuterol Sulfate 1 amp 04/02/17 23:43 04/08/17 11:19 Ventolin 0.083% Nebulizer Soln - NEB 1 amp Q6H PRN Administration SHORT OF BREATH/WHEEZING Atorvastatin Calcium 20 mg 04/03/17 22:00 04/07/17 22:10 Lipitor - PO 20 mg HS [facility] Administration Cholecalciferol 2,000 unit 04/03/17 10:00 04/08/17 09:42 Vitamin D3 - PO 2,000 unit DAILY [facility] Administration Diltiazem HCl 60 mg 04/04/17 15:45 04/08/17 06:37 Cardizem - PO 60 mg TID [facility] Administration Docusate Sodium 100 mg 04/03/17 10:00 04/08/17 09:42 Colace - PO 100 mg BID [facility] Administration Furosemide 40 mg 04/05/17 11:15 04/08/17 09:40 Lasix - PO 40 mg DAILY [facility] Administration Guaifenesin 600 mg 04/06/17 01:30 04/08/17 09:40 Mucinex - PO 600 mg BID [facility] Administration Insulin Aspart 1 vial 04/03/17 07:00 04/08/17 06:36 Novolog Vial Sliding Scale - SQ Not Given ACHS [facility] Protocol Lorazepam 0.25 mg 04/03/17 10:00 04/08/17 09:40 Ativan - PO 0.25 mg BID [facility] Administration Metoprolol Succinate 50 mg 04/06/17 10:00 04/08/17 09:40 Toprol Xl - PO 50 mg DAILY [facility] Administration Montelukast Sodium 10 mg 04/03/17 22:00 04/07/17 22:10 Singulair - PO 10 mg HS [facility] Administration Polyethylene Glycol 17 gm 04/03/17 10:00 04/07/17 22:10 Miralax (For Daily Use) - PO 17 grams BID [facility] Administration Pregabalin 50 mg 04/03/17 10:00 04/08/17 09:40 Lyrica - PO 50 mg BID [facility] Administration Propylthiouracil 50 mg 04/03/17 10:00 04/07/17 10:19 Ptu - PO 50 mg DAILY [facility] Administration Warfarin Sodium 3 mg 04/07/17 18:00 04/07/17 17:17 Coumadin - PO 3 mg DAILY@1800 [facility] Administration CBC, BMP 04/08/17 06:25 04/08/17 06:25 - ....Imaging EKG: Other (tele: overall rate controlled afib) EKG: afib, 104 bpm no ischemic changes. Echo 06/2015: afib, nl LV/RV, mild-mod MR/TR, hi LAP, mild ao root dil MIBI 2012: no ST changes, probable breast artifact vs. AW ischemia. Nl EF PFTs 2013: no obstr, mild restr, mild decr DLCO CT chest: severe coronary calcifications. consolidation LEANDRO/LLL. opacities RUL/ RLL ? atx vs scar. no effusions. upper lobe interolbular septal thickening = ? interstitial edema. dilated main PA c/w pulm HTN. repeat cxr 04/07, unchanged. a/p: acute hypoxic resp failure, PNA, sepsis: - lactate elevated initially, with PNA. - spiked to 101.7 on 04/05. - recently euvolemic off of bumex as outpatient (bumex held when here 2017 with progressive myeloma bony pain and poor po, with dehydration and hypercalcemia) - multifactorial chronic sob (copd, diast chf, and ? related to very large hiatal hernia). - here with worsened sob than baseline, CT chest with findings of PNA - nonspecific findings of possible interstitial edema on CT (vs chronic interstitial changes--comparison to prior CT not described on report). in absence of pleural effusions or signs of volume on exam, will not agggressively diurese (hold diuretics) - on abx for PNA - 04/05: overnight signif incr resp distress with very diminished breath sounds. rpt CXR remains prohibitively TDS sec to pt position/rotated, diffuse changes bilat not obviously different vs prior 04/02 (images reviewed). - given lasix 40 ivp, bun/creat ok, BP downtrended but remains >100 syst. standing lasix 40 qd ordered - 04/06-04/08: resp status stable. no JVD appreciated. labs stable. continue lasix 40 po daily. monitor for need to decrease dose (recenly off diuretics as outpatient) - suppl O2, supportive care, abx per hospitalist - AF rate control as doing Afib - controlled at "lenient rate control" targest on home regimen: DILTIAZEM (60 AM , 60 LUNCH, 30 PM) AND LOW DOSE TOPROL (25). (has h/o bradycardia and hypotension of ? etiology--stable long time on reduced med regimen). - 04/04: currently HRs running 120-140 often, in setting of acute PNA this is likely physiologic. - has had no hypotensive episodes here. will incr diltiazem to 60 TID. - also note she is receiving lopressor 25 qd not toprol--hence early AM tachy is related to clearance of short-acting drug formulation. change back to toprol 25 qd - 04/05: HR now well controlled with above adjustments, cont same meds. - 04/06: HR tachy again overnight in setting of fever (prn dose of extra toprol given, and incr'd daily dose to 50 qd). HR well controlled since. - same meds (toprol 50 qd, dilt 60 tid). suspect will be able to go back down to prior home dose once PNA resolves. - 04/07-: HR improving on higher toprol dose. con't same meds. aggressive lyte repletion. - cont coumadin (goal INR 2-3), dose prn daily levels - pain control per pmd. mild-mod MR - functional, likely related to volume status - echo 06/2015 stable anemia/multiple myeloma - 2/2 multiple myeloma. heme following. - complicated by vertebral fractures. currently on home hospice per cards office notes. - counts stable around 7-8, monitor on coumadin Emphysema - per pmd +/- pulm
[2017-04-08] MEDS ORDERED: POTASSIUM PHOSPHATE 16 MM in SODIUM CHLORIDE 250 ML IVPB ONE (11:50)
[2017-04-08] MEDS ORDERED: MAGNESIUM SULF 50% (8.12 MEQ/2 ML-1 GM VIAL) IVPB ONE (11:50)
[2017-04-08] MEDS ORDERED: WARFARIN NA 5 MG TABLET (UD) PO SCH (11:51)
--- NOTE | 2017-04-08 11:52 | PN ---
Progress Note, Physician Chief Complaint: Unable to obtain, patient remains confused today - Current Medication List Current Medications: Active Medications Acetaminophen (Tylenol -) 650 mg PO Q12H PRN PRN Reason: PAIN Last Admin: 04/07/17 14:28 Dose: 650 mg Acetaminophen (Ofirmev Injection -) 850 mg IVPB Q8H PRN Last Admin: 04/08/17 00:00 Dose: 850 mg Acetylcysteine (Mucomyst 20 Oral / Inh Use Only*) 600 mg NEB RQID [facility] Last Admin: 04/08/17 11:19 Dose: 600 mg Albuterol Sulfate (Ventolin 0.083% Nebulizer Soln -) 1 amp NEB Q6H PRN PRN Reason: SHORT OF BREATH/WHEEZING Last Admin: 04/08/17 11:19 Dose: 1 amp Atorvastatin Calcium (Lipitor -) 20 mg PO HS [facility] Last Admin: 04/07/17 22:10 Dose: 20 mg Cholecalciferol (Vitamin D3 -) 2,000 unit PO DAILY [facility] Last Admin: 04/08/17 09:42 Dose: 2,000 unit Diltiazem HCl (Cardizem -) 60 mg PO TID [facility] Last Admin: 04/08/17 06:37 Dose: 60 mg Docusate Sodium (Colace -) 100 mg PO BID [facility] Last Admin: 04/08/17 09:42 Dose: 100 mg Furosemide (Lasix -) 40 mg PO DAILY [facility] Last Admin: 04/08/17 09:40 Dose: 40 mg Guaifenesin (Mucinex -) 600 mg PO BID [facility] Last Admin: 04/08/17 09:40 Dose: 600 mg Potassium Phosphate 16 mm/ (Sodium Chloride) 255.3333 mls @ 62.5 mls/hr IVPB ONCE ONE Stop: 04/08/17 15:55 Insulin Aspart (Novolog Vial Sliding Scale -) 1 vial SQ ACHS [facility] PRN Reason: Protocol Last Admin: 04/08/17 06:36 Dose: Not Given Lorazepam (Ativan -) 0.25 mg PO BID [facility] Last Admin: 04/08/17 09:40 Dose: 0.25 mg Magnesium Sulfate (Magnesium Sulfate) 2 gm IVPB ONCE ONE Stop: 04/08/17 11:51 Metoprolol Succinate (Toprol Xl -) 50 mg PO DAILY [facility] Last Admin: 01/17/18 09:40 Dose: 50 mg Montelukast Sodium (Singulair -) 10 mg PO HS [facility] Last Admin: 04/07/17 22:10 Dose: 10 mg Polyethylene Glycol (Miralax (For Daily Use) -) 17 gm PO BID [facility] Last Admin: 04/07/17 22:10 Dose: 17 grams Pregabalin (Lyrica -) 50 mg PO BID [facility] Last Admin: 04/08/17 09:40 Dose: 50 mg Propylthiouracil (Ptu -) 50 mg PO DAILY [facility] Last Admin: 04/07/17 10:19 Dose: 50 mg Warfarin Sodium (Coumadin -) 5 mg PO DAILY@1800 [facility] - Objective Vital Signs: Vital Signs Temperature 36.8 C 04/08/17 09:00 Pulse Rate 107 H 04/08/17 09:00 Respiratory Rate 20 04/08/17 09:00 Blood Pressure 123/72 04/08/17 09:00 O2 Sat by Pulse Oximetry (%) 97 04/08/17 09:00 Constitutional: Yes: Well Nourished, No Distress, Calm, Thin (confused) Cardiovascular: Yes: Regular Rate and Rhythm. No: Gallop, Murmur, Rub Respiratory: Yes: Regular, On Nasal O2, Rhonchi. No: CTA Bilaterally, Rales, Wheezes Gastrointestinal: Yes: Normal Bowel Sounds, Soft. No: Distention, Tenderness Extremities: Yes: WNL Edema: No Labs: CBC, BMP 04/08/17 06:25 04/08/17 06:25 INR, PTT INR 1.48 (0.82-1.09) H 04/08/17 06:25 Problem List - Problems (1) Diverticulitis Code(s): K57.92 - DVTRCLI OF INTEST, PART UNSP, W/O PERF OR ABSCESS W/O BLEED (2) Pneumonia Code(s): J18.9 - PNEUMONIA, UNSPECIFIED ORGANISM (3) Vertebral fracture Code(s): BOU1661 - Qualifiers: Encounter type: initial encounter Fracture of vertebra location: lumbar Lumbar vertebra fracture level: unspecified lumbar vertebra Fracture type: closed Fracture morphology: other fracture Qualified Code(s): S32.008A - Other fracture of unspecified lumbar vertebra, initial encounter for closed fracture (4) Atrial fibrillation Code(s): I48.91 - UNSPECIFIED ATRIAL FIBRILLATION Qualifiers: Atrial fibrillation type: chronic Qualified Code(s): I48.2 - Chronic atrial fibrillation (5) Atypical chest pain Code(s): R07.89 - OTHER CHEST PAIN (6) COPD (chronic obstructive pulmonary disease) Code(s): J44.9 - CHRONIC OBSTRUCTIVE PULMONARY DISEASE, UNSPECIFIED (7) Congestive heart failure Code(s): I50.9 - HEART FAILURE, UNSPECIFIED Qualifiers: Congestive heart failure type: diastolic Congestive heart failure chronicity: chronic Qualified Code(s): I50.32 - Chronic diastolic (congestive ) heart failure (8) Diabetes mellitus Code(s): E11.9 - TYPE 2 DIABETES MELLITUS WITHOUT COMPLICATIONS (9) Hyperlipidemia Code(s): E78.5 - HYPERLIPIDEMIA, UNSPECIFIED (10) Multiple myeloma Code(s): C90.00 - MULTIPLE MYELOMA NOT HAVING ACHIEVED REMISSION Qualifiers: Multiple myeloma remission status: not in remission Qualified Code(s): C90.00 - Multiple myeloma not having achieved remission (11) Metabolic encephalopathy Code(s): G93.41 - METABOLIC ENCEPHALOPATHY Assessment/Plan (1) Diverticulitis Assessment/Plan -resolved Code(s): K57.92 - DVTRCLI OF INTEST, PART UNSP, W/O PERF OR ABSCESS W/O BLEED (2) Pneumonia Assessment/Plan: -no clinical signs of sepsis -concern for aspiration -case d/w speech therapy -family currently declining modified barium swallow -place on minced diet with nectar thick liquid -continue to monitor off antibiotics Code(s): J18.9 - PNEUMONIA, UNSPECIFIED ORGANISM (3) Vertebral fracture Assessment/Plan: -pain better controlled today -continue IV tylenol Code(s): [id number] - Qualifiers: Encounter type: initial encounter Fracture of vertebra location: lumbar Lumbar vertebra fracture level: unspecified lumbar vertebra Fracture type: closed Fracture morphology: other fracture Qualified Code(s): S32.008A - Other fracture of unspecified lumbar vertebra, initial encounter for closed fracture (4) Atrial fibrillation Assessment/Plan: -cardiology following -continue metoprolol and diltiazem -increase coumadin today -daily INR Code(s): I48.91 - UNSPECIFIED ATRIAL FIBRILLATION Qualifiers: Atrial fibrillation type: chronic Qualified Code(s): I48.2 - Chronic atrial fibrillation (5) Atypical chest pain Assessment/Plan: -controlled Code(s): R07.89 - OTHER CHEST PAIN (6) COPD (chronic obstructive pulmonary disease) Assessment/Plan: -case d/w pulmonary -repeat chest x-ray reviewed -CPAP as needed Code(s): J44.9 - CHRONIC OBSTRUCTIVE PULMONARY DISEASE, UNSPECIFIED (7) Congestive heart failure Assessment/Plan: -cardiology following and appreciate assistance Code(s): I50.9 - HEART FAILURE, UNSPECIFIED Qualifiers: Congestive heart failure type: diastolic Congestive heart failure chronicity: chronic Qualified Code(s): I50.32 - Chronic diastolic (congestive ) heart failure (8) Diabetes mellitus Assessment/Plan: -monitor now on diet -diabetic diet, changed to dysphagia as above Code(s): E11.9 - TYPE 2 DIABETES MELLITUS WITHOUT COMPLICATIONS (9) Hyperlipidemia Assessment/Plan: -hold lipitor currently Code(s): E78.5 - HYPERLIPIDEMIA, UNSPECIFIED (10) Multiple myeloma Assessment/Plan: -oncology consulted and following Code(s): C90.00 - MULTIPLE MYELOMA NOT HAVING ACHIEVED REMISSION Qualifiers: Multiple myeloma remission status: not in remission Qualified Code(s): C90.00 - Multiple myeloma not having achieved remission (11) Metabolic encephalopathy -monitor for improvement
[2017-04-08] MEDS ORDERED: MAGNESIUM SULFATE IN WATER 2 GM/50 ML IVPB IVPB ONE (12:00)
[2017-04-08] MEDS ORDERED: PT OWN MED DRAWER 7, Y5N ONE (12:11)
[2017-04-08] MEDS: PROPYLTHIOURACIL 50 MG TABLET (UD) PO SCH (12:18)
[2017-04-08] MEDS: ACETAMINOPHEN 1000 MG/100 ML VIAL (NON FORMULARY) IVPB PRN ×3 (12:30→20:38)
--- NOTE | 2017-04-08 13:05 | PN ---
Progress Note, PHYSIOTHERAPY AIDE - Note Progress Note: Per staff, family would like to defer MBS at this time. Selected Entries 04/07/17 04/07/17 04/07/17 02:00 05:51 10:43 Breakfast 75% Lunch Temperature 98.1 F 98.1 F 04/07/17 04/07/17 04/07/17 13:49 13:58 18:00 Breakfast Lunch 25% Temperature 98.0 F 98.6 F 04/07/17 04/08/17 04/08/17 22:00 05:50 09:00 Breakfast Lunch Temperature 97.7 F 97.7 F 98.3 F 04/08/17 11:47 Breakfast 25% Lunch Temperature Laboratory Tests 04/08/17 06:25 WBC 8.2 D Suggest dys minced/nectar thick liquid, ensure compact.
[2017-04-08] MEDS: ATORVASTATIN CA 20 MG TABLET (FP) PO SCH (21:04)
[2017-04-08] MEDS: MONTELUKAST NA 10 MG TABLET PO SCH (21:04)
[2017-04-09] MEDS: INSULIN SLIDING SCALE (NOVOLOG) 1 VIAL SQ SCH ×4 (06:19→22:58)
[2017-04-09] MEDS: dilTIAZem HCL 60 MG TABLET (FP) PO SCH ×3 (06:37→23:10)
[2017-04-09] MEDS ORDERED: PT OWN MED DRAWER 7, Y5N ONE ×3 (06:42→22:44)
[2017-04-09 06:50] LABS: INR 1.5 (0.82-1.09)
[2017-04-09 06:52] LABS: HEMATOCRIT 25.6 % (32.4-45.2); HEMOGLOBIN 8.2 GM/dL (10.7-15.3); MCH 28.5 pg (25.7-33.7); MCHC 31.9 g/dl (32.0-36.0); MEAN CELL VOLUME 89.5 fl (80-96); MEAN PLT VOLUME 9.6 fl (7.5-11.1); PLATELET COUNT 172 K/MM3 (134-434); RBC 2.86 M/mm3 (3.60-5.2); RDW 20.4 % (11.6-15.6); WHITE BLOOD COUNT 4.8 K/mm3 (4.0-10.0)
[2017-04-09 08:00] LABS: ANION GAP 5 (8-16); BLOOD UREA NITROGEN 20 mg/dL (7-18); CALCIUM 7.7 mg/dL (8.5-10.1); CHLORIDE 105 mmol/L (98-107); CO2 34 mmol/L (21-32); CREATININE 0.8 mg/dL (0.55-1.02); GLUCOSE,RANDOM 95 mg/dL (74-106); MAGNESIUM 1.8 mg/dL (1.8-2.4); PHOSPHOROUS 1.5 mg/dL (2.5-4.9); POTASSIUM 3.8 mmol/L (3.5-5.1); SODIUM 144 mmol/L (136-145)
[2017-04-09] MEDS: ALBUTEROL SO4 0.083% IH SOL 2.5 MG/3 ML VIAL.NEB. NEB PRN ×4 (08:30→21:45)
[2017-04-09] MEDS: ACETYLCYSTEINE 20% 200MG/ML 30 ML VIAL *FOR ORAL / INH USE ONLY NEB SCH ×4 (08:30→21:45)
--- NOTE | 2017-04-09 09:08 | PN ---
Progress Note (short form) - Note Progress Note: Last Vital Signs Temp Pulse Resp BP Pulse Ox 97.3 F L 109 H 20 137/93 98 04/09/17 08:23 04/09/17 08:23 04/09/17 08:23 04/09/17 08:23 04/08/17 21:00 CBC, BMP 04/09/17 05:10 04/09/17 05:10 Current Medications Generic Name Dose Route Start Last Admin Trade Name Freq PRN Reason Stop Dose Admin Acetaminophen 650 mg 04/02/17 23:43 04/07/17 14:28 Tylenol - PO 650 mg Q12H PRN Administration PAIN Acetaminophen 850 mg 04/05/17 22:41 04/08/17 20:38 Ofirmev Injection - IVPB 850 mg Q8H PRN Administration Acetylcysteine 600 mg 04/06/17 02:00 04/08/17 20:55 Mucomyst 20 Oral / Inh Use Only* NEB 600 mg RQID [facility] Administration Albuterol Sulfate 1 amp 04/02/17 23:43 04/08/17 20:55 Ventolin 0.083% Nebulizer Soln - NEB 1 amp Q6H PRN Administration SHORT OF BREATH/WHEEZING Atorvastatin Calcium 20 mg 04/03/17 22:00 04/08/17 21:04 Lipitor - PO 20 mg HS [facility] Administration Cholecalciferol 2,000 unit 04/03/17 10:00 04/08/17 09:42 Vitamin D3 - PO 2,000 unit DAILY [facility] Administration Diltiazem HCl 60 mg 04/04/17 15:45 04/09/17 06:37 Cardizem - PO 60 mg TID [facility] Administration Docusate Sodium 100 mg 04/03/17 10:00 04/08/17 21:04 Colace - PO Not Given BID [facility] Furosemide 40 mg 04/05/17 11:15 04/08/17 09:40 Lasix - PO 40 mg DAILY [facility] Administration Guaifenesin 600 mg 04/06/17 01:30 04/08/17 21:04 Mucinex - PO 600 mg BID [facility] Administration Insulin Aspart 1 vial 04/03/17 07:00 04/09/17 06:19 Novolog Vial Sliding Scale - SQ Not Given ACHS [facility] Protocol Lorazepam 0.25 mg 04/03/17 10:00 04/08/17 21:03 Ativan - PO 0.25 mg BID [facility] Administration Metoprolol Succinate 50 mg 04/06/17 10:00 04/08/17 09:40 Toprol Xl - PO 50 mg DAILY [facility] Administration Montelukast Sodium 10 mg 04/03/17 22:00 04/08/17 21:04 Singulair - PO 10 mg HS [facility] Administration Polyethylene Glycol 17 gm 04/03/17 10:00 04/08/17 21:04 Miralax (For Daily Use) - PO Not Given BID [facility] Pregabalin 50 mg 04/03/17 10:00 04/08/17 21:03 Lyrica - PO 50 mg BID [facility] Administration Propylthiouracil 50 mg 04/03/17 10:00 04/08/17 12:18 Ptu - PO 50 mg DAILY [facility] Administration Warfarin Sodium 5 mg 04/08/17 11:51 04/08/17 17:23 Coumadin - PO 5 mg DAILY@1800 [facility] Administration
[2017-04-09] MEDS: PROPYLTHIOURACIL 50 MG TABLET (UD) PO SCH (09:23)
[2017-04-09] MEDS: CHOLECALCIFEROL (VITAMIN D3) 1,000 UNIT TABLET (FP) PO SCH (09:23)
[2017-04-09] MEDS: FUROSEMIDE 40 MG TABLET (FP) PO SCH (09:24)
[2017-04-09] MEDS: METOPROLOL SUCCINATE 50 MG TAB.SR.24H (FP) PO SCH (09:24)
[2017-04-09] MEDS: PREGABALIN 50 MG CAPSULE PO SCH ×2 (09:24→23:09)
[2017-04-09] MEDS: guaiFENesin 600 MG TABLET.ER (FP) PO SCH ×2 (09:24→23:10)
[2017-04-09] MEDS: DOCUSATE SODIUM 100 MG CAPSULE (FP) PO SCH ×2 (09:25→22:58)
[2017-04-09] MEDS: POLYETHYLENE GLYCOL 3350 119 GM BTL PO SCH ×2 (09:25→22:58)
[2017-04-09] MEDS ORDERED: POTASSIUM PHOSPHATE 16 MM in SODIUM CHLORIDE 250 ML IVPB ONE (10:26)
[2017-04-09] MEDS: ACETAMINOPHEN 325 MG TABLET (FP) PO PRN (10:47)
--- NOTE | 2017-04-09 10:53 | PN ---
Progress Note, ASSEMBLY SUPERVISOR - Note Progress Note: Selected Entries 04/08/17 04/08/17 04/08/17 02:00 05:50 09:00 Supper Temperature 98.2 F 97.7 F 98.3 F 04/08/17 04/08/17 04/08/17 18:00 20:00 20:36 Supper 25% Temperature 99.1 F 99.4 F 04/09/17 04/09/17 04/09/17 02:00 05:51 08:23 Supper Temperature 97 F L 98.1 F 97.3 F L Laboratory Tests 04/09/17 05:10 WBC 4.8 D Case reviewed with staff. Pt reported to be in pain, not accepting much by mouth. With medication, too lethargic to eat. Encourage Ensure Compact when sufficiently alert.
[2017-04-09] MEDS: LORazepam 0.5 MG TABLET PO SCH ×2 (10:56→23:10)
--- NOTE | 2017-04-09 11:00 | PN ---
Progress Note, Physician Chief Complaint: Unable to obtain, patient very altered today - Current Medication List Current Medications: Active Medications Acetaminophen (Tylenol -) 650 mg PO Q12H PRN PRN Reason: PAIN Last Admin: 04/09/17 10:47 Dose: 650 mg Acetaminophen (Ofirmev Injection -) 850 mg IVPB Q8H PRN Last Admin: 04/08/17 20:38 Dose: 850 mg Acetylcysteine (Mucomyst 20 Oral / Inh Use Only*) 600 mg NEB RQID [facility] Last Admin: 04/09/17 08:30 Dose: 600 mg Albuterol Sulfate (Ventolin 0.083% Nebulizer Soln -) 1 amp NEB Q6H PRN PRN Reason: SHORT OF BREATH/WHEEZING Last Admin: 04/09/17 08:30 Dose: 1 amp Atorvastatin Calcium (Lipitor -) 20 mg PO [facility] Last Admin: 04/08/17 21:04 Dose: 20 mg Cholecalciferol (Vitamin D3 -) 2,000 unit PO DAILY [facility] Last Admin: 04/09/17 09:23 Dose: 2,000 unit Diltiazem HCl (Cardizem -) 60 mg PO TID [facility] Last Admin: 04/09/17 06:37 Dose: 60 mg Docusate Sodium (Colace -) 100 mg PO BID [facility] Last Admin: 04/09/17 09:25 Dose: Not Given Furosemide (Lasix -) 40 mg PO DAILY [facility] Last Admin: 04/09/17 09:24 Dose: 40 mg Guaifenesin (Mucinex -) 600 mg PO BID [facility] Last Admin: 04/09/17 09:24 Dose: 600 mg Potassium Phosphate 16 mm/ (Sodium Chloride) 255.3333 mls @ 62.5 mls/hr IVPB ONCE ONE Stop: 04/09/17 14:31 Insulin Aspart (Novolog Vial Sliding Scale -) 1 vial SQ ACHS [facility] PRN Reason: Protocol Last Admin: 04/09/17 06:19 Dose: Not Given Lorazepam (Ativan -) 0.25 mg PO BID [facility] Last Admin: 04/09/17 10:56 Dose: 0.25 mg Metoprolol Succinate (Toprol Xl -) 50 mg PO DAILY [facility] Last Admin: 04/09/17 09:24 Dose: 50 mg Montelukast Sodium (Singulair -) 10 mg PO [facility] Last Admin: 04/08/17 21:04 Dose: 10 mg Polyethylene Glycol (Miralax (For Daily Use) -) 17 gm PO BID [facility] Last Admin: 04/09/17 09:25 Dose: Not Given Pregabalin (Lyrica -) 50 mg PO BID [facility] Last Admin: 04/09/17 09:24 Dose: 50 mg Propylthiouracil (Ptu -) 50 mg PO DAILY [facility] Last Admin: 04/09/17 09:23 Dose: 50 mg Warfarin Sodium (Coumadin -) 7.5 mg PO DAILY@1800 [facility] - Objective Vital Signs: Vital Signs Temperature 36.3 C L 04/09/17 08:23 Pulse Rate 111 H 04/09/17 08:30 Respiratory Rate 20 04/09/17 08:23 Blood Pressure 137/93 04/09/17 08:23 O2 Sat by Pulse Oximetry (%) 98 04/09/17 08:30 Constitutional: Yes: Other (confused, lethargic) Cardiovascular: Yes: Tachycardia, Pulse Irregular. No: Gallop, Murmur, Rub Respiratory: Yes: Regular, On Nasal O2, Rhonchi (left base). No: CTA Bilaterally, Rales, Wheezes Gastrointestinal: Yes: Normal Bowel Sounds, Soft. No: Distention, Tenderness Extremities: Yes: WNL Edema: No Labs: CBC, BMP 04/09/17 05:10 04/09/17 05:10 INR, PTT INR 1.50 (0.82-1.09) H 04/09/17 05:10 Problem List - Problems (1) Diverticulitis Code(s): K57.92 - DVTRCLI OF INTEST, PART UNSP, W/O PERF OR ABSCESS W/O BLEED (2) Pneumonia Code(s): J18.9 - PNEUMONIA, UNSPECIFIED ORGANISM (3) Vertebral fracture Code(s): [id number] - Qualifiers: Encounter type: initial encounter Fracture of vertebra location: lumbar Lumbar vertebra fracture level: unspecified lumbar vertebra Fracture type: closed Fracture morphology: other fracture Qualified Code(s): S32.008A - Other fracture of unspecified lumbar vertebra, initial encounter for closed fracture (4) Atrial fibrillation Code(s): I48.91 - UNSPECIFIED ATRIAL FIBRILLATION Qualifiers: Atrial fibrillation type: chronic Qualified Code(s): I48.2 - Chronic atrial fibrillation (5) Atypical chest pain Code(s): R07.89 - OTHER CHEST PAIN (6) COPD (chronic obstructive pulmonary disease) Code(s): J44.9 - CHRONIC OBSTRUCTIVE PULMONARY DISEASE, UNSPECIFIED (7) Congestive heart failure Code(s): I50.9 - HEART FAILURE, UNSPECIFIED Qualifiers: Congestive heart failure type: diastolic Congestive heart failure chronicity: chronic Qualified Code(s): I50.32 - Chronic diastolic (congestive ) heart failure (8) Diabetes mellitus Code(s): E11.9 - TYPE 2 DIABETES MELLITUS WITHOUT COMPLICATIONS (9) Hyperlipidemia Code(s): E78.5 - HYPERLIPIDEMIA, UNSPECIFIED (10) Multiple myeloma Code(s): C90.00 - MULTIPLE MYELOMA NOT HAVING ACHIEVED REMISSION Qualifiers: Multiple myeloma remission status: not in remission Qualified Code(s): C90.00 - Multiple myeloma not having achieved remission (11) Metabolic encephalopathy Code(s): G93.41 - METABOLIC ENCEPHALOPATHY Assessment/Plan (1) Diverticulitis Assessment/Plan -resolved Code(s): K57.92 - DVTRCLI OF INTEST, PART UNSP, W/O PERF OR ABSCESS W/O BLEED (2) Sepsis Assessment/Plan: -patient now with AMS and fevers -also with significant drop in WBCs -remains tachycardic -check blood and urine cultures -check chest x-ray -re-consult ID, may need further antibiotics Code(s): J18.9 - PNEUMONIA, UNSPECIFIED ORGANISM (3) Vertebral fracture Assessment/Plan: -continue IV tylenol Code(s): [id number] - Qualifiers: Encounter type: initial encounter Fracture of vertebra location: lumbar Lumbar vertebra fracture level: unspecified lumbar vertebra Fracture type: closed Fracture morphology: other fracture Qualified Code(s): S32.008A - Other fracture of unspecified lumbar vertebra, initial encounter for closed fracture (4) Atrial fibrillation Assessment/Plan: -cardiology following -continue metoprolol and diltiazem -increase coumadin, INR remains subtherapeutic -see cardiology discontinuation of telemetry but patient worsening and becoming septic, will continue Code(s): I48.91 - UNSPECIFIED ATRIAL FIBRILLATION Qualifiers: Atrial fibrillation type: chronic Qualified Code(s): I48.2 - Chronic atrial fibrillation (5) Atypical chest pain Assessment/Plan: -controlled Code(s): R07.89 - OTHER CHEST PAIN (6) COPD (chronic obstructive pulmonary disease) Assessment/Plan: -repeat chest x-ray Code(s): J44.9 - CHRONIC OBSTRUCTIVE PULMONARY DISEASE, UNSPECIFIED (7) Congestive heart failure Assessment/Plan: -cardiology following and appreciate assistance Code(s): I50.9 - HEART FAILURE, UNSPECIFIED Qualifiers: Congestive heart failure type: diastolic Congestive heart failure chronicity: chronic Qualified Code(s): I50.32 - Chronic diastolic (congestive ) heart failure (8) Diabetes mellitus Assessment/Plan: -monitor now on diet -diabetic diet, changed to dysphagia as above Code(s): E11.9 - TYPE 2 DIABETES MELLITUS WITHOUT COMPLICATIONS (9) Hyperlipidemia Assessment/Plan: -hold lipitor currently Code(s): E78.5 - HYPERLIPIDEMIA, UNSPECIFIED (10) Multiple myeloma Assessment/Plan: -oncology consulted and following Code(s): C90.00 - MULTIPLE MYELOMA NOT HAVING ACHIEVED REMISSION Qualifiers: Multiple myeloma remission status: not in remission Qualified Code(s): C90.00 - Multiple myeloma not having achieved remission (11) Metabolic encephalopathy -recurrence -secondary to sepsis -as above
--- NOTE | 2017-04-09 11:49 | PN ---
Progress Note (short form) - Note Progress Note: s: lethargic today, not answering questions o: Vital Signs Period Temp Pulse Resp BP Sys/Nieto Pulse Ox Last 24 Hr 97 F-99.4 F 103-126 20-20 112-150/65-102 98-98 NAD, calm JVD flat, neck supple irregularly irregular, nl rate nl s1, s2 2/6 murmur at sternal border and apex dullness at left base, nl eff + bs soft nt nd ext without edema no cyanosis or clubbing no jaundice, diaphoresis Current Medications Generic Name Dose Route Start Last Admin Trade Name Freq PRN Reason Stop Dose Admin Acetaminophen 650 mg 04/02/17 23:43 04/09/17 10:47 Tylenol - PO 650 mg Q12H PRN Administration PAIN Acetaminophen 850 mg 04/05/17 22:41 04/08/17 20:38 Ofirmev Injection - IVPB 850 mg Q8H PRN Administration Acetylcysteine 600 mg 04/06/17 02:00 04/09/17 08:30 Mucomyst 20 Oral / Inh Use Only* NEB 600 mg RQID [facility] Administration Albuterol Sulfate 1 amp 04/02/17 23:43 04/09/17 08:30 Ventolin 0.083% Nebulizer Soln - NEB 1 amp Q6H PRN Administration SHORT OF BREATH/WHEEZING Atorvastatin Calcium 20 mg 04/03/17 22:00 04/08/17 21:04 Lipitor - PO 20 mg HS [facility] Administration Cholecalciferol 2,000 unit 04/03/17 10:00 04/09/17 09:23 Vitamin D3 - PO 2,000 unit DAILY [facility] Administration Diltiazem HCl 60 mg 04/04/17 15:45 04/09/17 06:37 Cardizem - PO 60 mg TID [facility] Administration Docusate Sodium 100 mg 04/03/17 10:00 04/09/17 09:25 Colace - PO Not Given BID [facility] Furosemide 40 mg 04/05/17 11:15 04/09/17 09:24 Lasix - PO 40 mg DAILY [facility] Administration Guaifenesin 600 mg 04/06/17 01:30 04/09/17 09:24 Mucinex - PO 600 mg BID [facility] Administration Potassium Phosphate 16 mm/ 255.3333 mls @ 62.5 mls/hr 04/09/17 10:26 Sodium Chloride IVPB 04/09/17 14:31 ONCE ONE Insulin Aspart 1 vial 04/03/17 07:00 04/09/17 06:19 Novolog Vial Sliding Scale - SQ Not Given ACHS [facility] Protocol Lorazepam 0.25 mg 04/03/17 10:00 04/09/17 10:56 Ativan - PO 0.25 mg BID [facility] Administration Metoprolol Succinate 50 mg 04/06/17 10:00 04/09/17 09:24 Toprol Xl - PO 50 mg DAILY [facility] Administration Montelukast Sodium 10 mg 04/03/17 22:00 04/08/17 21:04 Singulair - PO 10 mg HS [facility] Administration Polyethylene Glycol 17 gm 04/03/17 10:00 04/09/17 09:25 Miralax (For Daily Use) - PO Not Given BID [facility] Pregabalin 50 mg 04/03/17 10:00 04/09/17 09:24 Lyrica - PO 50 mg BID [facility] Administration Propylthiouracil 50 mg 04/03/17 10:00 04/09/17 09:23 Ptu - PO 50 mg DAILY [facility] Administration Warfarin Sodium 7.5 mg 04/09/17 10:26 Coumadin - PO DAILY@1800 [facility] - ....Imaging EKG: Other (tele: overall rate controlled afib) EKG: afib, 104 bpm no ischemic changes. Echo 06/2015: afib, nl LV/RV, mild-mod MR/TR, hi LAP, mild ao root dil MIBI 2012: no ST changes, probable breast artifact vs. AW ischemia. Nl EF PFTs 2013: no obstr, mild restr, mild decr DLCO CT chest: severe coronary calcifications. consolidation LEANDRO/LLL. opacities RUL/ RLL ? atx vs scar. no effusions. upper lobe interolbular septal thickening = ? interstitial edema. dilated main PA c/w pulm HTN. repeat cxr 04/07, unchanged. a/p: acute hypoxic resp failure, PNA, sepsis: - lactate elevated initially, with PNA. - spiked to 101.7 on 04/05. - recently euvolemic off of bumex as outpatient (bumex held when here 2017 with progressive myeloma bony pain and poor po, with dehydration and hypercalcemia) - multifactorial chronic sob (copd, diast chf, and ? related to very large hiatal hernia). - here with worsened sob than baseline, CT chest with findings of PNA - nonspecific findings of possible interstitial edema on CT (vs chronic interstitial changes--comparison to prior CT not described on report). in absence of pleural effusions or signs of volume on exam, will not agggressively diurese (hold diuretics) - on abx for PNA - 04/05: overnight signif incr resp distress with very diminished breath sounds. rpt CXR remains prohibitively TDS sec to pt position/rotated, diffuse changes bilat not obviously different vs prior 04/02 (images reviewed). - given lasix 40 ivp, bun/creat ok, BP downtrended but remains >100 syst. standing lasix 40 qd ordered - 04/06-04/09: resp status stable. no JVD appreciated. labs stable. continue lasix 40 po daily. monitor for need to decrease dose (recenly off diuretics as outpatient) - suppl O2, supportive care, abx per hospitalist - AF rate control as doing Afib - controlled at "lenient rate control" targest on home regimen: DILTIAZEM (60 AM , 60 LUNCH, 30 PM) AND LOW DOSE TOPROL (25). (has h/o bradycardia and hypotension of ? etiology--stable long time on reduced med regimen). - 04/04: currently HRs running 120-140 often, in setting of acute PNA this is likely physiologic. - has had no hypotensive episodes here. will incr diltiazem to 60 TID. - also note she is receiving lopressor 25 qd not toprol--hence early AM tachy is related to clearance of short-acting drug formulation. change back to toprol 25 qd - 04/05: HR now well controlled with above adjustments, cont same meds. - 04/06: HR tachy again overnight in setting of fever (prn dose of extra toprol given, and incr'd daily dose to 50 qd). HR well controlled since. - same meds (toprol 50 qd, dilt 60 tid). suspect will be able to go back down to prior home dose once PNA resolves. - 04/07-: HR improved on higher toprol dose. con't same meds. - cont coumadin (goal INR 2-3), dose prn daily levels - pain control per pmd. mild-mod MR - functional, likely related to volume status - echo 06/2015 stable anemia/multiple myeloma - 2/2 multiple myeloma. heme following. - complicated by vertebral fractures. currently on home hospice per cards office notes. - counts stable around 7-8, monitor on coumadin Emphysema - per pmd +/- pulm dc tele
[2017-04-09 12:25] LABS: ACANTHOCYTES 1+; ANISOCYTOSIS 2+; MACROCYTOSIS 0; OVALOCYTE 2+; PLATELET ESTIMATE NORMAL
[2017-04-09] MEDS: ACETAMINOPHEN 1000 MG/100 ML VIAL (NON FORMULARY) IVPB PRN (12:43)
--- NOTE | 2017-04-09 14:27 | PN ---
Progress Note (short form) - Note Progress Note: Breathing nonlabored. Drowsy and confused. Intake & Output 04/06/17 04/07/17 04/08/17 04/09/17 23:59 23:59 23:59 23:59 Intake Total 50 510 500 10 Output Total 1250 900 800 Balance -1200 -390 -300 10 Last Vital Signs Temp Pulse Resp BP Pulse Ox 101.1 F H 115 H 22 137/93 98 04/09/17 12:50 04/09/17 12:50 04/09/17 12:50 04/09/17 08:23 04/09/17 09:00 Active Medications Acetaminophen (Tylenol -) 650 mg PO Q12H PRN PRN Reason: PAIN Last Admin: 04/09/17 10:47 Dose: 650 mg Acetaminophen (Ofirmev Injection -) 850 mg IVPB Q8H PRN Last Admin: 04/09/17 12:43 Dose: 850 mg Acetylcysteine (Mucomyst 20 Oral / Inh Use Only*) 600 mg NEB RQID [facility] Last Admin: 04/09/17 12:08 Dose: 600 mg Albuterol Sulfate (Ventolin 0.083% Nebulizer Soln -) 1 amp NEB Q6H PRN PRN Reason: SHORT OF BREATH/WHEEZING Last Admin: 04/09/17 12:09 Dose: 1 amp Atorvastatin Calcium (Lipitor -) 20 mg PO HS [facility] Last Admin: 04/08/17 21:04 Dose: 20 mg Cholecalciferol (Vitamin D3 -) 2,000 unit PO DAILY [facility] Last Admin: 04/09/17 09:23 Dose: 2,000 unit Diltiazem HCl (Cardizem -) 60 mg PO TID [facility] Last Admin: 04/09/17 14:11 Dose: 60 mg Docusate Sodium (Colace -) 100 mg PO BID [facility] Last Admin: 04/09/17 09:25 Dose: Not Given Furosemide (Lasix -) 40 mg PO DAILY [facility] Last Admin: 04/09/17 09:24 Dose: 40 mg Guaifenesin (Mucinex -) 600 mg PO BID [facility] Last Admin: 04/09/17 09:24 Dose: 600 mg Potassium Phosphate 16 mm/ (Sodium Chloride) 255.3333 mls @ 62.5 mls/hr IVPB ONCE ONE Stop: 04/09/17 14:31 Last Admin: 04/09/17 12:36 Dose: 62.5 mls/hr Insulin Aspart (Novolog Vial Sliding Scale -) 1 vial SQ ACHS [facility] PRN Reason: Protocol Last Admin: 04/09/17 11:47 Dose: 2 units Lorazepam (Ativan -) 0.25 mg PO BID [facility] Last Admin: 04/09/17 10:56 Dose: 0.25 mg Metoprolol Succinate (Toprol Xl -) 50 mg PO DAILY [facility] Last Admin: 04/09/17 09:24 Dose: 50 mg Montelukast Sodium (Singulair -) 10 mg PO HS [facility] Last Admin: 04/08/17 21:04 Dose: 10 mg Polyethylene Glycol (Miralax (For Daily Use) -) 17 gm PO BID [facility] Last Admin: 04/09/17 09:25 Dose: Not Given Pregabalin (Lyrica -) 50 mg PO BID [facility] Last Admin: 04/09/17 09:24 Dose: 50 mg Propylthiouracil (Ptu -) 50 mg PO DAILY [facility] Last Admin: 04/09/17 09:23 Dose: 50 mg Warfarin Sodium (Coumadin -) 7.5 mg PO DAILY@1800 [facility] Constitutional: Yes: Lethargic, confused Eyes: Yes: WNL HENT: Yes: WNL Neck: Yes: WNL Cardiovascular: Yes: Pulse Irregular, S1, S2 Respiratory: Yes: Bilateral rhonchi and crackles Gastrointestinal: Yes: Normal Bowel Sounds, Soft Extremities: Yes: WNL Edema: No Labs: Laboratory Results - last 24 hr 04/08/17 04/08/17 04/09/17 17:05 20:51 05:10 WBC RBC Hgb Hct MCV MCH MCHC RDW Plt Count MPV Neutrophils % Neutrophils % (Manual) Band Neutrophils % Lymphocytes % Lymphocytes % (Manual) Monocytes % (Manual) Eosinophils % (Manual) Basophils % (Manual) Myelocytes % (Man) Metamyelocytes Hypochromia Platelet Estimate Polychromasia Poikilocytosis Anisocytosis Microcytosis Macrocytosis Ovalocytes Acanthocytes (Spur) PT with INR INR Sodium 144 Potassium 3.8 Chloride 105 Carbon Dioxide 34 H Anion Gap 5 L BUN 20 H Creatinine 0.8 POC Glucometer 133 151 Random Glucose 95 Calcium 7.7 L Phosphorus 1.5 L Magnesium 1.8 04/09/17 04/09/17 04/09/17 05:10 05:10 06:17 WBC 4.8 D RBC 2.86 L Hgb 8.2 L Hct 25.6 L MCV 89.5 MCH 28.5 MCHC 31.9 L RDW 20.4 H Plt Count 172 MPV 9.6 Neutrophils % No Result Required. Neutrophils % (Manual) 82.8 Band Neutrophils % 3.0 Lymphocytes % No Result Required. Lymphocytes % (Manual) 8.1 Monocytes % (Manual) 6 D Eosinophils % (Manual) 0.0 Basophils % (Manual) 0.0 Myelocytes % (Man) 0 Metamyelocytes 0 Hypochromia 0 Platelet Estimate Normal Polychromasia 2+ Poikilocytosis 3+ Anisocytosis 2+ Microcytosis 0 Macrocytosis 0 Ovalocytes 2+ Acanthocytes (Spur) 1+ PT with INR 17.00 H INR 1.50 H Sodium Potassium Chloride Carbon Dioxide Anion Gap BUN Creatinine POC Glucometer 109 Random Glucose Calcium Phosphorus Magnesium 04/09/17 11:43 WBC RBC Hgb Hct MCV MCH MCHC RDW Plt Count MPV Neutrophils % Neutrophils % (Manual) Band Neutrophils % Lymphocytes % Lymphocytes % (Manual) Monocytes % (Manual) Eosinophils % (Manual) Basophils % (Manual) Myelocytes % (Man) Metamyelocytes Hypochromia Platelet Estimate Polychromasia Poikilocytosis Anisocytosis Microcytosis Macrocytosis Ovalocytes Acanthocytes (Spur) PT with INR INR Sodium Potassium Chloride Carbon Dioxide Anion Gap BUN Creatinine POC Glucometer 170 Random Glucose Calcium Phosphorus Magnesium Problem List - Problems (1) COPD (chronic obstructive pulmonary disease) Code(s): J44.9 - CHRONIC OBSTRUCTIVE PULMONARY DISEASE, UNSPECIFIED (2) Chronic a-fib Code(s): I48.2 - CHRONIC ATRIAL FIBRILLATION (3) Pneumonia Code(s): J18.9 - PNEUMONIA, UNSPECIFIED ORGANISM (4) SOB (shortness of breath) Code(s): R06.02 - SHORTNESS OF BREATH (5) Meningioma Code(s): D32.9 - BENIGN NEOPLASM OF MENINGES, UNSPECIFIED (6) Multiple myeloma Code(s): C90.00 - MULTIPLE MYELOMA NOT HAVING ACHIEVED REMISSION Qualifiers: Multiple myeloma remission status: not in remission Qualified Code(s): C90.00 - Multiple myeloma not having achieved remission (7) Acute respiratory failure with hypoxia and hypercapnia Code(s): J96.01 - ACUTE RESPIRATORY FAILURE WITH HYPOXIA; J96.02 - ACUTE RESPIRATORY FAILURE WITH HYPERCAPNIA (8) Congestive heart failure Code(s): I50.9 - HEART FAILURE, UNSPECIFIED Qualifiers: Congestive heart failure type: diastolic Congestive heart failure chronicity: chronic Qualified Code(s): I50.32 - Chronic diastolic (congestive ) heart failure (9) Diabetes mellitus Code(s): E11.9 - TYPE 2 DIABETES MELLITUS WITHOUT COMPLICATIONS Assessment/Plan IMP ACUTE HYPOXEMIC/HYPERCAPNEIC RESPIRATORY FAILURE IMPROVING PNEUMONIA CHF AFIB COPD DM MM ANEMIA PLAN O2 NIPPV NEEDED IF MENTAL STATUS IMPROVES INHALED BRONCHODILATORS RATE CONTROL PER CARDIOLOGY MONITOR H+H ASPIRATION PRECAUTIONS DR MARQUEZ
--- NOTE | 2017-04-09 16:54 | PN ---
Progress Note (short form) - Note Progress Note: zosyn d/irina 04/07 cxray with worsening congestion/infiltrate? fever 101.1 weak congested c/o back pain no abdominal pain Vital Signs Period Temp Pulse Resp BP Sys/Nieto Pulse Ox Last 24 Hr 97 F-101.1 F 101-126 20-22 112-150/47-102 97-98 cor-rrr lungs bilateral rhonchi abd soft,nt ext contracted CBC, BMP 04/09/17 05:10 04/09/17 05:10 Microbiology 04/05/17 14:30 Blood - Peripheral Venous Blood Culture - Preliminary NO GROWTH OBTAINED AFTER 96 HOURS, INCUBATION TO CONTINUE FOR 1 DAYS. 04/05/17 14:25 Blood - Peripheral Venous Blood Culture - Preliminary NO GROWTH OBTAINED AFTER 96 HOURS, INCUBATION TO CONTINUE FOR 1 DAYS. 04/05/17 14:30 Urine - Urine - Catheterized Urine Culture - Final NO GROWTH OBTAINED 03/30/17 13:50 Blood - Peripheral Venous Blood Culture - Final NO GROWTH AFTER 5 DAYS INCUBATION 03/30/17 13:45 Blood - Peripheral Venous Blood Culture - Final NO GROWTH AFTER 5 DAYS INCUBATION 03/30/17 01:10 Urine - Urine Clean Catch Urine Culture - Final NO GROWTH OBTAINED a/p new fever ?cxray changes pneumonia-could she have aspirated? compression fractures (lumbar and thoracic) multiple myeloma cxray difficult to read due to hernia and body habitus armstrong culture/ influenza screen vancomcyin/cefepime afib- management per cardiology per cardiology
[2017-04-09] MEDS ORDERED: VANCOMYCIN 1 GRAM (PRE-DOCKED) 1,000 MG/250 ML BAG IVPB ONE (16:55)
[2017-04-09] MEDS ORDERED: CEFEPIME HCL 1 GM VIAL (RESTRICTED TO ID) IVPB SCH (17:15)
[2017-04-09] MEDS ORDERED: VANCOMYCIN 1,000 MG in DEXTROSE 5%-WATER - 250 ML IVPB ONE (17:15)
[2017-04-09 17:49] LABS: URINE APPEARANCE SLCLOUDY; URINE BILIRUBIN NEGATIVE (NEGATIVE); URINE BLOOD NEGATIVE (NEGATIVE); URINE COLOR YELLOW; URINE GLUCOSE (UA) NEGATIVE (NEGATIVE); URINE KETONE NEGATIVE (NEGATIVE); URINE LEUK ESTERASE NEGATIVE (NEGATIVE); URINE NITRITE NEGATIVE (NEGATIVE); URINE UROBILINOGEN NEGATIVE mg/dL (0.2-1.0)
[2017-04-09] MEDS: WARFARIN NA 7.5 MG TABLET (FP) PO SCH (17:49)
[2017-04-09 17:53] LABS: URINE PROTEIN 2+ (NEGATIVE)
[2017-04-09 18:24] LABS: EPI CELLS RARE /HPF (FEW); URINE BACTERIA RARE /hpf (NONE SEEN); URINE MUCUS RARE
[2017-04-09] MEDS: CEFEPIME HCL/D5W 1 GM/50 ML BAG IVPB SCH (20:31)
[2017-04-09] MEDS: ATORVASTATIN CA 20 MG TABLET (FP) PO SCH (23:09)
[2017-04-09] MEDS: MONTELUKAST NA 10 MG TABLET PO SCH (23:10)
[2017-04-09] MEDS: OSELTAMIVIR PHOSPHATE 30 MG CAPSULE PO SCH (23:10)
[2017-04-10] MEDS: ACETAMINOPHEN 1000 MG/100 ML VIAL (NON FORMULARY) IVPB PRN ×3 (01:35→22:06)
[2017-04-10] MEDS: INSULIN SLIDING SCALE (NOVOLOG) 1 VIAL SQ SCH ×4 (06:26→22:46)
[2017-04-10] MEDS: dilTIAZem HCL 60 MG TABLET (FP) PO SCH ×3 (06:38→22:07)
[2017-04-10 07:39] LABS: HEMATOCRIT 26.3 % (32.4-45.2); HEMOGLOBIN 8.3 GM/dL (10.7-15.3); MCHC 31.6 g/dl (32.0-36.0); MEAN CELL VOLUME 88.6 fl (80-96); MEAN PLT VOLUME 8.5 fl (7.5-11.1); PLATELET COUNT 160 K/MM3 (134-434); RBC 2.97 M/mm3 (3.60-5.2); WHITE BLOOD COUNT 5.8 K/mm3 (4.0-10.0)
[2017-04-10] MEDS: ALBUTEROL SO4 0.083% IH SOL 2.5 MG/3 ML VIAL.NEB. NEB PRN ×4 (07:45→21:40)
[2017-04-10] MEDS: ACETYLCYSTEINE 20% 200MG/ML 30 ML VIAL *FOR ORAL / INH USE ONLY NEB SCH ×4 (07:45→21:40)
[2017-04-10 07:57] LABS: INR 2.13 (0.82-1.09); PROTHROMBIN TIME (PATIENT) 24.1 SEC (9.98-11.88)
[2017-04-10 08:24] LABS: ANION GAP 7 (8-16); BLOOD UREA NITROGEN 21 mg/dL (7-18); CALCIUM 7.7 mg/dL (8.5-10.1); CHLORIDE 108 mmol/L (98-107); CO2 29 mmol/L (21-32); CREATININE 0.8 mg/dL (0.55-1.02); GLUCOSE,RANDOM 113 mg/dL (74-106); MAGNESIUM 1.6 mg/dL (1.8-2.4); PHOSPHOROUS 2.4 mg/dL (2.5-4.9); POTASSIUM 3.5 mmol/L (3.5-5.1); SODIUM 144 mmol/L (136-145)
[2017-04-10] MEDS ORDERED: PT OWN MED DRAWER 7, Y5N ONE ×2 (10:41→17:59)
[2017-04-10] MEDS: FUROSEMIDE 40 MG TABLET (FP) PO SCH (11:05)
[2017-04-10] MEDS: METOPROLOL SUCCINATE 50 MG TAB.SR.24H (FP) PO SCH (11:05)
[2017-04-10] MEDS: CHOLECALCIFEROL (VITAMIN D3) 1,000 UNIT TABLET (FP) PO SCH (11:05)
[2017-04-10] MEDS: guaiFENesin 600 MG TABLET.ER (FP) PO SCH ×2 (11:05→22:08)
[2017-04-10] MEDS: DOCUSATE SODIUM 100 MG CAPSULE (FP) PO SCH ×2 (11:05→22:08)
[2017-04-10] MEDS: PROPYLTHIOURACIL 50 MG TABLET (UD) PO SCH (11:06)
[2017-04-10] MEDS: CEFEPIME HCL/D5W 1 GM/50 ML BAG IVPB SCH ×2 (11:06→22:08)
[2017-04-10] MEDS: OSELTAMIVIR PHOSPHATE 30 MG CAPSULE PO SCH ×2 (11:06→22:09)
--- NOTE | 2017-04-10 11:34 | PN ---
Progress Note (short form) - Note Progress Note: s: lethargic today, not answering questions well o: Vital Signs Period Temp Pulse Resp BP Sys/Nieto Pulse Ox Last 24 Hr 97.9 F-101.5 F 101-120 20-24 104-122/47-76 95-98 NAD, calm JVD flat, neck supple irregularly irregular, nl rate nl s1, s2 2/6 murmur at sternal border and apex dullness at left base, nl eff + bs soft nt nd ext without edema no cyanosis or clubbing no jaundice, diaphoresis Current Medications Generic Name Dose Route Start Last Admin Trade Name Freq PRN Reason Stop Dose Admin Acetaminophen 650 mg 04/02/17 23:43 04/09/17 10:47 Tylenol - PO 650 mg Q12H PRN Administration PAIN Acetaminophen 850 mg 04/05/17 22:41 04/10/17 01:35 Ofirmev Injection - IVPB 850 mg Q8H PRN Administration Acetylcysteine 600 mg 04/06/17 02:00 04/10/17 07:45 Mucomyst 20 Oral / Inh Use Only* NEB 600 mg RQID [facility] Administration Albuterol Sulfate 1 amp 04/02/17 23:43 04/10/17 07:45 Ventolin 0.083% Nebulizer Soln - NEB 1 amp Q6H PRN Administration SHORT OF BREATH/WHEEZING Atorvastatin Calcium 20 mg 04/03/17 22:00 04/09/17 23:09 Lipitor - PO 20 mg HS [facility] Administration Cholecalciferol 2,000 unit 04/03/17 10:00 04/10/17 11:05 Vitamin D3 - PO 2,000 unit DAILY [facility] Administration Diltiazem HCl 60 mg 04/04/17 15:45 04/10/17 06:38 Cardizem - PO 60 mg TID [facility] Administration Docusate Sodium 100 mg 04/03/17 10:00 04/10/17 11:05 Colace - PO 100 mg BID [facility] Administration Furosemide 40 mg 04/05/17 11:15 04/10/17 11:05 Lasix - PO 40 mg DAILY [facility] Administration Guaifenesin 600 mg 04/06/17 01:30 04/10/17 11:05 Mucinex - PO 600 mg BID [facility] Administration Cefepime HCl 1 gm in 50 mls @ 100 mls/hr 04/09/17 18:00 01/19/18 11:06 Maxipime 1 Gm Premix Ivpb IVPB 100 mls/hr BID [facility] Administration Insulin Aspart 1 vial 04/03/17 07:00 04/10/17 06:26 Novolog Vial Sliding Scale - SQ Not Given ACHS [facility] Protocol Metoprolol Succinate 50 mg 04/06/17 10:00 04/10/17 11:05 Toprol Xl - PO 50 mg DAILY [facility] Administration Montelukast Sodium 10 mg 04/03/17 22:00 04/09/17 23:10 Singulair - PO 10 mg HS [facility] Administration Oseltamivir Phosphate 30 mg 04/09/17 22:00 04/10/17 11:06 Tamiflu - PO 04/14/17 10:01 30 mg BID [facility] Administration Polyethylene Glycol 17 gm 04/03/17 10:00 04/09/17 22:58 Miralax (For Daily Use) - PO Not Given BID [facility] Propylthiouracil 50 mg 04/03/17 10:00 04/10/17 11:06 Ptu - PO 50 mg DAILY [facility] Administration Warfarin Sodium 7.5 mg 04/09/17 10:26 04/09/17 17:49 Coumadin - PO 7.5 mg DAILY@1800 [facility] Administration CBC, BMP 04/10/17 06:55 04/10/17 06:55 - ....Imaging EKG: Other (tele: overall rate controlled afib) EKG: afib, 104 bpm no ischemic changes. Echo 06/2015: afib, nl LV/RV, mild-mod MR/TR, hi LAP, mild ao root dil MIBI 2012: no ST changes, probable breast artifact vs. AW ischemia. Nl EF PFTs 2013: no obstr, mild restr, mild decr DLCO CT chest: severe coronary calcifications. consolidation LEANDRO/LLL. opacities RUL/ RLL ? atx vs scar. no effusions. upper lobe interolbular septal thickening = ? interstitial edema. dilated main PA c/w pulm HTN. repeat cxr 04/07, unchanged. a/p: acute hypoxic resp failure, PNA, sepsis: - lactate elevated initially, with PNA. - spiked to 101.7 on 04/05. - recently euvolemic off of bumex as outpatient (bumex held when here 2017 with progressive myeloma bony pain and poor po, with dehydration and hypercalcemia) - multifactorial chronic sob (copd, diast chf, and ? related to very large hiatal hernia). - here with worsened sob than baseline, CT chest with findings of PNA - nonspecific findings of possible interstitial edema on CT (vs chronic interstitial changes--comparison to prior CT not described on report). in absence of pleural effusions or signs of volume on exam, will not agggressively diurese (hold diuretics) - on abx for PNA - 04/05: overnight signif incr resp distress with very diminished breath sounds. rpt CXR remains prohibitively TDS sec to pt position/rotated, diffuse changes bilat not obviously different vs prior 04/02 (images reviewed). - given lasix 40 ivp, bun/creat ok, BP downtrended but remains >100 syst. standing lasix 40 qd ordered - 04/06-04/09: resp status stable. no JVD appreciated. labs stable. continue lasix 40 po daily. -04/10: question of asp pna. Cont abx per id. Cont po lasix. - suppl O2 Afib - controlled at "lenient rate control" targest on home regimen: DILTIAZEM (60 AM , 60 LUNCH, 30 PM) AND LOW DOSE TOPROL (25). (has h/o bradycardia and hypotension of ? etiology--stable long time on reduced med regimen). - 04/04: currently HRs running 120-140 often, in setting of acute PNA this is likely physiologic. - has had no hypotensive episodes here. will incr diltiazem to 60 TID. - also note she is receiving lopressor 25 qd not toprol--hence early AM tachy is related to clearance of short-acting drug formulation. change back to toprol 25 qd - 04/05: HR now well controlled with above adjustments, cont same meds. - 04/06: HR tachy again overnight in setting of fever (prn dose of extra toprol given, and incr'd daily dose to 50 qd). HR well controlled since. - same meds (toprol 50 qd, dilt 60 tid). suspect will be able to go back down to prior home dose once PNA resolves. - 04/07-: HR improved on higher toprol dose. con't same meds. - cont coumadin (goal INR 2-3), dose prn daily levels - pain control per pmd. mild-mod MR - functional, likely related to volume status - echo 06/2015 stable anemia/multiple myeloma - 2/2 multiple myeloma. heme following. - complicated by vertebral fractures. currently on home hospice per cards office notes. - counts stable around 7-8, monitor on coumadin Emphysema - per pmd +/- pulm dc tele
--- NOTE | 2017-04-10 12:03 | PN ---
Progress Note, Physician Chief Complaint: Unable to obtain, patient altered. Rapid response called prior to evaluation, patient found to be saturating in the 40s on NC. Seeing after being emergently placed on bipap at 100% oxygen and saturations improved to high 90s. - Current Medication List Current Medications: Active Medications Acetaminophen (Tylenol -) 650 mg PO Q12H PRN PRN Reason: PAIN Last Admin: 04/09/17 10:47 Dose: 650 mg Acetaminophen (Ofirmev Injection -) 850 mg IVPB Q8H PRN Last Admin: 04/10/17 01:35 Dose: 850 mg Acetylcysteine (Mucomyst 20 Oral / Inh Use Only*) 600 mg NEB RQID [facility] Last Admin: 04/10/17 07:45 Dose: 600 mg Albuterol Sulfate (Ventolin 0.083% Nebulizer Soln -) 1 amp [facility] Q6H PRN PRN Reason: SHORT OF BREATH/WHEEZING Last Admin: 04/10/17 07:45 Dose: 1 amp Atorvastatin Calcium (Lipitor -) 20 mg PO HS [facility] Last Admin: 04/09/17 23:09 Dose: 20 mg Cholecalciferol (Vitamin D3 -) 2,000 unit PO DAILY [facility] Last Admin: 04/10/17 11:05 Dose: 2,000 unit Diltiazem HCl (Cardizem -) 60 mg PO TID [facility] Last Admin: 04/10/17 06:38 Dose: 60 mg Docusate Sodium (Colace -) 100 mg PO BID [facility] Last Admin: 04/10/17 11:05 Dose: 100 mg Furosemide (Lasix -) 40 mg PO DAILY [facility] Last Admin: 04/10/17 11:05 Dose: 40 mg Guaifenesin (Mucinex -) 600 mg PO BID [facility] Last Admin: 04/10/17 11:05 Dose: 600 mg Cefepime HCl (Maxipime 1 Gm Premix Ivpb) 1 gm in 50 mls @ 100 mls/hr IVPB BID [facility] Last Admin: 04/10/17 11:06 Dose: 100 mls/hr Insulin Aspart (Novolog Vial Sliding Scale -) 1 vial SQ ACHS [facility] PRN Reason: Protocol Last Admin: 04/10/17 06:26 Dose: Not Given Metoprolol Succinate (Toprol Xl -) 50 mg PO DAILY [facility] Last Admin: 04/10/17 11:05 Dose: 50 mg Montelukast Sodium (Singulair -) 10 mg PO HS [facility] Last Admin: 04/09/17 23:10 Dose: 10 mg Oseltamivir Phosphate (Tamiflu -) 30 mg PO BID [facility] Stop: 04/14/17 10:01 Last Admin: 04/10/17 11:06 Dose: 30 mg Polyethylene Glycol (Miralax (For Daily Use) -) 17 gm PO BID [facility] Last Admin: 04/09/17 22:58 Dose: Not Given Propylthiouracil (Ptu -) 50 mg PO DAILY [facility] Last Admin: 04/10/17 11:06 Dose: 50 mg Warfarin Sodium (Coumadin -) 7.5 mg PO DAILY@1800 [facility] Last Admin: 04/09/17 17:49 Dose: 7.5 mg - Objective Vital Signs: Vital Signs Temperature 36.6 C 04/10/17 06:00 Pulse Rate 120 H 04/10/17 06:00 Respiratory Rate 22 04/10/17 06:00 Blood Pressure 119/63 04/10/17 06:00 O2 Sat by Pulse Oximetry (%) 94 L 04/10/17 10:15 Constitutional: Yes: Other (lethargic, confused) Cardiovascular: Yes: Tachycardia, Pulse Irregular. No: Gallop, Murmur, Rub Respiratory: Yes: On BiPap, Rhonchi, Tachypnea. No: Regular, CTA Bilaterally, Rales, Wheezes Gastrointestinal: Yes: Normal Bowel Sounds, Soft. No: Distention, Tenderness Extremities: Yes: WNL Edema: No Labs: CBC, BMP 04/10/17 06:55 04/10/17 06:55 INR, PTT INR 2.13 (0.82-1.09) H D 04/10/17 06:55 Problem List - Problems (1) Acute respiratory failure with hypoxia Code(s): J96.01 - ACUTE RESPIRATORY FAILURE WITH HYPOXIA (2) Influenza A Code(s): J10.1 - FLU DUE TO OTH IDENT INFLUENZA VIRUS W OTH RESP MANIFEST (3) Pneumonia Code(s): J18.9 - PNEUMONIA, UNSPECIFIED ORGANISM (4) Vertebral fracture Code(s): [id number] - Qualifiers: Encounter type: initial encounter Fracture of vertebra location: lumbar Lumbar vertebra fracture level: unspecified lumbar vertebra Fracture type: closed Fracture morphology: other fracture Qualified Code(s): S32.008A - Other fracture of unspecified lumbar vertebra, initial encounter for closed fracture (5) Atrial fibrillation Code(s): I48.91 - UNSPECIFIED ATRIAL FIBRILLATION Qualifiers: Atrial fibrillation type: chronic Qualified Code(s): I48.2 - Chronic atrial fibrillation (6) Atypical chest pain Code(s): R07.89 - OTHER CHEST PAIN (7) COPD (chronic obstructive pulmonary disease) Code(s): J44.9 - CHRONIC OBSTRUCTIVE PULMONARY DISEASE, UNSPECIFIED (8) Congestive heart failure Code(s): I50.9 - HEART FAILURE, UNSPECIFIED Qualifiers: Congestive heart failure type: diastolic Congestive heart failure chronicity: chronic Qualified Code(s): I50.32 - Chronic diastolic (congestive ) heart failure (9) Diabetes mellitus Code(s): E11.9 - TYPE 2 DIABETES MELLITUS WITHOUT COMPLICATIONS (10) Hyperlipidemia Code(s): E78.5 - HYPERLIPIDEMIA, UNSPECIFIED (11) Multiple myeloma Code(s): C90.00 - MULTIPLE MYELOMA NOT HAVING ACHIEVED REMISSION Qualifiers: Multiple myeloma remission status: not in remission Qualified Code(s): C90.00 - Multiple myeloma not having achieved remission (12) Metabolic encephalopathy Code(s): G93.41 - METABOLIC ENCEPHALOPATHY (13) Diverticulitis Code(s): K57.92 - DVTRCLI OF INTEST, PART UNSP, W/O PERF OR ABSCESS W/O BLEED Assessment/Plan (1) Acute hypoxic respiratory failure -secondary to influenza pneumonia -chest x-ray checked and progressing -ABG checked, hypoxia without hypercapnea (patient was on bipap minimal time to affect CO2) -continue oxygen support, change to venti-mask as does not need bipap -treat influenza -very guarded prognosis (2) Influenza pneumonia with recurring sepsis -case d/w ID and appreciate assistance -now on tamiflu -supportive care -guarded prognosis considering co-morbidities -cefepime started as well for possible co-infection (3) Sepsis, recurrent Assessment/Plan: as above -ID following and on tamiflu Code(s): J18.9 - PNEUMONIA, UNSPECIFIED ORGANISM (4) Vertebral fracture Assessment/Plan: -continue IV tylenol Code(s): [id number] - Qualifiers: Encounter type: initial encounter Fracture of vertebra location: lumbar Lumbar vertebra fracture level: unspecified lumbar vertebra Fracture type: closed Fracture morphology: other fracture Qualified Code(s): S32.008A - Other fracture of unspecified lumbar vertebra, initial encounter for closed fracture (5) Atrial fibrillation Assessment/Plan: -tachycardic today secondary to hypoxic respiratory failure and sepsis -treat underlying infection -cardiology following -continue current management -continue coumadin at current dose -of note patient is on coumadin 3mg at home but 5mg currently so made need to decrease dose in am Code(s): I48.91 - UNSPECIFIED ATRIAL FIBRILLATION Qualifiers: Atrial fibrillation type: chronic Qualified Code(s): I48.2 - Chronic atrial fibrillation (6) COPD (chronic obstructive pulmonary disease) Assessment/Plan: -with exacerbation from influenza -consider steroids if breathing status continues to worsen -will await pulmonary evaluation and recommendation Code(s): J44.9 - CHRONIC OBSTRUCTIVE PULMONARY DISEASE, UNSPECIFIED (7) Congestive heart failure Assessment/Plan: -cardiology following and appreciate assistance -chest x-ray read as fluid overload but per my read more suspicious for influenza pneumonia -will hold on IV lasix Code(s): I50.9 - HEART FAILURE, UNSPECIFIED Qualifiers: Congestive heart failure type: diastolic Congestive heart failure chronicity: chronic Qualified Code(s): I50.32 - Chronic diastolic (congestive ) heart failure (8) Diabetes mellitus Assessment/Plan: -monitor now on diet -diabetic diet Code(s): E11.9 - TYPE 2 DIABETES MELLITUS WITHOUT COMPLICATIONS (9) Hyperlipidemia Assessment/Plan: -hold lipitor currently Code(s): E78.5 - HYPERLIPIDEMIA, UNSPECIFIED (10) Multiple myeloma Assessment/Plan: -oncology consulted and following Code(s): C90.00 - MULTIPLE MYELOMA NOT HAVING ACHIEVED REMISSION Qualifiers: Multiple myeloma remission status: not in remission Qualified Code(s): C90.00 - Multiple myeloma not having achieved remission (11) Metabolic encephalopathy -recurrence -secondary to sepsis -as above (1) Diverticulitis Assessment/Plan -resolved Code(s): K57.92 - DVTRCLI OF INTEST, PART UNSP, W/O PERF OR ABSCESS W/O BLEED
[2017-04-10 12:20] LABS: ARTERIAL BLD GAS O2 SATURATION 98.7 % (90-98.9); ARTERIAL BLOOD GAS BASE EXCESS 3.9 meq/l (-2-2); ARTERIAL BLOOD GAS PCO2 42.4 mmHg (35-45); ARTERIAL BLOOD GAS pH 7.44 (7.35-7.45)
[2017-04-10 12:21] LABS: ALLENS TEST POSITIVE
[2017-04-10 12:27] LABS: ANISOCYTOSIS 1+
[2017-04-10 12:28] LABS: OVALOCYTE 1+
[2017-04-10] MEDS: POLYETHYLENE GLYCOL 3350 119 GM BTL PO SCH ×2 (13:09→22:08)
--- NOTE | 2017-04-10 14:56 | PN ---
Progress Note, Physician History of Present Illness: PULMONARY LETHARGIC ON BIPAP - Current Medication List Current Medications: Active Medications Acetaminophen (Tylenol -) 650 mg PO Q12H PRN PRN Reason: PAIN Last Admin: 04/09/17 10:47 Dose: 650 mg Acetaminophen (Ofirmev Injection -) 850 mg IVPB Q8H PRN Last Admin: 04/10/17 11:45 Dose: 850 mg Acetylcysteine (Mucomyst 20 Oral / Inh Use Only*) 600 mg NEB RQID [facility] Last Admin: 04/10/17 11:15 Dose: 600 mg Albuterol Sulfate (Ventolin 0.083% Nebulizer Soln -) 1 amp NEB Q6H PRN PRN Reason: SHORT OF BREATH/WHEEZING Last Admin: 04/10/17 11:15 Dose: 1 amp Atorvastatin Calcium (Lipitor -) 20 mg PO [facility] Last Admin: 04/09/17 23:09 Dose: 20 mg Cholecalciferol (Vitamin D3 -) 2,000 unit PO DAILY [facility] Last Admin: 04/10/17 11:05 Dose: 2,000 unit Diltiazem HCl (Cardizem -) 60 mg PO TID [facility] Last Admin: 04/10/17 13:45 Dose: 60 mg Docusate Sodium (Colace -) 100 mg PO BID [facility] Last Admin: 04/10/17 11:05 Dose: 100 mg Furosemide (Lasix -) 40 mg PO DAILY [facility] Last Admin: 04/10/17 11:05 Dose: 40 mg Guaifenesin (Mucinex -) 600 mg PO BID [facility] Last Admin: 04/10/17 11:05 Dose: 600 mg Cefepime HCl (Maxipime 1 Gm Premix Ivpb) 1 gm in 50 mls @ 100 mls/hr IVPB BID [facility] Last Admin: 04/10/17 11:06 Dose: 100 mls/hr Insulin Aspart (Novolog Vial Sliding Scale -) 1 vial SQ ACHS [facility] PRN Reason: Protocol Last Admin: 04/10/17 13:08 Dose: 4 units Metoprolol Succinate (Toprol Xl -) 50 mg PO DAILY [facility] Last Admin: 04/10/17 11:05 Dose: 50 mg Montelukast Sodium (Singulair -) 10 mg PO [facility] Last Admin: 04/09/17 23:10 Dose: 10 mg Oseltamivir Phosphate (Tamiflu -) 30 mg PO BID [facility] Stop: 04/14/17 10:01 Last Admin: 04/10/17 11:06 Dose: 30 mg Polyethylene Glycol (Miralax (For Daily Use) -) 17 gm PO BID [facility] Last Admin: 04/10/17 13:09 Dose: Not Given Propylthiouracil (Ptu -) 50 mg PO DAILY [facility] Last Admin: 04/10/17 11:06 Dose: 50 mg Warfarin Sodium (Coumadin -) 7.5 mg PO DAILY@1800 [facility] Last Admin: 04/09/17 17:49 Dose: 7.5 mg - Objective Vital Signs: Vital Signs Temperature 103 F H 04/10/17 13:00 Pulse Rate 139 H 04/10/17 13:00 Respiratory Rate 24 04/10/17 13:00 Blood Pressure 120/56 04/10/17 13:00 O2 Sat by Pulse Oximetry (%) 94 L 04/10/17 10:15 Constitutional: Yes: Thin Eyes: Yes: WNL HENT: Yes: WNL Neck: Yes: WNL Cardiovascular: Yes: Pulse Irregular, S1, S2 Respiratory: Yes: Rhonchi Gastrointestinal: Yes: Normal Bowel Sounds, Soft Extremities: Yes: WNL Edema: Yes Wound/Incision: Yes: Sutures Intact Labs: CBC, BMP 04/10/17 06:55 04/10/17 06:55 INR, PTT INR 2.13 (0.82-1.09) H D 04/10/17 06:55 Laboratory Tests 04/10/17 12:05 ABG pH 7.44 ABG pCO2 at Pt Temp 42.4 ABG pO2 at Pt Temp 128.0 H D ABG HCO3 28.0 H ABG O2 Sat (Measured) 98.7 O2 Delivery Device Bipap / Oxygen Flow Rate 100% Vent Mode S/t Vent Rate 16 Problem List - Problems (1) COPD (chronic obstructive pulmonary disease) Code(s): J44.9 - CHRONIC OBSTRUCTIVE PULMONARY DISEASE, UNSPECIFIED (2) Chronic a-fib Code(s): I48.2 - CHRONIC ATRIAL FIBRILLATION (3) Pneumonia Code(s): J18.9 - PNEUMONIA, UNSPECIFIED ORGANISM (4) SOB (shortness of breath) Code(s): R06.02 - SHORTNESS OF BREATH (5) Meningioma Code(s): D32.9 - BENIGN NEOPLASM OF MENINGES, UNSPECIFIED (6) Multiple myeloma Code(s): C90.00 - MULTIPLE MYELOMA NOT HAVING ACHIEVED REMISSION Qualifiers: Qualified Code(s): C90.00 - Multiple myeloma not having achieved remission (7) Acute respiratory failure with hypoxia and hypercapnia Code(s): J96.01 - ACUTE RESPIRATORY FAILURE WITH HYPOXIA; J96.02 - ACUTE RESPIRATORY FAILURE WITH HYPERCAPNIA (8) Congestive heart failure Code(s): I50.9 - HEART FAILURE, UNSPECIFIED Qualifiers: Qualified Code(s): I50.32 - Chronic diastolic (congestive) heart failure (9) Diabetes mellitus Code(s): E11.9 - TYPE 2 DIABETES MELLITUS WITHOUT COMPLICATIONS Assessment/Plan IMP ACUTE HYPOXEMIC/HYPERCAPNEIC RESPIRATORY FAILURE PNEUMONIA WORSENING CHF AFIB COPD DM MM ANEMIA PLAN O2 NIPPV NEEDED INHALED BRONCHODILATORS RATE CONTROL PER CARDIOLOGY F/U CHEST X-RAYS F/U ABGS MONITOR H+H REPLETE HUANG THOMPSON Problem List - Problems (1) COPD (chronic obstructive pulmonary disease) Code(s): J44.9 - CHRONIC OBSTRUCTIVE PULMONARY DISEASE, UNSPECIFIED (2) Chronic a-fib Code(s): I48.2 - CHRONIC ATRIAL FIBRILLATION (3) Pneumonia Code(s): J18.9 - PNEUMONIA, UNSPECIFIED ORGANISM (4) SOB (shortness of breath) Code(s): R06.02 - SHORTNESS OF BREATH (5) Meningioma Code(s): D32.9 - BENIGN NEOPLASM OF MENINGES, UNSPECIFIED (6) Multiple myeloma Code(s): C90.00 - MULTIPLE MYELOMA NOT HAVING ACHIEVED REMISSION Qualifiers: Multiple myeloma remission status: not in remission Qualified Code(s): C90.00 - Multiple myeloma not having achieved remission (7) Acute respiratory failure with hypoxia and hypercapnia Code(s): J96.01 - ACUTE RESPIRATORY FAILURE WITH HYPOXIA; J96.02 - ACUTE RESPIRATORY FAILURE WITH HYPERCAPNIA (8) Congestive heart failure Code(s): I50.9 - HEART FAILURE, UNSPECIFIED Qualifiers: Congestive heart failure type: diastolic Congestive heart failure chronicity: chronic Qualified Code(s): I50.32 - Chronic diastolic (congestive ) heart failure (9) Diabetes mellitus Code(s): E11.9 - TYPE 2 DIABETES MELLITUS WITHOUT COMPLICATIONS
[2017-04-10] MEDS: methylPREDNISolone NA SUCC 40 MG/1 ML VIAL IVPUSH SCH ×2 (15:52→21:21)
--- NOTE | 2017-04-10 16:15 | PN ---
Progress Note (short form) - Note Progress Note: remains febrile now hypoxic requiring bipap family in discussion about advanced directives on bipap Vital Signs Period Temp Pulse Resp BP Sys/Nieto Pulse Ox Last 24 Hr 97.9 F-103 F 109-139 22-24 104-121/56-76 94-98 cor-rrr lungs decreased bs at bases abd soft,nt ext no edema CBC, BMP 04/10/17 06:55 04/10/17 06:55 influenza a antigen positive Microbiology 04/05/17 14:30 Blood - Peripheral Venous Blood Culture - Final NO GROWTH AFTER 5 DAYS INCUBATION 04/05/17 14:25 Blood - Peripheral Venous Blood Culture - Final NO GROWTH AFTER 5 DAYS INCUBATION 04/09/17 17:04 Urine - Urine - Catheterized Legionella Antigen - Final 04/09/17 17:04 Urine - Urine - Catheterized Streptococcus pneumoniae Antigen (M - Final 04/09/17 17:00 Nasopharyngeal Swab Influenza Types A,B Antigen (MICHAEL) - Final 04/09/17 17:00 Nasopharyngeal Swab - Final legionella antigen negative a/p fevers /hyopoxia- influenza A- continue tamiflu , continue cefepime/vancomcyin compression fractures (lumbar and thoracic) multiple myeloma advanced directives being discussed d/w son at bedside afib- management per cardiology per cardiology overall prognosis is poor
[2017-04-10] MEDS ORDERED: GLUCAGON 1 MG KIT IM ONE (16:18)
[2017-04-10] MEDS ORDERED: DEXTROSE 50%-WATER - 25 GM/50 ML VIAL IVPUSH PRN (16:25)
[2017-04-10] MEDS: VANCOMYCIN 750 MG in DEXTROSE 5%-WATER - 250 ML IVPB SCH (18:33)
[2017-04-10] MEDS: WARFARIN NA 7.5 MG TABLET (FP) PO SCH (18:33)
[2017-04-10] MEDS ORDERED: ACETYLCYSTEINE 20% 200MG/ML 4 ML VIAL *FOR ORAL / INH USE ONLY ONE (21:09)
[2017-04-10] MEDS: MONTELUKAST NA 10 MG TABLET PO SCH (22:08)
[2017-04-10] MEDS: ATORVASTATIN CA 20 MG TABLET (FP) PO SCH (22:08)
[2017-04-11] MEDS: methylPREDNISolone NA SUCC 40 MG/1 ML VIAL IVPUSH SCH ×3 (03:39→16:38)
[2017-04-11] MEDS: dilTIAZem HCL 60 MG TABLET (FP) PO SCH ×2 (06:17→14:45)
[2017-04-11] MEDS: INSULIN SLIDING SCALE (NOVOLOG) 1 VIAL SQ SCH ×3 (06:17→16:38)
[2017-04-11] MEDS: ALBUTEROL SO4 0.083% IH SOL 2.5 MG/3 ML VIAL.NEB. NEB PRN ×2 (07:30→16:00)
[2017-04-11] MEDS: ACETYLCYSTEINE 20% 200MG/ML 30 ML VIAL *FOR ORAL / INH USE ONLY NEB SCH ×4 (07:30→20:00)
[2017-04-11 07:49] LABS: BASO % 0.2 % (0-2.0); EOS % 0.1 % (0-4.5); HEMOGLOBIN 8.4 GM/dL (10.7-15.3); LYMPH % 8.3 % (8-40); MCH 27.4 pg (25.7-33.7); MEAN CELL VOLUME 88.4 fl (80-96); MEAN PLT VOLUME 9.7 fl (7.5-11.1); MONO % 3.3 % (3.8-10.2); NEUT % 88.1 % (42.8-82.8); PLATELET COUNT 210 K/MM3 (134-434); RBC 3.05 M/mm3 (3.60-5.2); RDW 20.7 % (11.6-15.6); WHITE BLOOD COUNT 6.7 K/mm3 (4.0-10.0)
[2017-04-11 08:06] LABS: PROTHROMBIN TIME (PATIENT) 50.2 SEC (9.98-11.88)
[2017-04-11 08:30] LABS: INR 4.44 (0.82-1.09)
[2017-04-11] MEDS ORDERED: PT OWN MED DRAWER 7, Y5N ONE ×2 (08:57→23:55)
[2017-04-11] MEDS: CEFEPIME HCL/D5W 1 GM/50 ML BAG IVPB SCH (09:08)
[2017-04-11] MEDS: METOPROLOL SUCCINATE 50 MG TAB.SR.24H (FP) PO SCH (09:09)
[2017-04-11] MEDS: PROPYLTHIOURACIL 50 MG TABLET (UD) PO SCH (09:09)
[2017-04-11] MEDS: CHOLECALCIFEROL (VITAMIN D3) 1,000 UNIT TABLET (FP) PO SCH (09:09)
[2017-04-11] MEDS: DOCUSATE SODIUM 100 MG CAPSULE (FP) PO SCH (09:09)
[2017-04-11] MEDS: guaiFENesin 600 MG TABLET.ER (FP) PO SCH (09:09)
[2017-04-11] MEDS: FUROSEMIDE 40 MG TABLET (FP) PO SCH (09:09)
[2017-04-11] MEDS: OSELTAMIVIR PHOSPHATE 30 MG CAPSULE PO SCH (09:10)
[2017-04-11 09:29] LABS: ANION GAP 6 (8-16); BLOOD UREA NITROGEN 28 mg/dL (7-18); CALCIUM 7.7 mg/dL (8.5-10.1); CHLORIDE 108 mmol/L (98-107); CO2 32 mmol/L (21-32); CREATININE 0.8 mg/dL (0.55-1.02); GLUCOSE,RANDOM 110 mg/dL (74-106); MAGNESIUM 1.8 mg/dL (1.8-2.4); PHOSPHOROUS 2.7 mg/dL (2.5-4.9); POTASSIUM 3.6 mmol/L (3.5-5.1); SODIUM 146 mmol/L (136-145)
[2017-04-11] MEDS: VANCOMYCIN 750 MG in DEXTROSE 5%-WATER - 250 ML IVPB SCH (10:50)
--- NOTE | 2017-04-11 11:41 | PN ---
Progress Note, Physician History of Present Illness: No events overnight No complaints - Current Medication List Current Medications: Active Medications Acetaminophen (Tylenol -) 650 mg PO Q12H PRN PRN Reason: PAIN Last Admin: 04/09/17 10:47 Dose: 650 mg Acetaminophen (Ofirmev Injection -) 850 mg IVPB Q8H PRN Last Admin: 04/10/17 22:06 Dose: 850 mg Acetylcysteine (Mucomyst 20 Oral / Inh Use Only*) 600 mg NEB RQID [facility] Last Admin: 04/11/17 07:30 Dose: 600 mg Albuterol Sulfate (Ventolin 0.083% Nebulizer Soln -) 1 amp NEB Q6H PRN PRN Reason: SHORT OF BREATH/WHEEZING Last Admin: 04/11/17 07:30 Dose: 1 amp Atorvastatin Calcium (Lipitor -) 20 mg PO HS [facility] Last Admin: 04/10/17 22:08 Dose: 20 mg Cholecalciferol (Vitamin D3 -) 2,000 unit PO DAILY [facility] Last Admin: 04/11/17 09:09 Dose: 2,000 unit Dextrose (D50w (Vial) -) 25 gm IVPUSH PRN PRN PRN Reason: hypoglycemia <75 Diltiazem HCl (Cardizem -) 60 mg PO TID [facility] Last Admin: 04/11/17 06:17 Dose: 60 mg Docusate Sodium (Colace -) 100 mg PO BID [facility] Last Admin: 04/11/17 09:09 Dose: 100 mg Furosemide (Lasix -) 40 mg PO DAILY [facility] Last Admin: 04/11/17 09:09 Dose: 40 mg Guaifenesin (Mucinex -) 600 mg PO BID [facility] Last Admin: 04/11/17 09:09 Dose: 600 mg Cefepime HCl (Maxipime 1 Gm Premix Ivpb) 1 gm in 50 mls @ 100 mls/hr IVPB BID [facility] Last Admin: 04/11/17 09:08 Dose: 100 mls/hr Vancomycin HCl 750 mg/ (Dextrose) 250 mls @ 250 mls/hr IVPB DAILY [facility] PRN Reason: Protocol Last Admin: 04/11/17 10:50 Dose: 250 mls/hr Insulin Aspart (Novolog Vial Sliding Scale -) 1 vial SQ ACHS [facility] PRN Reason: Protocol Last Admin: 04/11/17 06:17 Dose: Not Given Methylprednisolone Sodium Succinate (Solu-Medrol -) 40 mg IVPUSH Q6H-IV [facility] Stop: 04/11/17 15:00 Last Admin: 04/11/17 09:08 Dose: 40 mg Metoprolol Succinate (Toprol Xl -) 50 mg PO DAILY [facility] Last Admin: 04/11/17 09:09 Dose: 50 mg Montelukast Sodium (Singulair -) 10 mg PO HS [facility] Last Admin: 04/10/17 22:08 Dose: 10 mg Oseltamivir Phosphate (Tamiflu -) 30 mg PO BID [facility] Stop: 04/14/17 10:01 Last Admin: 04/11/17 09:10 Dose: 30 mg Polyethylene Glycol (Miralax (For Daily Use) -) 17 gm PO BID [facility] Last Admin: 04/10/17 22:08 Dose: Not Given Propylthiouracil (Ptu -) 50 mg PO DAILY [facility] Last Admin: 04/11/17 09:09 Dose: 50 mg Warfarin Sodium (Coumadin -) 7.5 mg PO DAILY@1800 [facility] Last Admin: 04/10/17 18:33 Dose: 7.5 mg - Objective Vital Signs: Vital Signs Temperature 99.0 F 04/11/17 06:00 Pulse Rate 98 H 04/11/17 06:00 Respiratory Rate 22 04/11/17 06:00 Blood Pressure 108/66 04/11/17 06:00 O2 Sat by Pulse Oximetry (%) 96 04/11/17 08:27 Constitutional: Yes: Anxious, Other (On BiPAP) Eyes: Yes: WNL HENT: Yes: WNL Neck: Yes: WNL Cardiovascular: Yes: Pulse Irregular Respiratory: Yes: CTA Bilaterally Musculoskeletal: Yes: Other (contracted) Edema: No Edema: LLE: Trace, RLE: Trace Labs: CBC, BMP 04/11/17 07:04 04/11/17 07:04 INR, PTT INR 4.44 (0.82-1.09) H* D 04/11/17 07:04 Assessment/Plan a/p: acute hypoxic resp failure, PNA, sepsis: - lactate elevated initially, with PNA. - spiked to 101.7 on 04/05. - recently euvolemic off of bumex as outpatient (bumex held when here 2017 with progressive myeloma bony pain and poor po, with dehydration and hypercalcemia) - multifactorial chronic sob (copd, diast chf, and ? related to very large hiatal hernia). - here with worsened sob than baseline, CT chest with findings of PNA - nonspecific findings of possible interstitial edema on CT (vs chronic interstitial changes--comparison to prior CT not described on report). in absence of pleural effusions or signs of volume on exam, will not agggressively diurese (hold diuretics) - on abx for PNA - 04/05: overnight signif incr resp distress with very diminished breath sounds. rpt CXR remains prohibitively TDS sec to pt position/rotated, diffuse changes bilat not obviously different vs prior 04/02 (images reviewed). - given lasix 40 ivp, bun/creat ok, BP downtrended but remains >100 syst. standing lasix 40 qd ordered - 04/06-04/09: resp status stable. no JVD appreciated. labs stable. continue lasix 40 po daily. -04/10: question of asp pna. Cont abx per id. Cont po lasix. - suppl O2 Afib - controlled at "lenient rate control" targest on home regimen: DILTIAZEM (60 AM , 60 LUNCH, 30 PM) AND LOW DOSE TOPROL (25). (has h/o bradycardia and hypotension of ? etiology--stable long time on reduced med regimen). - 04/04: currently HRs running 120-140 often, in setting of acute PNA this is likely physiologic. - has had no hypotensive episodes here. will incr diltiazem to 60 TID. - also note she is receiving lopressor 25 qd not toprol--hence early AM tachy is related to clearance of short-acting drug formulation. change back to toprol 25 qd - 04/05: HR now well controlled with above adjustments, cont same meds. - 04/06: HR tachy again overnight in setting of fever (prn dose of extra toprol given, and incr'd daily dose to 50 qd). HR well controlled since. - same meds (toprol 50 qd, dilt 60 tid). suspect will be able to go back down to prior home dose once PNA resolves. - 04/07-: HR improved on higher toprol dose. con't same meds. - cont coumadin (goal INR 2-3), dose prn daily levels - pain control per pmd. -04/11/2017 Elevated INR today, Hold coumadin today mild-mod MR - functional, likely related to volume status - echo 06/2015 stable anemia/multiple myeloma - 2/2 multiple myeloma. heme following. - complicated by vertebral fractures. currently on home hospice per cards office notes. - counts stable around 7-8, monitor on coumadin Emphysema - per pmd +/- pulm
--- NOTE | 2017-04-11 13:17 | PN ---
Progress Note, Physician Chief Complaint: Remained at base line , on CPAP, < O2 sat 94 low grade fever History of Present Illness: 86 year old female with past medical history of multiple myeloma, Afib, CHF, and diabetes who presents to the ED with complaints of cough, SOB, chest pain, and abdominal pain, with divericullitis complicated course with Afib with RVR, HCAP and Influenza infection withrespiratory failure. - Current Medication List Current Medications: Active Medications Acetaminophen (Tylenol -) 650 mg PO Q12H PRN PRN Reason: PAIN Last Admin: 04/09/17 10:47 Dose: 650 mg Acetaminophen (Ofirmev Injection -) 850 mg IVPB Q8H PRN Last Admin: 04/10/17 22:06 Dose: 850 mg Acetylcysteine (Mucomyst 20 Oral / Inh Use Only*) 600 mg NEB RQID [facility] Last Admin: 04/11/17 11:15 Dose: 600 mg Albuterol Sulfate (Ventolin 0.083% Nebulizer Soln -) 1 amp NEB Q6H PRN PRN Reason: SHORT OF BREATH/WHEEZING Last Admin: 04/11/17 07:30 Dose: 1 amp Atorvastatin Calcium (Lipitor -) 20 mg PO HS [facility] Last Admin: 04/10/17 22:08 Dose: 20 mg Cholecalciferol (Vitamin D3 -) 2,000 unit PO DAILY [facility] Last Admin: 04/11/17 09:09 Dose: 2,000 unit Dextrose (D50w (Vial) -) 25 gm IVPUSH PRN PRN PRN Reason: hypoglycemia <75 Diltiazem HCl (Cardizem -) 60 mg PO TID [facility] Last Admin: 04/11/17 06:17 Dose: 60 mg Docusate Sodium (Colace -) 100 mg PO BID [facility] Last Admin: 04/11/17 09:09 Dose: 100 mg Furosemide (Lasix -) 40 mg PO DAILY [facility] Last Admin: 04/11/17 09:09 Dose: 40 mg Guaifenesin (Mucinex -) 600 mg PO BID [facility] Last Admin: 04/11/17 09:09 Dose: 600 mg Cefepime HCl (Maxipime 1 Gm Premix Ivpb) 1 gm in 50 mls @ 100 mls/hr IVPB BID [facility] Last Admin: 04/11/17 09:08 Dose: 100 mls/hr Vancomycin HCl 750 mg/ (Dextrose) 250 mls @ 250 mls/hr IVPB DAILY [facility] PRN Reason: Protocol Last Admin: 04/11/17 10:50 Dose: 250 mls/hr Insulin Aspart (Novolog Vial Sliding Scale -) 1 vial SQ ACHS [facility] PRN Reason: Protocol Last Admin: 04/11/17 12:28 Dose: 8 units Methylprednisolone Sodium Succinate (Solu-Medrol -) 40 mg IVPUSH Q6H-IV [facility] Stop: 04/11/17 15:00 Last Admin: 04/11/17 09:08 Dose: 40 mg Metoprolol Succinate (Toprol Xl -) 50 mg PO DAILY [facility] Last Admin: 04/11/17 09:09 Dose: 50 mg Montelukast Sodium (Singulair -) 10 mg PO HS [facility] Last Admin: 04/10/17 22:08 Dose: 10 mg Oseltamivir Phosphate (Tamiflu -) 30 mg PO BID [facility] Stop: 04/14/17 10:01 Last Admin: 04/11/17 09:10 Dose: 30 mg Polyethylene Glycol (Miralax (For Daily Use) -) 17 gm PO BID [facility] Last Admin: 04/10/17 22:08 Dose: Not Given Propylthiouracil (Ptu -) 50 mg PO DAILY [facility] Last Admin: 04/11/17 09:09 Dose: 50 mg - Objective Vital Signs: Vital Signs Temperature 99.8 F H 04/11/17 10:00 Pulse Rate 100 H 04/11/17 10:00 Respiratory Rate 22 04/11/17 10:00 Blood Pressure 110/70 04/11/17 10:00 O2 Sat by Pulse Oximetry (%) 97 04/11/17 11:50 Elderly F sick looking , drowsy bur responding to command mild respiratory distress. HEENT: Mm moist, pale, anemia +, no thrush NECK: No NVD No Bruit CHEST: b/l diffuse basal Crepts CVS: S1S2 IR tachycardia ABD: No distention Mild tender, Bs + EXT: Trace Edema , no calf tenderness, pulses + [employer]: lethargic, responding to verbal command. moving all extremities.. Labs: CBC, BMP 04/11/17 07:04 04/11/17 07:04 INR, PTT INR 4.44 (0.82-1.09) H* D 04/11/17 07:04 Problem List - Problems (1) Pneumonia Assessment/Plan: On IV abx for HCAP and Tamiflu trended normal, but patient is febrile discussed with ID consult recommenced current abx F/U U and blood culture. Code(s): J18.9 - PNEUMONIA, UNSPECIFIED ORGANISM (2) Anemia Assessment/Plan: Chronic H/H 7.8 almost at base line Code(s): D64.9 - ANEMIA, UNSPECIFIED Qualifiers: Anemia type: unspecified type Qualified Code(s): D64.9 - Anemia, unspecified (3) Chronic a-fib Assessment/Plan: Rate controlled cont current management off AC F/U PT INR. r. Code(s): I48.2 - CHRONIC ATRIAL FIBRILLATION (4) T2DM (type 2 diabetes mellitus) Assessment/Plan: Optimize Glycemic control. Code(s): E11.9 - TYPE 2 DIABETES MELLITUS WITHOUT COMPLICATIONS Qualifiers: Diabetes mellitus complication status: with neurologic complications (5) Vertebral fracture Assessment/Plan: Lumbar vertebral compression fracture of undermined age , no compressive signs. hold Narcotic cont IV tylenol Code(s): PCA4971 - Qualifiers: Encounter type: initial encounter Fracture of vertebra location: lumbar Lumbar vertebra fracture level: unspecified lumbar vertebra Fracture type: closed Fracture morphology: other fracture Qualified Code(s): S32.008A - Other fracture of unspecified lumbar vertebra, initial encounter for closed fracture (6) COPD (chronic obstructive pulmonary disease) Assessment/Plan: Yesterday developed Hypercarbia and AMS responded to BIPAP will F/U ABG and Pulmonary consult Code(s): J44.9 - CHRONIC OBSTRUCTIVE PULMONARY DISEASE, UNSPECIFIED (7) SOB (shortness of breath) Assessment/Plan: Due to Pulmonary congestion and Pneumonia F/U clinically Code(s): R06.02 - SHORTNESS OF BREATH (8) Influenza A Assessment/Plan: On Tamiflu Code(s): J10.1 - FLU DUE TO OTH IDENT INFLUENZA VIRUS W OTH RESP MANIFEST
--- NOTE | 2017-04-11 14:16 | PN ---
Progress Note (short form) - Note Progress Note: Drowsy and confused on NIPPV, 8O% FiO2. No clinical improvement noted. Ongoing family discussions for GOC. Intake & Output 04/08/17 04/09/17 04/10/17 04/11/17 23:59 23:59 23:59 23:59 Intake Total 500 421 750 160 Output Total 800 Balance -300 421 750 160 Last Vital Signs Temp Pulse Resp BP Pulse Ox 99.8 F H 100 H 22 110/70 97 04/11/17 10:00 04/11/17 10:00 04/11/17 10:00 04/11/17 10:00 04/11/17 11:50 Active Medications Acetaminophen (Tylenol -) 650 mg PO Q12H PRN PRN Reason: PAIN Last Admin: 04/09/17 10:47 Dose: 650 mg Acetaminophen (Ofirmev Injection -) 850 mg IVPB Q8H PRN Last Admin: 04/10/17 22:06 Dose: 850 mg Acetylcysteine (Mucomyst 20 Oral / Inh Use Only*) 600 mg NEB RQID [facility] Last Admin: 04/11/17 11:15 Dose: 600 mg Albuterol Sulfate (Ventolin 0.083% Nebulizer Soln -) 1 amp NEB Q6H PRN PRN Reason: SHORT OF BREATH/WHEEZING Last Admin: 04/11/17 07:30 Dose: 1 amp Atorvastatin Calcium (Lipitor -) 20 mg PO HS [facility] Last Admin: 04/10/17 22:08 Dose: 20 mg Cholecalciferol (Vitamin D3 -) 2,000 unit PO DAILY [facility] Last Admin: 04/11/17 09:09 Dose: 2,000 unit Dextrose (D50w (Vial) -) 25 gm IVPUSH PRN PRN PRN Reason: hypoglycemia <75 Diltiazem HCl (Cardizem -) 60 mg PO TID [facility] Last Admin: 04/11/17 06:17 Dose: 60 mg Docusate Sodium (Colace -) 100 mg PO BID [facility] Last Admin: 04/11/17 09:09 Dose: 100 mg Furosemide (Lasix -) 40 mg PO DAILY [facility] Last Admin: 04/11/17 09:09 Dose: 40 mg Guaifenesin (Mucinex -) 600 mg PO BID [facility] Last Admin: 04/11/17 09:09 Dose: 600 mg Cefepime HCl (Maxipime 1 Gm Premix Ivpb) 1 gm in 50 mls @ 100 mls/hr IVPB BID [facility] Last Admin: 04/11/17 09:08 Dose: 100 mls/hr Vancomycin HCl 750 mg/ (Dextrose) 250 mls @ 250 mls/hr IVPB DAILY [facility] PRN Reason: Protocol Last Admin: 04/11/17 10:50 Dose: 250 mls/hr Insulin Aspart (Novolog Vial Sliding Scale -) 1 vial SQ ACHS [facility] PRN Reason: Protocol Last Admin: 04/11/17 12:28 Dose: 8 units Methylprednisolone Sodium Succinate (Solu-Medrol -) 40 mg IVPUSH Q6H-IV [facility] Stop: 04/11/17 15:00 Last Admin: 04/11/17 09:08 Dose: 40 mg Metoprolol Succinate (Toprol Xl -) 50 mg PO DAILY [facility] Last Admin: 04/11/17 09:09 Dose: 50 mg Montelukast Sodium (Singulair -) 10 mg PO HS [facility] Last Admin: 04/10/17 22:08 Dose: 10 mg Oseltamivir Phosphate (Tamiflu -) 30 mg PO BID [facility] Stop: 04/14/17 10:01 Last Admin: 04/11/17 09:10 Dose: 30 mg Polyethylene Glycol (Miralax (For Daily Use) -) 17 gm PO BID [facility] Last Admin: 04/10/17 22:08 Dose: Not Given Propylthiouracil (Ptu -) 50 mg PO DAILY [facility] Last Admin: 04/11/17 09:09 Dose: 50 mg Constitutional: Yes: Lethargic, confused, NIPPV Eyes: Yes: WNL HENT: Yes: WNL Neck: Yes: WNL Cardiovascular: Yes: Pulse Irregular, S1, S2 Respiratory: Yes: Bilateral rhonchi and crackles Gastrointestinal: Yes: Normal Bowel Sounds, Soft Extremities: Yes: WNL Edema: No Labs: Laboratory Results - last 24 hr 04/10/17 04/10/17 04/10/17 16:14 18:31 22:43 WBC RBC Hgb Hct MCV MCH MCHC RDW Plt Count MPV Neutrophils % Lymphocytes % Monocytes % Eosinophils % Basophils % PT with INR INR Sodium Potassium Chloride Carbon Dioxide Anion Gap BUN Creatinine POC Glucometer 78 202 271 Random Glucose Calcium Phosphorus Magnesium 04/11/17 04/11/17 04/11/17 05:59 07:04 07:04 WBC 6.7 RBC 3.05 L Hgb 8.4 L Hct 27.0 L MCV 88.4 MCH 27.4 MCHC 31.0 L RDW 20.7 H Plt Count 210 D MPV 9.7 D Neutrophils % 88.1 H Lymphocytes % 8.3 D Monocytes % 3.3 L Eosinophils % 0.1 D Basophils % 0.2 PT with INR 50.20 H INR 4.44 H* D Sodium Potassium Chloride Carbon Dioxide Anion Gap BUN Creatinine POC Glucometer 116 Random Glucose Calcium Phosphorus Magnesium 04/11/17 04/11/17 07:04 12:12 WBC RBC Hgb Hct MCV MCH MCHC RDW Plt Count MPV Neutrophils % Lymphocytes % Monocytes % Eosinophils % Basophils % PT with INR INR Sodium 146 H Potassium 3.6 Chloride 108 H Carbon Dioxide 32 Anion Gap 6 L BUN 28 H Creatinine 0.8 POC Glucometer 345 Random Glucose 110 H Calcium 7.7 L Phosphorus 2.7 Magnesium 1.8 Problem List - Problems (1) COPD (chronic obstructive pulmonary disease) Code(s): J44.9 - CHRONIC OBSTRUCTIVE PULMONARY DISEASE, UNSPECIFIED (2) Chronic a-fib Code(s): I48.2 - CHRONIC ATRIAL FIBRILLATION (3) Pneumonia Code(s): J18.9 - PNEUMONIA, UNSPECIFIED ORGANISM (4) SOB (shortness of breath) Code(s): R06.02 - SHORTNESS OF BREATH (5) Meningioma Code(s): D32.9 - BENIGN NEOPLASM OF MENINGES, UNSPECIFIED (6) Multiple myeloma Code(s): C90.00 - MULTIPLE MYELOMA NOT HAVING ACHIEVED REMISSION Qualifiers: Multiple myeloma remission status: not in remission Qualified Code(s): C90.00 - Multiple myeloma not having achieved remission (7) Acute respiratory failure with hypoxia and hypercapnia Code(s): J96.01 - ACUTE RESPIRATORY FAILURE WITH HYPOXIA; J96.02 - ACUTE RESPIRATORY FAILURE WITH HYPERCAPNIA (8) Congestive heart failure Code(s): I50.9 - HEART FAILURE, UNSPECIFIED Qualifiers: Congestive heart failure type: diastolic Congestive heart failure chronicity: chronic Qualified Code(s): I50.32 - Chronic diastolic (congestive ) heart failure (9) Diabetes mellitus Code(s): E11.9 - TYPE 2 DIABETES MELLITUS WITHOUT COMPLICATIONS Assessment/Plan IMP ACUTE HYPOXEMIC/HYPERCAPNEIC RESPIRATORY FAILURE IMPROVING PNEUMONIA CHF AFIB COPD DM MM ANEMIA PLAN O2 NIPPV SUPPORT INHALED BRONCHODILATORS RATE CONTROL PER CARDIOLOGY MONITOR H+H ASPIRATION PRECAUTIONS DR MARQUEZ
[2017-04-11] MEDS: POLYETHYLENE GLYCOL 3350 119 GM BTL PO SCH (14:45)
--- NOTE | 2017-04-11 17:50 | PN ---
Progress Note (short form) - Note Progress Note: Patient seen and examined feels slightly better Last Vital Signs Temp Pulse Resp BP Pulse Ox 99.8 F H 100 H 22 110/70 98 04/11/17 10:00 04/11/17 10:00 04/11/17 10:00 04/11/17 10:00 04/11/17 17:33 Cor: RSR, No murmurs, No gallops Lungs: decreased at bases Abd: Soft, Normal bowel sounds, No organomegaly Ext:No significant edema Abnormal Lab Results 04/11/17 04/11/17 04/11/17 07:04 07:04 07:04 RBC 3.05 L Hgb 8.4 L Hct 27.0 L MCHC 31.0 L RDW 20.7 H Neutrophils % 88.1 H Monocytes % 3.3 L PT with INR 50.20 H INR 4.44 H* D Sodium 146 H Chloride 108 H Anion Gap 6 L BUN 28 H Random Glucose 110 H Calcium 7.7 L Magnesium 04/11/17 15:30 RBC Hgb Hct MCHC RDW Neutrophils % Monocytes % PT with INR INR Sodium Chloride Anion Gap BUN Random Glucose Calcium Magnesium 1.6 L Active Medications Generic Name Dose Route Start Last Admin Trade Name Freq PRN Reason Stop Dose Admin Acetaminophen 650 mg 04/02/17 23:43 04/09/17 10:47 Tylenol - PO 650 mg Q12H PRN Administration PAIN Acetaminophen 850 mg 04/05/17 22:41 04/10/17 22:06 Ofirmev Injection - IVPB 850 mg Q8H PRN Administration Acetylcysteine 600 mg 04/06/17 02:00 04/11/17 16:00 Mucomyst 20 Oral / Inh Use Only* NEB 600 mg RQID [facility] Administration Albuterol Sulfate 1 amp 04/02/17 23:43 04/11/17 16:00 Ventolin 0.083% Nebulizer Soln - NEB 1 amp Q6H PRN Administration SHORT OF BREATH/WHEEZING Atorvastatin Calcium 20 mg 04/03/17 22:00 04/10/17 22:08 Lipitor - PO 20 mg HS [facility] Administration Cholecalciferol 2,000 unit 04/03/17 10:00 04/11/17 09:09 Vitamin D3 - PO 2,000 unit DAILY [facility] Administration Dextrose 25 gm 04/10/17 16:25 D50w (Vial) - IVPUSH PRN PRN hypoglycemia <75 Diltiazem HCl 60 mg 04/04/17 15:45 04/11/17 14:45 Cardizem - PO 60 mg TID [facility] Administration Docusate Sodium 100 mg 04/03/17 10:00 04/11/17 09:09 Colace - PO 100 mg BID [facility] Administration Furosemide 40 mg 04/05/17 11:15 04/11/17 09:09 Lasix - PO 40 mg DAILY [facility] Administration Guaifenesin 600 mg 04/06/17 01:30 04/11/17 09:09 Mucinex - PO 600 mg BID [facility] Administration Cefepime HCl 1 gm in 50 mls @ 100 mls/hr 04/09/17 18:00 04/11/17 09:08 Maxipime 1 Gm Premix Ivpb IVPB 100 mls/hr BID [facility] Administration Vancomycin HCl 750 mg/ 250 mls @ 250 mls/hr 04/10/17 18:00 04/11/17 10:50 Dextrose IVPB 250 mls/hr DAILY [facility] Administration Protocol Insulin Aspart 1 vial 04/03/17 07:00 04/11/17 16:38 Novolog Vial Sliding Scale - SQ 8 units ACHS BUR[facility] Administration Protocol Metoprolol Succinate 50 mg 04/06/17 10:00 04/11/17 09:09 Toprol Xl - PO 50 mg DAILY [facility] Administration Montelukast Sodium 10 mg 04/03/17 22:00 04/10/17 22:08 Singulair - PO 10 mg HS [facility] Administration Oseltamivir Phosphate 30 mg 04/09/17 22:00 04/11/17 09:10 Tamiflu - PO 04/14/17 10:01 30 mg BID [facility] Administration Polyethylene Glycol 17 gm 04/03/17 10:00 04/11/17 14:45 Miralax (For Daily Use) - PO 17 grams BID [facility] Administration Propylthiouracil 50 mg 04/03/17 10:00 04/11/17 09:09 Ptu - PO 50 mg DAILY [facility] Administration A/P 86 y/o female with myeloma,on palliative care also with flu/pneumonia on BIPAP agree with vanco/cefepime
--- NOTE | 2017-04-11 19:00 | PN ---
Progress Note (short form) - Note Progress Note: remains febrile remains on bipap family in discussion about advanced directives on bipap Vital Signs Period Temp Pulse Resp BP Sys/Nieto Pulse Ox Last 24 Hr 98.0 F-102 F 90-100 22-24 108-117/62-70 96-99 cor-rrr lungs decreased bs at bases abd soft,nt ext no edema CBC, BMP 04/11/17 07:04 04/11/17 07:04 influenza a antigen positive Microbiology 04/05/17 14:30 Blood - Peripheral Venous Blood Culture - Final NO GROWTH AFTER 5 DAYS INCUBATION 04/05/17 14:25 Blood - Peripheral Venous Blood Culture - Final NO GROWTH AFTER 5 DAYS INCUBATION 04/09/17 17:04 Urine - Urine - Catheterized Legionella Antigen - Final 04/09/17 17:04 Urine - Urine - Catheterized Streptococcus pneumoniae Antigen (M - Final 04/09/17 17:00 Nasopharyngeal Swab Influenza Types A,B Antigen (MICHAEL) - Final 04/09/17 17:00 Nasopharyngeal Swab - Final legionella antigen negative a/p fevers /hyopoxia- influenza A- continue tamiflu , continue cefepime/vancomcyin, vanco trough in am compression fractures (lumbar and thoracic) multiple myeloma advanced directives being discussed afib- management per cardiology per cardiology overall prognosis is poor
[2017-04-12] MEDS: OSELTAMIVIR PHOSPHATE 30 MG CAPSULE PO SCH ×3 (00:01→22:26)
[2017-04-12] MEDS: INSULIN SLIDING SCALE (NOVOLOG) 1 VIAL SQ SCH ×5 (00:01→22:26)
[2017-04-12] MEDS: POLYETHYLENE GLYCOL 3350 119 GM BTL PO SCH ×3 (00:01→22:28)
[2017-04-12] MEDS: CEFEPIME HCL/D5W 1 GM/50 ML BAG IVPB SCH ×3 (00:01→22:28)
[2017-04-12] MEDS: dilTIAZem HCL 60 MG TABLET (FP) PO SCH ×4 (07:12→22:27)
[2017-04-12 07:19] LABS: BASO % 0.2 % (0-2.0); EOS % 0.1 % (0-4.5); HEMATOCRIT 27.7 % (32.4-45.2); HEMOGLOBIN 8.6 GM/dL (10.7-15.3); LYMPH % 6.5 % (8-40); MCH 27.5 pg (25.7-33.7); MEAN CELL VOLUME 88.5 fl (80-96); MEAN PLT VOLUME 9.8 fl (7.5-11.1); NEUT % 87.2 % (42.8-82.8); PLATELET COUNT 279 K/MM3 (134-434); RBC 3.13 M/mm3 (3.60-5.2); RDW 20.3 % (11.6-15.6); WHITE BLOOD COUNT 6.5 K/mm3 (4.0-10.0)
[2017-04-12 08:18] LABS: ALK PHOS 109 U/L (45-117); ANION GAP 6 (8-16); BILIRUBIN,TOTAL 0.8 mg/dL (0.2-1.0); BLOOD UREA NITROGEN 33 mg/dL (7-18); CALCIUM 8.1 mg/dL (8.5-10.1); CHLORIDE 112 mmol/L (98-107); CO2 31 mmol/L (21-32); CREATININE 0.9 mg/dL (0.55-1.02); GLUCOSE,RANDOM 114 mg/dL (74-106); SGPT/ALT 43 U/L (12-78); SODIUM 149 mmol/L (136-145); TOT PROT 8.9 g/dl (6.4-8.2)
[2017-04-12 08:24] LABS: POTASSIUM 3.3 mmol/L (3.5-5.1); SGOT/AST 107 U/L (15-37)
[2017-04-12] MEDS: ACETYLCYSTEINE 20% 200MG/ML 30 ML VIAL *FOR ORAL / INH USE ONLY NEB SCH ×2 (08:47→12:25)
[2017-04-12] MEDS: ALBUTEROL SO4 0.083% IH SOL 2.5 MG/3 ML VIAL.NEB. NEB PRN ×2 (08:47→12:26)
[2017-04-12] MEDS: FUROSEMIDE 40 MG TABLET (FP) PO SCH (09:18)
[2017-04-12] MEDS: CHOLECALCIFEROL (VITAMIN D3) 1,000 UNIT TABLET (FP) PO SCH (09:18)
[2017-04-12] MEDS: guaiFENesin 600 MG TABLET.ER (FP) PO SCH ×3 (09:19→22:28)
[2017-04-12] MEDS: METOPROLOL SUCCINATE 50 MG TAB.SR.24H (FP) PO SCH (09:19)
[2017-04-12] MEDS: PROPYLTHIOURACIL 50 MG TABLET (UD) PO SCH (09:20)
[2017-04-12] MEDS: VANCOMYCIN 750 MG in DEXTROSE 5%-WATER - 250 ML IVPB SCH (09:20)
[2017-04-12] MEDS: DOCUSATE SODIUM 100 MG CAPSULE (FP) PO SCH ×3 (09:21→22:27)
[2017-04-12] MEDS: ACETAMINOPHEN 1000 MG/100 ML VIAL (NON FORMULARY) IVPB PRN (10:00)
[2017-04-12 10:33] LABS: INR 8.5 (0.82-1.09)
--- NOTE | 2017-04-12 11:06 | PN ---
Progress Note, Physician History of Present Illness: Agitated this AM No other events overnight No bleeding. Pulling off BiPAP at time with desaturation requiring sedation - Current Medication List Current Medications: Active Medications Acetaminophen (Tylenol -) 650 mg PO Q12H PRN PRN Reason: PAIN Last Admin: 04/09/17 10:47 Dose: 650 mg Acetaminophen (Ofirmev Injection -) 850 mg IVPB Q8H PRN Last Admin: 04/10/17 22:06 Dose: 850 mg Acetylcysteine (Mucomyst 20 Oral / Inh Use Only*) 600 mg NEB RQID [facility] Last Admin: 04/12/17 08:47 Dose: 600 mg Albuterol Sulfate (Ventolin 0.083% Nebulizer Soln -) 1 amp NEB Q6H PRN PRN Reason: SHORT OF BREATH/WHEEZING Last Admin: 04/12/17 08:47 Dose: 1 amp Atorvastatin Calcium (Lipitor -) 20 mg PO HS [facility] Last Admin: 04/12/17 00:00 Dose: 20 mg Cholecalciferol (Vitamin D3 -) 2,000 unit PO DAILY [facility] Last Admin: 04/12/17 09:18 Dose: 2,000 unit Dextrose (D50w (Vial) -) 25 gm IVPUSH PRN PRN PRN Reason: hypoglycemia <75 Diltiazem HCl (Cardizem -) 60 mg PO TID [facility] Last Admin: 04/12/17 07:12 Dose: 60 mg Docusate Sodium (Colace -) 100 mg PO BID [facility] Last Admin: 04/12/17 09:21 Dose: 100 mg Furosemide (Lasix -) 40 mg PO DAILY [facility] Last Admin: 04/12/17 09:18 Dose: 40 mg Guaifenesin (Mucinex -) 600 mg PO BID [facility] Last Admin: 04/12/17 09:19 Dose: 600 mg Cefepime HCl (Maxipime 1 Gm Premix Ivpb) 1 gm in 50 mls @ 100 mls/hr IVPB BID [facility] Last Admin: 04/12/17 09:20 Dose: 100 mls/hr Vancomycin HCl 750 mg/ (Dextrose) 250 mls @ 250 mls/hr IVPB DAILY [facility] PRN Reason: Protocol Last Admin: 04/12/17 09:20 Dose: 250 mls/hr Insulin Aspart (Novolog Vial Sliding Scale -) 1 vial SQ ACHS [facility] PRN Reason: Protocol Last Admin: 04/12/17 07:11 Dose: Not Given Metoprolol Succinate (Toprol Xl -) 50 mg PO DAILY [facility] Last Admin: 04/12/17 09:19 Dose: 50 mg Montelukast Sodium (Singulair -) 10 mg PO HS [facility] Last Admin: 04/12/17 00:00 Dose: 10 mg Oseltamivir Phosphate (Tamiflu -) 30 mg PO BID [facility] Stop: 04/14/17 10:01 Last Admin: 04/12/17 09:20 Dose: 30 mg Polyethylene Glycol (Miralax (For Daily Use) -) 17 gm PO BID [facility] Last Admin: 04/12/17 09:20 Dose: Not Given Propylthiouracil (Ptu -) 50 mg PO DAILY [facility] Last Admin: 04/12/17 09:20 Dose: 50 mg - Objective Vital Signs: Vital Signs Temperature 98.1 F 04/11/17 22:00 Pulse Rate 107 H 04/12/17 10:57 Respiratory Rate 20 04/12/17 06:00 Blood Pressure 109/77 04/12/17 06:00 O2 Sat by Pulse Oximetry (%) 94 L 04/12/17 10:57 Constitutional: Yes: No Distress Eyes: Yes: WNL HENT: Yes: WNL Neck: Yes: WNL Cardiovascular: Yes: Pulse Irregular Respiratory: Yes: CTA Bilaterally Gastrointestinal: Yes: WNL Extremities: Yes: WNL Edema: No Labs: CBC, BMP 04/12/17 06:26 04/12/17 06:26 INR, PTT INR 8.50 (0.82-1.09) H* D 04/12/17 06:26 Assessment/Plan acute hypoxic resp failure, PNA, sepsis: - lactate elevated initially, with PNA. - spiked to 101.7 on 04/05. - recently euvolemic off of bumex as outpatient (bumex held when here 2017 with progressive myeloma bony pain and poor po, with dehydration and hypercalcemia) - multifactorial chronic sob (copd, diast chf, and ? related to very large hiatal hernia). - here with worsened sob than baseline, CT chest with findings of PNA - nonspecific findings of possible interstitial edema on CT (vs chronic interstitial changes--comparison to prior CT not described on report). in absence of pleural effusions or signs of volume on exam, will not agggressively diurese (hold diuretics) - on abx for PNA - 04/05: overnight signif incr resp distress with very diminished breath sounds. rpt CXR remains prohibitively TDS sec to pt position/rotated, diffuse changes bilat not obviously different vs prior 04/02 (images reviewed). - given lasix 40 ivp, bun/creat ok, BP downtrended but remains >100 syst. standing lasix 40 qd ordered - 04/06-04/09: resp status stable. no JVD appreciated. labs stable. continue lasix 40 po daily. -04/10: question of asp pna. Cont abx per id. Cont po lasix. - suppl O2 04/11- - increased aggitation requiring sedation. Continue Lasix 40mg daily, BUN/Cr stable Afib - controlled at "lenient rate control" targest on home regimen: DILTIAZEM (60 AM , 60 LUNCH, 30 PM) AND LOW DOSE TOPROL (25). (has h/o bradycardia and hypotension of ? etiology--stable long time on reduced med regimen). - 04/04: currently HRs running 120-140 often, in setting of acute PNA this is likely physiologic. - has had no hypotensive episodes here. will incr diltiazem to 60 TID. - also note she is receiving lopressor 25 qd not toprol--hence early AM tachy is related to clearance of short-acting drug formulation. change back to toprol 25 qd - 04/05: HR now well controlled with above adjustments, cont same meds. - 04/06: HR tachy again overnight in setting of fever (prn dose of extra toprol given, and incr'd daily dose to 50 qd). HR well controlled since. - same meds (toprol 50 qd, dilt 60 tid). suspect will be able to go back down to prior home dose once PNA resolves. - 04/07-: HR improved on higher toprol dose. con't same meds. - cont coumadin (goal INR 2-3), dose prn daily levels - pain control per pmd. -04/11/2017 Elevated INR today, Hold coumadin today -04/12/2017 - very elevated INR. No bleeding. Hgb stable (8.6). Given degree of elevation and coumadin held yest, suspect interaction/potentiation from steroids (methylpred). Would given Vit K 2.5mg this AM.
[2017-04-12] MEDS ORDERED: PHYTONADIONE 5 MG TABLET PO ONE ×2 (11:11→11:40)
--- NOTE | 2017-04-12 11:41 | PN ---
Progress Note, Physician Chief Complaint: Remained at base line , on CPAP, < O2 sat 94 low grade fever History of Present Illness: 86 year old female with past medical history of multiple myeloma, Afib, CHF, and diabetes who presents to the ED with complaints of cough, SOB, chest pain, and abdominal pain, with divericullitis complicated course with Afib with RVR, HCAP and Influenza infection withrespiratory failure. - Current Medication List Current Medications: Active Medications Acetaminophen (Tylenol -) 650 mg PO Q12H PRN PRN Reason: PAIN Last Admin: 04/09/17 10:47 Dose: 650 mg Acetaminophen (Ofirmev Injection -) 850 mg IVPB Q8H PRN Last Admin: 04/10/17 22:06 Dose: 850 mg Acetylcysteine (Mucomyst 20 Oral / Inh Use Only*) 600 mg NEB RQID [facility] Last Admin: 04/12/17 08:47 Dose: 600 mg Atorvastatin Calcium (Lipitor -) 20 mg PO HS [facility] Last Admin: 04/12/17 00:00 Dose: 20 mg Cholecalciferol (Vitamin D3 -) 2,000 unit PO DAILY [facility] Last Admin: 04/12/17 09:18 Dose: 2,000 unit Dextrose (D50w (Vial) -) 25 gm IVPUSH PRN PRN PRN Reason: hypoglycemia <75 Diltiazem HCl (Cardizem -) 60 mg PO TID [facility] Last Admin: 04/12/17 07:12 Dose: 60 mg Docusate Sodium (Colace -) 100 mg PO BID [facility] Last Admin: 04/12/17 09:21 Dose: 100 mg Furosemide (Lasix -) 40 mg PO DAILY [facility] Last Admin: 04/12/17 09:18 Dose: 40 mg Guaifenesin (Mucinex -) 600 mg PO BID [facility] Last Admin: 04/12/17 09:19 Dose: 600 mg Cefepime HCl (Maxipime 1 Gm Premix Ivpb) 1 gm in 50 mls @ 100 mls/hr IVPB BID [facility] Last Admin: 04/12/17 09:20 Dose: 100 mls/hr Vancomycin HCl 750 mg/ (Dextrose) 250 mls @ 250 mls/hr IVPB DAILY [facility] PRN Reason: Protocol Last Admin: 04/12/17 09:20 Dose: 250 mls/hr Insulin Aspart (Novolog Vial Sliding Scale -) 1 vial SQ ACHS [facility] PRN Reason: Protocol Last Admin: 04/12/17 07:11 Dose: Not Given Metoprolol Succinate (Toprol Xl -) 50 mg PO DAILY [facility] Last Admin: 04/12/17 09:19 Dose: 50 mg Montelukast Sodium (Singulair -) 10 mg PO HS [facility] Last Admin: 04/12/17 00:00 Dose: 10 mg Oseltamivir Phosphate (Tamiflu -) 30 mg PO BID [facility] Stop: 04/14/17 10:01 Last Admin: 04/12/17 09:20 Dose: 30 mg Polyethylene Glycol (Miralax (For Daily Use) -) 17 gm PO BID [facility] Last Admin: 04/12/17 09:20 Dose: Not Given Propylthiouracil (Ptu -) 50 mg PO DAILY [facility] Last Admin: 04/12/17 09:20 Dose: 50 mg - Objective Vital Signs: Vital Signs Temperature 98.1 F 04/11/17 22:00 Pulse Rate 107 H 04/12/17 10:57 Respiratory Rate 20 04/12/17 06:00 Blood Pressure 109/77 04/12/17 06:00 O2 Sat by Pulse Oximetry (%) 94 L 04/12/17 10:57 Elderly F sick looking , drowsy bur responding to command mild respiratory distress. HEENT: Mm moist, pale, anemia +, no thrush NECK: No NVD No Bruit CHEST: b/l diffuse basal Crepts CVS: S1S2 IR tachycardia ABD: No distention Mild tender, Bs + EXT: Trace Edema , no calf tenderness, pulses + [employer]: lethargic, responding to verbal command. moving all extremities. . Labs: CBC, BMP 04/12/17 06:26 04/12/17 06:26 INR, PTT INR 8.50 (0.82-1.09) H* D 04/12/17 06:26 Problem List - Problems (1) Pneumonia Assessment/Plan: On IV abx for HCAP Cefepime and Vancomycin and Tamiflu trended normal, but patient is febrile discussed with ID consult recommenced current abx F/U U and blood culture. Code(s): J18.9 - PNEUMONIA, UNSPECIFIED ORGANISM (2) Anemia Assessment/Plan: Chronic H/H 7.8 almost at base line Code(s): D64.9 - ANEMIA, UNSPECIFIED Qualifiers: Anemia type: unspecified type Qualified Code(s): D64.9 - Anemia, unspecified (3) Chronic a-fib Assessment/Plan: Rate controlled cont current management off AC F/U PT INR. r. Code(s): I48.2 - CHRONIC ATRIAL FIBRILLATION (4) T2DM (type 2 diabetes mellitus) Assessment/Plan: Optimize Glycemic control. Code(s): E11.9 - TYPE 2 DIABETES MELLITUS WITHOUT COMPLICATIONS Qualifiers: Diabetes mellitus complication status: with neurologic complications (5) Vertebral fracture Assessment/Plan: Lumbar vertebral compression fracture of undermined age , no compressive signs. hold Narcotic cont IV tylenol Code(s): [id number] - Qualifiers: Encounter type: initial encounter Fracture of vertebra location: lumbar Lumbar vertebra fracture level: unspecified lumbar vertebra Fracture type: closed Fracture morphology: other fracture Qualified Code(s): S32.008A - Other fracture of unspecified lumbar vertebra, initial encounter for closed fracture (6) COPD (chronic obstructive pulmonary disease) Code(s): J44.9 - CHRONIC OBSTRUCTIVE PULMONARY DISEASE, UNSPECIFIED (7) SOB (shortness of breath) Assessment/Plan: Due to Pulmonary congestion and Pneumonia F/U clinically Code(s): R06.02 - SHORTNESS OF BREATH (8) Hypokalemia Assessment/Plan: Repleted Code(s): E87.6 - HYPOKALEMIA (9) Influenza A Assessment/Plan: On Tamiflu Code(s): J10.1 - FLU DUE TO OTH IDENT INFLUENZA VIRUS W OTH RESP MANIFEST
[2017-04-12] MEDS ORDERED: LORazepam 2 MG/ML SDV VIAL IVPUSH ONE (12:05)
[2017-04-12] MEDS ORDERED: LORazepam 2 MG/ML SDV VIAL ONE (12:06)
--- NOTE | 2017-04-12 14:18 | PN ---
Progress Note (short form) - Note Progress Note: More awake and interactive today. Agitated on NIPPV, but saturating well. Intake & Output 04/09/17 04/10/17 04/11/17 04/12/17 23:59 23:59 23:59 23:59 Intake Total 421 750 260 Balance 421 750 260 Last Vital Signs Temp Pulse Resp BP Pulse Ox 98.1 F 107 H 20 109/77 94 L 04/11/17 22:00 04/12/17 10:57 04/12/17 06:00 04/12/17 06:00 04/12/17 10:57 Active Medications Acetaminophen (Tylenol -) 650 mg PO Q12H PRN PRN Reason: PAIN Last Admin: 04/09/17 10:47 Dose: 650 mg Acetaminophen (Ofirmev Injection -) 850 mg IVPB Q8H PRN Last Admin: 04/10/17 22:06 Dose: 850 mg Acetylcysteine (Mucomyst 20 Oral / Inh Use Only*) 600 mg NEB RQID [facility] Last Admin: 04/12/17 12:25 Dose: 600 mg Atorvastatin Calcium (Lipitor -) 20 mg PO HS [facility] Last Admin: 04/12/17 00:00 Dose: 20 mg Cholecalciferol (Vitamin D3 -) 2,000 unit PO DAILY [facility] Last Admin: 04/12/17 09:18 Dose: 2,000 unit Dextrose (D50w (Vial) -) 25 gm IVPUSH PRN PRN PRN Reason: hypoglycemia <75 Diltiazem HCl (Cardizem -) 60 mg PO TID [facility] Last Admin: 04/12/17 07:12 Dose: 60 mg Docusate Sodium (Colace -) 100 mg PO BID [facility] Last Admin: 04/12/17 09:21 Dose: 100 mg Furosemide (Lasix -) 40 mg PO DAILY [facility] Last Admin: 04/12/17 09:18 Dose: 40 mg Guaifenesin (Mucinex -) 600 mg PO BID [facility] Last Admin: 04/12/17 09:19 Dose: 600 mg Cefepime HCl (Maxipime 1 Gm Premix Ivpb) 1 gm in 50 mls @ 100 mls/hr IVPB BID [facility] Last Admin: 04/12/17 09:20 Dose: 100 mls/hr Vancomycin HCl 750 mg/ (Dextrose) 250 mls @ 250 mls/hr IVPB DAILY [facility] PRN Reason: Protocol Last Admin: 04/12/17 09:20 Dose: 250 mls/hr Insulin Aspart (Novolog Vial Sliding Scale -) 1 vial SQ ACHS [facility] PRN Reason: Protocol Last Admin: 04/12/17 07:11 Dose: Not Given Lorazepam (Ativan Injection -) 0.25 mg IM TID PRN PRN Reason: ANXIETY Metoprolol Succinate (Toprol Xl -) 50 mg PO DAILY [facility] Last Admin: 04/12/17 09:19 Dose: 50 mg Montelukast Sodium (Singulair -) 10 mg PO HS [facility] Last Admin: 04/12/17 00:00 Dose: 10 mg Oseltamivir Phosphate (Tamiflu -) 30 mg PO BID [facility] Stop: 04/14/17 10:01 Last Admin: 04/12/17 09:20 Dose: 30 mg Polyethylene Glycol (Miralax (For Daily Use) -) 17 gm PO BID [facility] Last Admin: 04/12/17 09:20 Dose: Not Given Propylthiouracil (Ptu -) 50 mg PO DAILY [facility] Last Admin: 04/12/17 09:20 Dose: 50 mg Constitutional: Yes: Awake and interactive, on NIPPV Eyes: Yes: WNL HENT: Yes: WNL Neck: Yes: WNL Cardiovascular: Yes: Pulse Irregular, S1, S2 Respiratory: Yes: Bilateral rhonchi and crackles Gastrointestinal: Yes: Normal Bowel Sounds, Soft Extremities: Yes: WNL Edema: No Labs: Laboratory Results - last 24 hr 04/04/17 04/11/17 04/11/17 05:48 15:30 16:35 WBC RBC Hgb Hct MCV MCH MCHC RDW Plt Count MPV Neutrophils % Lymphocytes % Monocytes % Eosinophils % Basophils % PT with INR INR Sodium Potassium Chloride Carbon Dioxide Anion Gap BUN Creatinine Creat Clearance w eGFR POC Glucometer 329 Random Glucose Calcium Magnesium 1.6 L Total Bilirubin AST ALT Alkaline Phosphatase Total Protein Albumin Globulin 7.0 H Beta Globulins 0.8 Vancomycin Pre-Dose SHANE & SPEP Interp Total Protein (SHANE) 10.8 H Albumin (SHANE) 3.8 Albumin/Globulin (SHANE) 0.6 L Jjlrz-[id number] SHANE 0.4 Grmxf-6-Vmhldequp SHANE 0.9 Gamma Globulins (SHANE) 4.9 H SHANE [place] 4.7 H SHANE Comments IEP IgG 5962 H IEP IgA 9 L IEP IgM <5 L 04/11/17 04/12/17 04/12/17 22:56 06:26 06:26 WBC 6.5 RBC 3.13 L Hgb 8.6 L Hct 27.7 L MCV 88.5 MCH 27.5 MCHC 31.0 L RDW 20.3 H Plt Count 279 D MPV 9.8 Neutrophils % 87.2 H Lymphocytes % 6.5 L D Monocytes % 6.0 D Eosinophils % 0.1 Basophils % 0.2 PT with INR 96.00 H INR 8.50 H* D Sodium Potassium Chloride Carbon Dioxide Anion Gap BUN Creatinine Creat Clearance w eGFR POC Glucometer 265 Random Glucose Calcium Magnesium Total Bilirubin AST ALT Alkaline Phosphatase Total Protein Albumin Globulin Beta Globulins Vancomycin Pre-Dose SHANE & SPEP Interp Total Protein (SHANE) Albumin (SHANE) Albumin/Globulin (SHANE) Fpfxw-5-Owolissmd SHANE Kgitu-6-Fylxiwihi SHANE Gamma Globulins (SHANE) SHANE [place] SHANE Comments IEP IgG IEP IgA IEP IgM 04/12/17 04/12/17 04/12/17 06:26 07:02 09:50 WBC RBC Hgb Hct MCV MCH MCHC RDW Plt Count MPV Neutrophils % Lymphocytes % Monocytes % Eosinophils % Basophils % PT with INR INR Sodium 149 H Potassium 3.3 L Chloride 112 H Carbon Dioxide 31 Anion Gap 6 L BUN 33 H Creatinine 0.9 Creat Clearance w eGFR 59.09 POC Glucometer 145 Random Glucose 114 H Calcium 8.1 L Magnesium Total Bilirubin 0.8 AST 107 H ALT 43 Alkaline Phosphatase 109 Total Protein 8.9 H Albumin 2.0 L Globulin Beta Globulins Vancomycin Pre-Dose 8.112 SHANE & SPEP Interp Total Protein (SHANE) Albumin (SHANE) Albumin/Globulin (SHANE) Pwfaw-8-Dcsbgfljg SHANE Nmysh-5-Hcssnosir SHANE Gamma Globulins (SHANE) SHANE [place] SHANE Comments IEP IgG IEP IgA IEP IgM 04/12/17 13:40 WBC RBC Hgb Hct MCV MCH MCHC RDW Plt Count MPV Neutrophils % Lymphocytes % Monocytes % Eosinophils % Basophils % PT with INR INR Sodium Potassium Chloride Carbon Dioxide Anion Gap BUN Creatinine Creat Clearance w eGFR POC Glucometer 299 Random Glucose Calcium Magnesium Total Bilirubin AST ALT Alkaline Phosphatase Total Protein Albumin Globulin Beta Globulins Vancomycin Pre-Dose SHANE & SPEP Interp Total Protein (SHANE) Albumin (SHANE) Albumin/Globulin (SHANE) Blrld-1-Qjknwntjx SHANE Ptbct-1-Jdgufkiur SHANE Gamma Globulins (SHANE) SHANE [place] SHANE Comments IEP IgG IEP IgA IEP IgM Problem List - Problems (1) COPD (chronic obstructive pulmonary disease) Code(s): J44.9 - CHRONIC OBSTRUCTIVE PULMONARY DISEASE, UNSPECIFIED (2) Chronic a-fib Code(s): I48.2 - CHRONIC ATRIAL FIBRILLATION (3) Pneumonia Code(s): J18.9 - PNEUMONIA, UNSPECIFIED ORGANISM (4) SOB (shortness of breath) Code(s): R06.02 - SHORTNESS OF BREATH (5) Meningioma Code(s): D32.9 - BENIGN NEOPLASM OF MENINGES, UNSPECIFIED (6) Multiple myeloma Code(s): C90.00 - MULTIPLE MYELOMA NOT HAVING ACHIEVED REMISSION Qualifiers: Multiple myeloma remission status: not in remission Qualified Code(s): C90.00 - Multiple myeloma not having achieved remission (7) Acute respiratory failure with hypoxia and hypercapnia Code(s): J96.01 - ACUTE RESPIRATORY FAILURE WITH HYPOXIA; J96.02 - ACUTE RESPIRATORY FAILURE WITH HYPERCAPNIA (8) Congestive heart failure Code(s): I50.9 - HEART FAILURE, UNSPECIFIED Qualifiers: Congestive heart failure type: diastolic Congestive heart failure chronicity: chronic Qualified Code(s): I50.32 - Chronic diastolic (congestive ) heart failure (9) Diabetes mellitus Code(s): E11.9 - TYPE 2 DIABETES MELLITUS WITHOUT COMPLICATIONS Assessment/Plan IMP ACUTE HYPOXEMIC/HYPERCAPNEIC RESPIRATORY FAILURE IMPROVING PNEUMONIA CHF AFIB COPD DM MM ANEMIA PLAN O2 NIPPV SUPPORT INHALED BRONCHODILATORS RATE CONTROL PER CARDIOLOGY MONITOR H+H ASPIRATION PRECAUTIONS ONGOING DISCUSSIONS FOR C DR MARQUEZ
--- NOTE | 2017-04-12 14:26 | PN ---
Progress Note (short form) - Note Progress Note: remains febrile-intermittent remains on bipap family in discussion about advanced directives on bipap alert but confused Vital Signs Period Temp Pulse Resp BP Sys/Nieto Pulse Ox Last 24 Hr 97.4 F-98.1 F 88-124 20-20 109-139/55-77 90-98 cor-rrr lungs decreased bs at bases abd soft,nt ext no edema CBC, BMP 04/12/17 06:26 04/12/17 06:26 Microbiology 04/09/17 16:00 Blood - Peripheral Venous Blood Culture - Preliminary NO GROWTH OBTAINED AFTER 48 HOURS, INCUBATION TO CONTINUE FOR 3 DAYS. 04/09/17 16:00 Blood - Peripheral Venous Blood Culture - Preliminary NO GROWTH OBTAINED AFTER 48 HOURS, INCUBATION TO CONTINUE FOR 3 DAYS. 04/09/17 17:00 Urine - Urine - Catheterized Urine Culture - Preliminary Group D Strep Or Entero Coccus 04/05/17 14:30 Blood - Peripheral Venous Blood Culture - Final NO GROWTH AFTER 5 DAYS INCUBATION 04/05/17 14:25 Blood - Peripheral Venous Blood Culture - Final NO GROWTH AFTER 5 DAYS INCUBATION 04/09/17 17:04 Urine - Urine - Catheterized Legionella Antigen - Final 04/09/17 17:04 Urine - Urine - Catheterized Streptococcus pneumoniae Antigen (M - Final 04/09/17 17:00 Nasopharyngeal Swab Influenza Types A,B Antigen (MICHAEL) - Final 04/09/17 17:00 Nasopharyngeal Swab - Final 04/05/17 14:30 Urine - Urine - Catheterized Urine Culture - Final NO GROWTH OBTAINED 03/30/17 13:50 Blood - Peripheral Venous Blood Culture - Final NO GROWTH AFTER 5 DAYS INCUBATION 03/30/17 13:45 Blood - Peripheral Venous Blood Culture - Final NO GROWTH AFTER 5 DAYS INCUBATION 03/30/17 01:10 Urine - Urine Clean Catch Urine Culture - Final NO GROWTH OBTAINED influenza a antigen positive Microbiology 04/05/17 14:30 Blood - Peripheral Venous Blood Culture - Final NO GROWTH AFTER 5 DAYS INCUBATION 04/05/17 14:25 Blood - Peripheral Venous Blood Culture - Final NO GROWTH AFTER 5 DAYS INCUBATION 04/09/17 17:04 Urine - Urine - Catheterized Legionella Antigen - Final 04/09/17 17:04 Urine - Urine - Catheterized Streptococcus pneumoniae Antigen (M - Final 04/09/17 17:00 Nasopharyngeal Swab Influenza Types A,B Antigen (MICHAEL) - Final 04/09/17 17:00 Nasopharyngeal Swab - Final legionella antigen negative a/p fevers /hyopoxia- influenza A- continue tamiflu day#3, continue cefepime/ vancomcyin day #3- vanco trough is 8 reculture increease vancomycin to 1 gram daily continue cefepime continue tamiflu continue bipap compression fractures (lumbar and thoracic) multiple myeloma advanced directives being discussed afib- management per cardiology per cardiology overall prognosis is poor
[2017-04-12] MEDS ORDERED: ALBUTEROL SO4 0.083% IH SOL 2.5 MG/3 ML VIAL.NEB. NEB ONE (17:02)
[2017-04-12] MEDS ORDERED: PT OWN MED DRAWER 7, Y5N ONE (17:24)
[2017-04-12] MEDS ORDERED: VANCOMYCIN 1 GRAM (PRE-DOCKED) 1,000 MG/250 ML BAG IVPB SCH (18:00)
[2017-04-12] MEDS: LORazepam 2 MG/ML SDV VIAL IM PRN (20:14)
[2017-04-12] MEDS: ACETYLCYSTEINE 20% 200MG/ML 4 ML VIAL *FOR ORAL / INH USE ONLY NEB SCH (20:58)
[2017-04-12] MEDS ORDERED: VANCOMYCIN 1,000 MG in DEXTROSE 5%-WATER - 250 ML IVPB SCH (21:45)
[2017-04-12] MEDS: ATORVASTATIN CA 20 MG TABLET (FP) PO SCH ×2 (22:27)
[2017-04-12] MEDS: MONTELUKAST NA 10 MG TABLET PO SCH ×2 (22:28)
[2017-04-13] MEDS: INSULIN SLIDING SCALE (NOVOLOG) 1 VIAL SQ SCH ×3 (06:07→23:12)
[2017-04-13] MEDS: dilTIAZem HCL 60 MG TABLET (FP) PO SCH ×3 (06:07→22:55)
[2017-04-13 07:09] LABS: BASO % 0.3 % (0-2.0); HEMATOCRIT 28.9 % (32.4-45.2); HEMOGLOBIN 8.8 GM/dL (10.7-15.3); LYMPH % 6.2 % (8-40); MCH 27.2 pg (25.7-33.7); MCHC 30.4 g/dl (32.0-36.0); MEAN CELL VOLUME 89.6 fl (80-96); MEAN PLT VOLUME 9.6 fl (7.5-11.1); MONO % 7.2 % (3.8-10.2); NEUT % 86.3 % (42.8-82.8); PLATELET COUNT 317 K/MM3 (134-434); RBC 3.22 M/mm3 (3.60-5.2); RDW 20.1 % (11.6-15.6)
[2017-04-13 07:33] LABS: PROTHROMBIN TIME (PATIENT) 68.3 SEC (9.98-11.88)
[2017-04-13] MEDS ORDERED: ALBUTEROL SO4 0.083% IH SOL 2.5 MG/3 ML VIAL.NEB. NEB ONE ×2 (07:39→20:53)
[2017-04-13 08:24] LABS: ANION GAP 7 (8-16); BLOOD UREA NITROGEN 38 mg/dL (7-18); CALCIUM 8.1 mg/dL (8.5-10.1); CHLORIDE 116 mmol/L (98-107); CO2 33 mmol/L (21-32); GLUCOSE,RANDOM 102 mg/dL (74-106); POTASSIUM 3.4 mmol/L (3.5-5.1); SODIUM 156 mmol/L (136-145)
[2017-04-13] MEDS ORDERED: PT OWN MED DRAWER 7, Y5N ONE ×3 (08:27→22:56)
[2017-04-13 08:37] LABS: INR 6.04 (0.82-1.09)
--- NOTE | 2017-04-13 08:59 | PN ---
Progress Note, Physician Chief Complaint: resp distress History of Present Illness: very sleepy this am, not opening eyes. appears comfortable--no distress noted per family at bedside ex cigs - Current Medication List Current Medications: Active Medications Acetaminophen (Tylenol -) 650 mg PO Q12H PRN PRN Reason: PAIN Last Admin: 04/09/17 10:47 Dose: 650 mg Acetaminophen (Ofirmev Injection -) 850 mg IVPB Q8H PRN Last Admin: 04/12/17 10:00 Dose: 850 mg Acetylcysteine (Mucomyst 20 Oral / Inh Use Only*) 600 mg NEB RQID [facility] Last Admin: 04/12/17 20:58 Dose: Not Given Atorvastatin Calcium (Lipitor -) 20 mg PO HS [facility] Last Admin: 04/12/17 22:27 Dose: 20 mg Cholecalciferol (Vitamin D3 -) 2,000 unit PO DAILY [facility] Last Admin: 04/12/17 09:18 Dose: 2,000 unit Dextrose (D50w (Vial) -) 25 gm IVPUSH PRN PRN PRN Reason: hypoglycemia <75 Diltiazem HCl (Cardizem -) 60 mg PO TID [facility] Last Admin: 04/13/17 06:07 Dose: 60 mg Docusate Sodium (Colace -) 100 mg PO BID [facility] Last Admin: 04/12/17 22:27 Dose: 100 mg Furosemide (Lasix -) 40 mg PO DAILY [facility] Last Admin: 04/12/17 09:18 Dose: 40 mg Guaifenesin (Mucinex -) 600 mg PO BID [facility] Last Admin: 04/12/17 22:28 Dose: 600 mg Cefepime HCl (Maxipime 1 Gm Premix Ivpb) 1 gm in 50 mls @ 100 mls/hr IVPB BID [facility] Last Admin: 04/12/17 22:28 Dose: 100 mls/hr Vancomycin HCl 1,000 mg/ (Dextrose) 250 mls @ 166.667 mls/hr IVPB Q24H [facility] Last Admin: 04/12/17 22:43 Dose: 166.667 mls/hr Insulin Aspart (Novolog Vial Sliding Scale -) 1 vial SQ ACHS [facility] PRN Reason: Protocol Last Admin: 04/13/17 06:07 Dose: Not Given Lorazepam (Ativan Injection -) 0.25 mg IM TID PRN PRN Reason: ANXIETY Last Admin: 04/12/17 20:14 Dose: 0.25 mg Metoprolol Succinate (Toprol Xl -) 50 mg PO DAILY [facility] Last Admin: 04/12/17 09:19 Dose: 50 mg Montelukast Sodium (Singulair -) 10 mg PO HS [facility] Last Admin: 04/12/17 22:28 Dose: 10 mg Oseltamivir Phosphate (Tamiflu -) 30 mg PO BID [facility] Stop: 04/14/17 10:01 Last Admin: 04/12/17 22:26 Dose: 30 mg Polyethylene Glycol (Miralax (For Daily Use) -) 17 gm PO BID [facility] Last Admin: 04/12/17 22:28 Dose: 17 grams Propylthiouracil (Ptu -) 50 mg PO DAILY [facility] Last Admin: 04/12/17 09:20 Dose: 50 mg - Objective Vital Signs: Vital Signs Temperature 97.4 F L 04/13/17 06:00 Pulse Rate 108 H 04/13/17 06:00 Respiratory Rate 18 04/13/17 06:00 Blood Pressure 140/74 04/13/17 06:00 O2 Sat by Pulse Oximetry (%) 100 04/12/17 21:00 Constitutional: Yes: No Distress, Calm Eyes: No: Sclera Icterus HENT: No: Nasal Congestion Cardiovascular: Yes: Pulse Irregular, S1, S2, Other (PMI non diplaced). No: JVD , Gallop, Murmur Respiratory: Yes: CTA Bilaterally (anteriorly (wrist restraints on)). No: Accessory Muscle Use, Rales, Wheezes Gastrointestinal: Yes: Normal Bowel Sounds, Soft. No: Tenderness Musculoskeletal: Yes: Other (No kyphosis) Extremities: No: Cold Edema: No Integumentary: No: Jaundice Neurological: No: Alert, Seizure Psychiatric: No: Agitated Labs: CBC, BMP 04/13/17 05:13 04/13/17 05:13 INR, PTT INR 6.04 (0.82-1.09) H* 04/13/17 06:15 - ....Imaging EKG: Other (tele: afib 100s-120s. NSVT x7b) Assessment/Plan EKG: afib, no ischemic changes. Echo 06/2015: afib, nl LV/RV, mild-mod MR/TR, hi LAP, mild ao root dil MIBI 2013: no ST changes, probable breast artifact vs. AW ischemia. Nl EF PFTs 2013: no obstr, mild restr, mild decr DLCO CT chest: severe coronary calcifications. consolidation LEANDRO/LLL. opacities RUL/ RLL ? atx vs scar. no effusions. upper lobe interolbular septal thickening = ? interstitial edema. dilated main PA c/w pulm HTN. CXR 04/12 reviewed: LEANDRO and RLL infiltrates incr'd vs prior (RLL new); dense L base (obscured). small R effusion. diffuse interstitial > alveolar markings in background, no vascular redistributation a/p: acute hypoxic resp failure, PNA, sepsis: - lactate elevated initially, with multilobar PNA, fever - recently euvolemic off of bumex as outpatient (bumex held when here 2017 with progressive myeloma bony pain and poor po, with dehydration and hypercalcemia) - multifactorial chronic sob (copd, diast chf, and ? related to very large hiatal hernia). - nonspecific findings of possible interstitial edema on CT (vs chronic interstitial changes--comparison to prior CT not described on report). in absence of pleural effusions or signs of volume on exam, will not agggressively diurese (hold diuretics) - 04/05 had episode of resp distress overnight, reportedly sx's improved s/p lasix 40 iv - lasix 40 po qd started at that time, rep status has been stable. ? of aspiration PNA here. - abx, suppl O2, supportive care per hospitalist/pulm/ID - 04/13: Na 156. CXR suspicious for pneumonic infiltrates without convincing CHF picture (background of interstitial dz sec to copd likely). appears euvolemic, not taking po. stop lasix. free water per hospitalist, consider renal consult hypernatremia: - as above lethargy: -suspect sec to doses of ativan given yest for agitation. -? hypernatremia contributing. -per pmd (d/w'd dr tineo) Afib - controlled at "lenient rate control" targest on home regimen: DILTIAZEM (60 AM , 60 LUNCH, 30 PM) AND LOW DOSE TOPROL (25). (has h/o bradycardia and hypotension of ? etiology--stable long time on reduced med regimen). - 04/04: currently HRs running 120-140 often, in setting of acute PNA this is likely physiologic. - diltiazem incr'd to 60 TID, toprol 25 incr'd to 50 qd - HR controlled reasonably since (agitation at times likely driving HR as well)- -remains on high side often 110s-120s. - same meds, cont tele - cont coumadin dosing prn for goal INR 2-3 - 04/13 INR meredith to 8.0, given vit K--coming down, monitor lab trend - pain control per pmd. mild-mod MR - functional, likely related to volume status - echo 06/2015 stable anemia/multiple myeloma - 2/2 multiple myeloma. heme following. - complicated by vertebral fractures. currently on home hospice per cards office notes. - counts stable around 7-8, monitor on coumadin Emphysema - per pmd +/- pulm
[2017-04-13] MEDS: ACETYLCYSTEINE 20% 200MG/ML 4 ML VIAL *FOR ORAL / INH USE ONLY NEB SCH ×4 (09:47→20:00)
[2017-04-13] MEDS: DOCUSATE SODIUM 100 MG CAPSULE (FP) PO SCH ×2 (09:58→22:55)
[2017-04-13] MEDS: POLYETHYLENE GLYCOL 3350 119 GM BTL PO SCH ×2 (09:58→22:55)
[2017-04-13] MEDS: CEFEPIME HCL/D5W 1 GM/50 ML BAG IVPB SCH ×2 (09:58→22:55)
[2017-04-13] MEDS: METOPROLOL SUCCINATE 50 MG TAB.SR.24H (FP) PO SCH (09:59)
[2017-04-13] MEDS: CHOLECALCIFEROL (VITAMIN D3) 1,000 UNIT TABLET (FP) PO SCH (09:59)
[2017-04-13] MEDS: guaiFENesin 600 MG TABLET.ER (FP) PO SCH ×2 (09:59→22:55)
[2017-04-13] MEDS: ACETAMINOPHEN 325 MG TABLET (FP) PO PRN (09:59)
[2017-04-13] MEDS: OSELTAMIVIR PHOSPHATE 30 MG CAPSULE PO SCH ×2 (10:10→22:55)
[2017-04-13] MEDS: PROPYLTHIOURACIL 50 MG TABLET (UD) PO SCH (10:36)
--- NOTE | 2017-04-13 11:45 | PN ---
Progress Note, Physician Chief Complaint: PULMONARY AGITATED ,PULLING OFF O2 MASK - Current Medication List Current Medications: Active Medications Acetaminophen (Tylenol -) 650 mg PO Q12H PRN PRN Reason: PAIN Last Admin: 04/13/17 09:59 Dose: 650 mg Acetaminophen (Ofirmev Injection -) 850 mg IVPB Q8H PRN Last Admin: 04/12/17 10:00 Dose: 850 mg Acetylcysteine (Mucomyst 20 Oral / Inh Use Only*) 600 mg NEB RQID [facility] Last Admin: 04/13/17 09:47 Dose: Not Given Atorvastatin Calcium (Lipitor -) 20 mg PO HS [facility] Last Admin: 04/12/17 22:27 Dose: 20 mg Cholecalciferol (Vitamin D3 -) 2,000 unit PO DAILY [facility] Last Admin: 04/13/17 09:59 Dose: 2,000 unit Dextrose (D50w (Vial) -) 25 gm IVPUSH PRN PRN PRN Reason: hypoglycemia <75 Diltiazem HCl (Cardizem -) 60 mg PO TID [facility] Last Admin: 04/13/17 06:07 Dose: 60 mg Docusate Sodium (Colace -) 100 mg PO BID [facility] Last Admin: 04/13/17 09:58 Dose: 100 mg Guaifenesin (Mucinex -) 600 mg PO BID [facility] Last Admin: 04/13/17 09:59 Dose: 600 mg Cefepime HCl (Maxipime 1 Gm Premix Ivpb) 1 gm in 50 mls @ 100 mls/hr IVPB BID [facility] Last Admin: 04/13/17 09:58 Dose: 100 mls/hr Vancomycin HCl 1,000 mg/ (Dextrose) 250 mls @ 166.667 mls/hr IVPB Q24H [facility] Last Admin: 04/12/17 22:43 Dose: 166.667 mls/hr Insulin Aspart (Novolog Vial Sliding Scale -) 1 vial SQ ACHS [facility] PRN Reason: Protocol Last Admin: 04/13/17 06:07 Dose: Not Given Lorazepam (Ativan Injection -) 0.25 mg IM TID PRN PRN Reason: ANXIETY Last Admin: 04/12/17 20:14 Dose: 0.25 mg Metoprolol Succinate (Toprol Xl -) 50 mg PO DAILY [facility] Last Admin: 04/13/17 09:59 Dose: 50 mg Montelukast Sodium (Singulair -) 10 mg PO HS [facility] Last Admin: 04/12/17 22:28 Dose: 10 mg Oseltamivir Phosphate (Tamiflu -) 30 mg PO BID [facility] Stop: 04/14/17 10:01 Last Admin: 04/12/17 22:26 Dose: 30 mg Polyethylene Glycol (Miralax (For Daily Use) -) 17 gm PO BID [facility] Last Admin: 04/13/17 09:58 Dose: Not Given Propylthiouracil (Ptu -) 50 mg PO DAILY [facility] Last Admin: 04/12/17 09:20 Dose: 50 mg - Objective Vital Signs: Vital Signs Temperature 97.4 F L 04/13/17 06:00 Pulse Rate 108 H 04/13/17 06:00 Respiratory Rate 18 04/13/17 06:00 Blood Pressure 140/74 04/13/17 06:00 O2 Sat by Pulse Oximetry (%) 96 04/13/17 07:49 Constitutional: Yes: Thin, Other (AGITATED) Eyes: Yes: WNL HENT: Yes: WNL Neck: Yes: WNL Cardiovascular: Yes: Tachycardia, Pulse Irregular, S1, S2 Respiratory: Yes: Diminished (POOR INSPIRATORY EFFORT, UNCOOPERATIVE), Other Gastrointestinal: Yes: Normal Bowel Sounds, Soft Extremities: Yes: WNL Edema: No Labs: CBC, BMP 04/13/17 05:13 04/13/17 05:13 INR, PTT INR 6.04 (0.82-1.09) H* 04/13/17 06:15 Problem List - Problems (1) COPD (chronic obstructive pulmonary disease) Code(s): J44.9 - CHRONIC OBSTRUCTIVE PULMONARY DISEASE, UNSPECIFIED (2) Chronic a-fib Code(s): I48.2 - CHRONIC ATRIAL FIBRILLATION (3) Pneumonia Code(s): J18.9 - PNEUMONIA, UNSPECIFIED ORGANISM (4) SOB (shortness of breath) Code(s): R06.02 - SHORTNESS OF BREATH (5) Meningioma Code(s): D32.9 - BENIGN NEOPLASM OF MENINGES, UNSPECIFIED (6) Multiple myeloma Code(s): C90.00 - MULTIPLE MYELOMA NOT HAVING ACHIEVED REMISSION Qualifiers: Multiple myeloma remission status: not in remission Qualified Code(s): C90.00 - Multiple myeloma not having achieved remission (7) Acute respiratory failure with hypoxia and hypercapnia Code(s): J96.01 - ACUTE RESPIRATORY FAILURE WITH HYPOXIA; J96.02 - ACUTE RESPIRATORY FAILURE WITH HYPERCAPNIA (8) Congestive heart failure Code(s): I50.9 - HEART FAILURE, UNSPECIFIED Qualifiers: Congestive heart failure type: diastolic Congestive heart failure chronicity: chronic Qualified Code(s): I50.32 - Chronic diastolic (congestive ) heart failure (9) Diabetes mellitus Code(s): E11.9 - TYPE 2 DIABETES MELLITUS WITHOUT COMPLICATIONS Assessment/Plan IMP ACUTE HYPOXEMIC/HYPERCAPNEIC RESPIRATORY FAILURE PNEUMONIA WORSENING INFLUENZA A CHF AFIB COPD DM MM ANEMIA HYPERNATREMIA PLAN O2 NIPPV NEEDED INHALED BRONCHODILATORS RATE CONTROL PER CARDIOLOGY F/U CHEST X-RAYS F/U ABGS MONITOR H+H REPLETE HUANG THOMPSON Problem List - Problems (1) COPD (chronic obstructive pulmonary disease) Code(s): J44.9 - CHRONIC OBSTRUCTIVE PULMONARY DISEASE, UNSPECIFIED (2) Chronic a-fib Code(s): I48.2 - CHRONIC ATRIAL FIBRILLATION (3) Pneumonia Code(s): J18.9 - PNEUMONIA, UNSPECIFIED ORGANISM (4) SOB (shortness of breath) Code(s): R06.02 - SHORTNESS OF BREATH (5) Meningioma Code(s): D32.9 - BENIGN NEOPLASM OF MENINGES, UNSPECIFIED (6) Multiple myeloma Code(s): C90.00 - MULTIPLE MYELOMA NOT HAVING ACHIEVED REMISSION Qualifiers: Multiple myeloma remission status: not in remission Qualified Code(s): C90.00 - Multiple myeloma not having achieved remission (7) Acute respiratory failure with hypoxia and hypercapnia Code(s): J96.01 - ACUTE RESPIRATORY FAILURE WITH HYPOXIA; J96.02 - ACUTE RESPIRATORY FAILURE WITH HYPERCAPNIA (8) Congestive heart failure Code(s): I50.9 - HEART FAILURE, UNSPECIFIED Qualifiers: Congestive heart failure type: diastolic Congestive heart failure chronicity: chronic Qualified Code(s): I50.32 - Chronic diastolic (congestive ) heart failure (9) Diabetes mellitus Code(s): E11.9 - TYPE 2 DIABETES MELLITUS WITHOUT COMPLICATIONS
--- NOTE | 2017-04-13 12:31 | PN ---
Progress Note (short form) - Note Progress Note: remains febrile-intermittent NRB mask alert but confused Vital Signs Period Temp Pulse Resp BP Sys/Nieto Pulse Ox Last 24 Hr 97.4 F-100.6 F 108-122 18-30 122-146/64-86 92-100 cor-rrr lungs decreased bs at bases abd soft,nt suprapubic discomfort on exam ext no edema CBC, BMP 04/13/17 05:13 04/13/17 05:13 influenza a antigen positive Microbiology 04/05/17 14:30 Blood - Peripheral Venous Blood Culture - Final NO GROWTH AFTER 5 DAYS INCUBATION 04/05/17 14:25 Blood - Peripheral Venous Blood Culture - Final NO GROWTH AFTER 5 DAYS INCUBATION 04/09/17 17:04 Urine - Urine - Catheterized Legionella Antigen - Final 04/09/17 17:04 Urine - Urine - Catheterized Streptococcus pneumoniae Antigen (M - Final 04/09/17 17:00 Nasopharyngeal Swab Influenza Types A,B Antigen (MICHAEL) - Final 04/09/17 17:00 Nasopharyngeal Swab - Final legionella antigen negative cxray pending a/p intermittent fevers- ?aspiration, ?UTI fevers /hyopoxia- influenza A- continue tamiflu day#4 continue cefepime day #4, switch to linezolid to treat both lung and urine VRE UTI- add linezolid contact isolation compression fractures (lumbar and thoracic) multiple myeloma advanced directives being discussed afib- management per cardiology per cardiology overall prognosis is poor
[2017-04-13 12:58] LABS: MAGNESIUM 1.8 mg/dL (1.8-2.4)
[2017-04-13] MEDS: POTASSIUM CHLORIDE 10 MEQ in SODIUM CHLORIDE 100 ML IVPB SCH ×3 (13:39→15:58)
[2017-04-13] MEDS: LINEZOLID 600 MG PREMIX BAG 600 MG/300 ML BAG IVPB SCH (13:39)
[2017-04-13] MEDS ORDERED: DEXTROSE 5%-WATER - 1,000 ML IV SCH (15:45)
--- NOTE | 2017-04-13 15:45 | PN ---
Progress Note, Physician Chief Complaint: Unable to obtain, patient altered. - Current Medication List Current Medications: Active Medications Acetaminophen (Tylenol -) 650 mg PO Q12H PRN PRN Reason: PAIN Last Admin: 04/13/17 09:59 Dose: 650 mg Acetaminophen (Ofirmev Injection -) 850 mg IVPB Q8H PRN Last Admin: 04/12/17 10:00 Dose: 850 mg Acetylcysteine (Mucomyst 20 Oral / Inh Use Only*) 600 mg NEB RQID [facility] Last Admin: 04/13/17 12:18 Dose: Not Given Atorvastatin Calcium (Lipitor -) 20 mg PO HS [facility] Last Admin: 04/12/17 22:27 Dose: 20 mg Cholecalciferol (Vitamin D3 -) 2,000 unit PO DAILY [facility] Last Admin: 04/13/17 09:59 Dose: 2,000 unit Dextrose (D50w (Vial) -) 25 gm IVPUSH PRN PRN PRN Reason: hypoglycemia <75 Diltiazem HCl (Cardizem -) 60 mg PO TID [facility] Last Admin: 04/13/17 13:39 Dose: 60 mg Docusate Sodium (Colace -) 100 mg PO BID [facility] Last Admin: 04/13/17 09:58 Dose: 100 mg Guaifenesin (Mucinex -) 600 mg PO BID [facility] Last Admin: 04/13/17 09:59 Dose: 600 mg Cefepime HCl (Maxipime 1 Gm Premix Ivpb) 1 gm in 50 mls @ 100 mls/hr IVPB BID [facility] Last Admin: 04/13/17 09:58 Dose: 100 mls/hr Potassium Chloride 10 meq/ (Sodium Chloride) 105 mls @ 100 mls/hr IVPB Q60M [facility] Stop: 04/13/17 15:59 Last Admin: 04/13/17 13:39 Dose: 100 mls/hr Linezolid (Zyvox 600 Mg Premix Bag (Restricted To Id) -) 600 mg in 300 mls @ 300 mls/hr IVPB BID@0200,1400 [facility] PRN Reason: Protocol Last Admin: 04/13/17 13:39 Dose: 300 mls/hr Insulin Aspart (Novolog Vial Sliding Scale -) 1 vial SQ ACHS [facility] PRN Reason: Protocol Last Admin: 04/13/17 13:37 Dose: 2 units Lorazepam (Ativan Injection -) 0.25 mg IM TID PRN PRN Reason: ANXIETY Last Admin: 04/12/17 20:14 Dose: 0.25 mg Metoprolol Succinate (Toprol Xl -) 50 mg PO DAILY [facility] Last Admin: 04/13/17 09:59 Dose: 50 mg Montelukast Sodium (Singulair -) 10 mg PO HS [facility] Last Admin: 04/12/17 22:28 Dose: 10 mg Oseltamivir Phosphate (Tamiflu -) 30 mg PO BID [facility] Stop: 04/14/17 10:01 Last Admin: 04/13/17 10:10 Dose: 30 mg Polyethylene Glycol (Miralax (For Daily Use) -) 17 gm PO BID [facility] Last Admin: 04/13/17 09:58 Dose: Not Given Propylthiouracil (Ptu -) 50 mg PO DAILY [facility] Last Admin: 04/13/17 10:36 Dose: 50 mg - Objective Vital Signs: Vital Signs Temperature 36.4 C L 04/13/17 14:00 Pulse Rate 108 H 04/13/17 14:00 Respiratory Rate 20 04/13/17 14:00 Blood Pressure 95/50 04/13/17 14:00 O2 Sat by Pulse Oximetry (%) 96 04/13/17 07:49 Constitutional: Yes: Mild Distress Cardiovascular: Yes: Tachycardia, Pulse Irregular. No: Gallop, Murmur, Rub Respiratory: Yes: Regular, Cough, On Nasal O2, Rales, Rhonchi. No: CTA Bilaterally, Wheezes Gastrointestinal: Yes: Normal Bowel Sounds, Soft. No: Distention, Tenderness Extremities: Yes: WNL Edema: No Labs: CBC, BMP 04/13/17 05:13 04/13/17 05:13 INR, PTT INR 6.04 (0.82-1.09) H* 04/13/17 06:15 Problem List - Problems (1) Acute respiratory failure with hypoxia Code(s): J96.01 - ACUTE RESPIRATORY FAILURE WITH HYPOXIA (2) Influenza A Code(s): J10.1 - FLU DUE TO OTH IDENT INFLUENZA VIRUS W OTH RESP MANIFEST (3) Pneumonia Code(s): J18.9 - PNEUMONIA, UNSPECIFIED ORGANISM (4) Vertebral fracture Code(s): [id number] - Qualifiers: Encounter type: initial encounter Fracture of vertebra location: lumbar Lumbar vertebra fracture level: unspecified lumbar vertebra Fracture type: closed Fracture morphology: other fracture Qualified Code(s): S32.008A - Other fracture of unspecified lumbar vertebra, initial encounter for closed fracture (5) Atrial fibrillation Code(s): I48.91 - UNSPECIFIED ATRIAL FIBRILLATION Qualifiers: Atrial fibrillation type: chronic Qualified Code(s): I48.2 - Chronic atrial fibrillation (6) Atypical chest pain Code(s): R07.89 - OTHER CHEST PAIN (7) COPD (chronic obstructive pulmonary disease) Code(s): J44.9 - CHRONIC OBSTRUCTIVE PULMONARY DISEASE, UNSPECIFIED (8) Congestive heart failure Code(s): I50.9 - HEART FAILURE, UNSPECIFIED Qualifiers: Congestive heart failure type: diastolic Congestive heart failure chronicity: chronic Qualified Code(s): I50.32 - Chronic diastolic (congestive ) heart failure (9) Diabetes mellitus Code(s): E11.9 - TYPE 2 DIABETES MELLITUS WITHOUT COMPLICATIONS (10) Hyperlipidemia Code(s): E78.5 - HYPERLIPIDEMIA, UNSPECIFIED (11) Multiple myeloma Code(s): C90.00 - MULTIPLE MYELOMA NOT HAVING ACHIEVED REMISSION Qualifiers: Multiple myeloma remission status: not in remission Qualified Code(s): C90.00 - Multiple myeloma not having achieved remission (12) Metabolic encephalopathy Code(s): G93.41 - METABOLIC ENCEPHALOPATHY (13) Diverticulitis Code(s): K57.92 - DVTRCLI OF INTEST, PART UNSP, W/O PERF OR ABSCESS W/O BLEED Assessment/Plan (1) Acute hypoxic respiratory failure -pulmonary following -wean oxygen as tolerated -continue tamiflu (2) Influenza pneumonia with recurring sepsis -case d/w ID and appreciate assistance -continue tamiflu -continue cefepime -also concern for aspiration -family made aware to not insist upon feeding the patient (3) Sepsis, recurrent Assessment/Plan: as above -ID following and on tamiflu Code(s): J18.9 - PNEUMONIA, UNSPECIFIED ORGANISM (4) Vertebral fracture Assessment/Plan: -continue IV tylenol Code(s): [id number] - Qualifiers: Encounter type: initial encounter Fracture of vertebra location: lumbar Lumbar vertebra fracture level: unspecified lumbar vertebra Fracture type: closed Fracture morphology: other fracture Qualified Code(s): S32.008A - Other fracture of unspecified lumbar vertebra, initial encounter for closed fracture (5) Atrial fibrillation with supratherapeutic INR Assessment/Plan: -coumadin on hold -s/p Vitamin K -monitor INR -cardiology following -continue toprol xl and diltiazem Code(s): I48.91 - UNSPECIFIED ATRIAL FIBRILLATION Qualifiers: Atrial fibrillation type: chronic Qualified Code(s): I48.2 - Chronic atrial fibrillation (6) COPD (chronic obstructive pulmonary disease) Assessment/Plan: -with exacerbation from influenza -mucomyst Code(s): J44.9 - CHRONIC OBSTRUCTIVE PULMONARY DISEASE, UNSPECIFIED (7) Congestive heart failure Assessment/Plan: -cardiology following and appreciate assistance -not in exacerbation -will begin free water at low rate Code(s): I50.9 - HEART FAILURE, UNSPECIFIED Qualifiers: Congestive heart failure type: diastolic Congestive heart failure chronicity: chronic Qualified Code(s): I50.32 - Chronic diastolic (congestive ) heart failure (8) Diabetes mellitus Assessment/Plan: -expect elevation secondary to D5W Code(s): E11.9 - TYPE 2 DIABETES MELLITUS WITHOUT COMPLICATIONS (9) Hyperlipidemia Assessment/Plan: -hold lipitor currently Code(s): E78.5 - HYPERLIPIDEMIA, UNSPECIFIED (10) Multiple myeloma Assessment/Plan: -oncology consulted and following Code(s): C90.00 - MULTIPLE MYELOMA NOT HAVING ACHIEVED REMISSION Qualifiers: Multiple myeloma remission status: not in remission Qualified Code(s): C90.00 - Multiple myeloma not having achieved remission (11) Metabolic encephalopathy -worsening (1) Diverticulitis Assessment/Plan -resolved Code(s): K57.92 - DVTRCLI OF INTEST, PART UNSP, W/O PERF OR ABSCESS W/O BLEED (12) Hypernatremia -patient with 2.7L water deficit -begin D5W at 42ml/hr -monitor Dispo -patient with very poor prognosis -appreciate palliative care assistance
[2017-04-13] MEDS: LORazepam 2 MG/ML SDV VIAL IM PRN (17:02)
[2017-04-13] MEDS: ATORVASTATIN CA 20 MG TABLET (FP) PO SCH (22:55)
[2017-04-13] MEDS: MONTELUKAST NA 10 MG TABLET PO SCH (22:55)
[2017-04-14] MEDS: LINEZOLID 600 MG PREMIX BAG 600 MG/300 ML BAG IVPB SCH ×2 (02:40→14:20)
[2017-04-14] MEDS: dilTIAZem HCL 60 MG TABLET (FP) PO SCH ×3 (06:55→21:36)
[2017-04-14] MEDS: INSULIN SLIDING SCALE (NOVOLOG) 1 VIAL SQ SCH ×5 (07:01→21:51)
[2017-04-14 07:56] LABS: BASO % 0.1 % (0-2.0); EOS % 0.1 % (0-4.5); HEMATOCRIT 31.1 % (32.4-45.2); HEMOGLOBIN 9.2 GM/dL (10.7-15.3); MCHC 29.5 g/dl (32.0-36.0); MEAN CELL VOLUME 91.5 fl (80-96); MEAN PLT VOLUME 9.9 fl (7.5-11.1); MONO % 4.5 % (3.8-10.2); NEUT % 88.3 % (42.8-82.8); PLATELET COUNT 335 K/MM3 (134-434); RDW 20.5 % (11.6-15.6); WHITE BLOOD COUNT 8.2 K/mm3 (4.0-10.0)
[2017-04-14 08:40] LABS: INR 3.6 (0.82-1.09); PROTHROMBIN TIME (PATIENT) 40.7 SEC (9.98-11.88)
[2017-04-14 08:58] LABS: ANION GAP 6 (8-16); BLOOD UREA NITROGEN 35 mg/dL (7-18); CALCIUM 9.1 mg/dL (8.5-10.1); CHLORIDE 115 mmol/L (98-107); CO2 34 mmol/L (21-32); CREATININE 1.1 mg/dL (0.55-1.02); GLUCOSE,RANDOM 129 mg/dL (74-106); MAGNESIUM 1.9 mg/dL (1.8-2.4); PHOSPHOROUS 1.6 mg/dL (2.5-4.9); POTASSIUM 3.3 mmol/L (3.5-5.1); SODIUM 155 mmol/L (136-145)
[2017-04-14] MEDS: ACETYLCYSTEINE 20% 200MG/ML 4 ML VIAL *FOR ORAL / INH USE ONLY NEB SCH ×4 (10:14→21:15)
--- NOTE | 2017-04-14 11:30 | PN ---
Progress Note, Physician History of Present Illness: PULMONARY SEDATED ON BIPAP - Current Medication List Current Medications: Active Medications Acetaminophen (Tylenol -) 650 mg PO Q12H PRN PRN Reason: PAIN Last Admin: 04/13/17 09:59 Dose: 650 mg Acetaminophen (Ofirmev Injection -) 850 mg IVPB Q8H PRN Last Admin: 04/12/17 10:00 Dose: 850 mg Acetylcysteine (Mucomyst 20 Oral / Inh Use Only*) 600 mg NEB RQID [facility] Last Admin: 04/14/17 10:14 Dose: Not Given Atorvastatin Calcium (Lipitor -) 20 mg PO HS [facility] Last Admin: 04/13/17 22:55 Dose: 20 mg Cholecalciferol (Vitamin D3 -) 2,000 unit PO DAILY [facility] Last Admin: 04/13/17 09:59 Dose: 2,000 unit Dextrose (D50w (Vial) -) 25 gm IVPUSH PRN PRN PRN Reason: hypoglycemia <75 Diltiazem HCl (Cardizem -) 60 mg PO TID [facility] Last Admin: 04/14/17 06:55 Dose: 60 mg Docusate Sodium (Colace -) 100 mg PO BID [facility] Last Admin: 04/13/17 22:55 Dose: 100 mg Guaifenesin (Mucinex -) 600 mg PO BID [facility] Last Admin: 04/13/17 22:55 Dose: 600 mg Cefepime HCl (Maxipime 1 Gm Premix Ivpb) 1 gm in 50 mls @ 100 mls/hr IVPB BID [facility] Last Admin: 04/13/17 22:55 Dose: 100 mls/hr Linezolid (Zyvox 600 Mg Premix Bag (Restricted To Id) -) 600 mg in 300 mls @ 300 mls/hr IVPB BID@0200,1400 [facility] PRN Reason: Protocol Last Admin: 04/14/17 02:40 Dose: 300 mls/hr Dextrose (D5w -) 1,000 mls @ 42 mls/hr IV ASDIR [facility] Last Admin: 04/13/17 19:30 Dose: 42 mls/hr Insulin Aspart (Novolog Vial Sliding Scale -) 1 vial SQ ACHS [facility] PRN Reason: Protocol Last Admin: 04/14/17 10:31 Dose: Not Given Lorazepam (Ativan Injection -) 0.25 mg IM TID PRN PRN Reason: ANXIETY Last Admin: 04/13/17 17:02 Dose: 0.25 mg Metoprolol Succinate (Toprol Xl -) 50 mg PO DAILY [facility] Last Admin: 04/13/17 09:59 Dose: 50 mg Montelukast Sodium (Singulair -) 10 mg PO HS [facility] Last Admin: 04/13/17 22:55 Dose: 10 mg Polyethylene Glycol (Miralax (For Daily Use) -) 17 gm PO BID [facility] Last Admin: 04/13/17 22:55 Dose: Not Given Propylthiouracil (Ptu -) 50 mg PO DAILY [facility] Last Admin: 04/13/17 10:36 Dose: 50 mg - Objective Vital Signs: Vital Signs Temperature 97.9 F 04/14/17 10:00 Pulse Rate 117 H 04/14/17 10:16 Respiratory Rate 26 H 04/14/17 10:00 Blood Pressure 127/75 04/14/17 10:00 O2 Sat by Pulse Oximetry (%) 100 04/14/17 10:16 Constitutional: Yes: Thin, Other (SEDATED) Eyes: Yes: WNL HENT: Yes: WNL Neck: Yes: WNL Cardiovascular: Yes: Pulse Irregular, S1, S2 Respiratory: Yes: Diminished Gastrointestinal: Yes: Normal Bowel Sounds, Soft Extremities: Yes: WNL Edema: No Labs: CBC, BMP 04/14/17 07:30 04/14/17 07:30 INR, PTT INR 3.60 (0.82-1.09) H D 04/14/17 07:30 Problem List - Problems (1) COPD (chronic obstructive pulmonary disease) Code(s): J44.9 - CHRONIC OBSTRUCTIVE PULMONARY DISEASE, UNSPECIFIED (2) Chronic a-fib Code(s): I48.2 - CHRONIC ATRIAL FIBRILLATION (3) Pneumonia Code(s): J18.9 - PNEUMONIA, UNSPECIFIED ORGANISM (4) SOB (shortness of breath) Code(s): R06.02 - SHORTNESS OF BREATH (5) Meningioma Code(s): D32.9 - BENIGN NEOPLASM OF MENINGES, UNSPECIFIED (6) Multiple myeloma Code(s): C90.00 - MULTIPLE MYELOMA NOT HAVING ACHIEVED REMISSION Qualifiers: Multiple myeloma remission status: not in remission Qualified Code(s): C90.00 - Multiple myeloma not having achieved remission (7) Acute respiratory failure with hypoxia and hypercapnia Code(s): J96.01 - ACUTE RESPIRATORY FAILURE WITH HYPOXIA; J96.02 - ACUTE RESPIRATORY FAILURE WITH HYPERCAPNIA (8) Congestive heart failure Code(s): I50.9 - HEART FAILURE, UNSPECIFIED Qualifiers: Congestive heart failure type: diastolic Congestive heart failure chronicity: chronic Qualified Code(s): I50.32 - Chronic diastolic (congestive ) heart failure (9) Diabetes mellitus Code(s): E11.9 - TYPE 2 DIABETES MELLITUS WITHOUT COMPLICATIONS Assessment/Plan IMP ACUTE HYPOXEMIC/HYPERCAPNEIC RESPIRATORY FAILURE PNEUMONIA WORSENING INFLUENZA A CHF AFIB COPD DM MM ANEMIA HYPERNATREMIA PLAN O2 NIPPV NEEDED INHALED BRONCHODILATORS RATE CONTROL F/U CHEST X-RAYS IVF F/U ABGS MONITOR H+H MONITOR HUANG THOMPSON Problem List - Problems (1) COPD (chronic obstructive pulmonary disease) Code(s): J44.9 - CHRONIC OBSTRUCTIVE PULMONARY DISEASE, UNSPECIFIED (2) Chronic a-fib Code(s): I48.2 - CHRONIC ATRIAL FIBRILLATION (3) Pneumonia Code(s): J18.9 - PNEUMONIA, UNSPECIFIED ORGANISM (4) SOB (shortness of breath) Code(s): R06.02 - SHORTNESS OF BREATH (5) Meningioma Code(s): D32.9 - BENIGN NEOPLASM OF MENINGES, UNSPECIFIED (6) Multiple myeloma Code(s): C90.00 - MULTIPLE MYELOMA NOT HAVING ACHIEVED REMISSION Qualifiers: Multiple myeloma remission status: not in remission Qualified Code(s): C90.00 - Multiple myeloma not having achieved remission (7) Acute respiratory failure with hypoxia and hypercapnia Code(s): J96.01 - ACUTE RESPIRATORY FAILURE WITH HYPOXIA; J96.02 - ACUTE RESPIRATORY FAILURE WITH HYPERCAPNIA (8) Congestive heart failure Code(s): I50.9 - HEART FAILURE, UNSPECIFIED Qualifiers: Congestive heart failure type: diastolic Congestive heart failure chronicity: chronic Qualified Code(s): I50.32 - Chronic diastolic (congestive ) heart failure (9) Diabetes mellitus Code(s): E11.9 - TYPE 2 DIABETES MELLITUS WITHOUT COMPLICATIONS
[2017-04-14] MEDS: guaiFENesin 600 MG TABLET.ER (FP) PO SCH ×2 (11:35→21:36)
[2017-04-14] MEDS: CEFEPIME HCL/D5W 1 GM/50 ML BAG IVPB SCH ×2 (11:35→21:39)
[2017-04-14] MEDS: PROPYLTHIOURACIL 50 MG TABLET (UD) PO SCH (11:35)
[2017-04-14] MEDS: POLYETHYLENE GLYCOL 3350 119 GM BTL PO SCH ×2 (11:35→21:40)
[2017-04-14] MEDS: DOCUSATE SODIUM 100 MG CAPSULE (FP) PO SCH ×2 (11:35→21:36)
[2017-04-14] MEDS: METOPROLOL SUCCINATE 50 MG TAB.SR.24H (FP) PO SCH (11:36)
[2017-04-14] MEDS: CHOLECALCIFEROL (VITAMIN D3) 1,000 UNIT TABLET (FP) PO SCH (11:36)
[2017-04-14] MEDS: OSELTAMIVIR PHOSPHATE 30 MG CAPSULE PO SCH (11:36)
--- NOTE | 2017-04-14 12:05 | PN ---
Progress Note, Physician Chief Complaint: Unable to obtain, patient altered and lethargic. - Current Medication List Current Medications: Active Medications Acetaminophen (Tylenol -) 650 mg PO Q12H PRN PRN Reason: PAIN Last Admin: 04/13/17 09:59 Dose: 650 mg Acetaminophen (Ofirmev Injection -) 850 mg IVPB Q8H PRN Last Admin: 04/12/17 10:00 Dose: 850 mg Acetylcysteine (Mucomyst 20 Oral / Inh Use Only*) 600 mg NEB RQID [facility] Last Admin: 04/14/17 10:14 Dose: Not Given Atorvastatin Calcium (Lipitor -) 20 mg PO HS [facility] Last Admin: 04/13/17 22:55 Dose: 20 mg Cholecalciferol (Vitamin D3 -) 2,000 unit PO DAILY [facility] Last Admin: 04/14/17 11:36 Dose: Not Given Dextrose (D50w (Vial) -) 25 gm IVPUSH PRN PRN PRN Reason: hypoglycemia <75 Diltiazem HCl (Cardizem -) 60 mg PO TID [facility] Last Admin: 04/14/17 06:55 Dose: 60 mg Docusate Sodium (Colace -) 100 mg PO BID [facility] Last Admin: 04/14/17 11:35 Dose: Not Given Guaifenesin (Mucinex -) 600 mg PO BID [facility] Last Admin: 04/14/17 11:35 Dose: Not Given Cefepime HCl (Maxipime 1 Gm Premix Ivpb) 1 gm in 50 mls @ 100 mls/hr IVPB BID [facility] Last Admin: 04/14/17 11:35 Dose: 100 mls/hr Linezolid (Zyvox 600 Mg Premix Bag (Restricted To Id) -) 600 mg in 300 mls @ 300 mls/hr IVPB BID@0200,1400 [facility] PRN Reason: Protocol Last Admin: 04/14/17 02:40 Dose: 300 mls/hr Dextrose (D5w -) 1,000 mls @ 42 mls/hr IV ASDIR [facility] Last Admin: 04/13/17 19:30 Dose: 42 mls/hr Insulin Aspart (Novolog Vial Sliding Scale -) 1 vial SQ ACHS [facility] PRN Reason: Protocol Last Admin: 04/14/17 10:31 Dose: Not Given Lorazepam (Ativan Injection -) 0.25 mg IM TID PRN PRN Reason: ANXIETY Last Admin: 04/13/17 17:02 Dose: 0.25 mg Metoprolol Succinate (Toprol Xl -) 50 mg PO DAILY [facility] Last Admin: 04/14/17 11:36 Dose: Not Given Montelukast Sodium (Singulair -) 10 mg PO HS [facility] Last Admin: 04/13/17 22:55 Dose: 10 mg Polyethylene Glycol (Miralax (For Daily Use) -) 17 gm PO BID [facility] Last Admin: 04/14/17 11:35 Dose: Not Given Propylthiouracil (Ptu -) 50 mg PO DAILY [facility] Last Admin: 04/14/17 11:35 Dose: Not Given - Objective Vital Signs: Vital Signs Temperature 36.6 C 04/14/17 10:00 Pulse Rate 117 H 04/14/17 10:16 Respiratory Rate 26 H 04/14/17 10:00 Blood Pressure 127/75 04/14/17 10:00 O2 Sat by Pulse Oximetry (%) 100 04/14/17 10:16 Constitutional: Yes: Other (lethargic, moaning) Cardiovascular: Yes: Tachycardia, Pulse Irregular. No: Gallop, Murmur, Rub Respiratory: Yes: On BiPap, Rhonchi, Tachypnea, Wheezes. No: Rales Gastrointestinal: Yes: Normal Bowel Sounds, Soft. No: Distention, Tenderness Extremities: Yes: WNL Edema: No Labs: CBC, BMP 04/14/17 07:30 04/14/17 07:30 INR, PTT INR 3.60 (0.82-1.09) H D 04/14/17 07:30 Problem List - Problems (1) Acute respiratory failure with hypoxia Code(s): J96.01 - ACUTE RESPIRATORY FAILURE WITH HYPOXIA (2) Influenza A Code(s): J10.1 - FLU DUE TO OTH IDENT INFLUENZA VIRUS W OTH RESP MANIFEST (3) Pneumonia Code(s): J18.9 - PNEUMONIA, UNSPECIFIED ORGANISM (4) Vertebral fracture Code(s): [id number] - Qualifiers: Encounter type: initial encounter Fracture of vertebra location: lumbar Lumbar vertebra fracture level: unspecified lumbar vertebra Fracture type: closed Fracture morphology: other fracture Qualified Code(s): S32.008A - Other fracture of unspecified lumbar vertebra, initial encounter for closed fracture (5) Atrial fibrillation Code(s): I48.91 - UNSPECIFIED ATRIAL FIBRILLATION Qualifiers: Atrial fibrillation type: chronic Qualified Code(s): I48.2 - Chronic atrial fibrillation (6) Atypical chest pain Code(s): R07.89 - OTHER CHEST PAIN (7) COPD (chronic obstructive pulmonary disease) Code(s): J44.9 - CHRONIC OBSTRUCTIVE PULMONARY DISEASE, UNSPECIFIED (8) Congestive heart failure Code(s): I50.9 - HEART FAILURE, UNSPECIFIED Qualifiers: Congestive heart failure type: diastolic Congestive heart failure chronicity: chronic Qualified Code(s): I50.32 - Chronic diastolic (congestive ) heart failure (9) Diabetes mellitus Code(s): E11.9 - TYPE 2 DIABETES MELLITUS WITHOUT COMPLICATIONS (10) Hyperlipidemia Code(s): E78.5 - HYPERLIPIDEMIA, UNSPECIFIED (11) Multiple myeloma Code(s): C90.00 - MULTIPLE MYELOMA NOT HAVING ACHIEVED REMISSION Qualifiers: Multiple myeloma remission status: not in remission Qualified Code(s): C90.00 - Multiple myeloma not having achieved remission (12) Metabolic encephalopathy Code(s): G93.41 - METABOLIC ENCEPHALOPATHY (13) Diverticulitis Code(s): K57.92 - DVTRCLI OF INTEST, PART UNSP, W/O PERF OR ABSCESS W/O BLEED Assessment/Plan (1) Acute hypoxic respiratory failure -pulmonary following -worsening -now on bipap -case d/w Dr Trammell (2) Influenza pneumonia with recurring sepsis -finished full course of tamiflu -continue cefepime -also concern for aspiration -family made aware to not insist upon feeding the patient (3) Sepsis, recurrent Assessment/Plan: -also with VRE in urine -continue linezolid Code(s): J18.9 - PNEUMONIA, UNSPECIFIED ORGANISM (4) Vertebral fracture Assessment/Plan: -continue IV tylenol Code(s): [id number] - Qualifiers: Encounter type: initial encounter Fracture of vertebra location: lumbar Lumbar vertebra fracture level: unspecified lumbar vertebra Fracture type: closed Fracture morphology: other fracture Qualified Code(s): S32.008A - Other fracture of unspecified lumbar vertebra, initial encounter for closed fracture (5) Atrial fibrillation with supratherapeutic INR Assessment/Plan: -continue to hold coumadin -cardiology following -may need to change to IV rate control if not taking po Code(s): I48.91 - UNSPECIFIED ATRIAL FIBRILLATION Qualifiers: Atrial fibrillation type: chronic Qualified Code(s): I48.2 - Chronic atrial fibrillation (6) COPD (chronic obstructive pulmonary disease) Assessment/Plan: -with exacerbation from influenza -mucomyst Code(s): J44.9 - CHRONIC OBSTRUCTIVE PULMONARY DISEASE, UNSPECIFIED (7) Congestive heart failure Assessment/Plan: -cardiology following and appreciate assistance -not in exacerbation -monitor since receiving fluid Code(s): I50.9 - HEART FAILURE, UNSPECIFIED Qualifiers: Congestive heart failure type: diastolic Congestive heart failure chronicity: chronic Qualified Code(s): I50.32 - Chronic diastolic (congestive ) heart failure (8) Diabetes mellitus Assessment/Plan: -expect elevation secondary to D5W Code(s): E11.9 - TYPE 2 DIABETES MELLITUS WITHOUT COMPLICATIONS (9) Hyperlipidemia Assessment/Plan: -hold lipitor currently Code(s): E78.5 - HYPERLIPIDEMIA, UNSPECIFIED (10) Multiple myeloma Assessment/Plan: -oncology consulted and following Code(s): C90.00 - MULTIPLE MYELOMA NOT HAVING ACHIEVED REMISSION Qualifiers: Multiple myeloma remission status: not in remission Qualified Code(s): C90.00 - Multiple myeloma not having achieved remission (11) Metabolic encephalopathy -worsening (1) Diverticulitis Assessment/Plan -resolved Code(s): K57.92 - DVTRCLI OF INTEST, PART UNSP, W/O PERF OR ABSCESS W/O BLEED (12) Hypernatremia with hypokalemia -continue D5W, increase rate -add KCl Dispo -patient with very poor prognosis -appreciate palliative care assistance
--- NOTE | 2017-04-14 13:02 | PN ---
Progress Note (short form) - Note Progress Note: afebrile bipap confused Vital Signs Period Temp Pulse Resp BP Sys/Nieto Pulse Ox Last 24 Hr 97.2 F-98.8 F 102-117 17-26 95-133/50-82 97-100 cor-rrr lungs decreased bs at bases abd soft,nt ext no edema CBC, BMP 04/14/17 07:30 04/14/17 07:30 legionella antigen negative cxray congestion Microbiology 04/09/17 16:00 Blood - Peripheral Venous Blood Culture - Preliminary NO GROWTH OBTAINED AFTER 96 HOURS, INCUBATION TO CONTINUE FOR 1 DAYS. 04/09/17 16:00 Blood - Peripheral Venous Blood Culture - Preliminary NO GROWTH OBTAINED AFTER 96 HOURS, INCUBATION TO CONTINUE FOR 1 DAYS. 04/12/17 14:30 Blood - Peripheral Venous Blood Culture - Preliminary NO GROWTH OBTAINED AFTER 24 HOURS, INCUBATION TO CONTINUE FOR 4 DAYS. 04/12/17 14:30 Blood - Peripheral Venous Blood Culture - Preliminary NO GROWTH OBTAINED AFTER 24 HOURS, INCUBATION TO CONTINUE FOR 4 DAYS. a/p fevers resolved- ?aspiration, ?UTI fevers /hyopoxia- influenza A- continue tamiflu day#5 continue cefepime day #5, switch to linezolid to treat both lung and urine VRE UTI- add linezolid day#2 contact isolation compression fractures (lumbar and thoracic) multiple myeloma advanced directives being discussed afib- management per cardiology per cardiology overall prognosis is poor
--- NOTE | 2017-04-14 13:30 | PN ---
Progress Note (short form) - Note Progress Note: Chief Complaint: resp distress History of Present Illness: confused, agitated. trying to pull bipap mask off. appears uncomfortable, but cannot verbalize source of discomfort. ex cigs Current Medications Acetaminophen (Tylenol -) 650 mg PO Q12H PRN PRN Reason: PAIN Last Admin: 04/13/17 09:59 Dose: 650 mg Acetaminophen (Ofirmev Injection -) 850 mg IVPB Q8H PRN Last Admin: 04/12/17 10:00 Dose: 850 mg Acetylcysteine (Mucomyst 20 Oral / Inh Use Only*) 600 mg NEB RQID [facility] Last Admin: 04/14/17 12:16 Dose: Not Given Atorvastatin Calcium (Lipitor -) 20 mg PO HS [facility] Last Admin: 04/13/17 22:55 Dose: 20 mg Cholecalciferol (Vitamin D3 -) 2,000 unit PO DAILY [facility] Last Admin: 04/14/17 11:36 Dose: Not Given Dextrose (D50w (Vial) -) 25 gm IVPUSH PRN PRN PRN Reason: hypoglycemia <75 Diltiazem HCl (Cardizem -) 60 mg PO TID [facility] Last Admin: 04/14/17 06:55 Dose: 60 mg Docusate Sodium (Colace -) 100 mg PO BID [facility] Last Admin: 04/14/17 11:35 Dose: Not Given Guaifenesin (Mucinex -) 600 mg PO BID [facility] Last Admin: 04/14/17 11:35 Dose: Not Given Cefepime HCl (Maxipime 1 Gm Premix Ivpb) 1 gm in 50 mls @ 100 mls/hr IVPB BID [facility] Last Admin: 04/14/17 11:35 Dose: 100 mls/hr Linezolid (Zyvox 600 Mg Premix Bag (Restricted To Id) -) 600 mg in 300 mls @ 300 mls/hr IVPB BID@0200,1400 [facility] PRN Reason: Protocol Last Admin: 04/14/17 02:40 Dose: 300 mls/hr Potassium Chloride 20 meq/ (Dextrose) 1,010 mls @ 75 mls/hr IV Q13H [facility] Insulin Aspart (Novolog Vial Sliding Scale -) 1 vial SQ ACHS [facility] PRN Reason: Protocol Last Admin: 04/14/17 12:34 Dose: 4 units Lorazepam (Ativan Injection -) 0.25 mg IM TID PRN PRN Reason: ANXIETY Last Admin: 04/13/17 17:02 Dose: 0.25 mg Metoprolol Succinate (Toprol Xl -) 50 mg PO DAILY [facility] Last Admin: 04/14/17 11:36 Dose: Not Given Montelukast Sodium (Singulair -) 10 mg PO HS [facility] Last Admin: 04/13/17 22:55 Dose: 10 mg Polyethylene Glycol (Miralax (For Daily Use) -) 17 gm PO BID [facility] Last Admin: 04/14/17 11:35 Dose: Not Given Propylthiouracil (Ptu -) 50 mg PO DAILY [facility] Last Admin: 04/14/17 11:35 Dose: Not Given - Objective Vital Signs: Vital Signs - 24 hr 04/13/17 04/13/17 04/13/17 14:00 21:00 22:00 Temperature 97.5 F L 98.8 F Pulse Rate 108 H 102 H Respiratory 20 20 Rate Blood Pressure 95/50 133/72 O2 Sat by Pulse 97 Oximetry (%) 04/14/17 04/14/17 04/14/17 02:46 06:00 10:00 Temperature 97.2 F L 98.4 F 97.9 F Pulse Rate 117 H 116 H 103 H Respiratory 20 17 26 H Rate Blood Pressure 130/70 132/82 127/75 O2 Sat by Pulse Oximetry (%) 04/14/17 04/14/17 10:15 10:16 Temperature Pulse Rate 117 H Respiratory Rate Blood Pressure O2 Sat by Pulse 100 100 Oximetry (%) Intake & Output 04/12/17 04/13/17 04/14/17 04/15/17 07:59 07:59 07:59 07:59 Intake Total 100 520 554 Balance 100 520 554 Constitutional: Yes: agitated. bipap mask on. Eyes: No: Sclera Icterus HENT: No: Nasal Congestion Cardiovascular: Yes: Pulse Irregular, S1, S2, Other (PMI non diplaced). No: JVD , Gallop, Murmur Respiratory: Yes: + rales, poor effort. No: Accessory Muscle Use, Rales, Wheezes Gastrointestinal: Yes: Normal Bowel Sounds, Soft. No: Tenderness Musculoskeletal: Yes: Other (No kyphosis) Extremities: No: Cold Edema: No Integumentary: No: Jaundice Neurological: No: Alert, Seizure Psychiatric: No: Agitated Labs: CBC, BMP 04/14/17 07:30 04/14/17 07:30 Laboratory Tests 04/14/17 07:30 INR 3.60 H D - ....Imaging EKG: Other (tele: afib 90s-110s.) Assessment/Plan EKG: afib, no ischemic changes. Echo 06/2015: afib, nl LV/RV, mild-mod MR/TR, hi LAP, mild ao root dil MIBI 2012: no ST changes, probable breast artifact vs. AW ischemia. Nl EF PFTs 2013: no obstr, mild restr, mild decr DLCO CT chest: severe coronary calcifications. consolidation LEANDRO/LLL. opacities RUL/ RLL ? atx vs scar. no effusions. upper lobe interolbular septal thickening = ? interstitial edema. dilated main PA c/w pulm HTN. CXR 04/12 reviewed: LEANDRO and RLL infiltrates incr'd vs prior (RLL new); dense L base (obscured). small R effusion. diffuse interstitial > alveolar markings in background, no vascular redistributation a/p: acute hypoxic resp failure, PNA, sepsis: - lactate elevated initially, with multilobar PNA, fever - recently euvolemic off of bumex as outpatient (bumex held when here 2017 with progressive myeloma bony pain and poor po, with dehydration and hypercalcemia) - multifactorial chronic sob (copd, diast chf, and ? related to very large hiatal hernia). - nonspecific findings of possible interstitial edema on CT (vs chronic interstitial changes--comparison to prior CT not described on report). in absence of pleural effusions or signs of volume on exam, will not agggressively diurese (hold diuretics) - 04/05 had episode of resp distress overnight, reportedly sx's improved s/p lasix 40 iv - lasix 40 po qd started at that time, rep status has been stable. ? of aspiration PNA here. - abx, suppl O2, supportive care per hospitalist/pulm/ID - 04/13-04/14: + hypernatremia. CXR suspicious for pneumonic infiltrates without convincing CHF picture (background of interstitial dz sec to copd likely). appears euvolemic, not taking po. stopped lasix. free water per hospitalist, consider renal consult hypernatremia: - as above lethargy: -per pmd (d/w'd dr tineo) - + influenza A, vre uti and possible asp pna --> mgm't of infection per id/pmd Afib - controlled at "lenient rate control" targest on home regimen: DILTIAZEM (60 AM , 60 LUNCH, 30 PM) AND LOW DOSE TOPROL (25). (has h/o bradycardia and hypotension of ? etiology--stable long time on reduced med regimen). - 04/04: currently HRs running 120-140 often, in setting of acute PNA this is likely physiologic. - diltiazem incr'd to 60 TID, toprol 25 incr'd to 50 qd - HR controlled reasonably with elevations at times (agitation, infection and also intermittently missing doses of meds 2/2 lethargy) - same meds, cont tele - cont coumadin dosing prn for goal INR 2-3 - 04/13 INR meredith to 8.0, given vit K--coming down, monitor lab trend - pain control per pmd. VTach: -one run NSVT on monitor (7 beats) -normal LVEF, on BB -replete K (start with IV, given lethargic/obtunded mental status). -check Mag -cont tele mild-mod MR - functional, likely related to volume status - echo 06/2015 stable anemia/multiple myeloma - 2/2 multiple myeloma. heme following. - complicated by vertebral fractures. currently on home hospice per cards office notes. - counts stable around 7-8, monitor on coumadin Emphysema - per pmd +/- pulm
[2017-04-14] MEDS: DEXTROSE 5%-WATER - 1,000 ML with POTASSIUM CHLORIDE 20 MEQ IV SCH (14:20)
[2017-04-14] MEDS: POTASSIUM CHLORIDE 10 MEQ in SODIUM CHLORIDE 100 ML IVPB SCH ×3 (15:55→18:18)
[2017-04-14] MEDS ORDERED: PT OWN MED DRAWER 7, Y5N ONE (21:33)
[2017-04-14] MEDS: MONTELUKAST NA 10 MG TABLET PO SCH (21:37)
[2017-04-14] MEDS: ATORVASTATIN CA 20 MG TABLET (FP) PO SCH (21:37)
[2017-04-14] MEDS ORDERED: ALBUTEROL SO4 0.083% IH SOL 2.5 MG/3 ML VIAL.NEB. NEB ONE (21:49)
[2017-04-15] MEDS: LORazepam 2 MG/ML SDV VIAL IM PRN (01:35)
[2017-04-15] MEDS: LINEZOLID 600 MG PREMIX BAG 600 MG/300 ML BAG IVPB SCH ×2 (02:45→14:12)
[2017-04-15] MEDS: dilTIAZem HCL 60 MG TABLET (FP) PO SCH ×3 (05:48→22:27)
[2017-04-15] MEDS: INSULIN SLIDING SCALE (NOVOLOG) 1 VIAL SQ SCH ×4 (06:00→22:51)
[2017-04-15 07:51] LABS: BASO % 0.1 % (0-2.0); EOS % 0.3 % (0-4.5); HEMATOCRIT 28.7 % (32.4-45.2); HEMOGLOBIN 8.3 GM/dL (10.7-15.3); LYMPH % 7.2 % (8-40); MCHC 29.1 g/dl (32.0-36.0); MEAN CELL VOLUME 92.9 fl (80-96); MEAN PLT VOLUME 9.8 fl (7.5-11.1); MONO % 3.8 % (3.8-10.2); NEUT % 88.6 % (42.8-82.8); PLATELET COUNT 364 K/MM3 (134-434); RBC 3.09 M/mm3 (3.60-5.2); RDW 20.5 % (11.6-15.6); WHITE BLOOD COUNT 12.3 K/mm3 (4.0-10.0)
[2017-04-15] MEDS: DEXTROSE 5%-WATER - 1,000 ML with POTASSIUM CHLORIDE 20 MEQ IV SCH (08:00)
[2017-04-15] MEDS: ALBUTEROL SO4 0.083% IH SOL 2.5 MG/3 ML VIAL.NEB. NEB SCH ×4 (08:12→21:10)
[2017-04-15] MEDS: ACETYLCYSTEINE 20% 200MG/ML 4 ML VIAL *FOR ORAL / INH USE ONLY NEB SCH ×4 (08:12→21:10)
[2017-04-15 08:15] LABS: INR 2.81 (0.82-1.09); PROTHROMBIN TIME (PATIENT) 31.8 SEC (9.98-11.88)
[2017-04-15 09:25] LABS: ANION GAP 14 (8-16); BLOOD UREA NITROGEN 27 mg/dL (7-18); CALCIUM 8.4 mg/dL (8.5-10.1); CHLORIDE 114 mmol/L (98-107); CO2 26 mmol/L (21-32); GLUCOSE,RANDOM 190 mg/dL (74-106); MAGNESIUM 1.6 mg/dL (1.8-2.4); POTASSIUM 4.1 mmol/L (3.5-5.1); SODIUM 154 mmol/L (136-145)
[2017-04-15 09:27] LABS: CREATININE 1.2 mg/dL (0.55-1.02)
[2017-04-15] MEDS: CEFEPIME HCL/D5W 1 GM/50 ML BAG IVPB SCH ×2 (10:38→22:27)
[2017-04-15] MEDS: DOCUSATE SODIUM 100 MG CAPSULE (FP) PO SCH ×2 (10:39→22:31)
[2017-04-15] MEDS: POLYETHYLENE GLYCOL 3350 119 GM BTL PO SCH ×2 (10:54→22:28)
[2017-04-15] MEDS: guaiFENesin 600 MG TABLET.ER (FP) PO SCH ×2 (10:54→22:27)
[2017-04-15] MEDS: METOPROLOL SUCCINATE 50 MG TAB.SR.24H (FP) PO SCH (10:55)
[2017-04-15] MEDS: PROPYLTHIOURACIL 50 MG TABLET (UD) PO SCH (10:55)
[2017-04-15] MEDS: CHOLECALCIFEROL (VITAMIN D3) 1,000 UNIT TABLET (FP) PO SCH (11:08)
--- NOTE | 2017-04-15 11:11 | PN ---
Progress Note (short form) - Note Progress Note: s: lethargic, not answering questions o: Vital Signs Period Temp Pulse Resp BP Sys/Nieto Pulse Ox Last 24 Hr 97.6 F-98.2 F 118-125 18-36 124-143/70-103 96-100 NAD, calm JVD flat, neck supple irregularly irregular, nl rate nl s1, s2 2/6 murmur at sternal border and apex dullness at left base, nl eff + bs soft nt nd ext without edema no cyanosis or clubbing no jaundice, diaphoresis Current Medications Generic Name Dose Route Start Last Admin Trade Name Freq PRN Reason Stop Dose Admin Acetaminophen 650 mg 04/02/17 23:43 04/13/17 09:59 Tylenol - PO 650 mg Q12H PRN Administration PAIN Acetaminophen 850 mg 04/05/17 22:41 04/12/17 10:00 Ofirmev Injection - IVPB 850 mg Q8H PRN Administration Acetylcysteine 600 mg 04/12/17 16:21 04/15/17 08:12 Mucomyst 20 Oral / Inh Use Only* NEB 600 mg RQID BURKE Administration Albuterol Sulfate 1 amp 04/15/17 08:00 04/15/17 08:12 Ventolin 0.083% Nebulizer Soln - NEB 1 amp RQID BURKE Administration Atorvastatin Calcium 20 mg 04/03/17 22:00 04/14/17 21:37 Lipitor - PO 20 mg HS BURKE Administration Cholecalciferol 2,000 unit 04/03/17 10:00 04/14/17 11:36 Vitamin D3 - PO Not Given DAILY BURKE Dextrose 25 gm 04/10/17 16:25 D50w (Vial) - IVPUSH PRN PRN hypoglycemia <75 Diltiazem HCl 60 mg 04/04/17 15:45 04/15/17 05:48 Cardizem - PO 60 mg TID BURKE Administration Docusate Sodium 100 mg 04/03/17 10:00 04/14/17 21:36 Colace - PO 100 mg BID BURKE Administration Guaifenesin 600 mg 04/06/17 01:30 04/14/17 21:36 Mucinex - PO 600 mg BID BURKE Administration Cefepime HCl 1 gm in 50 mls @ 100 mls/hr 04/09/17 18:00 04/14/17 21:39 Maxipime 1 Gm Premix Ivpb IVPB 100 mls/hr BID BURKE Administration Linezolid 600 mg in 300 mls @ 300 mls/hr 04/13/17 13:30 04/15/17 02:45 Zyvox 600 Mg Premix Bag (Restricted To Id) - IVPB 300 mls/hr BID@0200,1400 BURKE Administration Protocol Potassium Chloride 20 meq/ 1,010 mls @ 75 mls/hr 04/14/17 12:07 04/14/17 14: 20 Dextrose IV 75 mls/hr Q13H BURKE Administration Insulin Aspart 1 vial 04/03/17 07:00 04/15/17 06:00 Novolog Vial Sliding Scale - SQ 6 units ACHS BURKE Administration Protocol Lorazepam 0.25 mg 04/12/17 12:06 04/15/17 01:35 Ativan Injection - IM 0.25 mg TID PRN Administration ANXIETY Metoprolol Succinate 50 mg 04/06/17 10:00 04/14/17 11:36 Toprol Xl - PO Not Given DAILY [facility] Metoprolol Tartrate 5 mg 04/15/17 11:07 Lopressor Injection - IVPUSH Q4H PRN TACHYCARDIA Montelukast Sodium 10 mg 04/03/17 22:00 04/14/17 21:37 Singulair - PO 10 mg HS BURKE Administration Polyethylene Glycol 17 gm 04/03/17 10:00 04/14/17 21:40 Miralax (For Daily Use) - PO 17 grams BID BURKE Administration Propylthiouracil 50 mg 04/03/17 10:00 04/14/17 11:35 Ptu - PO Not Given DAILY [facility] CBC, BMP 04/15/17 05:38 04/15/17 05:38 EKG: afib, no ischemic changes. Echo 06/2015: afib, nl LV/RV, mild-mod MR/TR, hi LAP, mild ao root dil MIBI 2012: no ST changes, probable breast artifact vs. AW ischemia. Nl EF PFTs 2013: no obstr, mild restr, mild decr DLCO CT chest: severe coronary calcifications. consolidation LEANDRO/LLL. opacities RUL/ RLL ? atx vs scar. no effusions. upper lobe interolbular septal thickening = ? interstitial edema. dilated main PA c/w pulm HTN. CXR 04/12 reviewed: LEANDRO and RLL infiltrates incr'd vs prior (RLL new); dense L base (obscured). small R effusion. diffuse interstitial > alveolar markings in background, no vascular redistributation tele: afib, rvr 120s at times a/p: acute hypoxic resp failure, PNA, sepsis: - lactate elevated initially, with multilobar PNA, fever - recently euvolemic off of bumex as outpatient (bumex held when here 2017 with progressive myeloma bony pain and poor po, with dehydration and hypercalcemia) - multifactorial chronic sob (copd, diast chf, and ? related to very large hiatal hernia). - nonspecific findings of possible interstitial edema on CT (vs chronic interstitial changes--comparison to prior CT not described on report). in absence of pleural effusions or signs of volume on exam, will not agggressively diurese (hold diuretics) - 04/05 had episode of resp distress overnight, reportedly sx's improved s/p lasix 40 iv - lasix 40 po qd started at that time, rep status has been stable. ? of aspiration PNA here. - abx, suppl O2, supportive care per hospitalist/pulm/ID - 04/13-04/15: + hypernatremia. CXR suspicious for pneumonic infiltrates without convincing CHF picture (background of interstitial dz sec to copd likely). appears euvolemic, not taking po. stopped lasix. lethargy: - + influenza A, vre uti and possible asp pna --> mgm't of infection per id/pmd Afib - continue bb and dilt if able to take po - prn iv lopressor for hr control if unable to take po meds - cont coumadin dosing prn for goal INR 2-3 VTach: -one run NSVT on monitor (7 beats) -normal LVEF, on BB -cont tele mild-mod MR - functional, likely related to volume status - echo 06/2015 stable anemia/multiple myeloma - 2/2 multiple myeloma. heme following. - complicated by vertebral fractures. currently on home hospice per cards office notes. - counts stable around 7-8, monitor on coumadin
--- NOTE | 2017-04-15 12:56 | PN ---
Progress Note, Physician Chief Complaint: Unable to obtain, patient altered and lethargic. - Current Medication List Current Medications: Active Medications Acetaminophen (Tylenol -) 650 mg PO Q12H PRN PRN Reason: PAIN Last Admin: 04/13/17 09:59 Dose: 650 mg Acetaminophen (Ofirmev Injection -) 850 mg IVPB Q8H PRN Last Admin: 04/12/17 10:00 Dose: 850 mg Acetylcysteine (Mucomyst 20 Oral / Inh Use Only*) 600 mg NEB RQID [facility] Last Admin: 04/15/17 11:10 Dose: 600 mg Albuterol Sulfate (Ventolin 0.083% Nebulizer Soln -) 1 amp NEB RQID [facility] Last Admin: 04/15/17 11:10 Dose: 1 amp Atorvastatin Calcium (Lipitor -) 20 mg PO HS [facility] Last Admin: 04/14/17 21:37 Dose: 20 mg Cholecalciferol (Vitamin D3 -) 2,000 unit PO DAILY [facility] Last Admin: 04/15/17 11:08 Dose: Not Given Dextrose (D50w (Vial) -) 25 gm IVPUSH PRN PRN PRN Reason: hypoglycemia <75 Diltiazem HCl (Cardizem -) 60 mg PO TID [facility] Last Admin: 04/15/17 05:48 Dose: 60 mg Docusate Sodium (Colace -) 100 mg PO BID [facility] Last Admin: 04/15/17 10:39 Dose: Not Given Guaifenesin (Mucinex -) 600 mg PO BID [facility] Last Admin: 04/15/17 10:54 Dose: Not Given Cefepime HCl (Maxipime 1 Gm Premix Ivpb) 1 gm in 50 mls @ 100 mls/hr IVPB BID [facility] Last Admin: 04/15/17 10:38 Dose: 100 mls/hr Linezolid (Zyvox 600 Mg Premix Bag (Restricted To Id) -) 600 mg in 300 mls @ 300 mls/hr IVPB BID@0200,1400 [facility] PRN Reason: Protocol Last Admin: 04/15/17 02:45 Dose: 300 mls/hr Potassium Chloride 20 meq/ (Dextrose) 1,010 mls @ 75 mls/hr IV Q13H [facility] Last Admin: 04/15/17 08:00 Dose: Not Given Insulin Aspart (Novolog Vial Sliding Scale -) 1 vial SQ ACHS [facility] PRN Reason: Protocol Last Admin: 04/15/17 11:08 Dose: Not Given Lorazepam (Ativan Injection -) 0.25 mg IM TID PRN PRN Reason: ANXIETY Last Admin: 04/15/17 01:35 Dose: 0.25 mg Metoprolol Succinate (Toprol Xl -) 50 mg PO DAILY [facility] Last Admin: 04/15/17 10:55 Dose: Not Given Metoprolol Tartrate (Lopressor Injection -) 5 mg IVPUSH Q4H PRN PRN Reason: TACHYCARDIA Montelukast Sodium (Singulair -) 10 mg PO HS [facility] Last Admin: 04/14/17 21:37 Dose: 10 mg Polyethylene Glycol (Miralax (For Daily Use) -) 17 gm PO BID [facility] Last Admin: 04/15/17 10:54 Dose: Not Given Propylthiouracil (Ptu -) 50 mg PO DAILY [facility] Last Admin: 04/15/17 10:55 Dose: Not Given - Objective Vital Signs: Vital Signs Temperature 36.4 C 04/15/17 02:24 Pulse Rate 118 H 04/15/17 08:30 Respiratory Rate 36 H 04/15/17 08:30 Blood Pressure 124/70 04/15/17 08:30 O2 Sat by Pulse Oximetry (%) 96 04/14/17 21:00 Constitutional: Yes: Moderate Distress Cardiovascular: Yes: Tachycardia, Pulse Irregular. No: Gallop, Murmur, Rub Respiratory: Yes: On BiPap, Rhonchi, Tachypnea, Wheezes. No: Regular, CTA Bilaterally, Rales Gastrointestinal: Yes: Normal Bowel Sounds, Soft. No: Distention, Tenderness Extremities: Yes: WNL Edema: No Labs: CBC, BMP 04/15/17 05:38 04/15/17 05:38 INR, PTT INR 2.81 (0.82-1.09) H 04/15/17 05:38 Problem List - Problems (1) Acute respiratory failure with hypoxia Code(s): J96.01 - ACUTE RESPIRATORY FAILURE WITH HYPOXIA (2) Influenza A Code(s): J10.1 - FLU DUE TO OTH IDENT INFLUENZA VIRUS W OTH RESP MANIFEST (3) Pneumonia Code(s): J18.9 - PNEUMONIA, UNSPECIFIED ORGANISM (4) Vertebral fracture Code(s): XLH2450 - Qualifiers: Encounter type: initial encounter Fracture of vertebra location: lumbar Lumbar vertebra fracture level: unspecified lumbar vertebra Fracture type: closed Fracture morphology: other fracture Qualified Code(s): S32.008A - Other fracture of unspecified lumbar vertebra, initial encounter for closed fracture (5) Atrial fibrillation Code(s): I48.91 - UNSPECIFIED ATRIAL FIBRILLATION Qualifiers: Atrial fibrillation type: chronic Qualified Code(s): I48.2 - Chronic atrial fibrillation (6) Atypical chest pain Code(s): R07.89 - OTHER CHEST PAIN (7) COPD (chronic obstructive pulmonary disease) Code(s): J44.9 - CHRONIC OBSTRUCTIVE PULMONARY DISEASE, UNSPECIFIED (8) Congestive heart failure Code(s): I50.9 - HEART FAILURE, UNSPECIFIED Qualifiers: Congestive heart failure type: diastolic Congestive heart failure chronicity: chronic Qualified Code(s): I50.32 - Chronic diastolic (congestive ) heart failure (9) Diabetes mellitus Code(s): E11.9 - TYPE 2 DIABETES MELLITUS WITHOUT COMPLICATIONS (10) Hyperlipidemia Code(s): E78.5 - HYPERLIPIDEMIA, UNSPECIFIED (11) Multiple myeloma Code(s): C90.00 - MULTIPLE MYELOMA NOT HAVING ACHIEVED REMISSION Qualifiers: Multiple myeloma remission status: not in remission Qualified Code(s): C90.00 - Multiple myeloma not having achieved remission (12) Metabolic encephalopathy Code(s): G93.41 - METABOLIC ENCEPHALOPATHY (13) Diverticulitis Code(s): K57.92 - DVTRCLI OF INTEST, PART UNSP, W/O PERF OR ABSCESS W/O BLEED Assessment/Plan (1) Acute hypoxic respiratory failure -pulmonary following -worsening -now on bipap -pulmonary following -case d/w sons at bedside, attempting to clarify intubation status -oldest son Mehrdad says he thinks his mother would not want to be intubated but needs to discuss with family (2) Influenza pneumonia with recurring sepsis -finished full course of tamiflu -continue cefepime -also concern for aspiration -family made aware to not insist upon feeding the patient (3) Sepsis, recurrent Assessment/Plan: -also with VRE in urine -continue linezolid Code(s): J18.9 - PNEUMONIA, UNSPECIFIED ORGANISM (4) Vertebral fracture Assessment/Plan: -continue IV tylenol Code(s): [id number] - Qualifiers: Encounter type: initial encounter Fracture of vertebra location: lumbar Lumbar vertebra fracture level: unspecified lumbar vertebra Fracture type: closed Fracture morphology: other fracture Qualified Code(s): S32.008A - Other fracture of unspecified lumbar vertebra, initial encounter for closed fracture (5) Atrial fibrillation with supratherapeutic INR Assessment/Plan: -INR therapeutic -patient currently not able to take po -monitor Code(s): I48.91 - UNSPECIFIED ATRIAL FIBRILLATION Qualifiers: Atrial fibrillation type: chronic Qualified Code(s): I48.2 - Chronic atrial fibrillation (6) COPD (chronic obstructive pulmonary disease) Assessment/Plan: -with exacerbation from influenza -mucomyst Code(s): J44.9 - CHRONIC OBSTRUCTIVE PULMONARY DISEASE, UNSPECIFIED (7) Congestive heart failure Assessment/Plan: -cardiology following and appreciate assistance -not in exacerbation -monitor since receiving fluid Code(s): I50.9 - HEART FAILURE, UNSPECIFIED Qualifiers: Congestive heart failure type: diastolic Congestive heart failure chronicity: chronic Qualified Code(s): I50.32 - Chronic diastolic (congestive ) heart failure (8) Diabetes mellitus Assessment/Plan: -patient with decreased po intake Code(s): E11.9 - TYPE 2 DIABETES MELLITUS WITHOUT COMPLICATIONS (9) Hyperlipidemia Assessment/Plan: -hold lipitor currently Code(s): E78.5 - HYPERLIPIDEMIA, UNSPECIFIED (10) Multiple myeloma Assessment/Plan: -oncology consulted and following Code(s): C90.00 - MULTIPLE MYELOMA NOT HAVING ACHIEVED REMISSION Qualifiers: Multiple myeloma remission status: not in remission Qualified Code(s): C90.00 - Multiple myeloma not having achieved remission (11) Metabolic encephalopathy -worsening (1) Diverticulitis Assessment/Plan -resolved Code(s): K57.92 - DVTRCLI OF INTEST, PART UNSP, W/O PERF OR ABSCESS W/O BLEED (12) Hypernatremia with hypokalemia -nephrology consulted and case discussed -will evaluate, topic of NGT broached -clarification of code status needed -patient is high risk for aspiration and pulling on NGT -will d/w family about risks vs benefit Dispo -patient with very poor prognosis -appreciate palliative care assistance
--- NOTE | 2017-04-15 13:08 | PN ---
Progress Note, OUTSOLE SKIVER - Note Progress Note: Recent flu. Confused/Agitated. Diet order :dys minced and nectar with thin ensure enlive. PO intake on hold as she desaturates once mask is removed. Selected Entries 04/14/17 04/14/17 04/14/17 02:46 06:00 10:00 Breakfast Supper Temperature 97.2 F L 98.4 F 97.9 F 04/14/17 04/14/17 04/14/17 12:35 14:00 18:00 Breakfast 0 Supper Temperature 98.1 F 97.7 F 04/14/17 04/14/17 04/15/17 22:00 22:59 02:24 Breakfast Supper 0 Temperature 98.2 F 97.6 F
--- NOTE | 2017-04-15 13:30 | CONSULT ---
Consult Consult Specialty:: nephrology Referred by:: Dr. Simpson Reason for Consultation:: Hypernatremia CHEL - History of Present Illness Chief Complaint: Hypernatremia History of Present Illness: The patient is an 86 year old female with past medical history of multiple myeloma, Afib, CHF, and diabetes who presented to the ED initially with complaints of cough, SOB, chest pain, and abdominal pain. Over the past week her sodium level has been progressively increasing. She was started on D5W with minimal improvement in her sodium. Patient has been treated for influenza pneumonia during this hospitalization. Patient now with VRE UTI. Patient is currently on BiPAp and lethargic. Per nursing staff patient has not been able to eat for the past 2 days due to appetite. she also desaturates off bipap and can not be put on a mask to eat. PAST MEDICAL HISTORY: CHF, MM, Afib, HTN, HLD, COPD, back pain, DM, Brain tumor PAST SURGICAL HISTORY: cataract - History Source History Provided By: Medical Record Limitations to Obtaining History: Physical Impairment - Past Medical History Cardio/Vascular: Yes: AFIB, CHF, HTN, Hyperlipdemia Pulmonary: Yes: COPD Renal/: Yes: UTI (recent Hx of ESBL UTI) ...: No Heme/Onc: Yes: Cancer (brain tumor), Other (Multiple Myeloma ) Endocrine: Yes: Diabetes Mellitus - Past Surgical History Past Surgical History: Yes: Joint Replacement - Alcohol/Substance Use Hx Alcohol Use: No History of Substance Use: reports: None - Smoking History Smoking history: Never smoked Have you smoked in the past 12 months: No Aproximately how many cigarettes per day: 0 If you are a former smoker, when did you quit?: 1989 - Social History ADL: Family Assistance Occupation: Retired History of Recent Travel: No Home Medications - Allergies Allergies/Adverse Reactions: Allergies Allergy/AdvReac Type Severity Reaction Status Date / Time Iodinated Contrast- Oral and Allergy Verified 03/29/17 14:36 IV Dye [IV Dye, Iodine Containing Contrast ] Sulfa (Sulfonamide Allergy Verified 03/29/17 14:36 Antibiotics) - Home Medications Home Medications: Ambulatory Orders Atorvastatin Ca [Lipitor] 20 mg PO HS 08/14/16 Diltiazem [Cardizem -] 60 mg PO BID 08/14/16 Ergocalciferol (Vitamin D2) [Vitamin D2] 2,000 unit PO DAILY 08/14/16 Metformin HCl [Metformin HCl ER] 500 mg PO BID 08/14/16 Metoprolol Tartrate [Lopressor -] 25 mg PO DAILY 08/14/16 Montelukast Na [Singulair -] 10 mg PO HS 08/14/16 Pregabalin [Lyrica -] 50 mg PO BID 08/14/16 Propylthiouracil 50 mg PO DAILY 08/14/16 Albuterol 0.083% Nebulizer Juani [Ventolin 0.083% Nebulizer Soln -] 1 amp NEB Q6H PRN #30 amp 08/26/16 Ipratropium 0.02% Nebulizer [Atrovent 0.02% Nebulizer -] 1 amp NEB Q6H PRN #30 amp 08/26/16 Acetaminophen [Tylenol] 650 mg PO BID PRN 11/01/16 Lorazepam 0.25 mg PO BID 11/01/16 Potassium Chloride [K-Dur -] 20 meq PO BID #60 tab.ec 11/03/16 Warfarin Na [Coumadin -] 3 mg PO DAILY@1800 11/10/16 Docusate Sodium [Colace -] 100 mg PO BID #60 cap 11/14/16 Polyethylene Glycol 3350 [Miralax 119 gm Btl -] 17 gm PO BID #1 bottle 11/14/16 Oxycodone HCl 5 mg PO PRN 03/31/17 Family Disease History - Family Disease History Family History: Unable to Obtain Family Disease History: CA: Father, Mother, Sister, Other: Son (2 healthy), Daughter (4 healthy) Review of Systems Unable to obtain ROS, reason: Lethargic Physical Exam Vital Signs: Vital Signs Temperature 97.6 F 04/15/17 02:24 Pulse Rate 118 H 04/15/17 08:30 Respiratory Rate 36 H 04/15/17 08:30 Blood Pressure 124/70 04/15/17 08:30 O2 Sat by Pulse Oximetry (%) 96 04/14/17 21:00 Constitutional: Yes: No Distress HENT: Yes: Atraumatic Neck: Yes: Supple Cardiovascular: Yes: Pulse Irregular Respiratory: Yes: Rales (coarse) Gastrointestinal: Yes: Soft Edema: No Neurological: Yes: Lethargy Labs: CBC, BMP 04/15/17 05:38 04/15/17 05:38 Imaging - Results Chest X-ray: Report Reviewed, Image Reviewed, Other Assessment/Plan 86F with multiple medical problems presents to the hospital with shortness of breath now currently with acute hypoxic respiratory failure, CHEL, and hypernatremia. Problem List: Hypernatremia CHEL Multiple myeloma Acute hypoxic respiratory failure Brain Tumor CHF DM COPD HLD Anemia A fib Influenza Pneumonia VRE UTI Plan: Stop D5W with potassium @ 75ml/hr start D5W @ 100ml/hr without potassium Current free water deficit about 2 liters Get CXR to make sure patient is not fluid overloaded continue BiPAP for respiratory support-desaturates off BiPAP Continue Antibiotics per ID trend renal function trend sodium/BMP If becomes fluid overloaded may need to get NG tube and enterally replace free water Case discussed with attending Dr. Rolle
[2017-04-15] MEDS ORDERED: DEXTROSE 5%-WATER - 1,000 ML IV SCH (13:45)
--- NOTE | 2017-04-15 14:44 | PN ---
Progress Note, Physician History of Present Illness: Chart reviewed - Current Medication List Current Medications: Active Medications Acetaminophen (Tylenol -) 650 mg PO Q12H PRN PRN Reason: PAIN Last Admin: 04/13/17 09:59 Dose: 650 mg Acetaminophen (Ofirmev Injection -) 850 mg IVPB Q8H PRN Last Admin: 04/12/17 10:00 Dose: 850 mg Acetylcysteine (Mucomyst 20 Oral / Inh Use Only*) 600 mg NEB RQID [facility] Last Admin: 04/15/17 11:10 Dose: 600 mg Albuterol Sulfate (Ventolin 0.083% Nebulizer Soln -) 1 amp NEB RQID [facility] Last Admin: 04/15/17 11:10 Dose: 1 amp Atorvastatin Calcium (Lipitor -) 20 mg PO HS [facility] Last Admin: 04/14/17 21:37 Dose: 20 mg Cholecalciferol (Vitamin D3 -) 2,000 unit PO DAILY [facility] Last Admin: 04/15/17 11:08 Dose: Not Given Dextrose (D50w (Vial) -) 25 gm IVPUSH PRN PRN PRN Reason: hypoglycemia <75 Diltiazem HCl (Cardizem -) 60 mg PO TID [facility] Last Admin: 04/15/17 14:01 Dose: Not Given Docusate Sodium (Colace -) 100 mg PO BID [facility] Last Admin: 04/15/17 10:39 Dose: Not Given Guaifenesin (Mucinex -) 600 mg PO BID [facility] Last Admin: 04/15/17 10:54 Dose: Not Given Cefepime HCl (Maxipime 1 Gm Premix Ivpb) 1 gm in 50 mls @ 100 mls/hr IVPB BID [facility] Last Admin: 04/15/17 10:38 Dose: 100 mls/hr Linezolid (Zyvox 600 Mg Premix Bag (Restricted To Id) -) 600 mg in 300 mls @ 300 mls/hr IVPB BID@0200,1400 [facility] PRN Reason: Protocol Last Admin: 04/15/17 14:12 Dose: 300 mls/hr Dextrose (D5w -) 1,000 mls @ 100 mls/hr IV .Q10H [facility] Last Admin: 04/15/17 14:12 Dose: 100 mls/hr Insulin Aspart (Novolog Vial Sliding Scale -) 1 vial SQ ACHS [facility] PRN Reason: Protocol Last Admin: 04/15/17 11:08 Dose: Not Given Lorazepam (Ativan Injection -) 0.25 mg IM TID PRN PRN Reason: ANXIETY Last Admin: 04/15/17 01:35 Dose: 0.25 mg Metoprolol Succinate (Toprol Xl -) 50 mg PO DAILY [facility] Last Admin: 04/15/17 10:55 Dose: Not Given Metoprolol Tartrate (Lopressor Injection -) 5 mg IVPUSH Q4H PRN PRN Reason: TACHYCARDIA Montelukast Sodium (Singulair -) 10 mg PO HS [facility] Last Admin: 04/14/17 21:37 Dose: 10 mg Polyethylene Glycol (Miralax (For Daily Use) -) 17 gm PO BID [facility] Last Admin: 04/15/17 10:54 Dose: Not Given Propylthiouracil (Ptu -) 50 mg PO DAILY [facility] Last Admin: 04/15/17 10:55 Dose: Not Given - Objective Vital Signs: Vital Signs Temperature 97.6 F 04/15/17 02:24 Pulse Rate 118 H 04/15/17 08:30 Respiratory Rate 36 H 04/15/17 08:30 Blood Pressure 124/70 04/15/17 08:30 O2 Sat by Pulse Oximetry (%) 96 04/14/17 21:00 Constitutional: Yes: Moderate Distress Eyes: Yes: Conjunctiva Clear HENT: Yes: Normocephalic Neck: Yes: Trachea Midline Cardiovascular: Yes: Tachycardia, Pulse Irregular, S1, S2 Respiratory: Yes: Rales (scattered bilaterally) Gastrointestinal: Yes: Soft Edema: No Neurological: Yes: Pre-Existing Deficit Labs: CBC, BMP 04/15/17 05:38 04/15/17 05:38 INR, PTT INR 2.81 (0.82-1.09) H 04/15/17 05:38 - ....Imaging Chest X-ray: Report Reviewed, Image Reviewed EKG: Report Reviewed, Image Reviewed Problem List - Problems (1) Acute respiratory failure with hypoxia Code(s): J96.01 - ACUTE RESPIRATORY FAILURE WITH HYPOXIA (2) COPD (chronic obstructive pulmonary disease) Code(s): J44.9 - CHRONIC OBSTRUCTIVE PULMONARY DISEASE, UNSPECIFIED (3) Chronic a-fib Code(s): I48.2 - CHRONIC ATRIAL FIBRILLATION (4) Influenza A Code(s): J10.1 - FLU DUE TO OTH IDENT INFLUENZA VIRUS W OTH RESP MANIFEST (5) Metabolic encephalopathy Code(s): G93.41 - METABOLIC ENCEPHALOPATHY (6) Pneumonia Code(s): J18.9 - PNEUMONIA, UNSPECIFIED ORGANISM (7) Anemia Code(s): D64.9 - ANEMIA, UNSPECIFIED Qualifiers: Anemia type: unspecified type Qualified Code(s): D64.9 - Anemia, unspecified (8) Diabetes mellitus Code(s): E11.9 - TYPE 2 DIABETES MELLITUS WITHOUT COMPLICATIONS Assessment/Plan IMP ACUTE HYPOXEMIC/HYPERCAPNEIC RESPIRATORY FAILURE PNEUMONIA INFLUENZA A SWAB + (1-18) CHF AFIB COPD DM MM ANEMIA HYPERNATREMIA PLAN O2 NIPPV NEEDED INHALED BRONCHODILATORS RATE CONTROL F/U CHEST X-RAYS IVF F/U ABGS MONITOR H+H MONITOR HUANG PEÑA MD
[2017-04-15] MEDS: METOPROLOL TARTRATE 5 MG/5 ML VIAL IVPUSH PRN ×2 (16:23→22:59)
[2017-04-15] MEDS ORDERED: FUROSEMIDE 40 MG/4 ML INJECTABLE VIAL IVPUSH ONE (18:05)
--- NOTE | 2017-04-15 18:05 | PN ---
Teaching Attending Note Name of Resident: Rafy Owens (Nephrology) ATTENDING PHYSICIAN STATEMENT I saw and evaluated the patient. I reviewed the resident's note and discussed the case with the resident. I agree with the resident's findings and plan as documented. Nephrology Called to evaluate pt for hypernatremia. Pt currently on bipap and unable to give history. Pt known to me from previous admissions. She was started on d5w for hypernatremia and poor po intake. pmhx chf dm htn allergies iodinated contrast and sulfa ros unable to obtain family hx non contrib Current Medications Generic Name Dose Route Start Last Admin Trade Name Freq PRN Reason Stop Dose Admin Acetaminophen 650 mg 04/02/17 23:43 04/13/17 09:59 Tylenol - PO 650 mg Q12H PRN Administration PAIN Acetaminophen 850 mg 04/05/17 22:41 04/12/17 10:00 Ofirmev Injection - IVPB 850 mg Q8H PRN Administration Acetylcysteine 600 mg 04/12/17 16:21 04/15/17 15:43 Mucomyst 20 Oral / Inh Use Only* NEB 600 mg RQID [facility] Administration Albuterol Sulfate 1 amp 04/15/17 08:00 04/15/17 15:43 Ventolin 0.083% Nebulizer Soln - NEB 1 amp RQID [facility] Administration Atorvastatin Calcium 20 mg 04/03/17 22:00 04/14/17 21:37 Lipitor - PO 20 mg HS [facility] Administration Cholecalciferol 2,000 unit 04/03/17 10:00 04/15/17 11:08 Vitamin D3 - PO Not Given DAILY [facility] Dextrose 25 gm 04/10/17 16:25 D50w (Vial) - IVPUSH PRN PRN hypoglycemia <75 Diltiazem HCl 60 mg 04/04/17 15:45 04/15/17 14:01 Cardizem - PO Not Given TID [facility] Docusate Sodium 100 mg 04/03/17 10:00 04/15/17 10:39 Colace - PO Not Given BID [facility] Guaifenesin 600 mg 04/06/17 01:30 04/15/17 10:54 Mucinex - PO Not Given BID [facility] Cefepime HCl 1 gm in 50 mls @ 100 mls/hr 04/09/17 18:00 04/15/17 10:38 Maxipime 1 Gm Premix Ivpb IVPB 100 mls/hr BID [facility] Administration Linezolid 600 mg in 300 mls @ 300 mls/hr 04/13/17 13:30 04/15/17 14:12 Zyvox 600 Mg Premix Bag (Restricted To Id) - IVPB 300 mls/hr BID@0200,1400 [facility] Administration Protocol Dextrose 1,000 mls @ 100 mls/hr 04/15/17 13:45 04/15/17 14:12 D5w - IV 100 mls/hr .Q10H [facility] Administration Insulin Aspart 1 vial 04/03/17 07:00 04/15/17 17:24 Novolog Vial Sliding Scale - SQ 2 units ACHS [facility] Administration Protocol Lorazepam 0.25 mg 04/12/17 12:06 04/15/17 01:35 Ativan Injection - IM 0.25 mg TID PRN Administration ANXIETY Metoprolol Succinate 50 mg 04/06/17 10:00 04/15/17 10:55 Toprol Xl - PO Not Given DAILY [facility] Metoprolol Tartrate 5 mg 04/15/17 11:07 04/15/17 16:23 Lopressor Injection - IVPUSH 5 mg Q4H PRN Administration TACHYCARDIA Montelukast Sodium 10 mg 04/03/17 22:00 04/14/17 21:37 Singulair - PO 10 mg HS [facility] Administration Polyethylene Glycol 17 gm 04/03/17 10:00 04/15/17 10:54 Miralax (For Daily Use) - PO Not Given BID [facility] Propylthiouracil 50 mg 04/03/17 10:00 04/15/17 10:55 Ptu - PO Not Given DAILY [facility] Last Vital Signs Temp Pulse Resp BP Pulse Ox 98.5 F 132 H 32 H 144/98 96 04/15/17 14:00 04/15/17 16:23 04/15/17 14:00 04/15/17 16:23 04/14/17 21:00 Laboratory Tests 04/14/17 04/15/17 04/15/17 07:30 05:38 05:38 WBC 12.3 H D Hgb 8.3 L Sodium 155 H 154 H Potassium 3.3 L Creatinine 1.1 H 1.2 H Calcium 8.4 L cardio s1s2 pulm rhonchi, on bipap Gi soft ext neg edema neuro lethargic Impression 1. acute resp failur requiring intubation 2. CHF 3. hx meningioma 4. DM 5. HTN 6. hx myeloma 7. anemia 8. hypernatremia Plan - cxr reviewed - can stop fluids - will give dose of lasix - repeat labs in am - family meeting tomorrow to discuss NG tube and feeding - if they agree to an ng tube can start free water Dr Rolle
[2017-04-15] MEDS ORDERED: PT OWN MED DRAWER 7, Y5N ONE (22:21)
[2017-04-15] MEDS: MONTELUKAST NA 10 MG TABLET PO SCH (22:27)
[2017-04-15] MEDS: ATORVASTATIN CA 20 MG TABLET (FP) PO SCH (22:27)
[2017-04-15] MEDS: ACETAMINOPHEN 325 MG TABLET (FP) PO PRN (22:29)
[2017-04-16] MEDS: LINEZOLID 600 MG PREMIX BAG 600 MG/300 ML BAG IVPB SCH ×2 (02:30→14:59)
[2017-04-16] MEDS: dilTIAZem HCL 60 MG TABLET (FP) PO SCH ×3 (06:24→23:42)
[2017-04-16] MEDS: INSULIN SLIDING SCALE (NOVOLOG) 1 VIAL SQ SCH ×4 (06:27→21:44)
[2017-04-16] MEDS: ALBUTEROL SO4 0.083% IH SOL 2.5 MG/3 ML VIAL.NEB. NEB SCH ×4 (08:07→20:40)
[2017-04-16] MEDS: ACETYLCYSTEINE 20% 200MG/ML 4 ML VIAL *FOR ORAL / INH USE ONLY NEB SCH ×4 (08:07→20:40)
[2017-04-16 08:36] LABS: BASO % 0.4 % (0-2.0); EOS % 0.4 % (0-4.5); HEMATOCRIT 28.7 % (32.4-45.2); HEMOGLOBIN 8.7 GM/dL (10.7-15.3); LYMPH % 7.3 % (8-40); MCH 27.1 pg (25.7-33.7); MCHC 30.3 g/dl (32.0-36.0); MEAN CELL VOLUME 89.6 fl (80-96); MEAN PLT VOLUME 9.2 fl (7.5-11.1); MONO % 3.4 % (3.8-10.2); NEUT % 88.5 % (42.8-82.8); PLATELET COUNT 313 K/MM3 (134-434); RDW 19.6 % (11.6-15.6)
[2017-04-16] MEDS: METOPROLOL TARTRATE 5 MG/5 ML VIAL IVPUSH PRN ×3 (08:45→21:23)
[2017-04-16] MEDS: LORazepam 2 MG/ML SDV VIAL IM PRN (08:45)
[2017-04-16 08:56] LABS: INR 2.58 (0.82-1.09); PROTHROMBIN TIME (PATIENT) 29.2 SEC (9.98-11.88)
[2017-04-16 09:58] LABS: ANION GAP 7 (8-16); BLOOD UREA NITROGEN 21 mg/dL (7-18); CALCIUM 8.1 mg/dL (8.5-10.1); CHLORIDE 111 mmol/L (98-107); CO2 34 mmol/L (21-32); GLUCOSE,RANDOM 78 mg/dL (74-106); MAGNESIUM 1.5 mg/dL (1.8-2.4); PHOSPHOROUS 1.9 mg/dL (2.5-4.9); SODIUM 152 mmol/L (136-145)
--- NOTE | 2017-04-16 10:10 | PN ---
Progress Note (short form) - Note Progress Note: s: lethargic, not answering questions o: Vital Signs Period Temp Pulse Resp BP Sys/Nieto Pulse Ox Last 24 Hr 97.4 F-98.5 F 109-145 18-38 108-146/61-99 96-100 NAD, calm JVD flat, neck supple irregularly irregular, nl rate nl s1, s2 2/6 murmur at sternal border and apex scattered rhonchi, poor eff + bs soft nt nd ext without edema no cyanosis or clubbing no jaundice, diaphoresis Current Medications Generic Name Dose Route Start Last Admin Trade Name Freq PRN Reason Stop Dose Admin Acetaminophen 650 mg 04/02/17 23:43 04/15/17 22:29 Tylenol - PO 650 mg Q12H PRN Administration PAIN Acetaminophen 850 mg 04/05/17 22:41 04/12/17 10:00 Ofirmev Injection - IVPB 850 mg Q8H PRN Administration Acetylcysteine 600 mg 04/12/17 16:21 04/16/17 08:07 Mucomyst 20 Oral / Inh Use Only* NEB 600 mg RQID [facility] Administration Albuterol Sulfate 1 amp 04/15/17 08:00 04/16/17 08:07 Ventolin 0.083% Nebulizer Soln - NEB 1 amp RQID [facility] Administration Atorvastatin Calcium 20 mg 04/03/17 22:00 04/15/17 22:27 Lipitor - PO 20 mg HS [facility] Administration Cholecalciferol 2,000 unit 04/03/17 10:00 04/15/17 11:08 Vitamin D3 - PO Not Given DAILY [facility] Dextrose 25 gm 04/10/17 16:25 D50w (Vial) - IVPUSH PRN PRN hypoglycemia <75 Diltiazem HCl 60 mg 04/04/17 15:45 04/16/17 06:24 Cardizem - PO 60 mg TID [facility] Administration Docusate Sodium 100 mg 04/03/17 10:00 04/15/17 22:31 Colace - PO 100 mg BID [facility] Administration Guaifenesin 600 mg 04/06/17 01:30 04/15/17 22:27 Mucinex - PO 600 mg BID [facility] Administration Cefepime HCl 1 gm in 50 mls @ 100 mls/hr 04/09/17 18:00 04/15/17 22:27 Maxipime 1 Gm Premix Ivpb IVPB 100 mls/hr BID [facility] Administration Linezolid 600 mg in 300 mls @ 300 mls/hr 04/13/17 13:30 04/16/17 02:30 Zyvox 600 Mg Premix Bag (Restricted To Id) - IVPB 300 mls/hr BID@0200,1400 [facility] Administration Protocol Potassium Chloride 10 meq in 100 mls @ 100 mls/hr 04/16/17 10:15 Potassium Chloride 10 Meq Premix Ivpb - IVPB 04/16/17 13:14 Q60M [facility] Insulin Aspart 1 vial 04/03/17 07:00 04/16/17 06:27 Novolog Vial Sliding Scale - SQ 2 units ACHS [facility] Administration Protocol Lorazepam 0.25 mg 04/12/17 12:06 04/16/17 08:45 Ativan Injection - IM 0.25 mg TID PRN Administration ANXIETY Metoprolol Succinate 50 mg 04/06/17 10:00 04/15/17 10:55 Toprol Xl - PO Not Given DAILY [facility] Metoprolol Tartrate 5 mg 04/15/17 11:07 04/16/17 08:45 Lopressor Injection - IVPUSH 5 mg Q4H PRN Administration TACHYCARDIA Montelukast Sodium 10 mg 04/03/17 22:00 04/15/17 22:27 Singulair - PO 10 mg HS [facility] Administration Polyethylene Glycol 17 gm 04/03/17 10:00 04/15/17 22:28 Miralax (For Daily Use) - PO Not Given BID [facility] Propylthiouracil 50 mg 04/03/17 10:00 04/15/17 10:55 Ptu - PO Not Given DAILY [facility] CBC, BMP 04/16/17 08:15 04/16/17 08:15 EKG: afib, no ischemic changes. Echo 06/2015: afib, nl LV/RV, mild-mod MR/TR, hi LAP, mild ao root dil MIBI 2012: no ST changes, probable breast artifact vs. AW ischemia. Nl EF PFTs 2013: no obstr, mild restr, mild decr DLCO CT chest: severe coronary calcifications. consolidation LEANDRO/LLL. opacities RUL/ RLL ? atx vs scar. no effusions. upper lobe interolbular septal thickening = ? interstitial edema. dilated main PA c/w pulm HTN. CXR 04/12 reviewed: LEANDRO and RLL infiltrates incr'd vs prior (RLL new); dense L base (obscured). small R effusion. diffuse interstitial > alveolar markings in background, no vascular redistributation tele: afib, rvr 120s at times a/p: acute hypoxic resp failure, PNA, sepsis: - lactate elevated initially, with multilobar PNA, fever - recently euvolemic off of bumex as outpatient (bumex held when here 2017 with progressive myeloma bony pain and poor po, with dehydration and hypercalcemia) - multifactorial chronic sob (copd, diast chf, and ? related to very large hiatal hernia). - nonspecific findings of possible interstitial edema on CT (vs chronic interstitial changes--comparison to prior CT not described on report). in absence of pleural effusions or signs of volume on exam, will not agggressively diurese (hold diuretics) - 04/05 had episode of resp distress overnight, reportedly sx's improved s/p lasix 40 iv - lasix 40 po qd started at that time, rep status has been stable. ? of aspiration PNA here. - abx, suppl O2, supportive care per hospitalist/pulm/ID - 04/13-04/16: + hypernatremia. CXR suspicious for pneumonic infiltrates without convincing CHF picture (background of interstitial dz sec to copd likely). appears euvolemic, not taking po. stopped lasix. free water if peg decided upon , family meeting planned. lethargy: - + influenza A, vre uti and possible asp pna --> mgm't of infection per id/pmd Afib - continue bb and dilt if able to take po - prn iv lopressor for hr control if unable to take po meds - cont coumadin dosing prn for goal INR 2-3 VTach: -one run NSVT on monitor (7 beats) -normal LVEF, on BB mild-mod MR - functional, likely related to volume status - echo 06/2015 stable anemia/multiple myeloma - 2/2 multiple myeloma. heme following. - complicated by vertebral fractures. currently on home hospice per cards office notes. - counts stable around 7-8, monitor on coumadin
[2017-04-16] MEDS ORDERED: KCL 10 MEQ IVPB 10 MEQ/100 ML INFUS.BAG IVPB SCH (10:15)
[2017-04-16] MEDS: DOCUSATE SODIUM 100 MG CAPSULE (FP) PO SCH ×2 (10:37→23:42)
[2017-04-16] MEDS: POLYETHYLENE GLYCOL 3350 119 GM BTL PO SCH ×2 (10:37→23:41)
[2017-04-16] MEDS: PROPYLTHIOURACIL 50 MG TABLET (UD) PO SCH (10:38)
[2017-04-16] MEDS: CHOLECALCIFEROL (VITAMIN D3) 1,000 UNIT TABLET (FP) PO SCH (10:38)
[2017-04-16] MEDS: guaiFENesin 600 MG TABLET.ER (FP) PO SCH ×2 (10:38→23:41)
[2017-04-16] MEDS: CEFEPIME HCL/D5W 1 GM/50 ML BAG IVPB SCH (10:46)
[2017-04-16] MEDS: METOPROLOL SUCCINATE 50 MG TAB.SR.24H (FP) PO SCH (10:55)
[2017-04-16] MEDS ORDERED: MAGNESIUM SULF 50% (8.12 MEQ/2 ML-1 GM VIAL) IVPB ONE (11:40)
--- NOTE | 2017-04-16 11:42 | PN ---
Progress Note, Physician History of Present Illness: Patient seem and examined at bedside agitated CXR appears fluid overloaded today as well as yesterday recieved lasix 40mg IV push x1 yesterday Hypernatremia improved slightly now 152 - Current Medication List Current Medications: Active Medications Acetaminophen (Tylenol -) 650 mg PO Q12H PRN PRN Reason: PAIN Last Admin: 04/15/17 22:29 Dose: 650 mg Acetaminophen (Ofirmev Injection -) 850 mg IVPB Q8H PRN Last Admin: 04/12/17 10:00 Dose: 850 mg Acetylcysteine (Mucomyst 20 Oral / Inh Use Only*) 600 mg NEB RQID [facility] Last Admin: 04/16/17 11:06 Dose: 600 mg Albuterol Sulfate (Ventolin 0.083% Nebulizer Soln -) 1 amp NEB RQID [facility] Last Admin: 04/16/17 11:06 Dose: 1 amp Atorvastatin Calcium (Lipitor -) 20 mg PO HS [facility] Last Admin: 04/15/17 22:27 Dose: 20 mg Cholecalciferol (Vitamin D3 -) 2,000 unit PO DAILY [facility] Last Admin: 04/16/17 10:38 Dose: Not Given Dextrose (D50w (Vial) -) 25 gm IVPUSH PRN PRN PRN Reason: hypoglycemia <75 Diltiazem HCl (Cardizem -) 60 mg PO TID [facility] Last Admin: 04/16/17 06:24 Dose: 60 mg Docusate Sodium (Colace -) 100 mg PO BID [facility] Last Admin: 04/16/17 10:37 Dose: Not Given Guaifenesin (Mucinex -) 600 mg PO BID [facility] Last Admin: 04/16/17 10:38 Dose: Not Given Cefepime HCl (Maxipime 1 Gm Premix Ivpb) 1 gm in 50 mls @ 100 mls/hr IVPB BID [facility] Last Admin: 04/16/17 10:46 Dose: 100 mls/hr Linezolid (Zyvox 600 Mg Premix Bag (Restricted To Id) -) 600 mg in 300 mls @ 300 mls/hr IVPB BID@0200,1400 [facility] PRN Reason: Protocol Last Admin: 04/16/17 02:30 Dose: 300 mls/hr Potassium Chloride 10 meq/ (Sodium Chloride) 105 mls @ 105 mls/hr IVPB Q1H [facility] Stop: 04/16/17 13:54 Potassium Phosphate 30 mm/ (Dextrose) 260 mls @ 62.5 mls/hr IVPB ONCE ONE Stop: 04/16/17 15:49 Insulin Aspart (Novolog Vial Sliding Scale -) 1 vial SQ ACHS [facility] PRN Reason: Protocol Last Admin: 04/16/17 10:47 Dose: Not Given Lorazepam (Ativan Injection -) 0.25 mg IM TID PRN PRN Reason: ANXIETY Last Admin: 04/16/17 08:45 Dose: 0.25 mg Magnesium Sulfate (Magnesium Sulfate) 2 gm IVPB ONCE ONE Stop: 04/16/17 11:41 Metoprolol Succinate (Toprol Xl -) 50 mg PO DAILY [facility] Last Admin: 04/16/17 10:55 Dose: Not Given Metoprolol Tartrate (Lopressor Injection -) 5 mg IVPUSH Q4H PRN PRN Reason: TACHYCARDIA Last Admin: 04/16/17 08:45 Dose: 5 mg Montelukast Sodium (Singulair -) 10 mg PO HS [facility] Last Admin: 04/15/17 22:27 Dose: 10 mg Polyethylene Glycol (Miralax (For Daily Use) -) 17 gm PO BID [facility] Last Admin: 04/16/17 10:37 Dose: Not Given Propylthiouracil (Ptu -) 50 mg PO DAILY [facility] Last Admin: 04/16/17 10:38 Dose: Not Given - Objective Vital Signs: Vital Signs Temperature 98.4 F 04/16/17 08:39 Pulse Rate 142 H 04/16/17 08:45 Respiratory Rate 38 H 04/16/17 08:39 Blood Pressure 146/96 04/16/17 08:45 O2 Sat by Pulse Oximetry (%) 100 04/16/17 08:06 Constitutional: Yes: No Distress HENT: Yes: Atraumatic Neck: Yes: Supple Cardiovascular: Yes: Pulse Irregular Respiratory: Yes: Rales (coarse) Gastrointestinal: Yes: Soft Edema: No Neurological: Yes: agitated Labs: CBC, BMP 04/16/17 08:15 04/16/17 08:15 INR, PTT INR 2.58 (0.82-1.09) H 04/16/17 08:15 Assessment/Plan 86F with multiple medical problems presents to the hospital with shortness of breath now currently with acute hypoxic respiratory failure, CHEL, and hypernatremia. Problem List: Hypernatremia CHEL Multiple myeloma Acute hypoxic respiratory failure Brain Tumor CHF DM COPD HLD Anemia A fib Influenza Pneumonia VRE UTI hyomagnesemia hypokalemia hypophosphatemia Plan: Hold IVF Current free water deficit about 1.5 liters Get CXR in AM continue BiPAP for respiratory support-desaturates off BiPAP Continue Antibiotics per ID trend renal function-creatinine improved trend sodium/BMP replete magnesium potassium and phosphorus Family meeting for feeding tube and if agreed will start free water thru PEG or NG tube Case discussed with attending Dr. Rolle
[2017-04-16] MEDS ORDERED: MAGNESIUM SULFATE IN WATER 2 GM/50 ML IVPB IVPB ONE (12:00)
[2017-04-16] MEDS: ACETAMINOPHEN 1000 MG/100 ML VIAL (NON FORMULARY) IVPB PRN ×2 (12:02→21:40)
--- NOTE | 2017-04-16 12:03 | PN ---
Progress Note (short form) - Note Progress Note: Pt seen and examined. Declining clinical status events noted. Pt presently on BiPAP ROS unobtianable. O/E: General: on BiPAP, moaning HEENT: NCAT Cor:Tachy Resp: Tachypneic Abdomen: Normal Extre: No CCE Last Vital Signs Temp Pulse Resp BP Pulse Ox 98.4 F 142 H 38 H 146/96 100 04/16/17 08:39 04/16/17 08:45 04/16/17 08:39 04/16/17 08:45 04/16/17 08:06 CBC, BMP 04/16/17 08:15 04/16/17 08:15 Current Medications Generic Name Dose Route Start Last Admin Trade Name Freq PRN Reason Stop Dose Admin Acetaminophen 650 mg 04/02/17 23:43 04/15/17 22:29 Tylenol - PO 650 mg Q12H PRN Administration PAIN Acetaminophen 850 mg 04/05/17 22:41 04/12/17 10:00 Ofirmev Injection - IVPB 850 mg Q8H PRN Administration Acetylcysteine 600 mg 04/12/17 16:21 04/16/17 11:06 Mucomyst 20 Oral / Inh Use Only* NEB 600 mg RQID [facility] Administration Albuterol Sulfate 1 amp 04/15/17 08:00 04/16/17 11:06 Ventolin 0.083% Nebulizer Soln - NEB 1 amp RQID [facility] Administration Atorvastatin Calcium 20 mg 04/03/17 22:00 04/15/17 22:27 Lipitor - PO 20 mg HS [facility] Administration Cholecalciferol 2,000 unit 04/03/17 10:00 04/16/17 10:38 Vitamin D3 - PO Not Given DAILY [facility] Dextrose 25 gm 04/10/17 16:25 D50w (Vial) - IVPUSH PRN PRN hypoglycemia <75 Diltiazem HCl 60 mg 04/04/17 15:45 04/16/17 06:24 Cardizem - PO 60 mg TID [facility] Administration Docusate Sodium 100 mg 04/03/17 10:00 04/16/17 10:37 Colace - PO Not Given BID [facility] Guaifenesin 600 mg 04/06/17 01:30 04/16/17 10:38 Mucinex - PO Not Given BID [facility] Cefepime HCl 1 gm in 50 mls @ 100 mls/hr 04/09/17 18:00 04/16/17 10:46 Maxipime 1 Gm Premix Ivpb IVPB 100 mls/hr BID [facility] Administration Linezolid 600 mg in 300 mls @ 300 mls/hr 04/13/17 13:30 04/16/17 02:30 Zyvox 600 Mg Premix Bag (Restricted To Id) - IVPB 300 mls/hr BID@0200,1400 [facility] Administration Protocol Potassium Chloride 10 meq/ 105 mls @ 105 mls/hr 04/16/17 10:55 Sodium Chloride IVPB 04/16/17 13:54 Q1H [facility] Potassium Phosphate 30 mm/ 510 mls @ 85 mls/hr 04/16/17 12:15 Dextrose IVPB 04/16/17 18:14 ONCE ONE MAGNESIUM SULFATE IN WATER 2 gm in 50 mls @ 50 mls/hr 04/16/17 12:00 Magnesium Sulf 2 G/50 Ml Bag IVPB 04/16/17 12:59 ONCE ONE Insulin Aspart 1 vial 04/03/17 07:00 04/16/17 10:47 Novolog Vial Sliding Scale - SQ Not Given ACHS [facility] Protocol Lorazepam 0.25 mg 04/12/17 12:06 04/16/17 08:45 Ativan Injection - IM 0.25 mg TID PRN Administration ANXIETY Metoprolol Succinate 50 mg 04/06/17 10:00 04/16/17 10:55 Toprol Xl - PO Not Given DAILY [facility] Metoprolol Tartrate 5 mg 04/15/17 11:07 04/16/17 08:45 Lopressor Injection - IVPUSH 5 mg Q4H PRN Administration TACHYCARDIA Montelukast Sodium 10 mg 04/03/17 22:00 04/15/17 22:27 Singulair - PO 10 mg HS [facility] Administration Polyethylene Glycol 17 gm 04/03/17 10:00 04/16/17 10:37 Miralax (For Daily Use) - PO Not Given BID [facility] Propylthiouracil 50 mg 04/03/17 10:00 04/16/17 10:38 Ptu - PO Not Given DAILY [facility] 86 y/o female with myeloma,on palliative care also with flu/pneumonia on BIPAP on abx supportive care GOC discussion
[2017-04-16] MEDS: POTASSIUM CHLORIDE 10 MEQ in SODIUM CHLORIDE 100 ML IVPB SCH ×3 (12:05→17:02)
--- NOTE | 2017-04-16 12:11 | PN ---
Progress Note, Physician History of Present Illness: pulmonary agitated on bipap,tachypneic - Current Medication List Current Medications: Active Medications Acetaminophen (Tylenol -) 650 mg PO Q12H PRN PRN Reason: PAIN Last Admin: 04/15/17 22:29 Dose: 650 mg Acetaminophen (Ofirmev Injection -) 850 mg IVPB Q8H PRN Last Admin: 04/16/17 12:02 Dose: 850 mg Acetylcysteine (Mucomyst 20 Oral / Inh Use Only*) 600 mg NEB RQID [facility] Last Admin: 04/16/17 11:06 Dose: 600 mg Albuterol Sulfate (Ventolin 0.083% Nebulizer Soln -) 1 amp NEB RQID [facility] Last Admin: 04/16/17 11:06 Dose: 1 amp Atorvastatin Calcium (Lipitor -) 20 mg PO HS [facility] Last Admin: 04/15/17 22:27 Dose: 20 mg Cholecalciferol (Vitamin D3 -) 2,000 unit PO DAILY [facility] Last Admin: 04/16/17 10:38 Dose: Not Given Dextrose (D50w (Vial) -) 25 gm IVPUSH PRN PRN PRN Reason: hypoglycemia <75 Diltiazem HCl (Cardizem -) 60 mg PO TID [facility] Last Admin: 04/16/17 06:24 Dose: 60 mg Docusate Sodium (Colace -) 100 mg PO BID [facility] Last Admin: 04/16/17 10:37 Dose: Not Given Guaifenesin (Mucinex -) 600 mg PO BID [facility] Last Admin: 04/16/17 10:38 Dose: Not Given Cefepime HCl (Maxipime 1 Gm Premix Ivpb) 1 gm in 50 mls @ 100 mls/hr IVPB BID [facility] Last Admin: 04/16/17 10:46 Dose: 100 mls/hr Linezolid (Zyvox 600 Mg Premix Bag (Restricted To Id) -) 600 mg in 300 mls @ 300 mls/hr IVPB BID@0200,1400 [facility] PRN Reason: Protocol Last Admin: 04/16/17 02:30 Dose: 300 mls/hr Potassium Chloride 10 meq/ (Sodium Chloride) 105 mls @ 105 mls/hr IVPB Q1H [facility] Stop: 04/16/17 13:54 Last Admin: 04/16/17 12:05 Dose: 105 mls/hr Potassium Phosphate 30 mm/ (Dextrose) 510 mls @ 85 mls/hr IVPB ONCE ONE Stop: 04/16/17 18:14 MAGNESIUM SULFATE IN WATER (Magnesium Sulf 2 G/50 Ml Bag) 2 gm in 50 mls @ 50 mls/hr IVPB ONCE ONE Stop: 04/16/17 12:59 Insulin Aspart (Novolog Vial Sliding Scale -) 1 vial SQ ACHS [facility] PRN Reason: Protocol Last Admin: 04/16/17 10:47 Dose: Not Given Lorazepam (Ativan Injection -) 0.25 mg IM TID PRN PRN Reason: ANXIETY Last Admin: 04/16/17 08:45 Dose: 0.25 mg Metoprolol Succinate (Toprol Xl -) 50 mg PO DAILY [facility] Last Admin: 04/16/17 10:55 Dose: Not Given Metoprolol Tartrate (Lopressor Injection -) 5 mg IVPUSH Q4H PRN PRN Reason: TACHYCARDIA Last Admin: 04/16/17 08:45 Dose: 5 mg Montelukast Sodium (Singulair -) 10 mg PO HS [facility] Last Admin: 04/15/17 22:27 Dose: 10 mg Polyethylene Glycol (Miralax (For Daily Use) -) 17 gm PO BID [facility] Last Admin: 04/16/17 10:37 Dose: Not Given Propylthiouracil (Ptu -) 50 mg PO DAILY [facility] Last Admin: 04/16/17 10:38 Dose: Not Given - Objective Vital Signs: Vital Signs Temperature 98.4 F 04/16/17 08:39 Pulse Rate 142 H 04/16/17 08:45 Respiratory Rate 38 H 04/16/17 08:39 Blood Pressure 146/96 04/16/17 08:45 O2 Sat by Pulse Oximetry (%) 100 04/16/17 08:06 Constitutional: Yes: Thin, Other (agitated) Eyes: Yes: WNL HENT: Yes: WNL Neck: Yes: WNL Cardiovascular: Yes: Pulse Irregular, S1, S2 Respiratory: Yes: Rales, Rhonchi (bernardo crackles,scattered rhonchi) Gastrointestinal: Yes: Normal Bowel Sounds, Soft Extremities: Yes: WNL Edema: No Labs: CBC, BMP 04/16/17 08:15 04/16/17 08:15 INR, PTT INR 2.58 (0.82-1.09) H 04/16/17 08:15 - ....Imaging Chest X-ray: Report Reviewed, Image Reviewed Problem List - Problems (1) COPD (chronic obstructive pulmonary disease) Code(s): J44.9 - CHRONIC OBSTRUCTIVE PULMONARY DISEASE, UNSPECIFIED (2) Chronic a-fib Code(s): I48.2 - CHRONIC ATRIAL FIBRILLATION (3) Pneumonia Code(s): J18.9 - PNEUMONIA, UNSPECIFIED ORGANISM (4) SOB (shortness of breath) Code(s): R06.02 - SHORTNESS OF BREATH (5) Meningioma Code(s): D32.9 - BENIGN NEOPLASM OF MENINGES, UNSPECIFIED (6) Multiple myeloma Code(s): C90.00 - MULTIPLE MYELOMA NOT HAVING ACHIEVED REMISSION Qualifiers: Multiple myeloma remission status: not in remission Qualified Code(s): C90.00 - Multiple myeloma not having achieved remission (7) Acute respiratory failure with hypoxia and hypercapnia Code(s): J96.01 - ACUTE RESPIRATORY FAILURE WITH HYPOXIA; J96.02 - ACUTE RESPIRATORY FAILURE WITH HYPERCAPNIA (8) Congestive heart failure Code(s): I50.9 - HEART FAILURE, UNSPECIFIED Qualifiers: Congestive heart failure type: diastolic Congestive heart failure chronicity: chronic Qualified Code(s): I50.32 - Chronic diastolic (congestive ) heart failure (9) Diabetes mellitus Code(s): E11.9 - TYPE 2 DIABETES MELLITUS WITHOUT COMPLICATIONS Assessment/Plan IMP ACUTE HYPOXEMIC/HYPERCAPNEIC RESPIRATORY FAILURE PNEUMONIA WORSENING INFLUENZA A CHF AFIB COPD DM MM ANEMIA HYPERNATREMIA PLAN O2 NIPPV NEEDED INHALED BRONCHODILATORS RATE CONTROL F/U CHEST X-RAYS MONITOR H+H MONITOR HUANG THOMPSON Problem List - Problems (1) COPD (chronic obstructive pulmonary disease) Code(s): J44.9 - CHRONIC OBSTRUCTIVE PULMONARY DISEASE, UNSPECIFIED (2) Chronic a-fib Code(s): I48.2 - CHRONIC ATRIAL FIBRILLATION (3) Pneumonia Code(s): J18.9 - PNEUMONIA, UNSPECIFIED ORGANISM (4) SOB (shortness of breath) Code(s): R06.02 - SHORTNESS OF BREATH (5) Meningioma Code(s): D32.9 - BENIGN NEOPLASM OF MENINGES, UNSPECIFIED (6) Multiple myeloma Code(s): C90.00 - MULTIPLE MYELOMA NOT HAVING ACHIEVED REMISSION Qualifiers: Multiple myeloma remission status: not in remission Qualified Code(s): C90.00 - Multiple myeloma not having achieved remission (7) Acute respiratory failure with hypoxia and hypercapnia Code(s): J96.01 - ACUTE RESPIRATORY FAILURE WITH HYPOXIA; J96.02 - ACUTE RESPIRATORY FAILURE WITH HYPERCAPNIA (8) Congestive heart failure Code(s): I50.9 - HEART FAILURE, UNSPECIFIED Qualifiers: Congestive heart failure type: diastolic Congestive heart failure chronicity: chronic Qualified Code(s): I50.32 - Chronic diastolic (congestive ) heart failure (9) Diabetes mellitus Code(s): E11.9 - TYPE 2 DIABETES MELLITUS WITHOUT COMPLICATIONS
[2017-04-16] MEDS ORDERED: POTASSIUM PHOSPHATE 30 MM in DEXTROSE 5%-WATER - 500 ML IVPB ONE (12:15)
--- NOTE | 2017-04-16 14:24 | PN ---
Teaching Attending Note Name of Resident: Rafy Owens (Nephrology) ATTENDING PHYSICIAN STATEMENT I saw and evaluated the patient. I reviewed the resident's note and discussed the case with the resident. I agree with the resident's findings and plan as documented. Renal Follow Up Pt seen and examined at bedside. She appears more comfortable than yesterday. She tolerated the dose of lasix last night. Current Medications Generic Name Dose Route Start Last Admin Trade Name Freq PRN Reason Stop Dose Admin Acetaminophen 650 mg 04/02/17 23:43 04/15/17 22:29 Tylenol - PO 650 mg Q12H PRN Administration PAIN Acetaminophen 850 mg 04/05/17 22:41 04/16/17 12:02 Ofirmev Injection - IVPB 850 mg Q8H PRN Administration Acetylcysteine 600 mg 04/12/17 16:21 04/16/17 11:06 Mucomyst 20 Oral / Inh Use Only* NEB 600 mg RQID [facility] Administration Albuterol Sulfate 1 amp 04/15/17 08:00 04/16/17 11:06 Ventolin 0.083% Nebulizer Soln - NEB 1 amp RQID [facility] Administration Atorvastatin Calcium 20 mg 04/03/17 22:00 04/15/17 22:27 Lipitor - PO 20 mg HS [facility] Administration Cholecalciferol 2,000 unit 04/03/17 10:00 04/16/17 10:38 Vitamin D3 - PO Not Given DAILY [facility] Dextrose 25 gm 04/10/17 16:25 D50w (Vial) - IVPUSH PRN PRN hypoglycemia <75 Diltiazem HCl 60 mg 04/04/17 15:45 04/16/17 06:24 Cardizem - PO 60 mg TID [facility] Administration Docusate Sodium 100 mg 04/03/17 10:00 04/16/17 10:37 Colace - PO Not Given BID [facility] Guaifenesin 600 mg 04/06/17 01:30 04/16/17 10:38 Mucinex - PO Not Given BID [facility] Linezolid 600 mg in 300 mls @ 300 mls/hr 04/13/17 13:30 04/16/17 02:30 Zyvox 600 Mg Premix Bag (Restricted To Id) - IVPB 300 mls/hr BID@0200,1400 [facility] Administration Protocol Potassium Phosphate 30 mm/ 510 mls @ 85 mls/hr 04/16/17 12:15 Dextrose IVPB 04/16/17 18:14 ONCE ONE Insulin Aspart 1 vial 04/03/17 07:00 04/16/17 10:47 Novolog Vial Sliding Scale - SQ Not Given ACHS [facility] Protocol Lorazepam 0.25 mg 04/12/17 12:06 04/16/17 08:45 Ativan Injection - IM 0.25 mg TID PRN Administration ANXIETY Metoprolol Succinate 50 mg 04/06/17 10:00 04/16/17 10:55 Toprol Xl - PO Not Given DAILY [facility] Metoprolol Tartrate 5 mg 04/15/17 11:07 04/16/17 08:45 Lopressor Injection - IVPUSH 5 mg Q4H PRN Administration TACHYCARDIA Montelukast Sodium 10 mg 04/03/17 22:00 04/15/17 22:27 Singulair - PO 10 mg HS [facility] Administration Polyethylene Glycol 17 gm 04/03/17 10:00 04/16/17 10:37 Miralax (For Daily Use) - PO Not Given BID [facility] Propylthiouracil 50 mg 04/03/17 10:00 04/16/17 10:38 Ptu - PO Not Given DAILY [facility] Laboratory Tests 04/16/17 08:15 Sodium 152 H Potassium 3.0 L cardio s1s2 pulm rhonchi, on bipap Gi soft ext neg edema neuro awake Impression 1. acute resp failure 2. CHF 3. hx meningioma 4. DM 5. HTN 6. hx myeloma 7. anemia 8. hypernatremia 9. hypokalemia Plan - replace potassium - repeat labs in am - sodium is improved from yesterday - family meeting for GO - will hold off lasix for now - if they agree to an ng tube can start free water Dr Rolle
[2017-04-16] MEDS ORDERED: POTASSIUM CHLORIDE ORAL LIQUID 20 MEQ/15 ML PO ONE (14:29)
--- NOTE | 2017-04-16 16:05 | PN ---
Progress Note, Physician Chief Complaint: Unable to obtain, patient altered and lethargic. - Current Medication List Current Medications: Active Medications Acetaminophen (Tylenol -) 650 mg PO Q12H PRN PRN Reason: PAIN Last Admin: 04/15/17 22:29 Dose: 650 mg Acetaminophen (Ofirmev Injection -) 850 mg IVPB Q8H PRN Last Admin: 04/16/17 12:02 Dose: 850 mg Acetylcysteine (Mucomyst 20 Oral / Inh Use Only*) 600 mg NEB RQID [facility] Last Admin: 04/16/17 11:06 Dose: 600 mg Albuterol Sulfate (Ventolin 0.083% Nebulizer Soln -) 1 amp NEB RQID [facility] Last Admin: 04/16/17 11:06 Dose: 1 amp Atorvastatin Calcium (Lipitor -) 20 mg PO HS [facility] Last Admin: 04/15/17 22:27 Dose: 20 mg Cholecalciferol (Vitamin D3 -) 2,000 unit PO DAILY [facility] Last Admin: 04/16/17 10:38 Dose: Not Given Dextrose (D50w (Vial) -) 25 gm IVPUSH PRN PRN PRN Reason: hypoglycemia <75 Diltiazem HCl (Cardizem -) 60 mg PO TID [facility] Last Admin: 04/16/17 14:58 Dose: Not Given Docusate Sodium (Colace -) 100 mg PO BID [facility] Last Admin: 04/16/17 10:37 Dose: Not Given Guaifenesin (Mucinex -) 600 mg PO BID [facility] Last Admin: 04/16/17 10:38 Dose: Not Given Linezolid (Zyvox 600 Mg Premix Bag (Restricted To Id) -) 600 mg in 300 mls @ 300 mls/hr IVPB BID@0200,1400 [facility] PRN Reason: Protocol Last Admin: 04/16/17 14:59 Dose: 300 mls/hr Potassium Phosphate 30 mm/ (Dextrose) 510 mls @ 85 mls/hr IVPB ONCE ONE Stop: 04/16/17 18:14 Insulin Aspart (Novolog Vial Sliding Scale -) 1 vial SQ ACHS [facility] PRN Reason: Protocol Last Admin: 04/16/17 10:47 Dose: Not Given Metoprolol Succinate (Toprol Xl -) 50 mg PO DAILY [facility] Last Admin: 04/16/17 10:55 Dose: Not Given Metoprolol Tartrate (Lopressor Injection -) 5 mg IVPUSH Q4H PRN PRN Reason: TACHYCARDIA Last Admin: 04/16/17 08:45 Dose: 5 mg Montelukast Sodium (Singulair -) 10 mg PO HS [facility] Last Admin: 04/15/17 22:27 Dose: 10 mg Polyethylene Glycol (Miralax (For Daily Use) -) 17 gm PO BID [facility] Last Admin: 04/16/17 10:37 Dose: Not Given Propylthiouracil (Ptu -) 50 mg PO DAILY [facility] Last Admin: 04/16/17 10:38 Dose: Not Given - Objective Vital Signs: Vital Signs Temperature 36.9 C 04/16/17 08:39 Pulse Rate 142 H 04/16/17 08:45 Respiratory Rate 38 H 04/16/17 09:00 Blood Pressure 146/96 04/16/17 08:45 O2 Sat by Pulse Oximetry (%) 94 L 04/16/17 09:00 Constitutional: Yes: Moderate Distress Cardiovascular: Yes: Tachycardia, Pulse Irregular. No: Gallop, Murmur, Rub Respiratory: Yes: On BiPap, Rhonchi, Tachypnea, Wheezes. No: Regular, CTA Bilaterally, Rales Gastrointestinal: Yes: Normal Bowel Sounds, Soft. No: Distention, Tenderness Extremities: Yes: WNL Edema: No Labs: CBC, BMP 04/16/17 08:15 04/16/17 08:15 INR, PTT INR 2.58 (0.82-1.09) H 04/16/17 08:15 Problem List - Problems (1) Acute respiratory failure with hypoxia Code(s): J96.01 - ACUTE RESPIRATORY FAILURE WITH HYPOXIA (2) Influenza A Code(s): J10.1 - FLU DUE TO OTH IDENT INFLUENZA VIRUS W OTH RESP MANIFEST (3) Pneumonia Code(s): J18.9 - PNEUMONIA, UNSPECIFIED ORGANISM (4) Vertebral fracture Code(s): WJB7990 - Qualifiers: Encounter type: initial encounter Fracture of vertebra location: lumbar Lumbar vertebra fracture level: unspecified lumbar vertebra Fracture type: closed Fracture morphology: other fracture Qualified Code(s): S32.008A - Other fracture of unspecified lumbar vertebra, initial encounter for closed fracture (5) Atrial fibrillation Code(s): I48.91 - UNSPECIFIED ATRIAL FIBRILLATION Qualifiers: Atrial fibrillation type: chronic Qualified Code(s): I48.2 - Chronic atrial fibrillation (6) Atypical chest pain Code(s): R07.89 - OTHER CHEST PAIN (7) COPD (chronic obstructive pulmonary disease) Code(s): J44.9 - CHRONIC OBSTRUCTIVE PULMONARY DISEASE, UNSPECIFIED (8) Congestive heart failure Code(s): I50.9 - HEART FAILURE, UNSPECIFIED Qualifiers: Congestive heart failure type: diastolic Congestive heart failure chronicity: chronic Qualified Code(s): I50.32 - Chronic diastolic (congestive ) heart failure (9) Diabetes mellitus Code(s): E11.9 - TYPE 2 DIABETES MELLITUS WITHOUT COMPLICATIONS (10) Hyperlipidemia Code(s): E78.5 - HYPERLIPIDEMIA, UNSPECIFIED (11) Multiple myeloma Code(s): C90.00 - MULTIPLE MYELOMA NOT HAVING ACHIEVED REMISSION Qualifiers: Multiple myeloma remission status: not in remission Qualified Code(s): C90.00 - Multiple myeloma not having achieved remission (12) Metabolic encephalopathy Code(s): G93.41 - METABOLIC ENCEPHALOPATHY (13) Diverticulitis Code(s): K57.92 - DVTRCLI OF INTEST, PART UNSP, W/O PERF OR ABSCESS W/O BLEED Assessment/Plan (1) Acute hypoxic respiratory failure -continue bipap -pulmonary following -very poor prognosis, family discussing goals of care (2) Influenza pneumonia with recurring sepsis -finished full course of tamiflu -cefepime stopped by ID (3) Sepsis, recurrent Assessment/Plan: -also with VRE in urine -continue linezolid -ID following Code(s): J18.9 - PNEUMONIA, UNSPECIFIED ORGANISM (4) Vertebral fracture Assessment/Plan: -continue IV tylenol Code(s): [id number] - Qualifiers: Encounter type: initial encounter Fracture of vertebra location: lumbar Lumbar vertebra fracture level: unspecified lumbar vertebra Fracture type: closed Fracture morphology: other fracture Qualified Code(s): S32.008A - Other fracture of unspecified lumbar vertebra, initial encounter for closed fracture (5) Atrial fibrillation with supratherapeutic INR Assessment/Plan: -INR therapeutic -patient currently not able to take po -monitor Code(s): I48.91 - UNSPECIFIED ATRIAL FIBRILLATION Qualifiers: Atrial fibrillation type: chronic Qualified Code(s): I48.2 - Chronic atrial fibrillation (6) COPD (chronic obstructive pulmonary disease) Assessment/Plan: -with exacerbation from influenza -mucomyst Code(s): J44.9 - CHRONIC OBSTRUCTIVE PULMONARY DISEASE, UNSPECIFIED (7) Congestive heart failure Assessment/Plan: -cardiology following and appreciate assistance -not in exacerbation -monitor since receiving fluid Code(s): I50.9 - HEART FAILURE, UNSPECIFIED Qualifiers: Congestive heart failure type: diastolic Congestive heart failure chronicity: chronic Qualified Code(s): I50.32 - Chronic diastolic (congestive ) heart failure (8) Diabetes mellitus Assessment/Plan: -patient with decreased po intake Code(s): E11.9 - TYPE 2 DIABETES MELLITUS WITHOUT COMPLICATIONS (9) Hyperlipidemia Assessment/Plan: -hold lipitor currently Code(s): E78.5 - HYPERLIPIDEMIA, UNSPECIFIED (10) Multiple myeloma Assessment/Plan: -oncology consulted and following Code(s): C90.00 - MULTIPLE MYELOMA NOT HAVING ACHIEVED REMISSION Qualifiers: Multiple myeloma remission status: not in remission Qualified Code(s): C90.00 - Multiple myeloma not having achieved remission (11) Metabolic encephalopathy -worsening (1) Diverticulitis Assessment/Plan -resolved Code(s): K57.92 - DVTRCLI OF INTEST, PART UNSP, W/O PERF OR ABSCESS W/O BLEED (12) Hypernatremia with hypokalemia -case d/w Dr Rolle -hypernatremia improved -replace potassium Dispo -patient with very poor prognosis -appreciate palliative care assistance
[2017-04-16] MEDS ORDERED: SODIUM CHLORIDE 1,000 ML IV STA (16:49)
[2017-04-16] MEDS ORDERED: INSULIN (NOVOLOG) ASPART 100 UNITS/ML 10ML VIAL ONE (21:14)
[2017-04-16] MEDS: MONTELUKAST NA 10 MG TABLET PO SCH (23:41)
[2017-04-16] MEDS: ATORVASTATIN CA 20 MG TABLET (FP) PO SCH (23:41)
[2017-04-17] MEDS: LINEZOLID 600 MG PREMIX BAG 600 MG/300 ML BAG IVPB SCH (01:38)
[2017-04-17] MEDS: METOPROLOL TARTRATE 5 MG/5 ML VIAL IVPUSH PRN ×3 (02:01→10:01)
[2017-04-17] MEDS: dilTIAZem HCL 60 MG TABLET (FP) PO SCH (06:05)
[2017-04-17] MEDS: INSULIN SLIDING SCALE (NOVOLOG) 1 VIAL SQ SCH (06:06)
[2017-04-17 07:26] LABS: INR 2.09 (0.82-1.09); PROTHROMBIN TIME (PATIENT) 23.6 SEC (9.98-11.88)
[2017-04-17 07:59] LABS: BASO % 0.7 % (0-2.0); EOS % 0.2 % (0-4.5); HEMOGLOBIN 8.7 GM/dL (10.7-15.3); LYMPH % 5.9 % (8-40); MCH 27.3 pg (25.7-33.7); MEAN PLT VOLUME 10.2 fl (7.5-11.1); MONO % 3.7 % (3.8-10.2); NEUT % 89.5 % (42.8-82.8); PLATELET COUNT 292 K/MM3 (134-434); RBC 3.19 M/mm3 (3.60-5.2); RDW 19.9 % (11.6-15.6); WHITE BLOOD COUNT 15.7 K/mm3 (4.0-10.0)
[2017-04-17 08:01] LABS: ANION GAP 14 (8-16); BLOOD UREA NITROGEN 30 mg/dL (7-18); CALCIUM 7.6 mg/dL (8.5-10.1); CHLORIDE 109 mmol/L (98-107); CO2 28 mmol/L (21-32); CREATININE 1.3 mg/dL (0.55-1.02); GLUCOSE,RANDOM 192 mg/dL (74-106); PHOSPHOROUS 6.1 mg/dL (2.5-4.9); SODIUM 151 mmol/L (136-145)
[2017-04-17 08:02] LABS: MAGNESIUM 1.7 mg/dL (1.8-2.4); POTASSIUM 3.9 mmol/L (3.5-5.1)
[2017-04-17] MEDS: ACETYLCYSTEINE 20% 200MG/ML 4 ML VIAL *FOR ORAL / INH USE ONLY NEB SCH ×2 (08:10→11:04)
[2017-04-17] MEDS: ALBUTEROL SO4 0.083% IH SOL 2.5 MG/3 ML VIAL.NEB. NEB SCH ×2 (08:10→11:04)
[2017-04-17] MEDS: ACETAMINOPHEN 1000 MG/100 ML VIAL (NON FORMULARY) IVPB PRN (09:50)
[2017-04-17 10:02] VITALS: BP 130/62; PULSE 123
[2017-04-17] MEDS ORDERED: DEXTROSE 5%-WATER - 1,000 ML IV SCH (10:15)
--- NOTE | 2017-04-17 10:20 | PN ---
Progress Note, Physician History of Present Illness: Patient seem and examined at bedside patient remains agitated and on bipap CXR appears fluid overloaded today with no significant change from yesterday Hypernatremia improved slightly now 151 family meeting about goals of care pending - Current Medication List Current Medications: Active Medications Acetaminophen (Tylenol -) 650 mg PO Q12H PRN PRN Reason: PAIN Last Admin: 04/15/17 22:29 Dose: 650 mg Acetaminophen (Ofirmev Injection -) 850 mg IVPB Q8H PRN Last Admin: 04/17/17 09:50 Dose: 850 mg Acetylcysteine (Mucomyst 20 Oral / Inh Use Only*) 600 mg NEB RQID [facility] Last Admin: 04/17/17 08:10 Dose: 600 mg Albuterol Sulfate (Ventolin 0.083% Nebulizer Soln -) 1 amp NEB RQID [facility] Last Admin: 04/17/17 08:10 Dose: 1 amp Atorvastatin Calcium (Lipitor -) 20 mg PO HS [facility] Last Admin: 04/16/17 23:41 Dose: Not Given Cholecalciferol (Vitamin D3 -) 2,000 unit PO DAILY [facility] Last Admin: 04/16/17 10:38 Dose: Not Given Dextrose (D50w (Vial) -) 25 gm IVPUSH PRN PRN PRN Reason: hypoglycemia <75 Diltiazem HCl (Cardizem -) 60 mg PO TID [facility] Last Admin: 04/17/17 06:05 Dose: Not Given Docusate Sodium (Colace -) 100 mg PO BID [facility] Last Admin: 04/16/17 23:42 Dose: Not Given Guaifenesin (Mucinex -) 600 mg PO BID [facility] Last Admin: 04/16/17 23:41 Dose: Not Given Linezolid (Zyvox 600 Mg Premix Bag (Restricted To Id) -) 600 mg in 300 mls @ 300 mls/hr IVPB BID@0200,1400 [facility] PRN Reason: Protocol Last Admin: 04/17/17 01:38 Dose: 300 mls/hr Dextrose (D5w -) 1,000 mls @ 50 mls/hr IV .[id number] [facility] Insulin Aspart (Novolog Vial Sliding Scale -) 1 vial SQ ACHS [facility] PRN Reason: Protocol Last Admin: 04/17/17 06:06 Dose: 4 units Metoprolol Succinate (Toprol Xl -) 50 mg PO DAILY [facility] Last Admin: 04/16/17 10:55 Dose: Not Given Metoprolol Tartrate (Lopressor Injection -) 5 mg IVPUSH Q4H PRN PRN Reason: TACHYCARDIA Last Admin: 04/17/17 10:01 Dose: 5 mg Montelukast Sodium (Singulair -) 10 mg PO HS [facility] Last Admin: 04/16/17 23:41 Dose: Not Given Polyethylene Glycol (Miralax (For Daily Use) -) 17 gm PO BID [facility] Last Admin: 04/16/17 23:41 Dose: Not Given Propylthiouracil (Ptu -) 50 mg PO DAILY [facility] Last Admin: 04/16/17 10:38 Dose: Not Given - Objective Vital Signs: Vital Signs Temperature 100.2 F H 04/17/17 06:00 Pulse Rate 123 H 04/17/17 10:01 Respiratory Rate 40 H 04/17/17 06:00 Blood Pressure 130/62 04/17/17 10:01 O2 Sat by Pulse Oximetry (%) 96 04/17/17 08:10 Constitutional: Yes: No Distress HENT: Yes: Atraumatic Neck: Yes: Supple Cardiovascular: Yes: Pulse Irregular Respiratory: Yes: Rales (coarse) Gastrointestinal: Yes: Soft Edema: No Neurological: Yes: agitated Labs: CBC, BMP 04/17/17 06:45 04/17/17 06:45 INR, PTT INR 2.09 (0.82-1.09) H 04/17/17 06:45 Assessment/Plan 86F with multiple medical problems presents to the hospital with shortness of breath now currently with acute hypoxic respiratory failure, CHEL, and hypernatremia. Problem List: Hypernatremia CHEL Multiple myeloma Acute hypoxic respiratory failure Brain Tumor CHF DM COPD HLD Anemia A fib Influenza Pneumonia VRE UTI hyomagnesemia hypokalemia hypophosphatemia Plan: stop NS. Started yesterday for hypotension. BP improved now. Start D5W @ 50ml/hr for now repeat BMP in AM Creatinine worsened today 1.3 Current free water deficit about 1.1 liters Get CXR in AM continue BiPAP for respiratory support-desaturates off BiPAP Continue Antibiotics per ID trend renal function trend sodium/BMP Potassium improved replete magnesium Family meeting for feeding tube and if agreed will start free water thru PEG or NG tube Case discussed with attending Dr. Rolle
[2017-04-17] MEDS ORDERED: MAGNESIUM SULF 50% (8.12 MEQ/2 ML-1 GM VIAL) IVPB ONE ×2 (10:24)
--- NOTE | 2017-04-17 10:48 | PN ---
Progress Note (short form) - Note Progress Note: s: lethargic, not answering questions o: Vital Signs Period Temp Pulse Resp BP Sys/Nieto Pulse Ox Last 24 Hr 97.7 F-101 F 123-158 20-40 84-130/51-72 94-100 NAD, calm JVD flat, neck supple irregularly irregular, nl rate nl s1, s2 2/6 murmur at sternal border and apex scattered rhonchi, poor eff + bs soft nt nd ext without edema no cyanosis or clubbing no jaundice, diaphoresis Current Medications Generic Name Dose Route Start Last Admin Trade Name Freq PRN Reason Stop Dose Admin Acetaminophen 650 mg 04/02/17 23:43 04/15/17 22:29 Tylenol - PO 650 mg Q12H PRN Administration PAIN Acetaminophen 850 mg 04/05/17 22:41 04/17/17 09:50 Ofirmev Injection - IVPB 850 mg Q8H PRN Administration Acetylcysteine 600 mg 04/12/17 16:21 04/17/17 08:10 Mucomyst 20 Oral / Inh Use Only* NEB 600 mg RQID [facility] Administration Albuterol Sulfate 1 amp 04/15/17 08:00 04/17/17 08:10 Ventolin 0.083% Nebulizer Soln - NEB 1 amp RQID [facility] Administration Atorvastatin Calcium 20 mg 04/03/17 22:00 04/16/17 23:41 Lipitor - PO Not Given HS [facility] Cholecalciferol 2,000 unit 04/03/17 10:00 04/16/17 10:38 Vitamin D3 - PO Not Given DAILY [facility] Dextrose 25 gm 04/10/17 16:25 D50w (Vial) - IVPUSH PRN PRN hypoglycemia <75 Diltiazem HCl 60 mg 04/04/17 15:45 04/17/17 06:05 Cardizem - PO Not Given TID [facility] Docusate Sodium 100 mg 04/03/17 10:00 04/16/17 23:42 Colace - PO Not Given BID [facility] Guaifenesin 600 mg 04/06/17 01:30 04/16/17 23:41 Mucinex - PO Not Given BID [facility] Linezolid 600 mg in 300 mls @ 300 mls/hr 04/13/17 13:30 04/17/17 01:38 Zyvox 600 Mg Premix Bag (Restricted To Id) - IVPB 300 mls/hr BID@0200,1400 [facility] Administration Protocol Dextrose 1,000 mls @ 50 mls/hr 04/17/17 10:15 D5w - IV ASDIR [facility] Magnesium Sulfate/Dextrose 1 gm in 100 mls @ 100 mls/hr 04/17/17 11:00 Magnesium 1gm/D5w - IVPB 04/17/17 11:59 ONCE ONE Insulin Aspart 1 vial 04/03/17 07:00 04/17/17 06:06 Novolog Vial Sliding Scale - SQ 4 units ACHS [facility] Administration Protocol Metoprolol Succinate 50 mg 04/06/17 10:00 04/16/17 10:55 Toprol Xl - PO Not Given DAILY [facility] Metoprolol Tartrate 5 mg 04/15/17 11:07 04/17/17 10:01 Lopressor Injection - IVPUSH 5 mg Q4H PRN Administration TACHYCARDIA Montelukast Sodium 10 mg 04/03/17 22:00 04/16/17 23:41 Singulair - PO Not Given HS [facility] Polyethylene Glycol 17 gm 04/03/17 10:00 04/16/17 23:41 Miralax (For Daily Use) - PO Not Given BID [facility] Propylthiouracil 50 mg 04/03/17 10:00 04/16/17 10:38 Ptu - PO Not Given DAILY [facility] CBC, BMP 04/17/17 06:45 04/17/17 06:45 EKG: afib, no ischemic changes. Echo 06/2015: afib, nl LV/RV, mild-mod MR/TR, hi LAP, mild ao root dil MIBI 2012: no ST changes, probable breast artifact vs. AW ischemia. Nl EF PFTs 2013: no obstr, mild restr, mild decr DLCO CT chest: severe coronary calcifications. consolidation LEANDRO/LLL. opacities RUL/ RLL ? atx vs scar. no effusions. upper lobe interolbular septal thickening = ? interstitial edema. dilated main PA c/w pulm HTN. CXR 04/12 reviewed: LEANDRO and RLL infiltrates incr'd vs prior (RLL new); dense L base (obscured). small R effusion. diffuse interstitial > alveolar markings in background, no vascular redistributation tele: afib, rvr at times a/p: acute hypoxic resp failure, PNA, sepsis: - lactate elevated initially, with multilobar PNA, fever - recently euvolemic off of bumex as outpatient (bumex held when here 2017 with progressive myeloma bony pain and poor po, with dehydration and hypercalcemia) - multifactorial chronic sob (copd, diast chf, and ? related to very large hiatal hernia). - nonspecific findings of possible interstitial edema on CT (vs chronic interstitial changes--comparison to prior CT not described on report). in absence of pleural effusions or signs of volume on exam, will not agggressively diurese (hold diuretics) - 04/05 had episode of resp distress overnight, reportedly sx's improved s/p lasix 40 iv - lasix 40 po qd started at that time, rep status has been stable. ? of aspiration PNA here. - abx, suppl O2, supportive care per hospitalist/pulm/ID - 04/13-04/17: + hypernatremia. CXR suspicious for pneumonic infiltrates without convincing CHF picture (background of interstitial dz sec to copd likely). appears euvolemic, not taking po. stopped lasix. free water if peg decided upon , family meeting planned. lethargy: - + influenza A, vre uti and possible asp pna --> mgm't of infection per id/pmd Afib - continue bb and dilt if able to take po - prn iv lopressor for hr control if unable to take po meds reliably - cont coumadin dosing prn for goal INR 2-3 VTach: -one run NSVT on monitor (7 beats) -normal LVEF, on BB mild-mod MR - functional, likely related to volume status - echo 06/2015 stable anemia/multiple myeloma - 2/2 multiple myeloma. heme following. - complicated by vertebral fractures. currently on home hospice per cards office notes. - counts stable around 7-8, monitor on coumadin
[2017-04-17] MEDS ORDERED: MAGNESIUM SULFATE IN WATER 2 GM/50 ML IVPB IVPB ONE (11:00)
[2017-04-17] MEDS ORDERED: MAGNESIUM 1GM/D5W - 1 GM/100 ML IVPB IVPB ONE (11:00)
--- NOTE | 2017-04-17 11:08 | PN ---
Progress Note (short form) - Note Progress Note: PULMONARY PROGRESSIVE RESP FAILURE TACHYPNEIC AND DESATURATING ON NIPPV 100%FIO2 CHART REVIEWED RR30 HR 122 IRREGULAR BP 130/62 PALE RHONCHI DIFFUSE S1S2 TACHY SOFT NO EDEMA IMP ACUTE HYPOXEMIC/HYPERCAPNEIC RESPIRATORY FAILURE PNEUMONIA INFLUENZA A SWAB + (1-18) CHF AFIB COPD DM MM ANEMIA HYPERNATREMIA PLAN ABG STAT WILL EITHER NEED TO BE INTUBATED OR REMAIN ON NIPPV WITH COMFORT MEASURES NIPPV NEEDED INHALED BRONCHODILATORS RATE CONTRO MONITOR H+H MONITOR HUANG PEÑA MD Problem List - Problems (1) Acute respiratory failure with hypoxia Code(s): J96.01 - ACUTE RESPIRATORY FAILURE WITH HYPOXIA (2) COPD (chronic obstructive pulmonary disease) Code(s): J44.9 - CHRONIC OBSTRUCTIVE PULMONARY DISEASE, UNSPECIFIED (3) Chronic a-fib Code(s): I48.2 - CHRONIC ATRIAL FIBRILLATION (4) Influenza A Code(s): J10.1 - FLU DUE TO OTH IDENT INFLUENZA VIRUS W OTH RESP MANIFEST (5) Metabolic encephalopathy Code(s): G93.41 - METABOLIC ENCEPHALOPATHY (6) Pneumonia Code(s): J18.9 - PNEUMONIA, UNSPECIFIED ORGANISM (7) Anemia Code(s): D64.9 - ANEMIA, UNSPECIFIED Qualifiers: Anemia type: unspecified type Qualified Code(s): D64.9 - Anemia, unspecified (8) Diabetes mellitus Code(s): E11.9 - TYPE 2 DIABETES MELLITUS WITHOUT COMPLICATIONS
[2017-04-17 11:22] LABS: ALLENS TEST POSITIVE; ARTERIAL BLD GAS O2 SATURATION 86.8 % (90-98.9); ARTERIAL BLOOD GAS BASE EXCESS -4.5 meq/l (-2-2); ARTERIAL BLOOD GAS PCO2 44.5 mmHg (35-45)
--- NOTE | 2017-04-17 12:44 | PN ---
Teaching Attending Note Name of Resident: Rafy Owens (Nephrology) ATTENDING PHYSICIAN STATEMENT I saw and evaluated the patient. I reviewed the resident's note and discussed the case with the resident. I agree with the resident's findings and plan as documented. SUBJECTIVE: OBJECTIVE: ASSESSMENT AND PLAN: Current Medications Generic Name Dose Route Start Last Admin Trade Name Freq PRN Reason Stop Dose Admin Acetaminophen 650 mg 04/02/17 23:43 04/15/17 22:29 Tylenol - PO 650 mg Q12H PRN Administration PAIN Acetaminophen 850 mg 04/05/17 22:41 04/17/17 09:50 Ofirmev Injection - IVPB 850 mg Q8H PRN Administration Acetylcysteine 600 mg 04/12/17 16:21 04/17/17 11:04 Mucomyst 20 Oral / Inh Use Only* NEB 600 mg RQID [facility] Administration Albuterol Sulfate 1 amp 04/15/17 08:00 04/17/17 11:04 Ventolin 0.083% Nebulizer Soln - NEB 1 amp RQID [facility] Administration Atorvastatin Calcium 20 mg 04/03/17 22:00 04/16/17 23:41 Lipitor - PO Not Given HS [facility] Cholecalciferol 2,000 unit 04/03/17 10:00 04/16/17 10:38 Vitamin D3 - PO Not Given DAILY [facility] Dextrose 25 gm 04/10/17 16:25 D50w (Vial) - IVPUSH PRN PRN hypoglycemia <75 Diltiazem HCl 60 mg 04/04/17 15:45 04/17/17 06:05 Cardizem - PO Not Given TID [facility] Docusate Sodium 100 mg 04/03/17 10:00 04/16/17 23:42 Colace - PO Not Given BID [facility] Guaifenesin 600 mg 04/06/17 01:30 04/16/17 23:41 Mucinex - PO Not Given BID [facility] Linezolid 600 mg in 300 mls @ 300 mls/hr 04/13/17 13:30 04/17/17 01:38 Zyvox 600 Mg Premix Bag (Restricted To Id) - IVPB 300 mls/hr BID@0200,1400 [facility] Administration Protocol Dextrose 1,000 mls @ 50 mls/hr 04/17/17 10:15 D5w - IV ASDIR [facility] Insulin Aspart 1 vial 04/03/17 07:00 04/17/17 06:06 Novolog Vial Sliding Scale - SQ 4 units ACHS [facility] Administration Protocol Metoprolol Succinate 50 mg 04/06/17 10:00 04/16/17 10:55 Toprol Xl - PO Not Given DAILY [facility] Metoprolol Tartrate 5 mg 04/15/17 11:07 04/17/17 10:01 Lopressor Injection - IVPUSH 5 mg Q4H PRN Administration TACHYCARDIA Montelukast Sodium 10 mg 04/03/17 22:00 04/16/17 23:41 Singulair - PO Not Given HS [facility] Polyethylene Glycol 17 gm 04/03/17 10:00 04/16/17 23:41 Miralax (For Daily Use) - PO Not Given BID [facility] Propylthiouracil 50 mg 04/03/17 10:00 04/16/17 10:38 Ptu - PO Not Given DAILY [facility] Laboratory Tests 04/17/17 06:45 Sodium 151 H Creatinine 1.3 H gen restless cardio s1s2 pulm rhonchi, on bipap Gi soft ext neg edema neuro awake Impression 1. acute resp failure 2. CHF 3. hx meningioma 4. DM 5. HTN 6. hx myeloma 7. anemia 8. hypernatremia 9. hypokalemia Plan - pt is clinically failing - will need intubation vs bipap with comfort measures - cxr no sig change - family meeting for [facility]
[2017-04-17 14:03] VITALS: TEMP 97.6
--- NOTE | 2017-04-17 15:13 | DS ---
Physical Examination Vital Signs: Vital Signs Temperature 36.4 C 04/17/17 08:00 Pulse Rate 123 H 04/17/17 10:01 Respiratory Rate 39 H 04/17/17 09:00 Blood Pressure 130/62 04/17/17 10:01 O2 Sat by Pulse Oximetry (%) 91 L 04/17/17 09:00 Labs: CBC, BMP 04/17/17 06:45 04/17/17 06:45 Discharge Summary Reason For Visit: FRACTURE OF VERTEBRA Current Active Problems Acute diverticulitis (Acute) Acute respiratory failure with hypoxia (Acute) Acute respiratory failure with hypoxia and hypercapnia (Acute) COPD (chronic obstructive pulmonary disease) (Acute) Chronic a-fib (Acute) Diverticulitis (Acute) Hypokalemia (Acute) Hypomagnesemia (Acute) Influenza A (Acute) Influenza A (Acute) Metabolic encephalopathy (Acute) Pneumonia (Acute) SOB (shortness of breath) (Acute) T2DM (type 2 diabetes mellitus) (Acute) Vertebral fracture (Acute) Hospital Course: Ms Sanchez presented to the hospital and was found to have colitis. She was admitted to the hospital and started on broad spectrum antibiotics. At first she was npo on bowel rest, but her condition improved and her diet was advanced. After initial improvement, her respiratory status worsened. She had finished a full course of zosyn at this time and there was concern for aspiration. Speech therapy was consulted and modified barium swallow was declined by family. Patient then became septic and ID was consulted, flu swab was sent and it was found to be positive. She was started on tamiflu but continued to have worsening mental status. She was seen to be coughing with po intake so this was stopped, family was also told to not attempt to feed the patient secondary to mental status. Patient's respiratory status continued to decline. Multiple meetings were held about [facility], family stated patient said she was DNR and signed the DNR paperwork. When asked if patient would desire intubation, Mehrdad (who is one of the HCP) stated he believes Ms Sanchez would not want to be intubated. However he wanted to discuss with his family before making her DNI officially. Before this family meeting occurred, Ms Sanchez went into respiratory failure. A call was placed to Triston (the secondary HCP) and he was made aware of the impending intubation. A quick discussion about possible DNI ensued with it ending with him stating he will call me back. Case was discussed emergently with pulmonary and patient was being prepared for intubation. However in planning for intubation patient became asystolic. Since patient was DNR intubation would have been futile and this was cancelled. Patient . over 60 minutes spent in care of this patient prior to expiration Condition: Stable - Instructions Referrals: Dallas Avalos MD [Primary Care Provider] - - Home Medications Comprehensive Discharge Medication List: Ambulatory Orders Atorvastatin Ca [Lipitor] 20 mg PO HS 08/14/16 Diltiazem [Cardizem -] 60 mg PO BID 08/14/16 Ergocalciferol (Vitamin D2) [Vitamin D2] 2,000 unit PO DAILY 08/14/16 Metformin HCl [Metformin HCl ER] 500 mg PO BID 08/14/16 Metoprolol Tartrate [Lopressor -] 25 mg PO DAILY 08/14/16 Montelukast Na [Singulair -] 10 mg PO HS 08/14/16 Pregabalin [Lyrica -] 50 mg PO BID 08/14/16 Propylthiouracil 50 mg PO DAILY 08/14/16 Albuterol 0.083% Nebulizer Juani [Ventolin 0.083% Nebulizer Soln -] 1 amp NEB Q6H PRN #30 amp 08/26/16 Ipratropium 0.02% Nebulizer [Atrovent 0.02% Nebulizer -] 1 amp NEB Q6H PRN #30 amp 08/26/16 Acetaminophen [Tylenol] 650 mg PO BID PRN 11/01/16 Lorazepam 0.25 mg PO BID 11/01/16 Potassium Chloride [K-Dur -] 20 meq PO BID #60 tab.ec 11/03/16 Warfarin Na [Coumadin -] 3 mg PO DAILY@1800 11/10/16 Docusate Sodium [Colace -] 100 mg PO BID #60 cap 11/14/16 Polyethylene Glycol 3350 [Miralax 119 gm Btl -] 17 gm PO BID #1 bottle 11/14/16 Oxycodone HCl 5 mg PO PRN 03/31/17
--- NOTE | 2017-04-17 17:34 | RAPID ---
Physical Examination Vital Signs: Vital Signs Temperature 97.6 F 04/17/17 08:00 Pulse Rate 123 H 04/17/17 10:01 Respiratory Rate 39 H 04/17/17 09:00 Blood Pressure 130/62 04/17/17 10:01 O2 Sat by Pulse Oximetry (%) 91 L 04/17/17 09:00 Findings/Remarks: Rapid response was called at 11:46am. The team reached there immediately. RN mentioned patient was hypotensive and in respiratory distress, with low pulse. Patient was placed in [place] position, pulses was palpable at around 40 beats per minute. Anesthesia was called immediately for intubation. Patient was confirmed DNR, but not DNI. After 1 minute, could not feel pulse, no dopplerable pulse. Family members informed, who arrived there shortly. Primary team notified who arrived at bed side. However in planning for intubation, patient became asystolic. Pronounced at 11:54 Family by bed-side. Labs: CBC, BMP 04/17/17 06:45 04/17/17 06:45
== END 2017-04-17 16:47 | disposition expired | DRG 193 ==
LOC: JER 14:14 → JERBED 23:35 → J7W 03-30 01:38 → J4W 04-02 22:30
PROVIDERS: ADMIT Internal Medicine; ATTEND Internal Medicine
PROC: 5A09557 Assistance with Respiratory Ventilation, Greater than 96 Consecutive Hours, Continuous Positive Airway Pressure (ICD-10-PCS; principal; 2017-04-10)
DX: J18.9 Pneumonia, unspecified organism (principal); J96.01 Acute respiratory failure with hypoxia; J96.02 Acute respiratory failure with hypercapnia; G93.41 Metabolic encephalopathy; A41.9 Sepsis, unspecified organism; C90.00 Multiple myeloma not having achieved remission; K57.92 Diverticulitis of intestine, part unspecified, without perforation or abscess without bleeding; M48.56XA Collapsed vertebra, not elsewhere classified, lumbar region, initial encounter for fracture; I50.32 Chronic diastolic (congestive) heart failure; M48.54XA Collapsed vertebra, not elsewhere classified, thoracic region, initial encounter for fracture; I47.2 Ventricular tachycardia; E87.0 Hyperosmolality and hypernatremia; N39.0 Urinary tract infection, site not specified; N17.9 Acute kidney failure, unspecified; I11.0 Hypertensive heart disease with heart failure; E87.6 Hypokalemia; J10.1 Influenza due to other identified influenza virus with other respiratory manifestations; E83.42 Hypomagnesemia; E87.5 Hyperkalemia; I48.2 Chronic atrial fibrillation; K44.9 Diaphragmatic hernia without obstruction or gangrene; E83.39 Other disorders of phosphorus metabolism; Z79.84 Long term (current) use of oral hypoglycemic drugs; E78.5 Hyperlipidemia, unspecified; J44.9 Chronic obstructive pulmonary disease, unspecified; D64.9 Anemia, unspecified; E11.9 Type 2 diabetes mellitus without complications; E05.90 Thyrotoxicosis, unspecified without thyrotoxic crisis or storm; K59.00 Constipation, unspecified; M54.9 Dorsalgia, unspecified; I34.0 Nonrheumatic mitral (valve) insufficiency; Z87.891 Personal history of nicotine dependence; Z66 Do not resuscitate
CPT/HCPCS: 36415; 36600; 71045-TC; 71250-TC; 74176-TC; 80048; 80053; 81003; 81015; 82150; 82550; 82784; 82803; 82962; 83605; 83690; 83735; 83880; 83883; 84100; 84155; 84165; 84443; 84484; 85025; 85379; 85610; 85730; 86140; 86334; 86850; 86900; 86901; 87040; 87086; 87186; 87804; 87899; 93005; 93010; 94640; 94660; 97116-GP; 97161-GP; 99285-25; G0480; J1644